=== PATIENT | male | born 1940 | race Caucasian/White ===

== ENCOUNTER → 2018-08-25 09:34 | Outpatient (CLI) | payer MEDICARE, SELFPAY ==
[2016-11-14 10:40] VITALS: BMI 20.4
--- NOTE | 2018-08-25 09:37 | RAD_ITS ---
STUDY: X-RAY - LEFT KNEE REASON FOR EXAM: Male, 77 years old. KNEE PAIN TECHNIQUE: 4 view(s) of the knee. COMPARISON: None. FINDINGS: There is demineralization of the visualized distal femur. There is demineralization of the tibia and fibula. Normal proximal tibiofibular articulation. Total left knee arthroplasty. Normal medial femorotibial compartment. Normal lateral femorotibial compartment. Normal patellofemoral articulation. The soft tissue structures are unremarkable. RAD/Knee 4 or More Views IMPRESSION: Total knee arthroplasty. Electronically Signed: Felix Hamlin MD at 17:53 EST , Service support ,
--- OUTSIDE RECORDS SUMMARY | 2018-10-11 03:13 | XMS RPT_ITS ---
:1940 Author Organization OHIP Care Team Providers Name Role Phone JOSUE BOUCHER Admitting Unavailable JOSUE BOUCHER Attending Unavailable JOSUE BOUCHER Admitting Unavailable JOSUE BOUCHER Attending Unavailable ANDERSON CROWLEY Attending Unavailable ANDERSON CROWLEY Referring Unavailable ANDERSON CROWLEY Referring Unavailable ANDERSON CROWLEY Referring Unavailable JOSUE BOUCHER Attending Unavailable ANDERSON CROWLEY Referring Unavailable POLLY CARTAGENA (TIRE VULCANIZER) Referring Unavailable POLLY CARTAGENA (TIRE VULCANIZER) Attending Unavailable JOSUE HARTMANN Referring Unavailable VALERIE CHO (PA) Attending Unavailable ANDERSON CROWLEY Referring Unavailable REBECCA WILKES (TIRE VULCANIZER) Attending Unavailable JOSUE BOUCHER Referring Unavailable WILSON MOYA Attending Unavailable Tasia Trotter Attending Unavailable Anderson Crowley Referring Unavailable Tasia Trotter Attending Unavailable Tasia Trotter Referring Unavailable Anderson Crowley Primary Care Unavailable PROBLEMS PROBLEMS DATE TYPE CONDITION / CODE ATTENDING STATUS SOURCE 09/14/2018 Unknown M25.562 - Pain in [place], Active [facility] left knee / [facility] M25.562(ICD-10) Hospital Repository 08/29/2018 Unknown M17.12 - Unilateral [place], Active [facility] primary [facility]ly [facility] osteoarthritis, left Hospital knee / Repository M17.12(ICD-10) 05/19/2018 Active Spondylosis without JOSUE BOUCHER Active [facility] [place] [facility] myelopathy or Clinic Other radiculopathy, [place] lumbar region / Repository M47.816(ICD-10) 03/31/2018 Active Unspecified JOSUE BOUCHER Active [facility] inflammatory Clinic Other spondylopathy, [place] sacral and Repository sacrococcygeal region / M46.98(ICD-10) 03/31/2018 Active Sacrococcygeal JOSUE BOUCHER Active [facility] disorders, not Clinic Other elsewhere classified [place] / M53.3(ICD-10) Repository 03/31/2018 Active Other chronic pain / JOSUE BOUCHER Active [facility] G89.29(ICD-10) Clinic Other [place] Repository 03/26/2015 Active Personal history of NA Active [facility] malignant neoplasm Clinic Main of larynx / [place] Z85.21(ICD-10) Repository 03/14/2018 Active Unknown / JOSUE BOUCHER Active [facility] UNK(Unknown) Clinic Main [place] Repository 03/02/2018 Active 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[facility] ectasia / Clinic Main I77.811(ICD-10) [place] Repository 01/13/2014 Active Other intervertebral NA Active [facility] disc degeneration, Clinic Main lumbar region / [place] M51.36(ICD-10) Repository 02/21/2018 Active Benign prostatic NA Active [facility] hyperplasia with Clinic Main lower urinary tract [place] symptoms / Repository N40.1(ICD-10) PROCEDURES PROCEDURES No Procedure Records FoundRESULTS RESULTS ORTHOPEDIC VISIT Observed: 08/25/2018 Status: F Source: [facility] RE[facility] 10:49 AM [facility] [place] REPOSITORY [facility] [address] [place] [address] OFFICE VISIT Date of Service: 08/25/18 MR#: [id number] Acct: [id number] Name: BARTOOLLUDINMADDI Rep #: [id number] : 1940 Provider: Tasia Trotter DO Age/Sex: 77/M Location: [facility] [place] Status: Signed Intake Intake Visit Reasons: LEFT KNEE Is patient in pain?: No Allergies morphine Adverse Reaction (Verified 08/25/18 09:30) Vomiting DUST Allergy (Uncoded 11/14/16 10:43) Other MOLD Allergy (Uncoded 11/14/16 10:43) Other Medications Atenolol [Tenormin (beta racheal)] 12.5 mg PO DAILY 09/15/16 [History Confirmed 09/08/17] Fluticasone 0.05% [Flonase Nasal [place]] 2 spray NASAL QHS 09/15/16 [History Confirmed 09/08/17] gabapentin 300 mg capsule 300 mg PO .QID cap 09/02/17 [History Confirmed 09/08/17] omeprazole 20 mg capsule,delayed release 20 mg PO BID 09/02/17 [History Confirmed 09/08/17] PFSH Surgical History H/O hernia repair (Inactive) History of tonsillectomy (Inactive) S/P total knee arthroplasty (Inactive) Social History Smoking Status: Former smoker how long ago did patient quit smokin HPI LEFT KNEE: Details: MADDI EATON is a 77 year old M here today for a year followup after his left TKA by Dr Cazares on 09/22/17. Patient states that his knee is doing better than prior to surgery. He has clicking at times but it is not often. Patient is pleased with his surgery. He denies any restrictions and is back to all of his activities. ROS Const Reports system reviewed and no additional complaints, except as docu Eyes Reports system reviewed and no additional complaints, except as docu ENT Reports system reviewed and no additional complaints, except as docu Card Reports system reviewed and no additional complaints, except as docu Resp Reports system reviewed and no additional complaints, except as docu GI Reports system reviewed and no additional complaints, except as docu Reports system reviewed and no additional complaints, except as docu Skin/Breast Reports system reviewed and no additional complaints, except as docu Neuro Yes system reviewed and no additional complaints, except as docu Psych Reports system reviewed and no additional complaints, except as docu Endo Reports system reviewed and no additional complaints, except as docu Ortho Exam Left Knee Skin/Wound: Yes CDI Contralateral Normal: Yes Swelling: No Homans Sign: No Knee ROM: Yes ROM-Extension -20 to 0, Yes ROM-Flexion 0-140 Assessment AND Plan 1. Osteoarthritis of left knee M17.12 Plan X-rays were reviewed. There is no obvious fracture, dislocation, or lucency noted, well aligned and seated TKA He is doing great and has full painfree rom. Follow up as needed or sooner if pain, swelling, numbness or associated symptoms, or concerns develop. All questions answered. Patient in agreement of plan. Plan Detail Other Orders Orders: Coding Level of Care Code Off vis,est,level 2 Diagnoses Osteoarthritis of left knee M17.12 08/25/18 1049 <Electronically signed by Tasia Trotter DO> Date Tasia Trotter DO Cosigner Signature: Date (if applicable) CC: KNEE 4 OR MORE Observed: 08/25/2018 Status: F Source: [facility] VIEWS 9:37 AM [facility] REPOSITORY [facility] Imaging Services [address] [place] [address] Knee 4 or More Views MR#: [id number] Acct: [id number] Name: TRINOMADDI C Rep #: [id number] : 1940 77 From: Felix Hamlin MD PCP: Anderson Crowley MD Status: REG CLI Study: Knee 4 or More Views Date of Exam: 08/25/18 Exam# [id number] Ordering Dr: Tasia Trotter DO STUDY: X-RAY - LEFT KNEE REASON FOR EXAM: Male, 77 years old. KNEE PAIN TECHNIQUE: 4 view(s) of the knee. COMPARISON: None. FINDINGS: There is demineralization of the visualized distal femur. There is demineralization of the tibia and fibula. Normal proximal tibiofibular articulation. Total left knee arthroplasty. Normal medial femorotibial compartment. Normal lateral femorotibial compartment. Normal patellofemoral articulation. The soft tissue structures are unremarkable. RAD/Knee 4 or More Views IMPRESSION: Total knee arthroplasty. Electronically Signed: Felix Hamlin MD at 17:53 EST , Service support , CC: Tasia Trotter DO; Anderson Crowley MD Truck Despatcher: Signed PROGRESS Observed: 06/20/2018 Status: COMPLETED Source: [place] 9:15 AM [facility] REPOSITORY HNO ID: [id number] Author: Wilson Moya Service: (none) Author Type: Physician Type: Progress Notes Filed: 06/21/2018 9:08 AM Note Text: [facility] Note CC: Difficulty swallowing Last clinic visit on 06/28/[address] Odom. 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 He has had persistent difficulty swallowing after treatment. 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 He reports that pills and some liquids and solids feel as though they get stuck. Every few months he might have some nasal regurgitation but he is not bothered by it. He continues not smoke and he has stable hoarse voice. He has no new lymphadenopathy, change in hearing, otalgia. Current Outpatient Prescriptions: B Complex Vitamins capsule Take 1 capsule by mouth once daily. Disp: Rfl: atenolol (TENORMIN) 25 mg tablet Take 0.5 tablets by mouth once daily. Disp: 45 tablet Rfl: 3 omeprazole (PRILOSEC) 20 mg capsule Take 1 capsule by mouth twice daily. Disp: 180 capsule Rfl: 3 gabapentin (NEURONTIN) 300 mg capsule Take 1 capsule by mouth three times daily for 28 days. Disp: 270 capsule Rfl: 3 midodrine (PROAMITINE) 5 mg tablet Take 1 tablet by mouth three times daily. Disp: 270 tablet Rfl: 3 betamethasone valerate 0.1 % lotion Apply 1 application to affected area twice daily. For scalp itch Disp: 240 mL Rfl: 0 ketoconazole (NIZORAL) 2 % shampoo Shampoo twice a week: leave on for 2-3 minutes Disp: 240 mL Rfl: 2 CALCIUM CARBONATE/VITAMIN D3 (VITAMIN D-3 ORAL) Take by mouth once daily. Disp: Rfl: acetaminophen (TYLENOL) 325 mg tablet Take 2 tablets by mouth every 6 hours as needed for Pain. Disp: Rfl: 0 Ascorbic Acid (VITAMIN C) 1,000 mg ORAL tablet Take 1,000 mg by mouth once daily. Disp: Rfl: Vitamin E 400 unit ORAL Tab Take 1 tablet by mouth once daily. Disp: Rfl: multivitamin ORAL tablet Take 1 tablet by mouth once daily. Disp: Rfl: 0 No current facility-administered medications for this visit. EXAM: Constitutional - General Appearance: well developed, well nourished, without obvious deformities Communication: speaks with a hoarse voice without hoarseness Head AND Face - Overall: no obvious scars, lesions or masses Parotid and submandibular glands: no masses or tenderness Facial strength: normal and equal bilaterally Ear, Nose, Mouth AND Throat - Ears: both left and right external auditory canals and TM's are normal, no external deformities Nasal exam: mucosa is pink, septum is midline, visible turbinates are normal on anterior rhinoscopy Mastication: teeth appear to have some cavities Oral Cavity and oropharynx: mucosa, hard and soft palates, tongue, tonsil area, posterior pharyngeal wall, lips and gums are without lesions Neck: [place] edema in the bilateral neck, appears symmetric, and on palpation is without masses or lymphadenopathy Thyroid: no asymmetry, thyromegaly, or thyroid nodules on palpation Neuro: CN III - CN XII grossly intact Procedure: Flexible laryngoscopy was performed because of the following indication: Poor visualization with mirror and/or the need for high resolution imaging of the larynx and dynamic airway. After spraying the nose with xylocaine/neosynephrine, the flexible scope was placed in a transnasal fashion. The nasopharynx, oropharynx, hypopharynx including the pyriform sinuses showed dry mucosa AND some prominent blood vessels. The base of tongue showed no gross lesions. The larynx itself showed no lesions. The vocal cords moved well bilaterally. Procedure performed by Wilson Moya MD. 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 No evidence of disease reoccurrence. Dysphagia remains stable and he is tolerating a regular diet without weight loss. PLAN AND RECOMMENDATIONS: 1. Flexible laryngoscopy today 2. Follow-up as needed Adrián Beavers MD For the service of Wilson Moya MD June 21, 2018 I participated in the history and physical exam of Maddi Eaton. I discussed the management of Maddi Eaton with the resident. I reviewed the resident's note and agree with the documented findings and plan of care. Wilson Moya MD CNOV Observed: 06/20/2018 Status: COMPLETED Source: [place] 9:00 AM [facility] REPOSITORY Office Visit (OTOLMN) MADDI EATON ([id number]) 1940 M Date Time Provider Department 06/20/18 9:00 AM WILSON MOYA OTOLVT During your visit today, we recorded the following information about you: Wilson Moya MD 06/21/2018 9:08 AM Signed [facility] Note CC: Difficulty swallowing Last clinic visit on 06/28/[address] Odom. 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 He has had persistent difficulty swallowing after treatment. 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 He reports that pills and some liquids and solids feel as though they get stuck. Every few months he might have some nasal regurgitation but he is not bothered by it. He continues not smoke and he has stable hoarse voice. He has no new lymphadenopathy, change in hearing, otalgia. Current Outpatient Prescriptions: B Complex Vitamins capsule Take 1 capsule by mouth once daily. Disp: Rfl: atenolol (TENORMIN) 25 mg tablet Take 0.5 tablets by mouth once daily. Disp: 45 tablet Rfl: 3 omeprazole (PRILOSEC) 20 mg capsule Take 1 capsule by mouth twice daily. Disp: 180 capsule Rfl: 3 gabapentin (NEURONTIN) 300 mg capsule Take 1 capsule by mouth three times daily for 28 days. Disp: 270 capsule Rfl: 3 midodrine (PROAMITINE) 5 mg tablet Take 1 tablet by mouth three times daily. Disp: 270 tablet Rfl: 3 betamethasone valerate 0.1 % lotion Apply 1 application to affected area twice daily. For scalp itch Disp: 240 mL Rfl: 0 ketoconazole (NIZORAL) 2 % shampoo Shampoo twice a week: leave on for 2-3 minutes Disp: 240 mL Rfl: 2 CALCIUM CARBONATE/VITAMIN D3 (VITAMIN D-3 ORAL) Take by mouth once daily. Disp: Rfl: acetaminophen (TYLENOL) 325 mg tablet Take 2 tablets by mouth every 6 hours as needed for Pain. Disp: Rfl: 0 Ascorbic Acid (VITAMIN C) 1,000 mg ORAL tablet Take 1,000 mg by mouth once daily. Disp: Rfl: Vitamin E 400 unit ORAL Tab Take 1 tablet by mouth once daily. Disp: Rfl: multivitamin ORAL tablet Take 1 tablet by mouth once daily. Disp: Rfl: 0 No current facility-administered medications for this visit. EXAM: Constitutional - General Appearance: well developed, well nourished, without obvious deformities Communication: speaks with a hoarse voice without hoarseness Head AND Face - Overall: no obvious scars, lesions or masses Parotid and submandibular glands: no masses or tenderness Facial strength: normal and equal bilaterally Ear, Nose, Mouth AND Throat - Ears: both left and right external auditory canals and TM's are normal, no external deformities Nasal exam: mucosa is pink, septum is midline, visible turbinates are normal on anterior rhinoscopy Mastication: teeth appear to have some cavities Oral Cavity and oropharynx: mucosa, hard and soft palates, tongue, tonsil area, posterior pharyngeal wall, lips and gums are without lesions Neck: [place] edema in the bilateral neck, appears symmetric, and on palpation is without masses or lymphadenopathy Thyroid: no asymmetry, thyromegaly, or thyroid nodules on palpation Neuro: CN III - CN XII grossly intact Procedure: Flexible laryngoscopy was performed because of the following indication: Poor visualization with mirror and/or the need for high resolution imaging of the larynx and dynamic airway. After spraying the nose with xylocaine/neosynephrine, the flexible scope was placed in a transnasal fashion. The nasopharynx, oropharynx, hypopharynx including the pyriform sinuses showed dry mucosa AND some prominent blood vessels. The base of tongue showed no gross lesions. The larynx itself showed no lesions. The vocal cords moved well bilaterally. Procedure performed by Wilson Moya MD. 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 No evidence of disease reoccurrence. Dysphagia remains stable and he is tolerating a regular diet without weight loss. PLAN AND RECOMMENDATIONS: 1. Flexible laryngoscopy today 2. Follow-up as needed Adrián Beavers MD For the service of Wilson Moya MD June 21, 2018 I participated in the history and physical exam of Maddi Eaton. I discussed the management of Maddi Eaton with the resident. I reviewed the resident's note and agree with the documented findings and plan of care. MD Julia Coulter Ma 06/20/2018 9:17 AM Signed Tobacco Use: 3 packs/day, for 46 years. Quit 06/17/2003. Types: Cigarettes, Chew Was smoking cessation packet given? N/A - Patient is a non- smoker or quit >1 year ago. Was a referral initiated?N/A Patient is a non-smoker Referring Provider: SELF [200] Allergies As of Date: 06/20/2018 Noted Allergy Reaction DUST 06/02/2005 MOLD 06/02/2005 MORPHINE 08/20/2008 11 - Vomiting POISON DENISSE 06/02/2005 Date Reviewed: 06/20/2018 Reviewed by: Julia Carmona Ma - Fully Assessed Reason for Visit: Established Patient [175] Cmt: follow up Primary Visit Diagnosis:History of cancer of head or neck [Z85.89] Other Visit Diagnosis:History of radiation to head and neck region [Z92.3] Prescriptions as of 06/20/2018 Sig: VITAMIN B COMPLEX CAPSULE Take 1 capsule by mouth once * ATENOLOL 25 MG TABLET Take 0.5 tablets by mouth onc* OMEPRAZOLE 20 MG CAPSULE,CIRO* Take 1 capsule by mouth twice* MIDODRINE 5 MG TABLET Take 1 tablet by mouth three * BETAMETHASONE VALERATE 0.1 % * Apply 1 application to affect* KETOCONAZOLE 2 % SHAMPOO Shampoo twice a week: leave o* VITAMIN D-3 ORAL Take by mouth once daily. ACETAMINOPHEN 325 MG TABLET Take 2 tablets by mouth every* * ASCORBIC ACID (VITAMIN C) 1,0* Take 1,000 mg by mouth once d* * VITAMIN E 400 UNIT TABLET Take 1 tablet by mouth once d* * MULTIVITAMIN TABLET Take 1 tablet by mouth once d* GABAPENTIN 300 MG CAPSULE Take 1 capsule by mouth three* Problem List As Of Date 06/20/2018 Noted Resolved Unspecified chest pain [R07.9] INVALID FOR*07/09/2010 CALCULUS OF KIDNEY [N20.0] INVALID FOR* Essential hypertension [I10] INVALID FOR* More... 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 Acute gastritis without mention of hemorrhage [*INVALID FOR*07/09/2010 Irritable bowel syndrome [K58.9] INVALID FOR*07/09/2010 Unspecified disorder of prostate [N42.9] INVALID FOR* More... Esophageal reflux [K21.9] INVALID FOR* More... MYALGIA AND MYOSITIS NOS [IOW2692] INVALID FOR* Pain in joint, multiple sites [M25.50] INVALID FOR*07/09/2010 RENAL AND URETERAL DIS NOS [N28.9] INVALID FOR* THYROID NODULE [E04.1] INVALID FOR*07/09/2010 ENLARGEMENT LYMPH NODES NECK [R59.9] INVALID FOR*07/09/2010 MALIG NEOPLASM SUPRAGLOTTIS - SQUAMOUS CELL CA *INVALID FOR*03/26/2014 More... Peripheral neuropathy, secondary to drugs or ch*INVALID FOR*12/10/2016 Diaphragmatic hernia without mention of obstruc*INVALID FOR* Acute gastritis without mention of hemorrhage [*INVALID FOR* Dysphagia [R13.10] INVALID FOR* Degeneration of cervical intervertebral disc [M*INVALID FOR* Cervicalgia [M54.2] INVALID FOR* DDD (degenerative disc disease), lumbar [M51.36]INVALID FOR* Degeneration of intervertebral disc, site unspe*INVALID FOR*12/10/2016 H/O malignant neoplasm of head and neck [Z85.89]INVALID FOR* Right shoulder pain [M25.511] INVALID FOR* Impingement syndrome of right shoulder [M75.41] INVALID FOR* 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] INVALID FOR*12/10/2016 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 Visit Notes: >> Julia Carmona Ma [facility] Jun 20, 2018 9:17 AM Status: Signed Tobacco Use: 3 packs/day, for 46 years. Quit 06/17/2003. Types: Cigarettes, Chew Was smoking cessation packet given? N/A - Patient is a non- smoker or quit >1 year ago. Was a referral initiated?N/A Patient is a non-smoker Encounter Status:Closed by WILSON MOYA MD on 06/21/18 PT ED Observed: 06/02/2018 Status: COMPLETED Source: [place] 10:45 AM [facility] OTHER [place] REPOSITORY HNO ID: [id number] Author: Emily (Rn) CHAVEZ Appiah Service: Nursing Author Type: Registered Nurse Type: Patient Education Filed: 06/02/2018 10:45 AM Note Text: POST OP LEARNING RESPONSE INSTRUCTION PROVIDED TO: Patient METHOD OF INSTRUCTION: Written instruction - handouts Verbal instruction PATIENT / FAMILY RESPONSE: Information received as demonstrated by interest and questions FOLLOW-UP PLAN: Patient instructed to call with any further issues SUPPLEMENTAL MATERIAL: None REFERRAL (RECOMMENDATION): None Electronically Signed By: Emily Appiah RN In Department: [facility] SURGERY XR FLUOROSCOPY Observed: 06/02/2018 Status: F Source: [place] 10:35 AM [facility] OTHER CAMPUS REPOSITORY * * *Final Report* * * DATE OF EXAM: Jun 02 2018 10:35AM [facility] 5513 - XR FLUOROSCOPY / PROCEDURE REASON: BILATERAL L5-S1 FACET MEDIAL BRANCH BLOCK FOR PAIN * * * * Physician Interpretation * * * * INDICATION: BILATERAL L5-S1 FACET MEDIAL BRANCH BLOCK FOR PAIN TECHNIQUE: Fluoroscopy with 3 views of the lower lumbar spine Fluoroscopic Radiation Summary: Plane A, Air Kerma: 4.6 mGy Dose Area Product (DAP): 414.2 mGy*cmS2 Fluoro time: 0:23 min:sec FINDINGS/ IMPRESSION: [place] are seen adjacent to the lowest to facet joints bilaterally. Please refer to the performing LIP's report. Truck Despatcher: PSCB Transcribe Date/Time: Jun 02 2018 10:51A Dictated by : KIRSTIN SPEARS MD This examination was interpreted and the report reviewed and electronically signed by: KIRSTIN SPEARS MD on Jun 02 2018 10:51AM EST [id number] OPERATIVE NO Observed: 06/02/2018 Status: COMPLETED Source: [place] 10:33 AM [facility] OTHER CAMPUS REPOSITORY HNO ID: [id number] Author: Josue Boucher Service: Pain Management Author Type: Physician Type: Operative Report Filed: 06/02/2018 10:35 AM Note Text: PATIENT NAME: Maddi Eaton SERVICE DATE: 06/02/2018 PROCEDURE NOTE PREOPERATIVE DIAGNOSIS(ES): Lumbar degenerative disc disease. Lumbar spondylosis. Lumbar facet arthropathy POSTOPERATIVE DIAGNOSIS(ES): Same OPERATION: Bilateral L5-S1 facet Lumbar Facet Medial Branch Nerve Blockunder fluoroscopy. ANESTHESIA: Versed 3 mg, IV INDICATIONS: Maddi Eaton presents for facet joint injection. The pain is persistent. Maddi Eaton denies any new neurological or pain complaints. The patient has spondylosis at lower lumbar segments with predominant changes at L5-S1 levels. As discussed in the office and confirmed today, the plan is to proceed with lumbar facet joint injection. The risks and benefits of the procedure were discussed. Specifically, the risks of bleeding, infection, inadvertent dural puncture, spinal heaches, vasovagal reaction, epidural hematoma, partial or permanent nerve injury were covered. The potential side effects of medications used in procedures including increase in lumbar pain, headaches, facial redness or warmth (flushing), anxiety or mood swings, sleeplessness, fever, high blood sugar, brief reduction in immunity were discussed. The patient expressed understanding of potential risks and wishes to proceed with the procedure. OPERATIVE PROCEDURE: The patient was brought to the OR. The patient was positioned prone on the fluoroscopy table. Continuous hemodynamic monitoring was initiated including blood pressure, EKG, and pulse oximetry. IV sedation was administered incrementally to allow the patient to remain comfortable and conversant throughout the procedure. The area of the lumbar spine was prepped povidone-iodine three times and draped into a sterile field. Fluoroscopy was rotated to right oblique projection to identify the location of the L5-S1 medial branch nerves at the junctions of the superior articular process and the transverse processes of L5, and the sacral ala respectively. Skin anesthesia was achieved using 10 cc of marcaine 0.25% over the injection sites. A 22 gauge, 3.5 spinal needle was slowly inserted at each level using AP, lateral and oblique fluoroscopic imaging. Negative aspiration for blood or CSF was confirmed. The fluoroscopy was then rotated to the contralateral side and the needle placement sites were identified. Same technique was used to place the needles on the contralateral side. There were total of 6 needle placements. A total of 4ml of a medication mixture of 5mg of Kenalog per 1ml of Marcaine 0.25% was injected. A total of 4 sites were injected in equal and divided doses. The needles were removed and bleeding was nil. A sterile dressing was applied. The patient tolerated the procedure well. The patient was taken to the recovery room in stable condition. EBL: nil Start time: 10:21 AM End time: 10:30 AM I was present the entire time and personally performed the procedure. SIGNATURE: Josue Boucher MD DATE: June 02, 2018 TIME: 10:34 AM HISTORY PHYSICAL Observed: 06/02/2018 Status: COMPLETED Source: [place] 10:10 AM [facility] OTHER CAMPUS REPOSITORY [facility] ID: [id number] Author: Josue Boucher Service: Pain Management Author Type: Physician Type: HANDP Filed: 06/02/2018 10:11 AM Note Text: HISTORY AND PHYSICAL EXAMINATION PATIENT NAME: Maddi Eaton DATE of SERVICE: 06/02/2018 Maddi Eaton is here for the pain mangement procedure. The patient presents with persistent pain complaints. Maddi Eaton denies any interval changes or new pain complaints or focal neurologic deficits. 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 - Orthostatic hypotension - Osteoarthrosis, unspecified whether generalized or localized, unspecified site osteoarthritis PAST SURGICAL HISTORY Procedure Laterality Date - COLONOSCOP W/ OR W/O BRSH SPEC 06/22/16 Colonoscopy - COLONOSCOPY W/BX 06/09/06 - EGD 06/28/2000 - EGD W/O BRSH SPECIMEN W/BX 06/2000, 06/09/06 - EGD W/O BRSH SPECIMEN W/BX 07/09/11 - EGD W/O OR W/BRUSH/WASH 02/17/16 EGD - PAST SURGICAL HISTORY OF 1959 left inguinal hernia - PAST SURGICAL HISTORY OF 1964 right inguinal hernia - PAST SURGICAL HISTORY OF kidney stones extraction - REMOVAL OF TONSILS,<14 Y/O age 10 Tonsillectomy - 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 Social History Marital status: Spouse name: Marcus Years of education: Number of children: 0 Occupational History Occupation Employer Comment [employer]* Social History Main Topics Smoking status: Former Smoker Packs/day: 3.00 Years: 46.00 Types: Cigarettes Quit date: 06/17/2003 Smokeless tobacco: Former User Types: Chew Quit date: 04/13/2009 Alcohol use: No Drug use: No FAMILY HISTORY Problem Relation Age of Onset - Heart Mother arthritis - other (unknown) Father ALLERGIES Allergen Reactions - Dust - Mold - Morphine Vomiting - Poison Denisse Current Facility-Administered Medications: NaCl 0.9% iv infusion 30 mL/hr INTRAVENOUS CONTINUOUS Physical Exam: Performed in conjunction with observation. The patient is alert and oriented x3. The patient is in no acute distress. Neck: Supple. The range of motion is intact. Lungs: clear CVR: RRR. Extremities: no reported edema or erythema. Examination indicates no changes Impression: Lumbar facet arthropathy Plan: The informed consent has been obtained. The plan is to proceed with the procedure as planned. SIGNATURE: Josue Boucher MD DATE: June 02, 2018 TIME: 10:11 AM PT ED Observed: 06/02/2018 Status: COMPLETED Source: [place] 9:17 AM CLINIC OTHER CAMPUS REPOSITORY [facility] ID: [id number] Author: Zay (Rn) CHAVEZ Murray Service: Nursing Author Type: Registered Nurse Type: Patient Education Filed: 06/02/2018 9:18 AM Note Text: PATIENT EDUCATION TOPIC: PROCEDURE / SURGERY: Pre-op Teaching: PATIENT NAME: Maddi Eaton PATIENT LOCATION: [place] Surgery/ME Surgery READINESS TO LEARN COGNITIVE ABILITY: Alert and oriented MOTIVATION TO LEARN: Eager FAMILY SUPPORT: Moderate - Family present but overwhelmed INSTRUCTION PROVIDED TO: Patient PATIENT LEARNS BEST BY: Individual Instruction Verbal Instruction FACTORS AFFECTING LEARNING: None PHYSICAL LIMITATIONS AFFECTING LEARNING: None LEARNING RESPONSE DIAGNOSIS: ADULT: PATIENT/FAMILY RESPONSE: Verbalizes understanding of: METHOD OF INSTRUCTION: Individual instruction Verbal instruction FOLLOW-UP PLAN: Patient instructed to call with any further issues Follow-up with Primary Care INSTRUCTIONAL AIDS USED: NA SUPPLEMENTAL MATERIAL PROVIDED TO PATIENT: None REFERRAL (RECOMMENDATION): None Electronically Signed By: Zay Murray RN [facility] Observed: 05/19/2018 Status: COMPLETED Source: [place] 12:00 AM [facility] REPOSITORY Patient:Maddi Eaton MRN: <[id number]> Height:6' 1(1.854 m) Weight:154 lb (69.854 kg) Outpatient Medications as of 06/02/18: B Complex Vitamins capsule atenolol (TENORMIN) 25 mg tablet omeprazole (PRILOSEC) 20 mg capsule gabapentin (NEURONTIN) 300 mg capsule midodrine (PROAMITINE) 5 mg tablet betamethasone valerate 0.1 % lotion ketoconazole (NIZORAL) 2 % shampoo CALCIUM CARBONATE/VITAMIN D3 (VITAMIN D-3 ORAL) acetaminophen (TYLENOL) 325 mg tablet Ascorbic Acid (VITAMIN C) 1,000 mg ORAL tablet Vitamin E 400 unit ORAL Tab multivitamin ORAL tablet Admission/Clinic Administered Medications as of 06/02/18: NaCl 0.9% iv infusion Problem List: Calculus of kidney [N20.0] Essential hypertension [I10] Personal history of tobacco use, presenting hazards to health [Z87.891] Benign neoplasm of colon [D12.6] Unspecified disorder of prostate [N42.9] Esophageal reflux [K21.9] Myalgia and myositis, unspecified [SUT8608] Unspecified disorder of kidney and ureter [N28.9] Diaphragmatic hernia without mention of obstruction or gangrene [K44.9] Acute gastritis without mention of hemorrhage [K29.00] Dysphagia [R13.10] Degeneration of cervical intervertebral disc [M50.30] Cervicalgia [M54.2] DDD (degenerative disc disease), lumbar [M51.36] H/O malignant neoplasm of head and neck [Z85.89] Right shoulder pain [M25.511] Impingement syndrome of right shoulder [M75.41] 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] Chronic fatigue [R53.82] 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, 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.36] Chronic obstructive pulmonary disease (HCC) [J44.9] Dysautonomia orthostatic hypotension syndrome (HCC) [G90.3] Chronic bilateral low back pain with left-sided sciatica [M54.42, G89.29] Chronic SI joint pain [M53.3, G89.29] 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 Boucher and he can try a bilateral L5-S1 facet injection Order placed. Please call patient and schedule Sarah Anaya 05/18/2018 2:08 PM Signed Patient will contact us back once he finds out about a ride, instructed patient the sooner the better as his injection dates are filling up. Progress Notes ([facility]): Rebecca Wilkes APRN.CNP 05/10/2018 10:35 AM Signed SUBJECTIVE: Maddi Eaton presents to [facility] Pain Management Department for a followup appointment for post injection and low back pain. Since the last visit, Maddi Eaton states the pain has been getting worse. Current pain intensity is 10 on a scale of 0-10. Pain located in Back area and radiates to the buttocks and both hips. Pain described as aching The patient Reports morning stiffness. Symptoms interfere with physical activity. Pain is exacerbated by standing, forward flexion, lifting, getting up from sitting and walking. Pain is mitigated by lying down. The patient is overall improved with the injections by 0%. REVIEW OF SYSTEMS: Constitutional: (-) Fever (-) Night Sweats (-) Weight Gain (-) Weight Loss (+) Fatigue Cardiovascular: (-) Chest Pain (-) Palpitations (+) Lightheadedness (-) Swelling of Ankles (-) Hx Heart Surgery Respiratory: (-) Shortness of Breath (-) Cough (-) Wheezing (-) Snoring Gastrointestinal: (-) Incontinence (-) Abdominal Pain (+) Diarrhea (+) Constipation (-) Nausea/Vomiting (-) Heart Burn Endocrine: (-) Thyroid Disorder (-) Diabetes Hematologic: (-) Prolonged Bleeding (-) Easy Bruising Genitourinary: (-) Incontinence (-) Frequency (-) Urinary Urgency Skin: (-) Rashes (-) Itching (-) Other Lesions Neurologic: (-) Headache (-) Double Vision (-) Confusion (-) Paralysis Psychiatric: (-) Depression (-) Anxiety (-) Delusions (-) Hallucinations (-) Personal History of Alcohol or Substance Abuse (-) Family History of Alcohol or Substance Abuse OBJECTIVE: Pulse 76 Wt 154 lb (69.9kg) SpO2 95% PHYSICAL EXAMINATION: General appearance: Well appearing, in no acute distress, alert Skin: Skin color, texture, turgor normal, no rashes or lesions Neck: No pain to palpation over the cervical paraspinous muscles. No pain with neck flexion, extension, or lateral flexion Cardiovascular: Regular rate Lungs: Normal respiratory rate and rhythm Abdomen: Abdomen soft and non-tender. Back: Intact range of motion with pain reproduction. Positive facet loading Spine: Reports Tenderness on palpation: Lumbar/Pelvic axial Extremities: No deformities, edema, or skin discoloration. Good capillary refill. Musculoskeletal: Bilateral upper and lower extremity strength is normal and symmetric. No atrophy or tone abnormalities are noted. Neuro: No loss of sensation is noted. Station and Gait: antalgic gait Motor: Exhibits full strength in all four extremities. Trigger points: none. ASSESSMENT: Assessment : Patient reports lower back pain and bilateral SI tenderness. He denies radicular symptoms and states the pain is more axial The pain radiates into the hips and buttocks He reports he experiences cramping in his feet She had a bilateral SI injections on ??18 and reports no improvement He completed physical therapy a year ago and continues to [place] the rec center using the exercise machines During the winter he cuts firewood using a chainsaw His primary care has some on gabapentin 300 mg 3 times a day Encounter Diagnosis ICD-10-CM 1. SI joint arthritis (HCC) M46.98 2. Chronic SI joint pain M53.3 G89.29 3. Degeneration of lumbar intervertebral disc M51.36 PDMP website checked and validated. All prescriptions have been APPROPRIATELY filled. No suspicious activity was identified. 05/10/2018 by Roselia Robbins MA Narcotic Agreement reviewed and signed?: N/A on May 10, 2018 The pain panel was N/A PLAN: 1) will discuss with Dr. Boucher if facet injections are an option. Will call patient and discuss further recommendations 2) continue to go to the rec center and use her exercise machines 3) RTC 3 months This note was partially generated using [employer] voice recognition system. The above plan and management options were discussed at length with patient. Patient is in agreement with the above and verbalized understanding. Rebecca Wilkes APRN, CNP May 10, 2018 Previous Version PROGRESS Observed: 05/10/2018 Status: COMPLETED Source: [place] 10:02 AM [facility] REPOSITORY [facility] ID: [id number] Author: Rebecca Ortiz (Ashok Wilkes Service: (none) Author Type: Nurse Practitioner Type: Progress Notes Filed: 05/10/2018 10:35 AM Note Text: SUBJECTIVE: Maddi Eaton presents to [facility] Pain Management Department for a followup appointment for post injection and low back pain. Since the last visit, Maddi Eaton states the pain has been getting worse. Current pain intensity is 10 on a scale of 0-10. Pain located in Back area and radiates to the buttocks and both hips. Pain described as aching The patient Reports morning stiffness. Symptoms interfere with physical activity. Pain is exacerbated by standing, forward flexion, lifting, getting up from sitting and walking. Pain is mitigated by lying down. The patient is overall improved with the injections by 0%. REVIEW OF SYSTEMS: Constitutional: (-) Fever (-) Night Sweats (-) Weight Gain (-) Weight Loss (+) Fatigue Cardiovascular: (-) Chest Pain (-) Palpitations (+) Lightheadedness (-) Swelling of Ankles (-) Hx Heart Surgery Respiratory: (-) Shortness of Breath (-) Cough (-) Wheezing (-) Snoring Gastrointestinal: (-) Incontinence (-) Abdominal Pain (+) Diarrhea (+) Constipation (-) Nausea/Vomiting (-) Heart Burn Endocrine: (-) Thyroid Disorder (-) Diabetes Hematologic: (-) Prolonged Bleeding (-) Easy Bruising Genitourinary: (-) Incontinence (-) Frequency (-) Urinary Urgency Skin: (-) Rashes (-) Itching (-) Other Lesions Neurologic: (-) Headache (-) Double Vision (-) Confusion (-) Paralysis Psychiatric: (-) Depression (-) Anxiety (-) Delusions (-) Hallucinations (-) Personal History of Alcohol or Substance Abuse (-) Family History of Alcohol or Substance Abuse OBJECTIVE: Pulse 76 Wt 154 lb (69.9kg) SpO2 95% PHYSICAL EXAMINATION: General appearance: Well appearing, in no acute distress, alert Skin: Skin color, texture, turgor normal, no rashes or lesions Neck: No pain to palpation over the cervical paraspinous muscles. No pain with neck flexion, extension, or lateral flexion Cardiovascular: Regular rate Lungs: Normal respiratory rate and rhythm Abdomen: Abdomen soft and non-tender. Back: Intact range of motion with pain reproduction. Positive facet loading Spine: Reports Tenderness on palpation: Lumbar/Pelvic axial Extremities: No deformities, edema, or skin discoloration. Good capillary refill. Musculoskeletal: Bilateral upper and lower extremity strength is normal and symmetric. No atrophy or tone abnormalities are noted. Neuro: No loss of sensation is noted. Station and Gait: antalgic gait Motor: Exhibits full strength in all four extremities. Trigger points: none. ASSESSMENT: Assessment : Patient reports lower back pain and bilateral SI tenderness. He denies radicular symptoms and states the pain is more axial The pain radiates into the hips and buttocks He reports he experiences cramping in his feet She had a bilateral SI injections on ? and reports no improvement He completed physical therapy a year ago and continues to go to the [facility] using the exercise machines During the winter he cuts firewood using a chainsaw His primary care has some on gabapentin 300 mg 3 times a day Encounter Diagnosis ICD-10-CM 1. SI joint arthritis (HCC) M46.98 2. Chronic SI joint pain M53.3 G89.29 3. Degeneration of lumbar intervertebral disc M51.36 PDMP website checked and validated. All prescriptions have been APPROPRIATELY filled. No suspicious activity was identified. 05/10/2018 by Roselia Robbins MA Narcotic Agreement reviewed and signed?: N/A on May 10, 2018 The pain panel was N/A PLAN: 1) will discuss with Dr. Boucher if facet injections are an option. Will call patient and discuss further recommendations 2) continue to go to the rec center and use her exercise machines 3) RTC 3 months This note was partially generated using [employer] voice recognition system. The above plan and management options were discussed at length with patient. Patient is in agreement with the above and verbalized understanding. Rebecca Wilkes APRN, CNP May 10, 2018 CNOV Observed: 05/10/2018 Status: COMPLETED Source: [place] 10:00 AM [facility] REPOSITORY Office Visit (PNMDNA) MADDI EATON ([id number]) 1940 M Date Time Provider Department 05/10/18 10:00 AM REBECCA WILKES ([employer]ER) PNMDNA During your visit today, we recorded the following information about you: Pulse Weight 76/minute 69.9 kg Rebecca Wilkes APRN.MARLA 05/10/2018 10:35 AM Signed SUBJECTIVE: Maddi Eaton presents to [facility] Pain Management Department for a followup appointment for post injection and low back pain. Since the last visit, Maddi Eaton states the pain has been getting worse. Current pain intensity is 10 on a scale of 0-10. Pain located in Back area and radiates to the buttocks and both hips. Pain described as aching The patient Reports morning stiffness. Symptoms interfere with physical activity. Pain is exacerbated by standing, forward flexion, lifting, getting up from sitting and walking. Pain is mitigated by lying down. The patient is overall improved with the injections by 0%. REVIEW OF SYSTEMS: Constitutional: (-) Fever (-) Night Sweats (-) Weight Gain (-) Weight Loss (+) Fatigue Cardiovascular: (-) Chest Pain (-) Palpitations (+) Lightheadedness (-) Swelling of Ankles (-) Hx Heart Surgery Respiratory: (-) Shortness of Breath (-) Cough (-) Wheezing (-) Snoring Gastrointestinal: (-) Incontinence (-) Abdominal Pain (+) Diarrhea (+) Constipation (-) Nausea/Vomiting (-) Heart Burn Endocrine: (-) Thyroid Disorder (-) Diabetes Hematologic: (-) Prolonged Bleeding (-) Easy Bruising Genitourinary: (-) Incontinence (-) Frequency (-) Urinary Urgency Skin: (-) Rashes (-) Itching (-) Other Lesions Neurologic: (-) Headache (-) Double Vision (-) Confusion (-) Paralysis Psychiatric: (-) Depression (-) Anxiety (-) Delusions (-) Hallucinations (-) Personal History of Alcohol or Substance Abuse (-) Family History of Alcohol or Substance Abuse OBJECTIVE: Pulse 76 Wt 154 lb (69.9kg) SpO2 95% PHYSICAL EXAMINATION: General appearance: Well appearing, in no acute distress, alert Skin: Skin color, texture, turgor normal, no rashes or lesions Neck: No pain to palpation over the cervical paraspinous muscles. No pain with neck flexion, extension, or lateral flexion Cardiovascular: Regular rate Lungs: Normal respiratory rate and rhythm Abdomen: Abdomen soft and non-tender. Back: Intact range of motion with pain reproduction. Positive facet loading Spine: Reports Tenderness on palpation: Lumbar/Pelvic axial Extremities: No deformities, edema, or skin discoloration. Good capillary refill. Musculoskeletal: Bilateral upper and lower extremity strength is normal and symmetric. No atrophy or tone abnormalities are noted. Neuro: No loss of sensation is noted. Station and Gait: antalgic gait Motor: Exhibits full strength in all four extremities. Trigger points: none. ASSESSMENT: Assessment : Patient reports lower back pain and bilateral SI tenderness. He denies radicular symptoms and states the pain is more axial The pain radiates into the hips and buttocks He reports he experiences cramping in his feet She had a bilateral SI injections on ?19?18 and reports no improvement He completed physical therapy a year ago and continues to go to the rec center using the exercise machines During the winter he cuts firewood using a chainsaw His primary care has some on gabapentin 300 mg 3 times a day Encounter Diagnosis ICD-10-CM 1. SI joint arthritis (HCC) M46.98 2. Chronic SI joint pain M53.3 G89.29 3. Degeneration of lumbar intervertebral disc M51.36 PDMP website checked and validated. All prescriptions have been APPROPRIATELY filled. No suspicious activity was identified. 05/10/2018 by Roselia Robbins MA Narcotic Agreement reviewed and signed?: N/A on May 10, 2018 The pain panel was N/A PLAN: 1) will discuss with Dr. Boucher if facet injections are an option. Will call patient and discuss further recommendations 2) continue to go to the rec center and use her exercise machines 3) RTC 3 months This note was partially generated using [employer] voice recognition system. The above plan and management options were discussed at length with patient. Patient is in agreement with the above and verbalized understanding. Rebecca Wilkes APRN, [employer] VULCAN[employer]ER May 10, 2018 Referring Provider: JOSUE BOUCHER [[id number]] Allergies As of Date: 05/10/2018 Noted Allergy Reaction DUST 06/02/2005 MOLD 06/02/2005 MORPHINE 08/20/2008 11 - Vomiting POISON DENISSE 06/02/2005 Date Reviewed: 05/10/2018 Reviewed by: Roselia Robbins MA - Fully Assessed Reason for Visit: Established Patient [175] Post Injection [Other] Primary Visit Diagnosis: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] Other Visit Diagnoses:Chronic SI joint pain [M53.3, G89.29] 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.36] Prescriptions as of 05/10/2018 Sig: VITAMIN B COMPLEX CAPSULE Take 1 capsule by mouth once * ATENOLOL 25 MG TABLET Take 0.5 tablets by mouth onc* OMEPRAZOLE 20 MG CAPSULE,CIRO* Take 1 capsule by mouth twice* MIDODRINE 5 MG TABLET Take 1 tablet by mouth three * BETAMETHASONE VALERATE 0.1 % * Apply 1 application to affect* KETOCONAZOLE 2 % SHAMPOO Shampoo twice a week: leave o* VITAMIN D-3 ORAL Take by mouth once daily. ACETAMINOPHEN 325 MG TABLET Take 2 tablets by mouth every* * ASCORBIC ACID (VITAMIN C) 1,0* Take 1,000 mg by mouth once d* * VITAMIN E 400 UNIT TABLET Take 1 tablet by mouth once d* * MULTIVITAMIN TABLET Take 1 tablet by mouth once d* GABAPENTIN 300 MG CAPSULE Take 1 capsule by mouth three* Problem List As Of Date 05/10/2018 Noted Resolved Unspecified chest pain [R07.9] INVALID FOR*07/09/2010 CALCULUS OF KIDNEY [N20.0] INVALID FOR* Essential hypertension [I10] INVALID FOR* More... 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 Acute gastritis without mention of hemorrhage [*INVALID FOR*07/09/2010 Irritable bowel syndrome [K58.9] INVALID FOR*07/09/2010 Unspecified disorder of prostate [N42.9] INVALID FOR* More... Esophageal reflux [K21.9] INVALID FOR* More... MYALGIA AND MYOSITIS NOS [[id number]] INVALID FOR* Pain in joint, multiple sites [M25.50] INVALID FOR*07/09/2010 RENAL AND URETERAL DIS NOS [N28.9] INVALID FOR* THYROID NODULE [E04.1] INVALID FOR*07/09/2010 ENLARGEMENT LYMPH NODES NECK [R59.9] INVALID FOR*07/09/2010 MALIG NEOPLASM SUPRAGLOTTIS - SQUAMOUS CELL CA *INVALID FOR*03/26/2014 More... Peripheral neuropathy, secondary to drugs or ch*INVALID FOR*12/10/2016 Diaphragmatic hernia without mention of obstruc*INVALID FOR* Acute gastritis without mention of hemorrhage [*INVALID FOR* Dysphagia [R13.10] INVALID FOR* Degeneration of cervical intervertebral disc [M*INVALID FOR* Cervicalgia [M54.2] INVALID FOR* DDD (degenerative disc disease), lumbar [M51.36]INVALID FOR* Degeneration of intervertebral disc, site unspe*INVALID FOR*12/10/2016 H/O malignant neoplasm of head and neck [Z85.89]INVALID FOR* Right shoulder pain [M25.511] INVALID FOR* Impingement syndrome of right shoulder [M75.41] INVALID FOR* 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] INVALID FOR*12/10/2016 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] INVALID FOR* Chronic fatigue [R53.82] INVALID FOR* 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)*INVALID FOR* 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*INVALID FOR* Chronic obstructive pulmonary disease (HCC) [J4*INVALID FOR* Dysautonomia orthostatic hypotension syndrome (*INVALID FOR* Chronic bilateral low back pain with left-sided*INVALID FOR* Chronic SI joint pain [M53.3, G89.29] INVALID FOR* 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] INVALID FOR* BPH with obstruction/lower urinary tract sympto*INVALID FOR* Encounter Status:Closed by REBECCA WILKES on 05/10/18 NURSING PROG Observed: 03/31/2018 Status: COMPLETED Source: [place] 9:18 AM [facility] OTHER [place] REPOSITORY HNO ID: [id number] Author: Lillie NavaRn) CHAVEZ Morales Service: Nursing Author Type: Registered Nurse Type: Nursing Progress Note Filed: 03/31/2018 9:35 AM Note Text: Nursing Progress Note Patient Name: Maddi Eaton Patient Location: [facility] Surgery pt up to get dressed unsteady on feet, assisted Getting dressed, pt to stay a little longer at this time, advised friend should stay with pt today and overnight if possible as pt lives alone with a dog. This note was completed by: Lillie Morales RN [id number] pt stood at side of bed, steady, wanting to go home, ride called for, out via w/c, advised pt to go slow with position changes and movements, and to have someone stay with him overnight if possible. PT ED Observed: 03/31/2018 Status: COMPLETED Source: [place] 9:05 AM [facility] OTHER [place] REPOSITORY HNO ID: [id number] Author: Lillie (Rn) CHAVEZ Morales Service: Nursing Author Type: Registered Nurse Type: Patient Education Filed: 03/31/2018 9:06 AM Note Text: POST OP LEARNING RESPONSE INSTRUCTION PROVIDED TO: Patient METHOD OF INSTRUCTION: Written instruction - handouts Verbal instruction PATIENT / FAMILY RESPONSE: Verbalizes understanding of: INFECTION MANAGEMENT-Signs and symptoms of an infection and importance of contacting the physician PAIN MANAGEMENT-Effective strategies to manage pain in addition to pain medication POST-PROCEDURE INSTRUCTIONS-Correct actions to take to reduce post procedure complications PATIENT SAFETY PRINCIPLES SYMPTOM MANAGEMENT-Correct actions to take to manage symptoms associated with his/her disease/illness WORSENING CONDITION-Signs and symptoms of a worsening condition that warrant a call to the physician WOUND CARE-Correct procedure to perform wound care FOLLOW-UP PLAN: Patient instructed to call with any further issues Contact information given. SUPPLEMENTAL MATERIAL: None REFERRAL (RECOMMENDATION): None Electronically Signed By: Lillie Morales RN In Department: [facility] SURGERY XR FLUOROSCOPY Observed: 03/31/2018 Status: F Source: [place] 9:01 AM [facility] OTHER [place] REPOSITORY * * *Final Report* * * DATE OF EXAM: Mar 31 2018 9:01AM MDR [id number] - XR FLUOROSCOPY / PROCEDURE REASON: pain * * * * Physician Interpretation * * * * INDICATION: Pain management TECHNIQUE: 2 submitted fluoroscopic spot images FLUOROSCOPY TIME: 0:16 FINDINGS/ IMPRESSION: 2 submitted fluoroscopic spot images demonstrate a needle with associated contrast involving the right sacroiliac joint. Refer to the procedure note for details regarding this procedure. Truck Despatcher: PSCB Transcribe Date/Time: Mar 31 2018 9:57A Dictated by : DEMETRICE ARIAS MD This examination was interpreted and the report reviewed and electronically signed by: DEMETRICE ARIAS MD on Mar 31 2018 9:57AM EST [id number] [id number] NO Observed: 03/31/2018 Status: COMPLETED Source: [place] 8:55 AM [facility] REPOSITORY HNO ID: [id number] Author: Josue Boucher Service: Pain Management Author Type: Physician Type: Operative Report Filed: 03/31/2018 8:56 AM Note Text: PATIENT NAME: Maddi Eaton SERVICE DATE: 03/31/2018 PROCEDURE NOTE PREOPERATIVE DIAGNOSIS(ES) SI joint pain. SI joint inflammation SI joint dysfunction POSTOPERATIVE DIAGNOSIS(ES): SAME OPERATION: Bilateral SacroiliacJoint Injection under fluoroscopy. ANESTHESIA: Versed 3 mg INDICATIONS: Maddi Eaton presents for SI joint injection. The pain is persistent over the SI joint. The patient denies any changes or new pain complaints since the last encounter. The plan is to proceed with Bilateral SI joint injection. The risks and benefits were discussed with the patient in detail. The patient understands and wishes to proceed. OPERATIVE PROCEDURE: The patient was brought to OR. The patient was positioned prone on the fluoroscopy table. Continuous hemodynamic monitoring was initiated including blood pressure, EKG, and pulse oximetry. IV sedation was administered incrementally to allow the patient to remain comfortable and conversant throughout the procedure. The lumbosacral area was prepped and draped into a sterile field. The inferior pole of the each sacroiliac joint was identified by cephalo-oblique fluoroscopy. The skin overlying both sacroiliac joint was anesthetized using 3 cc of lidocaine 1%. A 22 gauge, 3 1/2 inch spinal needle was slowly advanced through the sacroiliac joint capsule under fluoroscopic guidance. The needle position was confirmed using oblique, AP and lateral fluoroscopic imaging. This was repeated on the contralateral side using the same technique. Negative aspiration was confirmed. 0.5 cc of Omnipaque 300 was injected confirming intra-articular contrast spread in both joints. A combination of 2.5 cc of Bupivacaine 0.25% and 20 mg kenalog was easily injected into each of the joints. No difficulty was encountered. The needles were removed intact and bleeding was nil. The patient tolerated the procedure well. A sterile dressing was applied. The patient was taken to the recovery room in stable condition. EBL: nil Start time: 8:48 AM End time: 8:55 AM I was present the entire time and personally performed the procedure. SIGNATURE: Josue Boucher MD DATE: March 31, 2018 TIME: 8:56 AM HISTORY PHYSICAL Observed: 03/31/2018 Status: COMPLETED Source: [place] 8:37 AM [facility] OTHER [facility] REPOSITORY O ID: [id number] Author: Josue Boucher Service: Pain Management Author Type: Physician Type: HANDP Filed: 03/31/2018 8:37 AM Note Text: HISTORY AND PHYSICAL EXAMINATION PATIENT NAME: Maddi Eaton DATE of SERVICE: 03/31/2018 Maddi Eaton is here for the pain mangement procedure. The patient presents with persistent pain complaints. Maddi Eaton denies any interval changes or new pain complaints or focal neurologic deficits. 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 - Orthostatic hypotension - Osteoarthrosis, unspecified whether generalized or localized, unspecified site osteoarthritis PAST SURGICAL HISTORY Procedure Laterality Date - COLONOSCOP W/ OR W/O BRSH SPEC 06/22/16 Colonoscopy - COLONOSCOPY W/BX 06/09/06 - EGD 06/28/2000 - EGD W/O BRSH SPECIMEN W/BX 06/2000, 06/09/06 - EGD W/O BRSH SPECIMEN W/BX 07/09/11 - EGD W/O OR W/BRUSH/WASH 02/17/16 EGD - PAST SURGICAL HISTORY OF 1959 left inguinal hernia - PAST SURGICAL HISTORY OF 1964 right inguinal hernia - PAST SURGICAL HISTORY OF kidney stones extraction - REMOVAL OF TONSILS,<12 Y/O age 10 Tonsillectomy - 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 Social History Marital status: Spouse name: Marcus Years of education: Number of children: 0 Occupational History Occupation Employer Comment [employer]* Social History Main Topics Smoking status: Former Smoker Packs/day: 3.00 Years: 46.00 Types: Cigarettes Quit date: 06/17/2003 Smokeless tobacco: Former User Types: Chew Quit date: 04/13/2009 Alcohol use: No Drug use: No FAMILY HISTORY Problem Relation Age of Onset - Heart Mother arthritis - unknown [OTHER] Father ALLERGIES Allergen Reactions - Dust - Mold - Morphine Vomiting - Poison Denisse Current Facility-Administered Medications: NaCl 0.9% iv infusion 30 mL/hr INTRAVENOUS CONTINUOUS Physical Exam: Performed in conjunction with observation. The patient is alert and oriented x3. The patient is in no acute distress. Neck: Supple. The range of motion is intact. Lungs: clear CVR: RRR. Extremities: no reported edema or erythema. Examination indicates no changes Impression: Chronic SI joint pain Plan: The informed consent has been obtained. The plan is to proceed with the procedure as planned. SIGNATURE: Josue Boucher MD DATE: March 31, 2018 TIME: 8:37 AM PT ED Observed: 03/31/2018 Status: COMPLETED Source: [place] 8:05 AM [facility] REPOSITORY HNO ID: [id number] Author: Arabella Rashid) CHAVEZ Scherer Service: Nursing Author Type: Registered Nurse Type: Patient Education Filed: 03/31/2018 8:06 AM Note Text: PRE OP LEARNING ASSESSMENT PROCEDURE/SURGERY: PAIN MANAGEMENT: SI joint injection READINESS TO LEARN COGNITIVE ABILITY: Alert and oriented MOTIVATION TO LEARN: Eager Interested FAMILY SUPPORT: High - Very involved in pt care PATIENT LEARNS BEST BY: Individual Instruction Verbal Instruction Multiple Methods FACTORS AFFECTING LEARNING: None PHYSICAL LIMITATIONS AFFECTING LEARNING: None Electronically Signed By: Arabella Scherer RN In Department: [facility] SURGERY PROGRESS Observed: 03/24/2018 Status: COMPLETED Source: [place] 11:45 AM [facility] [place] REPOSITORY HNO ID: [id number] Author: Valerie Cho (Pa) Service: (none) Author Type: Physician Vinyl Hanger Type: Progress Notes Filed: 04/04/2018 11:05 AM Note Text: [facility] PATIENT INFO: Maddi Eaton 77 year old PCP: Anderson Crowley MD Referred by: Anderson Crowley MD Consult: Aconsultation requested by Anderson Crowley MD for an opinion regarding Weak Stream My final recommendations communicated back to the requesting physician by way of shared Medical record. CHIEF COMPLAINT: Weak Stream HPI: This is a 77 year old male, who has had weak urine Stream , which started in 2018, and involves the Urine, Bladder Patient states this mild in severity and mild in quality, and is happening daily Aggravating factors: Does not drink much water at all , Alleviating Factors: No . And the patient denies having Fever, Chills, Rigors, Nausea and Vomiting VOIDING SYMPTOMS: NTF: 0 Times DTF: Q 2 HOURS FOS: Poor Hesitancy: No Straining: No Intermittency: No Urgency: No Frequency: No Dysuria: No Gross Hematuria: No U/A Dipstick Positive Blood - Only No Incomplete Voiding: No Double Voiding: No Post Void Dribbling: No Incontinence: No SEXUAL SYMPTOMS: No Complaints today ALLERGY: ALLERGIES Allergen Reactions - Dust - Mold - Morphine Vomiting - Poison Denisse MEDICATIONS: Current Outpatient Prescriptions: B Complex Vitamins capsule Take 1 capsule by mouth once daily. Disp: Rfl: atenolol (TENORMIN) 25 mg tablet Take 0.5 tablets by mouth once daily. Disp: 45 tablet Rfl: 3 omeprazole (PRILOSEC) 20 mg capsule Take 1 capsule by mouth twice daily. Disp: 180 capsule Rfl: 3 gabapentin (NEURONTIN) 300 mg capsule Take 1 capsule by mouth three times daily for 28 days. Disp: 270 capsule Rfl: 3 midodrine (PROAMITINE) 5 mg tablet Take 1 tablet by mouth three times daily. Disp: 270 tablet Rfl: 3 betamethasone valerate 0.1 % lotion Apply 1 application to affected area twice daily. For scalp itch Disp: 240 mL Rfl: 0 ketoconazole (NIZORAL) 2 % shampoo Shampoo twice a week: leave on for 2-3 minutes Disp: 240 mL Rfl: 2 CALCIUM CARBONATE/VITAMIN D3 (VITAMIN D-3 ORAL) Take by mouth once daily. Disp: Rfl: acetaminophen (TYLENOL) 325 mg tablet Take 2 tablets by mouth every 6 hours as needed for Pain. Disp: Rfl: 0 Ascorbic Acid (VITAMIN C) 1,000 mg ORAL tablet Take 1,000 mg by mouth once daily. Disp: Rfl: Vitamin E 400 unit ORAL Tab Take 1 tablet by mouth once daily. Disp: Rfl: multivitamin ORAL tablet Take 1 tablet by mouth once daily. Disp: Rfl: 0 No current facility-administered medications for this visit. 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 - Orthostatic hypotension - Osteoarthrosis, unspecified whether generalized or localized, unspecified site osteoarthritis Past Surgical History PAST SURGICAL HISTORY Procedure Laterality Date - COLONOSCOP W/ OR W/O BRSH SPEC 06/22/16 Colonoscopy - COLONOSCOPY W/BX 06/09/06 - EGD 06/28/2000 - EGD W/O BRSH SPECIMEN W/BX 06/2000, 06/09/06 - EGD W/O BRSH SPECIMEN W/BX 07/09/11 - EGD W/O OR W/BRUSH/WASH 02/17/16 EGD - PAST SURGICAL HISTORY OF 1959 left inguinal hernia - PAST SURGICAL HISTORY OF 1964 right inguinal hernia - PAST SURGICAL HISTORY OF kidney stones extraction - REMOVAL OF TONSILS,<12 Y/O age 10 Tonsillectomy - 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 Family History FAMILY HISTORY Problem Relation Age of Onset - Heart Mother arthritis - unknown [OTHER] Father REVIEW OF SYSTEMS: General: General: Well developed, well nourished. No acute distress HEENT: Negative for sore throat, difficulty swallowing. Negative for frequent or significant headaches, changes in vision or hearing. Cardiovascular: HTN No history of angina, CHF, [place], cardiac surgery of stents. Respiratory: Negative for current cough, dyspnea. No hx of pneumonia in the past six weeks Gastrointestinal: No history of GERD, PUD, abd pain, difficulty swallowing, GI bleed. Renal: Negative for renal failure and No history of dialysis Musculoskeletal: Negative for joint pain or swelling, back pain or muscle pain. Skin: Negative for lesions, rash and itching. Psychological: No history of psychiatric symptoms or problems. Neurologic: No history of TIA's, stroke, FINISHING TRIMMER tumor, impaired sensorium, hemiplegia, paraplegia or quadriplegia. No neurological symptoms or problems. Hematology/Oncology: No history of bleeding or clotting disorder. Pt is not taking anti-coagulation or platelet medications. No history of hematological symptoms or problems. Endocrine: No history of endocrinological symtoms or problems No history of DM; has not taken steroids w/in past 30 days. Negative for excessive sweating, thirst or hunger PHYSICAL EXAMINATION: General Appearance/ Constitutional: Well developed, well nourished, and in no apparent distress HEENT: Not examined Neck: Lymph Nodes: Not examined Cardiac: Normal Breast: Not examined Pulmonary: Ascultation: Normal Effort: Normal GI: Soft and Non-tender Peripheral Vascular: Not examined Extremities: Cyanosis absent and Edema absent Skin: Normal Neurologic: Grossly non-focal and Alert and oriented (MALE): Penis: Normal without external lesions Testicles: bilaterally and normal Cord/Epididymis: bilaterally and normal Vas Deferens: bilaterally and normal Scrotum: Normal ADDITIONAL DATA REVIEWED: Most recent imaging Most recent labs Results for orders placed or performed in visit on 03/24/18 UA DIP, URINE (POC) Result Value Ref Range GLUCOSE UA (POCT) Negative Negative mg/dL BILIRUBIN UA (POCT) Negative Negative KETONE UA (POCT) Negative Negative mg/dL SPECIFIC GRAVITY UA (POCT) 1.015 1.005 - 1.030 HEMOGLOBIN/BLOOD UA (POCT) Negative Negative PH UA (POCT) 6.0 4.5 - 8.0 PROTEIN UA (POCT) Negative Negative mg/dL UROBILINOGEN UA (POCT) 0.2 Normal E.U./dL NITRITE UA (POCT) Negative Negative LEUKOCYTES UA (POCT) Negative Negative COLOR UA (POCT) Yellow CLARITY UA (POCT) Clear UROLOGICAL DATA: Post Void Residual, Ultrasound:0 ml IMPRESSION / PLAN: > History of weak stream and no other urinary complaints > PVR - 0 ml > No prostate medications > normal sCr > no NTF > Patient admits that he does not drink water or much fluid at all And that he can go 6-8 hours without urinating and this is not new or a problem for him So discussed no treatment unless symptoms become problematic I spent approximately 40 minutes in this visit, with more than 50% of the time devoted to patient discussion, counseling, review of records and/or coordination of care. SARAH Gonzalez, MT, PURNIMA CNOV Observed: 03/24/2018 Status: COMPLETED Source: [place] 11:00 AM [facility] REPOSITORY Office Visit (UROLWS) MADDI EATON ([id number]) 1940 M Date Time Provider Department 03/24/18 11:00 AM VALERIE CHO) UROLWS During your visit today, we recorded the following information about you: Pulse Blood pressure Weight Height 56/minute 110/70 69.9 kg 1.867 m TRINITY Dela Cruz 04/04/2018 11:05 AM Signed [facility] PATIENT INFO: Maddi Eaton 77 year old PCP: Anderson Crowley MD Referred by: Anderson Crowley MD Consult: Aconsultation requested by Anderson Crowley MD for an opinion regarding Weak Stream My final recommendations communicated back to the requesting physician by way of shared Medical record. CHIEF COMPLAINT: Weak Stream HPI: This is a 77 year old male, who has had weak urine Stream , which started in 2018, and involves the Urine, Bladder Patient states this mild in severity and mild in quality, and is happening daily Aggravating factors: Does not drink much water at all , Alleviating Factors: No . And the patient denies having Fever, Chills, Rigors, Nausea and Vomiting VOIDING SYMPTOMS: NTF: 0 Times DTF: Q 2 HOURS FOS: Poor Hesitancy: No Straining: No Intermittency: No Urgency: No Frequency: No Dysuria: No Gross Hematuria: No U/A Dipstick Positive Blood - Only No Incomplete Voiding: No Double Voiding: No Post Void Dribbling: No Incontinence: No SEXUAL SYMPTOMS: No Complaints today ALLERGY: ALLERGIES Allergen Reactions - Dust - Mold - Morphine Vomiting - Poison Denisse MEDICATIONS: Current Outpatient Prescriptions: B Complex Vitamins capsule Take 1 capsule by mouth once daily. Disp: Rfl: atenolol (TENORMIN) 25 mg tablet Take 0.5 tablets by mouth once daily. Disp: 45 tablet Rfl: 3 omeprazole (PRILOSEC) 20 mg capsule Take 1 capsule by mouth twice daily. Disp: 180 capsule Rfl: 3 gabapentin (NEURONTIN) 300 mg capsule Take 1 capsule by mouth three times daily for 28 days. Disp: 270 capsule Rfl: 3 midodrine (PROAMITINE) 5 mg tablet Take 1 tablet by mouth three times daily. Disp: 270 tablet Rfl: 3 betamethasone valerate 0.1 % lotion Apply 1 application to affected area twice daily. For scalp itch Disp: 240 mL Rfl: 0 ketoconazole (NIZORAL) 2 % shampoo Shampoo twice a week: leave on for 2-3 minutes Disp: 240 mL Rfl: 2 CALCIUM CARBONATE/VITAMIN D3 (VITAMIN D-3 ORAL) Take by mouth once daily. Disp: Rfl: acetaminophen (TYLENOL) 325 mg tablet Take 2 tablets by mouth every 6 hours as needed for Pain. Disp: Rfl: 0 Ascorbic Acid (VITAMIN C) 1,000 mg ORAL tablet Take 1,000 mg by mouth once daily. Disp: Rfl: Vitamin E 400 unit ORAL Tab Take 1 tablet by mouth once daily. Disp: Rfl: multivitamin ORAL tablet Take 1 tablet by mouth once daily. Disp: Rfl: 0 No current facility-administered medications for this visit. 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 - Orthostatic hypotension - Osteoarthrosis, unspecified whether generalized or localized, unspecified site osteoarthritis Past Surgical History PAST SURGICAL HISTORY Procedure Laterality Date - COLONOSCOP W/ OR W/O BRSH SPEC 06/22/16 Colonoscopy - COLONOSCOPY W/BX 06/09/06 - EGD 06/28/2000 - EGD W/O BRSH SPECIMEN W/BX 06/2000, 06/09/06 - EGD W/O BRSH SPECIMEN W/BX 07/09/11 - EGD W/O OR W/BRUSH/WASH 02/17/16 EGD - PAST SURGICAL HISTORY OF 1959 left inguinal hernia - PAST SURGICAL HISTORY OF 1964 right inguinal hernia - PAST SURGICAL HISTORY OF kidney stones extraction - REMOVAL OF TONSILS,<14 Y/O age 10 Tonsillectomy - 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 Family History FAMILY HISTORY Problem Relation Age of Onset - Heart Mother arthritis - unknown [OTHER] Father REVIEW OF SYSTEMS: General: General: Well developed, well nourished. No acute distress HEENT: Negative for sore throat, difficulty swallowing. Negative for frequent or significant headaches, changes in vision or hearing. Cardiovascular: HTN No history of angina, CHF, [place], cardiac surgery of stents. Respiratory: Negative for current cough, dyspnea. No hx of pneumonia in the past six weeks Gastrointestinal: No history of GERD, PUD, abd pain, difficulty swallowing, GI bleed. Renal: Negative for renal failure and No history of dialysis Musculoskeletal: Negative for joint pain or swelling, back pain or muscle pain. Skin: Negative for lesions, rash and itching. Psychological: No history of psychiatric symptoms or problems. Neurologic: No history of TIA's, stroke, FINISHING TRIMMER tumor, impaired sensorium, hemiplegia, paraplegia or quadriplegia. No neurological symptoms or problems. Hematology/Oncology: No history of bleeding or clotting disorder. Pt is not taking anti-coagulation or platelet medications. No history of hematological symptoms or problems. Endocrine: No history of endocrinological symtoms or problems No history of DM; has not taken steroids w/in past 30 days. Negative for excessive sweating, thirst or hunger PHYSICAL EXAMINATION: General Appearance/ Constitutional: Well developed, well nourished, and in no apparent distress HEENT: Not examined Neck: Lymph Nodes: Not examined Cardiac: Normal Breast: Not examined Pulmonary: Ascultation: Normal Effort: Normal GI: Soft and Non-tender Peripheral Vascular: Not examined Extremities: Cyanosis absent and Edema absent Skin: Normal Neurologic: Grossly non-focal and Alert and oriented (MALE): Penis: Normal without external lesions Testicles: bilaterally and normal Cord/Epididymis: bilaterally and normal Vas Deferens: bilaterally and normal Scrotum: Normal ADDITIONAL DATA REVIEWED: Most recent imaging Most recent labs Results for orders placed or performed in visit on 03/24/18 UA DIP, URINE (POC) Result Value Ref Range GLUCOSE UA (POCT) Negative Negative mg/dL BILIRUBIN UA (POCT) Negative Negative KETONE UA (POCT) Negative Negative mg/dL SPECIFIC GRAVITY UA (POCT) 1.015 1.005 - 1.030 HEMOGLOBIN/BLOOD UA (POCT) Negative Negative PH UA (POCT) 6.0 4.5 - 8.0 PROTEIN UA (POCT) Negative Negative mg/dL UROBILINOGEN UA (POCT) 0.2 Normal E.U./dL NITRITE UA (POCT) Negative Negative LEUKOCYTES UA (POCT) Negative Negative COLOR UA (POCT) Yellow CLARITY UA (POCT) Clear UROLOGICAL DATA: Post Void Residual, Ultrasound:0 ml IMPRESSION / PLAN: > History of weak stream and no other urinary complaints > PVR - 0 ml > No prostate medications > normal sCr > no NTF > Patient admits that he does not drink water or much fluid at all And that he can go 6-8 hours without urinating and this is not new or a problem for him So discussed no treatment unless symptoms become problematic I spent approximately 40 minutes in this visit, with more than 50% of the time devoted to patient discussion, counseling, review of records and/or coordination of care. Valerie Cho, SARAH, MT, PA-C Referring Provider: ANDERSON CROWLEY [[id number]] Allergies As of Date: 03/24/2018 Noted Allergy Reaction DUST 06/02/2005 MOLD 06/02/2005 MORPHINE 08/20/2008 11 - Vomiting POISON DENISSE 06/02/2005 Date Reviewed: 03/24/2018 Reviewed by: Emily Stern Ma - Fully Assessed Reason for Visit: New Patient [172] BPH [1368] Primary Visit Diagnosis:Slow urinary stream [R39.198] Other Visit Diagnosis:BPH with obstruction/lower urinary tract symptoms [N40.1, N13.8] Order(s):UA DIP, URINE (POC) [[id number]] Order #: [id number]. #:[id number] POST-VOID RESID URINE [[id number]] Order #: [id number] Prescriptions as of 03/24/2018 Sig: VITAMIN B COMPLEX CAPSULE Take 1 capsule by mouth once * ATENOLOL 25 MG TABLET Take 0.5 tablets by mouth onc* OMEPRAZOLE 20 MG CAPSULE,CIRO* Take 1 capsule by mouth twice* GABAPENTIN 300 MG CAPSULE Take 1 capsule by mouth three* MIDODRINE 5 MG TABLET Take 1 tablet by mouth three * BETAMETHASONE VALERATE 0.1 % * Apply 1 application to affect* KETOCONAZOLE 2 % SHAMPOO Shampoo twice a week: leave o* VITAMIN D-3 ORAL Take by mouth once daily. ACETAMINOPHEN 325 MG TABLET Take 2 tablets by mouth every* * ASCORBIC ACID (VITAMIN C) 1,0* Take 1,000 mg by mouth once d* * VITAMIN E 400 UNIT TABLET Take 1 tablet by mouth once d* * MULTIVITAMIN TABLET Take 1 tablet by mouth once d* Problem List As Of Date 03/24/2018 Noted Resolved Unspecified chest pain [R07.9] INVALID FOR*07/09/2010 CALCULUS OF KIDNEY [N20.0] INVALID FOR* Essential hypertension [I10] INVALID FOR* More... 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 Acute gastritis without mention of hemorrhage [*INVALID FOR*07/09/2010 Irritable bowel syndrome [K58.9] INVALID FOR*07/09/2010 Unspecified disorder of prostate [N42.9] INVALID FOR* More... Esophageal reflux [K21.9] INVALID FOR* More... 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 Peripheral neuropathy, secondary to drugs or ch*INVALID FOR*12/10/2016 Diaphragmatic hernia without mention of obstruc*INVALID FOR* Acute gastritis without mention of hemorrhage [*INVALID FOR* Dysphagia [R13.10] INVALID FOR* Degeneration of cervical intervertebral disc [M*INVALID FOR* Cervicalgia [M54.2] INVALID FOR* DDD (degenerative disc disease), lumbar [M51.36]INVALID FOR* Degeneration of intervertebral disc, site unspe*INVALID FOR*12/10/2016 H/O malignant neoplasm of head and neck [Z85.89]INVALID FOR* Right shoulder pain [M25.511] INVALID FOR* Impingement syndrome of right shoulder [M75.41] INVALID FOR* 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] INVALID FOR*12/10/2016 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] INVALID FOR* Chronic fatigue [R53.82] INVALID FOR* 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 -> 1 TIMES IN PAST MONTH NEED TO URINATE AGAIN WITHIN 2 HRS OF LAST EMPTY? -> 2 TIMES IN PAST MONTH YOU HAVE STOPPED AND STARTED URINE FLOW? -> 3 TIMES IN THE PAST MONTH YOU FOUND IT DIFFICULT TO POSTPONE URINATING? -> 0 TIMES IN THE PAST MONTH YOU HAVE HAD A WEAK URINARY STREAM? -> 3 TIMES IN PAST MONTH YOU HAVE HAD TO PUSH OR STRAIN TO URINATE? -> 0 TIMES IN PAST MONTH YOU GET UP TO URINATE FROM SLEEP UNTIL AWAKE? -> 0 HOW WOULD YOU FEEL IF YOU HAD TO LIVE WITH YOUR URINARY CONDITION IT IS NOW? * WHAT IT THE TOTAL AUA SCORE? -> 12 Encounter Status:Closed by VALERIE CHO PA-C on 04/04/18 PROGRESS Observed: 03/24/2018 Status: COMPLETED Source: [place] 9:39 AM [facility] REPOSITORY HNO ID: [id number] Author: Polly Cartagena Service: (none) Author Type: Nurse Practitioner Type: Progress Notes Filed: 03/24/2018 10:00 AM Note Text: Chief Complaint Patient presents with: Established Patient HPI: Maddi Eaton is a 77 year old male who presents here today for follow up laryngeal cancer. Per Dr. 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 ? Completed concurrent cisplatin/RT 05/22. Received all 3 cycles cisplatin, but dose reduced to 75 mg/m2 and administered daily x3 for last cycle due to increase in serum Cr. ? Underwent direct laryngoscopy 09/18/09. No evidence of residual disease. ? No complaints.? ? Appetite:it's normal Energy level:not much-my brain wants to do it but my body doesn't. Denies fevers or recent illness. 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 takes neurontin Skin:denies rashes/lesions Heme:denies bleeding The ROS is otherwise negative. Past medical history, appointments, medications, allergies reviewed. No changes. EXAM: BP 131/70 Pulse 60 Temp 36.7 ?C (98 ?F) Wt 70.1 kg (154 lb 8 oz) BMI 20.38 kg/m? APPEARANCE Well/thin appearing, alert, in no acute distress, well-hydrated, well nourished. MOUTH/THROAT no obvious lesion HEART RRR with normal S1 and S2, no murmurs LUNG clear to auscultation LYMPH NODES No cervical lymphadenopathy, No supraclavicular lymphadenopathy and No axillary lymphadenopathy. ABDOMEN bowel sounds normoactive, no bruits, soft, non-tender, non-distended, without organomegaly or palpable masses EXTREMITIES No edema NEURO Awake, alert and oriented x 3, Normal gait and No involuntary motions. SKIN Skin color, texture, turgor normal, no suspicious rashes or lesions RADIOLOGY: CXR 03/23/18: IMPRESSION: Stable exam without acute findings. ASSESSMENT/PLAN: 1. 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 - No concerning findings on exam. - Reviewed CXR with pt. - Will be 9 years our from treatment in May. - Followed by ENT yearly. - Needs appt. with Dr. Moya in Jun. at [facility]. - Follow up in one year with CXR. - Pt. aware to call office with any questions/concerns. The patient indicates understanding of these issues and agrees with the plan. Polly Cartagena APRN.TIRE VULCANIZER CNOVSP Observed: 03/24/2018 Status: COMPLETED Source: [place] 9:00 AM [facility] REPOSITORY Visit (SP) Office (HEMAWS) MADDI EATON ([id number]) 1940 M Date Time Provider Department 03/24/18 9:00 AM POLLY CARTAGENA (MARLA) DANIELLE During your visit today, we recorded the following information about you: Temperature Pulse Blood pressure Weight 98 degrees 60/minute 131/70 70.1 kg Felecia Ross LPN, SUJATHA 03/24/2018 9:39 AM Signed Est pt, discuss recent chest x-ray SUJATHA Choi APRN.MARLA 03/24/2018 10:00 AM Signed Chief Complaint Patient presents with: Established Patient HPI: Maddi Eaton is a 77 year old male who presents here today for follow up laryngeal cancer. Per Dr. 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 ? Completed concurrent cisplatin/RT 05/22. Received all 3 cycles cisplatin, but dose reduced to 75 mg/m2 and administered daily x3 for last cycle due to increase in serum Cr. ? Underwent direct laryngoscopy 09/18/09. No evidence of residual disease. ? No complaints.? ? Appetite:it's normal Energy level:not much-my brain wants to do it but my body doesn't. Denies fevers or recent illness. 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 takes neurontin Skin:denies rashes/lesions Heme:denies bleeding The ROS is otherwise negative. Past medical history, appointments, medications, allergies reviewed. No changes. EXAM: BP 131/70 Pulse 60 Temp 36.7 ?C (98 ?F) Wt 70.1 kg (154 lb 8 oz) BMI 20.38 kg/m? APPEARANCE Well/thin appearing, alert, in no acute distress, well-hydrated, well nourished. MOUTH/THROAT no obvious lesion HEART RRR with normal S1 and S2, no murmurs LUNG clear to auscultation LYMPH NODES No cervical lymphadenopathy, No supraclavicular lymphadenopathy and No axillary lymphadenopathy. ABDOMEN bowel sounds normoactive, no bruits, soft, non-tender, non-distended, without organomegaly or palpable masses EXTREMITIES No edema NEURO Awake, alert and oriented x 3, Normal gait and No involuntary motions. SKIN Skin color, texture, turgor normal, no suspicious rashes or lesions RADIOLOGY: CXR 03/23/18: IMPRESSION: Stable exam without acute findings. ASSESSMENT/PLAN: 1. 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 - No concerning findings on exam. - Reviewed CXR with pt. - Will be 9 years our from treatment in May. - Followed by ENT yearly. - Needs appt. with Dr[facility] Moya in Jun[facility] - Follow up in one year with CXR. - Pt. aware to call office with any questions/concerns. The patient indicates understanding of these issues and agrees with the plan. Polly Cartagena APRN.TIRE VULCANIZER Referring Provider: JOSUE HARTMANN [[id number]] Allergies As of Date: 03/24/2018 Noted Allergy Reaction DUST 06/02/2005 MOLD 06/02/2005 MORPHINE 08/20/2008 11 - Vomiting POISON DENISSE 06/02/2005 Date Reviewed: 03/24/2018 Reviewed by: Polly ([employer]) Mitzi - Fully Assessed Reason for Visit: Established Patient [175] Primary Visit Diagnosis: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] Follow-up and Disposition History Recorded Prescriptions as of 03/24/2018 Sig: VITAMIN B COMPLEX CAPSULE Take 1 capsule by mouth once * ATENOLOL 25 MG TABLET Take 0.5 tablets by mouth onc* OMEPRAZOLE 20 MG CAPSULE,CIRO* Take 1 capsule by mouth twice* GABAPENTIN 300 MG CAPSULE Take 1 capsule by mouth three* MIDODRINE 5 MG TABLET Take 1 tablet by mouth three * BETAMETHASONE VALERATE 0.1 % * Apply 1 application to affect* KETOCONAZOLE 2 % SHAMPOO Shampoo twice a week: leave o* VITAMIN D-3 ORAL Take by mouth once daily. ACETAMINOPHEN 325 MG TABLET Take 2 tablets by mouth every* * ASCORBIC ACID (VITAMIN C) 1,0* Take 1,000 mg by mouth once d* * VITAMIN E 400 UNIT TABLET Take 1 tablet by mouth once d* * MULTIVITAMIN TABLET Take 1 tablet by mouth once d* Medication notes this encounter VITAMIN B-12 ORAL >> Felecia Antoine SUJATHA Ross, SUJATHA 03/24/2018 9:21 AM >> FELECIA ROSS Mar 24, 2018 9:21 AM discontinued Problem List As Of Date 03/24/2018 Noted Resolved Unspecified chest pain [R07.9] INVALID FOR*07/09/2010 CALCULUS OF KIDNEY [N20.0] INVALID FOR* Essential hypertension [I10] INVALID FOR* More... 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 Acute gastritis without mention of hemorrhage [*INVALID FOR*07/09/2010 Irritable bowel syndrome [K58.9] INVALID FOR*07/09/2010 Unspecified disorder of prostate [N42.9] INVALID FOR* More... Esophageal reflux [K21.9] INVALID FOR* More... MYALGIA AND MYOSITIS NOS [[id number]] INVALID FOR* Pain in joint, multiple sites [M25.50] INVALID FOR*07/09/2010 RENAL AND URETERAL DIS NOS [N28.9] INVALID FOR* THYROID NODULE [E04.1] INVALID FOR*07/09/2010 ENLARGEMENT LYMPH NODES NECK [R59.9] INVALID FOR*07/09/2010 MALIG NEOPLASM SUPRAGLOTTIS - SQUAMOUS CELL CA *INVALID FOR*03/26/2014 More... Peripheral neuropathy, secondary to drugs or ch*INVALID FOR*12/10/2016 Diaphragmatic hernia without mention of obstruc*INVALID FOR* Acute gastritis without mention of hemorrhage [*INVALID FOR* Dysphagia [R13.10] INVALID FOR* Degeneration of cervical intervertebral disc [M*INVALID FOR* Cervicalgia [M54.2] INVALID FOR* DDD (degenerative disc disease), lumbar [M51.36]INVALID FOR* Degeneration of intervertebral disc, site unspe*INVALID FOR*12/10/2016 H/O malignant neoplasm of head and neck [Z85.89]INVALID FOR* Right shoulder pain [M25.511] INVALID FOR* Impingement syndrome of right shoulder [M75.41] INVALID FOR* 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] INVALID FOR*12/10/2016 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] INVALID FOR* Chronic fatigue [R53.82] INVALID FOR* 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)*INVALID FOR* 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*INVALID FOR* Chronic obstructive pulmonary disease (HCC) [J4*INVALID FOR* Dysautonomia orthostatic hypotension syndrome (*INVALID FOR* Chronic bilateral low back pain with left-sided*INVALID FOR* Chronic SI joint pain [M53.3, G89.29] INVALID FOR* 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] INVALID FOR* Visit Notes: >> Felecia Antoine (Sujatha) SUJATHA Ross Iliana Mar 24, 2018 9:20 AM Status: Signed Est pt, discuss recent chest x-ray Felecia Ross LPN Encounter Status:Closed by POLLY CARTAGENA CNP on 03/24/18 XR CHEST 2V FRONTAL/LAT Observed: 03/23/2018 Status: F Source: [place] 12:26 PM [facility] REPOSITORY * * *Final Report* * * DATE OF EXAM: Mar 23 2018 12:26PM [id number] [id number] - XR CHEST 2V FRONTAL/LAT / PROCEDURE REASON: Personal history of malignant neoplasm of larynx * * * * Physician Interpretation * * * * EXAMINATION: CHEST RADIOGRAPH (2 VIEW FRONTAL and LATERAL) Clinical History: Personal history of malignant neoplasm of larynx MQ: [id number]_5 Comparison: Chest x-ray on 03/24/2017 RESULT: Lines, tubes, and devices: None. Lungs and pleura: No consolidation. No lung mass. No pleural effusion. Cardiomediastinal silhouette: Stable cardiac silhouette with tortuosity of the thoracic aorta. Other: None. IMPRESSION: Stable exam without acute findings. Truck Despatcher: GARCIA Transcribe Date/Time: Mar 23 2018 12:28P Dictated by : BENITO LAO MD This examination was interpreted and the report reviewed and electronically signed by: BENITO LAO MD on Mar 23 2018 12:29PM EST [id number] Observed: 03/23/2018 Status: COMPLETED Source: [place] 11:56 AM [facility] REPOSITORY HNO ID: [id number] Author: IZA Bee (Ct) Service: (none) Author Type: Clinical Tracer Bullet Section Supervisor Type: Progress Notes Filed: 03/23/2018 11:57 AM Note Text: Radiology Service Progress Note PATIENT NAME: Maddi Eaton DATE OF SERVICE: March 23, 2018 TIME: 11:56 AM PATIENT IDENTITY VERIFICATION COMPLETED USING TWO (2) METHODS: Patient confirmed name verbally and Date of . PATIENT GENDER DATA: Male PATIENT RELEVANT IMPLANT DATA REVIEWED: Not Applicable RADIOLOGY DEPARTMENT: General X-ray: Exam(s) Completed: Chest X-Ray PERIPHERAL IV DATA: Not applicable SIGNED BY: IZA Bee March 23, 2018 11:56 AM CNOV Observed: 03/14/2018 Status: COMPLETED Source: [place] 1:10 PM [facility] REPOSITORY Office Visit (PNMDNA) BARTOLOMADDI NOLAND ([id number]) 1940 M Date Time Provider Department 03/14/18 1:10 PM JOSUE BOUCHER PNAMNA During your visit today, we recorded the following information about you: Pulse Weight 73/minute 69.9 kg Josue Boucher MD 03/14/2018 2:42 PM Signed [facility] Pain Management Department Date: March 14, 2018 - 1:06 PM Maddi Eaton is seen in consultation requested by Dr. Anderson Crowley for an opinion regarding chronic lower back pain. My final recommendations will be communicated back to the requesting physician by way of shared medical record or via US mail. Chief Complaint: lower back pain SUBJECTIVE: Maddi Eaton, is a 77 year old year old with no significant past medical history, who presents with lower back pain. The pain started 20 years ago, following with no precipitating event. and is stable. His pain is located in the bilateral lumbar region and does not radiate to LE. The pain is described as aching, burning, sharp, soreness and cramping. The pain intensity is rated 6. The pain is exacerbated by standing, walking, arising from a sitting position, lifting, twisting, driving/riding in car, mornings and stairs and relieved by sitting, resting, lying on the side with flexed knees, application of heat and medications - Tylenol. Symptoms interfere with physical activity, walking, household cleaning, reaching for shelves and lifting. The predominant pain is mostly lower back to hips. Obtained by Roselia Robbins MA by interview I have reviewed, confirmed and edited the preliminary information with the patient:. In addition the patient reports no additional concerns. Prior pain treatment has included physical therapy with substantial relief, Dates: December 2016 to February 2017. He had relief from the following interventions: None. ALLERGIES Allergen Reactions - Dust - Mold - Morphine Vomiting - Poison Denisse Current Medications: Pain medications reviewed and reconciled in the medication list: Yes. Current Outpatient Prescriptions: atenolol (TENORMIN) 25 mg tablet Take 0.5 tablets by mouth once daily. omeprazole (PRILOSEC) 20 mg capsule Take 1 capsule by mouth twice daily. gabapentin (NEURONTIN) 300 mg capsule Take 1 capsule by mouth three times daily for 28 days. midodrine (PROAMITINE) 5 mg tablet Take 1 tablet by mouth three times daily. betamethasone valerate 0.1 % lotion Apply 1 application to affected area twice daily. For scalp itch ketoconazole (NIZORAL) 2 % shampoo Shampoo twice a week: leave on for 2-3 minutes CYANOCOBALAMIN, VITAMIN B-12, (VITAMIN B-12 ORAL) Take by mouth once daily. CALCIUM CARBONATE/VITAMIN D3 (VITAMIN D-3 ORAL) Take by mouth once daily. acetaminophen (TYLENOL) 325 mg tablet Take 2 tablets by mouth every 6 hours as needed for Pain. Ascorbic Acid (VITAMIN C) 1,000 mg ORAL tablet Take 1,000 mg by mouth once daily. Vitamin E 400 unit ORAL Tab Take 1 tablet by mouth once daily. multivitamin ORAL tablet Take 1 tablet by mouth once daily. No current facility-administered medications for this visit. PAST MEDICAL HISTORY Diagnosis Date - Benign neoplasm of colon - Calculus of ureter - Diaphragmatic hernia without mention of obstruction or gangrene - Dysphagia, unspecified(107.54) - Esophageal reflux - Essential hypertension, benign - Malignant neoplasm of supraglottis (HCC) 03/28/2009 - Orthostatic hypotension - Osteoarthrosis, unspecified whether generalized or localized, unspecified site osteoarthritis PAST SURGICAL HISTORY Procedure Laterality Date - COLONOSCOP W/ OR W/O BRSH SPEC 06/22/16 Colonoscopy - COLONOSCOPY W/BX 06/09/06 - EGD 06/28/2000 - EGD W/O BRSH SPECIMEN W/BX 06/2000, 06/09/06 - EGD W/O BRSH SPECIMEN W/BX 07/09/11 - EGD W/O OR W/BRUSH/WASH 02/17/16 EGD - PAST SURGICAL HISTORY OF 1959 left inguinal hernia - PAST SURGICAL HISTORY OF 1964 right inguinal hernia - PAST SURGICAL HISTORY OF kidney stones extraction - REMOVAL OF TONSILS,<14 Y/O age 10 Tonsillectomy - 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 FAMILY HISTORY Problem Relation Age of Onset - Heart Mother arthritis - unknown [Other] [OTHER] Father Social History: Alcohol Use: No Tobacco Use: 3 packs/day, for 46 years. Quit 06/17/2003. Types: Cigarettes, Chew Drug Use: No Employer And Job Title: [employer] (No job title specified) Years Of Education Completed: Not specified Marital Status: with no children REVIEW OF SYSTEMS: Constitutional: (-) Fever (-) Night Sweats (-) Weight Gain (-) Weight Loss (+) Fatigue Cardiovascular: (-) Chest Pain (-) Palpitations (+) Lightheadedness (-) Swelling of Ankles (-) Hx Heart Surgery Respiratory: (+) Shortness of Breath (+) Cough (+) Wheezing (+) Snoring Gastrointestinal: (-) Incontinence (-) Abdominal Pain (-) Diarrhea (-) Constipation (-) Nausea/Vomiting (+) Heart Burn Endocrine: (-) Thyroid Disorder (-) Diabetes Hematologic: (-) Prolonged Bleeding (+) Easy Bruising Genitourinary: (-) Incontinence (-) Frequency (-) Urinary Urgency Skin: (-) Rashes (-) Itching (-) Other Lesions Neurologic: (-) Headache (-) Double Vision (-) Confusion (-) Paralysis (-) Vertigo (-) Syncope Psychiatric: (-) Depression (-) Anxiety (-) Delusions (-) Hallucinations (-) Suicidal Thoughts Roselia Robbins MA OARRS Report reviewed: Yes Narcotic Agreement reviewed and signed?: N/A Baseline Urine Toxicology obtained: N/A Urine Panel: No results found for: UQCANN, UQBNZL, VWV0XLD, UQAMPH, UQMAMP, UQBUPRE, UQNORBUP, UQMTHD, UQEDDP, UQTRAM, UQDTRM, UQFNTL, UQNFTL, UQCODE, UQMORP, UQDCDN, UQHCOD, UQOXYC, UQHMOR, UQOXYM, UQCREA, UQPH, UQSPGR, UQOXID, UQSPQ The pain panel was N/A I have reviewed, confirmed and edited the preliminary information with the patient: OBJECTIVE: PHYSICAL EXAMINATION: Pulse 73 Wt 154 lb (69.9kg) SpO2 93% General: Well-appearing, alert, in no acute distress Skin: Skin color, texture, turgor normal, no rashes or lesions HEENT: Normocephalic, atraumatic, sclera nonicteric CV: Regular rate and rhythm -Pulses: +2 and equal bilaterally Resp: Breathing unlabored, normal chest excursion. GI: Abdomen soft, not distended nontender Lymphatic:No lymphadema Musculoskeletal Neck: Posture and spinal curves are normal, Supple, normal range of motion, non-tender Back: Posture and spinal curves are abnormal; flexed forward posture, normal range of motion without reproducible pain, mild pain to palpation of the lumbar spine at L5-S1 level, straight leg raising test is negative bilaterally. Negative facet loading. Bilateral PSIS tenderness. Positive sacral thrust. Positive Gaenslens. Extremities: Normal without deformity, edema or skin discoloration Neurological: Mental Status: Alert and oriented x3, Appropriate to topic Motor Strength:Motor strength and tone are 5/5 throughout Sensory:Sensation was intact to light touch all throughout DTR:Reflexes decreased bilateral LE. Gait: antalgic Medical record and diagnostic tests reviewed for today's visit: The [facility] EMR was reviewed during the visit IMAGING STUDIES: No new imaging studies were reviewed during this office visit. Xray of lumbar spine reviewed. 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 Discussed conservative options and focus on improvement of function. Discussed the rationale behind interventional approach and how it can facilitate improvement of pain but also diagnostic information that procedures provide. jail use of any opioid pain medication is discouraged in chronic benign pain PLAN: 1. Recommend a trial of bilateral SI joint injection. 2. no new meds started. 3. Continue with physical therapy. 4. Counseled patient regarding the importance of activity modification. 5. Follow up:3 months for an office visit. The above plan and management options were discussed with patient. The patient is in agreement with the above and verbalized understanding. I have discussed and confirmed the above treatment plan with the patient. and I have reviewed the nurses notes and I am aware of the family/social history. Josue Boucher MD March 14, 2018 cc: Anderson Crowley MD [id number] [facility] [id number] Results of consultation to be transmitted via electronic medical record for those providers who practice within [facility] or with access to [employer] via MD Connect, or via letter. Referring Provider: ANDERSON CROWLEY [[id number]] Allergies As of Date: 03/14/2018 Noted Allergy Reaction DUST 06/02/2005 MOLD 06/02/2005 MORPHINE 08/20/2008 11 - Vomiting POISON DENISSE 06/02/2005 Date Reviewed: 03/14/2018 Reviewed by: Roselia Robbins MA - Fully Assessed Reason for Visit: New Patient [172] Low Back Pain [126] Primary Visit Diagnosis: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] Other Visit Diagnoses:Chronic SI joint pain [M53.3, G89.29] 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.36] Order(s):INJECTION PROCEDURE FOR SACROILIAC [[id number]] Order #: [id number] FUTURE Prescriptions as of 03/14/2018 Sig: ATENOLOL 25 MG TABLET Take 0.5 tablets by mouth onc* OMEPRAZOLE 20 MG CAPSULE,CIRO* Take 1 capsule by mouth twice* GABAPENTIN 300 MG CAPSULE Take 1 capsule by mouth three* MIDODRINE 5 MG TABLET Take 1 tablet by mouth three * BETAMETHASONE VALERATE 0.1 % * Apply 1 application to affect* KETOCONAZOLE 2 % SHAMPOO Shampoo twice a week: leave o* VITAMIN B-12 ORAL Take by mouth once daily. VITAMIN D-3 ORAL Take by mouth once daily. ACETAMINOPHEN 325 MG TABLET Take 2 tablets by mouth every* * ASCORBIC ACID (VITAMIN C) 1,0* Take 1,000 mg by mouth once d* * VITAMIN E 400 UNIT TABLET Take 1 tablet by mouth once d* * MULTIVITAMIN TABLET Take 1 tablet by mouth once d* Problem List As Of Date 03/14/2018 Noted Resolved Unspecified chest pain [R07.9] INVALID FOR*07/09/2010 CALCULUS OF KIDNEY [N20.0] INVALID FOR* Essential hypertension [I10] INVALID FOR* More... 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 Acute gastritis without mention of hemorrhage [*INVALID FOR*07/09/2010 Irritable bowel syndrome [K58.9] INVALID FOR*07/09/2010 Unspecified disorder of prostate [N42.9] INVALID FOR* More... Esophageal reflux [K21.9] INVALID FOR* More... MYALGIA AND MYOSITIS NOS [[id number]] INVALID FOR* Pain in joint, multiple sites [M25.50] INVALID FOR*07/09/2010 RENAL AND URETERAL DIS NOS [N28.9] INVALID FOR* THYROID NODULE [E04.1] INVALID FOR*07/09/2010 ENLARGEMENT LYMPH NODES NECK [R59.9] INVALID FOR*07/09/2010 MALIG NEOPLASM SUPRAGLOTTIS - SQUAMOUS CELL CA *INVALID FOR*03/26/2014 More... Peripheral neuropathy, secondary to drugs or ch*INVALID FOR*12/10/2016 Diaphragmatic hernia without mention of obstruc*INVALID FOR* Acute gastritis without mention of hemorrhage [*INVALID FOR* Dysphagia [R13.10] INVALID FOR* Degeneration of cervical intervertebral disc [M*INVALID FOR* Cervicalgia [M54.2] INVALID FOR* DDD (degenerative disc disease), lumbar [M51.36]INVALID FOR* Degeneration of intervertebral disc, site unspe*INVALID FOR*12/10/2016 H/O malignant neoplasm of head and neck [Z85.89]INVALID FOR* Right shoulder pain [M25.511] INVALID FOR* Impingement syndrome of right shoulder [M75.41] INVALID FOR* 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] INVALID FOR*12/10/2016 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] INVALID FOR* Chronic fatigue [R53.82] INVALID FOR* 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)*INVALID FOR* 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*INVALID FOR* Chronic obstructive pulmonary disease (HCC) [J4*INVALID FOR* Dysautonomia orthostatic hypotension syndrome (*INVALID FOR* Chronic bilateral low back pain with left-sided*INVALID FOR* Chronic SI joint pain [M53.3, G89.29] INVALID FOR* 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] INVALID FOR* Encounter Status:Closed by JOSUE BOUCHER MD on 03/14/18 PROGRESS Observed: 03/14/2018 Status: COMPLETED Source: [place] 1:06 PM [facility] REPOSITORY HNO ID: [id number] Author: Josue Boucher Service: (none) Author Type: Physician Type: Progress Notes Filed: 03/14/2018 2:42 PM Note Text: [facility] Department Date: March 14, 2018 - 1:06 PM Maddi Eaton is seen in consultation requested by Dr. Anderson Crowley for an opinion regarding chronic lower back pain. My final recommendations will be communicated back to the requesting physician by way of shared medical record or via US mail. Chief Complaint: lower back pain SUBJECTIVE: Maddi Eaton, is a 77 year old year old with no significant past medical history, who presents with lower back pain. The pain started 20 years ago, following with no precipitating event. and is stable. His pain is located in the bilateral lumbar region and does not radiate to LE. The pain is described as aching, burning, sharp, soreness and cramping. The pain intensity is rated 6. The pain is exacerbated by standing, walking, arising from a sitting position, lifting, twisting, driving/riding in car, mornings and stairs and relieved by sitting, resting, lying on the side with flexed knees, application of heat and medications - Tylenol. Symptoms interfere with physical activity, walking, household cleaning, reaching for shelves and lifting. The predominant pain is mostly lower back to hips. Obtained by Roselia Robbins MA by interview I have reviewed, confirmed and edited the preliminary information with the patient:. In addition the patient reports no additional concerns. Prior pain treatment has included physical therapy with substantial relief, Dates: December 2016 to February 2017. He had relief from the following interventions: None. ALLERGIES Allergen Reactions - Dust - Mold - Morphine Vomiting - Poison Denisse Current Medications: Pain medications reviewed and reconciled in the medication list: Yes. Current Outpatient Prescriptions: atenolol (TENORMIN) 25 mg tablet Take 0.5 tablets by mouth once daily. omeprazole (PRILOSEC) 20 mg capsule Take 1 capsule by mouth twice daily. gabapentin (NEURONTIN) 300 mg capsule Take 1 capsule by mouth three times daily for 28 days. midodrine (PROAMITINE) 5 mg tablet Take 1 tablet by mouth three times daily. betamethasone valerate 0.1 % lotion Apply 1 application to affected area twice daily. For scalp itch ketoconazole (NIZORAL) 2 % shampoo Shampoo twice a week: leave on for 2-3 minutes CYANOCOBALAMIN, VITAMIN B-12, (VITAMIN B-12 ORAL) Take by mouth once daily. CALCIUM CARBONATE/VITAMIN D3 (VITAMIN D-3 ORAL) Take by mouth once daily. acetaminophen (TYLENOL) 325 mg tablet Take 2 tablets by mouth every 6 hours as needed for Pain. Ascorbic Acid (VITAMIN C) 1,000 mg ORAL tablet Take 1,000 mg by mouth once daily. Vitamin E 400 unit ORAL Tab Take 1 tablet by mouth once daily. multivitamin ORAL tablet Take 1 tablet by mouth once daily. No current facility-administered medications for this visit. 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 - Orthostatic hypotension - Osteoarthrosis, unspecified whether generalized or localized, unspecified site osteoarthritis PAST SURGICAL HISTORY Procedure Laterality Date - COLONOSCOP W/ OR W/O BRSH SPEC 06/22/16 Colonoscopy - COLONOSCOPY W/BX 06/09/06 - EGD 06/28/2000 - EGD W/O BRSH SPECIMEN W/BX 06/2000, 06/09/06 - EGD W/O BRSH SPECIMEN W/BX 07/09/11 - EGD W/O OR W/BRUSH/WASH 02/17/16 EGD - PAST SURGICAL HISTORY OF 1959 left inguinal hernia - PAST SURGICAL HISTORY OF 1964 right inguinal hernia - PAST SURGICAL HISTORY OF kidney stones extraction - REMOVAL OF TONSILS,<12 Y/O age 10 Tonsillectomy - 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 FAMILY HISTORY Problem Relation Age of Onset - Heart Mother arthritis - unknown [Other] [OTHER] Father Social History: Alcohol Use: No Tobacco Use: 3 packs/day, for 46 years. Quit 06/17/2003. Types: Cigarettes, Chew Drug Use: No Employer And Job Title: [employer] (No job title specified) Years Of Education Completed: Not specified Marital Status: with no children REVIEW OF SYSTEMS: Constitutional: (-) Fever (-) Night Sweats (-) Weight Gain (-) Weight Loss (+) Fatigue Cardiovascular: (-) Chest Pain (-) Palpitations (+) Lightheadedness (-) Swelling of Ankles (-) Hx Heart Surgery Respiratory: (+) Shortness of Breath (+) Cough (+) Wheezing (+) Snoring Gastrointestinal: (-) Incontinence (-) Abdominal Pain (-) Diarrhea (-) Constipation (-) Nausea/Vomiting (+) Heart Burn Endocrine: (-) Thyroid Disorder (-) Diabetes Hematologic: (-) Prolonged Bleeding (+) Easy Bruising Genitourinary: (-) Incontinence (-) Frequency (-) Urinary Urgency Skin: (-) Rashes (-) Itching (-) Other Lesions Neurologic: (-) Headache (-) Double Vision (-) Confusion (-) Paralysis (-) Vertigo (-) Syncope Psychiatric: (-) Depression (-) Anxiety (-) Delusions (-) Hallucinations (-) Suicidal Thoughts Roselia Robbins MA OARRS Report reviewed: Yes Narcotic Agreement reviewed and signed?: N/A Baseline Urine Toxicology obtained: N/A Urine Panel: No results found for: UQCANN, UQBNZL, NFK8QKW, UQAMPH, UQMAMP, UQBUPRE, UQNORBUP, UQMTHD, UQEDDP, UQTRAM, UQDTRM, UQFNTL, UQNFTL, UQCODE, UQMORP, UQDCDN, UQHCOD, UQOXYC, UQHMOR, UQOXYM, UQCREA, UQPH, UQSPGR, UQOXID, UQSPQ The pain panel was N/A I have reviewed, confirmed and edited the preliminary information with the patient: OBJECTIVE: PHYSICAL EXAMINATION: Pulse 73 Wt 154 lb (69.9kg) SpO2 93% General: Well-appearing, alert, in no acute distress Skin: Skin color, texture, turgor normal, no rashes or lesions HEENT: Normocephalic, atraumatic, sclera nonicteric CV: Regular rate and rhythm -Pulses: +2 and equal bilaterally Resp: Breathing unlabored, normal chest excursion. GI: Abdomen soft, not distended nontender Lymphatic:No lymphadema Musculoskeletal Neck: Posture and spinal curves are normal, Supple, normal range of motion, non-tender Back: Posture and spinal curves are abnormal; flexed forward posture, normal range of motion without reproducible pain, mild pain to palpation of the lumbar spine at L5-S1 level, straight leg raising test is negative bilaterally. Negative facet loading. Bilateral PSIS tenderness. Positive sacral thrust. Positive Gaenslens. Extremities: Normal without deformity, edema or skin discoloration Neurological: Mental Status: Alert and oriented x3, Appropriate to topic Motor Strength:Motor strength and tone are 5/5 throughout Sensory:Sensation was intact to light touch all throughout DTR:Reflexes decreased bilateral LE. Gait: antalgic Medical record and diagnostic tests reviewed for today's visit: The [facility] EMR was reviewed during the visit IMAGING STUDIES: No new imaging studies were reviewed during this office visit. Xray of lumbar spine reviewed. 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 Discussed conservative options and focus on improvement of function. Discussed the rationale behind interventional approach and how it can facilitate improvement of pain but also diagnostic information that procedures provide. 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 Recommend a trial of bilateral SI joint injection. 2. no new meds started. 3. Continue with physical therapy. 4. Counseled patient regarding the importance of activity modification. 5. Follow up:3 months for an office visit. The above plan and management options were discussed with patient. The patient is in agreement with the above and verbalized understanding. I have discussed and confirmed the above treatment plan with the patient. and I have reviewed the nurses notes and I am aware of the family/social history. Josue Boucher MD March 14, 2018 cc: Anderson Crowley MD [id number] [place] [address] Results of consultation to be transmitted via electronic medical record for those providers who practice within [facility] or with access to [employer] via MD Connect, or via letter. HOSP Observed: 03/14/2018 Status: COMPLETED Source: [place] 12:00 AM CLINIC OTHER CAMPUS REPOSITORY Patient:Maddi Eaton MRN: <[id number]> Height:6' 1.5(1.867 m) Weight:154 lb (69.854 kg) Outpatient Medications as of 03/31/18: B Complex Vitamins capsule atenolol (TENORMIN) 25 mg tablet omeprazole (PRILOSEC) 20 mg capsule gabapentin (NEURONTIN) 300 mg capsule midodrine (PROAMITINE) 5 mg tablet betamethasone valerate 0.1 % lotion ketoconazole (NIZORAL) 2 % shampoo CALCIUM CARBONATE/VITAMIN D3 (VITAMIN D-3 ORAL) acetaminophen (TYLENOL) 325 mg tablet Ascorbic Acid (VITAMIN C) 1,000 mg ORAL tablet Vitamin E 400 unit ORAL Tab multivitamin ORAL tablet Admission/Clinic Administered Medications as of 03/31/18: NaCl 0.9% iv infusion Problem List: Calculus of kidney [N20.0] Essential hypertension [I10] Personal history of tobacco use, presenting hazards to health [Z87.891] Benign neoplasm of colon [D12.6] Unspecified disorder of prostate [N42.9] Esophageal reflux [K21.9] Myalgia and myositis, unspecified [NJT2456] Unspecified disorder of kidney and ureter [N28.9] Diaphragmatic hernia without mention of obstruction or gangrene [K44.9] Acute gastritis without mention of hemorrhage [K29.00] Dysphagia [R13.10] Degeneration of cervical intervertebral disc [M50.30] Cervicalgia [M54.2] DDD (degenerative disc disease), lumbar [M51.36] H/O malignant neoplasm of head and neck [Z85.89] Right shoulder pain [M25.511] Impingement syndrome of right shoulder [M75.41] 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] Chronic fatigue [R53.82] 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, 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.36] Chronic obstructive pulmonary disease (HCC) [J44.9] Dysautonomia orthostatic hypotension syndrome (HCC) [G90.3] Chronic bilateral low back pain with left-sided sciatica [M54.42, G89.29] Chronic SI joint pain [M53.3, G89.29] 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] Allergies: Dust Mold Morphine Poison Denisse Date Verified: 03/31/18 Lab Values No results within the last 30 days for the following basenames: K,HCT Progress Notes ([facility]): TRINITY Dela Cruz 03/24/2018 11:59 AM Sign at close encounter [facility] PATIENT INFO: Maddi Eaton 77 year old PCP: Anderson Crowley MD Referred by: Anderson Crowley MD Consult: Aconsultation requested by Anderson Crowley MD for an opinion regarding Weak Stream My final recommendations communicated back to the requesting physician by way of shared Medical record. CHIEF COMPLAINT: Weak Stream HPI: This is a 77 year old male, who has had weak urine Stream , which started in {UROL DURATION:::2016}, and involves the {UROL LOCATION MALE:} Patient states this {ED SEVERITY :615984} in severity and {mild/mod/severe:444882} in quality, and is happening {UROL TIMIN} Aggravating factors: {NO YES:87943::No} , Alleviating Factors: {NO YES:29176::No} . And the patient c/o's {MDS NEW PT SANDS:94007::None} denies having {MDS NEW PT SANDS:64340::None} VOIDING SYMPTOMS: NTF: 0 Times DTF: Q 2 HOURS FOS: {GOOD/AVERAGE/POOR:57149::Good} Hesitancy: {NO YES:64480::No} Straining: {NO YES:09840::No} Intermittency: {NO YES:05914::No} Urgency: {NO YES:21353::No} Frequency: {NO YES:72720::No} Dysuria: {NO YES:04812::No} Gross Hematuria: {NO YES:98906::No} U/A Dipstick Positive Blood - Only {NO YES:74111::No} Incomplete Voiding: {NO YES:77661::No} Double Voiding: {NO YES:81530::No} Post Void Dribbling: {NO YES:89816::No} Incontinence: {NO YES:03128::No} All GUROS reviewed, all were negative, except those in HPI and above SEXUAL SYMPTOMS: ED: Number of Years of Sexual Dysfunction: {HopelaKIM NUMBER YEARS LIST:48323} Progressive Dysfunction: {YES OR NO:12991::Yes} Rigidity: {NUMBERS BY 10 (0-90):90445} % Ability to Maintain: {HAKIM INC DECR NORMAL:90547::Decreased} Orgasm: {HAMoboFreeM ORGASM LIST:47358::Normal} Ejaculation: {HAKIM EJAC INC DEC:08388::Normal} Nocturnal/A.M. Erections: {HAKIM INC DECR NORMAL:74514::Decreased} Masturbatory Erections: {HAKIM INC DECR NORMAL:29991::Decreased} Low T: Decreased Libido: {YES OR NO:91687::Yes} Erectile Dysfunction: {YES OR NO:72396::Yes} Unexplained Fatigue LOLIS: {YES OR NO:78644::Yes} CPAP:{YES OR NO:59095::Yes} Breast Enlargement: {YES OR NO:42544::Yes} Difficulty Concentrating/Memory : {YES OR NO:30061::Yes} Loss of Muscle Mass: {YES OR NO:36286::Yes} Depressed Mood: {YES OR NO:84815::Yes} Moodiness and Irritability: {YES OR NO:22817::Yes} Penile Curvature: {YES OR NO:31855::Yes} Curvature/Deviation: {RIGHT/LEFT/UP/DOWN:55378} Prior Treatment for Sexual Dysfunction: {TREATMENT FOR SEXUAL DYSFUNCTION WUROL:63340} Orals: Viagra 100 mg Cialis 5 20 mg Levitra 40 mg Stendra 200 mg IC: PGE-1 Bi-Mix Tri-Mix Symptom Scores: AUA ([employer] [employer]) Score: {N/A DEFAULT N/A:68072::N/A} MARGRET Score: (Scores range from 1 to 25) A score of 20 or higher suggest a normal degree of erectile functioning. Low scores (10 or less) suggest moderate to severe ED. [facility] Chronic Prostatitis Symptom Index: Pain , Urinary , Quality of Life , Total Chronic Orchialgia Symptom Index: Pain , Sexual , Quality of Life , Total ALLERGY: ALLERGIES Allergen Reactions - Dust - Mold - Morphine Vomiting - Poison Denisse MEDICATIONS: Current Outpatient Prescriptions: B Complex Vitamins capsule Take 1 capsule by mouth once daily. Disp: Rfl: atenolol (TENORMIN) 25 mg tablet Take 0.5 tablets by mouth once daily. Disp: 45 tablet Rfl: 3 omeprazole (PRILOSEC) 20 mg capsule Take 1 capsule by mouth twice daily. Disp: 180 capsule Rfl: 3 gabapentin (NEURONTIN) 300 mg capsule Take 1 capsule by mouth three times daily for 28 days. Disp: 270 capsule Rfl: 3 midodrine (PROAMITINE) 5 mg tablet Take 1 tablet by mouth three times daily. Disp: 270 tablet Rfl: 3 betamethasone valerate 0.1 % lotion Apply 1 application to affected area twice daily. For scalp itch Disp: 240 mL Rfl: 0 ketoconazole (NIZORAL) 2 % shampoo Shampoo twice a week: leave on for 2-3 minutes Disp: 240 mL Rfl: 2 CALCIUM CARBONATE/VITAMIN D3 (VITAMIN D-3 ORAL) Take by mouth once daily. Disp: Rfl: acetaminophen (TYLENOL) 325 mg tablet Take 2 tablets by mouth every 6 hours as needed for Pain. Disp: Rfl: 0 Ascorbic Acid (VITAMIN C) 1,000 mg ORAL tablet Take 1,000 mg by mouth once daily. Disp: Rfl: Vitamin E 400 unit ORAL Tab Take 1 tablet by mouth once daily. Disp: Rfl: multivitamin ORAL tablet Take 1 tablet by mouth once daily. Disp: Rfl: 0 No current facility-administered medications for this visit. 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 - Orthostatic hypotension - Osteoarthrosis, unspecified whether generalized or localized, unspecified site osteoarthritis Past Surgical History PAST SURGICAL HISTORY Procedure Laterality Date - COLONOSCOP W/ OR W/O BRSH SPEC 06/22/16 Colonoscopy - COLONOSCOPY W/BX 06/09/06 - EGD 06/28/2000 - EGD W/O BRSH SPECIMEN W/BX 06/2000, 06/09/06 - EGD W/O BRSH SPECIMEN W/BX 07/09/11 - EGD W/O OR W/BRUSH/WASH 02/17/16 EGD - PAST SURGICAL HISTORY OF 1959 left inguinal hernia - PAST SURGICAL HISTORY OF 1964 right inguinal hernia - PAST SURGICAL HISTORY OF kidney stones extraction - REMOVAL OF TONSILS,<12 Y/O age 10 Tonsillectomy - 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 Family History FAMILY HISTORY Problem Relation Age of Onset - Heart Mother arthritis - unknown [OTHER] Father No pertinent family history positive for urology disease per patient REVIEW OF SYSTEMS: General: { :818117::General: Well developed, well nourished. No acute distress} HEENT: { :795460::Negative for sore throat, difficulty swallowing.,Negative for frequent or significant headaches, changes in vision or hearing. } Cardiovascular: { :549437::No history of cardiovascular symtoms or problems.,No history of angina, CHF, [place], cardiac surgery of stents. } Respiratory: { :538258::Negative for current cough, dyspnea. No hx of pneumonia in the past six weeks} Gastrointestinal: { :713617::No history of GERD, PUD, abd pain, difficulty swallowing, GI bleed.} Renal: {:975786::Negative for renal failure,No history of dialysis} Musculoskeletal: {UROL MUSCULOSKELETAL ROS:695039::Negative for joint pain or swelling, back pain or muscle pain.} Skin: {UROL SKIN ROS:383704::Negative for lesions, rash and itching.} Psychological: {:699615::No history of psychiatric symptoms or problems.} Neurologic: {:048568::No history of TIA's, stroke, FINISHING TRIMMER tumor, impaired sensorium, hemiplegia, paraplegia or quadriplegia. ,No neurological symptoms or problems.} Hematology/Oncology: {:235265::No history of bleeding or clotting disorder. Pt is not taking anti-coagulation or platelet medications. No history of hematological symptoms or problems.} Endocrine: {:209009::No history of endocrinological symtoms or problems,No history of DM; has not taken steroids w/in past 30 days.,Negative for excessive sweating, thirst or hunger} PHYSICAL EXAMINATION: General Appearance/ Constitutional: {MDS NEW PT PE:00848::Well developed, well nourished, and in no apparent distress} HEENT: {NORMAL/ABNORMAL/NOT EXAMINED (DEF):45522::Not examined} Neck: Lymph Nodes: {NORMAL/ABNORMAL/NOT EXAMINED (DEF):80217::Not examined} Cardiac: {NORMAL/ABNORMAL/NOT EXAMINED (DEF):65297::Not examined} Breast: {NORMAL/ABNORMAL/NOT EXAMINED (DEF):60180::Not examined} Pulmonary: Ascultation: {NORMAL/ABNORMAL/NOT EXAMINED (DEF):33799::Not examined} Effort: {NORM / ABN / NOTEXAM:65125::Normal} GI: {MDS NEW PT PE GI DESCRIPTION:11936} Peripheral Vascular: {MDS NEW PT PE PV PULSES DESCRIPTION:80431} Extremities: {MDS NEW PT PE EXTREMITIES DESCRIPTION:42425} Skin: {NORM / ABN / NOTEXAM:66353::Not examined} Neurologic: {MDS NEW PT PE NEURO DESCRIPTION:88404} (MALE): Penis: { :34282982::Not examined} Testicles: { :090945814::Not examined} Cord/Epididymis: { :618433670::Not examined} Vas Deferens: { :791446419::Not examined} Scrotum: { :21960768::Not examined} Prostate: About gm, tender, no nodules The pelvic muscles were Prostatic massage was performed and drops of fluid obtained ADDITIONAL DATA REVIEWED: { :139723334} Testosterone Level was collected prior to 10:00 am No results found for: TESTOST No results found for: TESTFREE No results found for: PSA No results found for: HCT Results for orders placed or performed in visit on 03/24/18 UA DIP, URINE (POC) Result Value Ref Range GLUCOSE UA (POCT) Negative Negative mg/dL BILIRUBIN UA (POCT) Negative Negative KETONE UA (POCT) Negative Negative mg/dL SPECIFIC GRAVITY UA (POCT) 1.015 1.005 - 1.030 HEMOGLOBIN/BLOOD UA (POCT) Negative Negative PH UA (POCT) 6.0 4.5 - 8.0 PROTEIN UA (POCT) Negative Negative mg/dL UROBILINOGEN UA (POCT) 0.2 Normal E.U./dL NITRITE UA (POCT) Negative Negative LEUKOCYTES UA (POCT) Negative Negative COLOR UA (POCT) Yellow CLARITY UA (POCT) Clear Urine Microscopic RBC's /hpf UROLOGICAL DATA: Post Void Residual, Ultrasound: ml RADIOLOGY: {N/A DEFAULT N/A:43035::N/A} Risk of complication and/or Morbidity or Mortality: {URO MGMNT RISK LEVEL:82258::HIGH} DISEASE SPECIFICITY: Diagnosis: Acuity: { :469614} Severity: { :669290} Anatomic Site: { :837883} Underlying Condition/Causal Agent: { :266029} Associated Conditions/Manifestations: { :651261} IMPRESSION / PLAN: > History of I spent approximately {NONE/NA:90774} minutes in this visit, with more than 50% of the time devoted to patient discussion, counseling, review of records and/or coordination of care. Valerie Cho, SARAH, MT, PAJuanjoC Progress Notes ([facility]): Felecia Ross LPN, SUJATHA 03/24/2018 9:39 AM Signed Est pt, discuss recent chest x-ray SUJATHA Choi, PARTS ROOM ASSISTANT.TIRE VULCANIZER 03/24/2018 10:00 AM Signed Chief Complaint Patient presents with: Established Patient HPI: Maddi Eaton is a 77 year old male who presents here today for follow up laryngeal cancer. Per Dr. 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 ? Completed concurrent cisplatin/RT 05/22. Received all 3 cycles cisplatin, but dose reduced to 75 mg/m2 and administered daily x3 for last cycle due to increase in serum Cr. ? Underwent direct laryngoscopy 09/18/09. No evidence of residual disease. ? No complaints.? ? Appetite:it's normal Energy level:not much-my brain wants to do it but my body doesn't. Denies fevers or recent illness. 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 takes neurontin Skin:denies rashes/lesions Heme:denies bleeding The ROS is otherwise negative. Past medical history, appointments, medications, allergies reviewed. No changes. EXAM: BP 131/70 Pulse 60 Temp 36.7 ?C (98 ?F) Wt 70.1 kg (154 lb 8 oz) BMI 20.38 kg/m? APPEARANCE Well/thin appearing, alert, in no acute distress, well-hydrated, well nourished. MOUTH/THROAT no obvious lesion HEART RRR with normal S1 and S2, no murmurs LUNG clear to auscultation LYMPH NODES No cervical lymphadenopathy, No supraclavicular lymphadenopathy and No axillary lymphadenopathy. ABDOMEN bowel sounds normoactive, no bruits, soft, non-tender, non-distended, without organomegaly or palpable masses EXTREMITIES No edema NEURO Awake, alert and oriented x 3, Normal gait and No involuntary motions. SKIN Skin color, texture, turgor normal, no suspicious rashes or lesions RADIOLOGY: CXR 03/23/18: IMPRESSION: Stable exam without acute findings. ASSESSMENT/PLAN: 1. 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 - No concerning findings on exam. - Reviewed CXR with pt. - Will be 9 years our from treatment in May. - Followed by ENT yearly. - Needs appt. with Dr. Moya in Jun. at [facility]. - Follow up in one year with CXR. - Pt. aware to call office with any questions/concerns. The patient indicates understanding of these issues and agrees with the plan. Polly Cartagena, RAJEEV.TIRE VULCANIZER US ABD AORTA Observed: 03/02/2018 Status: F Source: [place] 10:02 AM [facility] REPOSITORY * * *Final Report* * * DATE OF EXAM: Mar 02 2018 10:02AM WRU [id number] - US ABD AORTA / PROCEDURE REASON: Abdominal aortic ectasia * * * * Physician Interpretation * * * * EXAMINATION: US ABD AORTA HISTORY: Abdominal aortic ectasia . TECHNIQUE: Grayscale and color Doppler images of the retroperitoneum were obtained. COMPARISON: Plain films of the lumbar spine dated 02/21/2018. RESULT: Atherosclerotic calcifications are present within the abdominal aorta. The proximal abdominal aorta measures approximately 2.7 x 3.0 cm. The midabdominal aorta measures approximately 2.9 x 3.1 cm. The distal abdominal aorta measures approximately 2.4 x 2.9 cm. Both common iliac arteries measure approximately 1.1 cm. IMPRESSION: Atherosclerotic calcifications seen within an ectatic abdominal aorta. Truck Despatcher: GARCIA Transcribe Date/Time: Mar 02 2018 10:22A Dictated by : MIRIAM LIN MD This examination was interpreted and the report reviewed and electronically signed by: MIRIAM LIN MD on Mar 02 2018 10:23AM EST [id number] PROGRESS Observed: 03/02/2018 Status: COMPLETED Source: [place] 10:01 AM [facility] REPOSITORY HNO ID: [id number] Author: Hallie Tinoco Rdms Service: (none) Author Type: (none) Type: Progress Notes Filed: 03/02/2018 10:02 AM Note Text: Radiology Service Progress Note PATIENT NAME: Maddi Eaton DATE OF SERVICE: March 02, 2018 TIME: 10:01 AM PATIENT IDENTITY VERIFICATION COMPLETED USING TWO (2) METHODS: Patient confirmed name verbally and Date of . PATIENT GENDER DATA: Male PATIENT RELEVANT IMPLANT DATA REVIEWED: Not Applicable RADIOLOGY DEPARTMENT: Ultrasound PERIPHERAL IV DATA: Not applicable SIGNED BY: Hallie Tinoco Rdar March 02, 2018 10:01 AM CNCO Observed: 02/23/2018 Status: COMPLETED Source: [place] 12:00 AM [facility] REPOSITORY Letter Text Anderson Crowley MD [facility] Maddi Eaton [address] [address] [facility] #: [id number] 02/23/2018 Dear Mr. Eaton, I have received the results of your recent tests. The results of your Urine Culture tests were either normal or within the acceptable range. We can discuss this at your next visit. Please do not hesitate to contact me with any questions. Sincerely, Anderson Crowley MD [facility] Department electronically signed to expedite mailing PROGRESS Observed: 02/21/2018 Status: COMPLETED Source: [place] 12:38 PM [facility] REPOSITORY O ID: [id number] Author: Susie Kelly (Rt) Service: (none) Author Type: Tracer Bullet Section Supervisor Type: Progress Notes Filed: 02/21/2018 12:38 PM Note Text: Radiology Service Progress Note PATIENT NAME: Maddi Eaton DATE OF SERVICE: February 21, 2018 TIME: 12:38 PM PATIENT IDENTITY VERIFICATION COMPLETED USING TWO (2) METHODS: Patient confirmed name verbally and Date of . PATIENT GENDER DATA: Male PATIENT RELEVANT IMPLANT DATA REVIEWED: Not Applicable RADIOLOGY DEPARTMENT: General X-ray: Exam(s) Completed: Spine X-Ray(s): Lumbar AP / LAT / L5-S1 PERIPHERAL IV DATA: Not applicable SIGNED BY: RT Leticia February 21, 2018 12:38 PM XR LUMBAR 3V Observed: 02/21/2018 Status: F Source: [place] AP/LAT/L5-S1 12:37 PM [facility] REPOSITORY * * *Final Report* * * DATE OF EXAM: Feb 21 2018 12:37PM WRX [id number] - XR LUMBAR 3V AP/LAT/L5-S1 / PROCEDURE REASON: Other intervertebral disc degeneration, lumbar region * * * * Physician Interpretation * * * * HISTORY: Other intervertebral disc degeneration, lumbar region TECHNIQUE: Lumbar spine, 3 views COMPARISON: 05/19/2016 RESULT: Counting reference: Lumbosacral junction. For the purposes of this report, L5S1 is considered the last lumbar type disc space. There is normal alignment of the lumbar spine. Normal lumbar vertebral body heights. Mild disc space narrowing at multiple levels of the lumbar spine with small anterior endplate osteophytes, unchanged. There is mild lower lumbar facet degenerative change. Aortic atherosclerotic calcification. Infrarenal abdominal aortic dilation measuring 3.6cm. The aortic size may be accentuated because of the exam. There is mild degenerative change of the right hip. Calcifications overlying the left flank largest measuring 7mm are felt to be a renal calculi. IMPRESSION: MILD DEGENERATIVE CHANGE OF THE LUMBAR SPINE OTHER FINDINGS DESCRIBED Truck Despatcher: GARCIA Transcribe Date/Time: Feb 21 2018 12:44P Dictated by : GUILLAUME LEWIS MD This examination was interpreted and the report reviewed and electronically signed by: GUILLAUME LEWIS MD on Feb 21 2018 12:48PM EST [id number] URINALYSIS WITH Collected: 02/21/2018 Status: F Source: [place] MICROSCOPIC 12:20 PM [facility] REPOSITORY TYPE CODE TESTS RESULT OUT OF REFERENCE UNITS RANGE LAB UCOL Yellow Color Yellow LAB [facility] Clear Clarity Clear LAB UGLUC Negative mg/dL Glucose, Urine Negative LAB UBIL Negative Bilirubin, Urine Negative LAB UKET Negative Ketones, Urine Negative LAB USPG 1.005-1.030 Specific [place], Ur 1.013 LAB UHGB Negative Hemoglobin/Blood, Negative Ur LAB UPH 4.5-8.0 pH 6.0 LAB UPROT Negative mg/dL Protein, Urine Negative LAB UUROB Normal Urobilinogen Normal LAB UNITR Negative Nitrites Negative LAB ULKEST Negative Leukest Negative LAB UCOM Comments SEE COMMENT Result Comment: N/A LAB UMCOM Urine SEE Agustin Comment COMMENT Result Comment: N/A LAB UWBC 0-5 /HPF WBC 0-5 LAB URBC 0-3 /HPF RBC 0-3 Performed By: #### UAWMIC #### [facility] [address] [place], [place] [address] Observed: 02/21/2018 Status: F Source: [place] URINE CULTURE 12:20 PM [facility] REPOSITORY Culture Result - No growth (<1,000 CFU/ml) Performed By: #### URCUL #### [facility] [address] [place], [place] [address] PROGRESS Observed: 02/21/2018 Status: COMPLETED Source: [place] 11:35 AM [facility] REPOSITORY HNO ID: [id number] Author: Anderson Crowley Service: (none) Author Type: Physician Type: Progress Notes Filed: 02/23/2018 5:01 PM Note Text: Patient presents with: Back Pain Epistaxis HPI: Patient presents today for office visit for follow up on chronic back pain. Has had physical therapy, MRI and seen spine center. Pain is getting worse. Has been doing chiropractic. Has had worsening pain. Location is unchanged. Pain had decreased for a while. No new numbness or weakness. No issues controlling bowel or bladder. Had repeat xrays done by ? [facility] and told he had degenerative changes. They were trying to sell things like stem cell treatments. MRI of LS Spine. Impression: 1. ?Mild degenerative changes of the lumbar spine. ?No abnormal enhancement. 2. 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 Has occasional mild nose bleeds, discussed saline nose drops. ent if continues. Has chronic urinary issues. No dysuria or hematuria. Truck Despatcher: GARCIA ? Transcribe Date/Time: Feb 05 2017 11:51A MEDICATIONS: Current Outpatient Prescriptions: atenolol (TENORMIN) 25 mg tablet TAKE 0.5 TABLETS BY MOUTH ONCE DAILY. omeprazole (PRILOSEC) 20 mg capsule TAKE 1 CAPSULE BY MOUTH TWICE DAILY. gabapentin (NEURONTIN) 300 mg capsule Take 1 capsule by mouth three times daily for 28 days. betamethasone valerate 0.1 % lotion Apply 1 application to affected area twice daily. For scalp itch ketoconazole (NIZORAL) 2 % shampoo Shampoo twice a week: leave on for 2-3 minutes midodrine (PROAMITINE) 5 mg tablet Take 1 tablet by mouth three times daily. CYANOCOBALAMIN, VITAMIN B-12, (VITAMIN B-12 ORAL) Take by mouth once daily. CALCIUM CARBONATE/VITAMIN D3 (VITAMIN D-3 ORAL) Take by mouth once daily. acetaminophen (TYLENOL) 325 mg tablet Take 2 tablets by mouth every 6 hours as needed for Pain. Ascorbic Acid (VITAMIN C) 1,000 mg ORAL tablet Take 1,000 mg by mouth once daily. Vitamin E 400 unit ORAL Tab Take 1 tablet by mouth once daily. multivitamin ORAL tablet Take 1 tablet by mouth once daily. No current facility-administered medications for this visit. 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 - Orthostatic hypotension - Osteoarthrosis, unspecified whether generalized or localized, unspecified site osteoarthritis PAST SURGICAL HISTORY Procedure Laterality Date - COLONOSCOP W/ OR W/O BRSH SPEC 06/22/16 Colonoscopy - COLONOSCOPY W/BX 06/09/06 - EGD 06/28/2000 - EGD W/O BRSH SPECIMEN W/BX 06/2000, 06/09/06 - EGD W/O BRSH SPECIMEN W/BX 07/09/11 - EGD W/O OR W/BRUSH/WASH 02/17/16 EGD - PAST SURGICAL HISTORY OF 1959 left inguinal hernia - PAST SURGICAL HISTORY OF 1964 right inguinal hernia - PAST SURGICAL HISTORY OF kidney stones extraction - REMOVAL OF TONSILS,<14 Y/O age 10 Tonsillectomy - 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 FAMILY HISTORY Problem Relation Age of Onset - Heart Mother arthritis - unknown [Other] [OTHER] Father Social History Marital status: Spouse name: Marcus Years of education: Number of children: 0 Occupational History Occupation Employer Comment [employer]* Social History Main Topics Smoking status: Former Smoker Packs/day: 3.00 Years: 46.00 Types: Cigarettes Quit date: 06/17/2003 Smokeless tobacco: Former User Types: Chew Quit date: 04/13/2009 Alcohol use: No Drug use: No Reviewed current medications, allergies, past medical history, surgical history, family history and social history today. REVIEW OF SYSTEMS Still having urine issues. Had seen Christos for the same. GI: Negative for abdominal discomfort, blood in stools or black stools, change in bowel habit All other reviewed and negative other than HPI. VITALS: BP 132/88 Pulse 72 Resp 16 Wt 68.9 kg (152 lb) BMI 20.05 kg/m? Last 4 Encounter Wt Readings: Date: Wt: 02/21/2018 68.9 kg (152 lb) 08/30/2017 70.3 kg (155 lb) 03/25/2017 70.3 kg (155 lb) 02/16/2017 71 kg (156 lb 9.6 oz) PHYSICAL EXAMINATION: General appearance: Well appearing, alert, in no acute distress, well-hydrated, well nourished. Skin: Skin color, texture, turgor normal, no suspicious rashes or lesions Head: Normocephalic, no masses, lesions, tenderness or abnormalities, normal nose exam. BACK: Normal curvature of spine. No spine tenderness. Straight leg test negative. Deep tendon reflexes 2+/4 at patellas. Normal lower extremity strength. Lungs: Lungs clear to auscultation. No wheezing, rhonchi, rales Heart: RRR without murmur, gallop, or rubs. No ectopy Abdomen: Normal abdominal exam, Abdomen soft, non-tender. Bowel sounds normal. No masses, organomegaly Extremities: No deformities, edema, skin discoloration, clubbing or cyanosis. Good capillary refill. ASSESSMENT/PLAN: 1. DDD (degenerative disc disease), lumbar - ICD9: 722.52, ICD10: M51.36 (primary diagnosis) - pain is identical to his chronic issues, wants to see what next step is. Call if worsens. - XR LUMBAR GENERAL 3V AP/LAT/L5-S1 - CONSULT TO PAIN MGT ANESTHESIA 2. Essential hypertension - ICD9: 401.9, ICD10: I10 - good control - Continue current medication(s) - Goal of BP <130/80 3. 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 4. Dysautonomia orthostatic hypotension syndrome (HCC) - ICD9: 333.0, ICD10: G90.3 - stable 5. Chronic obstructive pulmonary disease, unspecified COPD type (HCC) - ICD9: 496, ICD10: J44.9 - stable. 6. Benign prostatic hyperplasia with lower urinary tract symptoms, symptom details unspecified - ICD9: 600.01, ICD10: N40.1 - see urology - CONSULT TO UROLOGY - URINALYSIS WITH MICROSCOPIC - URINE CULTURE Anderson Crowley MD CNOV Observed: 02/21/2018 Status: COMPLETED Source: [place] 10:40 AM [facility] REPOSITORY Office Visit ([facility]WS) MADDI EATON ([id number]) 1940 M Date Time Provider Department 02/21/18 10:40 AM ANDERSON CROWLEY [facility]WS During your visit today, we recorded the following information about you: Pulse Respiration Blood pressure Weight 72/minute 16/minute 132/88 68.9 kg Oneyda Aaronperez Jain 02/21/2018 11:03 AM Signed BACK PAIN: Pt c/o lower back pain that radiates into his buttocks and around to his groin area. Started mid December. Pain has been getting worse. Taking Tylenol as needed. Anderson Crowley MD 02/23/2018 5:01 PM Signed Patient presents with: Back Pain Epistaxis HPI: Patient presents today for office visit for follow up on chronic back pain. Has had physical therapy, MRI and seen spine center. Pain is getting worse. Has been doing chiropractic. Has had worsening pain. Location is unchanged. Pain had decreased for a while. No new numbness or weakness. No issues controlling bowel or bladder. Had repeat xrays done by ? [facility] and told he had degenerative changes. They were trying to sell things like stem cell treatments. MRI of LS Spine. Impression: 1. ?Mild degenerative changes of the lumbar spine. ?No abnormal enhancement. 2. 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 Has occasional mild nose bleeds, discussed saline nose drops. ent if continues. Has chronic urinary issues. No dysuria or hematuria. Truck Despatcher: GARCIA ? Transcribe Date/Time: Feb 05 2017 11:51A MEDICATIONS: Current Outpatient Prescriptions: atenolol (TENORMIN) 25 mg tablet TAKE 0.5 TABLETS BY MOUTH ONCE DAILY. omeprazole (PRILOSEC) 20 mg capsule TAKE 1 CAPSULE BY MOUTH TWICE DAILY. gabapentin (NEURONTIN) 300 mg capsule Take 1 capsule by mouth three times daily for 28 days. betamethasone valerate 0.1 % lotion Apply 1 application to affected area twice daily. For scalp itch ketoconazole (NIZORAL) 2 % shampoo Shampoo twice a week: leave on for 2-3 minutes midodrine (PROAMITINE) 5 mg tablet Take 1 tablet by mouth three times daily. CYANOCOBALAMIN, VITAMIN B-12, (VITAMIN B-12 ORAL) Take by mouth once daily. CALCIUM CARBONATE/VITAMIN D3 (VITAMIN D-3 ORAL) Take by mouth once daily. acetaminophen (TYLENOL) 325 mg tablet Take 2 tablets by mouth every 6 hours as needed for Pain. Ascorbic Acid (VITAMIN C) 1,000 mg ORAL tablet Take 1,000 mg by mouth once daily. Vitamin E 400 unit ORAL Tab Take 1 tablet by mouth once daily. multivitamin ORAL tablet Take 1 tablet by mouth once daily. No current facility-administered medications for this visit. 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 - Orthostatic hypotension - Osteoarthrosis, unspecified whether generalized or localized, unspecified site osteoarthritis PAST SURGICAL HISTORY Procedure Laterality Date - COLONOSCOP W/ OR W/O BRSH SPEC 06/22/16 Colonoscopy - COLONOSCOPY W/BX 06/09/06 - EGD 06/28/2000 - EGD W/O BRSH SPECIMEN W/BX 06/2000, 06/09/06 - EGD W/O BRSH SPECIMEN W/BX 07/09/11 - EGD W/O OR W/BRUSH/WASH 02/17/16 EGD - PAST SURGICAL HISTORY OF 1959 left inguinal hernia - PAST SURGICAL HISTORY OF 1964 right inguinal hernia - PAST SURGICAL HISTORY OF kidney stones extraction - REMOVAL OF TONSILS,<14 Y/O age 10 Tonsillectomy - 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 FAMILY HISTORY Problem Relation Age of Onset - Heart Mother arthritis - unknown [Other] [OTHER] Father Social History Marital status: Spouse name: Marcus Years of education: Number of children: 0 Occupational History Occupation Employer Comment [employer]* Social History Main Topics Smoking status: Former Smoker Packs/day: 3.00 Years: 46.00 Types: Cigarettes Quit date: 06/17/2003 Smokeless tobacco: Former User Types: Chew Quit date: 04/13/2009 Alcohol use: No Drug use: No Reviewed current medications, allergies, past medical history, surgical history, family history and social history today. REVIEW OF SYSTEMS Still having urine issues. Had seen [facility] for the same. GI: Negative for abdominal discomfort, blood in stools or black stools, change in bowel habit All other reviewed and negative other than HPI. VITALS: BP 132/88 Pulse 72 Resp 16 Wt 68.9 kg (152 lb) BMI 20.05 kg/m? Last 4 Encounter Wt Readings: Date: Wt: 02/21/2018 68.9 kg (152 lb) 08/30/2017 70.3 kg (155 lb) 03/25/2017 70.3 kg (155 lb) 02/16/2017 71 kg (156 lb 9.6 oz) PHYSICAL EXAMINATION: General appearance: Well appearing, alert, in no acute distress, well-hydrated, well nourished. Skin: Skin color, texture, turgor normal, no suspicious rashes or lesions Head: Normocephalic, no masses, lesions, tenderness or abnormalities, normal nose exam. BACK: Normal curvature of spine. No spine tenderness. Straight leg test negative. Deep tendon reflexes 2+/4 at patellas. Normal lower extremity strength. Lungs: Lungs clear to auscultation. No wheezing, rhonchi, rales Heart: RRR without murmur, gallop, or rubs. No ectopy Abdomen: Normal abdominal exam, Abdomen soft, non-tender. Bowel sounds normal. No masses, organomegaly Extremities: No deformities, edema, skin discoloration, clubbing or cyanosis. Good capillary refill. ASSESSMENT/PLAN: 1. DDD (degenerative disc disease), lumbar - ICD9: 722.52, ICD10: M51.36 (primary diagnosis) - pain is identical to his chronic issues, wants to see what next step is. Call if worsens. - XR LUMBAR GENERAL 3V AP/LAT/L5-S1 - CONSULT TO PAIN MGT ANESTHESIA 2. Essential hypertension - ICD9: 401.9, ICD10: I10 - good control - Continue current medication(s) - Goal of BP <130/80 3. 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 4. Dysautonomia orthostatic hypotension syndrome (HCC) - ICD9: 333.0, ICD10: G90.3 - stable 5. Chronic obstructive pulmonary disease, unspecified COPD type (HCC) - ICD9: 496, ICD10: J44.9 - stable. 6. Benign prostatic hyperplasia with lower urinary tract symptoms, symptom details unspecified - ICD9: 600.01, ICD10: N40.1 - see urology - CONSULT TO UROLOGY - URINALYSIS WITH MICROSCOPIC - URINE CULTURE Anderson Crowley MD Referring Provider: SELF [200] Allergies As of Date: 02/21/2018 Noted Allergy Reaction DUST 06/02/2005 MOLD 06/02/2005 MORPHINE 08/20/2008 11 - Vomiting POISON DENISSE 06/02/2005 Date Reviewed: 02/21/2018 Reviewed by: Oneyda Sheldon Ma - Fully Assessed Reason for Visit: Back Pain [12] Epistaxis [251] Reason For Visit History Recorded Primary Visit Diagnosis:DDD (degenerative disc disease), lumbar [M51.36] Other Visit Diagnoses:Essential hypertension [I10] 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, T45.1X5A] Dysautonomia orthostatic hypotension syndrome (HCC) [G90.3] Chronic obstructive pulmonary disease, unspecified COPD type (HCC) [J44.9] Benign prostatic hyperplasia with lower urinary tract symptoms, symptom details unspecified [N40.1] Order(s):CONSULT TO UROLOGY [9041] Order #: [id number]: 1 URINALYSIS WITH MICROSCOPIC [SQUAWMIC] Order #: [id number] FUTURE URINE CULTURE [SQURCUL] Order #: [id number] FUTURE XR LUMBAR GENERAL 3V AP/LAT/L5-S1 [1247767] Order #: [id number] FUTURE CONSULT TO PAIN MGT ANESTHESIA [19991219] Order #: [id number]: 1 Prescriptions as of 02/21/2018 Sig: ATENOLOL 25 MG TABLET TAKE 0.5 TABLETS BY MOUTH ONC* OMEPRAZOLE 20 MG CAPSULE,CIRO* TAKE 1 CAPSULE BY MOUTH TWICE* GABAPENTIN 300 MG CAPSULE Take 1 capsule by mouth three* BETAMETHASONE VALERATE 0.1 % * Apply 1 application to affect* KETOCONAZOLE 2 % SHAMPOO Shampoo twice a week: leave o* MIDODRINE 5 MG TABLET Take 1 tablet by mouth three * VITAMIN B-12 ORAL Take by mouth once daily. VITAMIN D-3 ORAL Take by mouth once daily. ACETAMINOPHEN 325 MG TABLET Take 2 tablets by mouth every* * ASCORBIC ACID (VITAMIN C) 1,0* Take 1,000 mg by mouth once d* * VITAMIN E 400 UNIT TABLET Take 1 tablet by mouth once d* * MULTIVITAMIN TABLET Take 1 tablet by mouth once d* Problem List As Of Date 02/21/2018 Noted Resolved Unspecified chest pain [R07.9] INVALID FOR*07/09/2010 CALCULUS OF KIDNEY [N20.0] INVALID FOR* Essential hypertension [I10] INVALID FOR* More... 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 Acute gastritis without mention of hemorrhage [*INVALID FOR*07/09/2010 Irritable bowel syndrome [K58.9] INVALID FOR*07/09/2010 Unspecified disorder of prostate [N42.9] INVALID FOR* More... Esophageal reflux [K21.9] INVALID FOR* More... MYALGIA AND MYOSITIS NOS [FEJ1607] INVALID FOR* Pain in joint, multiple sites [M25.50] INVALID FOR*07/09/2010 RENAL AND URETERAL DIS NOS [N28.9] INVALID FOR* THYROID NODULE [E04.1] INVALID FOR*07/09/2010 ENLARGEMENT LYMPH NODES NECK [R59.9] INVALID FOR*07/09/2010 MALIG NEOPLASM SUPRAGLOTTIS - SQUAMOUS CELL CA *INVALID FOR*03/26/2014 More... Peripheral neuropathy, secondary to drugs or ch*INVALID FOR*12/10/2016 Diaphragmatic hernia without mention of obstruc*INVALID FOR* Acute gastritis without mention of hemorrhage [*INVALID FOR* Dysphagia [R13.10] INVALID FOR* Degeneration of cervical intervertebral disc [M*INVALID FOR* Cervicalgia [M54.2] INVALID FOR* DDD (degenerative disc disease), lumbar [M51.36]INVALID FOR* Degeneration of intervertebral disc, site unspe*INVALID FOR*12/10/2016 H/O malignant neoplasm of head and neck [Z85.89]INVALID FOR* Right shoulder pain [M25.511] INVALID FOR* Impingement syndrome of right shoulder [M75.41] INVALID FOR* 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] INVALID FOR*12/10/2016 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 Started mid December. Pain has been getting worse. Taking Tylenol as needed. Encounter Status:Closed by ANDERSON CROWLEY MD on 02/23/18 OBSOLETE Observed: 10/13/2017 Status: COMPLETED Source: [place] 12:00 AM [facility] RE[facility]ORY [facility] MADDI EATON ([id number]) 1940 M Date Time Provider Department 10/13/17 ANDERSON CROWLEY During your visit today, we recorded the following information about you: Kaitlyn Monge LPN 10/13/2017 3:26 PM Signed Patient has been identified by name and date of : Yes Pending Prescriptions Disp Refills GABAPENTIN 300 MG CAPSULE 270 capsule 3 Sig: Take 1 capsule by mouth three times daily. FREDY: No RX INSTRUCTIONS: Pharmacy initiated this request. No need to notify patient. 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 VITAMIN D-3 ORAL Take by mouth once daily. ACETAMINOPHEN 325 MG TABLET Take 2 tablets by mouth every* * ASCORBIC ACID (VITAMIN C) 1,0* Take 1,000 mg by mouth once d* * VITAMIN E 400 UNIT TABLET Take 1 tablet by mouth once d* * MULTIVITAMIN TABLET Take 1 tablet by mouth once d* Problem List As Of Date 10/13/2017 Noted Resolved Unspecified chest pain [R07.9] INVALID FOR*07/09/2010 CALCULUS OF KIDNEY [N20.0] INVALID FOR* Essential hypertension [I10] INVALID FOR* More... 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 Acute gastritis without mention of hemorrhage [*INVALID FOR*07/09/2010 Irritable bowel syndrome [K58.9] INVALID FOR*07/09/2010 Unspecified disorder of prostate [N42.9] INVALID FOR* More... Esophageal reflux [K21.9] INVALID FOR* More... 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 Peripheral neuropathy, secondary to drugs or ch*INVALID FOR*12/10/2016 Diaphragmatic hernia without mention of obstruc*INVALID FOR* Acute gastritis without mention of hemorrhage [*INVALID FOR* Dysphagia [R13.10] INVALID FOR* Degeneration of cervical intervertebral disc [M*INVALID FOR* Cervicalgia [M54.2] INVALID FOR* DDD (degenerative disc disease), lumbar [M51.36]INVALID FOR* Degeneration of intervertebral disc, site unspe*INVALID FOR*12/10/2016 H/O malignant neoplasm of head and neck [Z85.89]INVALID FOR* Right shoulder pain [M25.511] INVALID FOR* Impingement syndrome of right shoulder [M75.41] INVALID FOR* 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] INVALID FOR*12/10/2016 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] INVALID FOR* Chronic fatigue [R53.82] INVALID FOR* 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 Medications Discontinued During This Encounter gabapentin (NEURONTIN) 300 mg capsule 90 c* 3 07/19/2017 10/13/2017 Route: ORAL Sig: Take 1 capsule by mouth three times daily. Disc: Reason for discontinue is not on file. Encounter Status:Closed by LEXUS, ANDERSON J MD on 10/13/17 ALLERGIES ALLERGIES DATE TYPE / CODE NAME / CODE REACTION SEVERITY SOURCE 08/25/2018 Drug morphine/F0060 Vomiting Unknown [place] Allergy/[id number](S 23849(RXNORM) [facility]) Hospital Repository 11/14/2016 Miscellaneous DUST [facility] [place] [id number]/14[facility]2016 Miscellaneous MOLD Other Unknown [place] Allergy/[id number]([facility]) Hospital Repository 08/20/2008 DRUG [facility]PH[id number] [place] Rep[facility] 06/02/2005 Environ/[id number](S DUST [place] [facility]) Clinic Other [place] Rep[facility] 06/02/2005 [id number]) [place] Rep[facility] 06/02/2005 Environ[facility][id number][facility] [place] [facility] ENCOUNTERS ENCOUNTERS ADMIT/DISCHARGE ACCOUNT ADMITTING ENCOUNTER LOCATION SOURCE NUMBER CLASS 08/25/2018 [id number] [facility] 08/25/2018/08/25/20 [id number] [facility] [place] [facility] 06/20/2018/06/23/20 [id number] Ambulatory [address] Repository 06/02/2018/06/02/20 [id number] JOSUE BOUCHER Ambulatory [address] Other [place] Repository 05/10/2018/05/14/20 [id number] Ambulatory [address] [place] Repository 03/31/2018/03/31/20 [id number] JOSUE BOUCHER Ambulatory [address] Other [place] Repository 03/24/2018/04/04/20 [id number] Ambulatory [address] [place] Repository 03/24/2018/03/25/20 [id number] Ambulatory [address] [place] Repository 03/23/2018/03/23/20 [id number] Ambulatory [address] [place] Repository 03/14/2018/03/14/20 [id number] Ambulatory [address] [place] Repository 03/02/2018/03/02/20 [id number] Ambulatory [address] Repository 02/21/2018/02/22/20 [id number] Ambulatory [address] Repository 02/21/2018 [id number] Ambulatory [facility] Repository 02/21/2018/02/25/20 [id number] Ambulatory [address] Repository PAYERS PAYERS ENCOUNTER GUARANTOR PAYER SUBSCRIBER SOURCE 08/25/2018 MADDI [id number] Primary MADDI TIRADOB: [place] [address] Insurance:[facility] [id number] [place] [facility] [address]Ofg: (330) 07/14/18Policy Number: Repository [phone] () [id number] Date:[id number] [address] [place] [id number]: 08/25/2018 Secondary NOT GIVENUNK Vidya Insurance:SELF PAY [facility] Number: Effective Repository Date:2018-08-25 08/25/2018 MADDI [id number] Primary MADDI TIRADOB: [place] [address] Insurance:[facility] [id number] [place] [facility] [address]Nzq: (330) 07/14/18Policy Number: Repository [phone] () [id number] Date:[id number] [address] [place] [id number]: 08/25/2018 Secondary NOT GIVENUNK [place] Insurance:SELF PAY [facility] Number: Effective Repository Date:2018-07-19
== END ==
PROVIDERS: Family Provider Family Medicine; PCP Family Medicine; Referring Provider Orthopaedic Surgery; Visit Provider Orthopaedic Surgery
DX: M25.562 Pain in left knee (principal)
CPT/HCPCS: 73564

== ENCOUNTER → 2019-05-05 | Outpatient (CLI) | payer MEDICARE, OTHER, SELFPAY ==
[2016-11-14 10:40] VITALS: BMI 20.4
--- NOTE | 2019-05-05 10:58 | RAD_ITS ---
STUDY: X-RAY - PELVIS AND BILATERAL HIPS REASON FOR EXAM: Male, 78 years old. Chronic pain. TECHNIQUE: AP view of the pelvis.? 2 views of the right hip, and 2 views of the left hip were obtained. COMPARISON: None. FINDINGS: There is a non-specific bowel gas pattern. Normal visualized soft tissue structures. Mild degenerative changes of the SI joints and symphysis. Normal bilateral superior and inferior pubic rami. Normal bilateral ischial tuberosities. Minimal marginal osteophytosis of the femoral head. Normal right acetabulum. There is mild articular joint space narrowing of the right hip. Normal visualized left femoral head. Normal left acetabulum. There is mild articular joint space narrowing of the left hip. RAD/Hips B/L min 2 views w/ Pelvis IMPRESSION: Intact pelvis and hips without fracture, dislocation, osteolytic or blastic bone lesion. Mild degenerative changes of the hips, right slightly greater than left. Degenerative changes consist mostly of mild narrowing and mild marginal osteophytosis of the right femoral head. Electronically Signed: Radha Mar MD at 22:40 EDT , Service support ,
== END | disposition home or self-care (01) ==
LOC: HPRAD 10:56
PROVIDERS: Family Provider Family Medicine; PCP Family Medicine; Referring Provider Nurse Practitioner Family; Visit Provider Nurse Practitioner Family
DX: M25.551 Pain in right hip (principal); M25.552 Pain in left hip
CPT/HCPCS: 73521

== ENCOUNTER → 2019-07-06 10:48 | Outpatient (CLI) | payer MEDICARE, OTHER, SELFPAY ==
--- NOTE | 2019-07-06 11:04 | MRI_ITS ---
STUDY: MRI LUMBAR SPINE WITHOUT CONTRAST REASON FOR EXAM: Male, 78 years old. spinal stenosis, lumbar degeneration, low back pain, bilat leg cramps. TECHNIQUE: Standardized fat and water weighted pulse sequences were obtained in the sagittal and axial planes. COMPARISON: February 28, 2014 FINDINGS: Normal lumbar lordosis. There is no substantial scoliosis. Normal conus medullaris that terminates at the L1 L1-2: There is minimal disc space narrowing and endplate spondylosis. There is no significant disc herniation, central canal or foraminal stenosis. L2-3: There is moderate disc space narrowing and endplates spondylosis. There is moderate disc bulge without significant central canal stenosis. There is minimal right and mild left foraminal stenosis. Findings are stable since prior examination L3-4: There is moderate disc space narrowing and endplates spondylosis. There is a moderate disc bulge asymmetric to the left with mild left foraminal stenosis. There is mild central canal and minimal right foraminal stenosis. L4-5: There is increased moderate disc space narrowing and endplates spondylosis and endplate edema. There is moderate disc bulge and facet arthropathy asymmetric to the right with moderate right foraminal stenosis. There is mild central canal and mild left foraminal stenosis. The previously noted left paracentral protrusion is no longer seen. L5-S1: There is mild disc space narrowing and endplates spondylosis. There is minimal disc bulge and facet arthropathy without significant central canal stenosis. There is mild right and mild left foraminal stenosis. Findings are slightly increased since prior examination. There is stable 1.2 cm right perineural cyst. S1/S2 there is stable 4 cm left there are normal cysts Normal visualized sacral ala. MRI/Spine Lumbar (Routine) IMPRESSION: L4/L5: Increased degenerative changes. Moderate right foraminal stenosis. Electronically Signed: Shikha Lerma MD at 11:08 EDT Tel , Service support ,
== END ==
PROVIDERS: Family Provider Family Medicine; PCP Family Medicine; Referring Provider Nurse Practitioner Family; Visit Provider Nurse Practitioner Family
DX: M46.96 Unspecified inflammatory spondylopathy, lumbar region (principal); M51.37 Other intervertebral disc degeneration, lumbosacral region; M47.817 Spondylosis without myelopathy or radiculopathy, lumbosacral region; M48.061 Spinal stenosis, lumbar region without neurogenic claudication
CPT/HCPCS: 72148

== ENCOUNTER 2019-10-01 14:00 | Inpatient (IN) | payer MEDICARE, OTHER, SELFPAY ==
[2019-10-01 14:42] VITALS: BP 168/90; PULSE 66; RESP 18; TEMP 37; O2SAT 95; BMI 21.9
[2019-10-01] MEDS: Tamsulosin HCl 0.4 MG Capsule PO (16:57)
[2019-10-01] MEDS: Bisacodyl 5 MG Tablet 10 MG PO (16:57)
[2019-10-01] MEDS: Ondansetron ODT 4 MG Tablet PO (18:11)
[2019-10-01 21:06] VITALS: BP 148/85; PULSE 84; RESP 18; TEMP 36.8; O2SAT 94
[2019-10-01] MEDS: Magnesium Hydroxide 30 ML UDC PO (21:22)
[2019-10-01] MEDS: Pantoprazole Sodium 40 MG Tablet PO (21:22)
[2019-10-01] MEDS: oxyCODONE 5 MG Tablet PO (21:22)
[2019-10-01] MEDS: Senna/Docusate Sodium 1 Tablet 2 TABLET PO (21:22)
[2019-10-01] MEDS: Gabapentin 300 MG Capsule PO (21:22)
--- NOTE | 2019-10-01 21:32 | NURSING ---
MOM given for constipation. pt tolerated well
[2019-10-02] MEDS: oxyCODONE 5 MG Tablet PO ×3 (05:28→23:58)
[2019-10-02] MEDS: Gabapentin 300 MG Capsule PO ×3 (05:28→21:07)
[2019-10-02 06:46] VITALS: O2SAT 96
[2019-10-02 07:00] VITALS: BP 135/76; BP 137/81; BP 146/86; PULSE 90; PULSE 93; PULSE 94; RESP 17; TEMP 36.7; O2SAT 93
[2019-10-02] MEDS: Ascorbic Acid 500 MG Tablet 1000 MG PO (07:57)
[2019-10-02] MEDS: Pantoprazole Sodium 40 MG Tablet PO ×2 (07:58→21:24)
[2019-10-02 08:06] VITALS: BP 90/56; PULSE 93
[2019-10-02] MEDS: Atenolol 25 MG Tablet 12.5 MG PO (10:40)
[2019-10-02 10:43] VITALS: BP 158/88; PULSE 80
--- NOTE | 2019-10-02 13:01 | HP.PCM_ITS ---
Problem List (1) Renal failure Status: Chronic Qualifiers: Renal failure chronicity: chronic Chronic kidney disease stage: stage 3 (moderate) Qualified Code(s): N18.3 - Chronic kidney disease, stage 3 (moderate) Comment: no baseline available (2) Former smoker Status: Chronic Comment: quit in 2002 smoked for 48 years...up to 3 PPD at times (3) Macrocytic anemia Status: Chronic Comment: B12, TSH, folate all normal. (4) History of hypertension Status: Chronic (5) BPH (benign prostatic hypertrophy) Status: Chronic Qualifiers: Lower urinary tract symptom presence: symptoms present Lower urinary tract symptom detail: weak urinary stream Qualified Code(s): N40.1 - Benign prostatic hyperplasia with lower urinary tract symptoms; R39.12 - Poor urinary stream (6) Rhinitis Status: Chronic (7) Neuropathy Status: Chronic Comment: on gabapentin (8) GERD (gastroesophageal reflux disease) Status: Chronic Qualifiers: Esophagitis presence: esophagitis presence not specified Qualified Code(s): K21.9 - Gastro-esophageal reflux disease without esophagitis (9) History of esophageal cancer Status: Chronic Comment: Follows with Dr. Hartmann. Treated with radiation in the past and with chemo - 2006. Has also had an esophageal satric ture.....dilated in he thinks. (10) Orthostatic hypotension Status: Chronic Comment: on Midodrin (11) Depression Status: Chronic (12) Autonomic neuropathy Status: Suspected (13) Osteoarthritis of left knee Status: Chronic Qualifiers: Osteoarthritis type: primary Qualified Code(s): M17.12 - Unilateral primary osteoarthritis, left knee Comment: S/P TKR (14) Status post total left knee replacement Status: Chronic (15) Urinary retention Status: Acute Comment: September 2019, after Laminectomy, had to have a Zapata placed. He was constipated and on narcotics and no medication to treat the BPH he had previously been diagnosed with. (16) Lightheadedness Status: Chronic Comment: due to orthostatic hypotension (17) COPD (chronic obstructive pulmonary disease) Status: Chronic Comment: saw Dr. Sterling once and PFT's that showed severe obstruction with 18% reversal with bronchodilator (18) Left carotid bruit Status: Chronic (19) History of laminectomy Status: Chronic Comment: 09/28/19. Spine surgery by Dr. García Martell at the [facility] including bilateral posterior hemilaminectomies at L2, L3, L4 and L5: Bilateral partial facetectomies and foraminotomies at L2- L3, L3-L4 and L4-L5: Posterior lateral fusion L4-L5 bilaterally with autogenous local graft and 15 mL influx cortical bone, bone graft substitute: Bilateral segmental fixation L4-L5 utilizing back to basics instrumentation and local graft harvest from decompression used for fusion. (20) Nephrolithiasis Status: Chronic (21) Benign neoplasm of colon Status: Acute (22) Hypertrophic obstructive cardiomyopathy (HOCM) Status: Acute (23) Eosinophilia Status: Chronic (24) Bifascicular bundle branch block Status: Chronic Comment: Right bundle branch block and left anterior fascicular block (25) Grade I diastolic dysfunction Status: Chronic (26) Asymmetric septal hypertrophy Status: Chronic Comment: Moderate upper septal left ventricular hypertrophy History of Present Illness Date of Admission: 10/01/19 Chief Complaint: Debility secondary to recent laminectomy The pt is a 79-year-old male with a PMH of hypertension, orthostatic hypotension with suspected autonomic neuropathy, 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, esophageal stricture (dilated in 2019), GERD, chronic renal failure stage III, BPH, nephrolithiasis with history of lithotripsy, peripheral neuropathy secondary to chemotherapy, chronic macrocytic anemia (with normal B12, normal TSH and normal folate), leg cramps(worse at night - no improvement with B complex), chronic rhinitis and pruritus with increased eosinophils, COPD, osteoarthritis, depression, Hypertrophic upper LV ventricular septum with mild outflow obstruction and lumbar spine surgery at the [facility] for unstable L4-5 spondylolisthesis with L4-5 laminectomy and fusion and microdissections with mini laminectomies and facetectomies at L2-3, L3-4 and L4-5 admitted to the Inpatient rehab unit at [facility] on 10/01/2019 for debility secondary to spine surgery for greater than 3 hours of therapy daily with a goal of returning home at or ne ar prior level of independence. The patient lives at home by himself and has 3 steps to enter his house and a second floor bedroom and basement. The patient was independent with ADL's, mobility and driving prior to hospitalization. I reviewed the records from the surgery, Dr. Crowley, Dr. Lal (cardiology) and Dr. Sterling (pulmonary) including recent PFT's. Unclear as to whether he had esophageal, laryngeal or pharyngeal cancer....will request Dr. Hartmann's records to clarify. Reviewed the ECHO done recently and his medication records. Past Medical History Past Medical History (Chronic Problems): Chronic Problems (Last Reviewed 09/08/17 @ 10:24 by Abhay Casillas) Left carotid bruit (Chronic) History of laminectomy (Chronic) 09/28/19. Spine surgery by Dr. García Martell at the [facility] [place] including bilateral posterior hemilaminectomies at L2, L3, L4 and L5: Bilateral partial facetectomies and foraminotomies at L2-L3, L3-L4 and L4-L5: Posterior lateral fusion L4-L5 bilaterally with autogenous local graft and 15 mL influx cortical bone, bone graft substitute: Bilateral segmental fixation L4-L5 utilizing back to basics instrumentation and local graft harvest from decompression used for fusion. Nephrolithiasis (Chronic) Eosinophilia (Chronic) Bifascicular bundle branch block (Chronic) Right bundle branch block and left anterior fascicular block Grade I diastolic dysfunction (Chronic) Asymmetric septal hypertrophy (Chronic) Moderate upper septal left ventricular hypertrophy Renal failure (Chronic) no baseline available Former smoker (Chronic) quit in 2002 smoked for 48 years...up to 3 PPD at times Macrocytic anemia (Chronic) B12, TSH, folate all normal. History of hypertension (Chronic) BPH (benign prostatic hypertrophy) (Chronic) Rhinitis (Chronic) Neuropathy (Chronic) on gabapentin GERD (gastroesophageal reflux disease) (Chronic) History of esophageal cancer (Chronic) Follows with Dr. Hartmann. Treated with radiation in the past and with chemo - 2006. Has also had an esophageal satricture.....dilated in he thinks. Orthostatic hypotension (Chronic) on Midodrin Depression (Chronic) Osteoarthritis of left knee (Chronic) S/P TKR Status post total left knee replacement (Chronic) Lightheadedness (Chronic) due to orthostatic hypotension COPD (chronic obstructive pulmonary disease) (Chronic) saw Dr. Sterling once and PFT's that showed severe obstruction with 18% reversal with bronchodilator Allergies morphine Adverse Reaction (Verified 08/25/18 09:30) Vomiting DUST Allergy (Uncoded 11/14/16 10:43) Other SNEEZING MOLD Allergy (Uncoded 11/14/16 10:43) Other Home Medications: Ambulatory Orders Medication Instructions Recorded Atenolol [Tenormin (beta daniel)] 12.5 mg PO DAILY 09/15/16 gabapentin 300 mg capsule 300 mg PO TID cap 09/02/17 Albuterol IH (ProAir) [Proair Hfa 2 puff INHALATION DAILY 10/01/19 (SP)Vent Pts] Albuterol Inhaler [Ventolin Hfa 2 puff INHALATION Q4H PRN PRN 10/01/19 (SP)] Midodrine HCl 2.5 mg PO BID 10/01/19 Omeprazole 40 mg PO BID 10/01/19 Oxycodone [Oxyir] 5 mg PO Q6H PRN PRN 10/01/19 Surgical History: Surgical History (Last Reviewed 09/08/17 @ 10:24 by Abhay Casillas) H/O hernia repair Z98.890, Z87.19 1960 1965 History of tonsillectomy Z98.890, Z90.89 S/P total knee arthroplasty Z96.659 left 09/22/16 Surgical History: total knee arthroplasty - Left., - - Lithotripsy, bilateral inguinal hernia repair, laminectomy and fusion L4-L5 September 2019, Psychiatric History: Depression Lives: Alone, - - no children and no family in the area Smoking Status: Former smoker Tobacco Use: Non-smoker - he quit in 2002 but, prior to that he smoked up to 3 PPD for 48 years, Chew - in the past but, quit this as well Alcohol: Heavy - in the past - no ETOH at present Drugs: None - *Family History Maternal History Items: Heart Disease - his mother of heart disease Paternal History Items: Unknown - he did not know his father Sibling History Items: Pulmonary Disease - he had a brother with chronic lung disease and he of lung disease.....was on chronic oxygen for quite some time before passing Review of Systems Constitutional: Denies: Chills, Fever, Weight Change HEENT: Reports: Difficulty Swallowing - has been evaluated in the past. Denies: Head Aches, Sinus Congestion, Sinus Drainage Cardiovascular: Reports: Chest Pain - at times....comes and goes - associated with taking a deep breath. Had this prior to recent surgery.. Denies: Palpitations Respiratory: Reports: Shortness of Breath, Shortness of breath upon exertion, Sputum production - chronic. Denies: Cough, Hemoptysis, Shortness of breath at rest Gastrointestinal: Reports: Constipation - this resolved after A LAXATIVE, Nausea - episodic. Denies: Abdominal Pain, Vomiting Genitourinary: Reports: Hesitancy, - - slow stream. Denies: Dysuria Musculoskeletal: Reports: Back Pain - and has sciatica at times in both legs. He also has cramping in the legs and feet....more so at night., - - having some pain in the Left calf and pain in the left chest with deep breath......not on any pharmocologic DVT prophylaxis after surgery. Denies: Joint Pain, Joint Tenderness Skin: Denies: Rash, Wounds Neurological: Reports: Difficulty swallowing, Tremor - at times, not chronic, - - has some memory difficulties. Denies: Change in Speech, Slurred speech, Focal weakness, Headaches, Numbness, Tingling Psychiatric: Reports: Depression. Denies: Anxiety, Homicidal Ideations, Suicidal Ideations Endocrine: Reports: Hx of Irradiation - to the neck for CA Hematologic/ Lymphatic: Denies: Easy Bruising, Easy Bleeding, Hx of blood clot VTE Information - Inpt Only VTE Present on Admission: No VTE Mechan Device Prophylaxis: SCD's, Knee High MIKE Hose VTE Pharm Prophylaxis ordered?: No Reason prophylaxis not ordered:: Treatment Not Indicated - had spinal surgery on 09/28/19. will check with the surgeon when it is OK to start the pharmacologic prophylaxis Patient Problems: Active and Suspected Problems (Last Reviewed 09/08/17 @ 10:24 by Abhay Casillas) Benign neoplasm of colon (Acute) Hypertrophic obstructive cardiomyopathy (HOCM) (Acute) - Physical Exam Vitals/I&O's: Vital Signs Temp Pulse Resp BP Pulse Ox 98.1 F 80 17 158/88 H 93 10/02/19 07:00 10/02/19 10:43 10/02/19 07:00 10/02/19 10:43 10/02/19 07:00 Oxygen Delivery Method Room Air Weight: 166 lb Body Mass Index (BMI) 21.9 Intake and Output for Last 24 Hours 09/30/19 10/01/19 10/02/19 23:59 23:59 23:59 Intake Total 400 / 400 400 / 400 Output Total 750 / 750 350 / 350 Balance -350 / -350 50 / 50 General: Alert, Oriented x3, Cooperative, No apparent distress, Well developed, Well nourished HEENT: Atraumatic, PERRLA, EOMI, Normocephalic Oral: No Gingival or Mucosal Lesions/ Ulcerations, Dry Mucosa Neck: Supple, No JVD, No Nodes, Trachea Midline, Carotid Bruit, Left Lungs: Clear to auscultation, No rhonchi, No wheeze, No rales, Diminished Cardiovascular: Regular rate, Regular Rhythm, Normal S1, Normal S2, No murmurs, No rub noted, No Gallop Abdomen: Bowel Sounds Present - hyperactive at present., Soft, Non Tender, Distended - mildly....+ tympany. May be due to the Laxative he had resulting in diarrhea., - - diffusely tender to palpation but, no guarding with palpation. No abdominal bruits appreciated but, difficult to hear over the bowel sounds. Extremities: No clubbing, No cyanosis, No edema, Diminished Peripheral Pulses - ooedal pulses are diminished and so are the popliteals. The femoral pulses are 3/3......can not evaulate at this time for femoral pulses since the BS's are so loud., Tenderness - in the calves, L > R. Skin: No rashes, No breakdown Musculoskeletal: No Tenderness to Palpation of Joints or Extremities, Arthritic Changes Lymphatic: No Cervical, Supraclavicular, or Inguinal Adenopathy Neurological: Cranial nerves II-XII grossly intact, Neuro grossly intact - he has neuropathy in his feet due to the chemotherapy for the laryngeal CA? Psych/Mental Status: Appropriate, Flat Affect Current Medications Albuterol Sulfate (Ventolin Hfa (Sp)) 2 puff INHALATION Q4H PRN PRN PRN Reason: SOB &/OR WHEEZING Last Admin: 10/02/19 05:39 Dose: 2 puff Documented by: Albuterol Sulfate (Ventolin Hfa (Sp)) 2 puff INHALATION DAILY [facility] Last Admin: 10/02/19 07:57 Dose: 2 puff Documented by: Ascorbic Acid (Vitamin C) 1,000 mg PO DAILY@0800 [facility] Last Admin: 10/02/19 07:57 Dose: 1,000 mg Documented by: Atenolol (Tenormin (Beta Daniel)) 12.5 mg PO DAILY [facility] Last Admin: 10/02/19 10:40 Dose: 12.5 mg Documented by: Bisacodyl (Dulcolax) 10 mg PO DAILY PRN PRN Reason: Constipation Bisacodyl (Dulcolax) 10 mg RECTAL .PRN X 1 PRN PRN Reason: Constipation Gabapentin (Neurontin) 300 mg PO TID [facility] Last Admin: 10/02/19 05:28 Dose: 300 mg Documented by: Magnesium Hydroxide (Milk Of Magnesia) 30 ml PO .PRN X 1 PRN PRN Reason: Constipation Last Admin: 10/01/19 21:22 Dose: 30 ml Documented by: Midodrine (Proamatine) 2.5 mg PO BID@0600,1800 [facility] Last Admin: 10/02/19 05:28 Dose: Not Given Documented by: Multivitamins (Allbee W/C Caplet, Thera B Comp/C) [facility] Ondansetron HCl (Zofran Odt) 4 mg PO Q6H PRN PRN PRN Reason: NAUSEA/VOMITING Last Admin: 10/01/19 18:11 Dose: 4 mg Documented by: Oxycodone HCl (Oxyir) 5 mg PO Q4H PRN PRN PRN Reason: Pain Score 1-10/10 Last Admin: 10/02/19 12:36 Dose: 5 mg Documented by: Pantoprazole Sodium (Protonix) 40 mg PO BID [facility] Last Admin: 10/02/19 07:58 Dose: 40 mg Documented by: Senna/Docusate Sodium (Senokot-S, Aurelia-Colace) 2 tablet PO BID [facility] Last Admin: 10/02/19 08:01 Dose: Not Given Documented by: Tamsulosin HCl (Flomax) 0.4 mg PO DAILY@1730 [facility] Last Admin: 10/01/19 16:57 Dose: 0.4 mg Documented by: Vitamin E (Vitamin E) 400 units [facility] Assessment/Plan All Active Problems (Last Reviewed 09/08/17 @ 10:24 by Abhay Casillas) Benign neoplasm of colon (Acute) Hypertrophic obstructive cardiomyopathy (HOCM) (Acute) Urinary retention (Acute) Dehydration (Resolved) Hypophosphatemia (Resolved) Impressions 1. Debility due to Lumbar spine surgery on 09/28/19 - please see the problem list for the description of the procedure. 2. History of unstable spondylolisthesis at L4-5. 3. GERD - not improved with PPI. Carafate added. ST eval for swallowing ordered. PPI may nneed adjustment for CRF - pharmacy will look at this and make an adjustment if necessary. 4. BPI with sx of Lower urinary tract obstruction. Arrived a rehab with a Zapata in place and on no medication for BPH. Flomax was started at admission and will order a voiding trial in a few days. 5. Constipation - resolved with laxative. Bowel protocol ordered. 6. Left carotid bruit - needs evaluated in the future with a carotid US. 7. Left calf pain with pleuritic type chest pain on the right side. Venous US's ordered. If there is a DVT present will order a CTA of the chest. 8. Diminished pulses in the feet and the popliteal area BL. Possible PVD. Some of the leg pain at night and the cramps may be due to this. Recommend OP arterial studies.......unless it continues and is a problem with therapy then will order in house. 9. cough with pleuritic chest pain - PA and LAT CXR ordered. Lab in the AM 10. Chronic medical conditions include HTN, hx of laryngeal CA treated with radiation and chemo, esophageal stricture (dilated in 2019), tobacco dependence in remission, Severe obstructive lung disease on a PRN Ventolin inhaler only, Neuropathy due to chemo, BPH, nephrolithiasis with hx of lithotripsy in the past, OA, depression - complicate care and management. Continue home meds and adjust medications as indicated. PLAN PT for gait stability OT for ADL's ST for evaluation for swallowing Analgesics as needed Bowel protocol Fall precautions Assess for Anxiety/Depression GI prophylaxis -he is already on a PPI 40 mg twice daily for treatment of GERD DVT prophylaxis with SCDs and MIKE coy at the current time. We will call Dr. Martell's office and ask when it is appropriate to start pharmacologic prophylaxis. Follow up with Dr. Martell, Dr. Crowley, Dr. Lal and Dr. Sterling following DC from [facility] Start a long acting bronchodilator and continue the PRN Ventolin. Reassess for breathing daily - he may need to have a long acting inhaled Steroid added to the long acting Bronchodilator. spent a total of 60 minutes reviewing records, performing the admitting H&P, explaining how things work in rehab and answering questions from the patient Code Visit Inpatient E&M: 43127 Init Hosp L3
--- NOTE | 2019-10-02 14:45 | VDLE_ITS ---
Reason For Study: pain RIGHT LEFT GSV is normal. GSV is normal. CFV is compressible, spontaneous, phasic, CFV is compressible, spontaneous, phasic, competent and demonstrates normal competent, and demonstrates normal augmentation. augmentation. FV is compressible, spontaneous, phasic, FV is compressible, spontaneous, phasic, competent and demonstrates normal competent and demonstrates normal augmentation. augmentation. POP V is compressible, spontaneous, phasic, POP V is compressible, spontaneous, phasic, competent and demonstrates normal competent and demonstrates normal augmentation. augmentation. T/P Trunk is compressible. T/P Trunk is compressible. PTV is compressible. PTV is compressible. RT PerV is compressible. LT PerV is compressible. Procedure Exam performed portable in patient room. The exam was diagnostic. A preliminary report was called and/or faxed to [facility]. Interpretation Summary Deep veins of the lower extremities are bilaterally patent and compressible segmentally. There is no evidence of deep vein thrombosis on either side. Valvular competence appears intact within the proximal deep venous systems bilaterally. The great saphenous veins appear bilaterally patent and compressible segmentally. Ordering Physician: Willa Mccollum Referring Physician: Anderson Crowley Performed By: Mariaa Qureshi, CANDY, RVT
--- NOTE | 2019-10-02 15:30 | RAD_ITS ---
STUDY: X-RAY CHEST REASON FOR EXAM: Male, 79 years old. cough, pleuritic chest pain TECHNIQUE: PA and lateral views of the chest. COMPARISON: 11/14/2016. FINDINGS: The lungs are clear and expanded. There is no demonstrated pleural abnormality. Normal size heart. Normal mediastinum and tanner. Normal visualized pulmonary arteries. There is atherosclerotic calcification of the aortic arch with tortuosity. There are diffuse degenerative changes of the visualized thoracic spine. There is degenerative osteoarthritis of the bilateral shoulders. There is no demonstrated abnormality of the visualized soft tissue structures of the upper abdomen. RAD/Chest PA and Lateral IMPRESSION: No acute cardiopulmonary disease. Electronically Signed: Amanda Webster MD at 0:33 EST , Service support ,
--- NOTE | 2019-10-02 15:34 | NURSING ---
off floor to cxray
--- NOTE | 2019-10-02 15:51 | NURSING ---
dopplers being completed to ble at bedside
--- NOTE | 2019-10-02 16:00 | NURSING ---
Message left with bilingual secretary for Dr. Martell spinal surgeon to see when patient can start DVT prophylaxis.
--- NOTE | 2019-10-02 16:01 | NURSING ---
dopplers to ble negative per rn vascular.
[2019-10-02] MEDS: Tamsulosin HCl 0.4 MG Capsule PO (16:41)
[2019-10-02] MEDS: Sucralfate 1 GM Tablet PO ×2 (16:41→21:07)
[2019-10-02 17:15] VITALS: BP 158/80
--- NOTE | 2019-10-02 18:53 | PCM.RU.PYE ---
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 Status Changes from Prescreening?: No changes Identified Actual Problem List:: Falls, Skin Intergrity, Depression, Bowel, Constipation, Mobility Impaired, Self Care Deficit, BP, Hypertension, Alteration-Leisure Activ. Potential Problem List:: DVT, Bleeding, Infection, UTI, Aspiration, Falls, Skin Integrity, Depression Risk of Complications DVT: MIKE Hose, Sequential Compression Device Bleeding: Monitor Lab Values, Nursing to Teach Precautions for anti-coagulation therapy., Wound, if applicable, to be assessed every shift. Infection: Clinical Staff to Monitor for S/S of infection:, S/S of infection include fever, redness, warmth, etc. Urinary Tract Infection: Monitor for frequency, burning, discomfort, or incontinence., Nursing will obtain urine sample for urinalysis and C&S when ordered. Aspiration: Clinical staff will monitor for coughing, drooling, congestion., Speech will evaluate swallowing and dsyphasia., Nursing will monitor patient swallowing during meals. Falls: Patient will be evaluated for Fall Precautions, Patient will be placed on Fall Precautions as indicated per protocol. Skin Breakdown: Nursing will assess skin daily using assessment tool., Nursing will place on Skin Breakdown Precautions as indicated. Pain: Clinical staff will assess patient's pain level per protocol., Medications will be given, if needed, and the pain level reassessed., Other methods: Massage, distraction, decrease stimulus, etc. used PRN. Plan of Care Patient requires physician specializing in physical medicine and rehab oversight to provide close medical supervision of rehab issues including: Pain Management, Sleep Problems, Bowel and Bladder - He has a Zapata for urine retention at the present time. started on Flomax and will do a voiding trial in a few days., Medical and co-morbidity Management, DVT prophylaxis, Rehabilitation Leadership, Coordination of treatment team Patient needs Physical Therapy: For a minimum of 1 hour, At least 5 out of 7 days Patient needs Physical Therapy to improve:: Mobility, Mobility, Mobility, Strengthening, Transfers, Stretching, ROM, Endurance, Stairs, Gait, Balance Patient needs Occupational Therapy: For a minimum of 1 hour, At least 5 out of 7 days Patient needs Occupational Therapy to improve ADL's incl.: Eating, Grooming, Bathing, Dressing, Toileting, Toilet transfers, Community Reintegration, Higher functioning activities, Household tasks, Adaptive Equipment, Splinting, Other activities as determined Patient requires speech therapy: For a minimum of 1 hour - for swallowing difficulty associated with chronic productive cough and hx of esophageal stricture requiring dilation in the past. Patient requires speech therapy for: Swallowing, Cognition, Language Skills, Compensatory Strategies Patient requires 24/7 Rehabilitation Nursing for: Pain Issues, Identifying and preventing risk factors, Monitoring and reporting current medical conditions, Assisting with ambulation, transfer, and all ADL's, Teaching patients about disease process and medications, Family teaching, Providing safe environment, Bowel and Bladder Issues, Skin integrity, Medication Management Patient needs Sanitation Supervisor/ Case Management for: Discharge Planning, Arranging Home Equipment or Services, Family Interventions Patient needs Dietary and Nutrition Services for: Adequate Nutrition, Nutritional Supplements, Nutritional Education Goals Patient will remain: free from falls, or injury at time of discharge. Patient will perform bed mobility at: MOD I level of assist. Patient will complete transfers from bed to chair at: MOD I level of assist. Patient will ambulate: 100 feet, with MOD I assist, with LRD Patient will complete upper body dressing at: MOD I level of assist. Patient will complete lower body dressing at: MOD I level of assist. Patient will complete toileting at: MOD I level of assist. Patient will perform bathing at: MOD I level of assist. Patient will complete grooming at: MOD I level of assist. Patient will complete home management skills at: MOD I level of assist. Patient will achieve: 12 stairs, at MOD I assist Patient will have pain level of: of 3 or less Patient's skin will: remain intact, free from infection. Patient will receive: adequate nutrition. Discharge Planning Pt Prognosis for Sig. Practical Improv. w/in Reasonable Time: Good Estimated Length of stay (days): 10 Anticipated D/C Destination: Home with Home Health Was Preadmission Assessment Accurate?: Yes
[2019-10-02 21:27] VITALS: BP 126/73; PULSE 73; RESP 16; TEMP 36.4; O2SAT 91
--- NOTE | 2019-10-03 03:59 | PCM.PN.BLA ---
Progress Note Notified of positive occult blood. Reported patient having diarrhea. Discontinue all bowel regimen. CBC Wednesday ordered for a.m. Consider further work-up as necessary. No chemical thromboprophylaxis. Patient with SCD.
[2019-10-03 05:56] LABS: Absolute Lymphocyte Count 0.59 X10^3/uL (0.83-4.51); Absolute Neutrophil Count 5.4 X10^3/uL (2.0-7.7); Basophil# 0.03 X10^3/uL; Basophil% 0.4 % (0-1); Eosinophil# 0.49 X10^3/uL; Eosinophils% 6.7 % (0-5); Hematocrit 30.7 % (40-54); Hemoglobin 9.8 g/dL (13.0-16.5); Lymphocyte # 0.59 X10^3/ul (4.0); Mean Corp Hgb Conc 31.9 g/dL (32-36); Mean Corpuscular Hgb 29.1 pg (27.0-32.0); Mean Corpuscular Volume 91.1 fL (80-94); Mean Platelet Vol. 10.5 fl (6.2-12.0); Monocyte# 0.73 X10^3/uL; Monocyte% 9.9 % (0-10); NRBC Flagged by Analyzer 0 % (0-5); Neutrophil # 5.43 X10^3/uL (2.7-7.7); POSITIVE DIFFERENTIAL YES; Platelet Count 254 K/mm3 (150-450); RBC Distribution Width CV 13.1 % (11.6-14.6); RBC Distribution Width SD 43.5 fl (35.1-43.9); Red Blood Count 3.37 M/mm3 (4.6-6.2); White Blood Count 7.3 K/mm3 (4.4-11.0)
[2019-10-03] MEDS: Gabapentin 300 MG Capsule PO ×3 (06:03→21:44)
[2019-10-03] MEDS: Sucralfate 1 GM Tablet PO ×4 (06:03→21:44)
[2019-10-03] MEDS: Midodrine HCl 5 MG Tablet 2.5 MG PO ×2 (06:03→18:39)
[2019-10-03 06:05] LABS: Differential Indicated SCAN CRITERIA MET
[2019-10-03 06:28] LABS: ALB/GLOB Ratio 0.6 RATIO (0.9-2.4); AST(SGOT) 21 U/L (15-37); Alanine Aminotransfer ALT/SGPT 15 U/L (16-61); Albumin, Serum 2.4 g/dL (3.2-5.0); Alkaline Phosphatase 125 U/L (45-117); Anion Gap 7 (5-15); BUN 28 mg/dL (7-18); BUN/Creat Ratio 21.7 RATIO (10-20); Chloride 106 mmol/L (98-107); Cholesterol 180 mg/dL (200); Creatinine, Serum 1.29 mg/dL (0.70-1.30); EST Glomerular Filtration Rate 57 mL/min (>60); Est Glom Filt Rate - Afr Amer 69 mL/min (>60); Estimated Creatinine Clearance 51.07 ml/min; Glucose 91 mg/dL (74-106); High Density Lipoprotein 45 mg/dL; Magnesium 2.3 mg/dL (1.6-2.6); Phosphorus 3.3 mg/dL (2.5-4.9); Potassium 3.6 mmol/L (3.5-5.1); Protein, Total 6.4 g/dL (6.4-8.2); Sodium Level 140 mmol/L (136-145); Triglycerides 169 mg/dL; Very Low Density Lipoprotein 34 mg/dL (5-40)
[2019-10-03 06:47] LABS: Differential Comment SCANNED
[2019-10-03] MEDS: Ascorbic Acid 500 MG Tablet 1000 MG PO (07:31)
[2019-10-03 09:07] VITALS: BP 103/58; PULSE 85; RESP 18; TEMP 36.6; O2SAT 97
[2019-10-03] MEDS: oxyCODONE 5 MG Tablet PO ×2 (09:39→21:43)
[2019-10-03] MEDS: Loratadine 10 MG Tablet PO (09:41)
[2019-10-03] MEDS: Pantoprazole Sodium 40 MG Tablet PO ×2 (09:41→21:44)
[2019-10-03] MEDS: Atenolol 25 MG Tablet 12.5 MG PO (09:42)
--- NOTE | 2019-10-03 11:47 | CASEMGMT ---
Social Work Met with patient for initial assessment. Educated patient to Palliative Medicine as pt has qualifying dx. Pt agreeable to referral. Referral made to [facility]. Hansa Kerr, WATER QUALITY TECHNICIAN SUPERVISOR ORCHARD
--- NOTE | 2019-10-03 12:00 | NURSING ---
Addendum entered by Yara Cole 10/03/19 17:55: Clarify: as long as patient is getting up to ambulate and active in PT Original Note: Alvin Martell office reported to this nurse that no DVT prophylaxis is recommended as long as the patient is ambulatory and getting up to ambulate.
[2019-10-03] MEDS: Tamsulosin HCl 0.4 MG Capsule PO (16:46)
--- NOTE | 2019-10-03 16:47 | CASEMGMT ---
Social Work Reviewed and agreed social work quality assurance intern documentation on this date. Hansa Kerr MSW MANAGER ANIMAL
[2019-10-03 16:55] VITALS: O2SAT 97
[2019-10-03] MEDS: Mirtazapine 15 MG Tablet PO (21:44)
[2019-10-03 21:50] VITALS: PULSE 84; RESP 16; O2SAT 93
[2019-10-03 22:00] VITALS: BP 104/59; PULSE 86; RESP 16; TEMP 37; O2SAT 93
--- NOTE | 2019-10-04 | RAD_ITS ---
STUDY: SWALLOWING STUDY REASON FOR EXAM: Male, 79 years old. DYSPHAGIA. 3179 IMAGES TECHNIQUE: The examination was performed with Speech Pathology in attendance. Under fluoroscopic observation, the patient ingested thin barium, thick barium, barium pudding, and barium coated cracker. FLUOROSCOPY TIME: 3:33 minutes/seconds. 3179 images were obtained. RADIOLOGIST INVOLVEMENT: Radiologist was present and providing direct supervision. COMPARISON: Comparison is made with prior study dated October 01, 2016. FINDINGS: The following was observed during swallowing of the various mixtures of barium: Thin Barium: There is evidence of penetration and silent aspiration with ingestion of thin liquids. Thick Barium: Penetration and silent aspiration with ingestion of nectar thickened liquids. Barium Pudding: There was no evidence of aspiration or laryngeal penetration. Barium Coated Cracker: There was no evidence of aspiration or laryngeal penetration. RAD/Swallowing Function w/Video IMPRESSION: Solid aspiration with ingestion of thin liquids and nectar thickened liquids. The swallow study findings were discussed with the patient by the speech pathologist at the conclusion of the examination. Please see speech pathology report for more information and recommendations. Electronically Signed: Kb Garduno, at 14:26 EST , Service support ,
--- NOTE | 2019-10-04 04:21 | NURSING ---
Reviewed and agree with business teacher documentation.
[2019-10-04 06:13] LABS: Hematocrit 29.3 % (40-54); Hemoglobin 9.6 g/dL (13.0-16.5)
[2019-10-04] MEDS: Gabapentin 300 MG Capsule PO ×3 (06:34→22:09)
[2019-10-04] MEDS: Sucralfate 1 GM Tablet PO ×4 (06:34→22:09)
[2019-10-04] MEDS: Midodrine HCl 5 MG Tablet 2.5 MG PO ×2 (06:35→17:05)
[2019-10-04 09:10] VITALS: BP 112/73; PULSE 79; RESP 18; TEMP 36.9; O2SAT 95
[2019-10-04 09:11] VITALS: BP 112/73; PULSE 79; RESP 17; TEMP 36.9; O2SAT 91
[2019-10-04] MEDS: Pantoprazole Sodium 40 MG Tablet PO ×2 (10:19→22:10)
[2019-10-04] MEDS: Atenolol 25 MG Tablet 12.5 MG PO (10:19)
[2019-10-04] MEDS: Loratadine 10 MG Tablet PO (10:19)
[2019-10-04] MEDS: Ascorbic Acid 500 MG Tablet 1000 MG PO (10:19)
--- NOTE | 2019-10-04 10:40 | PCM.PN.BLA ---
Progress Note Afebile VSS Maintaining appropriate oxygen saturation on RA Oral intake is poor. He is on Ensure 3 times daily with meals. Per the dietitian no evidence of malnutrition however the patient is under his ideal body weight. Discussed with nursing - no problems that need addressed Reviewed the PT/OT notes Medication list reviewed. He is currently on Protonix and sucralfate for positive heme stool. Started on Remeron to treat depression and stimulate appetite. He has a long history of depression and was not on medication at the time of admission to the inpatient rehab unit. He is taking oxycodone 5 mg 1-2 times daily for pain. Serevent was added to the drug regimen for severe obstructive disease on the PFT's done by Dr. Sterling. Gi ALLENI PRN. All lab was personally reviewed. Hemoglobin is 9.6 and stable. Platelets and white blood cell count are within normal limits. Creatinine is 1.29 with a BUN of 28 and a BUN/creatinine ratio elevated at 22. Creatinine is within his baseline for the past few years. The GFR is 57 which is consistent with stage III chronic renal failure. Calcium phosphorus and magnesium are within normal limits. The LDL is 101 and the HDL is 45. Triglycerides are within normal limits. Stool is Hemoccult positive Venous ultrasound of the lower extremities was negative for DVT. He states he slept well last night. Pain is tolerable. He was OK with scheduling Tylenol BID for better pain control. He denies SOB. Denies CP. he does admit to some painful swallowing and to epigastric discomfort. He denies any hx of PUD. No suprapubic pain. will do a voiding trial in the AM since he has had a few days of Proscar. alert, sitting in the WC at the bedside and appears in NAD. Ate 1200% of his lunch Lungs - rare scattered exp wheezing. no Rales. Not tachypneic, no conversational dyspnea, no accessory muscle use. Denies shortness of breath at rest. Heart-regular rate and rhythm, no gallop, normal S1, normal S2 Abdomen-soft, nontender, nondistended, bowel sounds are less hyperactive today No peripheral edema No calf pain Incision is intact without erythema, purulent discharge or increased warmth to touch in the area surrounding the incision. Impressions 1. chronic anemia with heme + stool and with odonophagia and epigastric pain. Continue Protonix and Carafate - he states the pain with swallowing is a little better with the addition of the Carafate. 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 Monitor the HH periodically. It is stable at present 2. 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 3. 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 Started on Flomax at admission. Voiding trial tomorrow. 4. Eosinophilia-started on an antihistamine for pruritus. No significant improvement yet. Will dontinue for at least 1 week before we consider this a failure. May need to see a flat sorter processor for testing. 5. COPD-started on a Serevent inhaler, better air exchange today. Continue Serevent and PRN albuterol MDIs Add scheduled Tylenol 1 g p.o. twice daily STROKE Vital Signs/Narrative: Vital Signs Temp Pulse Resp BP Pulse Ox 10/04/19 09:11 98.4 F 79 17 112/73 91 10/04/19 09:10 98.4 F 79 18 112/73 95 Code Visit Inpatient E&M: 64013 Subs Hosp L2
--- NOTE | 2019-10-04 14:00 | SP.MBSS_ITS ---
PRIMARY / SECONDARY DIAGNOSIS: dysphagia (R13.12) REFERRING PHYSICIAN: Dr. Aida Mccollum MD. 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 (35 fractions; 04/15/2009 to 06/13/2009), esophageal stenosis status post esophageal dilatation (12/2018), chronic obstructive pulmonary disease, macrocytic anemia, gastroesophageal reflux disease, chronic rhinitis, former smoker (quit 2002), chronic neuropathy, grade I diastolic dysfunction, left carotid bruit, bifascicular bundle branch block, hypertension, orthostatic hypotension with chronic lightheadedness, eosinophilia, osteoarthritis, chronic depression, nephrolithiasis, renal failure, benign prostatic hyperplasia, bilateral posterior hemilaminectomies at L2, L3, L4 and L5: bilateral partial facetectomies and foraminotomies at L2-L3, L3-L4 and L4-L5: posterior lateral fusion L4-L5 bilaterally with autogenous local graft and 15 mL influx cortical bone, bone graft substitute: bilateral segmental fixation L4-L5 utilizing back to basics instrumentation and local graft harvest from decompression used for fusion. PREVIOUS MODIFIED BARIUM SWALLOW STUDY: 09/30/2016 MBS revealed moderate oropharyngeal dysphagia with overt aspiration of thin liquids. ADDITIONAL OBJECTIVE ASSESSMENT RESULTS: 10/03/2019 chest x-ray revealed no acute cardiopulmonary disease. ASSESSMENT PARAMETERS: The Patient participated in a Modified Barium Swallow (MBS) study on 10/04/2019. Dr. Garduno was the radiologist present for this evaluation. This study was recorded in the lateral view and images were sent to PACs for storage. 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 OBJECTIVE ASSESSMENT OF SWALLOW FUNCTION (QUANTITATIVE ? PER TRIAL): PENETRATION / ASPIRATION SCALE (HART): 1 = does not enter airway 2 = enters airway/above vocal folds/ejected 3 = enters airway/above vocal folds/not ejected 4 = enters airway/contacts vocal folds/ejected 5 = enters airway/contacts vocal folds/not ejected 6 = enters airway/below vocal folds/ejected 7 = enters airway/below vocal folds/not ejected despite effort 8 = enters airway/below vocal folds/no effort VIDEOFLOROSCOPIC SCALE SCORE (HART): Grade I = aspiration of material that has penetrated into the laryngeal vestibule, intact cough reflex Grade II = aspiration < 10 % of the bolus, intact cough reflex Grade III = aspiration of < 10 % of the bolus, reduced cough reflex or aspiration of > 10 % of the bolus, intact cough reflex Grade IV = aspiration of > 10 % of the bolus, reduced cough reflex PENETRATION / ASPIRATION SCALE (SCORE) WITH VIDEOFLOROSCOPIC SCALE SCORE: Thin liquid - 5 mL tsp.: 1 Thin liquids via cup (single sip): 7 ? Grade III Thin liquids via cup (single sip): 8 ? Grade III Thin liquids via straw (chin tuck): 8 ? Grade III Harrah thickened liquids via straw (single sip): 8 ? Grade III Harrah thickened liquids via straw (single sip): 2 Harrah thickened liquids via straw (single sip): 8 ? Grade III Honey thickened liquids via straw (single sip): 1 Honey thickened liquids via straw (single sip): 1 Honey thickened liquids via straw (single sip): 2 Pudding via spoon: 1 Regular textured cookie: 1 Honey thickened liquids via straw (single sip): 2 Honey thickened liquids via straw (single sip): 3 Thin liquids via straw (supraglottic swallow): 3* * denotes disjointed execution of strategy OBJECTIVE ASSESSMENT OF SWALLOW FUNCTION (QUANTITATIVE ? AGGREGATE): MODIFIED BARIUM SWALLOW IMPAIRMENT PROFILE (MBSImP) LABIAL SEAL: 0 (of 4) no labial escape TONGUE CONTROL: 2 (of 3) posterior escape < 50% BOLUS PREPARATION / MASTICATION: 0 (of 3) timely and efficient BOLUS TRANSPORT / LINGUAL MOTION: 2 (of 4) slowed motion ORAL RESIDUE: 1 (of 4) trace residue lining oral structures INITIATION OF PHARYNGEAL SWALLOW: 3 (of 4) pyriforms SOFT PALATE ELEVATION: 0 (of 4) no bolus between soft palate & pharyngeal wall LARYNGEAL ELEVATION: 2 (of 3) minimal superior movement / approximation ANTERIOR HYOID EXCURSION: 1 (of 2) partial movement EPIGLOTTIC MOVEMENT: 1 (of 2) partial inversion LARYNGEAL VESTIBULE CLOSURE: 1 (of 2) incomplete closure PHARYNGEAL STRIPPING WAVE: 1 (of 2) present / diminished PE SEGMENT OPENIN (of 3) partial distension / duration / obstruction TONGUE BASE RETRACTION: 3 (of 4) wide column of contrast PHARYNGEAL RESIDUE: 2 (of 4) collection of residue ESOPHAGEAL BOLUS CLEARANCE: could not view BOLUS RESIDUE SCALE (BRS): 4 (of 6) residue in valleculae and posterior pharyngeal wall OBJECTIVE ASSESSMENT OF SWALLOW FUNCTION (SEVERITY GRADING): DYSPHAGIA SEVERITY RATING SCALE (DSRS): 5 (moderate-severe) SWALLOWING PERFORMANCE SCALE (SPS): 5 (moderate) DYNAMIC IMAGING GRADE OF SWALLOWING TOXICITY (DIGEST) DIGEST SAFETY GRADE: Grade 3 (PAS 7-8 = chronic, not gross) DIGEST EFFICIENCY GRADE: Grade 1 (10-49%; less than half residue; any bolus type) SUMMARY DIGEST GRADE: Grade 3 (severe) OBJECTIVE ASSESSMENT OF SWALLOW FUNCTION (QUALITATIVE): ORAL PREPARATORY PHASE: mild mastication inefficiency with questionable complete bolus breakdown (difficult to fully discern upon image review); sufficient anterior oral containment during oral manipulation; preserved management of breathing / bolus formation. ORAL TRANSITIONAL PHASE: fragmented swallowing (piecemeal deglutition) with pudding / solids; sufficient oral clearance; premature posterior bolus loss with honey thickened viscosities, though overall he presented with adequate containment. PHARYNGEAL PHASE: mild pharyngeal phase dyssynchrony; reduced hyolaryngeal excursion and duration with insufficient laryngeal vestibule pressure generated to expel penetrated material; clear pharyngeal dysmotility attributed to reduced pharyngeal constrictor action leading to consolidation within the vallecula and to a lesser extent the pyriforms and upper esophageal segment opening directly contributing to post prandial penetration and subsequent aspiration; no signs of velopharyngeal impairments. ESOPHAGEAL PHASE: no obvious esophageal phase abnormalities observed. DYSPHAGIA ASSOCIATED MEDICAL CONSIDERATIONS / INTERVENTION CONSIDERATIONS: The Patient was noted to SILENTLY aspirate with thin liquids, with clinical assessment at bedside relying on identification of classic overt signs and symptoms of aspiration considered unreliable. All aspiration identified very scant in nature, with very minimal amounts of contrast identified (< 5% of bolus). I would consider the Patient to be at a higher risk of aspiration related medical complications / aspiration pneumonia / aspiration related pulmonary syndrome secondary to an altered upper aerodigestive tract associated with oropharyngeal cancer status post irradiation, the diagnosis of chronic obstructive pulmonary disease, his history of esophageal motility disorders requiring recent dilatation; presence of dysphagia with extensive pharyngeal phase impairment, the presence and extent of SILENT aspiration identified under fluoroscopy, of multiple viscosities under fluoroscopy, his potential for tracheobronchial aspiration of more dense viscosities, his compromised airway defenses (ineffective volitional cough / absent responsive cough); his advancing age, his higher prevalence of comorbidities, with no guarantee of prolonged tolerance of thickened viscosities. I would recommend continued careful monitoring of pulmonary functioning, monitoring for temperature spikes, or abnormal fatigue if any overt signs and symptoms of aspiration are noted during PO intake ingestion. I would consider this Patient to be a high risk for malnutrition and dehydration due to the extent of recommended liquid viscosities / diet texture restrictions, and the related negative impact on palatability / intake pleasure / quality of life and anticipated smaller PO intake quantities, higher risk for early satiety with recommended thicker viscosities, reduced rate of intake with slower viscosities, and the severity of dysphagia. The Patient may require intervention to reduce the risk of malnutrition, with considerations for food enrichment, oral nutritional supplementation, and possible considerations for alternative means of nutrition as needed. I would strongly consider a referral to a registered clinical dietitian if not already completed. I would consider the Patient to be more than a higher risk of non-compliance with dietary recommendations, as the Patient openly reports intentions for non-compliance with recommendations for altered viscosities due to concerns with quality of life; he was able to sufficiently state associated medical complications and awareness of current higher risk factors for aspiration; he is reasonable and rational throughout the conversation regarding his desires to continue with regular textures and thin liquids, and is open to more extensive education and intervention. INTERVENTION RECOMMENDATIONS AND CONSIDERATIONS: The Patient requires intensive skilled speech-language intervention targeting diet texture management and training / implementation of recommended compensatory strategies; training / implementation of recommended oropharyngeal strengthening exercises to prevent continued loss of oropharyngeal range of motion status post radiation intervention; training and implementation of a home oral care protocol to reduce the effects of xerostomia and improve / maintain the integrity of the oral mucosa reducing the risk of aspiration related pulmonary complications; and Patient / caregiver education regarding post-irradiation dysphagia and associated symptomology. POST ASSESSMENT EDUCATION: Results and recommendations were discussed with the Patient immediately following MBS completion, with the Patient verbalizing understanding and agreement with all recommendations and education provided. We discussed factors impacting effects of aspiration, to include: the quantity of aspiration, the depth of aspiration (trachea or distal airways), and the physical properties of the aspirate. We discussed consequences of oropharyngeal dysphagia, to include pulmonary complications from tracheobronchial aspiration; potential for airway obstruction / asphyxiation; inadequate oral intake because of dysphagia with reduced liquid intake resulting in dehydration and reduced caloric intake resulting in unintentional and potentially medically complicating loss of weight; possible complications in overall course of care with later discharge from acute admissions / increased length of hospitalizations, increased likelihood for discharge to [facility], and overall worse rehabilitation outcomes; and increased risk for mortality / . DIET TEXTURE RECOMMENDATIONS: Will clinically recommend a pureed textured (IDDSI: 4), honey thickened liquid (IDDSI: 3) diet. As is his rights, I will refrain on altering his diet textures per his request. RECOMMENDED COMPENSATORY STRATEGIES: Distant supervision, consider cutting tougher textures into bite sized pieces, reduced bolus volume / rate of ingestion, liquid chaser at reasonable intervals, seated upright at 90 degrees during PO intake, remain upright for 30-60 minutes post meal (GERD precaution), medications one at a time with purees. I would consider implementation of the supraglottic swallow pending training. IMAGE COUNT: [id number] Gian Deutsch M.A., CCC-DIRECTOR OF STRATEGIC MARKETING, CBIS MBSImP Certified, LSVT Certified [facility] Speech-Language Pathology [email or web address]
[2019-10-04] MEDS: Tamsulosin HCl 0.4 MG Capsule PO (17:05)
[2019-10-04 17:07] VITALS: BP 127/60
[2019-10-04 17:15] VITALS: O2SAT 96
[2019-10-04 22:00] VITALS: BP 127/60; PULSE 86; RESP 18; TEMP 36.8; O2SAT 94
[2019-10-04] MEDS: Mirtazapine 15 MG Tablet PO (22:10)
[2019-10-04] MEDS: Acetaminophen 500 MG Tablet 1000 MG PO (22:10)
[2019-10-04] MEDS: oxyCODONE 5 MG Tablet PO (22:11)
[2019-10-05 05:57] LABS: Hematocrit 33.6 % (40-54); Hemoglobin 10.8 g/dL (13.0-16.5)
[2019-10-05] MEDS: Gabapentin 300 MG Capsule PO ×3 (05:57→21:33)
[2019-10-05] MEDS: oxyCODONE 5 MG Tablet PO ×2 (05:57→10:17)
[2019-10-05] MEDS: Sucralfate 1 GM Tablet PO ×4 (05:57→21:34)
[2019-10-05] MEDS: Midodrine HCl 5 MG Tablet 2.5 MG PO ×2 (05:59→16:46)
[2019-10-05 07:55] VITALS: BP 142/74; PULSE 81; RESP 18; TEMP 36.7; O2SAT 93
[2019-10-05] MEDS: Pantoprazole Sodium 40 MG Tablet PO ×2 (10:17→21:33)
[2019-10-05] MEDS: Ascorbic Acid 500 MG Tablet 1000 MG PO (10:17)
[2019-10-05] MEDS: Loratadine 10 MG Tablet PO (10:17)
[2019-10-05] MEDS: Acetaminophen 500 MG Tablet 1000 MG PO ×2 (10:17→21:33)
[2019-10-05] MEDS: Atenolol 25 MG Tablet 12.5 MG PO (10:17)
--- NOTE | 2019-10-05 11:39 | CASEMGMT ---
Social Work IDT met with patient for Team Meeting. Discussed patient's progress in therapy. Pt walking 330 ft with FWW at SBA, completed 13 steps SBA to CGA, SBA fro transfers, set upf/SBA for all ADLS while adhering to back precautions. Pt is sleeping better. ST completed MBS and pt is silently aspirating on thin liquids and regular texture foods. It was recommended for puree, honey thick diet and pt refused and chose to remain with regular textures, thin liquids. ST will remain and work with pt on swallowing exercises to assist in reducing risk for aspiration. Explained Medicare coverage and ELOS 12 days with DC 10/13. Will ReTeam next week. Will continue to follow. Hansa Kerr, SENIOR HR MANAGER CHIEF CREATIVE OFFICER
--- NOTE | 2019-10-05 11:49 | PCM.PROGNOTE ---
Patient Problems: Active and Suspected Problems (Last Reviewed 09/08/17 @ 10:24 by Abhay Casillas) Benign neoplasm of colon (Acute) Hypertrophic obstructive cardiomyopathy (HOCM) (Acute) Subjective: The patient was seen on team rounds today. There was no family present at rounds. Afebile VSS Maintaining appropriate oxygen saturation on RA Oral intake is good Discussed with nursing - no problems that need addressed Reviewed the PT/OT notes Medication list reviewed. All lab was personally reviewed. Hemoglobin is 10.8 today and stable. Results of the modified barium swallow done on 10/04/2019 were reviewed. The patient does have dysphagia and the speech therapist recommended pur?ed textures with honey thick liquids but the patient states that he does not want this and he will continue with thin liquids and regular textured food. He was informed that he is at high risk for aspiration and aspiration pneumonia. He reports that he is sleeping very well. Pain is adequately controlled. No complaints. Denies shortness of breath at rest. No cough. Post void residuals are less than 200. Denies dysuria or urinary frequency/urgency. alert, oriented X3. NAD. sitting in the chair at the bedside. Good mood, making jokes and witty remarks Lungs - diminished but CTA Heart RRR , no gallop abd - soft, NT, ND, bowels sounds heard in all 4 quadrants no edema Impressions 1. S/P laminectomy/fusion 2. Chronic anemia with heme positive stool on PPI and Carafate. Hemoglobin is stable. 3. BPH with urinary retention, started on Flomax at admission. No significant residuals with discontinuation of the Zapata catheter. 4. History of supraglottic laryngeal cancer treated with chemotherapy and radiation. Has had esophageal stricture and has had dilation x1 approximately 1 year ago. Because of the abnormal results on the modified barium swallow I did recommend to him that he follow-up with the commutator undercutter for possible repeat EGD going forward. 5. COPD-better air exchange with addition of a Serevent inhaler to his drug regimen. 6. Chronic pruritus with eosinophilia on his CBC-started on an antihistamine. Will recheck CBC with differential in a few more days I recommended to him that he follow-up with his commutator undercutter for possible EGD to see if the dysphagia can improve with dilatation. - Physical Exam Vitals/I&O's: Vital Signs Temp Pulse Resp BP Pulse Ox 98.0 F 81 18 142/74 H 93 10/05/19 07:55 10/05/19 07:55 10/05/19 07:55 10/05/19 07:55 10/05/19 07:55 Oxygen Delivery Method Room Air Weight: 160 lb 4.417 oz Body Mass Index (BMI) 21.9 Intake and Output for Last 24 Hours 10/03/19 10/04/19 10/05/19 23:59 23:59 23:59 Intake Total 1410 / 1410 1640 / 1640 240 / 240 Output Total 1300 / 1300 1100 / 1100 225 / 225 Balance 110 / 110 540 / 540 15 / 15 Microbiology Past 72 Hours 10/02/19 18:40 Stool Stool Occult Blood (CHERY) - Final Occult Blood Positive Laboratory Results 10/05/19 05:46: Hgb 10.8 L, Hct 33.6 L Current Medications Acetaminophen (Tylenol) 1,000 mg PO Q12 [facility] Last Admin: 10/05/19 10:17 Dose: 1,000 mg Documented by: Albuterol Sulfate (Ventolin Hfa (Sp)) 2 puff INHALATION Q4H PRN PRN PRN Reason: SOB &/OR WHEEZING Last Admin: 10/02/19 21:07 Dose: 2 puff Documented by: Albuterol Sulfate (Ventolin Hfa (Sp)) 2 puff INHALATION DAILY [facility] Last Admin: 10/05/19 10:19 Dose: 2 puff Documented by: Ascorbic Acid (Vitamin C) 1,000 mg PO DAILY@0800 [facility] Last Admin: 10/05/19 10:17 Dose: 1,000 mg Documented by: Atenolol (Tenormin (Beta Daniel)) 12.5 mg PO DAILY [facility] Last Admin: 10/05/19 10:17 Dose: 12.5 mg Documented by: Gabapentin (Neurontin) 300 mg PO TID [facility] Last Admin: 10/05/19 05:57 Dose: 300 mg Documented by: Loratadine (Claritin) 10 mg PO DAILY [facility] Last Admin: 10/05/19 10:17 Dose: 10 mg Documented by: Midodrine (Proamatine) 2.5 mg PO BID@0600,1800 [facility] Last Admin: 10/05/19 05:59 Dose: 2.5 mg Documented by: Mirtazapine (Remeron) 15 mg PO QHS [facility] Last Admin: 10/04/19 22:10 Dose: 15 mg Documented by: Multivitamins (Allbee W/C Caplet, Thera B Comp/C) [facility] Ondansetron HCl (Zofran Odt) 4 mg PO Q6H PRN PRN PRN Reason: NAUSEA/VOMITING Last Admin: 10/01/19 18:11 Dose: 4 mg Documented by: Oxycodone HCl (Oxyir) 5 mg PO Q4H PRN PRN PRN Reason: Pain Score 1-10/10 Last Admin: 10/05/19 10:17 Dose: 5 mg Documented by: Pantoprazole Sodium (Protonix) 40 mg PO BID [facility] Last Admin: 10/05/19 10:17 Dose: 40 mg Documented by: Salmeterol Xinafoate (Serevent Diskus) 1 puff INHALATION Q12 [facility] Last Admin: 10/05/19 10:18 Dose: 1 puff Documented by: Sucralfate (Carafate) 1 gm PO 1HR_ACHS [facility] Last Admin: 10/05/19 11:39 Dose: 1 gm Documented by: Tamsulosin HCl (Flomax) 0.4 mg PO DAILY@1730 [facility] Last Admin: 10/04/19 17:05 Dose: 0.4 mg Documented by: Vitamin E (Vitamin E) 400 [facility] Medical Necessity - Tobacco Use Smoking Status: Former smoker Tobacco Use: Non-smoker - he quit in 2002 but, prior to that he smoked up to 3 PPD for 48 years, Chew - in the past but, quit this as well Assessment/Plan All Active Problems (Last Reviewed 09/08/17 @ 10:24 by Abhay Casillas) Benign neoplasm of colon (Acute) Hypertrophic obstructive cardiomyopathy (HOCM) (Acute) Urinary retention (Acute) Dehydration (Resolved) Hypophosphatemia (Resolved) Code Visit Inpatient E&M: 55498 Subs Hosp L2
[2019-10-05] MEDS: Tamsulosin HCl 0.4 MG Capsule PO (16:47)
[2019-10-05 19:00] VITALS: BP 134/78; PULSE 73; RESP 16; TEMP 36.7; O2SAT 94
[2019-10-05] MEDS: Mirtazapine 15 MG Tablet PO (21:34)
[2019-10-06] MEDS: Midodrine HCl 5 MG Tablet 2.5 MG PO (06:39)
[2019-10-06] MEDS: Sucralfate 1 GM Tablet PO ×4 (06:40→19:46)
[2019-10-06] MEDS: Gabapentin 300 MG Capsule PO ×3 (06:40→19:46)
[2019-10-06 08:02] VITALS: BP 122/68; PULSE 79; RESP 18; TEMP 36.7; O2SAT 90
[2019-10-06] MEDS: Pantoprazole Sodium 40 MG Tablet PO ×2 (09:11→19:46)
[2019-10-06] MEDS: Loratadine 10 MG Tablet PO (09:11)
[2019-10-06] MEDS: Atenolol 25 MG Tablet 12.5 MG PO (09:11)
[2019-10-06] MEDS: Ascorbic Acid 500 MG Tablet 1000 MG PO (09:12)
[2019-10-06] MEDS: Acetaminophen 500 MG Tablet 1000 MG PO ×2 (09:12→19:46)
--- NOTE | 2019-10-06 15:02 | CASEMGMT ---
Social Work Pt meeting with Palliative 10/09 at 9 am. Hansa Kerr, BANK MANAGER HEALTH INFORMATION ADMINISTRATOR
[2019-10-06] MEDS: Tamsulosin HCl 0.4 MG Capsule PO (16:39)
[2019-10-06 17:56] VITALS: BP 159/67; PULSE 81; RESP 18; TEMP 36.7; O2SAT 97
[2019-10-06 19:00] VITALS: BP 159/67; PULSE 81; RESP 18; TEMP 36.7; O2SAT 97
[2019-10-06] MEDS: Mirtazapine 15 MG Tablet PO (19:46)
[2019-10-07] MEDS: Midodrine HCl 5 MG Tablet 2.5 MG PO ×2 (06:49→16:50)
[2019-10-07] MEDS: Sucralfate 1 GM Tablet PO ×4 (06:49→22:00)
[2019-10-07] MEDS: oxyCODONE 5 MG Tablet PO ×2 (06:49→22:03)
[2019-10-07] MEDS: Gabapentin 300 MG Capsule PO ×3 (06:49→22:01)
[2019-10-07 07:57] VITALS: BP 162/95; PULSE 88; RESP 18; TEMP 36.7; O2SAT 97
[2019-10-07] MEDS: Acetaminophen 500 MG Tablet 1000 MG PO ×2 (08:05→22:01)
[2019-10-07] MEDS: Ascorbic Acid 500 MG Tablet 1000 MG PO (08:05)
[2019-10-07] MEDS: Atenolol 25 MG Tablet 12.5 MG PO (08:06)
[2019-10-07] MEDS: Loratadine 10 MG Tablet PO (08:06)
[2019-10-07] MEDS: Pantoprazole Sodium 40 MG Tablet PO ×2 (08:06→22:01)
[2019-10-07] MEDS: Tamsulosin HCl 0.4 MG Capsule PO (16:50)
[2019-10-07 16:52] VITALS: BP 123/81
[2019-10-07 22:00] VITALS: BP 123/81; PULSE 82; RESP 16; TEMP 36.6; O2SAT 93
[2019-10-07] MEDS: Mirtazapine 15 MG Tablet PO (22:00)
[2019-10-08] MEDS: Gabapentin 300 MG Capsule PO ×3 (06:16→21:30)
[2019-10-08] MEDS: Sucralfate 1 GM Tablet PO ×4 (06:17→21:34)
[2019-10-08 07:21] VITALS: BP 128/73; PULSE 82; RESP 18; TEMP 36.6; O2SAT 93
[2019-10-08] MEDS: Vitamin E 400 UNITS Capsule PO (07:27)
[2019-10-08] MEDS: Ascorbic Acid 500 MG Tablet 1000 MG PO (07:27)
[2019-10-08] MEDS: Vitamin B Comp W-C Capsule 1 CAP PO (07:27)
[2019-10-08] MEDS: Pantoprazole Sodium 40 MG Tablet PO ×2 (07:28→21:29)
[2019-10-08] MEDS: Atenolol 25 MG Tablet 12.5 MG PO (07:29)
[2019-10-08] MEDS: Acetaminophen 500 MG Tablet 1000 MG PO ×2 (07:30→21:29)
[2019-10-08] MEDS: Loratadine 10 MG Tablet PO (07:31)
--- NOTE | 2019-10-08 16:11 | NURSING ---
ambulated in blas with staff
[2019-10-08] MEDS: Tamsulosin HCl 0.4 MG Capsule PO (16:59)
[2019-10-08] MEDS: Midodrine HCl 5 MG Tablet 2.5 MG PO (16:59)
[2019-10-08 20:27] VITALS: BP 93/49; PULSE 84; RESP 16; TEMP 36.8; O2SAT 93
[2019-10-08] MEDS: Mirtazapine 15 MG Tablet PO (21:29)
[2019-10-08] MEDS: oxyCODONE 5 MG Tablet PO (21:29)
[2019-10-09 05:00] VITALS: BP 110/60
[2019-10-09] MEDS: Gabapentin 300 MG Capsule PO ×3 (05:17→21:22)
[2019-10-09] MEDS: Sucralfate 1 GM Tablet PO ×4 (05:22→21:22)
[2019-10-09] MEDS: Midodrine HCl 5 MG Tablet 2.5 MG PO ×2 (05:41→16:40)
[2019-10-09 06:00] LABS: Absolute Lymphocyte Count 0.85 X10^3/uL (0.83-4.51); Absolute Neutrophil Count 6.9 X10^3/uL (2.0-7.7); Basophil# 0.06 X10^3/uL; Basophil% 0.7 % (0-1); Eosinophil# 0.58 X10^3/uL; Eosinophils% 6.3 % (0-5); Hematocrit 34.2 % (40-54); Hemoglobin 10.5 g/dL (13.0-16.5); Lymphocyte # 0.85 X10^3/ul (4.0); Lymphocyte % 9.3 % (19-41); Mean Corp Hgb Conc 30.7 g/dL (32-36); Mean Corpuscular Hgb 29.1 pg (27.0-32.0); Mean Corpuscular Volume 94.7 fL (80-94); Mean Platelet Vol. 10.2 fl (6.2-12.0); Monocyte# 0.56 X10^3/uL; Monocyte% 6.1 % (0-10); NRBC Flagged by Analyzer 0 % (0-5); Neutrophil # 6.89 X10^3/uL (2.7-7.7); Neutrophil % 75.2 % (47-70); Platelet Count 390 K/mm3 (150-450); RBC Distribution Width CV 13.4 % (11.6-14.6); Red Blood Count 3.61 M/mm3 (4.6-6.2); White Blood Count 9.2 K/mm3 (4.4-11.0)
[2019-10-09 06:04] LABS: Anion Gap 4 (5-15); BUN 40 mg/dL (7-18); BUN/Creat Ratio 24.4 RATIO (10-20); Calcium,Total 9.3 mg/dL (8.5-10.1); Chloride 106 mmol/L (98-107); Creatinine, Serum 1.64 mg/dL (0.70-1.30); EST Glomerular Filtration Rate 44 mL/min (>60); Est Glom Filt Rate - Afr Amer 53 mL/min (>60); Estimated Creatinine Clearance 39.11 ml/min; Glucose 94 mg/dL (74-106); Sodium Level 139 mmol/L (136-145)
[2019-10-09 07:10] VITALS: BP 110/60; PULSE 78; RESP 18; TEMP 36.7; O2SAT 93
[2019-10-09] MEDS: Vitamin E 400 UNITS Capsule PO (09:40)
[2019-10-09] MEDS: Atenolol 25 MG Tablet 12.5 MG PO (09:40)
[2019-10-09] MEDS: Loratadine 10 MG Tablet PO (09:40)
[2019-10-09] MEDS: Vitamin B Comp W-C Capsule 1 CAP PO (09:40)
[2019-10-09] MEDS: Ascorbic Acid 500 MG Tablet 1000 MG PO (09:40)
[2019-10-09] MEDS: Pantoprazole Sodium 40 MG Tablet PO ×2 (09:40→21:22)
[2019-10-09] MEDS: Acetaminophen 500 MG Tablet 1000 MG PO ×2 (09:41→21:22)
--- NOTE | 2019-10-09 12:14 | CASEMGMT ---
Social Work Pt met with Palliative Medicine on this date and stated he needed more time to think about services. Pt agreed to f/u call from Palliative in two weeks. Pt requested to DC on 10/[address] whitaker. Hansa Kerr, JACK ROEW
[2019-10-09] MEDS: Tamsulosin HCl 0.4 MG Capsule PO (16:40)
--- NOTE | 2019-10-09 16:49 | CASEMGMT ---
Social Work Met with patient to f/u on DC plans. Pt felt he was still weak and may not be ready to DC home alone at this time. Pt inquired about TCU. Explained Medicare coverage. Pt requested referral to TCU - referral made. Will continue to follow. Hansa Kerr, MANAGER HOSPITALITY PLASTERING CONTRACTOR
--- NOTE | 2019-10-09 17:48 | PCM.PN.BLA ---
Progress Note Afebile VSS Maintaining appropriate oxygen saturation on RA Oral intake is has improved since admission. Weight has decreased from 161 pounds and 9.6 ounces on to 156 pounds and 5 ounces today?...... weights did not seem reliable to me Discussed with nursing - no problems that need addressed Reviewed the PT/OT/ST notes, he is very motivated to complete his therapy and return home. He is progressing. Medication list reviewed. All lab was personally reviewed. The hemoglobin is stable at 10.5. White blood cell count is within normal limits but there is [id number] immature granulocytes. Platelets are within normal limits. The creatinine today is 1.64, up from 1.29 on 10/03/2019. He states that he does not notice his breathing is any better since addition of the Serevent inhaler to his drug regimen however his air exchange is much better and he no longer has any wheezing. He also tells me that he still has itching despite the addition of the antihistamine for eosinophilia. His affect is generally flat and he is not too optimistic about anything Denies any problems with bowel function. Denies nausea/vomiting. Pain is adequately controlled. Feels like he is completely emptying his bladder when he urinates. Not following dietary recommendations for thickened liquids Alert and oriented x3, flat affect, appropriate Lungs-diminished in the upper lobes bilaterally with better air exchange in the bases, no wheezing, no rhonchi, no Rales Heart-regular rate and rhythm, no gallop Abdomen-soft, nontender, nondistended, bowel sounds in all 4 quadrants No peripheral edema Incision is intact without periwound erythema and without discharge Impressions 1. MAGDALENA - will start doing post void residuals and reinsert Zapata if > 400. If he does not have large residual will check a US of the kidneys and bladder. Check a UA today. 2. chronic pruritus with increased eosinophils - no improvement with an antihistamine and the eosinophils are still 6.3% so will DC the antihistamine. I recommended he follow up with an tactical intelligence officer 3. A/P lumbar laminectomy 4. urine retention at admission - was started on Flomax - will continue 5. Hemoccult positive stool with a stable hemoglobin-continue PPI and Carafate Post void residual x3 UA with urine culture today If the urine residual is greater than 400 cc will reinsert Zapata catheter DC the antihistamine Continue Serevent since he no longer has wheezing and he has much improved air exchange since the bronchodilator was initiated Continue mirtazapine for chronic depression and to stimulate appetite and promote better sleep habits Code Visit Inpatient E&M: 75946 Subs Hosp L2
[2019-10-09 21:10] VITALS: BP 131/84; PULSE 77; RESP 16; TEMP 36.6; O2SAT 93
[2019-10-09] MEDS: oxyCODONE 5 MG Tablet PO (21:21)
[2019-10-09] MEDS: Mirtazapine 15 MG Tablet PO (21:22)
--- NOTE | 2019-10-10 02:49 | NURSING ---
Reviewed and agree with COMPUTING CONSULTANT documentation.
[2019-10-10 05:53] LABS: Albumin, Serum 2.7 g/dL (3.2-5.0); BUN 48 mg/dL (7-18); BUN/Creat Ratio 27.1 RATIO (10-20); Calcium,Total 9.1 mg/dL (8.5-10.1); Chloride 105 mmol/L (98-107); Creatinine, Serum 1.77 mg/dL (0.70-1.30); EST Glomerular Filtration Rate 40 mL/min (>60); Est Glom Filt Rate - Afr Amer 48 mL/min (>60); Estimated Creatinine Clearance 35.05 ml/min; Glucose 92 mg/dL (74-106); Phosphorus 4.3 mg/dL (2.5-4.9); Sodium Level 139 mmol/L (136-145)
[2019-10-10] MEDS: Gabapentin 300 MG Capsule PO ×3 (07:13→21:12)
[2019-10-10] MEDS: Midodrine HCl 5 MG Tablet 2.5 MG PO ×2 (07:13→18:17)
[2019-10-10] MEDS: Sucralfate 1 GM Tablet PO ×4 (07:14→21:12)
--- NOTE | 2019-10-10 07:20 | NURSING ---
2nd pvr completed and was 225cc voided and 436cc bladder scan value, pt refused to have thomas inserted at this time, rn aware
[2019-10-10 08:13] VITALS: BP 125/82; PULSE 86; RESP 17; TEMP 36.8; O2SAT 95
--- NOTE | 2019-10-10 09:00 | NURSING ---
jose community health representative and dr jose vasquez speak to pt. per pt he does not feel ready to go home home yet. he would like to go to tcu if able. mod i status d/c'd and pt informed to use call light for any transfers or needs. voiced understanding.
--- NOTE | 2019-10-10 09:30 | PCM.PN.BLA ---
Progress Note Afebrile Vital signs stable Maintaining appropriate oxygen saturation on room air without tachypnea or air hunger. Oral intake dropped off yesterday and he only was recorded 740 cc. Post void bladder residual was 436 this morning. Patient refused a Zapata catheter. All lab was personally reviewed. BUN today is 48, up from 48 on 10/09/2019 and up from 28 on 10/03/2019. Creatinine today is 1.77, up from 1.29 on 10/03/2019. On 10/09/2027 it was 1.64. Denies dysuria. No fevers and no chills. No abdominal pain. Denies SOB, no cough. He tells me he feels tired and weak. The last time we talked to Alex about plans for DC he wanted to go home. He has been progressing in PT/OT and doing well so he was made mod I in preparation for DC to go to his doctor's appt. Yesterday afternoon the SW met with him to discuss equipment he would need and HHC. He told her he did not feel ready to go yet. He actually told me today he felt afraid to go home. The director nursing service and I addressed this with him today. He would like to go to TCU and see if he can get stronger prior to going home. The Mod I was discontinued. The plan now is for him to go his doctor's appt on and then come back to TCU. Alert, oriented x3, lying in bed in no apparent distress Lungs-diminished but clear without wheezing Abdomen-soft, normal bowel sounds, positive bladder distention, nontender No peripheral edema Impressions 1. Acute kidney injury-more likely than not secondary to combination of dehydration and urine retention........Will not let us insert a Zapata, I explained the consequences of this and he understands. He is agreeable to increasing the Flomax dose but, understands this is a Catch 22.....this could increase the orthostatic sx. I am assuming the urine retention is due to BPH but, he may have neurogenic bladder. Will order an US of the kidneys and the bladder and also a urine sodium and creat. Consider urology consult when we have the results of testing collected. Will hold off on increasing Flomax at this time. 2. orthostatic hypotension - continue the Midodrin. Encouraged him to drink more fluids today and everyday. Await the results of the FENA.....if it is < 1% will start an IV. Check orthostatics now. He seems to think that the periodic dizziness is due to a pinched nerve in his neck. We had a talk about the autonomic nervous system and why he gets dizzy when he stands too fast. We talked about Midodrin and how it works and also the importance of staying well hydrated. He seemed to understand. We also discussed the ARF and how this is more likely than not due to combined dehydration plus urine retention. He admits that he does not drink enough. He was started on Remeron at admission which was 8 days ago. He is sleeping better and his appetite has improved somewhat but fluid intake is erratic. It is too early to expect significant improvement in the depressed mood. UA and urine culture were ordered yesterday but he has not saved a urine for us to send to the lab. MOD I discontinued and plan to DC to TCU on . STROKE Vital Signs/Narrative: Vital Signs Temp Pulse Resp BP Pulse Ox 10/10/19 08:13 98.2 F 86 17 125/82 H 95 Code Visit Inpatient E&M: 09698 Subs Hosp L2
[2019-10-10] MEDS: Loratadine 10 MG Tablet PO (09:53)
[2019-10-10] MEDS: Acetaminophen 500 MG Tablet 1000 MG PO ×2 (09:53→21:12)
[2019-10-10] MEDS: Vitamin E 400 UNITS Capsule PO (09:53)
[2019-10-10] MEDS: Pantoprazole Sodium 40 MG Tablet PO ×2 (09:53→21:12)
[2019-10-10] MEDS: Ascorbic Acid 500 MG Tablet 1000 MG PO (09:53)
[2019-10-10] MEDS: Vitamin B Comp W-C Capsule 1 CAP PO (09:53)
[2019-10-10] MEDS: Atenolol 25 MG Tablet 12.5 MG PO (09:54)
[2019-10-10 11:32] VITALS: BP 99/62; BP 99/69; BP 99/72; PULSE 87; PULSE 89; PULSE 95
--- NOTE | 2019-10-10 13:00 | US_ITS ---
STUDY: RENAL ULTRASOUND - COMPLETE REASON FOR EXAM: Male, 79 years old. MAGDALENA WITH URINE RETENTION TECHNIQUE: Ultrasound evaluation of the kidneys was performed with real-time and static antunez-scale imaging. COMPARISON: None. FINDINGS: RIGHT KIDNEY: Normal location of the right kidney, which is normal in size. The right kidney measures 9.8 cm x 6.5 cm x 4.3 cm. There is a normal cortex of the right kidney. The renal cortex measures 1.2 cm. Multiple cysts are seen. The largest measures 4.6 cm x 4.6 x 4.1 cm. This is in the upper pole. There are no right renal calculi. There is no right hydronephrosis. DISTAL RIGHT URETER: There is non-visualization of the distal right ureter. There is no demonstrated right ureterovesical junction calculus. There is a visualized right ureteral jet. LEFT KIDNEY: Normal location of the left kidney, which is normal in size. The left kidney measures 9.9 cm x 5.4 cm x 5.6 cm. There is a normal cortex of the left kidney. The renal cortex measures 1.3 cm. Multiple cysts are seen. The largest is in the midportion of the kidney and measures 9.2 cm by 8.8 cm x 6.0 cm. Multiple tiny nonobstructive intrarenal calculi are seen the largest measuring 8 mm. There is no left hydronephrosis. DISTAL LEFT URETER: There is non-visualization of the distal left ureter. There is no demonstrated left ureterovesical junction calculus. There is a visualized left ureteral jet. BLADDER: The distended urinary bladder has a volume of 404 ml. The empty urinary bladder has a volume of 233 ml. There is a normal wall thickness of the distended urinary bladder. There is no demonstrated mass within the urinary bladder. There are no demonstrated bladder calculi. US/Kidney and Bladder IMPRESSION: Multiple bilateral renal cysts. Multiple small left intrarenal calculi. Post void residual. Electronically Signed: Kb Garduno, at 15:41 EST , Service support ,
[2019-10-10 13:09] LABS: Color, Urine Yellow (Yellow); Glucose, Dipstick Normal (Normal); Ketone-Dipstick Negative (Negative); Leukocyte Esterase-Dipstick Negative /ul (Negative); Mucous, Urine 0 SEEN /hpf (<or=2+); Nitrite-Dipstick Negative (Negative); Occult Blood-Urine Negative /ul (Negative); Protein-Dipstick Negative (Negative); Red Blood Cells-Urine 0 SEEN /hpf (0-5); Urine Bilirubin Dipstick Negative (Negative); Urine Clarity Sl. Cloudy (Clear); Urine Urobilinogen Normal (Normal); White Blood Cells 0 SEEN /hpf (0-5)
[2019-10-10 13:15] LABS: Bacteria RARE /hpf (None Seen); Squamous Epithelial Cells - UA 0-5 SEEN /hpf (0-5)
[2019-10-10 13:33] LABS: Urine Sodium 78 mmol/L (Not Establ.)
--- NOTE | 2019-10-10 15:00 | NURSING ---
pt had voided 200cc clear yellow urine without diff. bladder scanned for 577cc. dr garcia aware and order for thomas cath. pt agreeable and placed without difficulty and drained 500cc clear yellow urine.
--- NOTE | 2019-10-10 15:02 | CASEMGMT ---
Social Work TCU accepted pt. Spoke with pt and agreed and would like to DC 10/[address] whit[address]. CANDIT agreeable. Plan: DC to TCU 10/12 JACK ValladaresW
--- NOTE | 2019-10-10 17:00 | NURSING ---
pt called out. states i changed my mind, i dont want this catheter bag hanging from me anymore. went in and discussed with pt and he states he would like thomas cath d/c'd that he does not want it anymore. joel mclaughlin made awre. thomas cath d/c'd. will pass along to notify dr garcia in am.
[2019-10-10 18:14] VITALS: BP 111/69; PULSE 90; RESP 16; TEMP 36.8; O2SAT 95
[2019-10-10] MEDS: Tamsulosin HCl 0.4 MG Capsule PO (18:17)
[2019-10-10 21:00] VITALS: BP 117/70; PULSE 84; RESP 18; TEMP 36.8; O2SAT 92
[2019-10-10] MEDS: oxyCODONE 5 MG Tablet PO (21:12)
[2019-10-10] MEDS: Mirtazapine 15 MG Tablet PO (21:12)
--- NOTE | 2019-10-11 01:19 | NURSING ---
reviewed and agree with WAGON DRIVER SALESPERSON documentation.
[2019-10-11] MEDS: Gabapentin 300 MG Capsule PO ×3 (05:33→21:35)
[2019-10-11] MEDS: Midodrine HCl 5 MG Tablet 2.5 MG PO ×2 (05:34→19:24)
[2019-10-11 05:54] LABS: Albumin, Serum 2.8 g/dL (3.2-5.0); BUN 57 mg/dL (7-18); BUN/Creat Ratio 31.3 RATIO (10-20); Calcium,Total 9.3 mg/dL (8.5-10.1); Chloride 106 mmol/L (98-107); Creatinine, Serum 1.82 mg/dL (0.70-1.30); EST Glomerular Filtration Rate 39 mL/min (>60); Est Glom Filt Rate - Afr Amer 47 mL/min (>60); Estimated Creatinine Clearance 34.09 ml/min; Glucose 95 mg/dL (74-106); Phosphorus 4.3 mg/dL (2.5-4.9); Potassium 5.4 mmol/L (3.5-5.1); Sodium Level 139 mmol/L (136-145)
[2019-10-11] MEDS: Sucralfate 1 GM Tablet PO ×4 (06:33→21:35)
[2019-10-11 07:00] VITALS: BP 104/68; BP 105/68; BP 89/44; PULSE 81; PULSE 84; PULSE 89
[2019-10-11] MEDS: Vitamin B Comp W-C Capsule 1 CAP PO (08:04)
[2019-10-11] MEDS: Vitamin E 400 UNITS Capsule PO (08:04)
[2019-10-11] MEDS: Loratadine 10 MG Tablet PO (08:04)
[2019-10-11] MEDS: Ascorbic Acid 500 MG Tablet 1000 MG PO (08:04)
[2019-10-11] MEDS: Acetaminophen 500 MG Tablet 1000 MG PO ×2 (08:05→21:36)
[2019-10-11] MEDS: Pantoprazole Sodium 40 MG Tablet PO ×2 (08:05→21:35)
[2019-10-11] MEDS: Atenolol 25 MG Tablet 12.5 MG PO (08:05)
[2019-10-11 09:05] VITALS: BP 105/68; PULSE 81; RESP 16; TEMP 36.6; O2SAT 92
[2019-10-11 09:52] VITALS: O2SAT 92
[2019-10-11] MEDS: Tamsulosin HCl 0.4 MG Capsule PO ×2 (13:15→21:35)
--- NOTE | 2019-10-11 13:54 | CON.PCM_ITS ---
Consultation - Renal 10/11/19 PCP/ Referring MD: Requesting physician: Aida Mccollum DO Primary care physician: Anderson Crowley MD Reason for Consultation:: MAGDALENA on CKD stage 3 - History of Present Illness History of Present Illness: The patient is a 79 year old M admitted to on 10/01/19 following laminectomy for DJD on 09/28/[address] Martell at [facility]. Consulted for MAGDALENA on CKD. Baseline creatinine appears to be at 1.2 with Creatinine 1.29 eGFR 57cc/min on 10/03/19 progressed to 1.82 eGFR 39cc/min on 10/11 with potassium of 5.4. He drinks powerade, gatorade. He has a history of esophageal/laryngeal cancer s/p radiation and chemotherapy in 2006 with residual neuropathy in feet and autonomic dysfunction midodrine for several years. He sometimes has trouble with swallowing food/liquids/pills but better after his esophageal dilatation. He has lightheadedness on occasion, no syncope, no palpitations. He denies chest pain/pressure. No history of diabetes, CAD that he is aware of. He does have COPD and is a former smoker. He is not on oxygen at home. He has a history of weak urine stream, hesitancy, dribbling. Renal US on 09/13/27 did not show hydronephrosis but had residual urine of 233cc. He had bladder scans done with 124cc postvoid. His flomax dose was increased to twice a day. Refuses indwelling thomas due to discomfort. He had 900cc urine out over 2 hrs with thomas placement yesterday. - Allergies Allergies: Allergies morphine Adverse Reaction (Verified 08/25/18 09:30) Vomiting DUST Allergy (Uncoded 11/14/16 10:43) Other SNEEZING MOLD Allergy (Uncoded 11/14/16 10:43) Other - Current Medications Current Medications: Current Medications Acetaminophen (Tylenol) 1,000 mg PO Q12 [facility] Last Admin: 10/11/19 08:05 Dose: 1,000 mg Documented by: Albuterol Sulfate (Ventolin Hfa (Sp)) 2 puff INHALATION Q4H PRN PRN PRN Reason: SOB &/OR WHEEZING Last Admin: 10/02/19 21:07 Dose: 2 puff Documented by: Albuterol Sulfate (Ventolin Hfa (Sp)) 2 puff INHALATION DAILY [facility] Last Admin: 10/11/19 08:06 Dose: 2 puff Documented by: Ascorbic Acid (Vitamin C) 1,000 mg PO DAILY@0800 [facility] Last Admin: 10/11/19 08:04 Dose: 1,000 mg Documented by: Atenolol (Tenormin (Beta Daniel)) 12.5 mg PO DAILY [facility] Last Admin: 10/11/19 08:05 Dose: 12.5 mg Documented by: Bisacodyl (Dulcolax) 10 mg PO DAILY PRN PRN PRN Reason: Constipation Gabapentin (Neurontin) 300 mg PO TID [facility] Last Admin: 10/11/19 13:15 Dose: 300 mg Documented by: Loratadine (Claritin) 10 mg PO DAILY [facility] Last Admin: 10/11/19 08:04 Dose: 10 mg Documented by: Magnesium Hydroxide (Milk Of Magnesia) 30 ml PO DAILY PRN PRN Reason: Constipation Midodrine (Proamatine) 2.5 mg PO BID@0600,1800 [facility] Last Admin: 10/11/19 05:34 Dose: 2.5 mg Documented by: Mirtazapine (Remeron) 15 mg PO QHS [facility] Last Admin: 10/10/19 21:12 Dose: 15 mg Documented by: Multivitamins (Allbee W/C Caplet, Thera B Comp/C) [facility] Last Admin: 10/11/19 08:04 Dose: 1 capsule Documented by: Ondansetron HCl (Zofran Odt) 4 mg PO Q6H PRN PRN PRN Reason: NAUSEA/VOMITING Last Admin: 10/01/19 18:11 Dose: 4 mg Documented by: Oxycodone HCl (Oxyir) 5 mg PO Q4H PRN PRN PRN Reason: Pain Score 1-10/10 Last Admin: 10/10/19 21:12 Dose: 5 mg Documented by: Pantoprazole Sodium (Protonix) 40 mg PO BID [facility] Last Admin: 10/11/19 08:05 Dose: 40 mg Documented by: Polyethylene Glycol (Miralax) 17 gm PO DAILY [facility] Last Admin: 10/11/19 08:05 Dose: Not Given Documented by: Salmeterol Xinafoate (Serevent Diskus) 1 puff INHALATION Q12 [facility] Last Admin: 10/11/19 08:05 Dose: 1 puff Documented by: Sucralfate (Carafate) 1 gm PO 1HR_ACHS [facility] Last Admin: 10/11/19 11:05 Dose: 1 gm Documented by: Tamsulosin HCl (Flomax) 0.4 mg PO BID@0830,1730 [facility] Last Admin: 10/11/19 13:15 Dose: 0.4 mg Documented by: Vitamin E (Vitamin E) 400 units PO DAILYCM [facility] Last Admin: 10/11/19 08:04 Dose: 400 units Documented by: - Past Medical History Past Medical History (Chronic Problems): Chronic Problems (Last Reviewed 09/08/17 @ 10:24 by Abhay Casillas) Left carotid bruit (Chronic) History of laminectomy (Chronic) 09/28/19. Spine surgery by Dr. García Martell at the [facility] [place] including bilateral posterior hemilaminectomies at L2, L3, L4 and L5: Bilateral partial facetectomies and foraminotomies at L2-L3, L3-L4 and L4-L5: Posterior lateral fusion L4-L5 bilaterally with autogenous local graft and 15 mL influx cortical bone, bone graft substitute: Bilateral segmental fixation L4-L5 utilizing back to basics instrumentation and local graft harvest from decompression used for fusion. Nephrolithiasis (Chronic) Eosinophilia (Chronic) Bifascicular bundle branch block (Chronic) Right bundle branch block and left anterior fascicular block Grade I diastolic dysfunction (Chronic) Asymmetric septal hypertrophy (Chronic) Moderate upper septal left ventricular hypertrophy Renal failure (Chronic) no baseline available Former smoker (Chronic) quit in 2002 smoked for 48 years...up to 3 PPD at times Macrocytic anemia (Chronic) B12, TSH, folate all normal. History of hypertension (Chronic) BPH (benign prostatic hypertrophy) (Chronic) Rhinitis (Chronic) Neuropathy (Chronic) on gabapentin GERD (gastroesophageal reflux disease) (Chronic) History of esophageal cancer (Chronic) Follows with Dr. Hartmann. Treated with radiation in the past and with chemo - 2006. Has also had an esophageal satricture.....dilated in he thinks. Orthostatic hypotension (Chronic) on Midodrin Depression (Chronic) Osteoarthritis of left knee (Chronic) S/P TKR Status post total left knee replacement (Chronic) Lightheadedness (Chronic) due to orthostatic hypotension COPD (chronic obstructive pulmonary disease) (Chronic) saw Dr. Sterling once and PFT's that showed severe obstruction with 18% reversal with bronchodilator - Past Surgical History Surgical History: total knee arthroplasty - Left., - - Lithotripsy, bilateral inguinal hernia repair, laminectomy and fusion L4-L5 September 28, 2019, - Social History Smoking Status: Former smoker Alcohol: Heavy - in the past - no ETOH at present Drugs: None - Family History Maternal History Items: Heart Disease - his mother of heart disease Paternal History Items: Unknown - he did not know his father Sibling History Items: Pulmonary Disease - he had a brother with chronic lung disease and he of lung disease.....was on chronic oxygen for quite some time before passing Review of Systems Constitutional: Reports: Weakness. Denies: Anorexia, Chills, Fever, Fatigue Eyes: Denies: Vision Change HEENT: Denies: Sore Throat Cardiovascular: Reports: Light Headedness - occasionally. Denies: Chest Pain, Edema, Syncope Respiratory: Reports: Shortness of breath upon exertion. Denies: Cough Gastrointestinal: Denies: Abdominal Pain, Constipation, Diarrhea, Hematochezia, Nausea, Vomiting Genitourinary: Reports: Hesitancy, Retention, Urgency. Denies: Dysuria, Incontinence Musculoskeletal: Reports: Back Pain - s/p laminectomy Skin: Denies: Rash Neurological: Reports: - - numbness in feet, autonomic dysfunction Psychiatric: Reports: Depression Hematologic/ Lymphatic: Reports: Anemia. Denies: Hx of blood clot Patient Problems: Active and Suspected Problems (Last Reviewed 09/08/17 @ 10:24 by Abhay Casillas) Hyperkalemia (Acute) Benign neoplasm of colon (Acute) Hypertrophic obstructive cardiomyopathy (HOCM) (Acute) - Physical Exam Vitals/I&O's: Vital Signs Temp Pulse Resp BP Pulse Ox 97.8 F 81 16 105/68 92 10/11/19 09:05 10/11/19 09:05 10/11/19 09:05 10/11/19 09:05 10/11/19 09:52 Oxygen Delivery Method Room Air Weight: 71.4 kg Body Mass Index (BMI) 21.9 Orthostatic Vital Signs Start: 10/02/19 14:17 Freq: q24h Status: Active Protocol: Activity Type Activity Date Activity User E-Sign Co-Sign Detail Recorded Client Recorded Date Recorded By Document 10/11/19 07:00 CMK [id number] 10/11/19 11:20 CMK 10/11/19 07:00 Orthostatic Vitals Standing -Blood Pressure (90/60-120/80 mm Hg) 89/44 L -Extremity Use Left Arm -Pulse Rate (60-100 beats/min) 89 Sitting -Blood Pressure (90/60-120/80 mm Hg) 104/68 -Extremity Use Left Arm -Pulse Rate (60-100 beats/min) 84 Lying -Blood Pressure (90/60-120/80 mm Hg) 105/68 -Extremity Use Left Arm -Pulse Rate (60-100 beats/min) 81 Intake and Output for Last 24 Hours 10/09/19 10/10/19 10/11/19 23:59 23:59 23:59 Intake Total 740 / 740 1540 / 1540 1020 / 1020 Output Total 1675 / 1675 2100 / 2100 475 / 475 Balance -935 / -935 -560 / -560 545 / 545 General: Alert, Oriented x3, Cooperative, No apparent distress, - - thin HEENT: PERRLA, EOMI Neck: Supple, No JVD Lungs: Clear to auscultation, Diminished, Rhonchi Cardiovascular: Regular rate Abdomen: Bowel Sounds Present, Soft, Non Tender, Non-Distended, - - nonpalpable bladder Extremities: No edema Skin: No rashes Musculoskeletal: Muscle Wasting Neurological: Cranial nerves II-XII grossly intact, - - generalized weakness Psych/Mental Status: Normal Affect, Appropriate, Alert and oriented to time, place, person, mood and affect Laboratory Results 10/11/19 05:22: Sodium 139, Potassium 5.4 H, Chloride 106, Carbon Dioxide 29.0, BUN 57 H, Creatinine 1.82 H, Estim Creat Clear Calc 34.09, Est GFR (MDRD) Af Amer 47 L, Est GFR (MDRD) Non-Af 39 L, BUN/Creatinine Ratio 31.3 H, Glucose 95, Calcium 9.3, Phosphorus 4.3, Albumin 2.8 L Clinical Impression(s) from Imaging Studies Chest X-Ray 10/02/19 15:30 IMPRESSION: No acute cardiopulmonary disease. Electronically Signed: Amanda Webster MD at 0:33 EST , Service support , Videofluoroscopic Swallow 10/04/19 00:00 IMPRESSION: Solid aspiration with ingestion of thin liquids and nectar thickened liquids. The swallow study findings were discussed with the patient by the speech pathologist at the conclusion of the examination. Please see speech pathology report for more information and recommendations. Electronically Signed: Kb Garduno, at 14:26 EST , Service support , Renal Ultrasound 10/10/19 13:00 IMPRESSION: Multiple bilateral renal cysts. Multiple small left intrarenal calculi. Post void residual. Electronically Signed: Kb Garduno, at 15:41 EST , Service support , Current Medications Acetaminophen (Tylenol) 1,000 mg PO Q12 [facility] Last Admin: 10/11/19 08:05 Dose: 1,000 mg Documented by: Albuterol Sulfate (Ventolin Hfa (Sp)) 2 puff INHALATION Q4H PRN PRN PRN Reason: SOB &/OR WHEEZING Last Admin: 10/02/19 21:07 Dose: 2 puff Documented by: Albuterol Sulfate (Ventolin Hfa (Sp)) 2 puff INHALATION DAILY [facility] Last Admin: 10/11/19 08:06 Dose: 2 puff Documented by: Ascorbic Acid (Vitamin C) 1,000 mg PO DAILY@0800 [facility] Last Admin: 10/11/19 08:04 Dose: 1,000 mg Documented by: Atenolol (Tenormin (Beta Daniel)) 12.5 mg PO DAILY [facility] Last Admin: 10/11/19 08:05 Dose: 12.5 mg Documented by: Bisacodyl (Dulcolax) 10 mg PO DAILY PRN PRN PRN Reason: Constipation Gabapentin (Neurontin) 300 mg PO TID [facility] Last Admin: 10/11/19 13:15 Dose: 300 mg Documented by: Loratadine (Claritin) 10 mg PO DAILY [facility] Last Admin: 10/11/19 08:04 Dose: 10 mg Documented by: Magnesium Hydroxide (Milk Of Magnesia) 30 ml PO DAILY PRN PRN Reason: Constipation Midodrine (Proamatine) 2.5 mg PO BID@0600,1800 [facility] Last Admin: 10/11/19 05:34 Dose: 2.5 mg Documented by: Mirtazapine (Remeron) 15 mg PO QHS [facility] Last Admin: 10/10/19 21:12 Dose: 15 mg Documented by: Multivitamins (Allbee W/C Caplet, Thera B Comp/C) [facility] Last Admin: 10/11/19 08:04 Dose: 1 capsule Documented by: Ondansetron HCl (Zofran Odt) 4 mg PO Q6H PRN PRN PRN Reason: NAUSEA/VOMITING Last Admin: 10/01/19 18:11 Dose: 4 mg Documented by: Oxycodone HCl (Oxyir) 5 mg PO Q4H PRN PRN PRN Reason: Pain Score 1-10/10 Last Admin: 10/10/19 21:12 Dose: 5 mg Documented by: Pantoprazole Sodium (Protonix) 40 mg PO BID [facility] Last Admin: 10/11/19 08:05 Dose: 40 mg Documented by: Polyethylene Glycol (Miralax) 17 gm PO DAILY [facility] Last Admin: 10/11/19 08:05 Dose: Not Given Documented by: Salmeterol Xinafoate (Serevent Diskus) 1 puff INHALATION Q12 [facility] Last Admin: 10/11/19 08:05 Dose: 1 puff Documented by: Sucralfate (Carafate) 1 gm PO 1HR_ACHS [facility] Last Admin: 10/11/19 11:05 Dose: 1 gm Documented by: Tamsulosin HCl (Flomax) 0.4 mg PO BID@0830,1730 [facility] Last Admin: 10/11/19 13:15 Dose: 0.4 mg Documented by: Vitamin E (Vitamin E) [facility] Last Admin: 10/11/19 08:04 Dose: 400 units Documented by: Assessment/Plan All Active Problems (Last Reviewed 09/08/17 @ 10:24 by Abhay Casillas) Hyperkalemia (Acute) Benign neoplasm of colon (Acute) Hypertrophic obstructive cardiomyopathy (HOCM) (Acute) Urinary retention (Acute) Dehydration (Resolved) Hypophosphatemia (Resolved) 1. MAGDALENA on CKD. Baseline creatinine appears to be 1.0-1.2 in 2017. Creatinine 1.29 on 10/03/19 progressed to 1.82 on 10/11/19 suspect due to ATN from hypoperfusion state and urinary retention. BP low in the 100's systolic. Post void residual 124-233cc on bladder scan and US but no hydro with RK 9.8cm, LK 9.9cm. Pt refuses indwelling thomas. Suspect underlying nephrosclerosis with hx tobacco use. UA without protein or blood on 10/10/19. No recent iv contrast exposure. Avoid nephrotoxins, NSAIDs. 2. Hyperkalemia due to renal failure, electrolyte drinks. Kayexalate 30g x1. Follow low K diet 3. Debility due to laminectomy 4. COPD hx tobacco use 5. Autonomic dysfunction on midodrine. 6. Hx esophageal/laryngeal cancer s/p radiation, chemotherapy in 2006. May need iv fluids if unable to increase fluid intake and SBP remains low.
[2019-10-11] MEDS: Sodium Polystyrene Sulfonate 15 GM/60 ML UDC 30 GM PO (16:22)
[2019-10-11 19:40] VITALS: BP 102/75; PULSE 93; RESP 16; TEMP 36.4; O2SAT 95
[2019-10-11] MEDS: Mirtazapine 15 MG Tablet PO (21:35)
[2019-10-11] MEDS: oxyCODONE 5 MG Tablet PO (21:37)
--- NOTE | 2019-10-12 02:00 | NURSING ---
Reviewed and agree with BUSINESS ATTORNEY documentation.
[2019-10-12] MEDS: Sucralfate 1 GM Tablet PO (05:41)
[2019-10-12] MEDS: Midodrine HCl 5 MG Tablet 2.5 MG PO (05:41)
[2019-10-12] MEDS: Gabapentin 300 MG Capsule PO ×2 (05:41→13:39)
[2019-10-12 06:09] LABS: Albumin, Serum 2.7 g/dL (3.2-5.0); BUN 60 mg/dL (7-18); BUN/Creat Ratio 32.1 RATIO (10-20); Calcium,Total 9.2 mg/dL (8.5-10.1); Chloride 106 mmol/L (98-107); Creatinine, Serum 1.87 mg/dL (0.70-1.30); EST Glomerular Filtration Rate 37 mL/min (>60); Est Glom Filt Rate - Afr Amer 45 mL/min (>60); Estimated Creatinine Clearance 33.41 ml/min; Glucose 90 mg/dL (74-106); Phosphorus 4.9 mg/dL (2.5-4.9); Potassium 4.7 mmol/L (3.5-5.1); Sodium Level 141 mmol/L (136-145)
[2019-10-12] MEDS: Tamsulosin HCl 0.4 MG Capsule PO (07:39)
[2019-10-12] MEDS: Vitamin E 400 UNITS Capsule PO (07:39)
[2019-10-12] MEDS: Vitamin B Comp W-C Capsule 1 CAP PO (07:39)
[2019-10-12] MEDS: Ascorbic Acid 500 MG Tablet 1000 MG PO (07:39)
[2019-10-12] MEDS: Pantoprazole Sodium 40 MG Tablet PO (07:40)
[2019-10-12] MEDS: Loratadine 10 MG Tablet PO (07:40)
[2019-10-12] MEDS: Acetaminophen 500 MG Tablet 1000 MG PO (07:41)
[2019-10-12] MEDS: Atenolol 25 MG Tablet 12.5 MG PO (07:41)
[2019-10-12 09:11] VITALS: BP 114/67; PULSE 84; RESP 18; TEMP 36.6; O2SAT 93
--- NOTE | 2019-10-12 12:34 | TREXTCAR_ITS ---
- Diet 10/12/19 07:33 Diet: Regular Diet Type of Dietary Supplement:: Ensure Complete Is pt able to select menu?: Yes - Routine Orders/Code Status Enema Type: Fleetz Enema Frequency: Daily PRN Suppository Type: Dulcolax 10mg Suppository Frequency: Daily PRN O2 Liters per Minute: 1-2 Keep PO Greater than or Equal to (%): 90 Routine Lab Work: - - CBC, Renal profile 10/13/19 Code Status: Full Code - Wound(s) lower back Wound Type: Surgical Incision tapes ivory Wound Type: tape ivory - Therapies Weight Bearing: Full weight bearing Physical Therapy: Eval and Treat Occupational Therapy: Eval and Treat Speech Therapy: Eval and Treat - Problem/Diagnosis (1) Former smoker Status: Chronic Comment: quit in 2002 smoked for 48 years...up to 3 PPD at times Current Visit: No (2) Macrocytic anemia Status: Chronic Comment: B12, TSH, folate all normal. Current Visit: No (3) History of hypertension Status: Chronic Current Visit: No (4) BPH (benign prostatic hypertrophy) Status: Chronic Comment: With urine retention - as much as 536 at times Current Visit: No (5) Rhinitis Status: Chronic Current Visit: No (6) Neuropathy Status: Chronic Comment: on gabapentin Current Visit: No (7) GERD (gastroesophageal reflux disease) Status: Chronic Current Visit: No (8) History of esophageal cancer Status: Chronic Comment: Follows with Dr. Hartmann. Treated with radiation in the past and with chemo - 2006. Has also had an esophageal satricture.....dilated in he thinks. Current Visit: No (9) Orthostatic hypotension Status: Chronic Comment: on Midodrin Current Visit: No (10) Depression Status: Chronic Comment: started on Remeron 10/03/2019. Insomnia and appetite have improved but, still depressed....will be a few more weeks before the anti- depressant effect kicks in. Current Visit: No (11) Autonomic neuropathy Status: Suspected Current Visit: No (12) Osteoarthritis of left knee Status: Chronic Comment: S/P TKR Current Visit: No (13) Status post total left knee replacement Status: Chronic Current Visit: No (14) Urinary retention Status: Acute Comment: Flomax was increased to BID on 10/11/19 Current Visit: No (15) Lightheadedness Status: Chronic Comment: due to orthostatic hypotension Current Visit: No (16) COPD (chronic obstructive pulmonary disease) Status: Chronic Comment: saw Dr. Sterling once and PFT's that showed severe obs truction with 18% reversal with bronchodilator Current Visit: No (17) Left carotid bruit Status: Chronic Current Visit: Yes (18) History of laminectomy Status: Chronic Comment: 09/28/19. Spine surgery by Dr. García Martell at the [facility] [place]opedic [place] including bilateral posterior hemilaminectomies at L2, L3, L4 and L5: Bilateral partial facetectomies and foraminotomies at L2- L3, L3-L4 and L4-L5: Posterior lateral fusion L4-L5 bilaterally with autogenous local graft and 15 mL influx cortical bone, bone graft substitute: Bilateral segmental fixation L4-L5 utilizing back to basics instrumentation and local graft harvest from decompression used for fusion. Current Visit: Yes (19) Nephrolithiasis Status: Chronic Current Visit: Yes (20) Benign neoplasm of colon Status: Chronic Current Visit: Yes (21) Hypertrophic obstructive cardiomyopathy (HOCM) Status: Acute Current Visit: Yes (22) Eosinophilia Status: Chronic Current Visit: Yes (23) Bifascicular bundle branch block Status: Chronic Comment: Right bundle branch block and left anterior fascicu lar block Current Visit: Yes (24) Grade I diastolic dysfunction Status: Chronic Current Visit: Yes (25) Asymmetric septal hypertrophy Status: Chronic Comment: Moderate upper septal left ventricular hypertrophy Current Visit: Yes (26) [id number] renal failure Status: Chronic Comment: due to hypotension and urine retention. Refuses a thomas. Current Visit: Yes (27) Dysphagia causing pulmonary aspiration with swallowing Status: Chronic Comment: refuses thickened liquids. Has had esophageal strictures in the past and had dilation. Current Visit: Yes - Allergies/Procedures Done in Hospital Allergies/Adverse Reactions: Allergies morphine Adverse Reaction (Verified 08/25/18 09:30) Vomiting DUST Allergy (Uncoded 11/14/16 10:43) Other SNEEZING MOLD Allergy (Uncoded 11/14/16 10:43) Other Procedures: - - Modified barium swallow - Type of Care/Length of Stay Estimated LOS: Convalescent Care Less Than 30 days Type of Care Needed: Skilled Rehab Potential: Fair Prognosis: Fair - Additional Orders/Day of Discharge H&P will serve as current which was dated: 10/02/19 Day of Discharge: 10/12/19 - Dietary and Speech Recommendations Dietitian Recommendations/Changes: Continue regular diet and ensure TID w/ meals. Will fortify foods when able to increase protein/calorie content. Weigh every other day. - Follow Up Care Primary Care Physician: Anderson Crowley MD [Primary Care Provider] - Please follow up with your Primary Care Physician in: 1 week following DC from TCU Please Follow Up With: Dr Alvin Martell When: had appt on 10/12/19
--- NOTE | 2019-10-12 14:52 | PCM.DC.SUM ---
Discharge Date and Diagnosis - Problem List Patient Problems: Active and Suspected Problems (Last Reviewed 09/08/17 @ 10:24 by Abhay Casillas) Hyperkalemia (Acute) Hypertrophic obstructive cardiomyopathy (HOCM) (Acute) Date of Admission: 10/01/19 Date of Discharge: 10/12/19 - Primary Discharge Diagnosis Active and Suspected Problems (Last Reviewed 09/08/17 @ 10:24 by Abhay Casillas) Debility secondary to laminectomy/fusion Acute renal failure on chronic renal failure stage III-more likely than not secondary to combined hypotension and urine retention Urine retention - refuses a Thomas Hyperkalemia (Acute)-resolved Heme + stool - Secondary Discharge Diagnosis Chronic Problems (Last Reviewed 09/08/17 @ 10:24 by Abhay Casillas) [id number]-[id number] renal failure (Chronic) due to hypotension and urine retention. Refuses a thomas. Dysphagia causing pulmonary aspiration with swallowing (Chronic) refuses thickened liquids. Has had esophageal strictures in the past and had dilation. Left carotid bruit (Chronic) History of laminectomy (Chronic) 09/28/19. Spine surgery by Dr. García Martell at the [facility] including bilateral posterior hemilaminectomies at L2, L3, L4 and L5: Bilateral partial facetectomies and foraminotomies at L2-L3, L3-L4 and L4-L5: Posterior lateral fusion L4-L5 bilaterally with autogenous local graft and 15 mL influx cortical bone, bone graft substitute: Bilateral segmental fixation L4-L5 utilizing back to basics instrumentation and local graft harvest from decompression used for fusion. Nephrolithiasis (Chronic) Benign neoplasm of colon (Chronic) Eosinophilia (Chronic) Bifascicular bundle branch block (Chronic) Right bundle branch block and left anterior fascicular block Grade I diastolic dysfunction (Chronic) Former smoker (Chronic) quit in 2002 smoked for 48 years...up to 3 PPD at times Macrocytic anemia (Chronic) B12, TSH, folate all normal. History of hypertension (Chronic) BPH (benign prostatic hypertrophy) (Chronic) With urine retention - as much as 536 at times Rhinitis (Chronic) Neuropathy (Chronic) on gabapentin GERD (gastroesophageal reflux disease) (Chronic) History of esophageal cancer (Chronic) Follows with Dr. Hartmann. Treated with radiation in the past and with chemo - 2006. Has also had an esophageal satricture.....dilated in he thinks. Orthostatic hypotension (Chronic) on Midodrin Depression (Chronic) started on Remeron 10/03/2019. Insomnia and appetite have improved but, still depressed....will be a few more weeks before the anti-depressant effect kicks in. Osteoarthritis of left knee (Chronic) S/P TKR Status post total left knee replacement (Chronic) Lightheadedness (Chronic) due to orthostatic hypotension COPD (chronic obstructive pulmonary disease) (Chronic) saw Dr. Sterling once and PFT's that showed severe obstruction with 18% reversal with bronchodilator Hypertrophic obstructive cardiomyopathy (HOCM) (Acute) Moderate upper septal left ventricular hypertrophy Hospital Course and Treatment Imaging Results: Clinical Impression(s) from Imaging Studies Chest X-Ray 10/02/19 15:30 IMPRESSION: No acute cardiopulmonary disease. Electronically Signed: Amanda Webster MD at 0:33 EST , Service support , Videofluoroscopic Swallow 10/04/19 00:00 IMPRESSION: Solid aspiration with ingestion of thin liquids and nectar thickened liquids. The swallow study findings were discussed with the patient by the speech pathologist at the conclusion of the examination. Please see speech pathology report for more information and recommendations. Electronically Signed: Kb Garduno, at 14:26 EST , Service support , Renal Ultrasound 10/10/19 13:00 IMPRESSION: Multiple bilateral renal cysts. Multiple small left intrarenal calculi. Post void residual. Electronically Signed: Kb Garduno, at 15:41 EST , Service support , none Operations: None, total knee replacement - Left knee-09/22/2016, Dr. Brandon Cazares, - - Lumbar laminectomy and fusion at the [facility] by Dr. 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, esophageal stricture (dilated in 2019), GERD, chronic renal failure stage III, BPH, nephrolithiasis with history of lithotripsy, peripheral neuropathy secondary to chemotherapy, chronic macrocytic anemia (with normal B12, normal TSH and normal folate), leg cramps(worse at night - no improvement with B complex), chronic rhinitis and pruritus with increased eosinophils(not improved with an antihistamine), COPD, osteoarthritis, depression (untreated), Hypertrophic upper LV ventricular septum with mild outflow obstruction and lumbar spine surgery at the [facility] on09/28/[address] Alvin Martell for unstable L4-5 spondylolisthesis with L4-5 laminectomy and fusion and microdissections with mini laminectomies and facetectomies at L2-3, L3-4 and L4-5 admitted to the Inpatient rehab unit at [facility] on 10/01/2019 for debility secondary to spine surgery for greater than 3 hours of therapy daily with a goal of returning home at or near prior level of independence. The patient lives at home by himself and has 3 steps to enter his house and a second floor bedroom and basement. The patient was independent with ADL's, mobility and driving prior to hospitalization. Lab at admission to the rehab unit showed a hemoglobin of 9.8 with an MCV of 91.1. He has a chronic macrocytic anemia. A hemoccult stool was checked and was +. He was placed on Protonix and Carafate and the HGB is stable. Platelets and white blood cell count were within normal limits. The CMP showed a BUN of 28 and a creatinine of 1.29. Alkaline phosphatase was mildly increased at 125 and this is likely due to recent spinal surgery. Cholesterol was 180 with an LDL of 101 and an HDL of 45. He came to us with a Thomas because he was unable to void when the catheter was removed at the [facility]. He was started on Flomax 0.4 mg daily and the catheter was removed in a few days. Initial post void residuals were less than 250 following catheter removal. Routine labs done on 10/09/2019 showed the creatinine had increased from 1.29-1.64. The BUN was elevated at 40. He was instructed to increase his fluid intake. He was drinking a lot of Gatorade/Powerade which is friends brought to him. A renal profile was rechecked on 10/10/2019 and the creatinine had increased to 1.77 and then to 1.82 with a BUN of 57 on 10/11/2019. On 10/10/2019 a sectional excretion of sodium was calculated and it was 0.9% which is consistent with prerenal azotemia. When the creatinine increased to 1.82 consultation was placed to Dr. Dannielle Sharpe from nephrology. Her opinion was that the acute renal failure as a result of combined effects of low blood pressure and urine retention. A post void residual on October 10 was greater than 500 cc. The patient refused a Thomas catheter. An ultrasound was obtained of the kidneys and bladder and showed multiple bilateral renal cysts, multiple small left intrarenal calculi and a post void residual of 233 cc. There was no demonstrated mass within the bladder and the wall thickness was normal. He has dysautonomia and the BP sometimes drops into the 90's systolic and he becomes lightheaded. He is on Midodrine to prevent this from happening. He is also on Atenolol 12.5 mg daily. He and I discussed how treating the retention with increased Flomax may make the orthostatic hypotension worse. Flomax was increased to BID. Atenolol was discontinued. If he has symptomatic orthostatic hypotension would consider decrease the Flomax to once a day and add Avodart which does not tend to lower the BP. He c/o insomnia and decreased appetite at admission and he was not on an anti-depressant and he was started on Remeron. He is sleeping well now and his appetite is better but, his affect is still flat and he always sees the glass half empty. He has only been on the Remeron since 10/02/19 and so it may be too early to expect significant anti-depressant effect. I would continue the Remeron. He initially wanted to go home as soon as possible. He did well in therapy and the therapist felt he would be safe at home so he was transitioned to MOD I however, on 10/10/19in the afternoon he related to the SW that he was afraid to go home and felt he needed to be stronger to go home. MOD I was discontinued and plans were made to transfer to [facility] for additional therapy after he returned from his appt with Dr. Martell on 10/12/19. He will be on a potassium restricted diet at DC to TCU. Hyperkalemia resolved with increased fluid intake and a potassium restricted diet and on , 10/12/2019 the potassium was 4.7 with a BUN of 60 and a creatinine of 1.87. Fluid intake on 10/11/2019 was 1740 cc. Blood pressure in the a.m. on 10/12/2019 was 114/67. He was transferred to TCU on 10/12/19. I recommended he follow up with GI following DC from TCU to discuss the heme+ stool and possibly to have endoscopy to determine the source of the bleeding. Consider checking iron studies and if low start an iron supplement with vitamin C to promote GI absorption in this pt on PPI chronically. He may need to get IV iron if the iron is low and this can be arranged with Dr. 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 He was discharged on medications previously listed Alert, oriented x3, lying in bed in no apparent distress Lungs-diminished but with better air exchange than at admission since Serevent has been added to his drug regimen, rare wheeze, no rales, Heart-regular rate and rhythm, no gallop, no rub, normal S1, normal S2 Abdomen flat, soft, nontender, nondistended No peripheral edema No focal neurologic deficits The incision is clean, dry and intact with no evidence of periwound erythema or purulent discharge This note was generated with [employer] dictation software. It may contain incorrect words, spelling, and punctuation that were not noted in checking the note before signing. Patient Problems: Active and Suspected Problems (Last Reviewed 09/08/17 @ 10:24 by Abhay Casillas) Hyperkalemia (Acute) Hypertrophic obstructive cardiomyopathy (HOCM) (Acute) - Physical Exam Vitals/I&O's: Vital Signs Temp Pulse Resp BP Pulse Ox 97.9 F 84 18 114/67 93 10/12/19 09:11 10/12/19 09:11 10/12/19 09:11 10/12/19 09:11 10/12/19 09:11 Oxygen Delivery Method Room Air Weight: 157 lb 6.561 oz Body Mass Index (BMI) 21.9 Orthostatic Vital Signs Start: 10/02/19 14:17 Freq: q24h Status: Active Protocol: Activity Type Activity Date Activity User E-Sign Co-Sign Detail Recorded Client Recorded Date Recorded By Document 10/11/19 07:00 LESLEE [id number] 10/11/19 11:20 CMK 10/11/19 07:00 Orthostatic Vitals Standing -Blood Pressure (90/60-120/80 mm Hg) 89/44 L -Extremity Use Left Arm -Pulse Rate (60-100 beats/min) 89 Sitting -Blood Pressure (90/60-120/80 mm Hg) 104/68 -Extremity Use Left Arm -Pulse Rate (60-100 beats/min) 84 Lying -Blood Pressure (90/60-120/80 mm Hg) 105/68 -Extremity Use Left Arm -Pulse Rate (60-100 beats/min) 81 Intake and Output for Last 24 Hours 10/10/19 10/11/19 10/12/19 23:59 23:59 23:59 Intake Total 1540 / 1540 1740 / 1740 660 / 660 Output Total 2100 / 2100 1675 / 1675 350 / 350 Balance -560 / -560 65 / 65 310 / 310 Microbiology Past 72 Hours 10/10/19 12:55 Urine, Clean Catch Urine Culture - Final Culture exhibits no growth. Laboratory Results 10/12/19 05:35: Sodium 141, Potassium 4.7, Chloride 106, Carbon Dioxide 31.0, BUN 60 H, Creatinine 1.87 H, Estim Creat Clear Calc 33.41, Est GFR (MDRD) Af Amer 45 L, Est GFR (MDRD) Non-Af 37 L, BUN/Creatinine Ratio 32.1 H, Glucose 90, Calcium 9.2, Phosphorus 4.9, Albumin 2.7 L Current Medications Acetaminophen (Tylenol) 1,000 mg PO Q12 [facility] Last Admin: 10/12/19 07:41 Dose: 1,000 mg Documented by: Albuterol Sulfate (Ventolin Hfa (Sp)) 2 puff INHALATION Q4H PRN PRN PRN Reason: SOB &/OR WHEEZING Last Admin: 10/02/19 21:07 Dose: 2 puff Documented by: Albuterol Sulfate (Ventolin Hfa (Sp)) 2 puff INHALATION DAILY [facility] Last Admin: 01/30/20 07:40 Dose: 2 puff Documented by: Ascorbic Acid (Vitamin C) 1,000 mg PO DAILY@0800 [facility] Last Admin: 10/12/19 07:39 Dose: 1,000 mg Documented by: Atenolol (Tenormin (Beta Daniel)) 12.5 mg PO DAILY [facility] Last Admin: 10/12/19 07:41 Dose: 12.5 mg Documented by: Bisacodyl (Dulcolax) 10 mg PO DAILY PRN PRN PRN Reason: Constipation Gabapentin (Neurontin) 300 mg PO TID [facility] Last Admin: 10/12/19 13:39 Dose: 300 mg Documented by: Loratadine (Claritin) 10 mg PO DAILY [facility] Last Admin: 10/12/19 07:40 Dose: 10 mg Documented by: Magnesium Hydroxide (Milk Of Magnesia) 30 ml PO DAILY PRN PRN Reason: Constipation Midodrine (Proamatine) 2.5 mg PO BID@0600,1800 [facility] Last Admin: 10/12/19 05:41 Dose: 2.5 mg Documented by: Mirtazapine (Remeron) 15 mg PO QHS [facility] Last Admin: 10/11/19 21:35 Dose: 15 mg Documented by: Multivitamins (Allbee W/C Caplet, Thera B Comp/C) 1 capsule PO DAILYCM [facility] Last Admin: 10/12/19 07:39 Dose: 1 capsule Documented by: Ondansetron HCl (Zofran Odt) 4 mg PO Q6H PRN PRN PRN Reason: NAUSEA/VOMITING Last Admin: 10/01/19 18:11 Dose: 4 mg Documented by: Oxycodone HCl (Oxyir) 5 mg PO Q4H PRN PRN PRN Reason: Pain Score 1-10/10 Last Admin: 10/11/19 21:37 Dose: 5 mg Documented by: Pantoprazole Sodium (Protonix) 40 mg PO BID [facility] Last Admin: 10/12/19 07:40 Dose: 40 mg Documented by: Polyethylene Glycol (Miralax) 17 gm PO DAILY [facility] Last Admin: 10/12/19 07:40 Dose: Not Given Documented by: Salmeterol Xinafoate (Serevent Diskus) 1 puff INHALATION Q12 [facility] Last Admin: 10/12/19 07:41 Dose: 1 puff Documented by: Sucralfate (Carafate) 1 gm PO 1HR_ACHS [facility] Last Admin: 10/12/19 11:36 Dose: Not Given Documented by: Tamsulosin HCl (Flomax) 0.4 mg PO BID@0830,1730 [facility] Last Admin: 10/12/19 07:39 Dose: 0.4 mg Documented by: Vitamin E (Vitamin E) 400 units PO DAILYCM [facility] Last Admin: 10/12/19 07:39 Dose: 400 units Documented by: Home Medications: Medications to take at Discharge gabapentin 300 mg capsule 300 mg PO TID cap 09/02/17 Albuterol Inhaler [Ventolin Hfa] 2 puff INHALATION Q4H PRN PRN 10/01/19 Midodrine HCl 2.5 mg PO BID 10/01/19 Oxycodone [Oxyir] 5 mg PO Q6H PRN PRN 10/01/19 Ascorbic Acid [Vitamin C] 1,000 mg PO DAILY@0800 tab 10/12/19 Bisacodyl [Dulcolax] 10 mg PO DAILY PRN PRN tab 10/12/19 Magnesium Hydroxide [Milk Of Magnesia] 30 ml PO DAILY PRN udc 10/12/19 Mirtazapine [Remeron] 15 mg PO QHS tab 10/12/19 Ondansetron [Zofran Odt] 4 mg PO Q6H PRN PRN tab 10/12/19 Pantoprazole Sodium [Protonix] 40 mg PO BID tab 10/12/19 Polyethylene Glycol 3350 [Miralax] 17 gm PO DAILY packet 10/12/19 Salmeterol [Serevent Diskus] 1 puff INHALATION Q12 inhaler 10/12/19 Sucralfate [Carafate] 1 gm PO 1HR_ACHS tab 10/12/19 Tamsulosin HCl [Flomax] 0.4 mg PO BID@0830,1730 cap 10/12/19 Vitamin B Comp W-C [Allbee W/C Caplet, Thera B Comp/C] 1 cap PO DAILYCM cap 10/12/19 Vitamin E 400 units PO DAILYCM cap 10/12/19 Primary Care Physician: Anderson Crowley MD [Primary Care Provider] - Please follow up with your Primary Care Physician in: 1 week following DC from [facility] Please Follow Up With: Dr Alvin Martell When: had appt on 10/12/19 Disposition: Assisted facility - Transitional care unit Minutes spent on discharge:: 40 Patient Condition:: Stable Medical Necessity - Tobacco Use Smoking Status: Former smoker Tobacco Use: Non-smoker - he quit in 2002 but, prior to that he smoked up to 3 PPD for 48 years, Chew - in the past but, quit this as well Meaningful Use Info Meaningful Use Diagnoses (Choose all that apply): None applicable Code Visit Inpatient E&M: 46059 Disch Hosp
[2019-10-12 15:12] VITALS: BP 118/70; PULSE 80; RESP 18; TEMP 36.6; O2SAT 94
--- NOTE | 2019-10-12 15:17 | NURSING ---
discharged to TCU
== END 2019-10-12 15:19 | disposition skilled nursing facility (03) | DRG 560 ==
PROVIDERS: Admitting Provider Internal Medicine; PCP Family Medicine; Referring Provider Internal Medicine; Visit Provider Internal Medicine
DX: Z47.89 Encounter for other orthopedic aftercare (principal); I42.1 Obstructive hypertrophic cardiomyopathy; N17.9 Acute kidney failure, unspecified; J44.9 Chronic obstructive pulmonary disease, unspecified; I95.1 Orthostatic hypotension; I12.9 Hypertensive chronic kidney disease with stage 1 through stage 4 chronic kidney disease, or unspecified chronic kidney disease; N18.3 Chronic kidney disease, stage 3 (moderate); N40.1 Benign prostatic hyperplasia with lower urinary tract symptoms; R39.12 Poor urinary stream; K21.9 Gastro-esophageal reflux disease without esophagitis; R09.89 Other specified symptoms and signs involving the circulatory and respiratory systems; N13.9 Obstructive and reflux uropathy, unspecified; D53.9 Nutritional anemia, unspecified; R33.8 Other retention of urine; Z87.891 Personal history of nicotine dependence
CPT/HCPCS: 36415; 71046; 74230; 76770; 80048; 80053; 80061; 80069; 81001; 82274; 82570; 83735; 84100; 84300; 85014; 85018; 85025; 87086; 92526; 92610; 92611; 93970; 97110; 97116; 97162; 97166; 97530; 97535; 97542; 97802; 97803; 99251; G0463

== ENCOUNTER 2019-10-12 15:00 | Inpatient (IN) | payer MEDICARE, OTHER, SELFPAY ==
[2019-10-01 14:42] VITALS: BMI 21.9
[2019-10-12 15:27] VITALS: BP 129/79; PULSE 84; RESP 18; TEMP 36.8; O2SAT 97
[2019-10-12 15:29] VITALS: BMI 21.4
[2019-10-12 15:33] VITALS: BMI 21.4
[2019-10-12] MEDS: Tamsulosin HCl 0.4 MG Capsule PO (18:33)
[2019-10-12] MEDS: Midodrine HCl 5 MG Tablet 2.5 MG PO (18:33)
[2019-10-12] MEDS: Pantoprazole Sodium 40 MG Tablet PO (18:33)
--- NOTE | 2019-10-12 19:25 | HP.PCM_ITS ---
Problem List (1) Debility Status: Acute (2) Lumbar spinal stenosis Status: Chronic (3) Acute kidney injury Status: Acute (4) Chronic kidney disease Status: Chronic (5) Hypertension Status: Chronic (6) Neuropathic pain Status: Chronic (7) Pharyngeal cancer Status: Chronic (8) Nephrolithiasis Status: Chronic (9) Hypertrophic obstructive cardiomyopathy (HOCM) Status: Chronic (10) Macrocytic anemia Status: Chronic Comment: B12, TSH, folate all normal. (11) BPH (benign prostatic hypertrophy) Status: Chronic Qualifiers: Comment: With urine retention - as much as 536 at times (12) GERD (gastroesophageal reflux disease) Status: Chronic Qualifiers: (13) Orthostatic hypotension Status: Chronic Comment: on Midodrin (14) Osteoarthritis of left knee Status: Chronic Qualifiers: Comment: S/P TKR (15) Urinary retention Status: Acute Comment: Flomax was increased to BID on 10/11/19 (16) COPD (chronic obstructive pulmonary disease) Status: Chronic Comment: saw Dr. Sterling once and PFT's that showed severe obstruction with 18% reversal with bronchodilator History of Present Illness Date of Admission: 10/12/19 Chief Complaint: Here for rehabilitation, strengthening, prior to discharge home alone. The patient is a 79 year old Male with below past medical history with followin09/28/2019 Lumbar spine surgery with Dr. Alvin Martell. 10/02/2019 Admit to Inpatient Rehab for debility. 10/02/2019 Doppler ultrasound of legs NEGATIVE DVT. 10/02/2019 Chest X-ray negative. 10/04/2019 Modified Barium Swallow recommended pureed textured, honey thickened liquid diet, but patient requested normal textured food. 10/10/2019 Renal ultrasound multiple bilateral renal cysts. Multiple small left kidney stones. Post Void Residual. 10/11/2019 Dr. Sharpe noted acute kidney injury secondary to ATN from hypotension, urinary retention. Patient refused indwelling thomas catheter. Kayexalate 30GM x 1 dose for hyperkalemia. Consider IV fluids if unable to increase fluid intake, and systolic blood pressure low. 10/12/2019 Admit to TCU with debility, here for rehabilitation, strengthening, prior to discharge home alone. Past Medical History Past Medical History (Chronic Problems): Chronic Problems (Last Reviewed 09/08/17 @ 10:24 by Abhay Casillas) [id number] renal failure (Chronic) due to hypotension and urine retention. Refuses a thomas. Dysphagia causing pulmonary aspiration with swallowing (Chronic) refuses thickened liquids. Has had esophageal strictures in the past and had dilation. Lumbar spinal stenosis (Chronic) Chronic kidney disease (Chronic) Hypertension (Chronic) Neuropathic pain (Chronic) Pharyngeal cancer (Chronic) Left carotid bruit (Chronic) History of laminectomy (Chronic) 09/28/19. Spine surgery by Dr. García Martell at the [facility] including bilateral posterior hemilaminectomies at L2, L3, L4 and L5: Bilateral partial facetectomies and foraminotomies at L2-L3, L3-L4 and L4-L5: Posterior lateral fusion L4-L5 bilaterally with autogenous local graft and 15 mL influx cortical bone, bone graft substitute: Bilateral segmental fixation L4-L5 utilizing back to basics instrumentation and local graft harvest from decompression used for fusion. 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 History of hypertension (Chronic) BPH (benign prostatic hypertrophy) (Chronic) With urine retention - as much as 536 at times Rhinitis (Chronic) Neuropathy (Chronic) on gabapentin GERD (gastroesophageal reflux disease) (Chronic) History of esophageal cancer (Chronic) Follows with Dr. Hartmann. Treated with radiation in the past and with chemo - 2006. Has also had an esophageal satricture.....dilated in he thinks. Orthostatic hypotension (Chronic) on Midodrin Depression (Chronic) started on Remeron 10/03/2019. Insomnia and appetite have improved but, still depressed....will be a few more weeks before the anti-depressant effect kicks in. Osteoarthritis of left knee (Chronic) S/P TKR Status post total left knee replacement (Chronic) Lightheadedness (Chronic) due to orthostatic hypotension COPD (chronic obstructive pulmonary disease) (Chronic) saw Dr. Sterling once and PFT's that showed severe obstruction with 18% reversal with bronchodilator Allergies morphine Adverse Reaction (Verified 08/25/18 09:30) Vomiting DUST Allergy (Uncoded 11/14/16 10:43) Other SNEEZING MOLD Allergy (Uncoded 11/14/16 10:43) Other Home Medications: Ambulatory Orders Medication Instructions Recorded gabapentin 300 mg capsule 300 mg PO TID cap 09/02/17 Albuterol Inhaler [Ventolin Hfa] 2 puff INHALATION Q4H PRN PRN 10/01/19 Midodrine HCl 2.5 mg PO BID 10/01/19 Oxycodone [Oxyir] 5 mg PO Q6H PRN PRN 10/01/19 Ascorbic Acid [Vitamin C] 1,000 mg PO DAILY@0800 10/12/19 Bisacodyl [Dulcolax] 10 mg PO DAILY PRN PRN tab 10/12/19 Magnesium Hydroxide [Milk Of 30 ml PO DAILY PRN udc 10/12/19 Magnesia] Mirtazapine [Remeron] 15 mg PO QHS 10/12/19 Ondansetron [Zofran Odt] 4 mg PO Q6H PRN PRN tab 10/12/19 Pantoprazole Sodium [Protonix] 40 mg PO BID 10/12/19 Polyethylene Glycol 3350 [Miralax] 17 gm PO DAILY 10/12/19 Salmeterol [Serevent Diskus] 1 puff INHALATION Q12 10/12/19 Sucralfate [Carafate] 1 gm PO 1HR_ACHS 10/12/19 Tamsulosin HCl [Flomax] 0.4 mg PO BID@0830,1730 10/12/19 Vitamin B Comp W-C [Allbee W/C 1 cap PO DAILYCM 10/12/19 Caplet, Thera B Comp/C] Vitamin E 400 units PO DAILYCM 10/12/19 Surgical History: Surgical History (Last Reviewed 09/08/17 @ 10:24 by Abhay Casillas) H/O hernia repair Z98.890, Z87.19 1960 1965 History of tonsillectomy Z98.890, Z90.89 S/P total knee arthroplasty Z96.659 left 09/22/16 Surgical History: herniorrhaphy - Bilateral inguinal., total knee arthroplasty - Left., tonsillectomy, - - Lithotripsy, Laminectomy and fusion L4-L5 September 28, 2019, Psychiatric History: Depression Lives: Alone Smoking Status: Former smoker Tobacco Use: Non-smoker Alcohol: Sober Drugs: None - *Family History Maternal History Items: Heart Disease - his mother of heart disease Paternal History Items: Unknown - he did not know his father Sibling History Items: Pulmonary Disease - he had a brother with chronic lung disease and he of lung disease.....was on chronic oxygen for quite some time before passing Review of Systems Constitutional: Denies: Chills, Fever, Weight Change HEENT: Denies: Head Aches, Sinus Congestion, Sinus Drainage Cardiovascular: Denies: Chest Pain, Palpitations Respiratory: Denies: Cough, Shortness of breath at rest, Sputum production Gastrointestinal: Denies: Abdominal Pain, Nausea, Vomiting Genitourinary: Denies: Dysuria Musculoskeletal: Denies: Joint Pain, Joint Tenderness Skin: Denies: Rash, Wounds Neurological: Denies: Numbness, Tingling, Focal weakness Psychiatric: Denies: Anxiety, Depression, Homicidal Ideations, Suicidal Ideations Hematologic/ Lymphatic: Denies: Easy Bruising, Easy Bleeding VTE Information - Inpt Only VTE Present on Admission: No VTE Mechan Device Prophylaxis: Knee High MIKE Hose VTE Pharm Prophylaxis ordered?: No Reason prophylaxis not ordered:: Treatment Not Indicated Patient Problems: Active and Suspected Problems (Last Reviewed 09/08/17 @ 10:24 by Abhay Casillas) Debility (Acute) Acute kidney injury (Acute) - Physical Exam Vitals/I&O's: Vital Signs Temp Pulse Resp BP Pulse Ox 98.3 F 84 18 129/79 H 97 10/12/19 15:27 10/12/19 15:27 10/12/19 15:27 10/12/19 15:27 10/12/19 15:27 Oxygen Delivery Method Room Air Weight: 73.5 kg Body Mass Index (BMI) 21.4 General: Alert, Oriented x3, Cooperative HEENT: Atraumatic, PERRLA, EOMI, Normocephalic Neck: Supple, No JVD, Negative Carotid Bruits Lungs: Clear to auscultation, Normal air movement Cardiovascular: Regular rate, No murmurs Abdomen: Bowel Sounds Present, Soft, Non Tender Extremities: No edema, Capillary Refill Less than 3 Seconds Skin: No rashes, No breakdown Musculoskeletal: No Tenderness to Palpation of Joints or Extremities Neurological: Cranial nerves II-XII grossly intact Psych/Mental Status: Normal Affect, Appropriate Current Medications Albuterol Sulfate (Ventolin Hfa (Sp)) 2 puff INHALATION Q4H PRN PRN PRN Reason: SOB &/OR WHEEZING Ascorbic Acid (Vitamin C) 1,000 mg PO DAILY@0800 PENDING SALE TO [facility] Bisacodyl (Dulcolax) 10 mg PO DAILY PRN PRN PRN Reason: Constipation Gabapentin (Neurontin) 300 mg PO TID PENDING SALE TO [facility] Magnesium Hydroxide (Milk Of Magnesia) 30 ml PO DAILY PRN PRN Reason: Constipation Midodrine (Proamatine) 2.5 mg PO BID PENDING SALE TO [facility] Last Admin: 10/12/19 18:33 Dose: 2.5 mg Documented by: Mirtazapine (Remeron) 15 mg PO QHS PENDING SALE TO [facility] Multivitamins (Allbee W/C Caplet, Thera B Comp/C) [facility] Ondansetron HCl (Zofran Odt) 4 mg PO Q6H PRN PRN PRN Reason: NAUSEA/VOMITING Oxycodone HCl (Oxyir) 5 mg PO Q6H PRN PRN PRN Reason: Pain Score 1-10/10 Pantoprazole Sodium (Protonix) 40 mg PO BID PENDING SALE TO [facility] Last Admin: 10/12/19 18:33 Dose: 40 mg Documented by: Polyethylene Glycol (Miralax) 17 gm PO DAILY PENDING SALE TO [facility] Salmeterol Xinafoate (Serevent Diskus) 1 puff INHALATION Q12 PENDING SALE TO [facility] Last Admin: 10/12/19 18:32 Dose: 1 puff Documented by: Sucralfate (Carafate) 1 gm PO 1HR_ACHS PENDING SALE TO [facility] Tamsulosin HCl (Flomax) 0.4 mg PO BID@0830,1730 PENDING SALE TO [facility] Last Admin: 10/12/19 18:33 Dose: 0.4 mg Documented by: Tuberculin PPD (Tubersol, Aplisol, Ppd) 5 tu ID X1 ONE Stop: 10/13/19 10:01 Tuberculin PPD (Tubersol, Aplisol, Ppd) 5 tu ID X1 ONE Stop: 10/20/19 10:01 Vitamin E (Vitamin E) 400 [facility]ILY[facility] Assessment/Plan All Active Problems (Last Reviewed 09/08/17 @ 10:24 by Abhay Casillas) Debility (Acute) Acute kidney injury (Acute) Hyperkalemia (Acute) Urinary retention (Acute) Dehydration (Resolved) Hypophosphatemia (Resolved) 79 year old male with below past medical history hospitalized for lumbar spine surgery 09/28/[address] Alvin Martell, admitted to Inpatient rehab 10/02/2019, admitted to TCU with debility, here for rehabilitation, strengthening, prior to discharge home alone. * Debility - PT/OT. * Dysphagia - ST. * Pain - Tylenol 1000MG Q6H PRN pain (1-5), Oxycodone 5MG Q6H PRN pain (6-10). * Bowel - Miralax 17GM daily, Dulcolax 10MG daily PRN. * Adult immunization - Administer Prevnar 13, Pneumovax 23, Fluzone as necessary. * DVT prophylaxis - Not necessary, resident is ambulating well. * COPD - Serevent 1 puff inhaled Q12H, Albuterol MDI 2 puffs Q4H PRN. * Vitamin C deficiency - Vitamin C 1000MG daily. * Neuropathic pain - Gabapentin 300MG TID. * Orthostatic hypotension - Midodrine 2.5MG BID. * Appetite loss/insomnia/depression - Mirtazapine 15MG QHS. * Nausea - Zofran 4MG Q6H PRN. * GERD - Pantoprazole 40MG BID, Sucralfate 1GM QACHS. * BPH - Tamsulosin 0.4MG daily, resident refuses thomas catheter. * Vitamin B deficiency - Vitamin B Complex daily. * Vitamin E deficiency - Vitamin E 400IU daily.
[2019-10-12] MEDS: Gabapentin 300 MG Capsule PO (20:13)
[2019-10-12] MEDS: Sucralfate 1 GM Tablet PO (20:14)
[2019-10-12] MEDS: Mirtazapine 15 MG Tablet PO (20:14)
[2019-10-13] MEDS: Polyethylene Glycol 3350 17 GM PACKET PO (05:08)
[2019-10-13] MEDS: Sucralfate 1 GM Tablet PO ×4 (05:10→20:30)
[2019-10-13] MEDS: Gabapentin 300 MG Capsule PO ×3 (05:10→20:30)
[2019-10-13] MEDS: Pantoprazole Sodium 40 MG Tablet PO ×2 (05:10→16:52)
[2019-10-13] MEDS: Midodrine HCl 5 MG Tablet 2.5 MG PO ×2 (05:11→16:52)
[2019-10-13 07:00] LABS: Absolute Lymphocyte Count 0.68 X10^3/uL (0.83-4.51); Absolute Neutrophil Count 6.5 X10^3/uL (2.0-7.7); Basophil# 0.03 X10^3/uL; Basophil% 0.4 % (0-1); Eosinophil# 0.46 X10^3/uL; Eosinophils% 5.5 % (0-5); Hematocrit 33.4 % (40-54); Hemoglobin 10.4 g/dL (13.0-16.5); Lymphocyte # 0.68 X10^3/ul (4.0); Lymphocyte % 8.2 % (19-41); Mean Corp Hgb Conc 31.1 g/dL (32-36); Mean Corpuscular Hgb 29.4 pg (27.0-32.0); Mean Corpuscular Volume 94.4 fL (80-94); Mean Platelet Vol. 10.5 fl (6.2-12.0); Monocyte# 0.59 X10^3/uL; Monocyte% 7.1 % (0-10); NRBC Flagged by Analyzer 0 % (0-5); Neutrophil # 6.48 X10^3/uL (2.7-7.7); Neutrophil % 77.6 % (47-70); Platelet Count 396 K/mm3 (150-450); RBC Distribution Width CV 13.5 % (11.6-14.6); RBC Distribution Width SD 46.5 fl (35.1-43.9); Red Blood Count 3.54 M/mm3 (4.6-6.2); White Blood Count 8.3 K/mm3 (4.4-11.0)
[2019-10-13 07:24] LABS: Anion Gap 5 (5-15); BUN 58 mg/dL (7-18); BUN/Creat Ratio 30.1 RATIO (10-20); Calcium,Total 9.4 mg/dL (8.5-10.1); Chloride 107 mmol/L (98-107); Creatinine, Serum 1.93 mg/dL (0.70-1.30); EST Glomerular Filtration Rate 36 mL/min (>60); Est Glom Filt Rate - Afr Amer 44 mL/min (>60); Estimated Creatinine Clearance 33.32 ml/min; Glucose 97 mg/dL (74-106); Potassium 5.2 mmol/L (3.5-5.1); Sodium Level 140 mmol/L (136-145)
--- NOTE | 2019-10-13 08:17 | US_ITS ---
STUDY: ULTRASOUND - URINARY BLADDER REASON FOR EXAM: Male, 79 years old. URINARY RETENTION TECHNIQUE: Ultrasound evaluation of the urinary bladder was performed with real-time and static rhoades-scale imaging. COMPARISON: None. FINDINGS: There is no right UVJ calculus. There is a non-visualization of a right ureteral jet. There is no left UVJ calculus. There is a visualized left ureteral jet. The distended volume of the urinary bladder is 262 ml. The empty volume of the urinary bladder is 168 ml. The bladder wall is within normal limits. The bladder wall measures 4 mm. There is no demonstrated bladder wall mass lesion. There are no demonstrated bladder calculi. US/Post Void Residual Bladder IMPRESSION: Moderate degree of postvoid residual. Electronically Signed: Kb Garduno, at 12:53 EST , Service support ,
[2019-10-13] MEDS: Vitamin B Comp W-C Capsule 1 CAP PO (08:57)
[2019-10-13] MEDS: Ascorbic Acid 500 MG Tablet 1000 MG PO (08:57)
[2019-10-13] MEDS: Vitamin E 400 UNITS Capsule PO (08:57)
[2019-10-13] MEDS: Tamsulosin HCl 0.4 MG Capsule PO ×2 (08:57→16:52)
[2019-10-13 10:00] VITALS: RESP 16
--- NOTE | 2019-10-13 10:06 | PHA.CONS_ITS ---
<Anjelica Vivar M - Last Filed: 10/13/19 10:06> Progress Note - Pharmacy Subjective: TCU ADMISSION Objective: Allergies morphine Adverse Reaction (Verified 08/25/18 09:30) Vomiting DUST Allergy (Uncoded 11/14/16 10:43) Other SNEEZING MOLD Allergy (Uncoded 11/14/16 10:43) Other Current Medications Generic Name Dose Route Start Last Admin Trade Name Freq PRN Reason Stop Dose Admin Acetaminophen 1,000 mg 10/12/19 19:45 Tylenol PO Q6H PRN Pain Score 1-5/10 Albuterol Sulfate 2 puff 10/12/19 16:38 Ventolin Hfa (Sp) INHALATION Q4H PRN PRN SOB &/OR WHEEZING Ascorbic Acid 1,000 mg 10/13/19 08:00 10/13/19 08:57 Vitamin C PO 1,000 mg DAILY@0800 KEENAN Administration Bisacodyl 10 mg 10/12/19 16:38 Dulcolax PO DAILY PRN PRN Constipation Gabapentin 300 mg 10/12/19 22:00 10/13/19 05:10 Neurontin PO 300 mg TID KEENAN Administration Midodrine 2.5 mg 10/12/19 18:00 10/13/19 05:11 Proamatine PO 2.5 mg BID KEENAN Administration Mirtazapine 15 mg 10/12/19 22:00 10/12/19 20:14 Remeron PO 15 mg QHS KEENAN Administration Multivitamins 1 capsule 10/13/19 08:00 10/13/19 08:57 Allbee W/C Caplet, Thera B Comp/C PO 1 capsule DAILYCM KEENAN Administration Ondansetron HCl 4 mg 10/12/19 16:38 Zofran Odt PO Q6H PRN PRN NAUSEA/VOMITING Oxycodone HCl 5 mg 10/12/19 16:38 Oxyir PO Q6H PRN PRN Pain Score 6-10/10 Pantoprazole Sodium 40 mg 10/12/19 18:00 10/13/19 05:10 Protonix PO 40 mg BID KEENAN Administration Polyethylene Glycol 17 gm 10/13/19 06:00 10/13/19 05:08 Miralax PO 17 gm DAILY KEENAN Administration Salmeterol Xinafoate 1 puff 10/12/19 18:00 10/13/19 05:11 Serevent Diskus INHALATION 1 puff Q12 KEENAN Administration Sucralfate 1 gm 10/12/19 22:00 10/13/19 05:10 Carafate PO 1 gm 1HR_ACHS KEENAN Administration Tamsulosin HCl 0.4 mg 10/12/19 17:30 10/13/19 08:57 Flomax PO 0.4 mg BID@0830,1730 KEENAN Administration Tuberculin PPD 5 tu 10/20/19 10:00 Tubersol, Aplisol, Ppd ID 10/20/19 10:01 X1 ONE Vitamin E 400 units 10/13/19 08:00 10/13/19 08:57 Vitamin E PO 400 units DAILYCM KEENAN Administration Problem List (Last Reviewed 09/08/17 @ 10:24 by Abhay Casillas) Debility (Acute) Lumbar spinal stenosis (Chronic) Acute kidney injury (Acute) Chronic kidney disease (Chronic) Hypertension (Chronic) Neuropathic pain (Chronic) Pharyngeal cancer (Chronic) Vital Signs Temp Pulse Resp BP Pulse Ox 98.3 F 84 18 129/79 H 97 10/12/19 15:27 10/12/19 15:27 10/12/19 15:27 10/12/19 15:27 10/12/19 15:27 Oxygen Delivery Method Room Air Weight: 73.5 kg Body Mass Index (BMI) 21.4 Sodium 140 mmol/L (136-145) 10/13/19 06:50 Potassium 5.2 mmol/L (3.5-5.1) H 10/13/19 06:50 Chloride 107 mmol/L (98-107) 10/13/19 06:50 Carbon Dioxide 28.0 mmol/L (21.0-32.0) 10/13/19 06:50 Anion Gap 5 (5-15) 10/13/19 06:50 BUN 58 mg/dL (7-18) H 10/13/19 06:50 Creatinine 1.93 mg/dL (0.70-1.30) H 10/13/19 06:50 Est GFR (MDRD) Af Amer 44 mL/min (>60) L 10/13/19 06:50 Est GFR (MDRD) Non-Af 36 mL/min (>60) L 10/13/19 06:50 BUN/Creatinine Ratio 30.1 RATIO (10-20) H 10/13/19 06:50 Glucose 97 mg/dL (74-106) 10/13/19 06:50 Assessment/Plan: 1. Pain: Tylenol 1000mg PO Q6h PRN Pain 1-10, OxyIR 5mg PO Q6h PRN Pain 6- 10. Please continue to monitor for increased/decreased pain, PRN medication usage 2. COPD: Ventolin HFA 2 puff Q4h PRN SOB/Wheezing, Serevent Diskus 1 puff Q12hr. Please continue to monitor respiratory status, medication effectiveness, PRN medication usage 3. Neuropathic Pain: Gabapentin 300mg PO TID. Please continue to monitor for decreased neuropathy symptoms, renal function 4. Orthostatic hypotension: Midodrine 2.5mg PO BID. Please continue to monitor BP, Pulse 5. Nausea: Zofran 4mg PO Q6h PRN. Please continue to monitor for medication effectiveness, PRN usage 6. GERD: Protonix 40mg PO BID, Carafate 1g PO 1hr_ACHS. Please continue to monitor for increased/decreased GERD symptoms, medication effectiveness 7. BPH: Flomax 0.4mg PO BID. Please continue to monitor for urinary retention, BPH symptoms 8. General Wellness: Vitamin B complex 1 cap PO Daily, Vitamin C 1000mg PO Daily, Vitamin E 400 units PO daily. Please continue to monitor Psychotropic Medications: *9. Appetite loss/ Depression: Mirtazapine 15mg PO QHS. Please consider a GDR by 03/2020 if clinically appropriate Unnecessary Medications: None Bowel Regimen: Miralax 17g PO Daily, Bisacodyl 10mg PO Daily PRN. Please continue to monitor for S/S constipation/diarrhea, PRN usage. Date of Note:: 10/13/19 - Provider Comments Provider responsibility: Provider responsible to enter orders to implement recom mendations <Mike Anthony Chi - Last Filed: 10/13/19 13:49> Progress Note - Pharmacy Subjective: [] Objective: Allergies morphine Adverse Reaction (Verified 08/25/18 09:30) Vomiting DUST Allergy (Uncoded 11/14/16 10:43) Other SNEEZING MOLD Allergy (Uncoded 11/14/16 10:43) Other Current Medications Generic Name Dose Route Start Last Admin Trade Name Freq PRN Reason Stop Dose Admin Acetaminophen 1,000 mg 10/12/19 19:45 Tylenol PO Q6H PRN Pain Score 1-5/10 Albuterol Sulfate 2 puff 10/12/19 16:38 Ventolin Hfa (Sp) INHALATION Q4H PRN PRN SOB &/OR WHEEZING Ascorbic Acid 1,000 mg 10/13/19 08:00 10/13/19 08:57 Vitamin C PO 1,000 mg DAILY@0800 KEENAN Administration Bisacodyl 10 mg 10/12/19 16:38 Dulcolax PO DAILY PRN PRN Constipation Gabapentin 300 mg 10/12/19 22:00 10/13/19 05:10 Neurontin PO 300 mg TID KEENAN Administration Midodrine 2.5 mg 10/12/19 18:00 10/13/19 05:11 Proamatine PO 2.5 mg BID KEENAN Administration Mirtazapine 15 mg 10/12/19 22:00 10/12/19 20:14 Remeron PO 15 mg QHS KEENAN Administration Multivitamins 1 capsule 10/13/19 08:00 10/13/19 08:57 Allbee W/C Caplet, Thera B Comp/C PO 1 capsule DAILYCM KEENAN Administration Ondansetron HCl 4 mg 10/12/19 16:38 Zofran Odt PO Q6H PRN PRN NAUSEA/VOMITING Oxycodone HCl 5 mg 10/12/19 16:38 Oxyir PO Q6H PRN PRN Pain Score 6-10/10 Pantoprazole Sodium 40 mg 10/12/19 18:00 10/13/19 05:10 Protonix PO 40 mg BID KEENAN Administration Polyethylene Glycol 17 gm 10/13/19 06:00 10/13/19 05:08 Miralax PO 17 gm DAILY KEENAN Administration Salmeterol Xinafoate 1 puff 10/12/19 18:00 10/13/19 05:11 Serevent Diskus INHALATION 1 puff Q12 KEENAN Administration Sucralfate 1 gm 10/12/19 22:00 10/13/19 10:49 Carafate PO 1 gm 1HR_ACHS KEENAN Administration Tamsulosin HCl 0.4 mg 10/12/19 17:30 10/13/19 08:57 Flomax PO 0.4 mg BID@0830,1730 [facility] Administration Tuberculin PPD 5 tu 10/20/19 10:00 Tubersol, Aplisol, Ppd ID 10/20/19 10:01 X1 ONE Vitamin E 400 units 10/13/19 08:00 10/13/19 08:57 Vitamin E PO 400 units DAILYCM KEENAN Administration Problem List (Last Reviewed 09/08/17 @ 10:24 by Abhay Casillas) Debility (Acute) Lumbar spinal stenosis (Chronic) Acute kidney injury (Acute) Chronic kidney disease (Chronic) Hypertension (Chronic) Neuropathic pain (Chronic) Pharyngeal cancer (Chronic) Vital Signs Temp Pulse Resp BP Pulse Ox 98.3 F 84 16 129/79 H 97 10/12/19 15:27 10/12/19 15:27 10/13/19 10:00 10/12/19 15:27 10/12/19 15:27 Oxygen Delivery Method Room Air Weight: 71.532 kg Body Mass Index (BMI) 21.4 Sodium 140 mmol/L (136-145) 10/13/19 06:50 Potassium 5.2 mmol/L (3.5-5.1) H 10/13/19 06:50 Chloride 107 mmol/L (98-107) 10/13/19 06:50 Carbon Dioxide 28.0 mmol/L (21.0-32.0) 10/13/19 06:50 Anion Gap 5 (5-15) 10/13/19 06:50 BUN 58 mg/dL (7-18) H 10/13/19 06:50 Creatinine 1.93 mg/dL (0.70-1.30) H 10/13/19 06:50 Est GFR (MDRD) Af Amer 44 mL/min (>60) L 10/13/19 06:50 Est GFR (MDRD) Non-Af 36 mL/min (>60) L 10/13/19 06:50 BUN/Creatinine Ratio 30.1 RATIO (10-20) H 10/13/19 06:50 Glucose 97 mg/dL (74-106) 10/13/19 06:50 Assessment/Plan: Psychotropic Medications: Unnecessary Medications: Bowel Regimen: - Provider Comments Provider responsibility: Provider responsible to enter orders to implement recommendations Provider Comments to Recommendations by Pharmacy: Agree
--- NOTE | 2019-10-13 10:11 | CASEMGMT ---
Social Work Reviewed and agreed with social work documentation on this date. Hansa Kerr, [employer]
[2019-10-13] MEDS: Tuberculin,Purif.prot.deriv. 50 TU/ML Vial 5 ML ID (10:49)
[2019-10-13 15:38] VITALS: BP 118/77; PULSE 88; RESP 18; TEMP 37.5; O2SAT 92
[2019-10-13] MEDS: oxyCODONE 5 MG Tablet PO (20:30)
[2019-10-13] MEDS: Mirtazapine 15 MG Tablet PO (20:30)
[2019-10-14] MEDS: Midodrine HCl 5 MG Tablet 2.5 MG PO ×2 (06:07→16:55)
[2019-10-14] MEDS: Sucralfate 1 GM Tablet PO ×4 (06:07→21:32)
[2019-10-14] MEDS: Gabapentin 300 MG Capsule PO ×3 (06:08→21:32)
[2019-10-14] MEDS: Pantoprazole Sodium 40 MG Tablet PO ×2 (06:08→16:55)
[2019-10-14] MEDS: Polyethylene Glycol 3350 17 GM PACKET PO (06:11)
[2019-10-14] MEDS: oxyCODONE 5 MG Tablet PO (06:13)
[2019-10-14] MEDS: Tamsulosin HCl 0.4 MG Capsule PO ×2 (08:04→16:54)
[2019-10-14] MEDS: Vitamin B Comp W-C Capsule 1 CAP PO (08:04)
[2019-10-14] MEDS: Ascorbic Acid 500 MG Tablet 1000 MG PO (08:04)
[2019-10-14] MEDS: Vitamin E 400 UNITS Capsule PO (08:04)
[2019-10-14] MEDS: Sodium Polystyrene Sulfonate 15 GM/60 ML UDC PO (12:08)
[2019-10-14 15:28] VITALS: BP 118/75; PULSE 119; RESP 17; TEMP 37.1; O2SAT 91
[2019-10-14 15:31] VITALS: PULSE 108
--- NOTE | 2019-10-14 19:41 | RAD_ITS ---
STUDY: X-RAY CHEST REASON FOR EXAM: Male, 79 years old. COUGH, FEVER TECHNIQUE: PA and 2 lateral views of the chest. COMPARISON: 10/02/2019 FINDINGS: There are interstitial fibrotic changes of the lungs. There is no demonstrated pleural abnormality. Normal size heart. Normal mediastinum and tanner. Normal visualized pulmonary arteries. Normal visualized aortic arch and descending thoracic aorta. Normal visualized thoracic spine. Normal visualized ribs, clavicles, and shoulders. There is no demonstrated abnormality of the visualized soft tissue structures of the upper abdomen. RAD/Chest PA and Lateral IMPRESSION: Chronic interstitial changes, no superimposed acute pulmonary process Electronically Signed: Orlando Moulton MD at 20:54 EST , Service support ,
--- NOTE | 2019-10-14 19:52 | NURSING ---
Dr. Anthony updated on temp 100F, HR 134, BP 143/95 O2 95% RA, crackles anterior and posterior lower bases. New order for CXR PA and lateral. Duoneb Q6, albuterol Q2 PRN. 1L bolus then NS running at 60cc/hr. CBC 2/2, and Levaquin 500mg IV daily.
[2019-10-14 19:54] VITALS: BP 143/95; PULSE 134; RESP 18; TEMP 37.7; O2SAT 95
[2019-10-14] MEDS: 0.9% Normal Saline 1,000 ML 999 ML IV (20:22)
[2019-10-14] MEDS: Acetaminophen 500 MG Tablet 1000 MG PO (20:28)
[2019-10-14] MEDS: 0.9% Normal Saline 1,000 ML 60 ML IV (21:28)
[2019-10-14] MEDS: levoFLOXacin IV 500 MG/100 ML BAG 100 MG IV (21:29)
[2019-10-14] MEDS: Mirtazapine 15 MG Tablet PO (21:32)
[2019-10-14 21:35] VITALS: TEMP 37.5
[2019-10-15] VITALS (10 sets, daily range): BP systolic 99; BP diastolic 58; PULSE 79–110; RESP 16–20; TEMP 36.8–37.2; O2SAT 90–98
[2019-10-15] MEDS: Gabapentin 300 MG Capsule PO ×3 (05:36→21:28)
[2019-10-15] MEDS: Sucralfate 1 GM Tablet PO ×3 (05:36→21:25)
[2019-10-15] MEDS: Midodrine HCl 5 MG Tablet 2.5 MG PO ×2 (05:36→18:03)
[2019-10-15] MEDS: Pantoprazole Sodium 40 MG Tablet PO ×2 (05:36→18:03)
[2019-10-15 06:03] LABS: Absolute Lymphocyte Count 0.24 X10^3/uL (0.83-4.51); Absolute Neutrophil Count 7.1 X10^3/uL (2.0-7.7); Basophil# 0.03 X10^3/uL; Basophil% 0.4 % (0-1); Eosinophil# 0.15 X10^3/uL; Eosinophils% 1.8 % (0-5); Hematocrit 34.1 % (40-54); Hemoglobin 10.5 g/dL (13.0-16.5); Lymphocyte # 0.24 X10^3/ul (4.0); Lymphocyte % 2.8 % (19-41); Mean Corp Hgb Conc 30.8 g/dL (32-36); Mean Corpuscular Hgb 29.1 pg (27.0-32.0); Mean Corpuscular Volume 94.5 fL (80-94); Mean Platelet Vol. 11.1 fl (6.2-12.0); Monocyte# 0.93 X10^3/uL; Monocyte% 10.9 % (0-10); NRBC Flagged by Analyzer 0 % (0-5); Neutrophil # 7.07 X10^3/uL (2.7-7.7); POSITIVE DIFFERENTIAL YES; Platelet Count 351 K/mm3 (150-450); RBC Distribution Width CV 13.6 % (11.6-14.6); RBC Distribution Width SD 46.5 fl (35.1-43.9); Red Blood Count 3.61 M/mm3 (4.6-6.2); White Blood Count 8.5 K/mm3 (4.4-11.0)
[2019-10-15 06:05] LABS: Differential Indicated SCAN CRITERIA MET
[2019-10-15 06:08] LABS: Anion Gap 6 (5-15); BUN 44 mg/dL (7-18); BUN/Creat Ratio 23.2 RATIO (10-20); Chloride 106 mmol/L (98-107); EST Glomerular Filtration Rate 37 mL/min (>60); Est Glom Filt Rate - Afr Amer 44 mL/min (>60); Estimated Creatinine Clearance 32.94 ml/min; Glucose 100 mg/dL (74-106); Potassium 5.1 mmol/L (3.5-5.1); Sodium Level 139 mmol/L (136-145)
[2019-10-15 06:40] LABS: Differential Comment SCANNED
[2019-10-15] MEDS: Ipratropium/Albuterol Sulfate 3 ML AMPUL.NEB INHALATION ×3 (07:08→19:00)
--- NOTE | 2019-10-15 07:15 | NURSING ---
When giving AM meds pt took a sip of water and began to have a moist nonproductive cough.
[2019-10-15] MEDS: Ascorbic Acid 500 MG Tablet 1000 MG PO (08:19)
[2019-10-15] MEDS: Tamsulosin HCl 0.4 MG Capsule PO ×2 (08:19→18:03)
--- NOTE | 2019-10-15 08:29 | NURSING ---
Addendum entered by Willa Roach 10/15/19 11:59: sat 90% on RA, applied oxygen 2 liters. pt w/moist productive cough w/yellowish clear sputum. crackles to RT base but clears with coughing at times. temp 99 orally, tylenol given. feeling slightly better than this AM. pt drinking chicken broth, eating jello and having gingerale. pt spoke with with family and states that the kids' mother was sick but pt did not know if it was respiratory/flu related. kids were in visiting yesterday according to pt. pt remains in droplet precautions until results [facility] lab[facility]93[facility], with return of 500cc clear yellow urine. IVF infusing @ 60cc/hr. Addendum entered by Willa Roach 10/15/19 11:25: spoke with Doug in [place], he will be up to obtain resp panel as ordered Original Note: temp 98.8 orally, pt feels drained, refused to eat brkfst. cough up thin clear mucus, nasal congestion noted. voice raspy as well. faint crackles to RT LLL, otherwise clear. pt ambulating very unsteady w/cane this AM. Dr Anthony notified, new order for resp panel.
[2019-10-15] MEDS: Acetaminophen 500 MG Tablet 1000 MG PO (11:58)
[2019-10-15] MEDS: 0.9% Normal Saline 1,000 ML 60 ML IV (13:25)
--- NOTE | 2019-10-15 18:34 | NURSING ---
prevoid bladder scan 640cc, voided 250cc, post void scan 275cc. pt not wanting st cathed at this time. resting in bed, oxygen maintained. call light in reach. pt ambulating better, more active this evening. feeling better.
[2019-10-15] MEDS: Mirtazapine 15 MG Tablet PO (21:25)
[2019-10-15] MEDS: levoFLOXacin IV 250 MG/50 ML BAG 100 MG IV (21:27)
--- NOTE | 2019-10-15 22:49 | NURSING ---
Pt bladder scanned for 283. Pt refusing to be straight cath at this time.
[2019-10-16] MEDS: Polyethylene Glycol 3350 17 GM PACKET PO (05:15)
[2019-10-16] MEDS: Gabapentin 300 MG Capsule PO ×3 (05:16→21:03)
[2019-10-16] MEDS: Pantoprazole Sodium 40 MG Tablet PO ×2 (05:17→18:06)
[2019-10-16] MEDS: Sucralfate 1 GM Tablet PO ×4 (05:17→21:03)
[2019-10-16] MEDS: Midodrine HCl 5 MG Tablet 2.5 MG PO ×2 (05:18→18:06)
[2019-10-16] MEDS: 0.9% Normal Saline 1,000 ML 60 ML IV (06:47)
[2019-10-16 07:11] VITALS: PULSE 102; RESP 18; O2SAT 94
[2019-10-16] MEDS: Ipratropium/Albuterol Sulfate 3 ML AMPUL.NEB INHALATION ×3 (07:11→20:40)
[2019-10-16] MEDS: Tamsulosin HCl 0.4 MG Capsule PO ×2 (08:21→18:06)
[2019-10-16] MEDS: Vitamin E 400 UNITS Capsule PO (08:21)
[2019-10-16] MEDS: Vitamin B Comp W-C Capsule 1 CAP PO (08:21)
[2019-10-16] MEDS: Ascorbic Acid 500 MG Tablet 1000 MG PO (08:21)
--- NOTE | 2019-10-16 11:13 | NURSING ---
Notified by lab that the patient is positive for influenza A type H1. information repeated back.
--- NOTE | 2019-10-16 11:21 | NURSING ---
Addendum entered by Frances Villavicenico 10/16/19 11:24: Order was for Tamiflu 30mg BID for 5 days. Original Note: Notified Dr. Anthony of patient's lab positive for influenza A type H1. Received order for Tamaflu 30mg for 5 days. Order repeated back, will add order.
[2019-10-16 12:15] VITALS: PULSE 98; RESP 18; O2SAT 98
[2019-10-16 13:07] VITALS: PULSE 101; RESP 18
--- NOTE | 2019-10-16 13:18 | NURSING ---
Addendum entered by Yara Montalvo 10/16/19 16:43: pt voided 375ml scanned for 427ml, refused st cath Original Note: pt void for 330 ml, scan for 591, pt refused st cath at this time
[2019-10-16 14:34] VITALS: BP 108/72; PULSE 108; RESP 20; TEMP 36.8; O2SAT 96
[2019-10-16] MEDS: Oseltamivir Phosphate 30 MG Capsule PO (18:07)
[2019-10-16 20:40] VITALS: PULSE 103; RESP 18
[2019-10-16] MEDS: Mirtazapine 15 MG Tablet PO (21:03)
[2019-10-16] MEDS: 0.9% Saline Lock 10 ML Syringe IV (21:03)
[2019-10-16] MEDS: levoFLOXacin IV 250 MG/50 ML BAG 100 MG IV (21:10)
--- NOTE | 2019-10-16 21:14 | NURSING ---
Addendum entered by Rowena Quinn 10/17/19 06:09: 0540- Pt voided 500mL, post-void residual 295mL per bladder scan. Pt refusing straight cath at this time, denies pressure/urge to urinate. Educated on risk of infection with residual urines. Addendum entered by Rowena Quinn 10/16/19 23:09: 2300- Pt voided 500mL, post-void residual on bladder scan 220mL. Pt denies discomfort/urge to urinate more. Original Note: 2109- Bladder scan >327mL. Pt refusing straight cath at this time. States he will try to urinate after IV antibiotic completed. Will monitor.
[2019-10-17] MEDS: Polyethylene Glycol 3350 17 GM PACKET PO (05:13)
[2019-10-17] MEDS: Sucralfate 1 GM Tablet PO ×4 (05:13→20:59)
[2019-10-17] MEDS: Gabapentin 300 MG Capsule PO ×3 (05:13→20:59)
[2019-10-17] MEDS: Oseltamivir Phosphate 30 MG Capsule PO ×2 (05:13→16:58)
[2019-10-17] MEDS: Midodrine HCl 5 MG Tablet 2.5 MG PO ×2 (05:14→16:58)
[2019-10-17] MEDS: 0.9% Saline Lock 10 ML Syringe IV ×2 (05:14→20:59)
[2019-10-17] MEDS: Pantoprazole Sodium 40 MG Tablet PO ×2 (05:14→16:58)
[2019-10-17 06:52] VITALS: PULSE 101; RESP 20; O2SAT 96
[2019-10-17] MEDS: Ipratropium/Albuterol Sulfate 3 ML AMPUL.NEB INHALATION ×3 (06:52→19:56)
[2019-10-17] MEDS: Tamsulosin HCl 0.4 MG Capsule PO ×2 (08:12→16:58)
[2019-10-17] MEDS: Ascorbic Acid 500 MG Tablet 1000 MG PO (08:12)
[2019-10-17] MEDS: Vitamin B Comp W-C Capsule 1 CAP PO (08:12)
[2019-10-17] MEDS: Vitamin E 400 UNITS Capsule PO (08:12)
[2019-10-17 12:47] VITALS: PULSE 102; RESP 20
[2019-10-17 15:57] VITALS: BP 104/74; PULSE 120; RESP 20; TEMP 37.4; O2SAT 96
[2019-10-17 19:56] VITALS: PULSE 116; RESP 18; O2SAT 95
[2019-10-17] MEDS: Mirtazapine 15 MG Tablet PO (20:59)
[2019-10-17] MEDS: levoFLOXacin IV 250 MG/50 ML BAG 100 MG IV (20:59)
--- NOTE | 2019-10-17 22:18 | NURSING ---
Pt remained in droplet isolation during shift d/t influenza A. All care provided in room.
[2019-10-18] MEDS: Polyethylene Glycol 3350 17 GM PACKET PO (05:15)
[2019-10-18] MEDS: Pantoprazole Sodium 40 MG Tablet PO ×2 (05:15→16:37)
[2019-10-18] MEDS: Gabapentin 300 MG Capsule PO ×3 (05:15→21:45)
[2019-10-18] MEDS: Midodrine HCl 5 MG Tablet 2.5 MG PO ×2 (05:16→16:37)
[2019-10-18] MEDS: Oseltamivir Phosphate 30 MG Capsule PO ×2 (05:16→16:37)
[2019-10-18] MEDS: Sucralfate 1 GM Tablet PO ×4 (05:16→21:45)
[2019-10-18 06:15] LABS: Anion Gap 5 (5-15); BUN 35 mg/dL (7-18); BUN/Creat Ratio 20.3 RATIO (10-20); Chloride 105 mmol/L (98-107); Creatinine, Serum 1.72 mg/dL (0.70-1.30); EST Glomerular Filtration Rate 41 mL/min (>60); Est Glom Filt Rate - Afr Amer 50 mL/min (>60); Estimated Creatinine Clearance 36.52 ml/min; Glucose 91 mg/dL (74-106); Potassium 4.5 mmol/L (3.5-5.1); Sodium Level 138 mmol/L (136-145)
[2019-10-18 06:53] VITALS: PULSE 104; RESP 16; O2SAT 97
[2019-10-18] MEDS: Ipratropium/Albuterol Sulfate 3 ML AMPUL.NEB INHALATION ×3 (06:53→20:30)
[2019-10-18] MEDS: Tamsulosin HCl 0.4 MG Capsule PO ×2 (07:57→16:37)
[2019-10-18] MEDS: Vitamin E 400 UNITS Capsule PO (07:57)
[2019-10-18] MEDS: oxyCODONE 5 MG Tablet PO (07:58)
[2019-10-18] MEDS: Ascorbic Acid 500 MG Tablet 1000 MG PO (07:58)
[2019-10-18] MEDS: Vitamin B Comp W-C Capsule 1 CAP PO (07:58)
--- NOTE | 2019-10-18 10:18 | CASEMGMT ---
Social Work IDT met with patient for care plan meeting. Discussed patient's progress in therapy prior to pt getting the flu. Pt was SBA for transfers and all ADLs, walking 275 ft with a cane, competed 5 steps all at SBA. Could ride the NuStep for 10 mins. Pt is on a low sodium/potassium diet, and getting Ensure. Pt is currently on O2 and IV ATB until 10/22. Pt lives at home alone and continues to choose to have a regular texture/liquid diet against medical advice. Pt expressed praise to TCU staff. Explained Medicare coverage. Will continue to follow. Hansa Kerr MSW MARINE MECHANIC
--- NOTE | 2019-10-18 12:17 | NURSING ---
Pt remained in droplet isolation during shift d/t influenza A. All care provided in room.
[2019-10-18 13:06] VITALS: PULSE 104; RESP 18
[2019-10-18] MEDS: 0.9% Saline Lock 10 ML Syringe IV ×2 (13:26→21:44)
--- NOTE | 2019-10-18 13:42 | NURSING ---
Addendum entered by Rosette Murillo 10/18/19 18:24: DR. CONRAD AWARE OF REFUSAL TO STRAIGHT CATH. Original Note: BLADER SCAN SHOWED 387ML. POST VOID. PT. REFUSED STRAIGHT CATH AT THIS TIME. RN WILL NOTIFY DR. CONRAD.
[2019-10-18 15:51] VITALS: BP 98/62; PULSE 102; RESP 14; TEMP 36.5; O2SAT 94
[2019-10-18 20:30] VITALS: PULSE 102; RESP 16
[2019-10-18] MEDS: Mirtazapine 15 MG Tablet PO (21:45)
[2019-10-18] MEDS: levoFLOXacin IV 250 MG/50 ML BAG 100 MG IV (21:45)
--- NOTE | 2019-10-18 23:59 | NURSING ---
Pt remained in droplet isolation during shift d/t influenza A. All care provided in room.
[2019-10-19] MEDS: Polyethylene Glycol 3350 17 GM PACKET PO (05:13)
[2019-10-19] MEDS: Pantoprazole Sodium 40 MG Tablet PO ×2 (05:13→16:49)
[2019-10-19] MEDS: Oseltamivir Phosphate 30 MG Capsule PO ×2 (05:13→16:50)
[2019-10-19] MEDS: Sucralfate 1 GM Tablet PO ×4 (05:13→22:15)
[2019-10-19] MEDS: Midodrine HCl 5 MG Tablet 2.5 MG PO ×2 (05:13→16:49)
[2019-10-19] MEDS: Gabapentin 300 MG Capsule PO ×3 (05:13→22:15)
[2019-10-19] MEDS: Sodium Chloride 0.65% 1 SPRAY SPRAY.BTL 2 SPRAY NASAL (05:15)
--- NOTE | 2019-10-19 06:37 | NURSING ---
Bladder scan 356, pt refusing straight cath. Will continue to monitor.
[2019-10-19 06:45] VITALS: PULSE 79; RESP 16; O2SAT 95
[2019-10-19] MEDS: Ipratropium/Albuterol Sulfate 3 ML AMPUL.NEB INHALATION (06:45)
[2019-10-19] MEDS: Vitamin E 400 UNITS Capsule PO (08:13)
[2019-10-19] MEDS: Vitamin B Comp W-C Capsule 1 CAP PO (08:13)
[2019-10-19] MEDS: Ascorbic Acid 500 MG Tablet 1000 MG PO (08:13)
[2019-10-19] MEDS: Tamsulosin HCl 0.4 MG Capsule PO ×2 (08:13→16:49)
[2019-10-19 13:30] VITALS: BP 108/69; PULSE 96; RESP 16; TEMP 36.6; O2SAT 93
--- NOTE | 2019-10-19 16:56 | CASEMGMT ---
Reviewed and agreed with social work management intern documentation on this date. RUBIO Rodríguez
--- NOTE | 2019-10-19 18:11 | NURSING ---
DR CONRAD REVIEWED US OF BLADDER, NO NEW ORDERS.
[2019-10-19] MEDS: levoFLOXacin IV 250 MG/50 ML BAG 100 MG IV (22:14)
[2019-10-19] MEDS: Mirtazapine 15 MG Tablet PO (22:15)
[2019-10-20 05:54] LABS: Absolute Lymphocyte Count 0.62 X10^3/uL (0.83-4.51); Basophil# 0.02 X10^3/uL; Basophil% 0.4 % (0-1); Eosinophil# 0.43 X10^3/uL; Eosinophils% 7.8 % (0-5); Hematocrit 31.6 % (40-54); Hemoglobin 9.9 g/dL (13.0-16.5); Lymphocyte # 0.62 X10^3/ul (4.0); Lymphocyte % 11.2 % (19-41); Mean Corp Hgb Conc 31.3 g/dL (32-36); Mean Corpuscular Hgb 28.8 pg (27.0-32.0); Mean Corpuscular Volume 91.9 fL (80-94); Mean Platelet Vol. 10.8 fl (6.2-12.0); Monocyte# 0.48 X10^3/uL; Monocyte% 8.7 % (0-10); NRBC Flagged by Analyzer 0 % (0-5); Neutrophil # 3.96 X10^3/uL (2.7-7.7); Neutrophil % 71.5 % (47-70); Platelet Count 293 K/mm3 (150-450); RBC Distribution Width SD 43.5 fl (35.1-43.9); Red Blood Count 3.44 M/mm3 (4.6-6.2); White Blood Count 5.5 K/mm3 (4.4-11.0)
[2019-10-20] MEDS: Gabapentin 300 MG Capsule PO ×3 (06:12→20:48)
[2019-10-20] MEDS: Pantoprazole Sodium 40 MG Tablet PO ×2 (06:12→16:29)
[2019-10-20] MEDS: Midodrine HCl 5 MG Tablet 2.5 MG PO ×2 (06:12→16:29)
[2019-10-20] MEDS: Sucralfate 1 GM Tablet PO ×4 (06:12→20:48)
[2019-10-20] MEDS: Polyethylene Glycol 3350 17 GM PACKET PO (06:12)
[2019-10-20 06:13] LABS: Anion Gap 4 (5-15); BUN 43 mg/dL (7-18); BUN/Creat Ratio 25.3 RATIO (10-20); Calcium,Total 8.9 mg/dL (8.5-10.1); Chloride 104 mmol/L (98-107); EST Glomerular Filtration Rate 42 mL/min (>60); Est Glom Filt Rate - Afr Amer 51 mL/min (>60); Estimated Creatinine Clearance 36.95 ml/min; Glucose 89 mg/dL (74-106); Potassium 4.9 mmol/L (3.5-5.1); Sodium Level 138 mmol/L (136-145)
[2019-10-20] MEDS: Oseltamivir Phosphate 30 MG Capsule PO ×2 (06:13→16:28)
[2019-10-20] MEDS: Vitamin B Comp W-C Capsule 1 CAP PO (08:24)
[2019-10-20] MEDS: Vitamin E 400 UNITS Capsule PO (08:24)
[2019-10-20] MEDS: Ascorbic Acid 500 MG Tablet 1000 MG PO (08:24)
[2019-10-20] MEDS: Tamsulosin HCl 0.4 MG Capsule PO ×2 (08:24→16:29)
[2019-10-20] MEDS: 0.9% Saline Lock 10 ML Syringe IV (10:34)
[2019-10-20] MEDS: Tuberculin,Purif.prot.deriv. 50 TU/ML Vial 5 ML ID (10:34)
--- NOTE | 2019-10-20 11:59 | NURSING ---
R' REMAINS IN DROPLET PRECAUTIONS D/T INFLUENZA. ALL CARE PROVIDED IN ROOM.
[2019-10-20 14:32] VITALS: BP 110/64; PULSE 99; RESP 18; TEMP 36.9; O2SAT 98
--- NOTE | 2019-10-20 15:53 | CASEMGMT ---
Social Work Reviewed and agreed with SW documentation on this date. Hansa Kerr, RAGS LABORER SHEET ROCK FINISHER
[2019-10-20] MEDS: Mirtazapine 15 MG Tablet PO (20:49)
[2019-10-21] MEDS: Polyethylene Glycol 3350 17 GM PACKET PO (05:40)
[2019-10-21] MEDS: Oseltamivir Phosphate 30 MG Capsule PO ×2 (05:40→17:15)
[2019-10-21] MEDS: Sucralfate 1 GM Tablet PO ×4 (05:41→20:31)
[2019-10-21] MEDS: Gabapentin 300 MG Capsule PO ×3 (05:41→20:32)
[2019-10-21] MEDS: Midodrine HCl 5 MG Tablet 2.5 MG PO ×2 (05:41→17:15)
[2019-10-21] MEDS: Pantoprazole Sodium 40 MG Tablet PO ×2 (05:41→17:15)
[2019-10-21] MEDS: Vitamin E 400 UNITS Capsule PO (08:03)
[2019-10-21] MEDS: Vitamin B Comp W-C Capsule 1 CAP PO (08:03)
[2019-10-21] MEDS: Tamsulosin HCl 0.4 MG Capsule PO ×2 (08:03→17:15)
[2019-10-21] MEDS: Ascorbic Acid 500 MG Tablet 1000 MG PO (08:03)
[2019-10-21 14:53] VITALS: BP 117/77; PULSE 95; RESP 18; TEMP 36.6; O2SAT 97
[2019-10-21] MEDS: Mirtazapine 15 MG Tablet PO (20:32)
[2019-10-22] MEDS: Gabapentin 300 MG Capsule PO ×3 (06:17→19:55)
[2019-10-22] MEDS: Sucralfate 1 GM Tablet PO ×4 (06:17→19:55)
[2019-10-22] MEDS: Midodrine HCl 5 MG Tablet 2.5 MG PO ×2 (06:18→16:50)
[2019-10-22] MEDS: Pantoprazole Sodium 40 MG Tablet PO ×2 (06:18→16:51)
[2019-10-22] MEDS: Polyethylene Glycol 3350 17 GM PACKET PO (06:18)
[2019-10-22] MEDS: Vitamin B Comp W-C Capsule 1 CAP PO (07:40)
[2019-10-22] MEDS: Vitamin E 400 UNITS Capsule PO (07:41)
[2019-10-22] MEDS: Ascorbic Acid 500 MG Tablet 1000 MG PO (07:41)
[2019-10-22] MEDS: Tamsulosin HCl 0.4 MG Capsule PO ×2 (07:41→16:50)
[2019-10-22 14:48] VITALS: BP 100/63; PULSE 88; RESP 20; TEMP 36.3; O2SAT 99
[2019-10-22] MEDS: Mirtazapine 15 MG Tablet PO (19:55)
[2019-10-22] MEDS: Sodium Chloride 0.65% 1 SPRAY SPRAY.BTL 2 SPRAY NASAL (20:07)
--- NOTE | 2019-10-23 00:39 | NURSING ---
Pt remained in droplet isolation during shift d/t influenza. All care provided in room.
[2019-10-23] MEDS: Polyethylene Glycol 3350 17 GM PACKET PO (05:44)
[2019-10-23] MEDS: Gabapentin 300 MG Capsule PO ×3 (05:44→20:35)
[2019-10-23] MEDS: Pantoprazole Sodium 40 MG Tablet PO ×2 (05:45→17:14)
[2019-10-23] MEDS: Sucralfate 1 GM Tablet PO ×4 (05:45→20:35)
[2019-10-23] MEDS: Midodrine HCl 5 MG Tablet 2.5 MG PO ×2 (05:47→17:14)
--- NOTE | 2019-10-23 06:24 | NURSING ---
Pt reports oxygen being new, pt did not wear prior to hospital admission. O2 decreased from 2L to 1L, pt stating 97%. Will continue to monitor.
[2019-10-23 06:27] VITALS: O2SAT 93
[2019-10-23] MEDS: Ascorbic Acid 500 MG Tablet 1000 MG PO (08:24)
[2019-10-23] MEDS: Vitamin B Comp W-C Capsule 1 CAP PO (08:24)
[2019-10-23] MEDS: Tamsulosin HCl 0.4 MG Capsule PO ×2 (08:24→17:14)
[2019-10-23] MEDS: Vitamin E 400 UNITS Capsule PO (08:24)
[2019-10-23 10:00] VITALS: PULSE 78; RESP 14; O2SAT 93
[2019-10-23 14:37] VITALS: BP 103/64; PULSE 94; RESP 18; TEMP 36.7; O2SAT 92
--- NOTE | 2019-10-23 16:47 | CASEMGMT ---
Social Work Reviewed and agreed with SW business management intern documentation on this date. Hansa Kerr, PHLEBOTOMY MANAGER MAIN ENTREE COOK AND CASHIER
[2019-10-23] MEDS: Mirtazapine 15 MG Tablet PO (20:35)
[2019-10-24] MEDS: Gabapentin 300 MG Capsule PO ×3 (05:57→21:15)
[2019-10-24] MEDS: Polyethylene Glycol 3350 17 GM PACKET PO (05:57)
[2019-10-24] MEDS: Sucralfate 1 GM Tablet PO ×4 (05:57→21:15)
[2019-10-24] MEDS: Pantoprazole Sodium 40 MG Tablet PO ×2 (05:57→17:07)
[2019-10-24] MEDS: Midodrine HCl 5 MG Tablet 2.5 MG PO ×2 (05:57→17:07)
[2019-10-24 06:11] VITALS: O2SAT 93
[2019-10-24] MEDS: Vitamin E 400 UNITS Capsule PO (07:37)
[2019-10-24] MEDS: Vitamin B Comp W-C Capsule 1 CAP PO (07:37)
[2019-10-24] MEDS: Ascorbic Acid 500 MG Tablet 1000 MG PO (07:37)
[2019-10-24] MEDS: Tamsulosin HCl 0.4 MG Capsule PO ×2 (07:37→17:07)
[2019-10-24 07:51] VITALS: O2SAT 96
--- NOTE | 2019-10-24 14:01 | NURSING ---
R' REMAINS IN DROPLET PRECAUTIONS D/T INFLUENZA. ALL CARE PROVIDED IN ROOM.
[2019-10-24 14:16] VITALS: BP 114/71; PULSE 95; RESP 17; TEMP 36.6; O2SAT 95
[2019-10-24] MEDS: Mirtazapine 15 MG Tablet PO (21:15)
--- NOTE | 2019-10-24 21:57 | NURSING ---
Pt in droplet isolation precautions during shift. All care provided in room.
[2019-10-25] MEDS: Sucralfate 1 GM Tablet PO ×4 (05:32→20:57)
[2019-10-25] MEDS: Gabapentin 300 MG Capsule PO ×3 (05:32→20:57)
[2019-10-25] MEDS: Polyethylene Glycol 3350 17 GM PACKET PO (05:32)
[2019-10-25] MEDS: Pantoprazole Sodium 40 MG Tablet PO ×2 (05:33→17:19)
[2019-10-25] MEDS: Midodrine HCl 5 MG Tablet 2.5 MG PO ×2 (05:33→17:20)
--- NOTE | 2019-10-25 06:45 | MDS.RN ---
Information for the mds was obtained from review of the clinical record, interview of resident, staff, and direct observation of resident's care.
[2019-10-25] MEDS: Vitamin E 400 UNITS Capsule PO (09:09)
[2019-10-25] MEDS: Tamsulosin HCl 0.4 MG Capsule PO ×2 (09:09→17:20)
[2019-10-25] MEDS: Vitamin B Comp W-C Capsule 1 CAP PO (09:09)
[2019-10-25] MEDS: Ascorbic Acid 500 MG Tablet 1000 MG PO (09:09)
[2019-10-25 10:00] VITALS: PULSE 87; RESP 16; O2SAT 96
[2019-10-25 15:01] VITALS: BP 104/71; PULSE 89; RESP 16; TEMP 36.6; O2SAT 92
[2019-10-25] MEDS: Mirtazapine 15 MG Tablet PO (20:57)
[2019-10-26] MEDS: Midodrine HCl 5 MG Tablet 2.5 MG PO ×2 (05:28→17:15)
[2019-10-26] MEDS: Pantoprazole Sodium 40 MG Tablet PO ×2 (05:28→17:16)
[2019-10-26] MEDS: Gabapentin 300 MG Capsule PO ×3 (05:28→20:18)
[2019-10-26] MEDS: Sucralfate 1 GM Tablet PO ×4 (05:28→20:18)
[2019-10-26] MEDS: Polyethylene Glycol 3350 17 GM PACKET PO (05:28)
[2019-10-26 07:48] VITALS: O2SAT 95
[2019-10-26] MEDS: Vitamin E 400 UNITS Capsule PO (07:53)
[2019-10-26] MEDS: Tamsulosin HCl 0.4 MG Capsule PO ×2 (07:53→16:16)
[2019-10-26] MEDS: Ascorbic Acid 500 MG Tablet 1000 MG PO (07:53)
[2019-10-26] MEDS: Vitamin B Comp W-C Capsule 1 CAP PO (07:53)
[2019-10-26 13:50] VITALS: BP 108/70; PULSE 66; RESP 16; TEMP 36.6; O2SAT 94
[2019-10-26 15:58] VITALS: RESP 18; O2SAT 96
--- NOTE | 2019-10-26 15:58 | NURSING ---
pt oxygen sat 96% on RM AIR, weaned off 1 liter. pt resting in recliner chair. doing well.
[2019-10-26 20:13] VITALS: BP 123/81; PULSE 92; RESP 16; TEMP 36.8; O2SAT 98
[2019-10-26] MEDS: Mirtazapine 15 MG Tablet PO (20:18)
[2019-10-26 20:22] VITALS: PULSE 92; RESP 16; O2SAT 98
[2019-10-27 05:43] LABS: Absolute Lymphocyte Count 0.63 X10^3/uL (0.83-4.51); Absolute Neutrophil Count 5.2 X10^3/uL (2.0-7.7); Basophil# 0.03 X10^3/uL; Basophil% 0.4 % (0-1); Hematocrit 32.9 % (40-54); Hemoglobin 10.3 g/dL (13.0-16.5); Lymphocyte # 0.63 X10^3/ul (4.0); Lymphocyte % 8.8 % (19-41); Mean Corp Hgb Conc 31.3 g/dL (32-36); Mean Corpuscular Hgb 28.7 pg (27.0-32.0); Mean Corpuscular Volume 91.6 fL (80-94); Mean Platelet Vol. 10.8 fl (6.2-12.0); Monocyte# 0.74 X10^3/uL; Monocyte% 10.3 % (0-10); NRBC Flagged by Analyzer 0 % (0-5); Neutrophil # 5.18 X10^3/uL (2.7-7.7); Neutrophil % 72.2 % (47-70); Platelet Count 253 K/mm3 (150-450); RBC Distribution Width CV 13.2 % (11.6-14.6); RBC Distribution Width SD 43.8 fl (35.1-43.9); Red Blood Count 3.59 M/mm3 (4.6-6.2); White Blood Count 7.2 K/mm3 (4.4-11.0)
[2019-10-27] MEDS: Midodrine HCl 5 MG Tablet 2.5 MG PO ×2 (05:58→18:00)
[2019-10-27] MEDS: Gabapentin 300 MG Capsule PO ×3 (05:58→21:02)
[2019-10-27] MEDS: Pantoprazole Sodium 40 MG Tablet PO ×2 (05:58→18:00)
[2019-10-27] MEDS: Sucralfate 1 GM Tablet PO ×4 (05:58→21:02)
[2019-10-27] MEDS: Polyethylene Glycol 3350 17 GM PACKET PO (05:58)
[2019-10-27 06:13] LABS: Anion Gap 7 (5-15); BUN 47 mg/dL (7-18); BUN/Creat Ratio 25.1 RATIO (10-20); Calcium,Total 9.5 mg/dL (8.5-10.1); Chloride 101 mmol/L (98-107); Creatinine, Serum 1.87 mg/dL (0.70-1.30); EST Glomerular Filtration Rate 37 mL/min (>60); Est Glom Filt Rate - Afr Amer 45 mL/min (>60); Estimated Creatinine Clearance 33.35 ml/min; Glucose 93 mg/dL (74-106); Potassium 4.7 mmol/L (3.5-5.1); Sodium Level 137 mmol/L (136-145)
[2019-10-27] MEDS: Tamsulosin HCl 0.4 MG Capsule PO ×2 (07:57→18:00)
[2019-10-27] MEDS: Vitamin E 400 UNITS Capsule PO (07:57)
[2019-10-27] MEDS: Vitamin B Comp W-C Capsule 1 CAP PO (07:57)
[2019-10-27] MEDS: Ascorbic Acid 500 MG Tablet 1000 MG PO (07:57)
--- NOTE | 2019-10-27 09:53 | NS ---
Res wanting to see dietitian d/t not getting the foods that he orders - asked res what he wants and he states he wants potato soup. Noted res refusing consistency alterations recommended by ACTIVITIES COORDINATOR. Thorough education provided re: potassium and sodium restrictions. Res verbalizes understanding and expresses desire to eat whatever he wants as he has no intentions of following diet at home. Res requesting diet change to Regular despite diet education.
[2019-10-27 14:06] VITALS: BP 106/67; PULSE 91; RESP 18; TEMP 36.5; O2SAT 95
[2019-10-27] MEDS: Mirtazapine 15 MG Tablet PO (21:02)
[2019-10-28] MEDS: Gabapentin 300 MG Capsule PO ×3 (05:37→20:25)
[2019-10-28] MEDS: Midodrine HCl 5 MG Tablet 2.5 MG PO ×2 (05:37→17:25)
[2019-10-28] MEDS: Pantoprazole Sodium 40 MG Tablet PO ×2 (05:37→17:26)
[2019-10-28] MEDS: Sucralfate 1 GM Tablet PO ×4 (05:37→20:25)
[2019-10-28] MEDS: oxyCODONE 5 MG Tablet PO (05:41)
[2019-10-28] MEDS: Ascorbic Acid 500 MG Tablet 1000 MG PO (08:26)
[2019-10-28] MEDS: Tamsulosin HCl 0.4 MG Capsule PO ×2 (08:26→17:25)
[2019-10-28] MEDS: Vitamin B Comp W-C Capsule 1 CAP PO (08:26)
[2019-10-28] MEDS: Vitamin E 400 UNITS Capsule PO (08:26)
[2019-10-28 14:15] VITALS: BP 96/72; PULSE 100; RESP 18; TEMP 36.8; O2SAT 94
[2019-10-28 16:25] VITALS: O2SAT 94
[2019-10-28] MEDS: Mirtazapine 15 MG Tablet PO (20:26)
[2019-10-28 20:29] VITALS: PULSE 83; O2SAT 95
[2019-10-29] MEDS: Gabapentin 300 MG Capsule PO ×3 (05:35→21:13)
[2019-10-29] MEDS: Sucralfate 1 GM Tablet PO ×4 (05:35→21:13)
[2019-10-29] MEDS: Pantoprazole Sodium 40 MG Tablet PO ×2 (05:35→17:21)
[2019-10-29] MEDS: Midodrine HCl 5 MG Tablet 2.5 MG PO ×2 (05:36→17:21)
[2019-10-29] MEDS: Vitamin B Comp W-C Capsule 1 CAP PO (07:50)
[2019-10-29] MEDS: Ascorbic Acid 500 MG Tablet 1000 MG PO (07:50)
[2019-10-29] MEDS: Vitamin E 400 UNITS Capsule PO (07:51)
[2019-10-29] MEDS: Tamsulosin HCl 0.4 MG Capsule PO ×2 (07:51→17:21)
[2019-10-29 14:10] VITALS: BP 135/83; PULSE 98; RESP 18; TEMP 36.8; O2SAT 94
[2019-10-29] MEDS: Mirtazapine 15 MG Tablet PO (21:13)
[2019-10-30] MEDS: Gabapentin 300 MG Capsule PO ×3 (06:18→21:23)
[2019-10-30] MEDS: Midodrine HCl 5 MG Tablet 2.5 MG PO ×2 (06:18→16:34)
[2019-10-30] MEDS: Sucralfate 1 GM Tablet PO ×2 (06:19→11:05)
[2019-10-30] MEDS: Pantoprazole Sodium 40 MG Tablet PO ×2 (06:19→16:34)
[2019-10-30] MEDS: Ascorbic Acid 500 MG Tablet 1000 MG PO (08:06)
[2019-10-30] MEDS: Vitamin B Comp W-C Capsule 1 CAP PO (08:06)
[2019-10-30] MEDS: Vitamin E 400 UNITS Capsule PO (08:06)
[2019-10-30] MEDS: Tamsulosin HCl 0.4 MG Capsule PO ×2 (08:06→16:34)
[2019-10-30 08:15] VITALS: O2SAT 94
[2019-10-30 09:01] VITALS: PULSE 103; RESP 18; O2SAT 95
--- NOTE | 2019-10-30 15:05 | CASEMGMT ---
Social Work Met with pt about DC plans, will discuss further with therapy tomorrow 10/31 about setting a date. Pt expressed reservation r/t pain. Educated on HHC or OP therapy, pt agreeable to OP therapy and given information on [facility] transport van. Received information on pain medicine for pt, educated on PRN medication ordered. Reviewed with pt palliative care, pt declined services at the moment. Lesvia Villa, social work dental intern Hansa Morataya, INLAYER SILVER MARKETING SERVICES MANAGER
[2019-10-30 15:10] VITALS: BP 120/78; PULSE 99; RESP 18; TEMP 36.4; O2SAT 92
[2019-10-30] MEDS: Mirtazapine 15 MG Tablet PO (21:23)
[2019-10-31] MEDS: Polyethylene Glycol 3350 17 GM PACKET PO (05:53)
[2019-10-31] MEDS: Pantoprazole Sodium 40 MG Tablet PO ×2 (05:53→16:40)
[2019-10-31] MEDS: Gabapentin 300 MG Capsule PO ×3 (05:53→22:38)
[2019-10-31] MEDS: Midodrine HCl 5 MG Tablet 2.5 MG PO ×2 (05:53→16:40)
[2019-10-31] MEDS: Acetaminophen 500 MG Tablet 1000 MG PO ×2 (07:57→22:37)
[2019-10-31] MEDS: Tamsulosin HCl 0.4 MG Capsule PO ×2 (07:58→16:40)
[2019-10-31] MEDS: Vitamin E 400 UNITS Capsule PO (07:58)
[2019-10-31] MEDS: Ascorbic Acid 500 MG Tablet 1000 MG PO (07:58)
[2019-10-31] MEDS: Vitamin B Comp W-C Capsule 1 CAP PO (07:58)
--- NOTE | 2019-10-31 13:12 | CASEMGMT ---
Social Work met with pt to discuss DC plans. Pt to DC 11/04 home alone. No DME needs, pt requesting OP therapy-[facility], PT. plan DC 11/04 home alone, OP-PT [facility], no DME Lesvia Villa, social work email marketing intern Hansa Kerr, LICENSED PROFESSIONAL COUNSELOR BUSINESS PROGRAMMER
[2019-10-31 14:29] VITALS: BP 131/90; PULSE 94; RESP 18; TEMP 36.3; O2SAT 96
--- NOTE | 2019-10-31 16:03 | CASEMGMT ---
Social Work Reviewed and agreed with social work human resources intern documentation on this date. Hansa Kerr, HEADEND TECHNICIAN MEDICAL BILLING CLERK
--- NOTE | 2019-10-31 20:55 | DCINST_ITS ---
- Discharge Diagnoses Current Active Problems: Current Active and Chronic Problems (Last Reviewed 09/08/17 @ 10:24 by Abhay Casillas) Debility (Acute) Lumbar spinal stenosis (Chronic) Acute kidney injury (Acute) Chronic kidney disease (Chronic) Hypertension (Chronic) Neuropathic pain (Chronic) Pharyngeal cancer (Chronic) You will use the following diet at home:: No restrictions, Regular Your food should be the consistency of: Regular Your liquids should be the consistency of: Regular/Thin Discharge Activity: Return to Normal Activity, May Shower, Use Walker Weight Bearing Status: Weight bearing as tolerated Call your doctor if you observe: Fever of 101 or Higher, Inability to urinate, Inability to have a bowel movement, Shortness of breath, Chest pain, Uncontrolled pain Allergies/Adverse Reactions: Allergies morphine Adverse Reaction (Verified 08/25/18 09:30) Vomiting DUST Allergy (Uncoded 11/14/16 10:43) Other SNEEZING MOLD Allergy (Uncoded 11/14/16 10:43) Other Medications to take at Discharge gabapentin 300 mg capsule 300 mg PO TID cap 09/02/17 Albuterol Inhaler [Ventolin Hfa] 2 puff INHALATION Q4H PRN PRN 10/01/19 Midodrine HCl 2.5 mg PO BID 10/01/19 Ascorbic Acid [Vitamin C] 1,000 mg PO DAILY@0800 10/12/19 Vitamin B Comp W-C [Allbee W/C Caplet, Thera B Comp/C] 1 cap PO DAILYCM 10/12/19 Vitamin E 400 units PO DAILYCM 10/12/19 Acetaminophen [Tylenol] 1,000 mg PO Q6H PRN tab 10/31/19 Mirtazapine [Remeron] 15 mg PO QHS #30 tab 10/31/19 Pantoprazole Sodium [Protonix] 40 mg PO BID #60 tab 10/31/19 Salmeterol [Serevent Diskus] 1 puff INHALATION Q12 #1 inhaler 10/31/19 Tamsulosin HCl [Flomax] 0.4 mg PO BID@0830,1730 #60 cap 10/31/19 The following prescriptions were given: Tamsulosin HCl [Flomax] 0.4 mg PO BID@0830,1730 #60 cap Transmission Status: Pending to [facility]/pharmacy #[id number] Pantoprazole Sodium [Protonix] 40 mg PO BID #60 tab Transmission Status: Pending to [facility]acy #[id number] Mirtazapine [Remeron] 15 mg PO QHS #30 tab Transmission Status: [id number] Salmeterol [Serevent Diskus] 1 puff INHALATION Q12 #1 inhaler Transmission Status: [id number] Primary Care Physician: Anderson Crowley MD [Primary Care Provider] - Please follow up with your Primary Care Physician in: 1 week. Test Results: Test results from this visit will be discussed in further detail at your follow- up appointment, if applicable. Please Follow Up With: Alvin Martell, DO When: In 2 Months Please Follow Up With: Anderson Crowley MD Proposed Discharge Date: 11/04/19
--- NOTE | 2019-10-31 20:56 | DS.PCM_ITS ---
Discharge Date and Diagnosis - Problem List Patient Problems: Active and Suspected Problems (Last Reviewed 09/08/17 @ 10:24 by Abhay Casillas) Debility (Acute) Acute kidney injury (Acute) Date of Admission: 10/12/19 Date of Discharge: 11/04/19 - Primary Discharge Diagnosis Active and Suspected Problems (Last Reviewed 09/08/17 @ 10:24 by Abhay Casillas) Debility (Acute) Acute kidney injury (Acute) - Secondary Discharge Diagnosis Chronic Problems (Last Reviewed 09/08/17 @ 10:24 by Abhay Casillas) Fwfrt-yn-kumwpax renal failure (Chronic) due to hypotension and urine retention. Refuses a thomas. Dysphagia causing pulmonary aspiration with swallowing (Chronic) refuses thickened liquids. Has had esophageal strictures in the past and had dilation. Lumbar spinal stenosis (Chronic) Chronic kidney disease (Chronic) Hypertension (Chronic) Neuropathic pain (Chronic) Pharyngeal cancer (Chronic) Left carotid bruit (Chronic) History of laminectomy (Chronic) 09/28/19. Spine surgery by Dr. García Martell at the [facility] orthopedic [facility] including bilateral posterior hemilaminectomies at L2, L3, L4 and L5: Bilateral partial facetectomies and foraminotomies at L2-L3, L3-L4 and L4-L5: Posterior lateral fusion L4-L5 bilaterally with autogenous local graft and 15 mL influx cortical bone, bone graft substitute: Bilateral segmental fixation L4-L5 utilizing back to basics instrumentation and local graft harvest from decompression used for fusion. 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 History of hypertension (Chronic) BPH (benign prostatic hypertrophy) (Chronic) With urine retention - as much as 536 at times Rhinitis (Chronic) Neuropathy (Chronic) on gabapentin GERD (gastroesophageal reflux disease) (Chronic) History of esophageal cancer (Chronic) Follows with Dr. Hartmann. Treated with radiation in the past and with chemo - 2006. Has also had an esophageal satricture.....dilated in he thinks. Orthostatic hypotension (Chronic) on Midodrin Depression (Chronic) started on Remeron 10/03/2019. Insomnia and appetite have improved but, still depressed....will be a few more weeks before the anti-depressant effect kicks in. Osteoarthritis of left knee (Chronic) S/P TKR Status post total left knee replacement (Chronic) Lightheadedness (Chronic) due to orthostatic hypotension COPD (chronic obstructive pulmonary disease) (Chronic) saw Dr. Sterling once and PFT's that showed severe obstruction with 18% reversal with bronchodilator Hospital Course and Treatment Imaging Results: 10/27/19 10:01 Diet: Regular Diet Type of Dietary Supplement:: ensure enlive - no vanill Is pt able to select menu?: Yes Clinical Impression(s) from Imaging Studies Abdomen/Bladder Ultrasound 10/13/19 08:17 IMPRESSION: Moderate degree of postvoid residual. Electronically Signed: Kb Garduno at 12:53 EST , Service support , Chest X-Ray 10/14/19 19:41 IMPRESSION: Chronic interstitial changes, no superimposed acute pulmonary process Electronically Signed: Orlando Moulton MD at 20:54 EST , Service support , Operations: None, total knee replacement - Left knee-09/22/2016, Dr. Brandon Cazares, - - Lumbar laminectomy and fusion at the [facility] orthopedic [facility] by Dr. García Martell on 09/28/2019 Procedures: None Summary of Care Provided: The patient is a 79 year old Male with below past medical history hospitalized for lumbar spine surgery 09/28/[address] Alvin Martell, admitted to Inpatient rehab 10/02/2019, admitted to TCU with debility, here for rehabilitation, strengthening, prior to discharge home alone. Resident aspirates but refuses modified diet. He had acute kidney injury secondary to urinary retention but refused indwelling thomas catheter and straight cath, Tamsulosin 0.4MG twice daily added. He had GERD, and Pantoprazole 40MG twice daily prescribed, can lower to 40MG daily after discharged. Mirtazapine 15MG at bedtime added to improve his diet. Discharge home alone. Patient Problems: Active and Suspected Problems (Last Reviewed 09/08/17 @ 10:24 by Abhay Casillas) Debility (Acute) Acute kidney injury (Acute) - Physical Exam Vitals/I&O's: Vital Signs Temp Pulse Resp BP Pulse Ox 97.3 F L 94 18 131/90 H 96 10/31/19 14:29 10/31/19 14:29 10/31/19 14:29 10/31/19 14:29 10/31/19 14:29 Oxygen Flow Rate (L/min) 2 Oxygen Delivery Method Room Air Weight: 73.737 kg Body Mass Index (BMI) 21.4 Intake and Output for Last 24 Hours 10/29/19 10/30/19 10/31/19 23:59 23:59 23:59 Intake Total 1200 / 1200 840 / 840 720 / 720 Output Total 225 / 225 Balance 975 / 975 840 / 840 720 / 720 Current Medications Acetaminophen (Tylenol) 1,000 mg PO Q6H PRN PRN Reason: Pain Score 1-5/10 Last Admin: 10/31/19 07:57 Dose: 1,000 mg Documented by: Albuterol Sulfate (Ventolin Hfa (Sp)) 2 puff INHALATION Q4H PRN PRN PRN Reason: SOB &/OR WHEEZING Albuterol Sulfate (Ventolin Aerosols) 2.5 mg INHALATION Q2H PRN PRN PRN Reason: SOB &/OR WHEEZING Ascorbic Acid (Vitamin C) 1,000 mg PO DAILY@0800 [facility] Last Admin: 10/31/19 07:58 Dose: 1,000 mg Documented by: Bisacodyl (Dulcolax) 10 mg PO DAILY PRN PRN PRN Reason: Constipation Gabapentin (Neurontin) 300 mg PO TID [facility] Last Admin: 10/31/19 14:24 Dose: 300 mg Documented by: Midodrine (Proamatine) 2.5 mg PO BID [facility] Last Admin: 10/31/19 16:40 Dose: 2.5 mg Documented by: Mirtazapine (Remeron) 15 mg PO QHS [facility] Last Admin: 10/30/19 21:23 Dose: 15 mg Documented by: Multivitamins (Allbee W/C Caplet, Thera B Comp/C) [facility] Last Admin: 10/31/19 07:58 Dose: 1 capsule Documented by: Ondansetron HCl (Zofran Odt) 4 mg PO Q6H PRN PRN PRN Reason: NAUSEA/VOMITING Oxycodone HCl (Oxyir) 5 mg PO Q6H PRN PRN PRN Reason: Pain Score 6-10/10 Last Admin: 10/28/19 05:41 Dose: 5 mg Documented by: Pantoprazole Sodium (Protonix) 40 mg PO BID [facility] Last Admin: 10/31/19 16:40 Dose: 40 mg Documented by: Polyethylene Glycol (Miralax) 17 gm PO DAILY [facility] Last Admin: 10/31/19 05:53 Dose: 17 gm Documented by: Salmeterol Xinafoate (Serevent Diskus) 1 puff INHALATION Q12 [facility] Last Admin: 10/31/19 16:40 Dose: 1 puff Documented by: Sodium Chloride () 10 - 40 ml IV UD PRN PRN Reason: SALINE FLUSH Last Admin: 10/20/19 10:34 Dose: 10 ml Documented by: Sodium Chloride ([place] Nasal [place]) 2 spray NASAL TID PRN PRN PRN Reason: NASAL DRYNESS Last Admin: 10/22/19 20:07 Dose: 2 syr Documented by: Tamsulosin HCl (Flomax) 0.4 mg PO BID@0830,1730 [facility] Last Admin: 10/31/19 16:40 Dose: 0.4 mg Documented by: Vitamin E (Vitamin E) [facility] Last Admin: 10/31/19 07:58 Dose: 400 units Documented by: Discharge Diet: No Restrictions Discharge Activity: Return to Normal Activity, May Shower, Use Walker Weight Bearing Status: Weight bearing as tolerated Call your doctor if you observe: Fever of 101 or Higher, Inability to urinate, Inability to have a bowel movement, Shortness of breath, Chest pain, Uncontrolled pain Home Medications: Medications to take at Discharge gabapentin 300 mg capsule 300 mg PO TID cap 09/02/17 Albuterol Inhaler [Ventolin Hfa] 2 puff INHALATION Q4H PRN PRN 10/01/19 Midodrine HCl 2.5 mg PO BID 10/01/19 Ascorbic Acid [Vitamin C] 1,000 mg PO DAILY@0800 10/12/19 Vitamin B Comp W-C [Allbee W/C Caplet, Thera B Comp/C] 1 cap PO DAILYCM 10/12/19 Vitamin E 400 units PO DAILYCM 10/12/19 Acetaminophen [Tylenol] 1,000 mg PO Q6H PRN tab 10/31/19 Mirtazapine [Remeron] 15 mg PO QHS #30 tab 10/31/19 Pantoprazole Sodium [Protonix] 40 mg PO BID #60 tab 10/31/19 Salmeterol [Serevent Diskus] 1 puff INHALATION Q12 #1 inhaler 10/31/19 Tamsulosin HCl [Flomax] 0.4 mg PO BID@0830,1730 #60 cap 10/31/19 Following Prescrptions Were Given to Patient: Tamsulosin HCl [Flomax] 0.4 mg PO BID@0830,1730 #60 cap Transmission Status[id number] Pantoprazole Sodium [Protonix] 40 mg PO BID #60 tab Transmission Status: [id number] Mirtazapine [Remeron] 15 mg PO QHS #30 tab Transmission Status: [id number] Salmeterol [Serevent Diskus] 1 puff INHALATION Q12 #1 inhaler Transmission Status: [id number] Primary Care Physician: Anderson Crowley MD [Primary Care Provider] - Please follow up with your Primary Care Physician in: 1 week. Please Follow Up With: Alvin Martell, DO When: In 2 Months Please Follow Up With: Adnerson Crowley MD Disposition: Home Minutes spent on discharge:: 35 Patient Condition:: Stable Medical Necessity - Tobacco Use Smoking Status: Former smoker Tobacco Use: Non-smoker Meaningful Use Info Meaningful Use Diagnoses (Choose all that apply): None applicable
[2019-10-31] MEDS: Mirtazapine 15 MG Tablet PO (22:38)
[2019-11-01] MEDS: Pantoprazole Sodium 40 MG Tablet PO ×2 (05:05→17:04)
[2019-11-01] MEDS: Midodrine HCl 5 MG Tablet 2.5 MG PO ×2 (05:05→17:04)
[2019-11-01] MEDS: Gabapentin 300 MG Capsule PO ×3 (05:05→20:48)
[2019-11-01] MEDS: Acetaminophen 500 MG Tablet 1000 MG PO ×2 (05:05→20:52)
[2019-11-01] MEDS: Polyethylene Glycol 3350 17 GM PACKET PO (05:06)
[2019-11-01] MEDS: Tamsulosin HCl 0.4 MG Capsule PO ×2 (07:58→17:04)
[2019-11-01] MEDS: Vitamin E 400 UNITS Capsule PO (07:58)
[2019-11-01] MEDS: Vitamin B Comp W-C Capsule 1 CAP PO (07:58)
[2019-11-01] MEDS: Ascorbic Acid 500 MG Tablet 1000 MG PO (07:58)
[2019-11-01 15:02] VITALS: BP 98/61; PULSE 104; RESP 20; TEMP 36.6; O2SAT 93
[2019-11-01] MEDS: Mirtazapine 15 MG Tablet PO (20:47)
[2019-11-02] MEDS: Gabapentin 300 MG Capsule PO ×3 (05:50→21:17)
[2019-11-02] MEDS: Pantoprazole Sodium 40 MG Tablet PO ×2 (05:51→17:40)
[2019-11-02] MEDS: Midodrine HCl 5 MG Tablet 2.5 MG PO ×2 (05:51→17:40)
[2019-11-02] MEDS: oxyCODONE 5 MG Tablet PO (05:54)
[2019-11-02] MEDS: Vitamin B Comp W-C Capsule 1 CAP PO (07:47)
[2019-11-02] MEDS: Vitamin E 400 UNITS Capsule PO (07:47)
[2019-11-02] MEDS: Ascorbic Acid 500 MG Tablet 1000 MG PO (07:47)
[2019-11-02] MEDS: Tamsulosin HCl 0.4 MG Capsule PO ×2 (07:47→17:40)
--- NOTE | 2019-11-02 09:55 | MDS.RN ---
Pain interview for rey 11/04/19 completed.
[2019-11-02 14:21] VITALS: BP 100/72; PULSE 91; RESP 18; TEMP 36.6; O2SAT 95
[2019-11-02] MEDS: Acetaminophen 500 MG Tablet 1000 MG PO (21:16)
[2019-11-02] MEDS: Mirtazapine 15 MG Tablet PO (21:17)
[2019-11-03] MEDS: Polyethylene Glycol 3350 17 GM PACKET PO (05:52)
[2019-11-03] MEDS: Pantoprazole Sodium 40 MG Tablet PO ×2 (05:52→17:44)
[2019-11-03] MEDS: Gabapentin 300 MG Capsule PO ×3 (05:52→22:04)
[2019-11-03] MEDS: Midodrine HCl 5 MG Tablet 2.5 MG PO ×2 (05:52→17:43)
[2019-11-03] MEDS: Vitamin E 400 UNITS Capsule PO (08:47)
[2019-11-03] MEDS: Vitamin B Comp W-C Capsule 1 CAP PO (08:48)
[2019-11-03] MEDS: Tamsulosin HCl 0.4 MG Capsule PO ×2 (08:48→17:43)
[2019-11-03] MEDS: Ascorbic Acid 500 MG Tablet 1000 MG PO (08:48)
--- NOTE | 2019-11-03 10:21 | CASEMGMT ---
Social Work BIMs and PHQ-9 completed for MDS assessment. Lesvia Villa, social work internship Hansa Kerr, FARM MECHANIC PICKER PACKER
[2019-11-03 16:00] VITALS: BP 117/73; PULSE 85; RESP 20; TEMP 36.9; O2SAT 92
[2019-11-03] MEDS: Mirtazapine 15 MG Tablet PO (22:04)
[2019-11-03] MEDS: Acetaminophen 500 MG Tablet 1000 MG PO (22:06)
[2019-11-04] MEDS: Midodrine HCl 5 MG Tablet 2.5 MG PO (06:52)
[2019-11-04] MEDS: Pantoprazole Sodium 40 MG Tablet PO (06:52)
[2019-11-04] MEDS: Gabapentin 300 MG Capsule PO (06:53)
[2019-11-04 08:10] VITALS: O2SAT 95
[2019-11-04] MEDS: Vitamin B Comp W-C Capsule 1 CAP PO (08:49)
[2019-11-04] MEDS: Ascorbic Acid 500 MG Tablet 1000 MG PO (08:49)
[2019-11-04] MEDS: Tamsulosin HCl 0.4 MG Capsule PO (08:49)
[2019-11-04] MEDS: Vitamin E 400 UNITS Capsule PO (08:49)
[2019-11-04 08:51] VITALS: BP 99/67; PULSE 90; RESP 18; TEMP 36.6; O2SAT 95
--- NOTE | 2019-11-06 15:52 | CASEMGMT ---
Social Work Reviewed and agreed with social work mechanical engineering intern documentation on this date. Hansa Kerr, ACADEMIC AFFAIRS MANAGER HISTOLOGY ASSISTANT
== END 2019-11-04 10:20 | disposition home or self-care (01) | DRG 560 ==
LOC: TCU 15:26
PROVIDERS: Admitting Provider Family Medicine Geriatric Medicine; PCP Family Medicine; Visit Provider Family Medicine Geriatric Medicine
DX: Z47.89 Encounter for other orthopedic aftercare (principal); I42.1 Obstructive hypertrophic cardiomyopathy; N17.9 Acute kidney failure, unspecified; J44.9 Chronic obstructive pulmonary disease, unspecified; E56.0 Deficiency of vitamin E; E53.9 Vitamin B deficiency, unspecified; K21.9 Gastro-esophageal reflux disease without esophagitis; N40.1 Benign prostatic hyperplasia with lower urinary tract symptoms; R33.8 Other retention of urine; I12.9 Hypertensive chronic kidney disease with stage 1 through stage 4 chronic kidney disease, or unspecified chronic kidney disease; N18.9 Chronic kidney disease, unspecified; I95.1 Orthostatic hypotension; G62.9 Polyneuropathy, unspecified; F32.9 Major depressive disorder, single episode, unspecified; R13.10 Dysphagia, unspecified; Z87.891 Personal history of nicotine dependence
CPT/HCPCS: 36415; 51798; 71046; 80048; 85025; 87633; 94640; 97110; 97116; 97162; 97165; 97530; 97535; 97802; J7030; J7050; A4216

== ENCOUNTER 2020-02-22 10:00 | Outpatient (RCR) | payer MEDICARE, OTHER, SELFPAY ==
--- NOTE | 2019-11-06 10:53 | HP.PTEVAL_ITS ---
Patient's Visit Information MADDI JAMESON is a 79 year old M referred to Physical Therapy by Mike Anthony MD with a diagnosis of Back Surgery 09/28/19. Date of Evaluation: 11/06/19 Physical Therapist: Ying Castro DPT - Visit Plan Frequency: 2x /Week Duration: 4 Weeks Plan: Back surgery 09/28- focus on LE and core strength/stabilization- neutral spine with slow progression to ROM-GENTLE!- BALANCE- will have a balance assessment and balance goals established at that time. *remove brace for exercise* - Subjective Findings: Pt is status post Spine surgery 09/28/[address] García Martell at the [facility] [place] including bilateral posterior hemilaminectomies at L2, L3, L4 and L5: Bilateral partial facetectomies and foraminotomies at L2- L3, L3-L4 and L4-L5: Posterior lateral fusion L4-L5 bilaterally with autogenous local graft and 15 mL influx cortical bone, bone graft substitute: Bilateral segmental fixation L4-L5 utilizing back to basics instrumentation and local graft harvest from decompression used for fusion. Stayed rehab and then transfered to [facility]- went home Satu the and now here he is. Was not using a cane when he left but he feels that he is safer with the cane. Lives alone- has 13 stairs- does go up/down- laundry in basement- bedroom on 2nd floor- bathroom on both floors. Sitting he is a4/10 and that is as low as the pain goes. Worst: 7/10 Agg: activities such as bending. Is not allowed to bend, lift and twist. Pain is located in the back and the hips- the pain intermittently travels down both legs right>left. Describes the pain as dull and achy. Does have N/T in his feet from neuropathy chemo 10 years ago. Has not fallen lately- but did have some prior to surgery- balance related. Thinks he needs to work on his balance. Take more effort and longer to perform ADL's- hard to get his socks on. No change in bowel or bladder. Goes back to see December 11. They were happy with progress in September- had x-rays and everything was where it was supposed to be. Sleep: no problems sleeping- side sleeper- no pillow between the knees. Goals: wants to get back to everything- likes to be outside and cuts firewood in the wintertime. PMHx/Meds:no changes since left hospital. Goes back to PCP November 29 Dr Crowley. - Objective Posture: Fh, RS- can correct with tactile cues but does not maintain. Mild posterior tilted pelvis. Observation: incision healing well no s/s of infection- does wear back brace. Gait: slightly antalgic- uses straight cane- slow rhonda and decreased stride length bilaterally- guarded. Stairs: asc/desc 8 recip with 2 HR. HR/TR: able with UE A. SLS: 2 sec then LOB each side. Balance: unable to tandem stance greater than 2 seconds- can obtain position with UE A. Eyes closed narrow ANGEL increased sway and required righting from PT and // bars. Able to perform for 30 sec with moderate sway with wide ANGEL. ROM: Lumbar: flexion: decreased by 75%, Extn: neutral, sb: decreased by 50% Rot: decreased by 50% bilaterally, Hip/Knee/ Ankle: WNL. Strength: Core: fair minus, Hip: 4-/5 throughout, Ankle/Knee: 5/5 - Goals Goal 1:: Patient will be I with HEP and progression Goal Time Frame: 4-6 Weeks Goal 2:: Patient will ambualte <300 feet with LRD and no deviation Goal Time Frame: 4-6 Weeks Goal 3:: Patient will asc/desc 8 stairs with 1 HR and no AD Goal Time Frame: 4-6 Weeks Goal 4:: Patient will maintain proper posture t/o to demo increased core s/s Goal Time Frame: 4-6 Weeks Goal 5:: Patient will report no more than 4/10 pain for 3 consecutive days Goal Time Frame: 4-6 Weeks - Rehabilitation Potential Physical Therapy Diagnosis: Patient presents s/p lumbar surgery 09/28/2019- he heas decreased ROM, strength, flex and muscular endurance leading to poor balance and decreased ability to perform ADL's Rehabilitation Potential: Good - Anticipated Interventions Patient/Client Instruction: Educate patient on: Benefits of Fitness Program Therapeutic Exercise to Include: Strength training, Endurance training, Balance training, Body mechanics, Postural training, Flexibilty training, Gait and locomotor training, Dynamic Lumbar Stabilization For the Purpose of:: To improve muscle performance and motor function Cryotherapy (ice pack, ice massage): Yes Thermo therapy (hot pack): Yes Ultrasound (thermal/non thermal): No Thank you for the opportunity to evaluate your patient. For Medicare and Medicare HMO plans, please review the plan of care and approve it. It will need to be FAXED BACK to us at [phone] for Medicare purposes. For Medicare only, by signing this I certify the plan of care. Please let me know if there are questions or concerns regarding this plan of care. Physician Signature: Date:
--- NOTE | 2019-11-13 12:26 | HP.PTCOM_ITS ---
PT Communication Note 11/13/[address] Mike Anthony MD , Thank you for the referral of Alxe to [facility] for balance assessment. I have enclosed a copy of the results for your review. In summation, he scored low on the Motor control Test and on the visual portion of the Sensory Organization Test. With these results in mind, I plan to add visual based balance ex to his plan of care. I have also reviewed with him balance safety regarding his neuropathy. Please do not hesitate to call if you have questions. Sincerely, FRANKI MastT, OCS, CSCS Contact Information
--- NOTE | 2019-12-04 10:02 | HP.PTREVAL ---
Mike Anthony MD, It has been my pleasure to treat MADDI JAMESON over the last 11 visits for Back Surgery 09/27/19. Please see the progress note below for an update on the physical therapy plan of care! Subjective: Present symptoms: LOW BACK PAIN LEFT > RIGHT AND INTO LEFT HIP. 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 Pain Scale: WORST 7/10, LEAST 3/10. Worse: WEIGHT BEARING ON LLE, BENDING, TWISTING, DRYING FEET AFTER SHOWER. Better: SITTING IN A SOFT CHAIR. Disturbed sleep: NO. Gait/Balance: TO BE BLUNT IT'S POOR ALTHOUGH IT IS BETTER THAN IT WAS. I CAN'T WALK VERY FAR. I AIN'T WOBBLING MUCH I WAS'. PATIENT REPORTS THAT WHEN HE FIRST STARTED THERAPY HE WAS USING A CANE. OTHER: PATIENT REPORTS A LOT OF INCREASED PAIN WEDNESDAY AND WEDNESDAY FOR NO APPARENT REASON. FOLLOW UP PENDING WITH DR. EMANUEL LU 12/12/19. PATIENT REPORTS ABOUT 40% IMPROVEMENT IN TERMS OF STRENGTH, BALANCE AND PAIN. PATIENT REPORTS INCREASED PAIN WHEN HE GETS OUT OF HERE FOR A FEW HOURS BUT THEN IT GOES BACK TO WHERE IT WAS. Objective/Function: PATIENT WAS SEEN TODAY FOR RE-ASSESSMENT OF PROGRESS TOWARD THE SET PT GOALS AND THE NEED FOR FURTHER PHYSICAL THERAPY VS READINESS FOR DISCHARGE. Patient is making slow progress toward all set PT goals and is a good candidate to try aquatic therapy due to high pain levels after land sessions. UPON EXAM TODAY: Sitting/Standing Posture: POOR. INCREASED TRUNK FLEXION, FH AND RS'S. VERY SLOUCHED WITHOUT APPARENT AWARENESS DURING SUBJECTIVE PORTION OF ASSESSMENT TODAY. Lordosis: REDUCED. Active Correction of posture: NE. Other Observations: INDEP GAIT INTO PT WITHOUT AD AND SLOW CADANCE. SWAYS IN STANDING. NO LOB. Motor deficit: DINESH LE STRENGTH 5/5 WITH MMT'ING EXCEPT HIPS 4/5. ROM deficit: TIGHT DINESH HIP FLEXORS, GASTROC SOLEUS COMPLEX'S AND HS'S. Dural Signs: NEGATIVE DINESH LE'S. Lumbar mvmt loss: flex - NIL. ext - PRISCILA. R SG - PRISCILA. L SG - PRISCILA. PATIENT DENIES INCREASED LBP WITH LUMBAR ROM TESTING ALL PLANES TODAY. Core strength: POOR. Palpation: INCISION LOOKS REALLY GOOD WITHOUT ANY SIGNS OF INFECTION. Plan Plan: Aquatic Therapy. Back surgery 09/27/19 - focus on LE and core strength/stabilization- neutral spine with slow progression to ROM-GENTLE!- Please incorporate balance activities. Patient is agreeable. Goals Goal 1:: Patient will be I with HEP and progression Goal Time Frame: 4-6 Weeks Goal Progress: Progressing Goal 2:: Patient will ambualte <300 feet with LRD and no deviation Goal Time Frame: 4-6 Weeks Goal Progress: Progressing Goal 3:: Patient will asc/desc 8 stairs with 1 HR and no AD Goal Time Frame: 4-6 Weeks Goal Progress: Progressing Goal 4:: Patient will maintain proper posture t/o to demo increased core s/s Goal Time Frame: 4-6 Weeks Goal Progress: Progressing Goal 5:: Patient will report no more than 4/10 pain for 3 consecutive days Goal Time Frame: 4-6 Weeks Goal Progress: Progressing Anticipated Interventions Patient/Client Instruction: Educate patient on: Benefits of Fitness Program Therapeutic Exercise to Include: Strength training, Endurance training, Balance training, Body mechanics, Postural training, Flexibilty training, Gait and locomotor training, Dynamic Lumbar Stabilization For the Purpose of:: To improve muscle performance and motor function Cryotherapy (ice pack, ice massage): Yes Thermo therapy (hot pack): Yes Ultrasound (thermal/non thermal): No Please do not hesitate to contact me at [phone] by phone or if you have questions or concerns regarding this new plan of care! Sincerely, Cesia Aleman, PT, Cert MDT
--- NOTE | 2019-12-28 10:13 | HP.PTREVAL_ITS ---
Mike Anthony MD, It has been my pleasure to treat MADDI JAMESON over the last 21 visits for Back Surgery 09/27/19. Please see the progress note below for an update on the physical therapy plan of care! Subjective: PATIENT REPORTS THE WATER SEEMS TO FEEL BETTER. STATES THAT WHEN HE TRIES TO DO ANYTHING AT HOME OR ON LAND IN HERE IT HURTS MORE. BUT IN THE WATER HE REPORTS MOST DAYS HE FEELS BETTER WHEN HE LEAVES THAN WHEN HE CAME. Present symptoms: LOW BACK PAIN LEFT > RIGHT AND ONLY INTERMITTENT PAIN INTO LEFT HIP NOW. 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 Pain Scale: WORST 7/10, LEAST 3/10. Worse: WEIGHT BEARING ON LLE, BENDING, TWISTING, DRYING FEET AFTER SHOWER - BUT GETTING BETTER. Better: SITTING IN A SOFT CHAIR. Disturbed sleep: NO. Gait/Balance: PATIENT REPORTS HIS BALANCE SEEMS TO BE A LITTLE BETTER BUT STILL A PROBLEM. NO LONGER USING CANE AND NO RECENT FALLS. OTHER: PATIENT REPORTS HIS ORTHO FOLLOW UP IS GOING TO BE RE- SCHEDULED FOR A DATE TO BE DETERMINED BUT HE DID SPEAK TO THE NURSE AND SHE TOLD HIM TO CONTINUE PT. PATIENT REPORTS THE NURSE TOLD HIM HE CAN TRY TO START MOWING AND IT USUALLY TAKES 3 HOURS BUT HE STARTED TRYING ABOUT A HALF HOUR AND DID OK. PATIENT REPORTS A HISTORY OF CHRONIC RIGHT ANKLE PAIN. STATES HE HAS A BRACE AND DECIDED TO START WEARING IT AGAIN TO HELP THE PAIN. PATIENT STATES (REFERRING TO WATER VS LAND EX) I THINK ITS DONE ME A WHOLE WORLD OF DIFFERENCE THAN THIS OTHER OUT HERE. WOULD LIKE TO CONTINUE WATER THERAPY IF HE CAN. Objective/Function: PATIENT WAS SEEN TODAY FOR RE-ASSESSMENT OF PROGRESS TOWARD THE SET PT GOALS AND THE NEED FOR FURTHER PHYSICAL THERAPY VS READINESS FOR DISCHARGE. Patient is continuing to make slow progress toward all set PT goals and is responding better to aquatic therapy than land therapy. UPON EXAM TODAY: Sitting/Standing Posture: POOR. INCREASED TRUNK FLEXION, FH AND RS'S. STILL SLOUCHED WITH BETTER AWARENESS DURING SUBJECTIVE PORTION OF ASSESSMENT TODAY BUT ADMITS TO NOT WORKING ON IT MUCH HE SHOULD - I'VE BEEN SLOUCH ALL MY LIFE. YOU CAN'T TEACH AN OLD DOG NEW TRICKS. STATES HE IS USING A CUSHION IN HIS LOW BACK AT HOME NOW. PATIENT REPORTS THE PILLOW IN HIS LOW BACK MAKES SITTING MORE BEARABLE. Lordosis: REDUCED. Active Correction of posture: NE. Other Observations: INDEP GAIT INTO PT WITHOUT AD AND SLOW CADANCE. SWAYS IN STANDING. NO LOB. Motor deficit: DINESH LE STRENGTH 5/5 WITH MMT'ING EXCEPT HIPS L:4+/5, R:5/5. ROM deficit: TIGHT DINESH HIP FLEXORS, GASTROC SOLEUS COMPLEX'S AND HS'S. Dural Signs: NEGATIVE DINESH LE'S. Lumbar mvmt loss: flex - NIL. ext - PRISCILA. R SG - PRISCILA. L SG - PRISCILA. PATIENT DENIES INCREASED LBP WITH LUMBAR ROM TESTING ALL PLANES TODAY. Core strength: POOR Plan Plan: *MODIFY RIGHT LE SLS EX'S TO AVOID RIGHT ANKLE PAIN*. Aquatic Therapy. Back surgery 09/27/19 - focus on LE and core strength/stabilization- neutral spine with slow progression to ROM-GENTLE!- Please incorporate balance activities. Patient is agreeable. Goals Goal 1:: Patient will be I with HEP and progression Goal Time Frame: 4-6 Weeks Goal Progress: Progressing Goal 2:: Patient will ambualte <300 feet with LRD and no deviation Goal Time Frame: 4-6 Weeks Goal Progress: Progressing Goal 3:: Patient will asc/desc 8 stairs with 1 HR and no AD Goal Time Frame: 4-6 Weeks Goal Progress: Progressing Goal 4:: Patient will maintain proper posture t/o to demo increased core s/s Goal Time Frame: 4-6 Weeks Goal Progress: Progressing Goal 5:: Patient will report no more than 4/10 pain for 3 consecutive days Goal Time Frame: 4-6 Weeks Goal Progress: Progressing Anticipated Interventions Patient/Client Instruction: Educate patient on: Benefits of Fitness Program Therapeutic Exercise to Include: Strength training, Endurance training, Balance training, Body mechanics, Postural training, Flexibilty training, Gait and locomotor training, Dynamic Lumbar Stabilization For the Purpose of:: To improve muscle performance and motor function Cryotherapy (ice pack, ice massage): Yes Thermo therapy (hot pack): Yes Ultrasound (thermal/non thermal): No Please do not hesitate to contact me at [phone] by phone or if you have questions or concerns regarding this new plan of care! Sincerely, Cesia Aleman, PT, Cert MDT
--- NOTE | 2020-01-19 10:35 | HP.PTREVAL_ITS ---
Mike Anthony MD, It has been my pleasure to treat MADDI JAMESON over the last 31 visits for Back Surgery 09/27/19. Please see the progress note below for an update on the physical therapy plan of care! Subjective: PATIENT REPORTS THE WATER THERAPY IS CONTINUEING TO HELP HIM. STILL HAS SOME PAIN WITH HOME EX'S AND LESS PAIN IN THE WATER. STATES HE IS STILL H AVING QUITE A BIT OF PAIN IN HIPS IN STANDING. BOTH HIPS HURT ABOUT THE SAME. STILL HAVING RIGHT ANKLE PAIN. PATIENT DENIES INCREASED RIGHT ANKLE PAIN WITH AQUATIC THERAPY. PATIENT REPORTS THAT AFTER THINKING MORE ABOUT IT HE IS MORE LIKE 70% BETTER. HE REPORTS THE POOL IS DEFINATELY STILL HELPING HIM. Objective/Function: PATIENT WAS SEEN TODAY FOR RE-ASSESSMENT OF PROGRESS TOWARD THE SET PT GOALS AND THE NEED FOR FURTHER PHYSICAL THERAPY VS READINESS FOR DISCHARGE. Patient is continuing to make slow progress toward all set PT goals and is responding better to aquatic therapy than land therapy. UPON EXAM TODAY: Sitting/Standing Posture: POOR. INCREASED TRUNK FLEXION, FH AND RS'S. STATES HE IS USING A CUSHION IN HIS LOW BACK AT HOME. Lordosis: REDUCED. Active Correction of posture: NE. Other Observations: INDEP GAIT INTO PT WITHOUT AD AND SLOW CADANCE. LITTLE TO NO SWAYING IN STANDING TODAY. NO LOB. Motor deficit: DINESH LE STRENGTH 5/5 WITH MMT'ING EXCEPT HIPS L:4+/5, R:5/5. ROM deficit: TIGHT DINESH HIP FLEXORS, GASTROC SOLEUS COMPLEX'S AND HS'S. Dural Signs: NEGATIVE DINESH LE'S. Lumbar mvmt loss: flex - NIL. ext - PRISCILA. R SG - PRISCILA. L SG - PRISCILA. PATIENT DENIES INCREASED LBP WITH LUMBAR ROM TESTING ALL PLANES. Core strength: POOR. Discussing options after formal PT concludes to keep up with current strength. Reports he would not have access to a pool and therefore, I pool program is not a reasonable option for him despite encouragement of appropriateness d/t pain levels. Still needing cues for upright positioning d/t tendancy to be in a FWD flexed posture with frequent FWD LOB - able to correct, however, difficulty maintaining. PATIENT IS A GOOD CANDIDATE TO CONTINUE AQUATIC THERAPY AT THIS TIME BASED ON PROGRESS MADE AND ROOM FOR FURTHER IMPROVEMENT AND WOULD RECOMMEND DECREASING TO 2 TIMES A WEEK NOW THAT PATIENT IS ABLE TO TOLERATED MORE OF THE HOME EX'S BETTER AND NOW THAT HE IS BECOMING MORE ACTIVE IN GENERAL AT HOME. GYMS ARE STILL NOT OPEN DUE TO THE VIRUS SO HE IS UNABLE TO TRY TO [facility]. Plan Plan: CONTINUE AQUATIC THERAPY 2X'S A WEEK X 5 WEEKS PROGRESSING TOLERATED. PATEINT IS AGREEABLE. CONTINUE TO MODIFY RIGHT LE SLS EX'S TO AVOID RIGHT ANKLE PAIN. Aquatic Therapy. Back surgery 09/27/19 - focus on LE and core strength/stabilization- neutral spine with slow progression to ROM-GENTLE!- Please incorporate balance activities. Patient is agreeable. Goals Goal 1:: Patient will be I with HEP and progression Goal Time Frame: 4-6 Weeks Goal Progress: Progressing Goal 2:: Patient will ambualte <300 feet with LRD and no deviation Goal Time Frame: 4-6 Weeks Goal Progress: Progressing Goal 3:: Patient will asc/desc 8 stairs with 1 HR and no AD Goal Time Frame: 4-6 Weeks Goal Progress: Progressing Goal 4:: Patient will maintain proper posture t/o to demo increased core s/s Goal Time Frame: 4-6 Weeks Goal Progress: Progressing Goal 5:: Patient will report no more than 4/10 pain for 3 consecutive days Goal Time Frame: 4-6 Weeks Goal Progress: Progressing Anticipated Interventions Patient/Client Instruction: Educate patient on: Benefits of Fitness Program Therapeutic Exercise to Include: Strength training, Endurance training, Balance training, Body mechanics, Postural training, Flexibilty training, Gait and locomotor training, Dynamic Lumbar Stabilization For the Purpose of:: To improve muscle performance and motor function Cryotherapy (ice pack, ice massage): Yes Thermo therapy (hot pack): Yes Ultrasound (thermal/non thermal): No Please do not hesitate to contact me at [phone] by phone or if you have questions or concerns regarding this new plan of care! Sincerely, Cesia Aleman, PT, Cert MDT
--- NOTE | 2020-02-22 10:31 | HP.PTDCSUM_ITS ---
It has been my pleasure to treat MADDI JAMESON referred by Dr. Mike Anthony MD, with the diagnosis of Back Surgery 09/27/19 for a total of 41 visit(s). Discharge Date: 02/22/20 Please see the following information for a summary of their discharge status. Subjective: PATIENT REPORTS THE LAST COUPLE WEEKS WE HAVE COME TO A STAND STILL AND NOTHING IS HELPING. HE REPORTS THAT AT TIMES HE FEELS WORSE THAN BEFORE SURGERY. STATES THAT AT TIMES HE CAN'T EVEN STAND LONG ENOUGH TO DO DISHES BECAUSE OF THE PAIN. PATIENT REPORTS INCREASED PAIN FOR NO APPARENT REASON AND HE HAS A FOLLOW UP SABRINA'T WITH HIS SURGEON NEXT WEEK. PATIENT REPORTS HE IS PROBABLY HAVING MORE PAIN FROM DOING TO MUCH BENDING AND LIFTING AND BOUNCING AROUND ON THE MOWER. ALSO PLANTED A GARDEN AND WEED EATING. STATES HE HAS BEEN DOING A LOT OF BENDING EVEN THOUGH HE KNOWS HE ISN'T SUPPOSED TO. STATES HE IS JUST TRYING TO DO ALL THE THINGS HE NORMALLY DOES. NO LONGER GETTING PAIN RELIEF WHEN HE GETS IN THE POOL. PATIENT REPORTS HE IS OK WITH BEING DISCHARGED FROM PT AND WILL RESUME EX AT [facility] WHEN GIVEN THE OK FROM THE DOCTOR AND ABLE. back Pain Intensity (Out of 10): 6 bilat hips Pain Intensity (Out of 10): 6 RIGHT ANKLE Pain Intensity (Out of 10): 8 % Improvement: 60 Objective/Function: PATIENT WAS SEEN TODAY FOR RE-ASSESSMENT OF PROGRESS TOWARD THE SET PT GOALS AND THE NEED FOR FURTHER PHYSICAL THERAPY VS READINESS FOR DISCHARE. PATIENT IS NO LONGER MAKING PROGRESS WITH PT AND HAS NOT EVEN BEEN ABLE TO GET TEMPORARY RELIEF WITH AQUATIC THERAPY THE LAST FEW SESSIONS. UPON EXAM TODAY: Sitting/Standing Posture: POOR. INCREASED TRUNK FLEXION, FH AND RS'S. STATES HE IS USING A CUSHION IN HIS LOW BACK AT HOME AND IT SEEMS TO HELP. Lordosis: REDUCED. Active Correction of posture: NE - NOT ABLE TO FULLY CORRECT. Other Observations: INDEP GAIT INTO PT WITHOUT AD AND SLOW CADANCE. EXCESSIVE INCREASED TRUNK FLEXION. LITTLE TO NO SWAYING IN STANDING TODAY. NO LOB. Motor deficit: DINESH LE STRENGTH 5/5 WITH MMT'ING EXCEPT HE STILL HAS SOME MILD WEAHNESS OF THE RIGHT HIP COMPARED TO THE LEFT. (RIGHT ANKLE NT INTO INVERSION AND EVERSION). ROM deficit: TIGHT DINESH HIP FLEXORS, GASTROC SOLEUS COMPLEX'S AND HS'S. Dural Signs: NEGATIVE DINESH LE'S. Lumbar mvmt loss: flex - NIL. ext - PRISCILA. R SG - PRISCILA. L SG - PRISCILA. PATIENT DENIES INCREASED LBP WITH LUMBAR ROM TESTING ALL PLANES TODAY. Core strength: POOR. OTHER: THIS PT REINFORCEDED AVOIDNACE OF BENDING, LIFTING AND TWSTING MUCH POSSIBLE UNTIL PHYSICIAN FOLLOW UP. INSTRUCTED PATIENT TO GO TO EMERGENCY ROOM IF NEEDED. Goal 1:: Patient will be I with HEP and progression Goal Progress: Goal Met Goal 2:: Patient will ambualte <300 feet with LRD and no deviation Goal Progress: Not Progressing Goal 3:: Patient will asc/desc 8 stairs with 1 HR and no AD Goal Progress: Goal Met Goal 4:: Patient will maintain proper posture t/o to demo increased core s/s Goal Progress: Not Progressing Goal 5:: Patient will report no more than 4/10 pain for 3 consecutive days Goal Progress: Not Progressing Plan: D/C DUE TO LACK OF CONTINUED IMPROVEMENT AND RECENT WORSENING. FOLLOW UP PENDING WITH SURGEON NEXT WEEK. If there are questions or concerns regarding this patient's physical therapy, please feel free to call me at [phone]. Thank you for the referral of this patient. Sincerely, Cesia Aleman, PT, Cert MDT
== END 2020-02-22 19:00 | disposition home or self-care (01) ==
LOC: PT 10:00
PROVIDERS: PCP Family Medicine; Referring Provider Family Medicine Geriatric Medicine; Visit Provider Family Medicine Geriatric Medicine
DX: M96.1 Postlaminectomy syndrome, not elsewhere classified (principal)
CPT/HCPCS: 97110; 97113; 97162; 97164; 97530; 97750

== ENCOUNTER → 2020-03-20 10:32 | Outpatient (CLI) | payer MEDICARE, OTHER, SELFPAY ==
[2020-03-20 11:20] LABS: Creatinine, Serum 1.61 mg/dL (0.70-1.30); EST Glomerular Filtration Rate 44 mL/min (>60); Est Glom Filt Rate - Afr Amer 54 mL/min (>60)
== END ==
PROVIDERS: PCP Family Medicine; Referring Provider Nurse Practitioner; Visit Provider Nurse Practitioner
DX: M48.062 Spinal stenosis, lumbar region with neurogenic claudication (principal)
CPT/HCPCS: 36415; 82565

== ENCOUNTER → 2020-03-27 12:58 | Outpatient (CLI) | payer MEDICARE, OTHER, SELFPAY ==
--- NOTE | 2020-03-27 13:06 | MRI_ITS ---
STUDY: MRI LUMBAR SPINE WITHOUT CONTRAST REASON FOR EXAM: Male, 79 years old. Worsening back pain since surgery 09/2019. TECHNIQUE: Standardized fat and water weighted pulse sequences were obtained in the sagittal and axial planes. COMPARISON: MRI lumbar spine without contrast 07/06/2019. FINDINGS: T12-L1: (Sagittal only). Normal endplates. Normal disc height, hydration and morphology. No ventral extradural defect. Normal central canal and bilateral intervertebral neural foramina. Normal lumbar lordosis. There is no substantial scoliosis. Normal conus medullaris that terminates at the upper L1 vertebral body level. L1-2: Normal endplates. Normal disc height, hydration and morphology. Normal bilateral facet joints. Normal central canal and bilateral lateral recesses. Normal bilateral intervertebral neural foramina. Large bilateral renal cysts are visible at this level. L2-3: Minimal anterior marginal spurs. Normal endplates. Moderate disc space height narrowing. Small posterior annular bulging disc is unchanged. Normal central canal and bilateral lateral recesses. Mild bilateral degenerative facet arthropathy. Normal bilateral intervertebral neural foramina. L3-4: Schmorl''s node in the posterior L3 inferior endplate is unchanged. Normal L4 superior endplate. Prominent posterior annular bulging disc. Mild central canal stenosis with an AP canal diameter of 10 mm. Normal bilateral lateral recesses. Mild bilateral degenerative facet arthropathy. Postsurgical absence of the L4 lamina. Mild stenosis of the left intervertebral neural foramen. Normal right intervertebral neural foramen. L4-5: Pedicular screws and rods causing signal distortion artifacts. Schmorl''s node in the L4 inferior endplate is unchanged. More pronounced disc space height narrowing. Normal L5 superior endplate. Capacious thecal sac and normal bilateral lateral recesses. Postsurgical absence of the spinous processes and lamina. Mild stenosis of the right intervertebral neural foramen with osteophytic encroachment is unchanged. Normal left intervertebral neural foramen. L5-S1: Normal endplates. Mild left-sided disc space height narrowing. Normal central canal and bilateral lateral recesses. Mild to moderate left degenerative facet arthropathy. Mild right degenerative facet arthropathy. Normal bilateral intervertebral neural foramina. 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 This is unchanged. Normal sacral ala and SI joints. Normal visualized paraspinous soft tissue structures. MRI/Spine Lumbar (Routine) IMPRESSION: 1. Mild central canal stenosis at L3-L4 disc level with an AP canal diameter of 10 mm and prominent posterior annular bulging disc. This is unchanged. 2. 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 This is unchanged. 3. Capacious thecal sac at L4-L5 disc level following posterior decompression and fusion using pedicular screws and rods. 4. No MRI evidence of lumbar extruded disc fragment or nerve root displacement. 5. No other additional findings or changes when compared to 07/06/2019. Electronically Signed: Hector Mcknight MD at 14:12 EDT , Service support ,
== END ==
PROVIDERS: PCP Family Medicine; Referring Provider Nurse Practitioner; Visit Provider Nurse Practitioner
DX: M48.062 Spinal stenosis, lumbar region with neurogenic claudication (principal)
CPT/HCPCS: 72148

== ENCOUNTER 2021-12-15 11:51 | Day surgery (SDC) | payer MEDICARE, OTHER, SELFPAY ==
[2021-12-15] VITALS (8 sets, daily range): BP systolic 146–180; BP diastolic 76–95; PULSE 62–81; RESP 14–18; TEMP 36.1–36.4; O2SAT 92–100; BMI 20.5
[2021-12-15] MEDS: Lactated Ringers 1,000 ML 15 ML IV ×2 (12:26→14:30)
[2021-12-15] MEDS: Cefazolin 2 GM in 0.9% Normal Saline 100 ML IV (13:04)
--- NOTE | 2021-12-15 13:08 | RAD_ITS ---
EXAM: XR LUMBOSACRAL SPINE, 2 OR 3 VIEWS CLINICAL INDICATION: INSERTION SPINAL CORD STIMULATOR TECHNIQUE: Frontal and lateral views of the lumbar spine and sacrum. This report was created using [employer] report generation technology. COMPARISON: None. FINDINGS: See Impression. RAD/Lumbar Spine 2 or 3 Views IMPRESSION: 1. Intraoperative images submitted for spinal cord stimulator placement. 2. See full procedure report. Electronically Signed: Titus Champagne MD at 21:18 EDT ,
[2021-12-15] MEDS: Lidocaine 2% (20 ml mdv) 20 ML Vial (13:15)
[2021-12-15] MEDS: Bupivacaine 0.25% 30 ML Vial (13:15)
[2021-12-15] MEDS: Bacitracin 500 UNITS/GM PACKET (14:59)
--- NOTE | 2021-12-15 17:07 | OP.PCM_ITS ---
Report of Operation Date of Procedure: 12/15/21 Description of Surgical Findings:: Pre-Operative Diagnosis: Lumbosacral radiculopathy, lumbosacral degenerative disc disease, lumbosacral spinal stenosis, lumbar postlaminectomy syndrome Post-Operative Diagnosis: Lumbosacral radiculopathy, lumbosacral degenerative d isc disease, lumbosacral spinal stenosis, postlaminectomy syndrome of the lumbar spine Surgery/Procedure Performed:: 1. Spinal cord stimulator thoracolumbar leads placement x2 #2 spinal cord stimulator Medtronic intellus generator placement #3 spinal cord stimulator generator pocket creation at the right gluteal region #4 spinal cord stimulator programming, 5-intraoperative fluoroscopic interpretation ANESTHESIA: MAC COMPLICATIONS: None BLOOD LOSS: Minimal Implanted device: Spinal cord stimulator lead [id number] lot number [id number], lead #2 [id number] lot number [id number] Medtronic spinal cord stimulator generator intellus serial number [id number] PROCEDURE IN DETAIL: History and physical today was reviewed. Risks and benefits of procedure explained. The patient understood, agreed to procedure, informed consent was obtained. IV inserted per routine protocol. The patient was taken to the operating room, placed in the prone position with a pillow positioned underneath the abdomen. A 2 g of Ancef IV piggyback was infused per anesthesia. The lower back and right gluteal area was prepped and draped in a sterile fashion using iodine x3 Ioban was placed. The C-arm was brought in position for AP view at the L1-2 vertebral bodies under direct visualization fluoroscopy on a true AP view the L1-2 interlaminar space was identified skin and subcutaneous tissue and size approximately 10 cc of a mix of 2% lidocaine and 0.25% Marcaine using a 25-gauge regular needle followed by a 25-gauge 3-1/2 inch spinal needle towards the interlaminar space at T12-L1, the skin and subcutaneous tissue were then anesthetized and using an 11-gauge blade was then taken down to the skin and subcutaneous tissue using a 14-gauge 3-1/2 inch Touhy needle provided by the [employer] kit the needle was passed through the skin towards the interlaminar space at L1-2 and a left paramedian approach the needle was then advanced under direct visualization fluoroscopy towards the interlaminar space at L2-3 [id number] technique was then carried to air towards the interlaminar space at L1-2 once the tip of the needle was in the epidural space and loss of resistance was encountered to air and after confirmation of AP-- as well as oblique view of the spinal cord stimulator lead was then advanced under direct visualization fluoroscopy to be at the tip of the lead at T8 and the bottom of the lead around mid T10 after confirmation of AP as well as well as lateral view to confirm correct placement of the lead in the posterior compartment of the epidural space the previous procedure was then rep eated to the same level on the right parapmedian approach, interlaminar space the second lead was then inserted under direct visualization with fluoroscopy to be at the tip of T8 and mid T10 area the leads were were then connected to the external neurostimulator and patient was then awakened to confirm satisfactory coverage of the painful area once satisfactory coverage was then achieved the stylette of each needle was then removed and the skin and subcutaneous tissue on to the left of the paramedian needles was then taken anesthetized with a total of 10 cc of the previous mixture of 0.25% Marcaine and 2% lidocaine using a 25- gauge regular needle the incision was then taken down through the skin and subcutaneous tissue towards the fascia making sure hemostasis was then maintained via cautery, the spinal cord stimulator leads were then passed through the above incision and secured using the anhor and sutured down with a 2-0 silk to the fascia at that level the spinal cord stimulator leads were then tunneled via a tunneler provided by the [employer] kit towards the previously incised spinal cord stimulator battery at the right gluteal region skin and subcutaneous tissue were anesthetized with approximately 10 cc of a mix of 2% lidocaine and 0.25% Marcaine using a 25 gauge regular needle, skin and subcutaneous tissue was then taken down with the 11-gauge blade hemostasis was maintained with Bovie and direct pressure the incision was then taken down to the fascia and the battery was then secured with the 2-0 silk sutures that were the spinal cord stimulator leads the upper lead was then marked the new until spinal cord stimulator battery was then provided Via [employer] kit the battery was then reattached of the spinal cord stimulator make ensure that the top lead is attached to the top position from 0-7 electrodes and the bottom from 8-15 electrodes once impedance was then checked to be in the proper average number the intellus battery was then inserted into the pocket and impedance with when checked again the pocket was then inspected to confirm hemostasis in place, the intellus battery was then secured to the fascia using a 2-0 silk to the upper eyes of the battery confirming an upward writing of the intellus facing posterior, inserted into a antimicrobial TYRX POUCH once complete confirmation the battery was then placed in the position and the the mid paramedian and the gluteal incisions were then closed primarily through a 3-0 Vicryl in a running fashion followed by a 4-0 Vicryl to the skin, hemostasis was then maintained during the procedure the skin was then covered with a Steri-Strips and bacitracin patient was then returned into the supine position in a stable condition and returned to recovery in a stable condition patient experienced no signs or symptoms of intrathecal or intravascular injection patient experienced no paresthesia the procedure was completed without any apparent difficulty any complication the patient appeared to tolerate well, motor as well as sensory function was unchanged from prior to the procedure ESTIMATED BLOOD LOSS: Minimal less than 25 mL ASSESSMENT AND PLAN: This is a 81-year-old male with lumbosacral radiculopathy lumbosacral degenerative disc disease lumbosacral spinal stenosis status post 1. Spinal cord stimulator thoracolumbar leads placement x2 #2 spinal cord stimulator Medtronic intellus generator placement #3 spinal cord stimulator generator pocket creation at the right gluteal region #4 spinal cord stimulator programming, 5-intraoperative fluoroscopic interpretation patient will continue his current medications a prescription was provided to the patient Keflex 500 mg 1 p.o. every 8 hours for 7 days, Percocet 5-325 mg 1 p.o. every 6 hours as needed acute postoperative pain, postop instruction were given in writing to the patient verbally and in writing, patient will follow approximately 1 week for reevaluation.
== END 2021-12-15 23:59 | disposition home or self-care (01) ==
LOC: SDC 11:52 → AC 12:05
PROVIDERS: PCP Family Medicine; Referring Provider Anesthesiology Pain Medicine; Visit Provider Anesthesiology Pain Medicine
PROC: (CPT 63685; principal; 2021-12-15 13:15)
DX: M51.17 Intervertebral disc disorders with radiculopathy, lumbosacral region (principal); M96.1 Postlaminectomy syndrome, not elsewhere classified; M48.07 Spinal stenosis, lumbosacral region; K21.9 Gastro-esophageal reflux disease without esophagitis; I10 Essential (primary) hypertension; Z86.73 Personal history of transient ischemic attack (TIA), and cerebral infarction without residual deficits; Z79.82 Long term (current) use of aspirin; Z79.899 Other long term (current) drug therapy; Z87.891 Personal history of nicotine dependence
CPT/HCPCS: 63685; 63650 ×2; 01992; 72100; 76000; C1778; J7120; J2405

== ENCOUNTER → 2022-01-09 | Outpatient (CLI) | payer MEDICARE, OTHER, SELFPAY ==
--- NOTE | 2022-01-09 09:58 | RAD_ITS ---
STUDY: X-RAY - LUMBAR SPINE REASON FOR EXAM: Male, 81 years old. Back pain EVAL SCS LEAD PLACEMENT TECHNIQUE: XR Spine Lumbar 2 or 3 Views COMPARISON: None FINDINGS: Normal lumbar lordosis. There is no substantial scoliosis. There is a normal alignment of the vertebrae. There is multilevel endplate spondylosis of the lumbar vertebrae. There is multi-level degenerative disc disease with multi-level disc space narrowing. There are atherosclerotic vascular calcifications. Punctate calculi visualized overlying the left kidney. Spinal fixation hardware visualized. There is a right side sided subcutaneous implanted electronic device with leads extending into the spinal canal. This is likely an SCS (spinal cord stimulator). The tip of the lead is slightly beyond the T7-8 level. RAD/Lumbar Spine 2 or 3 Views IMPRESSION: Degenerative changes of the spine, as detailed above. Electronically Signed: Felix Hamlin MD at 17:30 EDT ,
--- NOTE | 2022-01-09 09:58 | RAD_ITS ---
STUDY: X-RAY - THORACIC SPINE REASON FOR EXAM: Male, 81 years old. EVAL SCS LEAD PLACEMENT TECHNIQUE: XR Spine Thoracic 2 Views COMPARISON: None FINDINGS: Normal kyphosis of the thoracic spine. There is no substantial scoliosis. There is multilevel endplate spondylosis of the thoracic vertebrae. Normal disc space heights. There is a right side sided subcutaneous implanted electronic device with leads extending into the spinal canal. This is likely an SCS (spinal cord stimulator). The tip of the lead is slightly beyond the T7-8 level. RAD/Thoracic Spine 2 Views IMPRESSION: There are degenerative changes as noted above. Electronically Signed: Felix Hamlin MD at 17:31 EDT ,
== END | disposition home or self-care (01) ==
LOC: RAD 09:55
PROVIDERS: PCP Family Medicine; Referring Provider Nurse Practitioner Family; Visit Provider Nurse Practitioner Family
DX: M51.34 Other intervertebral disc degeneration, thoracic region (principal); M51.36 Other intervertebral disc degeneration, lumbar region
CPT/HCPCS: 72070; 72100

== ENCOUNTER 2022-02-23 05:05 | Emergency (ER) | payer MEDICARE, OTHER, SELFPAY ==
[2022-02-23 05:06] VITALS: BP 156/91; PULSE 73; RESP 18; TEMP 36.5; O2SAT 95; BMI 21.4
--- NOTE | 2022-02-23 05:20 | CT_ITS ---
STUDY: CT ABDOMEN AND PELVIS WITHOUT CONTRAST REASON FOR EXAM: Male, 81 years old. flank pain RADIATION DOSAGE (If Supplied By Facility): CTDIvol = ( 8.79 ) mGy, DLP = ( 399.76 ) mGycm TECHNIQUE: Transaxial images were obtained from the dome of the diaphragm to the symphysis pubis without oral contrast, and without intravenous contrast. Sagittal and coronal images were reconstructed. Individualized dose optimization techniques were used for this CT. COMPARISON: Ultrasound kidney 10/10/2019. FINDINGS: LOWER CHEST: Mild bronchial wall thickening in the right lower lobe. Right middle lobe 3 mm pulmonary nodule at the lung bases. Coronary artery calcifications. LIVER: Normal. GALLBLADDER/BILE DUCTS: Calcified cholelithiasis.. PANCREAS: Normal. SPLEEN: Normal. ADRENAL GLANDS: Normal. KIDNEYS/URETERS/BLADDER: Bilateral pelviectasis. 3 mm calculus in the distal left ureter. 5 mm calculus dependent in the urinary bladder. Additional nonobstructive bilateral nephrolithiasis. Bilateral renal cystic changes measuring up to 10 cm. RETROPERITONEUM/AORTA: Infrarenal abdominal aortic aneurysm measuring 4.8 cm. Moderate atherosclerotic calcifications. BOWEL/MESENTERY: Normal. APPENDIX: Identified and normal. PERITONEUM: Normal. REPRODUCTIVE ORGANS: Normal. BONES/SOFT TISSUES: Status post L4-5 posterior spine fusion hardware. Multilevel degenerative changes in the visualized spine. Large sacral Tarlov cyst. Right gluteal intrathecal 2electrodes extending beyond the [id number]. OTHER: None. CT/Abdomen/Pelvis without Cont IMPRESSION: 1. Bilateral pelviectasis. 2. 3 mm calculus in the distal left ureter. 3. 5 mm calculus in the urinary bladder, may represent recently passed calculus versus bladder calculus. 4. Additional nonobstructive bilateral nephrolithiasis. 5. Infrarenal abdominal aortic aneurysm measuring 4.8 cm. 6. Mild bronchial wall thickening in the right lower lobe, suggestive of small airways disease. 7. Bilateral renal cystic changes, incompletely evaluated. 8. Right middle lobe 3 mm pulmonary nodule. *Fleischner Society Recommendations (Radiology 2005;237:395-400.) (Follow-up and management of nodules smaller than 8 mm detected incidentally at non-screening CT. Newly detected indeterminate nodule in persons 35 years of age or older.) Low risk patient: Minimal or absent history of smoking and of other known risk factors. <= 4mm: No followup needed >4-6mm: Follow-up CT at 12 months, if unchanged - no further followup >6-8mm: Initial Follow-up CT at 6-12 months, then at 18-24 months if no change >8mm: Follow-up CT at 3, 9, and 24 months; FDG PET scan; and or biopsy High risk patient: History of smoking or of other known risk factors. <= 4mm: Follow-up CT at 12 months, if unchanged - no further followup >4-6mm: Initial Follow-up CT at 6-12 months, then at 18-24 months if no change >6-8mm: Initial Follow-up CT at 3-6 months, then at 9-12 and 24 months if no change >8mm: Follow-up CT at 3, 9, and 24 months; FDG PET scan; and or biopsy Note: Non-solid (ground-glass) or partly solid nodules may require longer follow-up to Electronically Signed: Amadou Blanca MD at 6:43 EDT ,
--- NOTE | 2022-02-23 05:21 | EDS_ITS ---
HPI History of Present Illness Chief Complaint: Abd Pain Informant: patient Narrative Narrative: Patient presents with left flank pain. He states he woke him up at about 4:00 this morning. He was fine prior to that. He had some nausea but no vomiting. No diarrhea. No fevers or chills. He has no nausea now. The pain is better but still present. It has not moved. It was not tearing or ripping. He did not feel lightheaded or syncopal. He states he has had kidney stones and this did hemorrhage remind him of that. He does not know or think he has had diverticulitis. He did have a spinal nerve stimulator placed about 6 weeks ago in his back but has not had any issues. This does not feel like back pain to him. This is over on the lateral left flank. Nothing really made it better or worse. PFSH PFS Medical History Arthritis Back pain Cancer Cardiology follow-up encounter Chest pain Chronic cough Former smoker Gastric reflux History of echocardiogram History of pain when walking History of steroid therapy History of stress test Hoarseness Hypertension Injury of head and neck Loss of consciousness Shortness of breath on exertion TIA (transient ischemic attack) Wears dentures Wears glasses Home Medications gabapentin 300 mg capsule 300 mg PO TID cap 09/02/17 [History Last Taken 12/15/21 07:15] albuterol sulfate 2 puff INHALATION Q4H PRN PRN 10/01/19 [History Last Taken Unknown] midodrine 2.5 mg PO BID 10/01/19 [History Last Taken 12/15/21 07:15] B-complex with vitamin C 1 cap PO DAILYCM 10/12/19 [History Last Taken Unknown] ascorbic acid (vitamin C) 1,000 mg PO DAILY@0800 10/12/19 [History Last Taken Unknown] vitamin E (dl, acetate) 400 units PO DAILYCM 10/12/19 [History Last Taken Unknown] acetaminophen 1,000 mg PO Q6H PRN tab 10/31/19 [Rx Last Taken Unknown] mirtazapine 15 mg PO QHS #30 tab 10/31/19 [Rx Last Taken Unknown] pantoprazole 40 mg PO BID #60 tab 10/31/19 [Rx Last Taken 12/15/21 07:15] tamsulosin 0.4 mg PO BID@5859,1781 #60 cap 10/31/19 [Rx Last Taken Unknown] aspirin 325 mg PO DAILY 12/08/21 [History Last Taken Unknown] atorvastatin 40 mg PO QHS 12/08/21 [History Last Taken Unknown] lisinopril 10 mg PO DAILY 12/08/21 [History Last Taken 12/15/21 07:15] ondansetron 4 mg PO Q8H PRN #10 tab 02/23/22 [Rx Last Taken Unknown] oxycodone-acetaminophen [Percocet] 1 tab PO Q6H PRN 5 Days #15 tab 02/23/22 [Rx Last Taken Unknown] Allergy/AdvReac Type Severity Reaction Status Date / Time morphine AdvReac Vomiting Verified 02/23/22 05:09 DUST Allergy Other Uncoded 02/23/22 05:09 MOLD Allergy Other Uncoded 02/23/22 05:09 Surgical History H/O hernia repair History of back surgery History of cardiac catheterization History of tonsillectomy Hx of colonoscopy S/P total knee arthroplasty Social History Smoking Status: Former smoker how long ago did patient quit smokin ROS ROS ED Constitutional Constitutional ED: Denies chills or fever(s) ENT ENT ED: Denies rhinorrhea Cardiovascular Cardiovascular: Denies chest pain or palpitations Respiratory/Chest Respiratory/Chest: Denies cough or dyspnea Gastrointestinal Gastrointestinal: Reports abdominal pain and nausea; Denies diarrhea or vomiting Genitourinary Genitourinary ED: Denies dysuria, hematuria or urinary frequency Musculoskeletal Musculoskeletal: Denies back pain Integumentary Denies rash Neurologic Neurologic: Denies headache(s) Psychiatric Psychiatric: Denies anxiety or depression Endocrine Endocrinology: Denies polydipsia or polyuria Allergic/Immunologic Allergic/Immunologic ED: Denies urticaria EXAM Physical Exam Const Vital Signs: 02/23/22 05:06 Temperature 97.7 F L Temperature Source Oral Pulse Rate 73 Respiratory Rate 18 Blood Pressure 156/91 H Blood Pressure Mean 112 Pulse Ox 95 Oxygen Delivery Method Room Air Positive well nourished and well developed General Appearance ED: well developed and NAD; Negative for cyanotic or diaphoretic HEENT Reports moist mucous membranes Eyes General Eye ED: Negative for pale conjunctiva or scleral icterus Neck no JVD Chest Wall inspection of chest normal Resp clear to auscultation bilaterally Cardio regular rate GI normal to inspection, nondistended, normoactive bowel sounds, non-tender and non-distended Palpation: soft Back/Spine no CVA tenderness Extremity normal to inspection General Extremety ED: Negative for tenderness Neuro Sensorium / Orientation: alert Psych mental status grossly normal Skin no rashes or lesions noted MDM MDM MDM Narrative Medical decision making narrative: Patient's CBC showed mild anemia but no elevated white count. Platelets are normal. Electrolytes show mild elevation of creatinine of 1.62 but this is at his baseline. CT scan showed 3 mm calculus in the left distal ureter and a 5 mm already in the bladder. There is also an infrarenal aneurysm at 4.8 cm. Patient is having no pain at all now. He now states that he is aware of the aneurysm he was told they were just watching it. But he does not know what size it was in the past. There is also a small right- sided 3 mm pulmonary nodule. I explained this to the patient that this will also need follow-up. Urinalysis is pending. His urine actually looks relatively clear/pale yellow. It is not cloudy. As long as there is no sign of infection I think we can get him home. He is already on tamsulosin. I will write for meds for pain and nausea. If the urine shows infection we will add antibiotics. Lab Data Attestation: I reviewed the patient's lab results. Labs: Laboratory Results - last 24 hr 02/23/22 02/23/22 05:20 05:20 WBC 6.4 RBC 3.51 L Hgb 10.2 L Hct 32.5 L MCV 92.6 MCH 29.1 MCHC 31.4 L RDW Std Deviation 45.5 H RDW Coeff of [place] 13.6 Plt Count 262 MPV 10.9 Immature Gran % (Auto) 0.500 Neut % (Auto) 62.4 Lymph % (Auto) 16.0 L [place] % (Auto) 8.9 Eos % (Auto) 11.3 H Baso % (Auto) 0.9 Absolute Neuts (auto) 4.0 Absolute Lymphs (auto) 1.02 Nucleated RBC % 0 Sodium 142 Potassium 4.3 Chloride 112 H Carbon Dioxide 26.0 Anion Gap 4 L BUN 21 H Creatinine 1.62 H Estim Creat Clear Calc 38.54 Est GFR (MDRD) Af Amer 53 L Est GFR (MDRD) Non-Af 44 L BUN/Creatinine Ratio 13.0 Glucose 90 Calcium 8.7 Radiography Diagnostic Testing: Clinical Impression(s) from Imaging Studies Abdomen/Pelvis CT 02/23/22 05:20 IMPRESSION: 1. Bilateral pelviectasis. 2. 3 mm calculus in the distal left ureter. 3. 5 mm calculus in the urinary bladder, may represent recently passed calculus versus bladder calculus. 4. Additional nonobstructive bilateral nephrolithiasis. 5. Infrarenal abdominal aortic aneurysm measuring 4.8 cm. 6. Mild bronchial wall thickening in the right lower lobe, suggestive of small airways disease. 7. Bilateral renal cystic changes, incompletely evaluated. 8. Right middle lobe 3 mm pulmonary nodule. *Fleischner Society Recommendations (Radiology 2005;237:395-400.) (Follow-up and management of nodules smaller than 8 mm detected incidentally at non-screening CT. Newly detected indeterminate nodule in persons 35 years of age or older.) Low risk patient: Minimal or absent history of smoking and of other known risk factors. <= 4mm: No followup needed >4-6mm: Follow-up CT at 12 months, if unchanged - no further followup >6-8mm: Initial Follow-up CT at 6-12 months, then at 18-24 months if no change >8mm: Follow-up CT at 3, 9, and 24 months; FDG PET scan; and or biopsy High risk patient: History of smoking or of other known risk factors. <= 4mm: Follow-up CT at 12 months, if unchanged - no further followup >4-6mm: Initial Follow-up CT at 6-12 months, then at 18-24 months if no change >6-8mm: Initial Follow-up CT at 3-6 months, then at 9-12 and 24 months if no change >8mm: Follow-up CT at 3, 9, and 24 months; FDG PET scan; and or biopsy Note: Non-solid (ground-glass) or partly solid nodules may require longer follow-up to Electronically Signed: Amadou Blanca MD at 6:43 EDT , Discharge Plan Triage Chief Complaint: Abd Pain ED Provider: Fly Alvarado Dx/Rx/DC Orders Clinical Impression: Kidney stone on left side, AAA (abdominal aortic aneurysm) without rupture Instructions: ED Kidney Stone w/ Colic Prescriptions: New oxycodone-acetaminophen [Percocet] 5-325 mg tablet 1 tab PO Q6H PRN (Reason: pain) 5 Days Qty: 15 RF: 0 ondansetron 4 mg tablet,disintegrating 4 mg PO Q8H PRN (Reason: nausea and vomiting) Qty: 10 RF: 0 No Action gabapentin 300 mg capsule 300 mg PO TID RF: 0 midodrine 2.5 MG tablet 2.5 mg PO BID RF: 0 albuterol sulfate 1 INHALER inhaler 2 puff inhalation Q4H PRN PRN (Reason: Sob &/Or Wheezing) RF: 0 ascorbic acid (vitamin C) 500 MG tablet 1,000 mg PO DAILY@0800 RF: 0 B-complex with vitamin C 1 CAPSULE capsule 1 cap PO DAILYCM RF: 0 vitamin E (dl, acetate) 400 UNITS capsule 400 units PO DAILYCM RF: 0 acetaminophen 500 MG tablet 1,000 mg PO Q6H PRN (Reason: Pain Score 1-5/10) RF: 0 tamsulosin 0.4 MG capsule 0.4 mg PO BID@0830,1730 Qty: 60 RF: 0 pantoprazole 40 MG tablet 40 mg PO BID Qty: 60 RF: 0 mirtazapine 15 MG tablet 15 mg PO QHS Qty: 30 RF: 0 atorvastatin 40 mg Tablet 40 mg PO QHS RF: 0 lisinopril 10 mg Tablet 10 mg PO DAILY RF: 0 aspirin 81 mg Capsule 325 mg PO DAILY RF: 0 Primary Care Provider: Anderson Crowley Referrals: Yanick Diaz MD [STAFF PHYSICIAN] - 3-5 Days Anderson Crowley MD [Primary Care Provider] - Disposition Disposition: Home, Self Care
[2022-02-23] MEDS: oxyCODONE 5 MG Tablet PO (05:30)
[2022-02-23 05:34] LABS: Absolute Lymphocyte Count 1.02 X10^3/uL (0.83-4.51); Basophil# 0.06 X10^3/uL; Basophil% 0.9 % (0-1); Eosinophil# 0.72 X10^3/uL; Eosinophils% 11.3 % (0-5); Hematocrit 32.5 % (40-54); Hemoglobin 10.2 g/dL (13.0-16.5); Lymphocyte # 1.02 X10^3/ul (0.83-4.51); Mean Corp Hgb Conc 31.4 g/dL (32-36); Mean Corpuscular Hgb 29.1 pg (27.0-32.0); Mean Corpuscular Volume 92.6 fL (80-94); Mean Platelet Vol. 10.9 fl (6.2-12.0); Monocyte# 0.57 X10^3/uL; Monocyte% 8.9 % (0-10); NRBC Flagged by Analyzer 0 % (0-5); Neutrophil # 3.99 X10^3/uL (2.7-7.7); Neutrophil % 62.4 % (47-70); Platelet Count 262 K/mm3 (150-450); RBC Distribution Width CV 13.6 % (11.6-14.6); RBC Distribution Width SD 45.5 fl (35.1-43.9); Red Blood Count 3.51 M/mm3 (4.6-6.2); White Blood Count 6.4 K/mm3 (4.4-11.0)
[2022-02-23 05:47] LABS: Anion Gap 4 (5-15); BUN 21 mg/dL (7-18); Calcium,Total 8.7 mg/dL (8.5-10.1); Chloride 112 mmol/L (98-107); Creatinine, Serum 1.62 mg/dL (0.70-1.30); EST Glomerular Filtration Rate 44 mL/min (>60); Est Glom Filt Rate - Afr Amer 53 mL/min (>60); Estimated Creatinine Clearance 38.54 ml/min; Glucose 90 mg/dL (74-106); Potassium 4.3 mmol/L (3.5-5.1); Sodium Level 142 mmol/L (136-145)
[2022-02-23 07:07] LABS: Bacteria 0 SEEN /hpf (None Seen); Mucous, Urine 0 SEEN /hpf (<or=2+); Squamous Epithelial Cells - UA 0 SEEN /hpf (0-5); White Blood Cells 0 SEEN /hpf (0-5)
[2022-02-23 07:27] LABS: Color, Urine Yellow (Yellow); Glucose, Dipstick Normal (Normal); Ketone-Dipstick Negative (Negative); Leukocyte Esterase-Dipstick Negative /ul (Negative); Nitrite-Dipstick Negative (Negative); Occult Blood-Urine 150 /ul (Negative); Protein-Dipstick Negative (Negative); Specific Gravity, Urine 1.015 (1.002-1.030); Urine Bilirubin Dipstick Negative (Negative); Urine Clarity Clear (Clear); Urine Urobilinogen Normal (Normal)
[2022-02-23 07:33] LABS: Red Blood Cells-Urine 10-25 SEEN /hpf (0-5)
[2022-02-23 07:40] VITALS: BP 134/69; PULSE 72; RESP 15; O2SAT 98
== END 2022-02-23 07:41 | disposition home or self-care (01) ==
LOC: ED 06:17
PROVIDERS: Emergency Provider Emergency Medicine; PCP Family Medicine; Visit Provider Emergency Medicine
DX: N20.0 Calculus of kidney (principal); I71.4 Abdominal aortic aneurysm, without rupture; Z87.442 Personal history of urinary calculi; K21.9 Gastro-esophageal reflux disease without esophagitis; I10 Essential (primary) hypertension; Z86.73 Personal history of transient ischemic attack (TIA), and cerebral infarction without residual deficits; M19.90 Unspecified osteoarthritis, unspecified site; Z79.899 Other long term (current) drug therapy; Z79.82 Long term (current) use of aspirin; Z87.891 Personal history of nicotine dependence; D64.9 Anemia, unspecified
CPT/HCPCS: 74176; 80048; 81001; 85025; 99283; J7030; A4216

== ENCOUNTER 2022-04-24 10:34 | Emergency (ER) | payer MEDICARE, OTHER, SELFPAY ==
[2022-04-24] VITALS (7 sets, daily range): BP systolic 134–178; BP diastolic 68–89; PULSE 57–73; RESP 16–19; TEMP 35.8–36.7; O2SAT 92–97; BMI 19.8
--- NOTE | 2022-04-24 10:47 | CT_ITS ---
STUDY: CT ABDOMEN AND PELVIS WITHOUT CONTRAST REASON FOR EXAM: Male, 81 years old. Pain left flank and LLQ RADIATION DOSAGE (If Supplied By Facility): CTDIvol = ( 6.51 ) mGy, DLP = ( 304.25 ) mGycm TECHNIQUE: Transaxial images were obtained from the dome of the diaphragm to the symphysis pubis without oral contrast, and without intravenous contrast. Sagittal and coronal images were reconstructed. Individualized dose optimization techniques were used for this CT. COMPARISON: 02/23/2022 FINDINGS: There is minimal dependent atelectasis within the lower lobes. The visualized portions of the heart are within normal limits. The lack of intravenous contrast limits evaluation of solid visceral organs. Normal liver. There are gallstones within the gallbladder. Normal spleen. Normal pancreas. Normal bilateral adrenal glands. There are bilateral renal cysts. There are bilateral nonobstructing renal calculi measuring up to 4 mm on the right and 10.7 mm on the left. There is a 2.1 mm calculus within the urinary bladder right of midline. There is left-sided hydroureteronephrosis secondary to a 5 mm calculus within the left distal ureter just proximal to the ureteropelvic pelvic junction. Normal visualized stomach. Normal small intestine. Normal colon. The appendix is visualized and appears normal. There is diffuse atherosclerotic calcification of the abdominal aorta. There is a stable infrarenal abdominal aortic aneurysm measuring up to 4.8 cm in diameter. Normal inferior vena cava. Normal retroperitoneum. Normal urinary bladder. Normal abdominal wall. There are stable postsurgical changes of L4-L5. There is a stable sacral Tarlov cyst. There are 2 grossly stable electrodes within the thoracic spine extending cranial to the most superior image. CT/Abdomen/Pelvis without Cont IMPRESSION: Left hydroureteronephrosis secondary to a 5 mm calculus within the distal ureter. 2.1 mm calculus within the urinary bladder right of midline. Bilateral nonobstructing renal calculi measuring up to 2.7 mm on the left. Bilateral renal cysts. Stable 4.8 cm infrarenal abdominal aortic aneurysm. Cholelithiasis. Atherosclerosis. Electronically Signed: Carla Pizarro MD at 12:33 EDT ,
--- NOTE | 2022-04-24 10:49 | EDS_ITS ---
HPI History of Present Illness Chief Complaint: Flank Pain Informant: patient Narrative Narrative: Patient presents with left flank and left lower quadrant pain. This woke him up at about 3:00 this morning. It is sharp. It does wax and wane. It has not been associated with lightheadedness syncope or near syncope. When the pain is been bad he has gotten nauseated but has not actually vomited. He had 1 slightly soft bowel movement but no blood or black material. No change in urination. Patient does have a history of a abdominal aneurysm but its 4.[address] He also has history of kidney stones and had a kidney stone 2 months ago. This pain resolved and he never followed up because his pain had gone away after his visit here. He feels this is a similar pain to what he had back in February. Nothing really makes it better or worse or changes it. He felt fine until this started. [facility] Medical History Arthritis Back pain Cancer Cardiology follow-up encounter Chest pain Chronic cough Former smoker Gastric reflux History of echocardiogram History of pain when walking History of steroid therapy History of stress test Hoarseness Hypertension Injury of head and neck Loss of consciousness Shortness of breath on exertion TIA (transient ischemic attack) Wears dentures Wears glasses Home Medications gabapentin 300 mg capsule 300 mg PO TID pain 09/02/17 [History Last Taken 12/15/21 07:15] albuterol sulfate 90 mcg/actuation aerosol inhaler 2 puff inhalation Q4H PRN PRN Sob &/Or Wheezing 10/01/19 [History Last Taken Unknown] midodrine 2.5 mg tablet 2.5 mg PO BID bp 10/01/19 [History Last Taken 12/15/21 07:15] B-complex with vitamin C 1 cap PO DAILYCM supplement 10/12/19 [History Last Taken Unknown] ascorbic acid (vitamin C) 500 mg tablet 1,000 mg PO DAILY@0800 supplement 10/12/19 [History Last Taken Unknown] vitamin E (dl, acetate) 180 mg (400 unit) capsule 400 units PO DAILYCM supplement 10/12/19 [History Last Taken Unknown] acetaminophen 500 mg tablet 1,000 mg PO Q6H PRN Pain Score 1-5/10 10/31/19 [Rx Last Taken Unknown] mirtazapine 15 mg tablet 15 mg PO QHS sleep/appetite #30 tabs 10/31/19 [Rx Last Taken Unknown] pantoprazole 40 mg tablet,delayed release 40 mg PO BID stomach #60 tabs 10/31/19 [Rx Last Taken 12/15/21 07:15] tamsulosin 0.4 mg capsule 0.4 mg PO BID@0830,1730 prostate #60 caps 10/31/19 [Rx Last Taken Unknown] aspirin 81 mg capsule 325 mg PO DAILY 12/08/21 [History Last Taken Unknown] atorvastatin 40 mg tablet 40 mg PO QHS 12/08/21 [History Last Taken Unknown] lisinopril 10 mg tablet 10 mg PO DAILY 12/08/21 [History Last Taken 12/15/21 07:15] oxycodone-acetaminophen 5 mg-325 mg tablet (Percocet) 1 tab PO Q6H PRN pain 5 days #15 tabs 02/23/22 [Rx Last Taken Unknown] ondansetron 4 mg disintegrating tablet 4 mg PO Q8H PRN nausea and vomiting #10 tabs 04/24/22 [Rx Last Taken Unknown] oxycodone 5 mg tablet 5 mg PO Q6H PRN pain 3 days #10 tabs 04/24/22 [Rx Last Taken Unknown] Allergy/AdvReac Type Severity Reaction Status Date / Time mold Allergy NEEDS Verified 04/24/22 11:10 FOLLOW-UP house dust AdvReac SNEEZING Verified 04/24/22 11:10 morphine AdvReac Vomiting Verified 04/24/22 11:10 poison kayleen extract AdvReac Rash Verified 04/24/22 11:10 Surgical History H/O hernia repair History of back surgery History of cardiac catheterization History of tonsillectomy Hx of colonoscopy S/P total knee arthroplasty Social History Smoking Status: Former smoker how long ago did patient quit smokin ROS ROS ED Constitutional Constitutional ED: Denies fever(s) or sweats Cardiovascular Cardiovascular: Denies chest pain or palpitations Respiratory/Chest Respiratory/Chest: Denies cough or dyspnea Gastrointestinal Gastrointestinal: Reports abdominal pain, diarrhea and nausea; Denies constipation, melena or vomiting Genitourinary Genitourinary ED: Denies dysuria, hematuria or urinary frequency Musculoskeletal Musculoskeletal: Denies myalgias Integumentary Denies Abrasions or rash Neurologic Neurologic: Denies paresthesias or weakness Endocrine Endocrinology: Denies polydipsia or polyuria Hematologic/Lymphatic Hematologic/Lymphatic: Denies easy bleeding Allergic/Immunologic Allergic/Immunologic ED: Denies urticaria EXAM Physical Exam Const Vital Signs: 04/24/22 10:36 04/24/22 11:06 04/24/22 12:39 Temperature 97.5 F L 98.1 F 96.8 F L Temperature Source Oral Oral Temporal Pulse Rate 71 69 73 Respiratory Rate 18 18 16 Blood Pressure 135/86 H 169/78 H 178/89 H Blood Pressure Mean 102 108 118 Pulse Ox 95 94 95 Oxygen Delivery Method Room Air Room Air Room Air 04/24/22 13:28 04/24/22 14:15 04/24/22 15:10 Temperature 96.4 F L Temperature Source Temporal Pulse Rate 70 62 57 L Respiratory Rate 16 16 16 Blood Pressure 134/72 H 145/85 H 159/68 H Blood Pressure Mean 92 105 98 Pulse Ox 94 96 92 Oxygen Delivery Method Room Air Room Air Room Air Positive well nourished and well developed General Appearance ED: well developed and NAD; Negative for cyanotic or diaphoretic HEENT Reports moist mucous membranes Eyes General Eye ED: Negative for scleral icterus Neck supple Chest Wall inspection of chest normal Resp normal respiratory effort and clear to auscultation bilaterally Cardio regular rate and regular rhythm GI normal to inspection, nondistended, normoactive bowel sounds GI Narrative: Patient does have an area in his left lateral/left lower quadrant region that is slightly tender. No CVA tenderness. No mass noted. I do not feel aneurysm or get tenderness in that area. Back/Spine no CVA tenderness Extremity normal to inspection Neuro oriented x3 Skin no rashes or lesions noted MDM MDM MDM Narrative Medical decision making narrative: Blood work showed minimal anemia at 10.2. Platelets white count normal. Electrolytes show baseline renal dysfunction with a creatinine of [address] does show left hydronephrosis with 5 mm calculus in the distal ureter. Patient also has a calculus in the bladder. There are other bilateral nonobstructing calculi. AAA is at baseline. Patient is rechecked. He is having return of pain and some mild nausea. I will give him further meds. He has a urologist that he has seen for kidney stones at [facility] although he does not remember the name. We will have him follow-up. However, first I need to get his pain more under control. Patient's plain completely resolved. He was not better he felt it was completely gone. He was having trouble urinating. However, this is a chronic issue for him. He is already on tamsulosin. We did a bladder scan he had a little over 300 cc. He was straight cathed for urine which is clean. He does not want a catheter. We will get him to follow-up. I explained that even if his symptoms resolve he should follow-up with urology. I will give him the name of our urologist in case he cannot find the name of the doctor he used to see. We discussed reasons to return. Lab Data Attestation: I reviewed the patient's lab results. Labs: Laboratory Results - last 24 hr 04/24/22 04/24/22 04/24/22 10:50 10:50 14:45 WBC 9.8 RBC 3.64 L Hgb 10.2 L Hct 33.8 L MCV 92.9 MCH 28.0 MCHC 30.2 L RDW Std Deviation 47.8 H RDW Coeff of [place] 14.2 Plt Count 275 MPV 10.6 Immature Gran % (Auto) 0.500 Neut % (Auto) 89.1 H Lymph % (Auto) 5.0 L [place] % (Auto) 4.5 Eos % (Auto) 0.5 Baso % (Auto) 0.4 Absolute Neuts (auto) 8.8 H Absolute Lymphs (auto) 0.49 L Nucleated RBC % 0 Differential Comment Platelet Estimate ADEQUATE RBC Morphology NORM C+C Sodium 139 Potassium 4.5 Chloride 111 H Carbon Dioxide 23.0 Anion Gap 5 BUN 17 Creatinine 1.70 H Estim Creat Clear Calc 34.04 Est GFR (MDRD) Af Amer 50 L Est GFR (MDRD) Non-Af 42 L BUN/Creatinine Ratio 10.0 Glucose 124 H Calcium 8.9 Urine Color Straw Urine Clarity Clear Urine pH 6.0 Ur Specific [place] 1.015 Urine Protein 15 H Urine Glucose (UA) Normal Urine Ketones Negative Urine Occult Blood 25 H Urine Nitrite Negative Urine Bilirubin Negative Urine Urobilinogen Normal Ur Leukocyte Esterase Negative Urine RBC 0-5 SEEN Urine WBC 0 SEEN Ur Squamous Epith Cells 0 SEEN Urine Bacteria 0 SEEN Urine Mucus 0 SEEN Radiography Diagnostic Testing: Clinical Impression(s) from Imaging Studies Abdomen/Pelvis CT 04/24/22 10:47 IMPRESSION: Left hydroureteronephrosis secondary to a 5 mm calculus within the distal ureter. 2.1 mm calculus within the urinary bladder right of midline. Bilateral nonobstructing renal calculi measuring up to 2.7 mm on the left. Bilateral renal cysts. Stable 4.8 cm infrarenal abdominal aortic aneurysm. Cholelithiasis. Atherosclerosis. Electronically Signed: Carla Pizarro MD at 12:33 EDT , Discharge Plan Triage Chief Complaint: Flank Pain ED Provider: Fly Alvarado Dx/Rx/DC Orders Clinical Impression: Kidney stone on left side Instructions: ED Kidney Stone w/ Colic Prescriptions: New oxycodone 5 mg tablet 5 mg PO Q6H PRN (Reason: pain) 3 Days Qty: 10 0RF ondansetron 4 mg tablet,disintegrating 4 mg PO Q8H PRN (Reason: nausea and vomiting) Qty: 10 0RF No Action gabapentin 300 mg capsule 300 mg PO TID midodrine 2.5 MG tablet 2.5 mg PO BID albuterol sulfate 1 INHALER inhaler 2 puff inhalation Q4H PRN PRN (Reason: Sob &/Or Wheezing) ascorbic acid (vitamin C) 500 MG tablet 1,000 mg PO DAILY@0800 B-complex with vitamin C 1 CAPSULE capsule 1 cap PO DAILYCM vitamin E (dl, acetate) 400 UNITS capsule 400 units PO DAILYCM acetaminophen 500 MG tablet 1,000 mg PO Q6H PRN (Reason: Pain Score 1-5/10) 0RF tamsulosin 0.4 MG capsule 0.4 mg PO BID@0830,1730 Qty: 60 0RF pantoprazole 40 MG tablet 40 mg PO BID Qty: 60 0RF mirtazapine 15 MG tablet 15 mg PO QHS Qty: 30 0RF atorvastatin 40 mg Tablet 40 mg PO QHS lisinopril 10 mg Tablet 10 mg PO DAILY aspirin 81 mg Capsule 325 mg PO DAILY oxycodone-acetaminophen [Percocet] 5-325 mg tablet 1 tab PO Q6H PRN (Reason: pain) 5 Days Qty: 15 0RF Primary Care Provider: Anderson Crowley Referrals: Yanick Diaz MD [Med Staff - Active Staff] - 3-5 Days Anderson Crowley MD [Primary Care Provider] - Disposition Disposition: Home, Self Care
[2022-04-24 10:59] LABS: Absolute Lymphocyte Count 0.49 X10^3/uL (0.83-4.51); Absolute Neutrophil Count 8.8 X10^3/uL (2.0-7.7); Basophil# 0.04 X10^3/uL; Basophil% 0.4 % (0-1); Eosinophil# 0.05 X10^3/uL; Eosinophils% 0.5 % (0-5); Hematocrit 33.8 % (40-54); Hemoglobin 10.2 g/dL (13.0-16.5); Lymphocyte # 0.49 X10^3/ul (0.83-4.51); Mean Corp Hgb Conc 30.2 g/dL (32-36); Mean Corpuscular Volume 92.9 fL (80-94); Mean Platelet Vol. 10.6 fl (6.2-12.0); Monocyte# 0.44 X10^3/uL; Monocyte% 4.5 % (0-10); NRBC Flagged by Analyzer 0 % (0-5); Neutrophil # 8.75 X10^3/uL (2.7-7.7); Neutrophil % 89.1 % (47-70); POSITIVE DIFFERENTIAL YES; Platelet Count 275 K/mm3 (150-450); RBC Distribution Width CV 14.2 % (11.6-14.6); RBC Distribution Width SD 47.8 fl (35.1-43.9); Red Blood Count 3.64 M/mm3 (4.6-6.2); White Blood Count 9.8 K/mm3 (4.4-11.0)
[2022-04-24] MEDS: fentaNYL 100 MCG/2 ML Ampul 50 MCG IV ×2 (11:13→13:11)
[2022-04-24] MEDS: Ondansetron 4 MG/2 ML Vial IV (11:14)
[2022-04-24 11:15] LABS: Anion Gap 5 (5-15); BUN 17 mg/dL (7-18); Calcium,Total 8.9 mg/dL (8.5-10.1); Chloride 111 mmol/L (98-107); EST Glomerular Filtration Rate 42 mL/min (>60); Est Glom Filt Rate - Afr Amer 50 mL/min (>60); Estimated Creatinine Clearance 34.04 ml/min; Glucose 124 mg/dL (74-106); Potassium 4.5 mmol/L (3.5-5.1); Sodium Level 139 mmol/L (136-145)
[2022-04-24 11:19] LABS: Differential Indicated SCAN CRITERIA MET
[2022-04-24 12:03] LABS: Platelet Estimate ADEQUATE (ADEQ)
[2022-04-24 12:04] LABS: Red Cell Morphology NORM C+C NORMAL (NORM C&C)
[2022-04-24] MEDS: oxyCODONE 5 MG Tablet PO (13:16)
[2022-04-24] MEDS: proMETHazine 25 MG/ML Syringe 12.5 MG IM (13:17)
--- NOTE | 2022-04-24 14:14 | ED.RN ---
PT HAS TRIED MULTIPLE TIMES TO GIVE CLEAN CATCH URINE SAMPLE. PT UNABLE URINATE. BLADDER SCANNED FOR >[address] ZHANG INFORMED.
[2022-04-24 14:54] LABS: Bacteria 0 SEEN /hpf (None Seen); Mucous, Urine 0 SEEN /hpf (<or=2+); Squamous Epithelial Cells - UA 0 SEEN /hpf (0-5); White Blood Cells 0 SEEN /hpf (0-5)
[2022-04-24 15:00] LABS: Color, Urine Straw (Yellow); Glucose, Dipstick Normal (Normal); Ketone-Dipstick Negative (Negative); Leukocyte Esterase-Dipstick Negative /ul (Negative); Nitrite-Dipstick Negative (Negative); Occult Blood-Urine 25 /ul (Negative); Protein-Dipstick 15 mg/dl (Negative); Specific Gravity, Urine 1.015 (1.002-1.030); Urine Bilirubin Dipstick Negative (Negative); Urine Clarity Clear (Clear); Urine Urobilinogen Normal (Normal)
[2022-04-24 15:33] LABS: Red Blood Cells-Urine 0-5 SEEN /hpf (0-5)
== END 2022-04-24 15:48 | disposition home or self-care (01) ==
PROVIDERS: Emergency Provider Emergency Medicine; PCP Family Medicine; Visit Provider Emergency Medicine
DX: N13.2 Hydronephrosis with renal and ureteral calculous obstruction (principal); I71.4 Abdominal aortic aneurysm, without rupture; K21.9 Gastro-esophageal reflux disease without esophagitis; I10 Essential (primary) hypertension; Z86.73 Personal history of transient ischemic attack (TIA), and cerebral infarction without residual deficits; Z79.899 Other long term (current) drug therapy; Z79.82 Long term (current) use of aspirin; Z87.442 Personal history of urinary calculi; D64.9 Anemia, unspecified
CPT/HCPCS: 74176; 80048; 81001; 85025; 96372; 96374; 96375; 96376; 99283; A4216; J2405

== ENCOUNTER 2022-04-26 13:33 | Emergency (ER) | payer MEDICARE, OTHER, SELFPAY ==
[2022-04-26 13:34] VITALS: BP 178/100; PULSE 97; RESP 18; TEMP 36.3; O2SAT 98; BMI 19.9
[2022-04-26 14:50] VITALS: BP 201/100; PULSE 86; RESP 15; O2SAT 97
[2022-04-26] MEDS: Ondansetron 4 MG/2 ML Vial IV (16:09)
[2022-04-26] MEDS: fentaNYL 100 MCG/2 ML Ampul 50 MCG IV ×2 (16:09→18:25)
[2022-04-26 16:17] VITALS: BP 199/94; PULSE 82; RESP 16; O2SAT 96
[2022-04-26 16:17] LABS: Bacteria 0 SEEN /hpf (None Seen); Mucous, Urine 0 SEEN /hpf (<or=2+); Squamous Epithelial Cells - UA 0 SEEN /hpf (0-5); White Blood Cells 0 SEEN /hpf (0-5)
[2022-04-26 16:20] LABS: Color, Urine Straw (Yellow); Glucose, Dipstick Normal (Normal); Ketone-Dipstick Negative (Negative); Leukocyte Esterase-Dipstick Negative /ul (Negative); Nitrite-Dipstick Negative (Negative); Occult Blood-Urine 25 /ul (Negative); Protein-Dipstick 15 mg/dl (Negative); Urine Bilirubin Dipstick Negative (Negative); Urine Clarity Clear (Clear); Urine Urobilinogen Normal (Normal)
[2022-04-26 16:26] LABS: Red Blood Cells-Urine 0-5 SEEN /hpf (0-5)
[2022-04-26 17:07] LABS: Anion Gap 8 (5-15); BUN 21 mg/dL (7-18); BUN/Creat Ratio 9.5 RATIO (10-20); Chloride 105 mmol/L (98-107); EST Glomerular Filtration Rate 31 mL/min (>60); Est Glom Filt Rate - Afr Amer 37 mL/min (>60); Estimated Creatinine Clearance 26.42 ml/min; Glucose 120 mg/dL (74-106); Potassium 4.9 mmol/L (3.5-5.1); Sodium Level 137 mmol/L (136-145)
[2022-04-26 18:31] VITALS: BP 179/86; PULSE 93; RESP 16; O2SAT 97
--- NOTE | 2022-04-26 18:48 | EX.ED.DYSGE1 ---
HPI History of Present Illness Chief Complaint: Flank Pain Informant: patient Onset/Context/Timing Onset: Days Narrative Narrative: Patient was seen in the ER 2 days ago secondary to left flank pain. He was diagnosed with a 5 mm distal ureter stone. He did require straight cath in the emergency room that revealed no evidence of urinary infection. He declined a catheter. He presents back today stating he is not been able to pass any urine since yesterday. He is requesting a catheter. [facility] Medical History Arthritis Back pain Cancer Cardiology follow-up encounter Chest pain Chronic cough Former smoker Gastric reflux History of echocardiogram History of pain when walking History of steroid therapy History of stress test Hoarseness Hypertension Injury of head and neck Loss of consciousness Shortness of breath on exertion TIA (transient ischemic attack) Wears dentures Wears glasses Home Medications gabapentin 300 mg capsule 300 mg PO TID pain 09/02/17 [History Last Taken 12/15/21 07:15] albuterol sulfate 90 mcg/actuation aerosol inhaler 2 puff inhalation Q4H PRN PRN Sob &/Or Wheezing 10/01/19 [History Last Taken Unknown] midodrine 2.5 mg tablet 2.5 mg PO BID bp 10/01/19 [History Last Taken 12/15/21 07:15] B-complex with vitamin C 1 cap PO DAILYCM supplement 10/12/19 [History Last Taken Unknown] ascorbic acid (vitamin C) 500 mg tablet 1,000 mg PO DAILY@0800 supplement 10/12/19 [History Last Taken Unknown] vitamin E (dl, acetate) 180 mg (400 unit) capsule 400 units PO DAILYCM supplement 10/12/19 [History Last Taken Unknown] acetaminophen 500 mg tablet 1,000 mg PO Q6H PRN Pain Score 1-5/10 10/31/19 [Rx Last Taken Unknown] mirtazapine 15 mg tablet 15 mg PO QHS sleep/appetite #30 tabs 10/31/19 [Rx Last Taken Unknown] pantoprazole 40 mg tablet,delayed release 40 mg PO BID stomach #60 tabs 10/31/19 [Rx Last Taken 12/15/21 07:15] tamsulosin 0.4 mg capsule 0.4 mg PO BID@0830,1730 prostate #60 caps 10/31/19 [Rx Last Taken Unknown] aspirin 81 mg capsule 325 mg PO DAILY 12/08/21 [History Last Taken Unknown] atorvastatin 40 mg tablet 40 mg PO QHS 12/08/21 [History Last Taken Unknown] lisinopril 10 mg tablet 10 mg PO DAILY 12/08/21 [History Last Taken 12/15/21 07:15] oxycodone-acetaminophen 5 mg-325 mg tablet (Percocet) 1 tab PO Q6H PRN pain 5 days #15 tabs 02/23/22 [Rx Last Taken Unknown] ondansetron 4 mg disintegrating tablet 4 mg PO Q8H PRN nausea and vomiting #10 tabs 04/24/22 [Rx Last Taken Unknown] oxycodone 5 mg tablet 5 mg PO Q6H PRN pain 3 days #10 tabs 04/24/22 [Rx Last Taken Unknown] Allergy/AdvReac Type Severity Reaction Status Date / Time mold Allergy NEEDS Verified 04/26/22 13:34 FOLLOW-UP house dust AdvReac SNEEZING Verified 04/26/22 13:34 morphine AdvReac Vomiting Verified 04/26/22 13:34 poison kayleen extract AdvReac Rash Verified 04/26/22 13:34 Surgical History H/O hernia repair History of back surgery History of cardiac catheterization History of tonsillectomy Hx of colonoscopy S/P total knee arthroplasty Social History Smoking Status: Former smoker how long ago did patient quit smokin ROS ROS ED Constitutional Constitutional ED: Denies chills or fever(s) Eyes Eyes: Denies change in vision or discharge from eye(s) ENT ENT ED: Denies discharge from eye(s), rhinorrhea or sore throat Cardiovascular Cardiovascular: Denies chest pain or palpitations Respiratory/Chest Respiratory/Chest: Denies cough or dyspnea Gastrointestinal Gastrointestinal: Reports abdominal pain; Denies diarrhea, nausea or vomiting Genitourinary Genitourinary ED: Reports difficulty urinating Musculoskeletal Musculoskeletal: Reports back pain; Denies extremity pain Integumentary Denies Abrasions or rash Neurologic Neurologic: Denies headache(s) or weakness Psychiatric Psychiatric: Denies anxiety or depression Allergic/Immunologic Allergic/Immunologic ED: Denies lip swelling or urticaria EXAM Physical Exam Const Vital Signs: 04/26/22 13:34 04/26/22 14:34 04/26/22 14:50 Temperature 97.3 F L Temperature Source Temporal Pulse Rate 97 86 Respiratory Rate 18 15 Respiratory Effort Normal Respiratory Pattern Normal Blood Pressure 178/100 H 201/100 H Blood Pressure Mean 126 133 Pulse Ox 98 97 Oxygen Delivery Method Room Air Room Air Oxygen Flow Rate (L/min) 04/26/22 16:17 04/26/22 18:31 Temperature Temperature Source Pulse Rate 82 93 Respiratory Rate 16 16 Respiratory Effort Respiratory Pattern Blood Pressure 199/94 H 179/86 H Blood Pressure Mean 129 117 Pulse Ox 96 97 Oxygen Delivery Method Room Air Nasal Cannula Oxygen Flow Rate (L/min) 2 Positive well nourished and well developed General Appearance ED: well developed HEENT Reports normocephalic and head/scalp atraumatic Eyes PERRL and EOMs intact bilaterally Neck supple Chest Wall inspection of chest normal and palpation of chest normal Resp normal respiratory effort and clear to auscultation bilaterally Cardio regular rate and regular rhythm GI GI Narrative: Suprapubic tenderness and fullness. Palpation: soft Extremity normal to inspection Neuro oriented x3 and no sensory deficits noted Sensorium / Orientation: alert Motor Exam: strength 5/5 throughout Psych mental status grossly normal Skin no rashes or lesions noted MDM MDM MDM Narrative Medical decision making narrative: Zapata catheter placed by nursing staff. Over 1 L of urine out. BMP obtained to check renal function and urinalysis ordered. Patient given fentanyl for pain. Lab Data Attestation: I reviewed the patient's lab results. Labs: Laboratory Results - last 24 hr 04/26/22 04/26/22 16:15 16:25 Sodium 137 Potassium 4.9 Chloride 105 Carbon Dioxide 24.0 Anion Gap 8 BUN 21 H Creatinine 2.20 H Estim Creat Clear Calc 26.42 Est GFR (MDRD) Af Amer 37 L Est GFR (MDRD) Non-Af 31 L BUN/Creatinine Ratio 9.5 L Glucose 120 H Calcium 9.0 Urine Color Straw Urine Clarity Clear Urine pH 7.0 Ur Specific [place] 1.010 Urine Protein 15 H Urine Glucose (UA) Normal Urine Ketones Negative Urine Occult Blood 25 H Urine Nitrite Negative Urine Bilirubin Negative Urine Urobilinogen Normal Ur Leukocyte Esterase Negative Urine RBC 0-5 SEEN Urine WBC 0 SEEN Ur Squamous Epith Cells 0 SEEN Urine Bacteria 0 SEEN Urine Mucus 0 SEEN Treatment and Re-Evaluation Narrative: Urinalysis does reveal slightly worsened renal function with a creatinine of 2.2. Creatinine was 1.72 days ago. I do feel that this is likely obstructive in nature and now that Zapata catheter is in place this will significantly improve. Urinalysis reveals no sign of infection. At this time patient be given a leg bag. He will follow-up with Dr. Diaz. He has oxycodone at home for pain. Discharge Plan Triage Chief Complaint: Flank Pain ED Provider: Hawa Mccain Dx/Rx/DC Orders Clinical Impression: Urinary retention, Kidney stone Instructions: ED Zapata Catheter, Care, ED Urinary Retention, Male, ED Kidney Stone w/ Colic Prescriptions: No Action gabapentin 300 mg capsule 300 mg PO TID midodrine 2.5 MG tablet 2.5 mg PO BID albuterol sulfate 1 INHALER inhaler 2 puff inhalation Q4H PRN PRN (Reason: Sob &/Or Wheezing) ascorbic acid (vitamin C) 500 MG tablet 1,000 mg PO DAILY@0800 B-complex with vitamin C 1 CAPSULE capsule 1 cap PO DAILYCM vitamin E (dl, acetate) 400 UNITS capsule 400 units PO DAILYCM acetaminophen 500 MG tablet 1,000 mg PO Q6H PRN (Reason: Pain Score 1-5/10) 0RF tamsulosin 0.4 MG capsule 0.4 mg PO BID@0830,1730 Qty: 60 0RF pantoprazole 40 MG tablet 40 mg PO BID Qty: 60 0RF mirtazapine 15 MG tablet 15 mg PO QHS Qty: 30 0RF atorvastatin 40 mg Tablet 40 mg PO QHS lisinopril 10 mg Tablet 10 mg PO DAILY aspirin 81 mg Capsule 325 mg PO DAILY oxycodone-acetaminophen [Percocet] 5-325 mg tablet 1 tab PO Q6H PRN (Reason: pain) 5 Days Qty: 15 0RF oxycodone 5 mg tablet 5 mg PO Q6H PRN (Reason: pain) 3 Days Qty: 10 0RF ondansetron 4 mg tablet,disintegrating 4 mg PO Q8H PRN (Reason: nausea and vomiting) Qty: 10 0RF Primary Care Provider: Anderson Crowley Referrals: Yanick Diaz MD [Med Staff - Active Staff] - 3-5 Days Anderson Crowley MD [Primary Care Provider] - Disposition Disposition: Home, Self Care
[2022-04-26 19:14] VITALS: BP 178/94; PULSE 92
== END 2022-04-26 19:14 | disposition home or self-care (01) ==
PROVIDERS: Emergency Provider Emergency Medicine; PCP Family Medicine; Visit Provider Emergency Medicine
DX: N20.2 Calculus of kidney with calculus of ureter (principal); Z87.891 Personal history of nicotine dependence; I10 Essential (primary) hypertension; K21.9 Gastro-esophageal reflux disease without esophagitis; Z86.73 Personal history of transient ischemic attack (TIA), and cerebral infarction without residual deficits; Z79.899 Other long term (current) drug therapy; Z79.82 Long term (current) use of aspirin
CPT/HCPCS: 51702; 80048; 81001; 96374; 96375; 96376; 99284; A4216; J2405

== ENCOUNTER 2022-05-08 16:22 | Emergency (ER) | payer MEDICARE, OTHER, SELFPAY ==
[2022-05-08] VITALS (8 sets, daily range): BP systolic 118–143; BP diastolic 66–78; PULSE 77–103; RESP 12–18; TEMP 36.7; O2SAT 93–98; BMI 52.3; BMI 20.2
--- NOTE | 2022-05-08 16:23 | CT_ITS ---
We are attempting to reach an attending provider to discuss findings. An addendum with communication details will be sent when the communication is complete. STUDY: CTA HEAD AND NECK WITH CONTRAST REASON FOR EXAM: Male, 81 years old. Neuro deficit, acute, stroke suspected RADIATION DOSAGE (If Supplied By Facility): CTDIvol = ( 19.08 ) mGy, DLP = ( 684.81 ) mGycm TECHNIQUE: CT angiography was performed with a multi-detector CT scanner. Data acquisition was obtained from the skull base through the vertex following intravenous administration of IV 100mL Isovue-370. MIP images were reconstructed from the axial data set. Post-processing of the angiographic images was performed, with multiplanar reformation and 3D reconstruction. Individualized dose optimization techniques were used for this CT. COMPARISON: Noncontrast CT brain from today. FINDINGS: Normal bilateral petrous carotid arteries. Normal right cavernous carotid artery with a normal supraclinoid bifurcation. Normal left cavernous carotid artery with a normal supraclinoid bifurcation. Possible 2 mm aneurysm laterally. Normal right A1 segments of the anterior cerebral artery. Left A1 is hypoplastic and possibly occluded or nearly occluded proximally. Normal intact anterior communicating artery (ACOM). Normal bilateral A2 segments of the anterior cerebral arteries. Normal right M1 and M2 segments of the middle cerebral arteries, with a normal M1 bifurcation. Normal left M1 and M2 segments of the middle cerebral arteries, with a normal M1 bifurcation. There is non-visualization of the right posterior communicating artery (PCOM). There is non-visualization of the left posterior communicating artery (PCOM). Normal bilateral vertebral arteries. Normal basilar artery with a normal basilar bifurcation. The visualized bilateral superior cerebellar (SCA) arteries are normal. Normal bilateral P1, P2 and visualized P3 segments of the posterior cerebral arteries. There is no demonstrated aneurysm of the [place]. There is no demonstrated abnormality of the visualized brain. AORTIC ARCH: Normal visualized aortic arch. Normal origins of the brachiocephalic, left common carotid, and left subclavian arteries. RIGHT CAROTID ARTERIES: Patent stent distally. Patent stent. Moderate stenosis of the stent with a small linear defect just distal to the stent noted within the proximal internal carotid artery lumen. Normal visualized cervical portion of the right internal carotid artery. ROXIE not well visualized. LEFT CAROTID ARTERIES: Normal left common carotid artery (CCA). Normal left common carotid bulb. Normal origin of the left internal carotid (ICA) artery without a hemodynamically significant stenosis. Moderate stenosis cervical ICA. Moderate stenosis proximal ECA. VERTEBRAL ARTERIES: The one segment right vertebral artery occluded or nearly occluded. The vertebral artery reconstitutes at the V3 and V4 segments only. Left vertebral artery normal. CT/STROKE CTA Head AND Neck W/Con IMPRESSION: 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 Left A1 segment occluded or nearly occluded. Moderate stenosis right internal carotid artery stent and possible focal dissection just distal to the stent. Moderate stenosis left internal carotid artery. 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 Electronically Signed: Ivan Tovar MD at 17:04 EDT ,
--- NOTE | 2022-05-08 16:23 | EKG12_ITS ---
Test Reason : STROKE TEAM Blood Pressure : / mmHG Vent. Rate : 083 BPM Atrial Rate : 083 BPM P-R Int : 154 ms QRS Dur : 146 ms QT Int : 412 ms P-R-T Axes : 017 -79 042 degrees QTc Int : 484 ms Normal sinus rhythm Left axis deviation Right bundle branch block Abnormal ECG Confirmed by SHERIF ALLEN, TAMARA ([id number]), editor city MABEL MALAGON ([id number]) on 05/11/2022 9:39:02 AM Referred By: Confirmed By:RIVAS GORMAN MD
--- NOTE | 2022-05-08 16:24 | CT_ITS ---
We are attempting to reach an attending provider to discuss findings. An addendum with communication details will be sent when the communication is complete. STUDY: CT BRAIN WITHOUT CONTRAST REASON FOR EXAM: Male, 81 years old. Neuro deficit, acute, stroke suspected RADIATION DOSAGE (If Supplied By Facility): CTDIvol = ( ) mGy, DLP = ( 779.24 ) mGycm TECHNIQUE: Transaxial CT imaging of the brain was performed without administration of intravenous contrast material. Individualized dose optimization techniques were used for this CT. COMPARISON: No relevant priors. FINDINGS: Normal soft tissue structures. Normal calvarium. There is mild cerebral atrophy with widening of the extra-axial spaces and ventricular dilatation. There are areas of decreased attenuation within the white matter tracts of the supratentorial brain, consistent with microvascular disease changes. Normal basal ganglia and thalami. Normal brainstem. Normal cerebellum. There is no intracranial hemorrhage. There are no findings of an acute ischemic infarction. Normal visualized paranasal sinuses. CT/STROKE Brain/Head without Cont IMPRESSION: Chronic involutional changes of the brain. Electronically Signed: Ivan Tovar MD at 16:38 EDT ,
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
[2022-05-08 16:48] LABS: Absolute Lymphocyte Count 0.95 X10^3/uL (0.83-4.51); Absolute Neutrophil Count 9.3 X10^3/uL (2.0-7.7); Basophil# 0.06 X10^3/uL; Basophil% 0.5 % (0-1); Eosinophil# 0.22 X10^3/uL; Eosinophils% 1.9 % (0-5); Hematocrit 30.1 % (40-54); Hemoglobin 9.2 g/dL (13.0-16.5); Lymphocyte # 0.95 X10^3/ul (0.83-4.51); Lymphocyte % 8.4 % (19-41); Mean Corp Hgb Conc 30.6 g/dL (32-36); Mean Corpuscular Hgb 27.7 pg (27.0-32.0); Mean Corpuscular Volume 90.7 fL (80-94); Mean Platelet Vol. 10.2 fl (6.2-12.0); Monocyte# 0.75 X10^3/uL; Monocyte% 6.6 % (0-10); NRBC Flagged by Analyzer 0 % (0-5); Neutrophil # 9.26 X10^3/uL (2.7-7.7); Neutrophil % 81.6 % (47-70); Platelet Count 359 K/mm3 (150-450); RBC Distribution Width CV 14.4 % (11.6-14.6); RBC Distribution Width SD 47.6 fl (35.1-43.9); Red Blood Count 3.32 M/mm3 (4.6-6.2); White Blood Count 11.4 K/mm3 (4.4-11.0)
[2022-05-08 16:57] LABS: International Normalized Ratio 1.1; Prothrombin Time (Protime)PT. 14.4 SECONDS (11.7-14.9)
[2022-05-08 16:58] LABS: Partial Thromboplast Time 36.6 Seconds (24.1-36.2)
[2022-05-08] MEDS: 0.9% Normal Saline 1,000 ML 100 ML IV (17:04)
[2022-05-08 17:06] LABS: Anion Gap 7 (5-15); BUN 29 mg/dL (7-18); BUN/Creat Ratio 10.4 RATIO (10-20); Chloride 113 mmol/L (98-107); Creatinine, Serum 2.79 mg/dL (0.70-1.30); EST Glomerular Filtration Rate 23 mL/min (>60); Est Glom Filt Rate - Afr Amer 28 mL/min (>60); Estimated Creatinine Clearance 21.01 ml/min; Glucose 113 mg/dL (74-106); Potassium 4.8 mmol/L (3.5-5.1); Sodium Level 143 mmol/L (136-145); Troponin-I HS 6 pg/mL (3.0-78.0)
--- NOTE | 2022-05-08 17:14 | RAD_ITS ---
STUDY: X-RAY CHEST REASON FOR EXAM: Male, 81 years old. Neuro deficit, acute, stroke suspected TECHNIQUE: Single frontal view of the chest. COMPARISON: None. FINDINGS: Intraspinal electrodes in the thoracic spine are new. The lungs are clear and expanded. There is no demonstrated pleural abnormality. Normal size heart. Normal mediastinum and tanner. Normal visualized pulmonary arteries. Normal visualized aortic arch and descending thoracic aorta. Normal visualized thoracic spine. Normal visualized ribs, clavicles, and shoulders. There is no demonstrated abnormality of the visualized soft tissue structures of the upper abdomen. RAD/Chest 1 View IMPRESSION: New Spinal electrode otherwise Normal x-ray examination of the chest. Electronically Signed: Ivan Tovar MD at 17:47 EDT ,
--- NOTE | 2022-05-08 17:25 | ED.RN ---
CALLED BASSAM FERGUSON PER PT REQUEST TO UPDATE ON CONDITION
--- NOTE | 2022-05-08 19:36 | CM.ED ---
Social Work Note Reason for Referral: STROKE Alert SW responded to STROKE Alert, no family present. SW to remain available should additional needs arise. Rosette Rivera PAYMENT MANAGER, MANAGER TECHNICAL
== END 2022-05-08 18:04 | disposition short-term general hospital (02) ==
PROVIDERS: Emergency Provider Emergency Medicine; PCP Family Medicine; Visit Provider Emergency Medicine
DX: I63.411 Cerebral infarction due to embolism of right middle cerebral artery (principal); I77.71 Dissection of carotid artery; K21.9 Gastro-esophageal reflux disease without esophagitis; I10 Essential (primary) hypertension; Z86.73 Personal history of transient ischemic attack (TIA), and cerebral infarction without residual deficits; Z79.899 Other long term (current) drug therapy; Z79.82 Long term (current) use of aspirin; Z87.891 Personal history of nicotine dependence; R29.714 NIHSS score 14; I45.10 Unspecified right bundle-branch block
CPT/HCPCS: 70450; 70496; 70498; 71045; 80048; 84484; 85025; 85610; 85730; 93005; 96365; 99285; J2997; Q9967; A4216

== ENCOUNTER 2022-05-28 14:05 | Inpatient (IN) | payer MEDICARE, OTHER, SELFPAY ==
[2022-05-28 14:11] VITALS: BP 168/87; PULSE 80; RESP 18; TEMP 36.5; O2SAT 96; BMI 19.5
[2022-05-28 18:51] VITALS: BP 168/87; PULSE 80; RESP 18; TEMP 36.5; O2SAT 96
[2022-05-28 20:05] VITALS: O2SAT 94
[2022-05-28] MEDS: Mirtazapine 15 MG Tablet GT (22:43)
[2022-05-28] MEDS: Atorvastatin Calcium 80 MG Tablet GT (22:43)
[2022-05-28] MEDS: Doxazosin 1 MG Tablet 2 MG GT (22:43)
[2022-05-28] MEDS: Jevity 1.5. 1,000 ML Bottle 265 ML GT (22:44)
[2022-05-28] MEDS: Nystatin Powder 15gm Bottle 1 APPLIC TOPICAL (22:44)
[2022-05-28] MEDS: Gabapentin 300 MG Capsule GT (22:44)
[2022-05-28] MEDS: Fluticasone/Salmeterol 232-14 Inhaler 1 PUFF INHALATION (22:44)
--- NOTE | 2022-05-28 22:45 | NURSING ---
Assisting PLAN EXAMINER with peg feeding and medical biller, noted that small drips appeared on tubing. Peg tubing inspected with flashlight and noted tiny crack in tubing. Taped tightly, note left for Dr. Mccollum to address in am. Will continue to monitor.
[2022-05-29 05:38] LABS: Absolute Lymphocyte Count 0.68 X10^3/uL (0.83-4.51); Basophil# 0.05 X10^3/uL; Basophil% 0.6 % (0-1); Eosinophil# 0.36 X10^3/uL; Eosinophils% 4.6 % (0-5); Hematocrit 24.9 % (40-54); Hemoglobin 7.6 g/dL (13.0-16.5); Lymphocyte # 0.68 X10^3/ul (0.83-4.51); Lymphocyte % 8.7 % (19-41); Mean Corp Hgb Conc 30.5 g/dL (32-36); Mean Corpuscular Hgb 27.9 pg (27.0-32.0); Mean Corpuscular Volume 91.5 fL (80-94); Mean Platelet Vol. 11.2 fl (6.2-12.0); Monocyte# 0.66 X10^3/uL; Monocyte% 8.5 % (0-10); NRBC Flagged by Analyzer 0 % (0-5); Neutrophil # 5.96 X10^3/uL (2.7-7.7); Neutrophil % 76.3 % (47-70); Platelet Count 363 K/mm3 (150-450); RBC Distribution Width CV 15.7 % (11.6-14.6); RBC Distribution Width SD 51.6 fl (35.1-43.9); Red Blood Count 2.72 M/mm3 (4.6-6.2); White Blood Count 7.8 K/mm3 (4.4-11.0)
[2022-05-29 06:00] VITALS: BP 112/67; BP 70/44; BP 97/62; PULSE 100; PULSE 85; PULSE 87
[2022-05-29 06:07] LABS: ALB/GLOB Ratio 0.5 RATIO (0.9-2.4); AST(SGOT) 23 U/L (15-37); Alanine Aminotransfer ALT/SGPT 21 U/L (16-61); Alkaline Phosphatase 86 U/L (45-117); Anion Gap 5 (5-15); BUN 21 mg/dL (7-18); BUN/Creat Ratio 15.9 RATIO (10-20); Calcium,Total 8.5 mg/dL (8.5-10.1); Chloride 105 mmol/L (98-107); Creatinine, Serum 1.32 mg/dL (0.70-1.30); EST Glomerular Filtration Rate 56 mL/min (>60); Est Glom Filt Rate - Afr Amer 67 mL/min (>60); Estimated Creatinine Clearance 41.98 ml/min; Globulin 4.3 g/dL (2.2-4.2); Glucose 94 mg/dL (74-106); Magnesium 2.2 mg/dL (1.6-2.6); Phosphorus 3.8 mg/dL (2.5-4.9); Potassium 4.7 mmol/L (3.5-5.1); Protein, Total 6.3 g/dL (6.4-8.2); Sodium Level 139 mmol/L (136-145)
[2022-05-29] MEDS: Jevity 1.5. 1,000 ML Bottle 265 ML GT ×5 (06:18→22:26)
[2022-05-29] MEDS: Gabapentin 300 MG Capsule GT ×3 (06:18→22:25)
--- NOTE | 2022-05-29 06:39 | NURSING ---
Reviewed and agree with HANDYMAN assessment and handoff.
--- NOTE | 2022-05-29 06:49 | NURSING ---
Pt had 10 cc residual from PEG, pt tolerated well.
[2022-05-29 07:51] VITALS: BP 112/67; PULSE 86; RESP 16; TEMP 36.8; O2SAT 93
[2022-05-29] MEDS: Sertraline 50 MG Tablet 25 MG GT (08:24)
[2022-05-29] MEDS: Aspirin 81 MG TAB.CHEW 324 MG GT (08:25)
[2022-05-29] MEDS: Fluticasone/Salmeterol 232-14 Inhaler 1 PUFF INHALATION ×2 (08:25→22:26)
[2022-05-29] MEDS: Pantoprazole Sodium 40 MG Tablet PO (08:25)
[2022-05-29] MEDS: Nystatin Powder 15gm Bottle 1 APPLIC TOPICAL ×2 (08:33→22:26)
--- NOTE | 2022-05-29 14:30 | PCM.HP.STD ---
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 (treated with chem/radiation at [facility] [id number]), orthostatic hypotension with suspected autonomic neuropathy, esophageal stricture (dilated in 2018), GERD, chronic renal failure stage III, BPH, HLD, tobacco dependence in remission, remote TIA, esophageal stenosis with Dilation on 05/07/22 at [facility] (dual antiplatelet agents were held for the EGD and dilation), nephrolithiasis with history of lithotripsy, peripheral neuropathy secondary to chemotherapy, chronic macrocytic anemia (with a normal B12, TSH and folate), chronic rhinitis, COPD, osteoarthritis, pulmonary nodule, depression, PVD, COPD, AAA, upper left ventricular septal hypertrophy, DDD with hx of lumbar laminectomies and fusion at the [facility] in in September of 2018 who presented to the ED at [facility] on 05/08/22 via ambulance c/o left side paresthesias and weakness with inability to ambulate. NIH at presentation was 14. A noncontrast CT brain showed chronic involutional changes of the brain only. CTA of the head and neck showed left A1 segment occlusion, moderate stenosis of the right internal carotid artery stent and possible focal dissection distal to the stent, moderate stenosis of the left internal carotid artery and occlusion/near occlusion of the proximal right vertebral artery with reconstitution distally. 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 TPA was administered and the patient was transferred to [facility]. the NIHSS at [facility] was 4. He had a few complications while at [facility] which delayed DC to rehab. He was evaluated and followed while at [facility] by PT/OT/ST. Recommendation was made for acute rehab at DC from [facility]. He was transferred to the acute inpt rehab unit at [facility] on 05/28/22 for 3 hours of therapy daily to restore function at or near his level prior to the stroke. Seen by ENT at [facility] to evaluate a mucosal nodule on the epiglottis seen during the esophageal dilation at [facility]. He underwent nasopharyngoscopy and laryngoscopy which showed a normal base of the tongue without lesion or mass, lateral and posterior pharyngeal meraz appeared normal, he had postradiation erythema but no epiglottic lesions were seen. He was diagnosed with a nonfunctional larynx and PEG tube was recommended. He was seen by ID at [facility] for Enterococcus faecalis bacteremia/Enterococcus faecalis UTI and new imaging abnormalities on CT of the head along the R occipital lobe and right temporal lobe. Treated with Vancomycin x 2 weeks. Seen by urology at [facility] moderate L hydronephrosis with left distal ureteral stone, L kidney stones and distended bladder. Left ureteral stent placed on 05/21/22 PEG was inserted on 05/22/22. T fasteners should be removed in 5-7 days. Recommend PEG change every 3-6 months depending on the tube condition if used LT. TTE ordered for enterococcal faecalis bacteremia showed no valvular lesions. Received 1 unit of PRBC's on 05/22/22 for a HGB of 6.7. All documentation from [facility] was reviewed. Lab from this AM was personally reviewed. Hemoglobin is 7.6 today. The white blood cell count and platelets are within normal limits. Sodium is normal and the potassium is 4.7. BUN is 21 and creatinine is 1.32 which is better than his baseline dating back to September 2019. GFR is 56 which is consistent with stage IIIa chronic renal failure. LFTs are normal. Magnesium and phosphorus are normal. Albumin is low at 2.0. Hemoglobin A1c at [facility] was 5.8. The LDL was 57. Medication list was reviewed. [facility] Medical History (Updated 05/29/22 @ 18:[address] Willa Mccollum, ) Arthritis Back pain Benign neoplasm of colon Bifascicular bundle branch block BPH (benign prostatic hypertrophy) Cancer Cardiology follow-up encounter Chest pain Chronic cough Former smoker Former smoker Gastric reflux Grade I diastolic dysfunction History of echocardiogram History of hypertension History of pain when walking History of steroid therapy History of stress test Hoarseness Hypertension Injury of head and neck Loss of consciousness Lumbar spinal stenosis Osteoarthritis of left knee Pharyngeal cancer Rhinitis Shortness of breath on exertion Silent aspiration TIA (transient ischemic attack) Wears dentures Wears glasses Home Medications albuterol sulfate 90 mcg/actuation aerosol inhaler 2 puff inhalation Q6H PRN PRN Sob &/Or Wheezing 10/01/19 [History Last Taken Unknown] midodrine 2.5 mg tablet 2.5 mg PO BID bp 10/01/19 [History Last Taken 12/15/21 07:15] B-complex with vitamin C 1 cap PO DAILYCM supplement 10/12/19 [History Last Taken Unknown] ascorbic acid (vitamin C) 500 mg tablet 1,000 mg PO DAILY@0800 supplement 10/12/19 [History Last Taken Unknown] vitamin E (dl, acetate) 180 mg (400 unit) capsule 400 units PO DAILYCM supplement 10/12/19 [History Last Taken Unknown] acetaminophen 500 mg tablet 1,000 mg PO Q6H PRN Pain Score 1-5/10 10/31/19 [Rx Last Taken Unknown] tamsulosin 0.4 mg capsule 0.4 mg PO BID@0830,1730 prostate #60 caps 10/31/19 [Rx Last Taken Unknown] aspirin 81 mg capsule 325 mg feeding tube DAILY heart health 12/08/21 [History Last Taken Unknown] atorvastatin 40 mg tablet 80 mg feeding tube QHS cholesterol 12/08/21 [History Last Taken Unknown] lisinopril 10 mg tablet 10 mg PO DAILY 12/08/21 [History Last Taken 12/15/21 07:15] oxycodone-acetaminophen 5 mg-325 mg tablet (Percocet) 1 tab PO Q6H PRN pain 5 days #15 tabs 02/23/22 [Rx Last Taken Unknown] oxycodone 5 mg tablet 5 mg PO Q6H PRN pain 3 days #10 tabs 04/24/22 [Rx Last Taken Unknown] doxazosin 2 mg tablet (Cardura) 2 mg feeding tube QHS Bp 05/28/22 [History Last Taken Unknown] fluticasone furoate 200 mcg-vilanterol 25 mcg/dose inhalation powder 1 inh inhalation DAILY Check with primary doctor 05/28/22 [History Last Taken Unknown] gabapentin 300 mg/6 mL (6 mL) oral solution 300 mg feeding tube TID Check with primary doctor 05/28/22 [History Last Taken Unknown] guar gum 1 tbsp feeding tube DAILY bowel mobility 05/28/22 [History Last Taken Unknown] mirtazapine 15 mg tablet 15 mg feeding tube QHS sleep/appetite 05/28/22 [History Last Taken Unknown] pantoprazole 40 mg tablet,delayed release (Protonix) 40 mg PO DAILY Check with primary doctor 05/28/22 [History Last Taken Unknown] sertraline 25 mg tablet 25 mg feeding tube DAILY depression 05/28/22 [History Last Taken Unknown] Allergy/AdvReac Type Severity Reaction Status Date / Time mold Allergy NEEDS Verified 05/08/22 17:10 FOLLOW-UP house dust AdvReac SNEEZING Verified 05/08/22 17:10 morphine AdvReac Vomiting Verified 05/08/22 17:10 poison kayleen extract AdvReac Rash Verified 05/08/22 17:10 Family History (Updated 05/29/22 @ 15:[address] Willa Mccollum DO) Mother CAD (coronary artery disease) Brother COPD (chronic obstructive pulmonary disease) Family History no significant family his Surgical History (Updated 05/29/22 @ 16:[address] Willa Mccollum DO) H/O hernia repair History of cardiac catheterization History of esophageal dilatation History of laminectomy History of tonsillectomy Hx of colonoscopy Internal carotid artery stent present S/P total knee arthroplasty Spinal cord stimulator status Status post insertion of percutaneous endoscopic gastrostomy (PEG) tube Status post total left knee replacement Ureteral stent present Social History (Updated 05/29/22 @ 18:[address] Willa Mccollum DO) household members: none housing: house number of children: 0 current occupational status: retired Smoking Status: Former smoker Smokeless tobacco user: chewing tobacco and other how long ago did patient quit smokin alcohol intake: former substance use type: does not use ROS Constitutional Constitutional: Reports weakness; Denies anorexia, change in weight, chills, fatigue, fever(s) or night sweats Eyes Eyes: Denies blurry vision, change in vision, eye pain or loss of vision ENT HEENT: Reports dysphagia; Denies abnormal hearing, headache(s), hearing loss, nasal congestion or sore throat Cardiovascular Cardiovascular: Reports dyspnea on exertion; Denies chest pain, dizziness, dyspnea at rest, edema, flutter in chest, lightheadedness, orthopnea, palpitations, paroxysmal nocturnal dyspnea or syncope Respiratory/Chest Respiratory/Chest: Reports cough, dyspnea and shortness of breath with exertion; Denies shortness of breath at rest or wheezing Gastrointestinal Gastrointestinal: Reports other Details: Has had abd distention, eructation and flatulence recently. Also tells me that he feels like he has to have a BM but, he only passes gas. ; Denies abdominal pain, constipation, diarrhea, dyspepsia, hematemesis, hematochezia, nausea or vomiting Genitourinary Genitourinary: Reports other Details: He currently has a Zapata catheter that was present at admission to rehab. It was left in after recent L ureteral stent placement at [facility]. ; Denies dysuria, hematuria, nocturia, urinary frequency, urinary hesitancy, urinary incontinence or urinary urgency Musculoskeletal Musculoskeletal: Reports neck pain and other Details: Feels as though he can not extend his neck completely ; Denies back pain, joint pain or joint swelling Neurologic Neurologic: Reports other Details: some trouble finding the right word to say at times. ; Denies confusion, disequilibrium, dizziness, focal weakness, headache(s), paresthesias, radicular pain, seizures or tremor(s) Psychiatric Psychiatric: Reports cognitive impairment and depression; Denies anxiety, homicidal ideation, irritability, mood swings, panic attacks or suicidal ideation Endocrine Endocrinology: Denies change in body appearance, polydipsia or polyuria Hematologic/Lymphatic Hematologic/Lymphatic: Denies easy bleeding, easy bruising or lymphadenopathy Allergic/Immunologic Allergic/Immunologic: Denies rhinitis, eczemia or asthma Vital Signs Vital Signs Vital Signs: 05/28/22 18:51 05/28/22 20:05 05/28/22 22:45 Temperature 97.7 F L Temperature Source Temporal Pulse Rate 80 Pulse Rate [Lying] Pulse Rate [Sitting (for 1 minute prior to obtaining)] Pulse Rate [Standing (for 1 minute prior to obtaining)] Pulse Strength Normal (2+) Respiratory Rate 18 Respiratory Effort Respiratory Depth Respiratory Pattern Blood Pressure 168/87 H Blood Pressure [Lying] Blood Pressure [Sitting (for 1 minute prior to obtaining)] Blood Pressure [Standing (for 1 minute prior to obtaining)] Blood Pressure Mean 114 Blood Pressure Mean [Lying] Blood Pressure Mean [Sitting (for 1 minute prior to obtaining)] Blood Pressure Mean [Standing (for 1 minute prior to obtaining)] Blood Pressure Source Manual Blood Pressure Position Semi-Fowlers Blood Pressure Location Right Arm Pulse Ox 96 94 Oxygen Delivery Method Room Air Room Air 05/29/22 06:00 05/29/22 07:50 05/29/22 07:51 Temperature 98.3 F Temperature Source Oral Pulse Rate 86 Pulse Rate [Lying] 87 Pulse Rate [Sitting (for 1 minute prior to obtaining)] 85 Pulse Rate [Standing (for 1 minute prior to obtaining)] 100 Pulse Strength Respiratory Rate 16 Respiratory Effort Respiratory Depth Respiratory Pattern Blood Pressure 112/67 Blood Pressure [Lying] 112/67 Blood Pressure [Sitting (for 1 minute prior to obtaining)] 97/62 Blood Pressure [Standing (for 1 minute prior to obtaining)] 70/44 L Blood Pressure Mean 82 Blood Pressure Mean [Lying] 82 Blood Pressure Mean [Sitting (for 1 minute prior to obtaining)] 73 Blood Pressure Mean [Standing (for 1 minute prior to obtaining)] 52 Blood Pressure Source Monitor Blood Pressure Position Semi-Fowlers Blood Pressure Location Right Arm Pulse Ox 93 Oxygen Delivery Method Room Air Room Air 05/29/22 10:00 05/29/22 10:00 Temperature Temperature Source Pulse Rate Pulse Rate [Lying] Pulse Rate [Sitting (for 1 minute prior to obtaining)] Pulse Rate [Standing (for 1 minute prior to obtaining)] Pulse Strength Normal (2+) Respiratory Rate Respiratory Effort Normal Respiratory Depth Normal Respiratory Pattern Normal Blood Pressure Blood Pressure [Lying] Blood Pressure [Sitting (for 1 minute prior to obtaining)] Blood Pressure [Standing (for 1 minute prior to obtaining)] Blood Pressure Mean Blood Pressure Mean [Lying] Blood Pressure Mean [Sitting (for 1 minute prior to obtaining)] Blood Pressure Mean [Standing (for 1 minute prior to obtaining)] Blood Pressure Source Blood Pressure Position Blood Pressure Location Pulse Ox Oxygen Delivery Method Room Air Weight Weight: 144 lb 2.917 oz Body Mass Index (BMI) 19.5 Physical Exam Const alert, oriented x3 and no apparent distress Constitutional Narrative: He is thin and meets criteria for malnutrition. Does not appear to be in any distress. He is pleasant and talkative and makes good eye contact with me when we are conversing. He is cooperative and he appears well kempt. HEENT normocephalic, head/scalp atraumatic and hearing grossly normal bilaterally HEENT Narrative: Dry mucous membranes Eyes PERRL, EOMs intact bilaterally, conjunctivae normal, no scleral icterus and normal visual nettles by confrontation General Eye: normal appearance of both eyes Neck Neck Narrative: Decreased range of motion with side bending, extension and rotation. Has some spasm in the trapezius muscles bilaterally, right greater than left. Skin over the anterior neck is somewhat fibrotic. No adenopathy. General: trachea midline Carotids: Negative for bruit or carotid tenderness Lymph Lymphatic: no lymphadenopathy noted Chest Chest: symmetrical chest wall rise Resp normal respiratory effort, no retractions, no use of accessory muscles and clear to auscultation bilaterally Resp Narrative: Not tachypneic, breathing easily at rest. No pursed lip breathing at rest Effort and Inspection: able to speak in complete sentences Cardio regular rate, regular rhythm, S1 normal heart sound, S2 normal heart sound, no murmurs, no rub and no gallops GI GI Narrative: The abd is distended and tympanic. BS's are very active. He had no masses. No guarding with palpation and he denies abd pain. The PEG site has no erythema and no DC. Bladder / Kidney Exam: catheter in place Back/Spine General Back: Negative for CVA tenderness Extremity no calf tenderness and no pedal edema Skin General Skin Exam: no breakdown Rashes: no rashes Neuro oriented x3, CN's II-XII intact bilaterally, moves all extremities and no focal motor deficits Neuro Narrative: He has decreased sensation in the left upper and mid face....mild. No neglect. No tremors. 1. LOC Alert: 0 2. LOC/Orientation: 0 3. LOC Commands: 0 4. Horizontal extraocular movements : 0 5. Visual nettles: 0 6. Facial Paresis: 0 7. Dysarthria: 0 8. Best Language/aphasia: 0 9. Motor Left ARM : 0 10. Motor Left LE 11. Motor Right ARM: 0 12. Motor Right leg LE 13. Limb ataxia: 0 14. Sensory: 1 15. Neglect: 0 TOTAL SCORE: 0 Coordination / Balance: [id number] test normal and [id number] test normal Psych mental status grossly normal, thought process normal, cooperative, affect normal, activity/motor behavior normal, denies hallucinations, denies homicidal ideation and denies suicidal ideation Appearance: grossly normal, appropriate and well kempt Attitude: calm Activity / Motor Behavior: appropriate eye contact Results Medical Records Data Medical Nutrition Assessment Dietitian: Malnutrition Criteria Met Start: 05/28/22 15:25 Freq: Status: Active Protocol: Document 05/28/22 15:25 (Rec: 05/28/22 15:25 [id number]) Nutrition Malnutrition Evidence of Malnutrition Exists Yes Malnutrition (severe): Chronic Evidenced By Suboptimal Energy Intake ( Severe),Weight Loss (Severe), Physical Changes (Severe) Clinical Problem Chronic Disease or Condition Related Malnutrition Etiology chronic, severe malnutrition related to inadequate energy intake d/t swallowing difficulties Signs/Symptoms as evidenced by estimated PO intake meeting <75% of estimated energy needs >3 months; unintentional wt loss of ~20.8#/13% x ~6 months; obvious, severe muscle wasting fat loss evident in orbital, clavicle, acromion, and temporal areas per physical exam; BMI 19.6 Status Active Problem Recommendation Dietitian Recommendations/Changes NPO per SOLUTION STRATEGIST; Via PEG- Jevity 1 .5 bolus feeds of 265mL 5x/day w/ 100mL H2O flush before and after each bolus to provide 1988 calories, 84.5 g protein, and 2007mL total fluid/day. Will start w/ 130mL Jevity 1.5 for first bolus; increase to 190mL bolus for second feeding as tolerated; increasing to goal of 265mL bolus as tolerated. Lab / Micro Data Result Diagrams: 05/29/22 05:00 05/29/22 05:00 Labs: Laboratory Results - last 24 hr 05/29/22 05:00: WBC 7.8, RBC 2.72 L, Hgb 7.6 L, Hct 24.9 L, MCV 91.5, MCH 27.9, MCHC 30.5 L, RDW Std Deviation 51.6 H, RDW Coeff of Gustabo 15.7 H, Plt Count 363, MPV 11.2, Immature Gran % (Auto) 1.300 H, Neut % (Auto) 76.3 H, Lymph % (Auto) 8.7 L, Vilas % (Auto) 8.5, Eos % (Auto) 4.6, Baso % (Auto) 0.6, Absolute Neuts (auto) 6.0, Absolute Lymphs (auto) 0.68 L, Nucleated RBC % 0 05/29/22 05:00: Sodium 139, Potassium 4.7, Chloride 105, Carbon Dioxide 29.0, Anion Gap 5, BUN 21 H, Creatinine 1.32 H, Estim Creat Clear Calc 41.98, Est GFR (MDRD) Af Amer 67, Est GFR (MDRD) Non-Af 56 L, BUN/Creatinine Ratio 15.9, Glucose 94, Calcium 8.5, Phosphorus 3.8, Magnesium 2.2, Total Bilirubin 0.50, AST 23, ALT 21, Alkaline Phosphatase 86, Total Protein 6.3 L, Albumin 2.0 L, Globulin 4.3 H, Albumin/Globulin Ratio 0.5 L Assessment & Plan Assessment/Plan (1) Debility: (2) Acute cerebrovascular accident (CVA) due to ischemia: PLAN: R occipital lobe due to LV disease. Received TPA. (3) Acute on chronic blood loss anemia: PLAN: More likely than not due to gross hematuria due to nephrolithiasis and then ureteral stent placement on the left (4) Internal carotid artery stent present: PLAN: Placed in November 2021 at [facility] (5) Restenosis of arterial stent: PLAN: R ICA 50-60% stenosis on CTA head done 05/08/22 (6) History of malignant neoplasm of larynx: PLAN: Diagnosed in 2008 and treated with chemo/radiation (7) Silent aspiration: PLAN: all consistencies due to non-functional larynx following tx with chemo/radiation for laryngeal CA in 2008 at [facility]. (8) Presence of externally removable percutaneous endoscopic gastrostomy (PEG) tube: (9) History of esophageal dilatation: PLAN: 05/07/22 at [facility] (10) Normochromic normocytic anemia: PLAN: Chronic (11) Nephrolithiasis: PLAN: Recent stone impacted at the L [facility] causing L nephrolithiasis and UTI with bacteremia from Enterococcus faecalis. Stent placed in the L ureter. (12) Asymmetric septal hypertrophy: (13) Spinal cord stimulator status: PLAN: Placed 12/15/[address] Gardner at [facility] for chronic back pain. (14) Ureteral stent present: PLAN: Left (15) GERD (gastroesophageal reflux disease): (16) Depression: (17) Urinary retention: (18) COPD (chronic obstructive pulmonary disease): (19) Hypertension: (20) Neuropathic pain: (21) Abdominal distention: PLAN: Plan PLAN PT for gait stability OT for ADL's ST for evaluation Analgesics as needed Bowel protocol Fall precautions Assess for Anxiety/Depression GI prophylaxis with Protonix 40 mg per PEG tube daily DVT prophylaxis with SCDs and MIKE coy Follow up with PCP, neurology, urology and surgery for PEG replacements following DC from [facility] AM lab including CMP, CBC, Mag and Phos - personally reviewed. KUB today UA with urine culture since he has a Zapata present and he recently had an Enterococcus faecalis urinary tract infection, left ureteral obstruction secondary to a stone and Enterococcus faecalis bacteremia. Will need to contact urology at [facility] to see how long the catheter will need to remain in. will do post void residuals following catheter removal. Try arthritis cream on the posterior neck and trapezius muscles to see if it helps with pain relief. Unit Exclusion This patient is an acute care inpatient being housed in the excluded unit because of capacity issues related to the disaster or emergency.: Yes Charges/Coding Visit Charges Inpatient E&M: 78496 Init Hosp L3
--- NOTE | 2022-05-29 15:49 | CHAPLAIN ---
Type of Pastoral Visit _x__ Initial Visit ___ Follow-up Visit ___ On-call Visit ___ General Patient Visit ___ Spiritual Assessment ___ Family Conference ___ Bereavement ___ Rapid Response ___ Code Blue ___ Other (describe below) Pastoral Care Referral From _x__ Patient ___ Family ___ Nurse ___ Physician ___ Coal Carrier ___ Gaming Surveillance Observer ___ Other (describe below) Sacrament/Intervention _x__ Active listening ___ Anointing ___ Methodist ___ Bereavement ___ Communion ___ Bee exploration ___ _x__ Life review _x__ Prayer ___ Reconciliation ___ Sacrament of Sick _x__ Supportive presence ___ Wedding ___ Other (describe below) Pastoral Comments patient is resting in bed; pt states that he is recovering from a stroke that has mostly affected his ability to swallow; pt says I am dealing with it; pt states that he has no family but does have a few friends and a rastafari that he finds helpful; pt does some life review and talks about his work history and interest in baseball; pt welcomes a prayer; pt is tearful after the prayer and expresses thanks for the visit and time
--- NOTE | 2022-05-29 18:17 | RAD_ITS ---
EXAM: XR ABDOMEN, 1 VIEW CLINICAL INDICATION: distension TECHNIQUE: Frontal supine view of the abdomen/pelvis. This report was created using OpenBook report generation technology. COMPARISON: None. FINDINGS: LOWER THORAX: No acute pathology. GASTROINTESTINAL TRACT: Diffuse gaseous distention of the colon may suggest a colonic ileus. ORGANS: Unremarkable as visualized. No organomegaly. No abnormal calcifications. BONES/JOINTS: Lumbar spinal fixation hardware noted. SOFT TISSUES: There is a right side sided subcutaneous implanted electronic device with leads extending into the spinal canal. This is likely an SCS (spinal cord stimulator). TUBES, LINES AND DEVICES: Double-J left ureteral stent in place. There is a PEG tube in place. OTHER FINDINGS: . RAD/Abdomen Single View IMPRESSION: Diffuse gaseous distention of the colon may suggest a colonic ileus. Electronically Signed: Felix Hamlin MD at 19:56 EDT ,
--- NOTE | 2022-05-29 18:32 | PCM.RU.PYE ---
Admission Information Primary Diagnosis:: Post stroke debility Status Changes from Prescreening?: No changes Identified Actual Problem List:: Pain, ALteration in Cmfrt, Cognitve Impr/Memory Loss, Depression, Bowel, Constipation, Alteration in Sleep, Alteration in Nutrition, Mobility Impaired and Alteration-Leisure Activ. Potential Problem List:: DVT, Bleeding, Infection, UTI, Aspiration, Falls, Skin Integrity and Depression Risk of Complications DVT: MIKE Hose and Sequential Compression Device Bleeding: Monitor Lab Values, Nursing to Teach Precautions for anti-coagulation therapy., Wound, if applicable, to be assessed every shift. and Stroke patients assessed for lethargy or change in status. Infection: Clinical Staff to Monitor for S/S of infection: and S/S of infection include fever, redness, warmth, etc. Urinary Tract Infection: Monitor for frequency, burning, discomfort, or incontinence. and Nursing will obtain urine sample for urinalysis and C&S when ordered. Aspiration: Clinical staff will monitor for coughing, drooling, congestion., Speech will evaluate swallowing and dsyphasia. and Nursing will monitor patient swallowing during meals. Falls: Patient will be evaluated for Fall Precautions and Patient will be placed on Fall Precautions as indicated per protocol. Skin Breakdown: Nursing will assess skin daily using assessment tool. and Nursing will place on Skin Breakdown Precautions as indicated. Pain: Clinical staff will assess patient's pain level per protocol., Medications will be given, if needed, and the pain level reassessed. and Other methods: Massage, distraction, decrease stimulus, etc. used PRN. Plan of Care Patient requires physician specializing in physical medicine and rehab oversight to provide close medical supervision of rehab issues including: Pain Management, Sleep Problems, Bowel and Bladder, Medical and co-morbidity Management, DVT prophylaxis, Rehabilitation Leadership and Coordination of treatment team Patient needs Physical Therapy: For a minimum of 1 hour and At least 5 out of 7 days Patient needs Physical Therapy to improve:: Mobility, Strengthening, Transfers, Stretching, ROM, Endurance, Stairs, Gait and Balance Patient needs Occupational Therapy: For a minimum of 1 hour and At least 5 out of 7 days Patient needs Occupational Therapy to improve ADL's incl.: Eating, Grooming, Bathing, Dressing, Toileting, Toilet transfers, Community Reintegration, Higher functioning activities, Household tasks, Adaptive Equipment, Splinting and Other activities as determined Patient requires speech therapy: For a minimum of 1 hour and At least 5 out of 7 days Patient requires speech therapy for: Swallowing, Cognition, Language Skills and Compensatory Strategies Patient requires 24/7 Rehabilitation Nursing for: Pain Issues, Identifying and preventing risk factors, Monitoring and reporting current medical conditions, Assisting with ambulation, transfer, and all ADL's, Teaching patients about disease process and medications, Family teaching, Providing safe environment, Bowel and Bladder Issues, Skin integrity and Medication Management Patient needs Insurance Verification Specialist/ Case Management for: Discharge Planning, Arranging Home Equipment or Services and Family Interventions Patient needs Dietary and Nutrition Services for: Adequate Nutrition, Nutritional Supplements and Nutritional Education Goals Patient will remain: free from falls and or injury at time of discharge. Patient will perform bed mobility at: MOD I level of assist. Patient will complete transfers from bed to chair at: MOD I level of assist. Patient will ambulate: - (500 feet with a straight cane at mod I) Patient will complete upper body dressing at: MOD I level of assist. Patient will complete lower body dressing at: MOD I level of assist. Patient will complete toileting at: MOD I level of assist. Patient will perform bathing at: MOD I level of assist. Patient will complete grooming at: MOD I level of assist. Patient will complete home management skills at: MOD I level of assist. Patient will achieve: - (Ascend/descend 13 steps with 1 handrail at mod I) Patient will have pain level of: of 3 or less Patient's skin will: remain intact Patient will receive: adequate nutrition. Discharge Planning Pt Prognosis for Sig. Practical Improv. w/in Reasonable Time: Good Estimated Length of stay (days): 21 Anticipated D/C Destination: Home
[2022-05-29 19:34] VITALS: BP 122/70; PULSE 83; RESP 18; TEMP 36.5; O2SAT 94
[2022-05-29] MEDS: Arthritis Pain Compound 60 CLICK TUBE TOPICAL (22:24)
[2022-05-29] MEDS: Mirtazapine 15 MG Tablet GT (22:25)
[2022-05-29] MEDS: Doxazosin 1 MG Tablet 2 MG GT (22:25)
[2022-05-29] MEDS: Atorvastatin Calcium 80 MG Tablet GT (22:26)
--- NOTE | 2022-05-30 03:40 | NURSING ---
Reviewed and agree with Patricia Govea LPN, assessment and documentation charting.
[2022-05-30] MEDS: Jevity 1.5. 1,000 ML Bottle 265 ML GT ×5 (05:37→22:00)
[2022-05-30] MEDS: Gabapentin 300 MG Capsule GT ×3 (05:37→22:00)
[2022-05-30 05:43] LABS: Mucous, Urine 0 SEEN /hpf (<or=2+); Squamous Epithelial Cells - UA 0 SEEN /hpf (0-5)
[2022-05-30 05:57] LABS: Color, Urine Yellow (Yellow); Glucose, Dipstick Normal (Normal); Ketone-Dipstick Negative (Negative); Leukocyte Esterase-Dipstick 500 /ul (Negative); Nitrite-Dipstick Negative (Negative); Occult Blood-Urine 250 /ul (Negative); Protein-Dipstick 15 mg/dl (Negative); Urine Bilirubin Dipstick Negative (Negative); Urine Clarity Clear (Clear); Urine Urobilinogen Normal (Normal)
[2022-05-30 06:05] LABS: Bacteria 1+ /hpf (None Seen); Red Blood Cells-Urine 25-50 SEEN /hpf (0-5); White Blood Cells 0-5 SEEN /hpf (0-5)
[2022-05-30 07:57] VITALS: BP 109/56; PULSE 70; RESP 15; TEMP 36.1; O2SAT 95
[2022-05-30] MEDS: Arthritis Pain Compound 60 CLICK TUBE TOPICAL ×2 (08:39→22:01)
[2022-05-30] MEDS: Fluticasone/Salmeterol 232-14 Inhaler 1 PUFF INHALATION ×2 (08:39→21:59)
[2022-05-30] MEDS: Aspirin 81 MG TAB.CHEW 324 MG GT (08:46)
[2022-05-30] MEDS: Sertraline 50 MG Tablet 25 MG GT (08:47)
[2022-05-30] MEDS: Pantoprazole Sodium 40 MG Tablet PO (08:47)
[2022-05-30] MEDS: Nystatin Powder 15gm Bottle 1 APPLIC TOPICAL ×2 (10:50→22:00)
[2022-05-30] MEDS: Magnesium Hydroxide 30 ML UDC PO (17:55)
[2022-05-30 21:00] VITALS: BP 95/60; PULSE 78; RESP 16; TEMP 36.6; O2SAT 98
[2022-05-30 21:15] VITALS: BP 95/60; PULSE 78; RESP 16; TEMP 36.6; O2SAT 98
[2022-05-30] MEDS: Atorvastatin Calcium 80 MG Tablet GT (21:59)
[2022-05-30] MEDS: Doxazosin 1 MG Tablet 2 MG GT (21:59)
[2022-05-30] MEDS: Mirtazapine 15 MG Tablet GT (21:59)
--- NOTE | 2022-05-31 01:48 | NURSING ---
Reviewed and agree with METAL FILER assessment and handoff.
[2022-05-31 02:25] VITALS: BMI 19.5
[2022-05-31] MEDS: Gabapentin 300 MG Capsule GT ×3 (06:04→21:56)
[2022-05-31] MEDS: Jevity 1.5. 1,000 ML Bottle 265 ML GT ×5 (06:04→21:57)
[2022-05-31 07:41] VITALS: O2SAT 98
[2022-05-31 08:11] VITALS: BP 107/68; PULSE 75; RESP 14; TEMP 36.7; O2SAT 93
[2022-05-31] MEDS: Arthritis Pain Compound 60 CLICK TUBE TOPICAL ×2 (08:16→21:48)
[2022-05-31] MEDS: Menthol/Lanolin/Calamine/Znox 113 GM Tube 1 APPLIC TOPICAL ×2 (08:16→21:57)
[2022-05-31] MEDS: Fluticasone/Salmeterol 232-14 Inhaler 1 PUFF INHALATION ×2 (08:17→21:56)
[2022-05-31] MEDS: Nystatin Powder 15gm Bottle 1 APPLIC TOPICAL ×2 (08:17→21:58)
[2022-05-31] MEDS: Aspirin 81 MG TAB.CHEW 324 MG GT (08:17)
[2022-05-31] MEDS: Pantoprazole Sodium 40 MG Tablet PO (08:18)
[2022-05-31] MEDS: Sertraline 50 MG Tablet 25 MG GT (08:18)
[2022-05-31 15:33] VITALS: BMI 19.5
[2022-05-31 20:00] VITALS: BP 101/53; PULSE 74; RESP 15; TEMP 36.8; O2SAT 95; BMI 19.5
[2022-05-31] MEDS: Doxazosin 1 MG Tablet 2 MG GT (21:56)
[2022-05-31] MEDS: Atorvastatin Calcium 80 MG Tablet GT (21:56)
[2022-05-31] MEDS: Mirtazapine 15 MG Tablet GT (21:57)
--- NOTE | 2022-06-01 04:29 | NURSING ---
Reviewed and agree with LOGGER DRIVING HORSES assessment and handoff.
[2022-06-01] MEDS: Gabapentin 300 MG Capsule GT ×3 (06:00→21:43)
[2022-06-01] MEDS: Jevity 1.5. 1,000 ML Bottle 265 ML GT ×5 (06:01→21:45)
--- NOTE | 2022-06-01 06:55 | NURSING ---
pt refused to have his teds applied this am, pt made aware of the complications of not wearing teds and pt acknowledged this .
[2022-06-01 07:20] VITALS: BP 132/72; PULSE 78; RESP 16; TEMP 37; O2SAT 93
[2022-06-01] MEDS: Fluticasone/Salmeterol 232-14 Inhaler 1 PUFF INHALATION ×2 (08:26→21:43)
[2022-06-01] MEDS: Aspirin 81 MG TAB.CHEW 324 MG GT (08:27)
[2022-06-01] MEDS: Sertraline 50 MG Tablet 25 MG GT (08:27)
[2022-06-01] MEDS: Arthritis Pain Compound 60 CLICK TUBE TOPICAL ×2 (08:27→21:43)
[2022-06-01] MEDS: Menthol/Lanolin/Calamine/Znox 113 GM Tube 1 APPLIC TOPICAL ×2 (08:28→21:44)
[2022-06-01] MEDS: Pantoprazole Sodium 40 MG Tablet PO (08:28)
[2022-06-01 08:30] VITALS: O2SAT 94
[2022-06-01] MEDS: Nystatin Powder 15gm Bottle 1 APPLIC TOPICAL ×2 (11:13→21:45)
--- NOTE | 2022-06-01 12:18 | PN_ITS ---
Progress Note Jose Daniel was seen on TEAM rounds today. His POA Jesse was present in the room and his friend Leigh Ann was also present. Afebrile VSS-blood pressure is adequately controlled. Maintaining appropriate oxygen saturation on RA Oral intake is good Discussed with nursing - no problems that need addressed Reviewed the PT/OT/ST notes - is now doing some comfort food with him. He will need the PEG for the rest of his life to get enough nutrition and fluids to sustain himself. PT reports he will no use an assistive device to ambulate and he is wobbly due to neuropathy and a bad ankle from an injury in the past. HE tells me that he gets in the way when he is trying to do things......I explained when he is in his house he does not have to use it but, when is in the yard or ambulating in the community it should be used anytime he is walking to help with balance. If he is standing doing a project in the yard he can lay the cane down. He is orthostatic and has been on Midodrine in the past. The Midodrine was discontinued at [facility] but, when he presented to rehab the systolic dropped to 70 when he stood and he got woozy. Flomax was discontinued but, he was started on Doxazosin which is also associated with orthostatic hypotension.......may need to restart Midodrine. Medication list reviewed. Urine culture had no growth. I reviewed a note from the urologist who inserted the ureteral stent. OK to DC the Zapata since he has been on the Doxazosin for 5 days at least. Will do PVR's. Straight cath if > 200. Alex denies CP, SOB at rest, nausea, abdominal pain. He is still c/o gas with eructation and flatulence. The XRAY did not show a lot of stool accumulation but, there is gaseous distension throughout the colon........no o bstruction...there is air in the rectum. He had a soft liquidy BM yesterday. No emesis. Physical Exam Const alert, oriented x3 and no apparent distress Constitutional Narrative: Sitting in the recliner at the bedside. Looks comfortable. He is not always cooperative with therapy........he only does what he wants to do at times. He is pleasant and he wants to go home at [place] and live by himself. General Appearance: well kempt and frail; Negative for anxious or combative Resp Resp Narrative: Diminished but CTA, no tachypnea, no accessory muscle use and no conversational dyspnea. Not coughing. Cardio Cardio Narrative: no gallops GI GI Narrative: Less distended and much softer. No hyperactive BS's. BS's are present but, diminished. He has no guarding with palpation and denies abd pain. Narrative: Alex is uncircumcised. When the Zapata was inserted at [facility] was inserted the foreskin was pulled back from the glans and never pulled back over the glans w hen the procedure was completed. The foreskin is now swollen, red and painful. I was able to pull the foreskin over the glans but, due to the swelling it wants to retract again. There is no erythema of the glans and no purulent DC around the Zapata. Extremity Extremity Narrative: no edema and no calf tenderness. He has an implanted stimulator for pain control in his back and legs but, he has not been able to use it because the battery needs charged. Jesse will bring the electronic warfare officer and the remote in so we can charge the remote this will help with pain control. Assessment & Plan Assessment/Plan (1) Debility: (2) Acute cerebrovascular accident (CVA) due to ischemia: (3) Acute pseudo-obstruction of colon: (4) Cellulitis: (5) Orthostatic hypotension: (6) Acute on chronic blood loss anemia: (7) Silent aspiration: (8) Presence of externally removable percutaneous endoscopic gastrostomy (PEG) tube: (9) Ureteral stent present: PLAN: for Left ureteral obstruction at the UPJ due to a stone. PLAN: Plan 1. Continue therapy. 2. Consult Dr. Ruggiero for the cracked PEG tube and for colonic pseudoobstruction. 3. Encouraged Alex to use a cane when he is walking outside on his house, wendy when on uneven surfaces 4. I advised compression stockings to help with orthostasis but, he does not plan on doing this. Will repeat the orthostatics today and if the systolic is less than 90 and he is dizzy will likely have to restart the Midodrine. He was taking 5 mg a day at home because he could not break the pills in half - he was supposed to be taking 2.5 mg BID. I have also recommended elevating the HOB at home on 6 inch blocks to help prevent supine HTN. 5. DAVIDSON Zapata today and start Bactrim suspension 160/800 mg BID for 5-7 days 6. Cool compresses to the foreskin TID 7. CBC with diff, BMP and Mag in the AM. Visit Charges Inpatient E&M: 64391 Subs Hosp L2
--- NOTE | 2022-06-01 13:33 | CASEMGMT ---
Social Work IDT met with patient, Jesse and Leigh Ann, friends for Team meeting. Discussed patient's progress in PT/OT/ST/SN. Educated to Medicare benefit. SW to update on approval of days. Pts goal is to return home alone. ST and educated that peg is going to be permanent but discussed pleasure eating at times. Nursing to start training with pt and Jesse/Leigh Ann for DC. SW to order any needs at DC. Will ReTeam. SW to continue to follow. Hansa Kerr, MANAGER BUSINESS PROCESS IMPLEMENTATION ADVISOR
[2022-06-01 14:31] VITALS: BMI 19.5
[2022-06-01 15:06] VITALS: BP 105/55; BP 120/60; BP 79/53; PULSE 102; PULSE 78; PULSE 79
--- NOTE | 2022-06-01 15:18 | NURSING ---
2 suture buttons removed around peg tube per order. Patient tolerated well.
--- NOTE | 2022-06-01 17:08 | CON.PCM_ITS ---
Assessment & Plan Assessment/Plan (1) Presence of externally removable percutaneous endoscopic gastrostomy (PEG) tube: PLAN: Patient has a hole in the midportion of the PEG tube that should be replaced. I will see if we can put a button PEG during EGD. I would like to look inside of his stomach to look at the stoma because there was a very big incision made in his abdomen to create a hole for a 20 [place] PEG. I would like to make sure that it is no signs of buried bumper inside that could lead to his ileus. On x-ray I did not see any signs of pneumoperitoneum or peritonitis. There was also no subcutaneous emphysema or significant erythema around the new stomal site. There is some mild bleeding that we can treat with silver nitrate. (2) Ileus: PLAN: After the PEG tube is replaced he will need scheduled simethicone and proton pump inhibitor to decrease to gas. I think most of the gas that is seen in his colon is secondary to chronic constipation from the patient not moving along with administration of a very high sugary based protein supplement and tube feeding. We may have to increase his water flushes pending evaluation tomorrow. At this time he is getting 100 cc every 6 hours I typically would increase that up to 250 every 6 hours over 7 days along with administration of an anthraquinone while he is tolerating his new PEG tube. 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 He also has a history of recurrent esophageal stricture secondary to hiatal hernia and gastroesophageal reflux disease, stage III CKD, BPH, hyperlipidemia, nicotine addiction and possible COPD along with osteoarthritis, AAA. He also has a history of left right internal carotid artery stenosis status post stent and stenosis of the left internal carotid artery with diagnosis of acute CVA. This was treated with tPA and patient was transferred to [facility] for rehab. While in rehab he was evaluated by ENT and gastroenterology.He underwent nasopharyngoscopy and laryngoscopy which showed a normal base of the tongue without lesion or mass, lateral and posterior pharyngeal meraz appeared normal, he had postradiation erythema but no epiglottic lesions were seen. He was diagnosed with a nonfunctional larynx: Oropharyngeal dysphagia resulting in need for PEG tube. He has had 2 PEG tubes placed. His recent PEG tube was placed back in 05/22/2022. I was asked to see him due to a crack in the midportion of the PEG tube. He has also been experiencing chronic constipation. As per nursing he is having bowel movement possibly every 3 days. He was given magnesium citrate and he had a small bowel movement. Imaging with a abdominal x-ray had shown persistent ileus of the colon without signs of obstruction. [facility] Medical History (Updated 06/01/22 @ 17:[address] Murray Friend, DO) Arthritis Back pain Benign neoplasm of colon Bifascicular bundle branch block BPH (benign prostatic hypertrophy) Cancer Cardiology follow-up encounter Chest pain Chronic cough Former smoker Former smoker Gastric reflux Grade I diastolic dysfunction History of echocardiogram History of hypertension History of pain when walking History of steroid therapy History of stress test Hoarseness Hypertension Injury of head and neck Loss of consciousness Lumbar spinal stenosis Osteoarthritis of left knee Pharyngeal cancer Rhinitis Shortness of breath on exertion Silent aspiration TIA (transient ischemic attack) Wears dentures Wears glasses Home Medications albuterol sulfate 90 mcg/actuation aerosol inhaler 2 puff inhalation Q6H PRN PRN Sob &/Or Wheezing 10/01/19 [History Last Taken Unknown] midodrine 2.5 mg tablet 2.5 mg PO BID bp 10/01/19 [History Last Taken 12/15/21 07:15] B-complex with vitamin C 1 cap PO DAILYCM supplement 10/12/19 [History Last Taken Unknown] ascorbic acid (vitamin C) 500 mg tablet 1,000 mg PO DAILY@0800 supplement 10/12/19 [History Last Taken Unknown] vitamin E (dl, acetate) 180 mg (400 unit) capsule 400 units PO DAILYCM supplement 10/12/19 [History Last Taken Unknown] acetaminophen 500 mg tablet 1,000 mg PO Q6H PRN Pain Score 1-5/10 10/31/19 [Rx Last Taken Unknown] tamsulosin 0.4 mg capsule 0.4 mg PO BID@0830,1730 prostate #60 caps 10/31/19 [Rx Last Taken Unknown] aspirin 81 mg capsule 325 mg feeding tube DAILY heart health 12/08/21 [History Last Taken Unknown] atorvastatin 40 mg tablet 80 mg feeding tube QHS cholesterol 12/08/21 [History Last Taken Unknown] lisinopril 10 mg tablet 10 mg PO DAILY 12/08/21 [History Last Taken 12/15/21 07:15] oxycodone-acetaminophen 5 mg-325 mg tablet (Percocet) 1 tab PO Q6H PRN pain 5 days #15 tabs 02/23/22 [Rx Last Taken Unknown] oxycodone 5 mg tablet 5 mg PO Q6H PRN pain 3 days #10 tabs 04/24/22 [Rx Last Taken Unknown] doxazosin 2 mg tablet (Cardura) 2 mg feeding tube QHS Bp 05/28/22 [History Last Taken Unknown] fluticasone furoate 200 mcg-vilanterol 25 mcg/dose inhalation powder 1 inh inhalation DAILY Check with primary doctor 05/28/22 [History Last Taken Unknown] gabapentin 300 mg/6 mL (6 mL) oral solution 300 mg feeding tube TID Check with primary doctor 05/28/22 [History Last Taken Unknown] guar gum 1 tbsp feeding tube DAILY bowel mobility 05/28/22 [History Last Taken Unknown] mirtazapine 15 mg tablet 15 mg feeding tube QHS sleep/appetite 05/28/22 [History Last Taken Unknown] pantoprazole 40 mg tablet,delayed release (Protonix) 40 mg PO DAILY Check with primary doctor 05/28/22 [History Last Taken Unknown] sertraline 25 mg tablet 25 mg feeding tube DAILY depression 05/28/22 [History Last Taken Unknown] Allergy/AdvReac Type Severity Reaction Status Date / Time mold Allergy NEEDS Verified 05/08/22 17:10 FOLLOW-UP house dust AdvReac SNEEZING Verified 05/08/22 17:10 morphine AdvReac Vomiting Verified 05/08/22 17:10 poison kayleen extract AdvReac Rash Verified 05/08/22 17:10 Family History (Updated 05/29/22 @ 15:[address] Willa Mccollum DO) Mother CAD (coronary artery disease) Brother COPD (chronic obstructive pulmonary disease) Family History no significant family his Surgical History (Updated 05/29/22 @ 16:[address] Willa Mccollum DO) H/O hernia repair History of cardiac catheterization History of esophageal dilatation History of laminectomy History of tonsillectomy Hx of colonoscopy Internal carotid artery stent present S/P total knee arthroplasty Spinal cord stimulator status Status post insertion of percutaneous endoscopic gastrostomy (PEG) tube Status post total left knee replacement Ureteral stent present Social History (Updated 05/29/22 @ 18:[address] Willa Mccollum DO) household members: none housing: house number of children: 0 current occupational status: retired Smoking Status: Former smoker Smokeless tobacco user: chewing tobacco and other how long ago did patient quit smokin alcohol intake: former substance use type: does not use ROS Constitutional Constitutional: Reports weakness; Denies anorexia, change in weight, chills, fatigue, fever(s) or night sweats Eyes Eyes: Denies blurry vision, change in vision, eye pain or loss of vision ENT HEENT: Reports dysphagia; Denies abnormal hearing, headache(s), hearing loss, nasal congestion or sore throat Cardiovascular Cardiovascular: Reports dyspnea on exertion; Denies chest pain, dizziness, dyspnea at rest, edema, flutter in chest, lightheadedness, orthopnea, palpitations, paroxysmal nocturnal dyspnea or syncope Respiratory/Chest Respiratory/Chest: Reports cough, dyspnea and shortness of breath with exertion; Denies shortness of breath at rest or wheezing Gastrointestinal Gastrointestinal: Reports other Details: Has had abd distention, eructation and flatulence recently. Also tells me that he feels like he has to have a BM but, he only passes gas. ; Denies abdominal pain, constipation, diarrhea, dyspepsia, hematemesis, hematochezia, nausea or vomiting Genitourinary Genitourinary: Reports other Details: He currently has a Zapata catheter that was present at admission to rehab. It was left in after recent L ureteral stent p lacement at [facility]. ; Denies dysuria, hematuria, nocturia, urinary frequency, urinary hesitancy, uri nary incontinence or urinary urgency Musculoskeletal Musculoskeletal: Reports neck pain and other Details: Feels as though he can not extend his neck completely ; Denies back pain, joint pain or joint swelling Neurologic Neurologic: Reports other Details: some trouble finding the right word to say at times. ; Denies confusion, disequilibrium, dizziness, focal weakness, headache(s), paresthesias, radicular pain, seizures or tremor(s) Psychiatric Psychiatric: Reports cognitive impairment and depression; Denies anxiety, homicidal ideation, irritability, mood swings, panic attacks or suicidal ideation Endocrine Endocrinology: Denies change in body appearance, polydipsia or polyuria Hematologic/Lymphatic Hematologic/Lymphatic: Denies easy bleeding, easy bruising or lymphadenopathy Allergic/Immunologic Allergic/Immunologic: Denies rhinitis, eczemia or asthma Physical Exam Const alert, oriented x3 and no apparent distress Constitutional Narrative: Sitting in the recliner at the bedside. Looks comfortable. He is not always cooperative with therapy........he only does what he wants to do at times. He is pleasant and he wants to go home at [place] and live by himself. General Appearance: well kempt and frail; Negative for anxious or combative Resp Resp Narrative: Diminished but CTA, no tachypnea, no accessory muscle use and no conversational dyspnea. Not coughing. Cardio Cardio Narrative: no gallops GI GI Narrative: Soft with hypoactive bowel sounds. Replacement 20 [place] PEG tube in place no CVA tenderness Extremity Extremity Narrative: no edema and no calf tenderness. He has an implanted stimulator for pain control in his back and legs but, he has not been able to use it because the battery needs charged. Jesse will bring the ring stamper and the remote in so we can charge the remote this will help with pain control. Medical Records Data Medical Nutrition Assessment Dietitian: Malnutrition Criteria Met Start: 05/28/22 15:25 Freq: Status: Active Protocol: Document 05/31/22 09:33 RMA (Rec: 05/31/22 09:33 RMA [id number]) Nutrition Malnutrition Evidence of Malnutrition Exists Yes Malnutrition (severe): Chronic Evidenced By Suboptimal Energy Intake ( Severe),Weight Loss (Severe), Physical Changes (Severe) Clinical Problem Chronic Disease or Condition Related Malnutrition Etiology chronic, severe malnutrition related to inadequate energy intake d/t swallowing difficulties Signs/Symptoms as evidenced by estimated PO intake meeting <75% of estimated energy needs >3 months; unintentional wt loss of ~20.8#/13% x ~6 months; obvious, severe muscle wasting fat loss evident in orbital, clavicle, acromion, and temporal areas per physical exam; BMI 19.6 Status Active Problem Recommendation Dietitian Recommendations/Changes NPO per TRAINING ASSOCIATE until PO nutrition indicated; TF to meet ~100% estimated nutrition needs. Continue enteral nutrition support at goal Via PEG with Jevity 1.5 bolus feeds at goal of 265mL 5x/day with 100mL H2O flush before and after each bolus to provide 1988 calories, 84.5 g protein, and 2007mL total fluid/day. Will add daily weights to better assess estimated nutrition needs for repletion; change to weekly as weight pattern established. Lab / Micro Data Result Diagrams: 05/29/22 05:00 05/29/22 05:00 Micro: Microbiology 05/30/22 05:31 Urine Catheter - Zapata Urine Culture - Final Culture exhibits no growth. Charges/Coding Visit Charges Inpatient E&M: 15378 Init Hosp L3
[2022-06-01] MEDS: Simethicone 40MG/0.6ML Bottle 80 MG GT ×2 (17:41→23:28)
--- NOTE | 2022-06-01 19:08 | NURSING ---
assisted pt with performing his own Peg bolus. Pt had difficulty with hand dexterity trying to hold the tube and remove the top. pt needs continued teaching and practice. Pt understands what needs to be done but does not have confidence he can perform on his own and feels his hands shake to much.
[2022-06-01 19:45] VITALS: BP 120/70; PULSE 75; RESP 16; TEMP 36.8; O2SAT 94
[2022-06-01] MEDS: Nystatin/Triamcin Cream Tube 1 APPLIC TOPICAL (21:43)
[2022-06-01] MEDS: Mirtazapine 15 MG Tablet GT (21:43)
[2022-06-01] MEDS: Doxazosin 1 MG Tablet 2 MG GT (21:44)
[2022-06-01] MEDS: Atorvastatin Calcium 80 MG Tablet GT (21:44)
[2022-06-01] MEDS: SMZ/TPM Suspension 20 ML GT (22:34)
[2022-06-02] VITALS (12 sets, daily range): BP systolic 67–146; BP diastolic 40–84; PULSE 64–89; RESP 16–17; TEMP 20.5–36.7; O2SAT 95–98; BMI 19.5
--- NOTE | 2022-06-02 02:39 | NURSING ---
Reviewed and agree with Patricia Brugos LPN documentation and assessment charting.
[2022-06-02] MEDS: 0.9% Saline Lock 10 ML Syringe IV ×2 (05:16→10:57)
[2022-06-02] MEDS: levoFLOXacin IV 500 MG/100 ML BAG 100 MG IV (05:18)
[2022-06-02 05:40] LABS: Absolute Lymphocyte Count 0.62 X10^3/uL (0.83-4.51); Absolute Neutrophil Count 6.4 X10^3/uL (2.0-7.7); Basophil# 0.05 X10^3/uL; Basophil% 0.6 % (0-1); Eosinophil# 0.51 X10^3/uL; Hematocrit 25.6 % (40-54); Hemoglobin 7.8 g/dL (13.0-16.5); Lymphocyte # 0.62 X10^3/ul (0.83-4.51); Lymphocyte % 7.4 % (19-41); Mean Corp Hgb Conc 30.5 g/dL (32-36); Mean Corpuscular Hgb 28.4 pg (27.0-32.0); Mean Corpuscular Volume 93.1 fL (80-94); Mean Platelet Vol. 10.4 fl (6.2-12.0); Monocyte# 0.73 X10^3/uL; Monocyte% 8.7 % (0-10); NRBC Flagged by Analyzer 0 % (0-5); Neutrophil # 6.43 X10^3/uL (2.7-7.7); Neutrophil % 76.2 % (47-70); Platelet Count 391 K/mm3 (150-450); RBC Distribution Width CV 15.9 % (11.6-14.6); RBC Distribution Width SD 53.2 fl (35.1-43.9); Red Blood Count 2.75 M/mm3 (4.6-6.2); White Blood Count 8.4 K/mm3 (4.4-11.0)
[2022-06-02 05:55] LABS: Anion Gap 6 (5-15); BUN 37 mg/dL (7-18); BUN/Creat Ratio 19.3 RATIO (10-20); Chloride 103 mmol/L (98-107); Creatinine, Serum 1.92 mg/dL (0.70-1.30); EST Glomerular Filtration Rate 36 mL/min (>60); Est Glom Filt Rate - Afr Amer 44 mL/min (>60); Estimated Creatinine Clearance 28.37 ml/min; Glucose 100 mg/dL (74-106); Magnesium 2.5 mg/dL (1.6-2.6); Potassium 5.7 mmol/L (3.5-5.1); Sodium Level 138 mmol/L (136-145)
--- NOTE | 2022-06-02 05:55 | EKG12_ITS ---
Test Reason : PRE-OP Blood Pressure : / mmHG Vent. Rate : 074 BPM Atrial Rate : 074 BPM P-R Int : 182 ms QRS Dur : 140 ms QT Int : 434 ms P-R-T Axes : 040 -78 031 degrees QTc Int : 481 ms Normal sinus rhythm Left axis deviation Right bundle branch block Abnormal ECG Confirmed by ERIC ALLEN, SARA ([id number]), television news video editor MABEL MALAGON ([id number]) on 06/03/2022 11:16:45 AM Referred By: LYDIA Confirmed By:SARA REYES MD
[2022-06-02 05:56] LABS: Albumin, Serum 2.4 g/dL (3.2-5.0)
[2022-06-02 06:02] LABS: Phosphorus 5.5 mg/dL (2.5-4.9)
[2022-06-02] MEDS: Midodrine HCl 5 MG Tablet GT ×2 (06:30→15:30)
[2022-06-02] MEDS: Gabapentin 300 MG Capsule GT ×3 (06:30→22:00)
[2022-06-02] MEDS: Nystatin/Triamcin Cream Tube 1 APPLIC TOPICAL ×2 (06:30→21:41)
[2022-06-02] MEDS: Simethicone 40MG/0.6ML Bottle 80 MG GT ×3 (06:31→17:58)
--- NOTE | 2022-06-02 07:22 | RAD_ITS ---
INDICATION: pre-operative EXAMINATION/TECHNIQUE: X-RAY - XR Chest 2 Views COMPARISON: 05/08/2022. FINDINGS: LINES/DEVICES: Spinal cord stimulator leads visualized superimposed over the mid to lower thoracic spine.. LUNGS: Peribronchial cuffing bilateral hilar prominence is seen that demonstrates no change. No evidence of focal lung infiltrate or consolidation. Mild blunting of the left costophrenic angle is seen, the right costophrenic angle is unremarkable with no evidence of right pleural effusion. Biapical prominence demonstrates no change. MEDIASTINUM AND CARDIOVASCULAR STRUCTURES: Cardiac silhouette not enlarged. BONES AND SOFT TISSUES: Unremarkable. RAD/Chest PA and Lateral IMPRESSION: Spinal cord stimulator leads visualized superimposed over the mid to lower thoracic spine.. No radiographic evidence of acute cardiopulmonary disease. Electronically Signed: Pablito Cornell MD at 8:37 EDT ,
--- NOTE | 2022-06-02 09:58 | PN_ITS ---
Subjective Subjective Day #2 Bactrim Afebrile VSS -blood pressure lying down was 113/62, sitting up was 97/49 and standing was 67/40. Pulse lying down was 72 and increased to 89 with standing. Maintaining appropriate oxygen saturation on RA Intake is per PEG, except for comfort foods. Discussed with nursing - no problems that need addressed Reviewed the PT/OT/ST notes Medication list reviewed. Alex was seen by Dr. Ruggiero last evening and I reviewed his consult. Alex is scheduled to have the PEG replaced today. He recommends starting Simethicone.....this was done yesterday prior to the consult.....and increasing fluids. Alex has been chronically constipated due to poor oral intake related to esophageal stenosis. All lab done today was personally reviewed. Hemoglobin is stable at 7.8. White blood cell count is normal and the platelets are also within normal limits. Potassium is elevated at 5.7 today. BUN is elevated at 37 and the creatinine is 1.92. Phosphorus is elevated at 5.5 and the magnesium is normal. Calcium corrected for hypoalbuminemia is mildly elevated at 10.28. Alex denies CP, SOB at rest, cough, dysuria, nausea, abd pain. He has feels wobbly when he is standing but is asymptomatic sitting in a chair. Cramping in the abdomen is much better and there is less distension. Denies pain in the genital area today. Objective Data Objective Data Vital Signs: Vital Signs Temp Pulse Resp BP Pulse Ox O2 Del Method 97.2 F L 77 16 122/64 H 95 Room Air 06/02/22 07:30 06/02/22 07:30 06/02/22 07:30 06/02/22 07:30 06/02/22 07:30 06/02/22 07:30 Oxygen Delivery Method Room Air Weight: 141 lb 8.588 oz Body Mass Index (BMI) 19.5 Intake & Output: Intake and Output for Last 24 Hours 05/31/22 06/01/22 06/02/22 23:59 23:59 23:59 Intake Total 1994 / 1959 100 / 100 Output Total 1500 / 1500 1200 / 1200 0 / 0 Balance 495 / 495 760 / 760 100 / 100 Medical Nutrition Assessment Dietitian: Malnutrition Criteria Met Start: 05/28/22 15:25 Freq: Status: Active Protocol: Document 05/31/22 09:33 RMA (Rec: 05/31/22 09:33 RMA [id number]) Nutrition Malnutrition Evidence of Malnutrition Exists Yes Malnutrition (severe): Chronic Evidenced By Suboptimal Energy Intake ( Severe),Weight Loss (Severe), Physical Changes (Severe) Clinical Problem Chronic Disease or Condition Related Malnutrition Etiology chronic, severe malnutrition related to inadequate energy intake d/t swallowing difficulties Signs/Symptoms as evidenced by estimated PO intake meeting <75% of estimated energy needs >3 months; unintentional wt loss of ~20.8#/13% x ~6 months; obvious, severe muscle wasting fat loss evident in orbital, clavicle, acromion, and temporal areas per physical exam; BMI 19.6 Status Active Problem Recommendation Dietitian Recommendations/Changes NPO per [employer] until PO nutrition indicated; TF to meet ~100% estimated nutrition needs. Continue enteral nutrition support at goal Via PEG with Jevity 1.5 bolus feeds at goal of 265mL 5x/day with 100mL H2O flush before and after each bolus to provide 1988 calories, 84.5 g protein, and 2007mL total fluid/day. Will add daily weights to better assess estimated nutrition needs for repletion; change to weekly as weight pattern established. Lab / Micro Data Result Diagrams: 06/02/22 05:29 06/02/22 05:29 Labs: Laboratory Results - last 24 hr 06/02/22 05:29: WBC 8.4, RBC 2.75 L, Hgb 7.8 L, Hct 25.6 L, MCV 93.1, MCH 28.4, MCHC 30.5 L, RDW Std Deviation 53.2 H, RDW Coeff of Gustabo 15.9 H, Plt Count 391, MPV 10.4, Immature Gran % (Auto) 1.100 H, Neut % (Auto) 76.2 H, Lymph % (Auto) 7.4 L, Dupage % (Auto) 8.7, Eos % (Auto) 6.0 H, Baso % (Auto) 0.6, Absolute Neuts (auto) 6.4, Absolute Lymphs (auto) 0.62 L, Nucleated RBC % 0 06/02/22 05:29: Sodium 138, Potassium 5.7 H, Chloride 103, Carbon Dioxide 29.0, Anion Gap 6, BUN 37 H, Creatinine 1.92 H, Estim Creat Clear Calc 28.37, Est GFR (MDRD) Af Amer 44 L, Est GFR (MDRD) Non-Af 36 L, BUN/Creatinine Ratio 19.3, Glucose 100, Calcium 9.0, Magnesium 2.5 06/02/22 05:29: Phosphorus 5.5 H 06/02/22 05:29: Albumin 2.4 L 06/02/22 08:08: Blood Type O POSITIVE, Antibody Screen NEGATIVE Micro: Microbiology 05/30/22 05:31 Urine Catheter - [place] Urine Culture - Final Culture exhibits no growth. Radiography Diagnostic Testing: Radiology Impression Chest X-Ray 06/02/22 07:22 IMPRESSION: Spinal cord stimulator leads visualized superimposed over the mid to lower thoracic spine.. No radiographic evidence of acute cardiopulmonary disease. Electronically Signed: Pablito Cornell MD at 8:37 EDT , Physical Exam Const alert and no apparent distress General Appearance: cooperative HEENT Mouth: dry mucous membranes Resp Resp Narrative: Normal respiratory effort at rest. Not coughing. Not tachypneic. No conversational dyspnea. Few scattered crackles but, no wheezing or rhonchi. Cardio regular rate, regular rhythm and no gallops GI GI Narrative: Soft, no guarding with palpation, less distended, BS's present. Narrative: The foreskin is still edematous but, less so than yesterday. No erythema today and he had no pain with palpation today. Extremity no calf tenderness Extremity Narrative: distal extremities are cool to touch and fingertips are mildly cyanotic and I suspect this is due to dehydration. General Extremity: Negative for edema Skin General Skin Exam: no breakdown Rashes: no rashes Assessment & Plan Assessment/Plan (1) Debility: (2) Acute cerebrovascular accident (CVA) due to ischemia: (3) Hyperkalemia: PLAN: Kayexalate 60 g per PEG now (4) Hyperphosphatemia associated with renal failure: PLAN: Recheck in the a.m. following hydration. I suspect the kidney function will improve with hydration. (5) Dehydration: PLAN: 500 cc bolus of normal saline followed by normal saline at 125 cc/h X (6) Acute pseudo-obstruction of colon: (7) Cellulitis: PLAN: Continue Bactrim (8) Normochromic normocytic anemia: (9) Presence of externally removable percutaneous endoscopic gastrostomy (PEG) tube: (10) Orthostatic hypotension: (11) Urinary retention: (12) BPH (benign prostatic hypertrophy): QUALIFIERS: Qualified Code(s): R39.12 - Poor urinary stream PLAN: I do not know if the urine retention is due to BPH (if it is due to this the Doxazosin in not effective), stroke or Neurogenic bladder due to hx of lumbar fusion with peuropathic pain and numbness of the LE's OR to a combination of the above. He is agreeable to learning how to self cath. PLAN: Plan 1. NS 500 cc over 1 hour then run at 125 cc/hr. 2. Kayexalate 60 GM per PEG now. 3. Calcium will come down with hydration and I suspect the Phos and the K will also. 4. Bladder scan Q 4H from 0600 to 2200 and straight cath if > 250. 5. Start teaching the patient how to self cath. The urine retention may not be totally due to BPH......It may be related to the stroke OR to his low back problems that are bad enough for him to need a stimulator implanted. Will need to follow up with urology following DC from Rehab. If he is going to need to self cath then he will not need to be on doxazosin and we may be able to avoid using Midodrine if this is the case. 6. Nursing tells me that he was very shaking trying to do the Peg feeding yesterday and he required a lot of assistance. He has many medical problems and he may be approaching the time when he needs to start thinking about assisted living if he can not self cath and manage his PEG feedings. 7. Continue therapy to strengthen. 8. Recheck a CBC and a BMP and phos in the AM. 9. Check orthostatics in the AM 10. Constipation could also be neurogenic.......will continue to monitor closely with increase in fluids....he may need to have a suppository to stimulate BM. 11. Type and screen for PRBC's Charges/Coding Visit Charges Inpatient E&M: 96124 Subs Hosp L3
[2022-06-02] MEDS: Fluticasone/Salmeterol 232-14 Inhaler 1 PUFF INHALATION ×2 (10:56→21:42)
[2022-06-02] MEDS: Arthritis Pain Compound 60 CLICK TUBE TOPICAL ×2 (10:56→21:39)
[2022-06-02] MEDS: 0.9% Normal Saline 1,000 ML 500 ML IV (10:57)
[2022-06-02] MEDS: Pantoprazole Sodium 40 MG Tablet PO (11:03)
[2022-06-02] MEDS: Sertraline 50 MG Tablet 25 MG GT (11:03)
[2022-06-02] MEDS: SMZ/TPM Suspension 10 ML GT ×2 (11:04→21:55)
[2022-06-02] MEDS: Menthol/Lanolin/Calamine/Znox 113 GM Tube 1 APPLIC TOPICAL ×2 (11:05→22:03)
[2022-06-02] MEDS: Nystatin Powder 15gm Bottle 1 APPLIC TOPICAL ×2 (11:05→22:02)
[2022-06-02 11:46] LABS: Ferritin 133 ng/mL (26-388); Iron 37 ug/dL (65-175); Iron Binding Capacity,Total 293 ug/dL (250-450); PERCENT IRON SATURATION 12.6 % (15.0-55.0)
--- NOTE | 2022-06-02 13:00 | NURSING ---
Patient went down to surgery, POA who is the neighbor is present in the room. Report given to nurse.
--- NOTE | 2022-06-02 14:12 | OP.CCLET_ITS ---
06/02/2022 Anderson Crowley Re : Upper GI endoscopy procedure for Alex Eaton Dear Keo This procedure was performed on Thursday, June 02, 2022. My impressions and recommendations are as follows: Impressions : - The nasopharynx and oropharynx are abnormal. - Benign-appearing esophageal stenosis. Dilated. - Normal upper third of esophagus, middle third of esophagus and lower third of esophagus. - Intact gastrostomy with a patent G-tube present characterized by healthy appearing mucosa. - Normal first portion of the duodenum. - The PEG was removed percutaneously because it was broken. - An endoscopically removable PEG placement was successfully completed. - No specimens collected. Recommendations : - Discharge patient to home. - Resume previous diet. - Continue present medications. My findings are described in the full procedure note, which is enclosed. If I can be of further assistance, please feel free to contact me at . Sincerely, Trevor Ruggiero, 06/02/2022 2:11:48 PM This report has been signed electronically.
--- NOTE | 2022-06-02 14:12 | OP.EGD_ITS ---
Patient Name: Alex Eaton Procedure Date: 06/02/2022 1:35 PM Date of : 1940 Age: 81 Procedure: Upper GI endoscopy Indications: Dysphagia Providers: Trevor Ruggiero DO Medicines: Monitored Anesthesia Care Patient Profile: This is a 81 year old male. Refer to note in patient chart for documentation of history and physical. Patient has symptoms of dysphagia with both liquids and solids. Complications: No immediate complications. Procedure: Pre-Anesthesia Assessment: - Prior to the procedure, a History and Physical was performed, and patient medications and allergies were reviewed. The patient is competent. The risks and benefits of the procedure and the sedation options and risks were discussed with the patient. All questions were answered and informed consent was obtained. Patient identification and proposed procedure were verified by the physician in the pre-procedure area. Mental Status Examination: alert and oriented. Airway Examination: normal oropharyngeal airway and neck mobility. Respiratory Examination: clear to auscultation. CV Examination: normal. Prophylactic Antibiotics: The patient does not require prophylactic antibiotics. Prior Anticoagulants: The patient has taken no previous anticoagulant or antiplatelet agents. ASA Grade Assessment: II - A patient with mild systemic disease. After reviewing the risks and benefits, the patient was deemed in satisfactory condition to undergo the procedure. The anesthesia plan was to use monitored anesthesia care (MAC). Immediately prior to administration of medications, the patient was re-assessed for adequacy to receive sedatives. The heart rate, respiratory rate, oxygen saturations, blood pressure, adequacy of pulmonary ventilation, and response to care were monitored throughout the procedure. The physical status of the patient was re-assessed after the procedure. After obtaining informed consent, the endoscope was passed under direct vision. Throughout the procedure, the patient's blood pressure, pulse, and oxygen saturations were monitored continuously. The gastroscope was introduced through the mouth, and advanced to the second part of duodenum. The upper GI endoscopy was accomplished without difficulty. The patient tolerated the procedure well. Scope In: 1:49:59 PM Scope Out: 2:00:27 PM Total Procedure Duration Time 0 hours 10 minutes 28 seconds Findings: The nasopharynx and oropharynx are abnormal. 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 There was also bleeding stigmata seen in the oropharynx. This was not treated endoscopically. One benign-appearing, intrinsic stenosis was found 18 to 19 cm from the incisors. This stenosis was severe and measured 2 mm (inner diameter) x 2 cm (in length). The stenosis was traversed after dilation. A guidewire was placed and the scope was withdrawn. Dilation was performed with a Savary dilator with no resistance at 30 Fr. The dilation site was examined following endoscope reinsertion and showed complete resolution of luminal narrowing. Estimated blood loss was minimal. The upper third of the esophagus, middle third of the esophagus and lower third of the esophagus were normal. There was evidence of an intact gastrostomy with a patent G-tube present on the greater curvature of the stomach. This was characterized by healthy appearing mucosa. The PEG required removal because it was broken. The PEG was removed percutaneously. Removal was easily accomplished. Placement of an endoscopically removable PEG with 1 T-fastener was successfully completed. The external bumper was at the 4.0 cm marking on the tube. Estimated blood loss was minimal. The first portion of the duodenum was normal. Impression: - The nasopharynx and oropharynx are abnormal. - Benign-appearing esophageal stenosis. Dilated. - Normal upper third of esophagus, middle third of esophagus and lower third of esophagus. - Intact gastrostomy with a patent G-tube present characterized by healthy appearing mucosa. - Normal first portion of the duodenum. - The PEG was removed percutaneously because it was broken. - An endoscopically removable PEG placement was successfully completed. - No specimens collected. Recommendation: - Discharge patient to home. - Resume previous diet. - Continue present medications. Procedure Code(s): --- Professional --- 03054, Esophagogastroduodenoscopy, flexible, transoral; with directed placement of percutaneous gastrostomy tube 57116, Esophagogastroduodenoscopy, flexible, transoral; with insertion of guide wire followed by passage of dilator(s) through esophagus over guide wire CPT copyright 2017 [employer]. All rights reserved. The codes documented in this report are preliminary and upon resources representative review may be revised to meet current compliance requirements. Trevor Ruggiero DO 06/02/2022 2:11:48 PM This report has been signed electronically. Number of Addenda: 0 Note Initiated On: 06/02/2022 1:35 PM
[2022-06-02] MEDS: Jevity 1.5. 1,000 ML Bottle 265 ML GT ×3 (15:30→21:56)
--- NOTE | 2022-06-02 15:45 | NURSING ---
Patient returned from surgery in good spirits but a little groggy and tired. VS WNL. Peg tube site looks WNL.
[2022-06-02] MEDS: Sodium Polystyrene Sulfonate 15 GM/60 ML UDC 30 GM PO (17:45)
[2022-06-02] MEDS: 0.9% Normal Saline 1,000 ML 125 ML IV (17:58)
--- NOTE | 2022-06-02 18:37 | NURSING ---
Patient unable to attempt to self cath or do tube feedings today due to feeling groggy post op.
[2022-06-02] MEDS: Doxazosin 1 MG Tablet 2 MG GT (21:42)
[2022-06-02] MEDS: Atorvastatin Calcium 80 MG Tablet GT (21:42)
[2022-06-02] MEDS: Mirtazapine 15 MG Tablet GT (21:42)
[2022-06-02] MEDS: Zolpidem Tartrate 5 MG Tablet PO (22:04)
--- NOTE | 2022-06-02 23:11 | NURSING ---
Bladder scanned for 493 and straight cathed for 525mL. Pt groggy and unable to perform task. RN explained steps as procedure performed by RN.
[2022-06-03] MEDS: Simethicone 40MG/0.6ML Bottle 80 MG GT ×5 (00:57→23:42)
[2022-06-03] MEDS: 0.9% Normal Saline 1,000 ML 125 ML IV (02:16)
[2022-06-03 05:43] LABS: Hemoglobin 7.7 g/dL (13.0-16.5); Mean Corp Hgb Conc 29.6 g/dL (32-36); Mean Corpuscular Hgb 28.1 pg (27.0-32.0); Mean Corpuscular Volume 94.9 fL (80-94); Mean Platelet Vol. 10.6 fl (6.2-12.0); Platelet Count 368 K/mm3 (150-450); RBC Distribution Width SD 54.7 fl (35.1-43.9); Red Blood Count 2.74 M/mm3 (4.6-6.2); White Blood Count 6.9 K/mm3 (4.4-11.0)
[2022-06-03] MEDS: Nystatin/Triamcin Cream Tube 1 APPLIC TOPICAL ×2 (06:03→21:57)
[2022-06-03] MEDS: Midodrine HCl 5 MG Tablet GT ×2 (06:04→14:51)
[2022-06-03] MEDS: Jevity 1.5. 1,000 ML Bottle 265 ML GT ×2 (06:08→10:12)
[2022-06-03] MEDS: Gabapentin 300 MG Capsule GT ×3 (06:08→22:01)
[2022-06-03 06:09] LABS: Anion Gap 8 (5-15); BUN 30 mg/dL (7-18); BUN/Creat Ratio 14.8 RATIO (10-20); Calcium,Total 8.3 mg/dL (8.5-10.1); Chloride 107 mmol/L (98-107); Creatinine, Serum 2.03 mg/dL (0.70-1.30); EST Glomerular Filtration Rate 34 mL/min (>60); Est Glom Filt Rate - Afr Amer 41 mL/min (>60); Estimated Creatinine Clearance 26.79 ml/min; Glucose 89 mg/dL (74-106); Potassium 5.7 mmol/L (3.5-5.1); Sodium Level 140 mmol/L (136-145)
[2022-06-03 07:46] VITALS: BP 132/68; PULSE 69; RESP 16; TEMP 36.7; O2SAT 95
[2022-06-03] MEDS: Arthritis Pain Compound 60 CLICK TUBE TOPICAL ×2 (08:17→21:55)
[2022-06-03] MEDS: Menthol/Lanolin/Calamine/Znox 113 GM Tube 1 APPLIC TOPICAL ×2 (08:18→21:55)
[2022-06-03] MEDS: Nystatin Powder 15gm Bottle 1 APPLIC TOPICAL ×2 (08:18→21:56)
[2022-06-03] MEDS: Sertraline 50 MG Tablet 25 MG GT (10:06)
[2022-06-03] MEDS: Fluticasone/Salmeterol 232-14 Inhaler 1 PUFF INHALATION ×2 (10:06→21:55)
[2022-06-03] MEDS: SMZ/TPM Suspension 10 ML GT (10:07)
[2022-06-03] MEDS: Pantoprazole Sodium 40 MG Tablet PO (10:08)
--- NOTE | 2022-06-03 11:18 | NURSING ---
Notified Dr. Mccollum of pt c/o pain 04/22 of back, received order for oxycodone 5-10 q4hr PRN. Order repeated back.
[2022-06-03] MEDS: oxyCODONE 5 MG Tablet PO ×2 (12:08→22:00)
--- NOTE | 2022-06-03 12:57 | PN_ITS ---
Progress Note Day #3/7 Bactrim Afebrile VSS - still orthostatic today but better. The systolic was 89 with standing and he denies lightheadedness. Maintaining appropriate oxygen saturation on RA Balance yesterday was +2418. He is +1700 today so far. Still retaining urine and requiring catheterization intermittently. Discussed with nursing - no problems that need addressed Reviewed the PT/OT/ST notes Medication list reviewed. Jose Daniel has been c/o back pain today, 04/22. His spinal stimulator was brought in yesterday and it is currently charging. He was able to do therapy today. Oxycodone was added to the drug regimen and has been effective.......it does make him sleepy. I reviewed Dr. Alcantar op note from yesterday. He dilated the esophagus for benign appearing esophageal stenosis. Gastric mucosa appeared healthy. First portion of the duodenum was normal. The PEG was replaced. All lab was personally reviewed. Hemoglobin is stable at 7.7. The white blood cell count is within normal limits. Platelets are normal. the potassium is still 7 today. Serum bicarb is 25. The percent iron saturation is only 12.6% which is low. Serum iron is also low. Phosphorus today is 5.0, down from 5.5 yesterday BUN/creatinine ratio is down to 14.8 from 19.3 yesterday. Jose Daniel denies chest pain, palpitations, calf pain, abdominal pain. Abdomen is still mildly distended but soft. He has chronic shortness of breath and there is been no change since yesterday. Denies nausea. He is tolerating his tube feed with no significant residuals. Physical Exam Const alert and no apparent distress Constitutional Narrative: Denies wobbliness with standing today. MM are dry. General Appearance: cooperative Resp Resp Narrative: diminished but, CTA. Has been using the IS regularly. Cardio Cardio Narrative: RRR, no gallop and no rub. GI GI Narrative: A little more distended than yesterday but, still soft and NT. BS's are present in all quadrants. He tells me that he had a small BM today. Penis: uncircumcised, edematous and other Glans appears normal. ; Negative for erythema, nodule, papules, pustules, vesicles or ulceration Skin Skin Narrative: No rashes. Denies pruritus. No skin breakdown Psych Psych Narrative: Pleasant, good attitude, cooperative, thought process is grossly normal, makes good eye contact. Assessment & Plan Assessment/Plan (1) Dehydration: (2) Hypertension: (3) Acute cerebrovascular accident (CVA) due to ischemia: (4) Acute on chronic blood loss anemia: (5) Ureteral stent present: (6) Presence of externally removable percutaneous endoscopic gastrostomy (PEG) tube: (7) Cellulitis: (8) Hyperphosphatemia associated with renal failure: (9) Hyperkalemia: (10) Acute pseudo-obstruction of colon: (11) Orthostatic hypotension: (12) Urinary retention: (13) Iron deficiency anemia: (14) Microscopic hematuria: (15) Acute on chronic renal failure: PLAN: Plan 1. Start iron sucrose and give a test dose of 100 mg IV today. 2. DC IV fluids and increase the fluid flushes to 200 cc every 4 hours. 3. Check a urine sodium and creatinine and calculate the fractional excretion of sodium. 4. DC Bactrim. The erythema of the foreskin has resolved and it is no longer painful. We will continue to monitor and if symptoms recur we will likely use doxycycline. Urine culture was negative at admission. Bactrim may be contributing to the RF and the hyperkalemia. 5. Continue to straight cath every 6 hours. He was able to void some urine th is morning so we will continue post void residuals. 6. Recheck a BMP and phosphorus in the a.m. 7. I spoke with the dietitian and she is going to change his tube feed to Nepro to decrease the potassium load. 8. Try Dulcolax suppository today to see if we can stimulate a bowel movement. 9. Increase the water flushes so that he is getting 3 L a day. 10. Recheck the orthostatics in the AM. 11. Continue therapy/continue teaching for self cath and PEG tube management. 12. Start the spinal stimulator when the battery is charged to assist with pain control. 13. If the creat increases again tomorrow with get a renal US.......he just had a stent placed in the left ureter of hydronephrosis due to a stone at the UPJ. He has additional stones in the L kidney. 14. Give Kayexalate today Visit Charges Inpatient E&M: 56364 Subs Hosp L3
[2022-06-03] MEDS: NEPRO TUBE FEED 1,000 ML LIQUID 225 ML GT ×3 (14:51→22:02)
[2022-06-03] MEDS: Sodium Bicarbonate 8.4% 50 ML Syringe 50 MEQ IV (15:01)
[2022-06-03 15:33] VITALS: BMI 19.5
[2022-06-03] MEDS: Sodium Polystyrene Sulfonate 15 GM/60 ML UDC 30 GM PO (16:01)
[2022-06-03 18:35] LABS: Urine Sodium 132 mmol/L (Not Establ.)
[2022-06-03 19:53] VITALS: BP 137/73; PULSE 91; RESP 16; TEMP 36.9; O2SAT 95
[2022-06-03 20:46] LABS: Potassium 4.8 mmol/L (3.5-5.1)
[2022-06-03 22:00] VITALS: O2SAT 97
[2022-06-03] MEDS: Doxazosin 1 MG Tablet 2 MG GT (22:01)
[2022-06-03] MEDS: Atorvastatin Calcium 80 MG Tablet GT (22:01)
[2022-06-03] MEDS: Mirtazapine 15 MG Tablet GT (22:01)
--- NOTE | 2022-06-03 22:05 | NURSING ---
Pt c\o feeling bloated this evening, very hesitant about taking tube feeding. Residual is 40ml. Pt decided to take 150ml of Nepro Carb. Able to assist this nurse with holding syringe and able to unlock tube when done with flush. Will continue to encourage self care.
[2022-06-04] MEDS: Gabapentin 300 MG Capsule GT ×3 (05:35→22:33)
[2022-06-04] MEDS: Midodrine HCl 5 MG Tablet GT ×2 (05:35→15:54)
[2022-06-04] MEDS: Simethicone 40MG/0.6ML Bottle 80 MG GT ×3 (05:35→17:48)
[2022-06-04] MEDS: Nystatin/Triamcin Cream Tube 1 APPLIC TOPICAL ×2 (05:38→22:35)
[2022-06-04] MEDS: NEPRO TUBE FEED 1,000 ML LIQUID 225 ML GT ×5 (05:39→22:34)
--- NOTE | 2022-06-04 05:45 | NURSING ---
Residual 0ml this am, pt tolerated feeing well, denies bloating this am. Pt assisted small amount with feeding. Refused to help this am with straight cath or attempt, pt states I'm not ready for that yet.
[2022-06-04 06:15] VITALS: BP 104/70; BP 142/82; BP 77/45; PULSE 75; PULSE 82; PULSE 96
[2022-06-04 06:33] LABS: Anion Gap 6 (5-15); BUN 26 mg/dL (7-18); BUN/Creat Ratio 13.8 RATIO (10-20); Calcium,Total 8.5 mg/dL (8.5-10.1); Chloride 108 mmol/L (98-107); Creatinine, Serum 1.88 mg/dL (0.70-1.30); EST Glomerular Filtration Rate 37 mL/min (>60); Est Glom Filt Rate - Afr Amer 45 mL/min (>60); Estimated Creatinine Clearance 28.71 ml/min; Glucose 95 mg/dL (74-106); Phosphorus 4.5 mg/dL (2.5-4.9); Potassium 4.7 mmol/L (3.5-5.1); Sodium Level 141 mmol/L (136-145)
[2022-06-04] MEDS: 0.9% Saline Lock 10 ML Syringe IV ×2 (06:42→22:41)
[2022-06-04 08:04] VITALS: BP 142/82; PULSE 75; RESP 16; TEMP 36.8; O2SAT 95
[2022-06-04] MEDS: Aspirin 81 MG TAB.CHEW 324 MG GT (09:58)
[2022-06-04] MEDS: Fluticasone/Salmeterol 232-14 Inhaler 1 PUFF INHALATION ×2 (09:58→22:35)
[2022-06-04] MEDS: Sertraline 50 MG Tablet 25 MG GT (09:58)
[2022-06-04] MEDS: Pantoprazole Sodium 40 MG Tablet PO (09:58)
[2022-06-04] MEDS: Arthritis Pain Compound 60 CLICK TUBE TOPICAL ×2 (09:58→22:36)
[2022-06-04] MEDS: Nystatin Powder 15gm Bottle 1 APPLIC TOPICAL ×2 (10:24→22:35)
[2022-06-04] MEDS: Menthol/Lanolin/Calamine/Znox 113 GM Tube 1 APPLIC TOPICAL ×2 (10:24→22:36)
--- NOTE | 2022-06-04 10:34 | PN_ITS ---
Subjective Subjective Afebrile Vital signs stable Maintaining appropriate oxygen saturation on room air Tolerating tube feed with no residuals Fluid balance on 06/03/2022 was +2550. Balance so far today is positive to 10. Good urine output. Pulse lying down was 75 and pulse standing up went up to 96. Blood pressure lying down was 142/82, sitting was 104/70 and standing was 77/45. Still retaining urine. He is occasionally able to urinate but there is still residual. Stool is loose and the nursing notes state he has diarrhea but, he had only 1 BM recorded yesterday? Weight today is 142 pounds and 7 ounces. Up 2 pounds from yesterday. Weight at admission to the rehab unit was 144 pounds and 3 ounces. PT/OT/ST notes were reviewed. Discussed last evening with the nurse and no adverse problems. The potassium dropped to 4.7 last evening after Kayexalate and bicarb. All lab from today was personally reviewed. Sodium is within normal limits today and the potassium is 4.7. Serum bicarb is 27. The BUN is down to 26 and the creatinine is 1.88, down from 2.03 yesterday. Phosphorus is normal at 4.5 today. Fractional excretion of sodium is 5.3% yesterday which is not consistent with dehydration but can be consistent with bladder outlet obstruction. Alex has been c/o increased low back pain on the left for the past 2 days and he recently had a L ureteral stent. Blockage? C/O back pain L flank area. Denies nausea/abd pain/CP/Change in breathing, dysuria. Continues to have some abd distension. Objective Data Objective Data Vital Signs: Vital Signs Temp Pulse Resp BP Pulse Ox O2 Del Method 98.2 F 75 16 142/82 H 95 Room Air 06/04/22 08:04 06/04/22 08:04 06/04/22 08:04 06/04/22 08:04 06/04/22 08:04 06/04/22 08:04 Oxygen Delivery Method Room Air Weight: 142 lb 6.698 oz Body Mass Index (BMI) 19.5 Intake & Output: Intake and Output for Last 24 Hours 06/02/22 06/03/22 06/04/22 23:59 23:59 23:59 Intake Total 2660.00 / 2660.00 5375 / 5375 1110 / 1110 Output Total 1150 / 1150 2825 / 2825 900 / 900 Balance 1510.00 / 1510.00 2550 / 2550 210 / 210 Medical Nutrition Assessment Dietitian: Malnutrition Criteria Met Start: 05/28/22 15:25 Freq: Status: Active Protocol: Document 06/03/22 13:53 AG (Rec: 06/03/22 13:53 AG [id number]) Nutrition Malnutrition Evidence of Malnutrition Exists Yes Malnutrition (severe): Chronic Evidenced By Suboptimal Energy Intake ( Severe),Weight Loss (Severe), Physical Changes (Severe) Clinical Problem Chronic Disease or Condition Related Malnutrition Etiology chronic, severe malnutrition related to inadequate energy intake d/t swallowing difficulties Signs/Symptoms as evidenced by estimated PO intake meeting <75% of estimated energy needs >3 months; unintentional wt loss of ~20.8#/13% x ~6 months; obvious, severe muscle wasting fat loss evident in orbital, clavicle, acromion, and temporal areas per physical exam; BMI 19.6 Status Active Problem Recommendation Dietitian Recommendations/Changes 1. Via PEG- Nepro bolus feeds 225mL 5x/day with 100mL H2O flush before and after each bolus to provide 1991 calories , 91 g protein. In discussion w/ Dr. Mccollum, will continue w/ 100mL H2O flush before and after each bolus PLUS 200mL H2O flush every 4 hours to provide ~3017mL total fluid per day (817 water from TF, 1000mL from TF flushes, 1200mL additional flush). 2. NPO w/ pleasure PO feeding per PARKING TECHNICIAN. Tube feeds currently meeting 100% estimated energy needs. 3. Continue daily wts. Lab / Micro Data Result Diagrams: 06/03/22 05:37 06/04/22 05:25 Labs: Laboratory Results - last 24 hr 06/03/22 18:00: Ur Random Sodium 132 06/03/22 18:00: Urine Creatinine 35.80 06/03/22 20:10: Potassium 4.8 06/04/22 05:25: Sodium 141, Potassium 4.7, Chloride 108 H, Carbon Dioxide 27.0, Anion Gap 6, BUN 26 H, Creatinine 1.88 H, Estim Creat Clear Calc 28.71, Est GFR (MDRD) Af Amer 45 L, Est GFR (MDRD) Non-Af 37 L, BUN/Creatinine Ratio 13.8, Glucose 95, Calcium 8.5, Phosphorus 4.5 Micro: Microbiology 05/30/22 05:31 Urine Catheter - Zapata Urine Culture - Final Culture exhibits no growth. Physical Exam Const alert, oriented x3 and no apparent distress General Appearance: cooperative Resp normal respiratory effort and clear to auscultation bilaterally Effort and Inspection: Negative for tachypneic, respiratory distress or labored Auscultation: diminished lung sounds Cardio regular rate, regular rhythm, S1 normal heart sound, S2 normal heart sound and no gallops GI GI Narrative: Distended but, soft to palpation. NT, no guarding with palpation. BS's are present. Had a BM today and it was very loose but, he is only having 1 BM a day. Extremity no calf tenderness General Extremity: Negative for edema Skin Skin Narrative: Dry but, no breakdown and no rashes. Neuro CN's II-XII intact bilaterally Neuro Narrative: Doing well in therapy and is ambulating without an AD......still with occasional LOB and he is CGA. Psych cooperative Appearance: appropriate Assessment & Plan Assessment/Plan (1) Acute on chronic renal failure: (2) Debility: (3) Acute cerebrovascular accident (CVA) due to ischemia: (4) Acute on chronic blood loss anemia: (5) Presence of externally removable percutaneous endoscopic gastrostomy (PEG) tube: (6) Ureteral stent present: (7) Iron deficiency anemia: (8) Hyperphosphatemia associated with renal failure: (9) Hyperkalemia: PLAN: Plan 1. US of the kidneys and bladder today. Possible recurrent hydronephrosis with L flank pain and increasing creatinine with a FENa of 5.3%. 2. Still not having regular BM's. Will discuss with Dr. Ruggiero. Abd remains distended. 3. CBC, BMP, mag and phos on Wednesday morning 4. DC Doxazosin - it is not resolving the urine retention issue and it contributes to the orthostatic hypotension. Will need to follow up with urology post DC. Will need to be able to self catheterize at DC 5. Orthostatic VS's Wednesday AM. 6. Continue therapy. Charges/Coding Visit Charges Inpatient E&M: 17841 Subs Hosp L2
--- NOTE | 2022-06-04 11:06 | US_ITS ---
INDICATION: acute renal failure -- recent hydronephrosis/L ureteral stent EXAMINATION: Ultrasound US Kidney(s) complete (eg, kidneys and bladder) TECHNIQUE: Higgins scale and color doppler images were obtained of the kidneys. COMPARISON: CT scan obtained on 04/24/2022.. FINDINGS: RIGHT KIDNEY: The right kidney demonstrates increased echogenicity and unremarkable vascularity, suggestive of medical renal disease. Multiple cysts visualized within the right kidneys largest of which measures 4.9 x 5.0 x 4.8 cm. No shadowing calculus, focal lesion or perinephric collection is demonstrated. The right kidney measures 10.5 x 6.0 x 4.2 cm. The right renal cortex measures 1.3 cm. LEFT KIDNEY: The left kidney demonstrates increased echogenicity and unremarkable vascularity, suggestive of medical renal disease. Multiple cysts visualized within the left kidneys largest of which measures 10.7 x 9.4 x 6.8 cm. Multiple hyperechoic foci consistent with renal stones are visualized the largest of which is seen measuring 0.8 x 0.6 x 0.6 cm. The left kidney measures 11.1 x 4.8 x 5.1 cm. The left renal cortex measures 1.3 cm. URINARY BLADDER: Stent is visualized within the urinary bladder. Distended urinary bladder volume measures 341.8 mL. Unremarkable bladder wall thickness is seen measuring 0.2 cm. US/Kidney and Bladder IMPRESSION: Increased echogenicity of bilateral kidneys consistent with medical renal disease. Multiple cysts visualized in bilateral kidneys. Stent is visualized within the urinary bladder. Electronically Signed: Pablito Cornell MD at 14:30 EDT ,
[2022-06-04 13:20] VITALS: BMI 19.5
[2022-06-04 19:12] VITALS: BP 141/80; PULSE 78; RESP 12; TEMP 36.7; O2SAT 98
--- NOTE | 2022-06-04 20:12 | NURSING ---
#15 burundian straight cath inserted without difficulty and draining clear, light yellow urine. Pt tolerates procedure well.
[2022-06-04] MEDS: Mirtazapine 15 MG Tablet GT (22:33)
[2022-06-04] MEDS: Atorvastatin Calcium 80 MG Tablet GT (22:35)
[2022-06-04] MEDS: Doxazosin 1 MG Tablet 2 MG GT (22:36)
[2022-06-04] MEDS: Zolpidem Tartrate 5 MG Tablet PO (22:41)
[2022-06-05] MEDS: Simethicone 40MG/0.6ML Bottle 80 MG GT ×5 (01:48→23:01)
--- NOTE | 2022-06-05 01:50 | NURSING ---
PT AWAKENED FOR BLADDER SCAN DURING HS. PT'S T SHIRT IS DAMP FROM SWEATING DURING SLEEP. UPON WALKING TO BR PT BECOMES NEAR SYNCOPAL AND ASSISTED TO A CHAIR. PT RETURNS WITHOUT DIFFICULTY TO BED, BUT DOES NOT WANT TO TRY TO CATH SELF AT THIS TIME.
[2022-06-05 05:52] VITALS: BP 105/57; BP 69/45; BP 73/47; PULSE 102; PULSE 86; PULSE 91
[2022-06-05] MEDS: Gabapentin 300 MG Capsule GT ×3 (06:03→20:44)
[2022-06-05] MEDS: Midodrine HCl 5 MG Tablet GT ×2 (06:03→14:56)
[2022-06-05] MEDS: Nystatin/Triamcin Cream Tube 1 APPLIC TOPICAL ×2 (06:04→20:46)
[2022-06-05] MEDS: NEPRO TUBE FEED 1,000 ML LIQUID 225 ML GT ×4 (06:04→22:28)
[2022-06-05 07:36] VITALS: BP 105/57; PULSE 80; RESP 14; TEMP 36.7; O2SAT 92
--- NOTE | 2022-06-05 09:39 | NURSING ---
Received call for Jyoti RN at [facility] questioning if pt still had Zapata catheter in place and requiring about pts recent lab results. Recent labs faxed.
[2022-06-05] MEDS: Aspirin 81 MG TAB.CHEW 324 MG GT (10:49)
[2022-06-05] MEDS: Arthritis Pain Compound 60 CLICK TUBE TOPICAL ×2 (10:49→20:45)
[2022-06-05] MEDS: Menthol/Lanolin/Calamine/Znox 113 GM Tube 1 APPLIC TOPICAL ×2 (10:50→20:45)
[2022-06-05] MEDS: Fluticasone/Salmeterol 232-14 Inhaler 1 PUFF INHALATION ×2 (10:50→20:43)
[2022-06-05] MEDS: Nystatin Powder 15gm Bottle 1 APPLIC TOPICAL ×2 (10:51→20:45)
[2022-06-05] MEDS: Pantoprazole Sodium 40 MG Tablet PO (10:51)
[2022-06-05] MEDS: Sertraline 50 MG Tablet 25 MG GT (10:52)
[2022-06-05 13:18] VITALS: BMI 19.5
[2022-06-05] MEDS: 0.9% Saline Lock 10 ML Syringe IV ×2 (17:21→20:33)
[2022-06-05 19:30] VITALS: BP 108/65; PULSE 73; RESP 16; TEMP 36.9; O2SAT 97
[2022-06-05] MEDS: Atorvastatin Calcium 80 MG Tablet GT (20:44)
[2022-06-05] MEDS: Mirtazapine 15 MG Tablet GT (20:44)
[2022-06-05 20:49] VITALS: BMI 19.5
[2022-06-05 20:50] VITALS: PULSE 73; RESP 16; O2SAT 96
[2022-06-06] MEDS: Midodrine HCl 5 MG Tablet GT ×2 (06:08→14:55)
[2022-06-06] MEDS: Simethicone 40MG/0.6ML Bottle 80 MG GT ×4 (06:08→23:16)
[2022-06-06] MEDS: Gabapentin 300 MG Capsule GT ×3 (06:09→22:00)
[2022-06-06] MEDS: NEPRO TUBE FEED 1,000 ML LIQUID 225 ML GT ×5 (06:09→22:01)
[2022-06-06] MEDS: Nystatin/Triamcin Cream Tube 1 APPLIC TOPICAL ×2 (06:09→22:05)
[2022-06-06 06:36] VITALS: BP 105/62; BP 71/49; BP 99/56; PULSE 71; PULSE 77; PULSE 92
[2022-06-06 08:10] VITALS: BP 99/56; PULSE 77; RESP 16; TEMP 36.4; O2SAT 93
[2022-06-06] MEDS: Aspirin 81 MG TAB.CHEW 324 MG GT (09:26)
[2022-06-06] MEDS: Arthritis Pain Compound 60 CLICK TUBE TOPICAL ×2 (09:27→22:04)
[2022-06-06] MEDS: Fluticasone/Salmeterol 232-14 Inhaler 1 PUFF INHALATION ×2 (09:27→22:04)
[2022-06-06] MEDS: Sertraline 50 MG Tablet 25 MG GT (09:28)
[2022-06-06] MEDS: Pantoprazole Sodium 40 MG Tablet PO (09:28)
[2022-06-06] MEDS: Menthol/Lanolin/Calamine/Znox 113 GM Tube 1 APPLIC TOPICAL ×2 (09:30→22:04)
[2022-06-06] MEDS: Nystatin Powder 15gm Bottle 1 APPLIC TOPICAL ×2 (09:31→22:02)
[2022-06-06 14:16] VITALS: BMI 19.5
[2022-06-06] MEDS: 0.9% Saline Lock 10 ML Syringe IV (14:57)
[2022-06-06 19:22] VITALS: BP 92/60; PULSE 81; RESP 18; TEMP 36.9; O2SAT 98
[2022-06-06] MEDS: Zolpidem Tartrate 5 MG Tablet PO (22:00)
[2022-06-06] MEDS: Mirtazapine 15 MG Tablet GT (22:00)
[2022-06-06] MEDS: Atorvastatin Calcium 80 MG Tablet GT (22:04)
[2022-06-07 06:00] VITALS: O2SAT 89
[2022-06-07] MEDS: Gabapentin 300 MG Capsule GT ×3 (06:18→20:56)
[2022-06-07] MEDS: Midodrine HCl 5 MG Tablet GT ×2 (06:18→15:11)
[2022-06-07] MEDS: Nystatin/Triamcin Cream Tube 1 APPLIC TOPICAL ×2 (06:19→20:57)
[2022-06-07] MEDS: NEPRO TUBE FEED 1,000 ML LIQUID 225 ML GT ×5 (06:19→20:57)
[2022-06-07] MEDS: Simethicone 40MG/0.6ML Bottle 80 MG GT ×4 (06:19→20:56)
[2022-06-07 07:00] VITALS: BP 93/57; PULSE 70; RESP 16; TEMP 36.5; O2SAT 93
[2022-06-07] MEDS: Aspirin 81 MG TAB.CHEW 324 MG GT (10:22)
[2022-06-07] MEDS: Arthritis Pain Compound 60 CLICK TUBE TOPICAL ×2 (10:22→20:58)
[2022-06-07] MEDS: Fluticasone/Salmeterol 232-14 Inhaler 1 PUFF INHALATION ×2 (10:22→20:58)
[2022-06-07] MEDS: Sertraline 50 MG Tablet 25 MG GT (10:23)
[2022-06-07] MEDS: Pantoprazole Sodium 40 MG Tablet PO (10:23)
[2022-06-07] MEDS: Nystatin Powder 15gm Bottle 1 APPLIC TOPICAL ×2 (10:24→20:57)
[2022-06-07] MEDS: Menthol/Lanolin/Calamine/Znox 113 GM Tube 1 APPLIC TOPICAL ×2 (10:24→20:58)
--- NOTE | 2022-06-07 11:15 | NURSING ---
Pt requested to be re-weighed b/c nurse aide wrote down 61.3kg but the scale said 63.1kg. This nurse re-weighed at this time and confirms Pt weight is 63.1kg.
[2022-06-07 14:17] VITALS: BMI 19.5
[2022-06-07 19:27] VITALS: BP 117/65; PULSE 72; RESP 18; TEMP 37.1; O2SAT 93
[2022-06-07] MEDS: Mirtazapine 15 MG Tablet GT (20:56)
[2022-06-07] MEDS: Atorvastatin Calcium 80 MG Tablet GT (20:57)
[2022-06-08 05:00] VITALS: BMI 19.5
[2022-06-08 05:31] VITALS: BP 119/71; BP 67/48; BP 92/66; PULSE 63; PULSE 69; PULSE 82
[2022-06-08] MEDS: Midodrine HCl 5 MG Tablet GT ×3 (05:43→21:47)
[2022-06-08] MEDS: Nystatin/Triamcin Cream Tube 1 APPLIC TOPICAL ×2 (05:43→21:58)
[2022-06-08] MEDS: Simethicone 40MG/0.6ML Bottle 80 MG GT ×4 (05:43→23:59)
[2022-06-08] MEDS: NEPRO TUBE FEED 1,000 ML LIQUID 225 ML GT ×2 (05:43→10:13)
[2022-06-08] MEDS: Gabapentin 300 MG Capsule GT ×3 (05:44→21:44)
[2022-06-08 05:47] LABS: Hematocrit 31.8 % (40-54); Hemoglobin 9.8 g/dL (13.0-16.5); Mean Corp Hgb Conc 30.8 g/dL (32-36); Mean Corpuscular Hgb 28.2 pg (27.0-32.0); Mean Corpuscular Volume 91.6 fL (80-94); Platelet Count 312 K/mm3 (150-450); RBC Distribution Width CV 16.4 % (11.6-14.6); RBC Distribution Width SD 54.5 fl (35.1-43.9); Red Blood Count 3.47 M/mm3 (4.6-6.2); White Blood Count 8.7 K/mm3 (4.4-11.0)
[2022-06-08 06:08] LABS: Anion Gap 8 (5-15); BUN 43 mg/dL (7-18); Calcium,Total 9.8 mg/dL (8.5-10.1); Chloride 105 mmol/L (98-107); Creatinine, Serum 1.87 mg/dL (0.70-1.30); EST Glomerular Filtration Rate 37 mL/min (>60); Est Glom Filt Rate - Afr Amer 45 mL/min (>60); Estimated Creatinine Clearance 28.09 ml/min; Glucose 99 mg/dL (74-106); Magnesium 2.2 mg/dL (1.6-2.6); Phosphorus 5.4 mg/dL (2.5-4.9); Potassium 4.8 mmol/L (3.5-5.1); Sodium Level 140 mmol/L (136-145)
--- NOTE | 2022-06-08 07:00 | NURSING ---
PT IS DOES NOT COMBATIVE, AGITATED AND CONFUSED WITH THERAPY THIS AM.
[2022-06-08 07:46] VITALS: BP 119/71; PULSE 63; RESP 16; TEMP 36.6; O2SAT 92
--- NOTE | 2022-06-08 08:52 | PN_ITS ---
Subjective Subjective Afebrile VSS-blood pressure tends to be a little on the low side in the a.m. but the mean arterial pressure is still within normal limits. The pulse was 63 lying down today and 82 standing up. Blood pressure was 119/71 lying down and dropped to 67/48 standing. Maintaining appropriate oxygen saturation on RA Fluid balance has been positive for the past 3 days with the increase in flushes. Weight was 144 and 3 ounces at admission to rehab and today is 136 pounds and 11 ounces. He was transitioned to Nepro due to hyperkalemia/hyperphosphatemia. Having a BM everyday or every other day. Discussed with nursing - no problems that need addressed Reviewed the PT/OT/ST notes Medication list reviewed. All lab was personally reviewed. Hemoglobin is up to 9.8 today following supplementation of iron with intravenous iron sucrose. White blood cell count is normal. Platelet count is normal. Potassium is stable at 4.8. Serum bicarb is 27. BUN is 43 with a creatinine of 1.87. Alex's only complaints are weakness and decreased endurance although he admits he has come a long way since arriving on rehab. He is sleeping well and is having a BM most days. Objective Data Objective Data Vital Signs: Vital Signs Temp Pulse Resp BP Pulse Ox O2 Del Method 97.8 F 63 16 119/71 92 Room Air 06/08/22 07:46 06/08/22 07:46 06/08/22 07:46 06/08/22 07:46 06/08/22 07:46 06/08/22 07:46 Oxygen Delivery Method Room Air Weight: 136 lb 10.986 oz Body Mass Index (BMI) 19.5 Intake & Output: Intake and Output for Last 24 Hours 06/06/22 06/07/22 06/08/22 23:59 23:59 23:59 Intake Total 4125 / 4125 3775 / 3775 625 / 625 Output Total 2375 / 2375 2780 / 2780 450 / 450 Balance 1750 / 1750 995 / 995 175 / 175 Medical Nutrition Assessment Dietitian: Malnutrition Criteria Met Start: 05/28/22 15:25 Freq: Status: Active Protocol: Document 06/03/22 13:53 AG (Rec: 06/03/22 13:53 AG [id number]) Nutrition Malnutrition Evidence of Malnutrition Exists Yes Malnutrition (severe): Chronic Evidenced By Suboptimal Energy Intake ( Severe),Weight Loss (Severe), Physical Changes (Severe) Clinical Problem Chronic Disease or Condition Related Malnutrition Etiology chronic, severe malnutrition related to inadequate energy intake d/t swallowing difficulties Signs/Symptoms as evidenced by estimated PO intake meeting <75% of estimated energy needs >3 months; unintentional wt loss of ~20.8#/13% x ~6 months; obvious, severe muscle wasting fat loss evident in orbital, clavicle, acromion, and temporal areas per physical exam; BMI 19.6 Status Active Problem Recommendation Dietitian Recommendations/Changes 1. Via PEG- Nepro bolus feeds 225mL 5x/day with 100mL H2O flush before and after each bolus to provide 1991 calories , 91 g protein. In discussion w/ Dr. Mccollum, will continue w/ 100mL H2O flush before and after each bolus PLUS 200mL H2O flush every 4 hours to provide ~3017mL total fluid per day (817 water from TF, 1000mL from TF flushes, 1200mL additional flush). 2. NPO w/ pleasure PO feeding per PAPER PRODUCTS SUPERVISOR. Tube feeds currently meeting 100% estimated energy needs. 3. Continue daily wts. Lab / Micro Data Result Diagrams: 06/08/22 05:20 06/08/22 05:20 Labs: Laboratory Results - last 24 hr 06/08/22 05:20: WBC 8.7, RBC 3.47 L, Hgb 9.8 L, Hct 31.8 L, MCV 91.6, MCH 28.2, MCHC 30.8 L, RDW Std Deviation 54.5 H, RDW Coeff of Gustabo 16.4 H, Plt Count 312, MPV 12.0 06/08/22 05:20: Sodium 140, Potassium 4.8, Chloride 105, Carbon Dioxide 27.0, Anion Gap 8, BUN 43 H, Creatinine 1.87 H, Estim Creat Clear Calc 28.09, Est GFR (MDRD) Af Amer 45 L, Est GFR (MDRD) Non-Af 37 L, BUN/Creatinine Ratio 23.0 H, Glucose 99, Calcium 9.8, Phosphorus 5.4 H, Magnesium 2.2 Micro: Microbiology 05/30/22 05:31 Urine Catheter - Zapata Urine Culture - Final Culture exhibits no growth. Physical Exam Const alert, oriented x3 and no apparent distress Constitutional Narrative: Sitting in the recliner at the bedside. Appears in no distress. Pleasant and engaging Resp Resp Narrative: Diminished throughout but CTA. Not tachypneic. Breathing is not labored, even with ambulation now. Cardio regular rate, regular rhythm and no gallops GI GI Narrative: PEG site has no erythema and no DC. Abd is a little distended today but soft and much less tympanic. Extremity no calf tenderness General Extremity: Negative for edema Skin General Skin Exam: no breakdown Rashes: no rashes Psych thought process normal, cooperative and affect normal Assessment & Plan Assessment/Plan (1) Polycystic kidney disease: (2) Malnutrition: (3) Iron deficiency anemia: (4) BPH (benign prostatic hypertrophy): QUALIFIERS: Qualified Code(s): R39.12 - Poor urinary stream (5) Acute cerebrovascular accident (CVA) due to ischemia: (6) Orthostatic hypotension: (7) Depression: (8) Urinary retention: PLAN: Plan 1. speak with the rotary lithographic press operator about possibly increasing calories? Want to avoid refeeding S. though. 2. Increase the Midodrine to TID. 3. did not need to be straight cathed yesterday or so far today. He still need to know how to self cath to be able to go home, because he has had to be catheterized in the past and it would prevent a trip to the ER. will need to follow up with urology post DC. He can not tolerate medication for BPH due to severe orthostatic hypotension. 4. D/W the rotary lithographic press operator......he is still losing weight. She is going to increase the calories but, continue to use Nepro since he has hyperphosphatemia and hyperkalemia and he is dependent on TF now. 5. Continue therapy 6. May need to follow up with nephrology going forward for possible polycystic Kidney. 7. I do not feel that Alex is ready to to go home and live alone. He is still losing wt and he is still very orthostatic. He is weak and does not feel he is ready to go home yet either. I recommend SNF upon DC from rehab until the wt stabilizes and starts to increase and the hypotension has been controlled. May need to increase the Midodrine to 10 mg. Charges/Coding Visit Charges Inpatient E&M: 14563 Subs Hosp L2
[2022-06-08] MEDS: Fluticasone/Salmeterol 232-14 Inhaler 1 PUFF INHALATION ×2 (10:13→21:49)
[2022-06-08] MEDS: Sertraline 50 MG Tablet 25 MG GT (10:15)
[2022-06-08] MEDS: Pantoprazole Sodium 40 MG Tablet PO (10:15)
[2022-06-08] MEDS: Aspirin 81 MG TAB.CHEW 324 MG GT (10:16)
[2022-06-08] MEDS: Arthritis Pain Compound 60 CLICK TUBE TOPICAL ×2 (10:20→21:48)
[2022-06-08 12:33] VITALS: BMI 19.5
--- NOTE | 2022-06-08 13:03 | CASEMGMT ---
Social Work IDT met with patient and Daniel ROTHMAN, for Team meeting. Discussed patient's progress in PT/OT/ST/SN. Per Medicare, DC 06/11. Pt expressed readiness to DC home alone. Pt states he still fatigues quickly and would like to continue with therapy for a couple more weeks. Pt and POA inquired about SNF, specifically TCU. IDT agreeable for TCU/SNF stay before returning home. would like pt to become more medically stable prior to DC home as well. SW referred to TCU - pt accepted. Plan is for pt to DC to TCU 06/11, then home. Pt/POA appreciative. Plan: DC 06/11 to TCU, skilled Hansa Kerr MSW SHIFT SUPERVISOR
[2022-06-08] MEDS: NEPRO TUBE FEED 1,000 ML LIQUID 250 ML GT ×3 (14:12→21:52)
--- NOTE | 2022-06-08 18:26 | NURSING ---
Straight cath done per Dr. Mccollum request for patient to demo to this nurse standing by the toilet to practice for home going. Patient did well. 400cc output noted.
[2022-06-08 20:05] VITALS: BP 142/79; PULSE 76; RESP 16; TEMP 36.8; O2SAT 94
[2022-06-08 20:15] VITALS: BMI 19.5
[2022-06-08] MEDS: Nystatin Powder 15gm Bottle 1 APPLIC TOPICAL (21:48)
[2022-06-08] MEDS: Menthol/Lanolin/Calamine/Znox 113 GM Tube 1 APPLIC TOPICAL (21:48)
[2022-06-08] MEDS: Atorvastatin Calcium 80 MG Tablet GT (21:50)
[2022-06-08] MEDS: Mirtazapine 15 MG Tablet GT (21:52)
[2022-06-08 22:00] VITALS: PULSE 77; RESP 16; O2SAT 97
[2022-06-09] MEDS: Nystatin/Triamcin Cream Tube 1 APPLIC TOPICAL ×2 (05:44→21:49)
[2022-06-09] MEDS: Simethicone 40MG/0.6ML Bottle 80 MG GT ×4 (05:44→22:23)
[2022-06-09] MEDS: Midodrine HCl 5 MG Tablet GT ×3 (05:44→21:50)
[2022-06-09] MEDS: Gabapentin 300 MG Capsule GT ×3 (05:48→21:50)
[2022-06-09] MEDS: NEPRO TUBE FEED 1,000 ML LIQUID 250 ML GT ×4 (05:49→21:50)
[2022-06-09 07:28] VITALS: BP 102/63; PULSE 70; RESP 16; TEMP 36.4; O2SAT 95
[2022-06-09] MEDS: Lansoprazole 15 MG Capsule.DR 30 MG PO (10:09)
[2022-06-09] MEDS: Sertraline 50 MG Tablet 25 MG GT (10:09)
[2022-06-09] MEDS: Aspirin 81 MG TAB.CHEW 324 MG GT (10:10)
[2022-06-09] MEDS: Fluticasone/Salmeterol 232-14 Inhaler 1 PUFF INHALATION ×2 (10:10→21:50)
[2022-06-09] MEDS: Arthritis Pain Compound 60 CLICK TUBE TOPICAL ×2 (10:10→21:49)
[2022-06-09] MEDS: Nystatin Powder 15gm Bottle 1 APPLIC TOPICAL ×2 (10:30→21:51)
[2022-06-09] MEDS: Menthol/Lanolin/Calamine/Znox 113 GM Tube 1 APPLIC TOPICAL ×2 (10:30→21:51)
--- NOTE | 2022-06-09 14:20 | PN_ITS ---
Subjective Subjective Afebrile VSS Maintaining appropriate oxygen saturation on RA Fluid balance for yesterday was +1275 however overnight he was -648. Weight continues to decline and today he is 134 pounds and 11 ounces which is down approximately 2 pounds since yesterday? But had + fluid balance? Calories were increased yesterday and will continue to follow daily weights and I&O's He was straight cath'd this AM but, only got 100 cc's Discussed with nursing - no problems that need addressed Reviewed the PT/OT/ST notes Medication list reviewed. Good mood today. No change in cough and denies SOB at rest. No CP, calf pain, dysuria, abd pain, N/V, less lightheaded today. Objective Data Objective Data Vital Signs: Vital Signs Temp Pulse Resp BP Pulse Ox O2 Del Method 97.6 F L 70 16 102/63 95 Room Air 06/09/22 07:28 06/09/22 07:28 06/09/22 07:28 06/09/22 07:28 06/09/22 07:28 06/09/22 07:28 Oxygen Delivery Method Room Air Weight: 134 lb 11.239 oz Body Mass Index (BMI) 19.5 Intake & Output: Intake and Output for Last 24 Hours 06/07/22 06/08/22 06/09/22 23:59 23:59 23:59 Intake Total 3775 / 3775 2925 / 2925 500 / 500 Output Total 2780 / 2780 1650 / 1650 1140 / 1140 Balance 995 / 995 1275 / 1275 -640 / -640 Medical Nutrition Assessment Dietitian: Malnutrition Criteria Met Start: 05/28/22 15:25 Freq: Status: Active Protocol: Document 06/03/22 13:53 AG (Rec: 06/03/22 13:53 [id number]) Nutrition Malnutrition Evidence of Malnutrition Exists Yes Malnutrition (severe): Chronic Evidenced By Suboptimal Energy Intake ( Severe),Weight Loss (Severe), Physical Changes (Severe) Clinical Problem Chronic Disease or Condition Related Malnutrition Etiology chronic, severe malnutrition related to inadequate energy intake d/t swallowing difficulties Signs/Symptoms as evidenced by estimated PO intake meeting <75% of estimated energy needs >3 months; unintentional wt loss of ~20.8#/13% x ~6 months; obvious, severe muscle wasting fat loss evident in orbital, clavicle, acromion, and temporal areas per physical exam; BMI 19.6 Status Active Problem Recommendation Dietitian Recommendations/Changes 1. Via PEG- Nepro bolus feeds 225mL 5x/day with 100mL H2O flush before and after each bolus to provide 1991 calories , 91 g protein. In discussion w/ Dr. Mccollum, will continue w/ 100mL H2O flush before and after each bolus PLUS 200mL H2O flush every 4 hours to provide ~3017mL total fluid per day (817 water from TF, 1000mL from TF flushes, 1200mL additional flush). 2. NPO w/ pleasure PO feeding per INTERNAL CORROSION SPECIALIST. Tube feeds currently meeting 100% estimated energy needs. 3. Continue daily wts. Lab / Micro Data Result Diagrams: 06/08/22 05:20 06/08/22 05:20 Micro: Microbiology 05/30/22 05:31 Urine Catheter - Zapata Urine Culture - Final Culture exhibits no growth. Physical Exam Const alert and oriented x3 Resp normal respiratory effort and clear to auscultation bilaterally Auscultation: diminished lung sounds Cardio regular rate, regular rhythm and no gallops GI GI Narrative: NT, minimal distension, soft, no guarding with palpation, BS's present. Extremity no calf tenderness General Extremity: Negative for edema Assessment & Plan Assessment/Plan (1) Debility: PLAN: Continue therapy (2) Acute cerebrovascular accident (CVA) due to ischemia: PLAN: doing well in therapy but, not yet strong enough to return home alone. Need to see the weight start going up and not down. Continue to monitor daily weights and I&O (3) Orthostatic hypotension: PLAN: He is now on 5 mg Midodrine TID. Will recheck orthostatics in the AM. (4) Urinary retention: PLAN: Intermittently retains and will continue teaching how to self cath (5) Malnutrition: PLAN: Calories increased yesterday. Appreciate input from the manager investigations. PLAN: Plan SNF at [place] from rehab for additional therapy for strengthening prior to returning home. Charges/Coding Visit Charges Inpatient E&M: 08059 Subs Hosp L2
[2022-06-09 14:39] VITALS: BP 136/70; BP 144/77; BP 86/62; PULSE 65; PULSE 75; PULSE 86
[2022-06-09 15:36] VITALS: BMI 19.5
--- NOTE | 2022-06-09 16:08 | CHAPLAIN ---
Type of Pastoral Visit ___ Initial Visit _x__ Follow-up Visit ___ On-call Visit ___ General Patient Visit ___ Spiritual Assessment ___ Family Conference ___ Bereavement ___ Rapid Response ___ Code Blue ___ Other (describe below) Pastoral Care Referral From _x__ Patient ___ Family ___ Nurse ___ Physician ___ Social Services Designee ___ Strategic Buyer ___ Other (describe below) Sacrament/Intervention _x__ Active listening ___ Anointing ___ Anglican ___ Bereavement ___ Communion ___ Bee exploration ___ _x__ Life review _x__ Prayer ___ Reconciliation ___ Sacrament of Sick _x__ Supportive presence ___ Wedding ___ Other (describe below) Pastoral Comments follow up to patient who states there is improvement but that he will go to TCU before he can go home safely; pt is okay with going to TCU since he has been there before; pt is also looking forward to getting home; pt misses being outside and cutting up wood; pt given time to have casual conversation for his support; pt welcomes a prayer; pt is tearful after the prayer
[2022-06-09 19:24] VITALS: BP 135/66; PULSE 74; RESP 18; TEMP 36.5; O2SAT 95
[2022-06-09] MEDS: Zolpidem Tartrate 5 MG Tablet PO (21:49)
[2022-06-09] MEDS: Mirtazapine 15 MG Tablet GT (21:50)
[2022-06-09] MEDS: Atorvastatin Calcium 80 MG Tablet GT (21:50)
[2022-06-09 22:00] VITALS: PULSE 73; RESP 15; O2SAT 96
[2022-06-09 22:05] VITALS: BMI 19.5
--- NOTE | 2022-06-09 23:15 | NURSING ---
Pt performing tube feed task with stand by assistance. Pt cued to drain tube before removing. Tolerating TF and increased feed amount well.
--- NOTE | 2022-06-10 00:40 | NURSING ---
Midnight bladder scanned after toileting. Voided 400ml and BS for 242mL.
[2022-06-10 06:00] VITALS: BP 104/62; BP 77/48; BP 79/51; PULSE 74; PULSE 78; PULSE 86
[2022-06-10] MEDS: NEPRO TUBE FEED 1,000 ML LIQUID 250 ML GT ×5 (06:00→21:43)
[2022-06-10] MEDS: Simethicone 40MG/0.6ML Bottle 80 MG GT ×4 (06:00→22:00)
[2022-06-10] MEDS: Gabapentin 300 MG Capsule GT ×3 (06:01→21:42)
[2022-06-10] MEDS: Midodrine HCl 5 MG Tablet GT ×3 (06:01→21:43)
[2022-06-10] MEDS: Nystatin/Triamcin Cream Tube 1 APPLIC TOPICAL ×2 (06:01→21:41)
[2022-06-10 07:21] VITALS: BP 104/62; PULSE 74; RESP 16; TEMP 36.3; O2SAT 94
[2022-06-10] MEDS: Aspirin 81 MG TAB.CHEW 324 MG GT (09:58)
[2022-06-10] MEDS: Arthritis Pain Compound 60 CLICK TUBE TOPICAL (09:58)
[2022-06-10] MEDS: Sertraline 50 MG Tablet 25 MG GT (09:59)
[2022-06-10] MEDS: Fluticasone/Salmeterol 232-14 Inhaler 1 PUFF INHALATION ×2 (09:59→21:42)
[2022-06-10] MEDS: Lansoprazole 15 MG Capsule.DR 30 MG PO (09:59)
[2022-06-10] MEDS: Menthol/Lanolin/Calamine/Znox 113 GM Tube 1 APPLIC TOPICAL ×2 (10:03→21:41)
[2022-06-10] MEDS: Nystatin Powder 15gm Bottle 1 APPLIC TOPICAL ×2 (10:04→21:41)
[2022-06-10 15:11] VITALS: BMI 19.5
[2022-06-10 21:16] VITALS: BP 128/62; PULSE 66; RESP 16; TEMP 36.6; O2SAT 95; BMI 19.5
[2022-06-10 21:20] VITALS: PULSE 66; RESP 16; O2SAT 95
[2022-06-10] MEDS: Atorvastatin Calcium 80 MG Tablet GT (21:42)
[2022-06-10] MEDS: Zolpidem Tartrate 5 MG Tablet PO (21:42)
[2022-06-10] MEDS: Mirtazapine 15 MG Tablet GT (21:43)
--- NOTE | 2022-06-10 22:41 | NURSING ---
pt reported during clinical findings that her was having terrible heartburn that was causing him to have sternal discomfort radiating to his back, when asked pt denied any other symptoms and kept stating that is was heartburn. pt noted to be belching and having a weak intermittent cough bringing up mucus. staff did not see mucus. pt assisted to the toilet later and was noted to expel a lot of flatus and having a small loose ho colored bm. pt returned to chair and denied any other needs. pt declined any pain medication when offered. rn made aware and will continue to monitor pt
--- NOTE | 2022-06-11 02:32 | NURSING ---
0100 pt up to the br and returned to bed, pt reports that his sternal discomfort is gone and is feeling better. rn made aware
[2022-06-11] MEDS: Simethicone 40MG/0.6ML Bottle 80 MG GT ×3 (05:51→17:52)
[2022-06-11] MEDS: Midodrine HCl 5 MG Tablet GT ×2 (05:52→14:34)
[2022-06-11] MEDS: Gabapentin 300 MG Capsule GT ×2 (05:52→14:34)
[2022-06-11] MEDS: NEPRO TUBE FEED 1,000 ML LIQUID 250 ML GT ×4 (05:52→17:51)
[2022-06-11] MEDS: Nystatin/Triamcin Cream Tube 1 APPLIC TOPICAL (05:52)
[2022-06-11 07:40] VITALS: BP 116/70; PULSE 76; RESP 17; TEMP 35.9; O2SAT 96
[2022-06-11] MEDS: Fluticasone/Salmeterol 232-14 Inhaler 1 PUFF INHALATION (09:27)
[2022-06-11] MEDS: Arthritis Pain Compound 60 CLICK TUBE TOPICAL (09:28)
[2022-06-11] MEDS: Lansoprazole 15 MG Capsule.DR 30 MG PO (09:29)
[2022-06-11] MEDS: Aspirin 81 MG TAB.CHEW 324 MG GT (09:33)
[2022-06-11] MEDS: Nystatin Powder 15gm Bottle 1 APPLIC TOPICAL (09:49)
[2022-06-11] MEDS: Menthol/Lanolin/Calamine/Znox 113 GM Tube 1 APPLIC TOPICAL (09:50)
[2022-06-11] MEDS: Sertraline 50 MG Tablet 25 MG GT (09:50)
[2022-06-11 13:09] VITALS: BMI 19.5
--- NOTE | 2022-06-11 16:55 | PCM.DC.SUM ---
Providers Date of Admission: 05/28/22 Date of Discharge: 06/12/22 Primary Care Physician: Dr. Anderson Crowley MD Consultations 05/30/22 00:31 Consult: Gastroenterology Routine Consulting Provider: [facility] Reason for Consult: PEG CHANGE EMERGENT Consult: No Notified: Yes Date Notified: 06/01/22 Time Notified: 15:14 Method of Notification: Text Method of Consult:: In-Person Comments:: Dr. Mccollum notified 06/01/22 14:36 Consult: Gastroenterology Routine Consulting Provider: [facility] Reason for Consult: leaking PEG and colonic pseudoobstruction EMERGENT Consult: No Notified: Yes Date Notified: 06/01/22 Time Notified: 14:36 Method of Notification: Text Reason For Visit: STROKE Diagnosis Discharge Diagnosis (1) Debility: Status: Acute Code(s): R53.81 - Other malaise Plan: Continue therapy in a SNF. He is still too weak to return home by himself and he is still losing weight despite tolerating tube feeds. (2) Acute cerebrovascular accident (CVA) due to ischemia: Status: Acute Code(s): I63.9 - Cerebral infarction, unspecified Plan: Doing well in therapy but, not yet strong enough to return home alone. Need to see the weight start going up and not down. Continue to monitor daily weights and I&O. Caloric intake was increased on 06/09/22 and on 06/11/22 his wt is up to 138 lbs. (3) Orthostatic hypotension: Status: Inactive Code(s): I95.1 - Orthostatic hypotension (4) Urinary retention: Status: Acute Code(s): R33.9 - Retention of urine, unspecified Plan: Intermittently retains and will continue teaching how to self cath in the event that he needs to do this on occasion after returning home. He has not had a PVR > 250 since 06/09/22 and he is off Flomax and Doxazosin due to the severe orthostatic hypotension. (5) Malnutrition: Status: Acute Code(s): E46 - Unspecified protein-calorie malnutrition Plan: Calories increased 06/09/22. Appreciate input from the vice president of instruction. wt finally went up to 138 on 06/11/22. Tolerating TF with no residuals and he is having regular BM's. (6) Acute on chronic renal failure: Status: Resolved Code(s): N17.9 - Acute kidney failure, unspecified; N18.9 - Chronic kidney disease, unspecified Plan: Due to dehydration. Creat is now stable at 1.88. (7) Polycystic kidney disease: Status: Suspected Code(s): Q61.3 - Polycystic kidney, unspecified Plan: Multiple cysts in both kidneys and has stage 3b CRF. (8) Iron deficiency anemia: Status: Chronic Code(s): D50.9 - Iron deficiency anemia, unspecified Plan: He received IV iron supplementation on rehab and the HGB is 9.8, up from 7.6 when admitted to rehab. (9) BPH (benign prostatic hypertrophy): Status: Inactive Code(s): N40.0 - Benign prostatic hyperplasia without lower urinary tract symptoms Qualifiers: Qualified Code(s): R39.12 - Poor urinary stream Plan: Does not tolerate pharmacologic tx due to severe symptomatic orthostatic hypotension, even without Flomax or doxazosin. Midodrine had been discontinued at [facility] but, had to be restarted while in rehab. We are in the process of increasing the dose to reach a BP standing that he can tolerate without lightheadedness/wobbliness. (10) Hyperphosphatemia associated with renal failure: Status: Resolved Code(s): E83.39 - Other disorders of phosphorus metabolism; N19 - Unspecified kidney failure Plan: Resolved with transition to nepro. (11) Hyperkalemia: Status: Resolved Code(s): E87.5 - Hyperkalemia Plan: Resolved with transition to nepro TF. (12) Acute pseudo-obstruction of colon: Status: Resolved Code(s): K59.81 - [place] syndrome Plan: Much improved from admission. The eructation and flatulence are less and the abd is only mildly distended. Denies abd pain, N/V. He is having regular BM's now but, they are semiformed due to TF. (13) Ureteral stent present: Status: Acute Code(s): Z96.0 - Presence of urogenital implants Plan: Left ureter due to stone impacted at the L UPJ causing hydronephrosis. He also has more stones in the left kidney and he will need to follow up with urology. (14) Presence of externally removable percutaneous endoscopic gastrostomy (PEG) tube: Status: Acute Code(s): Z93.1 - Gastrostomy status Plan: The tube was leaking at the time of transfer to [facility] and had to be replaced by Dr. Ruggiero. Gastric mucosa and first portion of the duodenum looked good at the time of the procedure. (15) History of malignant neoplasm of larynx: Status: Inactive Code(s): Z85.21 - Personal history of malignant neoplasm of larynx Plan: He is cancer free at the present time. Has severe fibrosis of the esophagus and aspirates. He will be PEG dependent for the remainder of his life but, he is having some comfort food when with the ST. (16) Acute on chronic blood loss anemia: Status: Chronic Code(s): D62 - Acute posthemorrhagic anemia Plan: More likely than not due to the gross hematuria needed to nephrolithiasis and a blocked left ureter. He was severely iron deficient and unable to build new red blood cells. He has been treated with iron sucrose while in rehab and since he is chronically on a PPI for acid reflux and esophageal fibrosis he may need parenteral iron supplementation going forward. Will likely need a referral to heme/onc to treat. (17) Silent aspiration: Status: Inactive Code(s): T17.900A - Unspecified foreign body in respiratory tract, part unspecified causing asphyxiation, initial encounter Plan: All textures. (18) Spinal cord stimulator status: Status: Inactive Code(s): Z96.89 - Presence of other specified functional implants Plan: Placed to tx chronic back pain with radicular pain in the legs. 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 Has had no signs of Serotonin S. while in rehab. (22) COPD (chronic obstructive pulmonary disease): Status: Inactive Code(s): J44.9 - Chronic obstructive pulmonary disease, unspecified Plan: Stable. Lungs are clear to auscultation but diminished upon discharge from rehab. (23) Nephrolithiasis: Status: Inactive Code(s): N20.0 - Calculus of kidney (24) Asymmetric septal hypertrophy: Status: Inactive Code(s): I42.2 - Other hypertrophic cardiomyopathy (25) Hypertension: Status: Inactive Code(s): I10 - Essential (primary) hypertension Plan: with orthostatic hypotension. May need to tolerate a mildy increased systolic when lying flat in order to prevent symptomatic hypotension. He will have the HOB elevated on blocks at home to help prevent the elevated BP whenj supine. (26) Neuropathic pain: Status: Inactive Code(s): M79.2 - Neuralgia and neuritis, unspecified Plan: Tolerable. Plan SNF([facility]U) [facility] [place] from [facility]hab for additional therapy for strengthening prior to returning home. He is making good progress in therapy but, he has been malnourished for quite some time and up to 06/11/22 his wt was still decreasing. The vice president of instruction is following his weights and adjusting his caloric intake to have him gain weight/muscle at a healthy rate. Medications at Discharge Home Medications albuterol sulfate 90 mcg/actuation aerosol inhaler 2 puff inhalation Q6H PRN PRN Sob &/Or Wheezing 10/01/19 acetaminophen 500 mg tablet 1,000 mg PO Q6H PRN Pain Score 1-5/10 10/31/19 atorvastatin 40 mg tablet 80 mg feeding tube QHS cholesterol 12/08/21 gabapentin 300 mg/6 mL (6 mL) oral solution 300 mg feeding tube TID Check with primary doctor 05/28/22 guar gum 1 tbsp feeding tube BID bowel mobility 05/28/22 mirtazapine 15 mg tablet 15 mg feeding tube QHS sleep/appetite 05/28/22 sertraline 25 mg tablet 25 mg feeding tube DAILY depression 05/28/22 Arthritis Pain Compound 0 click topical BID pain 06/11/22 aspirin 81 mg chewable tablet 324 mg G-tube DAILYCM blood thinner 06/11/22 bisacodyl 10 mg rectal suppository 10 mg ID .PRN X 1 PRN Constipation #0 ea 06/11/22 fluticasone 232 mcg-salmeterol 14 mcg/actuation breath activated powdr 1 inh inhalation Q12 shortness of breath/wheezing 06/11/22 guar gum 1 tbsp feeding tube BID ##0 06/11/22 lansoprazole 15 mg capsule,delayed release 30 mg PO DAILY acid 06/11/22 magnesium hydroxide 400 mg/5 mL oral suspension 30 ml PO .PRN X 1 PRN Constipation #0 mL 06/11/22 menthol 0.44 %-zinc oxide 20.6 % topical ointment (Calmoseptine) 1 applic topical BID skin protectant 06/11/22 midodrine 5 mg tablet 5 mg G-tube TID BP 06/11/22 nut.tx.imp.renal fxn,lac-reduc 0.08 gram-1.8 kcal/mL oral liquid (Nepro Carb Steady) 250 ml G-tube 5X/DAY supplement 06/11/22 nystatin 100,000 unit/gram topical powder (Nyamyc) 1 applic topical BID redness/moisture 06/11/22 nystatin-triamcinolone 100,000 unit/g-0.1 % topical cream 1 applic topical BID@0600,2200 topical treatment 06/11/22 oxycodone 5 mg tablet 5 mg PO Q4H PRN PRN Pain Score 1-10 #0 tabs 06/11/22 simethicone 40 mg/0.6 mL oral drops,suspension (Infants Simethicone) 80 mg G-tube Q6 digestion 06/11/22 zolpidem 5 mg tablet 5 mg PO QHS PRN PRN Insomnia #1 TAB 06/11/22 Hospital Course Procedures Peg tube placement (06/02/22 - replacement of perforated PEG tube by Dr. 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 (treated with chem/radiation at [facility] [id number]), orthostatic hypotension with suspected autonomic neuropathy, esophageal stricture (dilated in 2018), GERD, chronic renal failure stage III, BPH, HLD, tobacco dependence in remission, remote TIA, esophageal stenosis with Dilation on 05/07/22 at [facility] (dual antiplatelet agents were held for the EGD and dilation), nephrolithiasis with history of lithotripsy, peripheral neuropathy secondary to chemotherapy, chronic macrocytic anemia (with a normal B12, TSH and folate), chronic rhinitis, COPD, osteoarthritis, pulmonary nodule, depression, PVD, COPD, AAA, upper left ventricular septal hypertrophy, DDD with hx of lumbar laminectomies and fusion at the [facility] in in September of 2018 who presented to the ED at [facility] on 05/08/22 via ambulance c/o left side paresthesias and weakness with inability to ambulate.? NIH at presentation was 14.? A noncontrast CT brain showed chronic involutional changes of the brain only.? CTA of the head and neck showed left A1 segment occlusion, moderate stenosis of the right internal carotid artery stent and possible focal dissection distal to the stent, moderate stenosis of the left internal carotid artery and occlusion/near occlusion of the proximal right vertebral artery with reconstitution distally.? 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 TPA was administered and the patient was transferred to [facility].? NIHSS at [facility] was 4.? He had a few complications while at [facility] which delayed DC to rehab.? He was evaluated by ENT to evaluate a mucosal nodule on the epiglottis seen during the esophageal dilatation he recently had at [facility]. He underwent nasopharyngoscopy and laryngoscopy which showed a normal base of the tongue without lesion or mass, lateral and posterior pharyngeal meraz appeared normal, he had postradiation erythema but no epiglottic lesions were noted. He was diagnosed with a nonfunctional larynx and PEG tube was recommended and this was inserted while at [facility]. He also developed Enterococcus faecalis bacteremia and UTI and was treated with vancomycin for 2 weeks. He was seen by urology for moderate left hydronephrosis with left distal ureteral stone and a left ureteral stent was placed. He was evaluated and followed while at [facility] by PT/OT/ST.? Recommendation was made for acute rehab at DC from [facility].? He was transferred to the acute inpt rehab unit at [facility] on 05/28/22 for 3 hours of therapy daily to restore function at or near his level prior to the stroke.? Shortly after admission to rehab a hole was discovered in the PEG tube causing leakage. Dr. Temple friend was consulted and the patient was taken to the endoscopy suite on 06/02/2022 for replacement of the PEG tube. Endoscopy revealed 1 benign appearing, intrinsic stenosis of the esophagus found 18 to 19 cm from the incisors. The stenosis was severe and measured 2 mm x 2 cm. The stenotic area was dilated. Following dilation the endoscope was reinserted and showed complete resolution of the luminal narrowing. The upper third of the esophagus, middle third of the esophagus and lower third of the esophagus were found to be normal. While in rehab he was seen by the dietitian. He continued to lose weight despite TF and calories were increased until finally things stabilized prior to DC to TCU. High potassiums were a recurrent problem and he required hydration and Kayexalate to bring the potassium down on a few occasions. The TF was changed to Nepro and potassium was WNL prior to DC. While at [facility] midodrine he takes for orthostatic hypotension was stopped and he was severely orthostatic while on rehab. The FENA was not consistent with dehydration and hydrating him aggressively did not improved the orthostatic hypotension. He was very lightheaded at times and in fact near syncopal. He was restarted on Midodrine and the dose was adjusted to resolve his lightheadedness when sitting and standing. Maddi was very weak at presentation to rehab. He lives by himself and we did not feel he was ready to DC home at the conclusion of his time on Rehab. He was transferred to TCU for additional therapy prior to returning home. Physical Exam Const alert General Appearance: cooperative HEENT normocephalic Eyes PERRL and EOMs intact bilaterally Neck supple, no JVD and no carotid bruits Resp normal respiratory effort, normal air movement and clear to auscultation bilaterally Cardio regular rate and regular rhythm GI normal to inspection, nondistended, normoactive bowel sounds, non-tender and non-distended GI Narrative: PEG present. Extremity normal capillary refill General Extremity: Negative for edema Skin no rashes or lesions noted General Skin Exam: no breakdown Psych affect normal Appearance: appropriate Medical Records Data Medical Nutrition Assessment Dietitian: Malnutrition Criteria Met Start: 05/28/22 15:25 Freq: Status: Active Protocol: Document 06/11/22 14:40 LO (Rec: 06/11/22 14:41 [id number]) Nutrition Malnutrition Evidence of Malnutrition Exists Yes Malnutrition (severe): Chronic Evidenced By Suboptimal Energy Intake ( Severe),Weight Loss (Severe), Physical Changes (Severe) Clinical Problem Chronic Disease or Condition Related Malnutrition Etiology chronic, severe malnutrition related to inadequate energy intake d/t swallowing difficulties Signs/Symptoms as evidenced by estimated PO intake meeting <75% of estimated energy needs >3 months; unintentional wt loss of ~12.8kg/17% x ~6 months; obvious, severe muscle wasting fat loss evident in orbital, clavicle, acromion, and temporal areas per physical exam; BMI 18.5 Status Active Problem Recommendation Dietitian Recommendations/Changes 1. Via PEG- Nepro bolus feeds 250mL 5x/day with 100mL H2O flush before and after each bolus to provide 2212 calories , 101 g protein. Will continue w/ 100mL H2O flush before and after each bolus PLUS 200mL H2O flush every 4 hours to provide ~3109mL total fluid per day (909 water from TF, 1000mL from TF flushes, 1200mL additional flush). 2. NPO w/ pleasure PO feeding per [employer]. Tube feeds currently meeting 100% estimated energy needs. 3. Continue daily wts. Weight / BMI Weight Weight: 138 lb 0.15 oz Body Mass Index (BMI) 19.5 ABG / Lab / Microbiology Data Result Diagrams: 06/08/22 05:20 06/08/22 05:20 Microbiology: Microbiology 06/11/22 06:35 Nasal Secretion SARS-CoV-2 Antigen (Rapid) - Final 05/30/22 05:31 Urine Catheter - [place] Urine Culture - Final Culture exhibits no growth. Meaningful Use Info Meaningful Use Diagnoses (Choose all that apply): Ischemic CVA CVA Therapy Assessed for PT,OT and/or ST?: Yes Ischemic Stroke Antithrombotic order at d/c?: Yes Dx of Atrial fib/flutter?: No Anticoagulant at discharge?: No Reason anticoagulant not ordered: Procedure not Indicated Statins at discharge?: Yes Primary Dx Acute Ischemic CVA?: Yes IV tPA ordered during stay?: No Reason IV t-PA not ordered: Treatment not Indicated (He had TPA in the ED. ) Discharge Plan Admission Admit Date/Time: 05/28/22 14:05 Primary Reason for Your Visit: post stroke debility Attending Provider: Willa Mccollum Primary Care Provider: Anderson Crowley Consulting Providers: Trevor Ruggiero Discharge Orders/Prescriptions Prescriptions: New magnesium hydroxide 400 mg/5 mL Suspension 30 ml PO .PRN X 1 PRN (Reason: Constipation) Qty: 0 0RF bisacodyl 10 mg Suppository 10 mg ID .PRN X 1 PRN (Reason: Constipation) Qty: 0 0RF Guar Gum 1 tbsp feeding tube BID Qty: 0 0RF zolpidem 5 mg Tablet 5 mg PO QHS PRN PRN (Reason: Insomnia) Qty: 1 0RF oxycodone 5 mg Tablet 5 mg PO Q4H PRN PRN (Reason: Pain Score 1-10) Qty: 0 0RF Continued albuterol sulfate 1 INHALER inhaler 2 puff inhalation Q6H PRN PRN (Reason: Sob &/Or Wheezing) acetaminophen 500 MG tablet 1,000 mg PO Q6H PRN (Reason: Pain Score 1-5/10) 0RF atorvastatin 40 mg Tablet 80 mg feeding tube QHS sertraline 25 mg Tablet 25 mg feeding tube DAILY gabapentin 300 mg/6 mL (6 mL) Solution 300 mg feeding tube TID mirtazapine 15 MG tablet 15 mg feeding tube QHS Discontinued midodrine 2.5 MG tablet 2.5 mg PO BID ascorbic acid (vitamin C) 500 MG tablet 1,000 mg PO DAILY@0800 B-complex with vitamin C 1 CAPSULE capsule 1 cap PO DAILYCM vitamin E (dl, acetate) 400 UNITS capsule 400 units PO DAILYCM tamsulosin 0.4 MG capsule 0.4 mg PO BID@0830,1730 Qty: 60 0RF lisinopril 10 mg Tablet 10 mg PO DAILY aspirin 81 mg Capsule 325 mg feeding tube DAILY oxycodone-acetaminophen [Percocet] 5-325 mg tablet 1 tab PO Q6H PRN (Reason: pain) 5 Days Qty: 15 0RF oxycodone 5 mg tablet 5 mg PO Q6H PRN (Reason: pain) 3 Days Qty: 10 0RF pantoprazole [Protonix] 40 mg Tablet,Delayed Release (Dr/Ec) 40 mg PO DAILY doxazosin [Cardura] 2 mg Tablet 2 mg feeding tube QHS fluticasone furoate-vilanterol 200-25 mcg/dose Blister With Device 1 inh INHALATION DAILY No Action guar gum Packet 1 tbsp feeding tube BID Rx Instructions: mix into at least 4 oz water or juice before administering Arthritis Pain Compound 0 click topical BID midodrine 5 mg tablet 5 mg G-tube TID nystatin-triamcinolone 100,000-0.1 unit/g-% cream 1 applic topical BID@0600,2200 Protocol: *Topical Application Instructions APPLICATION INSTRUCTIONS: penile foreskin redness lansoprazole 15 mg capsule,delayed release(DR/EC) 30 mg PO DAILY simethicone [Infants Simethicone] 40 mg/0.6 mL drops,suspension 80 mg G-tube Q6 aspirin 81 mg tablet,chewable 324 mg G-tube DAILYCM nystatin [Nyamyc] 100,000 unit/gram powder 1 applic topical BID Protocol: *Topical Application Instructions APPLICATION INSTRUCTIONS: groin Nepro Carb Steady 0.08 gram-1.8 kcal/mL liquid 250 ml G-tube 5X/DAY menthol-zinc oxide [Calmoseptine] 0.44-20.6 % ointment 1 applic topical BID Protocol: *Topical Application Instructions APPLICATION INSTRUCTIONS: apply to mona-rectal area fluticasone propion-salmeterol 232-14 mcg/actuation aerosol powdr breath activated 1 inh inhalation Q12 Referrals / Follow Up: [id number] [Other] - 06/23/22 2:[address] Radha Lewis [Other] - 07/09/22 8:45 am Anderson Crowley MD [Primary Care Provider] - Disposition Disposition (needs filled in before D/C Order can be placed): Long Term Facility Charges/Coding Visit Charges Inpatient E&M: 10545 Disch Hosp
[2022-06-11 17:00] VITALS: BP 100/64; BP 133/72; BP 148/80; PULSE 72; PULSE 85; PULSE 95
--- NOTE | 2022-06-11 17:27 | TREXTCAR_ITS ---
Diet Diet Order/Speech Therapy: 05/28/22 14:49 Diet: Nothing Per Oral Tube Feed: Nepro 250 ml 5 X's a day. Routine Orders/Code Status Enema Type: Fleetz Enema Frequency: Daily PRN Suppository Type: Dulcolax 10mg Suppository Frequency: Daily PRN Change Zapata Catheter: No Zapata cath. He is being taught how to self catheterize. O2 Liters per Minute: 1-2 O2 Frequency: PRN Keep PO Greater than or Equal to (%): 90 Code Status: DNRCC (No intubation) Wound(s) mid abd: Wound Type: Surgical Incision Therapies Weight Bearing: Full weight bearing Extremity Affected:: Left Lower (and the left upper) Problem/Diagnosis (1) Debility: Status: Acute Code(s): R53.81 - Other malaise Plan: Continue therapy in a SNF. He is still too weak to return home by himself and he is still losing weight despite tolerating tube feeds. (2) Acute cerebrovascular accident (CVA) due to ischemia: Status: Acute Code(s): I63.9 - Cerebral infarction, unspecified Plan: Doing well in therapy but, not yet strong enough to return home alone. Need to see the weight start going up and not down. Continue to monitor daily weights and I&O. Caloric intake was increased on 06/09/22 and on 06/11/22 his wt is up to 138 lbs. Comment: R occipital lobe due to large vessel disease. DAPT had been on hold for 2 weeks in preparation for EGD/esophageal dilation at [facility] (3) Orthostatic hypotension: Status: Inactive Code(s): I95.1 - Orthostatic hypotension Plan: BP standing on 06/11/22 is 100 systolic and he is asymptomatic - very mildly symptomatic. Will continue 5 mg TID. When the systolic BP standing is 90 or greater he is able to tolerate the drop without getting wobbly and presyncopal Comment: Midodrine has been discontinued at [facility] in May 2022 after CVA (4) Urinary retention: Status: Acute Code(s): R33.9 - Retention of urine, unspecified Plan: Intermittently retains and will continue teaching how to self cath in the event that he needs to do this on occasion after returning home. He has not had a PVR > 250 since 06/09/22 and he is off Flomax and Doxazosin due to the severe orthostatic hypotension. Comment: Flomax discontinued at [facility] and he was started on doxazocin so it could be given via the PEG (5) Malnutrition: Status: Acute Code(s): E46 - Unspecified protein-calorie malnutrition Plan: Calories increased 06/09/22. Appreciate input from the sales and events coordinator. wt finally monica t up to 138 on 06/11/22. Tolerating TF with no residuals and he is having regular BM's. (6) Acute on chronic renal failure: Status: Resolved Code(s): N17.9 - Acute kidney failure, unspecified; N18.9 - Chronic kidney disease, unspecified Plan: Due to dehydration. Creat is now stable at 1.88. (7) Polycystic kidney disease: Status: Suspected Code(s): Q61.3 - Polycystic kidney, unspecified Plan: Multiple cysts in both kidneys and has stage 3b CRF. (8) Iron deficiency anemia: Status: Chronic Code(s): D50.9 - Iron deficiency anemia, unspecified Plan: He received IV iron supplementation on rehab and the HGB is 9.8, up from 7.6 when admitted to rehab. (9) BPH (benign prostatic hypertrophy): Status: Acute Code(s): N40.0 - Benign prostatic hyperplasia without lower urinary tract symptoms Plan: Does not tolerate pharmacologic tx due to severe symptomatic orthostatic hypotension, even without Flomax or doxazosin. Midodrine had been discontinued at [facility] but, had to be restarted while in rehab. We are in the process of increasing the dose to reach a BP standing that he can tolerate without lightheadedness/wobbliness. (10) Hyperphosphatemia associated with renal failure: Status: Resolved Code(s): E83.39 - Other disorders of phosphorus metabolism; N19 - Unspecified kidney failure Plan: Resolved with transition to nepro. (11) Hyperkalemia: Status: Resolved Code(s): E87.5 - Hyperkalemia Plan: Resolved with transition to nepro TF. (12) Acute pseudo-obstruction of colon: Status: Resolved Code(s): K59.81 - Marychuy syndrome Plan: Much improved from admission. The eructation and flatulence are less and the abd is only mildly distended. Denies abd pain, N/V. He is having regular BM's now but, they are semiformed due to TF. (13) Ureteral stent present: Status: Acute Code(s): Z96.0 - Presence of urogenital implants Plan: Left ureter due to stone impacted at the L UPJ causing hydronephrosis. He also has more stones in the left kidney and he will need to follow up with urology. Comment: Inserted at [facility] May 2022 for stone obstructing at UPJ (14) Presence of externally removable percutaneous endoscopic gastrostomy (PEG) tube: Status: Acute Code(s): Z93.1 - Gastrostomy status Plan: The tube was leaking at the time of transfer to [facility] and had to be replaced by Dr. Ruggiero. Gastric mucosa and first portion of the duodenum looked good at the time of the procedure. Comment: placed 05/22/22 at [facility] for severe oropharyngeal dysphagia with non- functional larynx (15) History of malignant neoplasm of larynx: Status: Acute Code(s): Z85.21 - Personal history of malignant neoplasm of larynx Plan: He is cancer free at the present time. Has severe fibrosis of the esophagus and aspirates. He will be PEG dependent for the remainder of his life but, he is having some comfort food when with the ST. Comment: Treated in 2008 with chemo/radiation (16) Acute on chronic blood loss anemia: Status: Chronic Code(s): D62 - Acute posthemorrhagic anemia Plan: More likely than not due to the gross hematuria needed to nephrolithiasis and a blocked left ureter. He was severely iron deficient and unable to build new red blood cells. He has been treated with iron sucrose while in rehab and since he is chronically on a PPI for acid reflux and esophageal fibrosis he may need parenteral iron supplementation going forward. Will likely need a referral to heme/onc to treat. Comment: Due to hematuria from kidney stone impacted at the left UPJ with hydronephrosis and subsequent stet placement (17) Silent aspiration: Status: Acute Code(s): T17.900A - Unspecified foreign body in respiratory tract, part unspecified causing asphyxiation, initial encounter Plan: All textures. (18) Spinal cord stimulator status: Status: Acute Code(s): Z96.89 - Presence of other specified functional implants Plan: Placed to tx chronic back pain with radicular pain in the legs. Comment: model # [id number] ofr stimulator, [id number] for leads - 2 leads. Placed December 2021 at [facility] (19) Restenosis of arterial stent: Status: Acute Code(s): T82.858A - Stenosis of other vascular prosthetic devices, implants and grafts, initial encounter Comment: R ICA stent - 50-60% (20) GERD (gastroesophageal reflux disease): Status: Chronic Code(s): K21.9 - Gastro-esophageal reflux disease without esophagitis (21) Depression: Status: Chronic Code(s): F32.9 - Major depressive disorder, single episode, unspecified Plan: Chronically on Remeron 15 mg nightly. 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 Has had no signs of Serotonin S. while in rehab. Comment: LT Remeron......sertraline 25 mg recently added at [facility] by Psychiatry (22) COPD (chronic obstructive pulmonary disease): Status: Chronic Code(s): J44.9 - Chronic obstructive pulmonary disease, unspecified Plan: Stable. Lungs are clear to auscultation but diminished upon discharge from rehab. Comment: saw Dr. Sterling once and PFT's that showed severe obstruction with 18% reversal with bronchodilator (23) Nephrolithiasis: Status: Chronic Code(s): N20.0 - Calculus of kidney (24) Asymmetric septal hypertrophy: Status: Chronic Code(s): I42.2 - Other hypertrophic cardiomyopathy Comment: Moderate upper septal left ventricular hypertrophy (25) Hypertension: Status: Chronic Code(s): I10 - Essential (primary) hypertension Plan: with orthostatic hypotension. May need to tolerate a mildy increased systolic when lying flat in order to prevent symptomatic hypotension. He will have the HOB elevated on blocks at home to help prevent the elevated BP whenj supine. (26) Neuropathic pain: Status: Chronic Code(s): M79.2 - Neuralgia and neuritis, unspecified Plan: Tolerable. Plan SNF(TCU) at [place] from rehab for additional therapy for strengthening prior to returning home. He is making good progress in therapy but, he has been malnourished for quite some time and up to 06/11/22 his wt was still decreasing. The sales and events coordinator is following his weights and adjusting his caloric intake to have him gain weight/muscle at a healthy rate. Allergies/Procedures Done in Hospital Allergies mold Allergy (Verified 05/08/22 17:10) NEEDS FOLLOW-UP I don't know house dust Adverse Reaction (Verified 05/08/22 17:10) SNEEZING morphine Adverse Reaction (Verified 05/08/22 17:10) Vomiting poison kayleen extract Adverse Reaction (Verified 05/08/22 17:10) Rash Procedures: Peg tube placement (The tube was repleaced by Dr. Ruggiero on 06/02/2022 because it was cracked and leaking.) Type of Care/Length of Stay Estimated LOS: Convalescent Care Less Than 30 days Type of Care Needed: Skilled Rehab Potential: Good Prognosis: Good Additional Orders/Day of Discharge Additional Orders: He has severe orthostatic hypotension and Midodrine is being adjusted to keep the BP standing high enough so that he does not feel wobbly and presyncopal. Please check orthostatic vital signs daily for 5 days. H&P will serve as current which was dated: 05/29/22 Day of Discharge: 06/12/22 Dietary and Speech Recommendations Dietitian Recommendations/Changes: 1. Via PEG- Nepro bolus feeds 250mL 5x/day with 100mL H2O flush before and after each bolus to provide 2212 calories, 101 g protein. Will continue w/ 100mL H2O flush before and after each bolus PLUS 200mL H2O flush every 4 hours to provide ~3109mL total fluid per day (909 water from TF, 1000mL from TF flushes, 1200mL additional flush). 2. NPO w/ pleasure PO feeding per [employer]. Tube feeds currently meeting 100% estimated energy needs. 3. Continue daily wts. Follow Up Care Please follow up with your Primary Care Physician in: Following DC from TCU Discharge Plan Admission Admit Date/Time: 05/28/22 14:05 Primary Reason for Your Visit: post stroke debility Attending Provider: Willa Mccollum Primary Care Provider: Anderson Crowley Consulting Providers: Trevor Ruggiero Discharge Orders/Prescriptions Prescriptions: New aspirin 81 mg Tablet,Chewable 324 mg G-tube DAILYCM Qty: 0 0RF fluticasone propion-salmeterol 232-14 mcg/actuation Aerosol Powdr Breath Activated 1 inh inhalation Q12 Qty: 0 0RF Arthritis Pain Compound 0 click topical BID Qty: 0 0RF midodrine 5 mg Tablet 5 mg G-tube TID Qty: 0 0RF magnesium hydroxide 400 mg/5 mL Suspension 30 ml PO .PRN X 1 PRN (Reason: Constipation) Qty: 0 0RF bisacodyl 10 mg Suppository 10 mg [place] .PRN X 1 PRN (Reason: Constipation) Qty: 0 0RF nystatin-triamcinolone 100,000-0.1 unit/g-% Cream 1 applic topical BID@0600,2200 Qty: 0 0RF Protocol: *Topical Application Instructions APPLICATION INSTRUCTIONS: penile foreskin redness lansoprazole 15 mg Capsule,Delayed Release(Dr/Ec) 30 mg PO DAILY Qty: 0 0RF nystatin [Nyamyc] 100,000 unit/gram Powder 1 applic topical BID Qty: 0 0RF Protocol: *Topical Application Instructions APPLICATION INSTRUCTIONS: groin Nepro Carb Steady 0.08 gram-1.8 kcal/mL Liquid 250 ml G-tube 5X/DAY Qty: 0 0RF menthol-zinc oxide [Calmoseptine] 0.44-20.6 % Ointment 1 applic topical BID Qty: 0 0RF Protocol: *Topical Application Instructions APPLICATION INSTRUCTIONS: apply to mona-rectal area Guar Gum 1 tbsp feeding tube BID Qty: 0 0RF simethicone [Infants Simethicone] 40 mg/0.6 mL Drops,Suspension 80 mg G-tube Q6 Qty: 0 0RF zolpidem 5 mg Tablet 5 mg PO QHS PRN PRN (Reason: Insomnia) Qty: 1 0RF oxycodone 5 mg Tablet 5 mg PO Q4H PRN PRN (Reason: Pain Score 1-10) Qty: 0 0RF Continued albuterol sulfate 1 INHALER inhaler 2 puff inhalation Q6H PRN PRN (Reason: Sob &/Or Wheezing) acetaminophen 500 MG tablet 1,000 mg PO Q6H PRN (Reason: Pain Score 1-5/10) 0RF atorvastatin 40 mg Tablet 80 mg feeding tube QHS sertraline 25 mg Tablet 25 mg feeding tube DAILY gabapentin 300 mg/6 mL (6 mL) Solution 300 mg feeding tube TID mirtazapine 15 MG tablet 15 mg feeding tube QHS Discontinued midodrine 2.5 MG tablet 2.5 mg PO BID ascorbic acid (vitamin C) 500 MG tablet 1,000 mg PO DAILY@0800 B-complex with vitamin C 1 CAPSULE capsule 1 cap PO DAILYCM vitamin E (dl, acetate) 400 UNITS capsule 400 units PO DAILYCM tamsulosin 0.4 MG capsule 0.4 mg PO BID@0830,1730 Qty: 60 0RF lisinopril 10 mg Tablet 10 mg PO DAILY aspirin 81 mg Capsule 325 mg feeding tube DAILY oxycodone-acetaminophen [Percocet] 5-325 mg tablet 1 tab PO Q6H PRN (Reason: pain) 5 Days Qty: 15 0RF oxycodone 5 mg tablet 5 mg PO Q6H PRN (Reason: pain) 3 Days Qty: 10 0RF pantoprazole [Protonix] 40 mg Tablet,Delayed Release (Dr/Ec) 40 mg PO DAILY doxazosin [Cardura] 2 mg Tablet 2 mg feeding tube QHS fluticasone furoate-vilanterol 200-25 mcg/dose Blister With Device 1 inh INHALATION DAILY No Action guar gum Packet 1 tbsp feeding tube DAILY Rx Instructions: mix into at least 4 oz water or juice before administering Referrals / Follow Up: [facility]ne [id number] [Other] - 06/23/22 2:[address] Radha Lewis [Other] - 07/09/22 8:45 am Anderson Crowley MD [Primary Care Provider] - Disposition Disposition (needs filled in before D/C Order can be placed): Shelter Facility (1) BPH (benign prostatic hypertrophy) Qualifiers: Qualified Code(s): R39.12 - Poor urinary stream
== END 2022-06-11 18:21 | disposition skilled nursing facility (03) | DRG 56 ==
PROVIDERS: Internal Medicine Gastroenterology; Admitting Provider Internal Medicine; PCP Family Medicine; Visit Provider Internal Medicine
PROC: 0DJ08ZZ Inspection of Upper Intestinal Tract, Via Natural or Artificial Opening Endoscopic (ICD-10-PCS; CPT 43235; principal; 2022-06-02 16:10)
DX: I69.321 Dysphasia following cerebral infarction (principal); E43 Unspecified severe protein-calorie malnutrition; I42.2 Other hypertrophic cardiomyopathy; D62 Acute posthemorrhagic anemia; N13.6 Pyonephrosis; N17.9 Acute kidney failure, unspecified; Q61.3 Polycystic kidney, unspecified; K94.23 Gastrostomy malfunction; N13.2 Hydronephrosis with renal and ureteral calculous obstruction; Z68.1 Body mass index [BMI] 19.9 or less, adult; K22.2 Esophageal obstruction; E83.39 Other disorders of phosphorus metabolism; J44.9 Chronic obstructive pulmonary disease, unspecified; N18.31 Chronic kidney disease, stage 3a; K21.9 Gastro-esophageal reflux disease without esophagitis; K59.81 Ogilvie syndrome; E87.5 Hyperkalemia; I12.9 Hypertensive chronic kidney disease with stage 1 through stage 4 chronic kidney disease, or unspecified chronic kidney disease; Z23 Encounter for immunization; Z87.891 Personal history of nicotine dependence; F32.9 Major depressive disorder, single episode, unspecified; G89.29 Other chronic pain; N40.1 Benign prostatic hyperplasia with lower urinary tract symptoms; R33.8 Other retention of urine; Z92.3 Personal history of irradiation; Z79.899 Other long term (current) drug therapy; Z79.82 Long term (current) use of aspirin; Z79.51 Long term (current) use of inhaled steroids; Z85.21 Personal history of malignant neoplasm of larynx; B95.2 Enterococcus as the cause of diseases classified elsewhere; Z96.82 Presence of neurostimulator; R39.12 Poor urinary stream
CPT/HCPCS: 0134A; 36415; 71046; 74018; 76770; 80048; 80053; 81001; 82040; 82570; 82728; 83540; 83550; 83735; 84100; 84132; 84300; 85025; 85027; 86850; 86900; 86901; 87086; 87426; 91313; 92526; 92610; 93005; 96125; 97110; 97112; 97116; 97162; 97166; 97530; 97535; 97802; 97803; 99251; J7030; A4216; G0463; J2405

== ENCOUNTER 2022-06-11 18:20 | Inpatient (IN) | payer MEDICARE, OTHER, SELFPAY ==
[2022-06-11 20:42] VITALS: BP 140/75; PULSE 84; RESP 16; TEMP 36.8; O2SAT 96; BMI 18.3
--- NOTE | 2022-06-11 20:59 | HP.PCM_ITS ---
HPI - General General Date of Admission: 06/11/22 Date of Service: 06/12/22 Chief Complaint: Here for rehab. HPI Narrative MADDI JAMESON, is a 81 Male with below past medical history who presents with followin05/08/2022 [facility] Emergency Department with left sided weakness, paresthesias, unable to walk. CTA of head/neck showed multiple areas of occlusion/stenosis. TPA given. Transfer to [facility]. E. Faecalis urinary tract infection/bacteremia treated with Vancomycin x 2 weeks, TTE negative vegetation. 05/21/2022 Left ureteral stent for left ureteral stone/left hydronephrosis. 05/22/2022 PEG placed for non-functional larynx. 05/28/2022 Admit to [facility]. 06/01/[address] Ruggiero for cracked PEG tube. Discontinue thomas catheter, Bactrim bid x 5 to 7 days. 06/02/2022 Straight cath for urinary retention. 06/02/2022 Dr. Ruggiero performed EGD/PEG replacement. 06/03/2022 Venofer for iron deficiency anemia. Stop Bactrim. Kayexalate for hyperkalemia. 06/04/2022 Stop Doxazosin. 06/08/2022 Increase Midodrine tid for orthostatic hypotension. 06/11/2022 Admit to TCU with debility, here for rehabilitation, strengthening, p rior to discharge home alone. [facility] Medical History Arthritis Back pain Benign neoplasm of colon Bifascicular bundle branch block BPH (benign prostatic hypertrophy) Cancer Cardiology follow-up encounter Chest pain Chronic cough Former smoker Former smoker Gastric reflux Grade I diastolic dysfunction History of echocardiogram History of hypertension History of pain when walking History of steroid therapy History of stress test Hoarseness Hypertension Injury of head and neck Loss of consciousness Lumbar spinal stenosis Osteoarthritis of left knee Pharyngeal cancer Rhinitis Shortness of breath on exertion Silent aspiration TIA (transient ischemic attack) Wears dentures Wears glasses Home Medications albuterol sulfate 90 mcg/actuation aerosol inhaler 2 puff inhalation Q6H PRN PRN Sob &/Or Wheezing 10/01/19 [History Last Taken Unknown] acetaminophen 500 mg tablet 1,000 mg PO Q6H PRN Pain Score 1-5/10 02/18/20 [Rx Last Taken Unknown] atorvastatin 40 mg tablet 80 mg feeding tube QHS cholesterol 12/08/21 [History Last Taken Unknown] gabapentin 300 mg/6 mL (6 mL) oral solution 300 mg feeding tube TID Check with primary doctor 05/28/22 [History Last Taken Unknown] guar gum 1 tbsp feeding tube BID bowel mobility 05/28/22 [History Last Taken Unknown] mirtazapine 15 mg tablet 15 mg feeding tube QHS sleep/appetite 05/28/22 [History Last Taken Unknown] sertraline 25 mg tablet 25 mg feeding tube DAILY depression 05/28/22 [History Last Taken Unknown] Arthritis Pain Compound 0 click topical BID pain 06/11/22 [History Last Taken Unknown] aspirin 81 mg chewable tablet 324 mg G-tube DAILYCM blood thinner 06/11/22 [History Last Taken Unknown] bisacodyl 10 mg rectal suppository 10 mg IA .PRN X 1 PRN Constipation #0 ea 06/11/22 [Rx Last Taken Unknown] fluticasone 232 mcg-salmeterol 14 mcg/actuation breath activated powdr 1 inh inhalation Q12 shortness of breath/wheezing 06/11/22 [History Last Taken Unknown] guar gum 1 tbsp feeding tube BID ##0 06/11/22 [Rx Last Taken Unknown] lansoprazole 15 mg capsule,delayed release 30 mg PO DAILY acid 06/11/22 [History Last Taken Unknown] magnesium hydroxide 400 mg/5 mL oral suspension 30 ml PO .PRN X 1 PRN Constipation #0 mL 06/11/22 [Rx Last Taken Unknown] menthol 0.44 %-zinc oxide 20.6 % topical ointment (Calmoseptine) 1 applic topical BID skin protectant 06/11/22 [History Last Taken Unknown] midodrine 5 mg tablet 5 mg G-tube TID BP 06/11/22 [History Last Taken Unknown] nut.tx.imp.renal fxn,lac-reduc 0.08 gram-1.8 kcal/mL oral liquid (Nepro Carb Steady) 250 ml G-tube 5X/DAY supplement 06/11/22 [History Last Taken Unknown] nystatin 100,000 unit/gram topical powder (Nyamyc) 1 applic topical BID redness/moisture 06/11/22 [History Last Taken Unknown] nystatin-triamcinolone 100,000 unit/g-0.1 % topical cream 1 applic topical BID@0600,2200 topical treatment 06/11/22 [History Last Taken Unknown] oxycodone 5 mg tablet 5 mg PO Q4H PRN PRN Pain Score 1-10 #0 tabs 06/11/22 [Rx Last Taken Unknown] simethicone 40 mg/0.6 mL oral drops,suspension (Infants Simethicone) 80 mg G- tube Q6 digestion 06/11/22 [History Last Taken Unknown] zolpidem 5 mg tablet 5 mg PO QHS PRN PRN Insomnia #1 TAB 06/11/22 [Rx Last Taken Unknown] Allergy/AdvReac Type Severity Reaction Status Date / Time mold Allergy NEEDS Verified 05/08/22 17:10 FOLLOW-UP house dust AdvReac SNEEZING Verified 05/08/22 17:10 morphine AdvReac Vomiting Verified 05/08/22 17:10 poison kayleen extract AdvReac Rash Verified 05/08/22 17:10 Family History Mother CAD (coronary artery disease) Brother COPD (chronic obstructive pulmonary disease) Surgical History H/O hernia repair History of cardiac catheterization History of esophageal dilatation History of laminectomy History of tonsillectomy Hx of colonoscopy Internal carotid artery stent present S/P total knee arthroplasty Spinal cord stimulator status Status post insertion of percutaneous endoscopic gastrostomy (PEG) tube Status post total left knee replacement Ureteral stent present Social History household members: none housing: house number of children: 0 current occupational status: retired Smoking Status: Former smoker Smokeless tobacco user: chewing tobacco and other how long ago did patient quit smokin alcohol intake: former substance use type: does not use ROS Constitutional Constitutional: Denies chills, fever(s) or weight gain ENT HEENT: Denies headache(s), nasal congestion or nasal discharge Cardiovascular Cardiovascular: Denies chest pain or palpitations Respiratory/Chest Respiratory/Chest: Denies cough, excessive phlegm production or shortness of breath with exertion Gastrointestinal Gastrointestinal: Denies abdominal pain, nausea or vomiting Genitourinary Genitourinary: Denies dysuria Musculoskeletal Musculoskeletal: Denies joint pain or joint swelling Integumentary Integumentary: Denies rash or wounds Neurologic Neurologic: Denies focal weakness, numbness or tingling Psychiatric Psychiatric: Denies anxiety, auditory hallucinations, depression, homicidal ideation or suicidal ideation Vital Signs Vital Signs Vital Signs: 06/11/22 20:42 Temperature 98.3 F Temperature Source Temporal Pulse Rate 84 Respiratory Rate 16 Blood Pressure 140/75 H Blood Pressure Mean 96 Blood Pressure Source Monitor Blood Pressure Position Sitting Pulse Ox 96 Oxygen Delivery Method Room Air Weight Weight: 62.6 kg Body Mass Index (BMI) 18.3 Physical Exam Const alert General Appearance: cooperative HEENT normocephalic Eyes PERRL and EOMs intact bilaterally Neck supple, no JVD and no carotid bruits Resp normal respiratory effort, normal air movement and clear to auscultation bilaterally Cardio regular rate and regular rhythm GI normal to inspection, nondistended, normoactive bowel sounds, non-tender and non-distended GI Narrative: PEG present. Extremity normal capillary refill General Extremity: Negative for edema Skin no rashes or lesions noted General Skin Exam: no breakdown Psych affect normal Appearance: appropriate Results Lab / Micro Data Result Diagrams: 06/12/22 05:21 06/12/22 05:21 Assessment & Plan Assessment/Plan (1) Debility: (2) Stroke: (3) Bacteremia: (4) Urinary tract infection: (5) Dysphagia: (6) Left ureteral stone: (7) Hydroureter, left: (8) Laryngeal cancer: (9) Orthostatic hypotension: (10) Gastroesophageal reflux disease: (11) Benign prostatic hyperplasia: (12) Hyperlipidemia: (13) Transient ischemic attack: (14) Esophageal stenosis: (15) Chronic obstructive pulmonary disease: (16) Osteoarthritis: (17) Depression: (18) Peripheral vascular disease: (19) Abdominal aortic aneurysm: PLAN: Plan 81 year old male with below past medical history hospitalized for stroke status post TPA, complicated by urinary tract infection/bacteremia, left ureteral stone requiring left ureteral stent, nonfunctional larynx requiring PEG, admitted to , transferred to TCU with debility, here for rehabilitation, strengthening, prior to discharge home alone. * Debility - PT/OT. * Dysphagia - ST. * Pain - Tylenol 1000mg q6h prn pain (1-5), Oxycodone 5mg q4h prn pain (6-10), Arthritis pain compound 3 clicks topical bid. * Bowel - Dulcolax 10mg pr x 1 prn, MOM 30ml po x 1 prn. * Adult immunization - Administer pneumonia vaccine, covid19 vaccine, flu vaccine. * DVT prophylaxis - Hold. * COPD - Advair 232-14 1 puff inhaled q12, Albuterol 2 puffs q6h prn. * Stroke - Aspirin 324mg daily. * Hyperlipidemia - Atorvastatin 80mg qhs. * Neuropathic pain - Gabapentin 300mg tid. * GERD - Lansoprazole 30mg daily. * Orthostatic hypotension - Midodrine 5mg tid. * Insomnia - Mirtazapine 15mg qhs, stable chronic long term care phlebotomist use, GDR not recommended. Zolpidem 5mg qhs prn. * Nutrition - Nepro 250ml 5x/day. * Tinea Corporis - Nystatin powder topical bid. * Yeast Balanitis - Nystatin cream topical bid. * Depression - Sertraline 50mg daily, stable chronic residential use, GDR not recommended. * Gas - Simethicone 80mg q6.
[2022-06-11 21:04] VITALS: PULSE 84; O2SAT 96
[2022-06-11] MEDS: Mirtazapine 15 MG Tablet GT (21:43)
[2022-06-11] MEDS: Nystatin/Triamcin Cream Tube 1 APPLIC TOPICAL (21:43)
[2022-06-11] MEDS: Atorvastatin Calcium 80 MG Tablet GT (21:43)
[2022-06-11] MEDS: Fluticasone/Salmeterol 232-14 Inhaler 1 PUFF INHALATION (21:43)
[2022-06-11] MEDS: Gabapentin 600 MG Tablet 300 MG GT (21:48)
--- NOTE | 2022-06-11 22:00 | NURSING ---
35cc residual noted during HS PEG bolus feeding.
[2022-06-11] MEDS: Midodrine HCl 5 MG Tablet GT (22:03)
[2022-06-11] MEDS: Nepro Liquid 120 ML LIQUID 250 ML PO (22:09)
[2022-06-11] MEDS: Simethicone 40MG/0.6ML Bottle 80 MG GT (23:41)
--- NOTE | 2022-06-12 02:13 | NURSING ---
During HS med pass pt displayed understanding and ability to give self medications and feed supplement through his PEG tube.
[2022-06-12 05:00] VITALS: BP 94/58; PULSE 72; RESP 14; O2SAT 97
[2022-06-12 05:45] LABS: Absolute Lymphocyte Count 0.66 X10^3/uL (0.83-4.51); Absolute Neutrophil Count 6.3 X10^3/uL (2.0-7.7); Basophil# 0.06 X10^3/uL; Basophil% 0.7 % (0-1); Eosinophil# 0.79 X10^3/uL; Eosinophils% 9.2 % (0-5); Hematocrit 28.7 % (40-54); Hemoglobin 8.9 g/dL (13.0-16.5); Lymphocyte # 0.66 X10^3/ul (0.83-4.51); Lymphocyte % 7.7 % (19-41); Mean Corpuscular Hgb 28.4 pg (27.0-32.0); Mean Corpuscular Volume 91.7 fL (80-94); Mean Platelet Vol. 11.9 fl (6.2-12.0); Monocyte# 0.73 X10^3/uL; Monocyte% 8.5 % (0-10); NRBC Flagged by Analyzer 0 % (0-5); Neutrophil # 6.27 X10^3/uL (2.7-7.7); Neutrophil % 72.9 % (47-70); Platelet Count 254 K/mm3 (150-450); RBC Distribution Width CV 16.7 % (11.6-14.6); RBC Distribution Width SD 55.4 fl (35.1-43.9); Red Blood Count 3.13 M/mm3 (4.6-6.2); White Blood Count 8.6 K/mm3 (4.4-11.0)
[2022-06-12] MEDS: Sertraline 50 MG Tablet GT (06:07)
[2022-06-12] MEDS: Gabapentin 300 MG Capsule GT ×3 (06:07→22:35)
[2022-06-12] MEDS: Midodrine HCl 5 MG Tablet GT ×3 (06:07→22:35)
[2022-06-12] MEDS: Simethicone 40MG/0.6ML Bottle 80 MG GT ×4 (06:08→23:14)
[2022-06-12] MEDS: Lansoprazole 15 MG Capsule.DR 30 MG GT (06:08)
[2022-06-12] MEDS: Nystatin/Triamcin Cream Tube 1 APPLIC TOPICAL ×2 (06:08→23:04)
[2022-06-12] MEDS: Fluticasone/Salmeterol 232-14 Inhaler 1 PUFF INHALATION ×2 (06:09→18:01)
[2022-06-12] MEDS: Nystatin Powder 15gm Bottle 1 APPLIC TOPICAL ×2 (06:09→18:01)
[2022-06-12 06:12] LABS: Anion Gap 8 (5-15); BUN 44 mg/dL (7-18); BUN/Creat Ratio 28.2 RATIO (10-20); Calcium,Total 9.4 mg/dL (8.5-10.1); Chloride 105 mmol/L (98-107); Creatinine, Serum 1.56 mg/dL (0.70-1.30); EST Glomerular Filtration Rate 46 mL/min (>60); Est Glom Filt Rate - Afr Amer 55 mL/min (>60); Glucose 98 mg/dL (74-106); Potassium 3.9 mmol/L (3.5-5.1); Sodium Level 139 mmol/L (136-145)
[2022-06-12] MEDS: Nepro Liquid 120 ML LIQUID 250 ML PO ×3 (06:18→14:15)
[2022-06-12 08:58] VITALS: BP 117/65; BP 82/47; BP 87/53; PULSE 74; PULSE 78; PULSE 94
[2022-06-12] MEDS: Aspirin 81 MG TAB.CHEW 324 MG GT (10:12)
[2022-06-12] MEDS: Tuberculin,Purif.prot.deriv. 50 TU/ML Vial 0.1 ML ID (10:13)
[2022-06-12] MEDS: FLU VACC QS2022-23(6MOS UP)/PF 60 MCG/0.5 ML SYRINGE IM (10:26)
--- NOTE | 2022-06-12 14:54 | PHA.CONS_ITS ---
TCU RX Drug Regimen Review Subjective: TCU Admission. 81 YOF presented to the ER with left sided weakness, paresthesias, unable to walk. Resident given tPA, transferred to [facility] where he was then diagnosed with E. Faecalis urinary tract infection/bacteremia and treated with Vancomycin x 2 weeks. Admitted to [facility] with cracked PEG tube, Dr. Ruggiero performed EGD/PEG replacement. Midodrine started for orthostatic hypotension. Admitted to TCU with debility for strengthening and rehabilitation. Objective: Allergies mold Allergy (Verified 05/08/22 17:10) NEEDS FOLLOW-UP I don't know house dust Adverse Reaction (Verified 05/08/22 17:10) SNEEZING morphine Adverse Reaction (Verified 05/08/22 17:10) Vomiting poison kayleen extract Adverse Reaction (Verified 05/08/22 17:10) Rash Current Medications Generic Name Dose Route Start Last Admin Trade Name Freq PRN Reason Stop Dose Admin Acetaminophen 1,000 mg 06/11/22 18:49 Acetaminophen 500 Mg Tablet PO Q6H PRN PRN Pain Score 1-5/10 Albuterol Sulfate 2 puff 06/11/22 18:49 Albuterol Sulfate 8 Gm Inhaler (60 Puffs) INHALATION Q6H PRN PRN Sob &/Or Wheezing Aspirin 324 mg 06/12/22 08:00 06/12/22 10:12 Aspirin 81 Mg Tab.Chew GT 324 mg DAILYCM KEENAN Administration Atorvastatin Calcium 80 mg 06/11/22 22:00 06/11/22 21:43 Atorvastatin Calcium 80 Mg Tablet GT 80 mg QHS KEENAN Administration Bisacodyl 10 mg 06/11/22 18:49 Bisacodyl 10 Mg Suppository RC .PRN X 1 PRN Constipation Compound Med 3 click 06/12/22 06:00 06/12/22 06:12 Arthritis Pain Compound 60 Click Tube TOPICAL Not Given BID KEENAN Enteral Nutritional Formula 250 ml 06/12/22 14:00 06/12/22 14:53 Nepro Tube Feed 1,000 Ml Liquid GT Not Given 5X/DAY KEENAN Gabapentin 300 mg 06/12/22 06:00 06/12/22 14:15 Gabapentin 300 Mg Capsule GT 300 mg TID KEENAN Administration Lansoprazole 30 mg 06/12/22 06:00 06/12/22 06:08 Lansoprazole 15 Mg Capsule. GT 30 mg DAILY KEENAN Administration Magnesium Hydroxide 30 ml 06/11/22 18:49 Magnesium Hydroxide 30 Ml Udc PO .PRN X 1 PRN Constipation Midodrine 5 mg 06/11/22 22:00 06/12/22 14:15 Midodrine Hcl 5 Mg Tablet GT 5 mg TID KEENAN Administration Mirtazapine 15 mg 06/11/22 22:00 06/11/22 21:43 Mirtazapine 15 Mg Tablet GT 15 mg QHS KEENAN Administration Nystatin 1 applic 06/12/22 06:00 06/12/22 06:09 Nystatin Powder 15gm Bottle TOPICAL 1 applic BID KEENAN Administration Protocol Nystatin/Triamcinolone Acetonide 1 applic 06/11/22 22:00 06/12/22 06:08 Nystatin/Triamcin Cream Tube TOPICAL 1 applic BID@0600,2200 KEENAN Administration Protocol Oxycodone HCl 5 mg 06/11/22 18:49 Oxycodone 5 Mg Tablet PO Q4H PRN PRN Pain Score 1-10 Fluticasone/Salmeterol 1 puff 06/11/22 19:00 06/12/22 06:09 Fluticasone/Salmeterol 232-14 Inhaler INHALATION 1 puff Q12 KEENAN Administration Sertraline HCl 50 mg 06/12/22 06:00 06/12/22 06:07 Sertraline 50 Mg Tablet GT 50 mg DAILY KEENAN Administration Simethicone 80 mg 06/12/22 00:00 06/12/22 10:13 Simethicone 40mg/0.6ml Bottle GT 0.6 ml Q6 KEENAN Administration Tuberculin PPD 0.1 ml 06/19/22 10:00 Tuberculin,Purif.Prot.Deriv. 50 Tu/Ml Vial ID 06/19/22 10:01 X1 ONE Zolpidem Tartrate 5 mg 06/11/22 18:49 Zolpidem Tartrate 5 Mg Tablet PO QHS PRN PRN Insomnia Problem List (Last Reviewed 06/11/22 @ 21:[address] Mike Anthony MD) Abdominal aortic aneurysm (Acute) Peripheral vascular disease (Acute) Depression (Acute) Osteoarthritis (Acute) Chronic obstructive pulmonary disease (Chronic) Esophageal stenosis (Acute) Transient ischemic attack (Acute) Hyperlipidemia (Acute) Benign prostatic hyperplasia (Acute) Gastroesophageal reflux disease (Acute) Orthostatic hypotension (Acute) Laryngeal cancer (Acute) Hydroureter, left (Acute) Left ureteral stone (Acute) Dysphagia (Acute) Urinary tract infection (Acute) Bacteremia (Acute) Stroke (Acute) Debility (Acute) Vital Signs Temp Pulse Resp BP Pulse Ox O2 Del Method 98.3 F 74 14 117/65 97 Room Air 06/11/22 20:42 06/12/22 08:58 06/12/22 05:00 06/12/22 08:58 06/12/22 05:00 06/12/22 05:00 Oxygen Delivery Method Room Air Weight: 62.6 kg Body Mass Index (BMI) 18.3 Sodium 139 mmol/L (136-145) 06/12/22 05:21 Potassium 3.9 mmol/L (3.5-5.1) 06/12/22 05:21 Chloride 105 mmol/L (98-107) 06/12/22 05:21 Carbon Dioxide 26.0 mmol/L (21.0-32.0) 06/12/22 05:21 Anion Gap 8 (5-15) 06/12/22 05:21 BUN 44 mg/dL (7-18) H 06/12/22 05:21 Creatinine 1.56 mg/dL (0.70-1.30) H 06/12/22 05:21 Est GFR (MDRD) Af Amer 55 mL/min (>60) L 06/12/22 05:21 Est GFR (MDRD) Non-Af 46 mL/min (>60) L 06/12/22 05:21 BUN/Creatinine Ratio 28.2 RATIO (10-20) H 06/12/22 05:21 Glucose 98 mg/dL (74-106) 06/12/22 05:21 Assessment/Plan: 1. Pain: acetaminophen 1000mg GT Q6H PRN pain 1-5, oxycodone 5mg GT Q4H PRN pain 6-10 and arthritis pain compound 3 clicks topically BID. Resident has not received any PRN doses. Please continue to monitor for PRN usage and increased pain. 2. Bowel: bisacodyl 10mg RC x1 PRN constipation and MOM 30ML GT x1 PRN constipation. Resident has not received any doses. Please continue to monitor for constipation and PRN usage. 3. Stroke: aspirin 324mg GT DAILYCM. Please continue to monitor for S/S ble eding/stroke and hemoglobin (last 8.9g/dL). 4. COPD: Advair 232/14mcg 1inhaled puff Q12 and albuterol MDI 2 inhaled puffs Q6H PRN SOB/wheezing. Please continue to monitor for S/S COPD/SOB, HR (last 74), and thrush. Please rinse mouth with water and spit following Advair administrations to prevent thrush. 5. Hyperlipidemia: atorvastatin 80mg GT QHS. Please consider ordering a lipid panel if clinically appropriate. Last panel from 09/2019. Thanks. Please continue to monitor for muscle pain and LFTs (last 05/29/22). 6. Orthostatic hypotension: midodrine 5mg GT TID. Please continue to monitor BP (last 94/58). 7. GERD: lansoprazole 30mg GT daily. Please continue to monitor for S/S of GERD and diarrhea. 8. Gas: simethicone 80mg GT Q6. Please continue to monitor. Assessment/Plan for indications treated with psychotropic medications: 1. Depression: sertraline 50mg GT daily. Please see physician note regarding GDR. Please continue to monitor for suicidal ideation (black box warning), falls/fractures (BEERs list medication) and GI side effects. 2. Insomnia: mirtazapine 15mg GT QHS and zolpidem 5mg PO QHS PRN insomnia. Please see physician note regarding mirtazapine GDR. Please continue to monitor for suicidal ideation (black box warning), excessive drowsiness and PRN usage. 3. Neuropathic pain: gabapentin 300mg GT TIDCM. Resident using for neuropathic pain. GDR not appropriate. Please continue to monitor for pain, renal function and confusion. This medication is on the BEERs list for falls/fractures. Please consider decreasing dose to 400mg GT BID for renal function to decrease the risk of falls. Thanks. Medical chart and medication regimen reviewed. The following medication irregularities or issues were identified: *1. Gabapentin 300mg GT TIDCM. Please consider decreasing dose to 400mg GT BID for renal function to decrease the risk of falls. Thanks. *2. Atorvastatin 80mg PO QHS. Please consider ordering a lipid panel if clinically appropriate. Last panel from 09/2019. Thanks. Date of Note:: 06/12/22
--- NOTE | 2022-06-12 15:59 | CASEMGMT ---
Social Work Met with patient to complete initial assessment. Pt admitted from and was working with this social organization professor. Confirmed DNR-CCA, no intubation. Completed MOLST form, placed in Dr. galindo. Educated to Medicare benefit. Pts goal is to return home alone with new permanent peg tube. SW to follow for DC plans. Hansa Kerr, MARINE EXTENSION AGENT HVAC JOURNEYMAN
[2022-06-12 16:00] VITALS: BP 141/81; PULSE 68; RESP 16; TEMP 36.3; O2SAT 98
--- NOTE | 2022-06-12 16:50 | NURSING ---
THIS NURSE HEARD LOUD NOISE,WENT TO PT ROOM AND FOUND PT ON KNEES AND ELBOWS. PT STARTED GETTING UP AND THIS NURSE TOLD PT TO STOP AND PT FELL BACK DOWN AGAIN ON HANDS AND KNEES BESIDE BED. OTHER STAFF ENTERED ROOM. ASKED PT WHAT HAPPEN,PT STATED I WAS JUST GETTING MY SWEAT SHIRT OUT OF THE CLOSET AND LOST MY BALANCE. STAFF GOT PT BACK TO RECLINER. VITALS DONE, SMALL CUT TO RIGHT ELBOW. NO OTHER SIGNS OF INJURY OR BRUISES AT THIS TIME. TIFFANIE,COMMERCIAL LITIGATION ATTORNEY, AND FAMILY NOTIFIED.
[2022-06-12 17:03] VITALS: BP 163/93; PULSE 84; RESP 18; TEMP 36.4; O2SAT 100
[2022-06-12] MEDS: NEPRO TUBE FEED 1,000 ML LIQUID 250 ML GT ×2 (18:01→22:35)
[2022-06-12] MEDS: Mag Hydrox/Al Hydrox/Simeth 30 ML UDC PO (18:03)
--- NOTE | 2022-06-12 18:10 | NURSING ---
50cc residual noted prior to bolus feed at this time. pt assisting with feeds without difficulty. medication provided per c/o indigestion.
[2022-06-12] MEDS: Mirtazapine 15 MG Tablet GT (22:35)
[2022-06-12] MEDS: Atorvastatin Calcium 80 MG Tablet GT (22:35)
[2022-06-12 23:00] VITALS: PULSE 63; RESP 16; O2SAT 93
[2022-06-13] MEDS: Fluticasone/Salmeterol 232-14 Inhaler 1 PUFF INHALATION ×2 (06:39→18:00)
[2022-06-13] MEDS: Midodrine HCl 5 MG Tablet GT ×3 (06:39→21:29)
[2022-06-13] MEDS: Lansoprazole 15 MG Capsule.DR 30 MG GT (06:39)
[2022-06-13] MEDS: Sertraline 50 MG Tablet GT (06:39)
[2022-06-13] MEDS: Nystatin/Triamcin Cream Tube 1 APPLIC TOPICAL ×2 (06:40→23:36)
[2022-06-13] MEDS: Simethicone 40MG/0.6ML Bottle 80 MG GT ×4 (06:40→23:37)
[2022-06-13] MEDS: Nystatin Powder 15gm Bottle 1 APPLIC TOPICAL ×2 (06:40→17:59)
[2022-06-13] MEDS: NEPRO TUBE FEED 1,000 ML LIQUID 250 ML GT ×5 (06:41→21:32)
[2022-06-13] MEDS: Gabapentin 300 MG Capsule GT ×3 (06:43→21:28)
[2022-06-13] MEDS: Aspirin 81 MG TAB.CHEW 324 MG GT (10:14)
--- NOTE | 2022-06-13 10:43 | NURSING ---
100 cc of residual noted prior to bolus of Nepo.
[2022-06-13 10:50] VITALS: BP 113/72; BP 133/77; BP 84/58; PULSE 66; PULSE 67; PULSE 80
[2022-06-13 11:01] VITALS: BP 133/77; PULSE 67; RESP 16; TEMP 36.4; O2SAT 95
--- NOTE | 2022-06-13 15:17 | NURSING ---
0ml of residual noted prior to administering medication and Nepro.Pt tolerated well no c/o of nausea.
[2022-06-13] MEDS: Mirtazapine 15 MG Tablet GT (21:28)
[2022-06-13] MEDS: Atorvastatin Calcium 80 MG Tablet GT (21:28)
[2022-06-14] MEDS: Midodrine HCl 5 MG Tablet GT ×3 (06:19→21:43)
[2022-06-14] MEDS: NEPRO TUBE FEED 1,000 ML LIQUID 250 ML GT ×5 (06:19→21:54)
[2022-06-14] MEDS: Fluticasone/Salmeterol 232-14 Inhaler 1 PUFF INHALATION ×2 (06:19→18:45)
[2022-06-14] MEDS: Arthritis Pain Compound 60 CLICK TUBE TOPICAL (06:19)
[2022-06-14] MEDS: Sertraline 50 MG Tablet GT (06:20)
[2022-06-14] MEDS: Gabapentin 300 MG Capsule GT ×3 (06:20→21:57)
[2022-06-14] MEDS: Lansoprazole 15 MG Capsule.DR 30 MG GT (06:20)
[2022-06-14] MEDS: Simethicone 40MG/0.6ML Bottle 80 MG GT ×3 (06:21→18:46)
[2022-06-14] MEDS: Aspirin 81 MG TAB.CHEW 324 MG GT (09:56)
[2022-06-14] MEDS: Nystatin/Triamcin Cream Tube 1 APPLIC TOPICAL ×2 (09:59→21:43)
[2022-06-14] MEDS: Nystatin Powder 15gm Bottle 1 APPLIC TOPICAL ×2 (09:59→18:46)
[2022-06-14 10:00] VITALS: BP 112/66; BP 86/42; BP 96/54; PULSE 70; PULSE 78; PULSE 83
[2022-06-14 14:30] VITALS: O2SAT 95
[2022-06-14 16:00] VITALS: BP 101/55; PULSE 74; RESP 18; TEMP 36.7; O2SAT 92
[2022-06-14] MEDS: Atorvastatin Calcium 80 MG Tablet GT (21:43)
[2022-06-14] MEDS: Mirtazapine 15 MG Tablet GT (21:43)
--- NOTE | 2022-06-14 21:45 | NURSING ---
PEG tube residual 50ml. Significant amount of air noted when aspirating stomach contents.
[2022-06-15] MEDS: Simethicone 40MG/0.6ML Bottle 80 MG GT ×5 (00:42→23:28)
[2022-06-15] MEDS: Lansoprazole 15 MG Capsule.DR 30 MG GT (06:04)
[2022-06-15] MEDS: Fluticasone/Salmeterol 232-14 Inhaler 1 PUFF INHALATION ×2 (06:04→18:20)
[2022-06-15] MEDS: Sertraline 50 MG Tablet GT (06:08)
[2022-06-15] MEDS: Midodrine HCl 5 MG Tablet GT ×3 (06:11→22:14)
[2022-06-15] MEDS: Gabapentin 300 MG Capsule GT ×3 (06:14→22:14)
[2022-06-15] MEDS: NEPRO TUBE FEED 1,000 ML LIQUID 250 ML GT ×5 (06:21→22:15)
[2022-06-15 07:55] VITALS: O2SAT 93
[2022-06-15 09:00] VITALS: PULSE 75; RESP 18; O2SAT 92
[2022-06-15] MEDS: Aspirin 81 MG TAB.CHEW 324 MG GT (09:52)
[2022-06-15 10:00] VITALS: BP 126/66; BP 90/58; BP 96/57
--- NOTE | 2022-06-15 10:24 | NURSING ---
PT HAVING SMALL NOSE BLEEDS. ASKED IF WE CAN GET HIM ANY THING FOR IT DO TO DRYNESS. PT STATED NO I HAD THEM UP STAIRS AND IT WILL BE FINE. DID TUBE FEED. NO RESIDUAL,PLACEMENT VERIFIED. PT TOLERATED WELL.
[2022-06-15 13:01] LABS: AST(SGOT) 118 U/L (15-37); Alanine Aminotransfer ALT/SGPT 118 U/L (16-61); Albumin, Serum 2.8 g/dL (3.2-5.0); Alkaline Phosphatase 137 U/L (45-117); Bilirubin, Direct 0.09 mg/dL (0.00-0.30); Globulin 4.7 g/dL (2.2-4.2); Protein, Total 7.5 g/dL (6.4-8.2)
--- NOTE | 2022-06-15 14:14 | NURSING ---
labs faxed to [facility] as requested. would like them faxed wkly. CBCD, BMP, and liver profile
[2022-06-15 14:27] VITALS: BP 127/77; PULSE 74; RESP 18; TEMP 36.4; O2SAT 95
[2022-06-15 16:35] LABS: Bedside Glucose 129 mg/dL (74-106)
[2022-06-15 21:30] LABS: Bedside Glucose 102 mg/dL (74-106)
[2022-06-15] MEDS: Atorvastatin Calcium 80 MG Tablet GT (22:14)
[2022-06-15] MEDS: Mirtazapine 15 MG Tablet GT (22:14)
[2022-06-15] MEDS: Nystatin Powder 15gm Bottle 1 APPLIC TOPICAL (22:14)
[2022-06-15] MEDS: Nystatin/Triamcin Cream Tube 1 APPLIC TOPICAL (22:15)
--- NOTE | 2022-06-16 03:14 | NURSING ---
Addendum entered by Charli Kaba 06/16/22 06:30: Pt. declined blood glucose check this AM despite education. Original Note: Pt. requests ACHS blood glucose checks be discontinued stating tell the doctor to get rid of them. Written communication left for Dr. Anthony regarding patient request.
[2022-06-16] MEDS: Lansoprazole 15 MG Capsule.DR 30 MG GT (06:30)
[2022-06-16] MEDS: Nystatin Powder 15gm Bottle 1 APPLIC TOPICAL ×2 (06:31→20:56)
[2022-06-16] MEDS: Fluticasone/Salmeterol 232-14 Inhaler 1 PUFF INHALATION ×2 (06:31→18:05)
[2022-06-16] MEDS: Simethicone 40MG/0.6ML Bottle 80 MG GT ×3 (06:31→18:06)
[2022-06-16] MEDS: Gabapentin 300 MG Capsule GT ×3 (06:31→20:56)
[2022-06-16] MEDS: Sertraline 50 MG Tablet GT (06:32)
[2022-06-16] MEDS: Midodrine HCl 5 MG Tablet GT ×3 (06:32→20:51)
[2022-06-16] MEDS: Nystatin/Triamcin Cream Tube 1 APPLIC TOPICAL ×2 (06:35→20:57)
[2022-06-16 06:36] VITALS: BP 112/60; PULSE 66; RESP 16
[2022-06-16] MEDS: NEPRO TUBE FEED 1,000 ML LIQUID 250 ML GT ×2 (06:51→09:04)
[2022-06-16] MEDS: Aspirin 81 MG TAB.CHEW 324 MG GT (09:03)
--- NOTE | 2022-06-16 12:21 | NURSING ---
Sharples Machine Operator Note; Activity Asst complete
[2022-06-16 13:49] VITALS: BP 120/73; PULSE 72; RESP 16; TEMP 35.9; O2SAT 94
[2022-06-16] MEDS: Nepro with Carbsteady 237 ML Liquid 240 ML GT ×3 (14:37→20:57)
--- NOTE | 2022-06-16 15:08 | CHAPLAIN ---
Type of Pastoral Visit ___ Initial Visit _x__ Follow-up Visit ___ On-call Visit ___ General Patient Visit ___ Spiritual Assessment ___ Family Conference ___ Bereavement ___ Rapid Response ___ Code Blue ___ Other (describe below) Pastoral Care Referral From _x__ Patient ___ Family ___ Nurse ___ Physician ___ Automobile Service Advisor ___ Retail Sales Representative ___ Other (describe below) Sacrament/Intervention _x__ Active listening ___ Anointing ___ Confucianism ___ Bereavement ___ Communion ___ Bee exploration ___ ___ Life review _x__ Prayer ___ Reconciliation ___ Sacrament of Sick ___ Supportive presence ___ Wedding ___ Other (describe below) Pastoral Comments patient just sitting quietly in his chair; pt states that things are going well and that he continues to get therapy here in TCU; pt says goal is to get ready for going home; pt and this general accountant engage in casual conversation and the interest in baseball playoffs to start soon; prayer welcomed
[2022-06-16 15:35] VITALS: BP 125/68; BP 142/72; BP 99/61; PULSE 71; PULSE 93
--- NOTE | 2022-06-16 15:53 | NURSING ---
PEG TUBE PLACEMENT VERIFIED, 0 RESIDUAL AT 10 AM AND 1400 FEEDING. PT HELPED AND TOLERATED WELL.
[2022-06-16] MEDS: Atorvastatin Calcium 80 MG Tablet GT (20:51)
[2022-06-16] MEDS: Mirtazapine 15 MG Tablet GT (20:51)
[2022-06-16 21:31] VITALS: PULSE 72; RESP 14; O2SAT 93
[2022-06-17] MEDS: Fluticasone/Salmeterol 232-14 Inhaler 1 PUFF INHALATION ×2 (04:18→17:59)
[2022-06-17] MEDS: Nepro with Carbsteady 237 ML Liquid 240 ML GT ×3 (04:19→13:03)
[2022-06-17] MEDS: Sertraline 50 MG Tablet GT (04:19)
[2022-06-17] MEDS: Gabapentin 300 MG Capsule GT ×3 (04:19→21:36)
[2022-06-17] MEDS: Lansoprazole 15 MG Capsule.DR 30 MG GT (04:19)
[2022-06-17] MEDS: Midodrine HCl 5 MG Tablet GT ×3 (04:19→21:37)
[2022-06-17] MEDS: Simethicone 40MG/0.6ML Bottle 80 MG GT ×3 (04:26→17:59)
[2022-06-17] MEDS: Nystatin Powder 15gm Bottle 1 APPLIC TOPICAL ×2 (04:39→18:01)
[2022-06-17] MEDS: Nystatin/Triamcin Cream Tube 1 APPLIC TOPICAL ×2 (04:40→21:37)
[2022-06-17 04:41] VITALS: BP 114/67; PULSE 72
[2022-06-17 06:41] LABS: ALB/GLOB Ratio 0.6 RATIO (0.9-2.4); AST(SGOT) 123 U/L (15-37); Alanine Aminotransfer ALT/SGPT 142 U/L (16-61); Albumin, Serum 2.6 g/dL (3.2-5.0); Alkaline Phosphatase 131 U/L (45-117); Anion Gap 6 (5-15); BUN 46 mg/dL (7-18); BUN/Creat Ratio 29.9 RATIO (10-20); Calcium,Total 9.3 mg/dL (8.5-10.1); Chloride 107 mmol/L (98-107); Creatinine, Serum 1.54 mg/dL (0.70-1.30); EST Glomerular Filtration Rate 47 mL/min (>60); Est Glom Filt Rate - Afr Amer 56 mL/min (>60); Estimated Creatinine Clearance 34.99 ml/min; Globulin 4.3 g/dL (2.2-4.2); Glucose 133 mg/dL (74-106); Potassium 3.9 mmol/L (3.5-5.1); Protein, Total 6.9 g/dL (6.4-8.2); Sodium Level 139 mmol/L (136-145)
[2022-06-17] MEDS: Aspirin 81 MG TAB.CHEW 324 MG GT (08:12)
[2022-06-17 10:00] VITALS: BP 102/64; BP 78/54; BP 85/59; PULSE 78; PULSE 94
--- NOTE | 2022-06-17 10:05 | CASEMGMT ---
Social Work IDT met with patient and HCPOA friend for care plan meeting. Discussed patient's progress in PT/OT/ST/SN. Educated to Medicare benefit. Pts goal is to return home alone. IDT expressed concern with fall risk and having occasional loss of balance, but not to resolve. Pt will get repeat MBS prior to DC but anticipating have peg tube for long-term use. Pt has been getting training on administering own peg tube. Pt is no longer straight cathing. Pt and IDT to determine setting a safe DC date. SW to continue to follow. Hansa Kerr, DIRECTOR OF ONCOLOGY WIRE MILL OPERATOR
--- NOTE | 2022-06-17 12:27 | CASEMGMT ---
Social Work BIMS () and PHQ-9 (02/06) completed for MDS assessment. Hansa Kerr MSW AIRLINE CUSTOMER SERVICE AGENT
[2022-06-17 14:50] VITALS: BP 108/65; PULSE 88; RESP 20; TEMP 36.3; O2SAT 99
[2022-06-17] MEDS: Nepro with Carbsteady 237 ML Liquid 290 ML GT ×2 (17:59→21:36)
[2022-06-17] MEDS: Atorvastatin Calcium 40 MG Tablet GT (21:36)
[2022-06-17] MEDS: Mirtazapine 15 MG Tablet GT (21:37)
[2022-06-18] MEDS: Simethicone 40MG/0.6ML Bottle 80 MG GT ×4 (00:31→17:23)
[2022-06-18] MEDS: Nystatin Powder 15gm Bottle 1 APPLIC TOPICAL ×2 (05:46→17:22)
[2022-06-18] MEDS: Fluticasone/Salmeterol 232-14 Inhaler 1 PUFF INHALATION ×2 (05:46→17:22)
[2022-06-18] MEDS: Lansoprazole 15 MG Capsule.DR 30 MG GT (05:47)
[2022-06-18] MEDS: Midodrine HCl 5 MG Tablet GT ×2 (05:47→13:25)
[2022-06-18] MEDS: Gabapentin 300 MG Capsule GT ×2 (05:47→13:29)
[2022-06-18] MEDS: Sertraline 50 MG Tablet GT (05:47)
[2022-06-18] MEDS: Nepro with Carbsteady 237 ML Liquid 290 ML GT ×4 (05:47→17:24)
[2022-06-18] MEDS: Nystatin/Triamcin Cream Tube 1 APPLIC TOPICAL (05:48)
--- NOTE | 2022-06-18 09:03 | NURSING ---
Credit Control Manager Note; MDS complete
[2022-06-18] MEDS: Aspirin 81 MG TAB.CHEW 324 MG GT (10:28)
[2022-06-18 15:56] VITALS: BP 115/59; PULSE 86; RESP 18; TEMP 36.6; O2SAT 95
--- NOTE | 2022-06-18 22:09 | NURSING ---
When checking residual, solomon a moderate amount of dark red blood. When removing Nicolas, clot removed from site. Patient was also having nosebleed. BP 144/81, P 94. Nose bleed has continued for 10 minutes, with long clots noted. Dr. Anthony notified. Orders received to send to ED for evaluation.
--- NOTE | 2022-06-18 22:13 | NURSING ---
Report called to ED.
--- NOTE | 2022-06-19 01:59 | NURSING ---
Patient returned to unit from ED at 0135am. Rhino rocket in place, to remain x 2-3 days. To follow up with Dr. Wise.
[2022-06-19 05:47] LABS: Absolute Lymphocyte Count 0.56 X10^3/uL (0.83-4.51); Basophil# 0.04 X10^3/uL; Basophil% 0.3 % (0-1); Eosinophil# 0.12 X10^3/uL; Hematocrit 30.9 % (40-54); Hemoglobin 9.7 g/dL (13.0-16.5); Lymphocyte # 0.56 X10^3/ul (0.83-4.51); Lymphocyte % 4.4 % (19-41); Mean Corp Hgb Conc 31.4 g/dL (32-36); Mean Corpuscular Hgb 28.9 pg (27.0-32.0); Mean Platelet Vol. 12.7 fl (6.2-12.0); Monocyte# 0.86 X10^3/uL; Monocyte% 6.8 % (0-10); NRBC Flagged by Analyzer 0 % (0-5); Neutrophil # 10.96 X10^3/uL (2.7-7.7); Neutrophil % 86.8 % (47-70); POSITIVE DIFFERENTIAL YES; Platelet Count 230 K/mm3 (150-450); RBC Distribution Width CV 17.1 % (11.6-14.6); RBC Distribution Width SD 57.1 fl (35.1-43.9); Red Blood Count 3.36 M/mm3 (4.6-6.2); White Blood Count 12.6 K/mm3 (4.4-11.0)
[2022-06-19] MEDS: Gabapentin 300 MG Capsule GT ×3 (06:01→21:24)
[2022-06-19] MEDS: Nepro with Carbsteady 237 ML Liquid 290 ML GT ×5 (06:02→21:30)
[2022-06-19] MEDS: Lansoprazole 15 MG Capsule.DR 30 MG GT (06:02)
[2022-06-19] MEDS: Sertraline 50 MG Tablet GT (06:02)
[2022-06-19] MEDS: Fluticasone/Salmeterol 232-14 Inhaler 1 PUFF INHALATION ×2 (06:03→18:01)
[2022-06-19] MEDS: Simethicone 40MG/0.6ML Bottle 80 MG GT ×4 (06:03→23:24)
[2022-06-19] MEDS: Nystatin/Triamcin Cream Tube 1 APPLIC TOPICAL (06:04)
[2022-06-19 06:35] LABS: AST(SGOT) 115 U/L (15-37); Alanine Aminotransfer ALT/SGPT 153 U/L (16-61); Albumin, Serum 2.8 g/dL (3.2-5.0); Alkaline Phosphatase 117 U/L (45-117); Anion Gap 6 (5-15); BUN 49 mg/dL (7-18); BUN/Creat Ratio 35.3 RATIO (10-20); Bilirubin, Direct 0.11 mg/dL (0.00-0.30); Calcium,Total 9.2 mg/dL (8.5-10.1); Chloride 107 mmol/L (98-107); Creatinine, Serum 1.39 mg/dL (0.70-1.30); EST Glomerular Filtration Rate 52 mL/min (>60); Est Glom Filt Rate - Afr Amer 63 mL/min (>60); Estimated Creatinine Clearance 38.84 ml/min; Globulin 4.5 g/dL (2.2-4.2); Glucose 115 mg/dL (74-106); Potassium 4.1 mmol/L (3.5-5.1); Protein, Total 7.3 g/dL (6.4-8.2); Sodium Level 139 mmol/L (136-145)
[2022-06-19 07:16] LABS: Differential Indicated SCAN CRITERIA MET
[2022-06-19 07:26] LABS: Differential Comment SCANNED
[2022-06-19 07:38] VITALS: BP 139/81; PULSE 99
--- NOTE | 2022-06-19 07:40 | NURSING ---
weekly lab work faxed to [facility] infectious disease office per MD guo
[2022-06-19] MEDS: Aspirin 81 MG TAB.CHEW GT (09:47)
[2022-06-19] MEDS: Tuberculin,Purif.prot.deriv. 50 TU/ML Vial 0.1 ML ID (09:47)
[2022-06-19] MEDS: Nystatin Powder 15gm Bottle 1 APPLIC TOPICAL (09:49)
[2022-06-19] MEDS: Ondansetron ODT 4 MG Tablet GT (10:26)
--- NOTE | 2022-06-19 14:45 | RAD_ITS ---
INDICATION: nausea EXAMINATION/TECHNIQUE: X-RAY - upright and supine XR Abdomen W/ Decub and/or Erect Views COMPARISON: 05/29/2022 abdominal x-rays. FINDINGS: BOWEL GAS PATTERN: 6 cm diameter, air-fluid level seen in the right mid abdomen, likely in the cecum. No other abnormally distended colon or small bowel loops. No other air fluid levels. FREE AIR: Not assessed on a single supine view. ORGANOMEGALY: Not seen. CALCIFICATIONS: No abnormal calcifications observed. LOWER CHEST: Clear lung bases. BONES AND SOFT TISSUES: No acute pathology. Note of left double-J ureteral stent, shadow suggesting percutaneous gastrostomy tube, L4-5 transpedicular screws and bridging rods, and right gluteal region stimulator device with leads projecting over the thoracolumbar spine. RAD/Abd Inc Decub and/or Erect IMPRESSION: Nonspecific, 6 cm diameter air-fluid level right mid abdomen, likely in the cecum. Consider follow-up imaging if there is abdominal pain or tenderness process suggesting possible focal ileus. No other distended air-filled bowel loops or evidence of acute intra-abdominal pathology. Electronically Signed: Brandon Bailey DO at 18:06 EDT ,
[2022-06-19] MEDS: proMETHazine 25 MG Tablet GT (15:08)
[2022-06-19 17:24] LABS: Mucous, Urine 0 SEEN /hpf (<or=2+)
[2022-06-19 17:38] LABS: Color, Urine Yellow (Yellow); Glucose, Dipstick Normal (Normal); Ketone-Dipstick Negative (Negative); Leukocyte Esterase-Dipstick 100 /ul (Negative); Nitrite-Dipstick Negative (Negative); Occult Blood-Urine 10 /ul (Negative); Protein-Dipstick 15 mg/dl (Negative); Specific Gravity, Urine 1.015 (1.002-1.030); Urine Bilirubin Dipstick Negative (Negative); Urine Clarity Clear (Clear); Urine Urobilinogen Normal (Normal)
[2022-06-19 18:00] VITALS: BP 141/91; PULSE 107; RESP 18; TEMP 37.5; O2SAT 97
[2022-06-19 18:17] LABS: Red Blood Cells-Urine 0-5 SEEN /hpf (0-5); White Blood Cells 5-10 SEEN /hpf (0-5)
[2022-06-19 18:18] LABS: Bacteria 1+ /hpf (None Seen); Squamous Epithelial Cells - UA 0-5 SEEN /hpf (0-5)
[2022-06-19] MEDS: Zolpidem Tartrate 5 MG Tablet GT (21:24)
[2022-06-19] MEDS: Atorvastatin Calcium 40 MG Tablet GT (21:27)
[2022-06-19] MEDS: Mirtazapine 15 MG Tablet GT (21:28)
[2022-06-19 21:39] VITALS: BP 162/84; PULSE 108; RESP 16
[2022-06-20] MEDS: Fluticasone/Salmeterol 232-14 Inhaler 1 PUFF INHALATION ×2 (06:35→18:44)
[2022-06-20] MEDS: Lansoprazole 15 MG Capsule.DR 30 MG GT (06:36)
[2022-06-20] MEDS: Nepro with Carbsteady 237 ML Liquid 290 ML GT ×5 (06:37→21:12)
[2022-06-20] MEDS: Sertraline 50 MG Tablet GT (06:38)
[2022-06-20] MEDS: Simethicone 40MG/0.6ML Bottle 80 MG GT ×3 (06:38→18:45)
[2022-06-20] MEDS: Gabapentin 300 MG Capsule GT ×3 (06:41→21:11)
[2022-06-20 07:57] LABS: ALB/GLOB Ratio 0.6 RATIO (0.9-2.4); AST(SGOT) 77 U/L (15-37); Alanine Aminotransfer ALT/SGPT 126 U/L (16-61); Albumin, Serum 2.9 g/dL (3.2-5.0); Alkaline Phosphatase 134 U/L (45-117); Anion Gap 9 (5-15); BUN 36 mg/dL (7-18); BUN/Creat Ratio 22.5 RATIO (10-20); Bilirubin, Direct 0.12 mg/dL (0.00-0.30); Calcium,Total 9.6 mg/dL (8.5-10.1); Chloride 101 mmol/L (98-107); EST Glomerular Filtration Rate 44 mL/min (>60); Est Glom Filt Rate - Afr Amer 54 mL/min (>60); Estimated Creatinine Clearance 33.39 ml/min; Globulin 5.2 g/dL (2.2-4.2); Glucose 143 mg/dL (74-106); Potassium 3.4 mmol/L (3.5-5.1); Protein, Total 8.1 g/dL (6.4-8.2); Sodium Level 136 mmol/L (136-145)
[2022-06-20 08:02] VITALS: O2SAT 97
[2022-06-20] MEDS: Aspirin 81 MG TAB.CHEW GT (09:22)
[2022-06-20] MEDS: Midodrine HCl 5 MG Tablet GT ×2 (13:19→21:12)
[2022-06-20 15:09] VITALS: BP 132/87; PULSE 106; RESP 20; TEMP 36.6; O2SAT 98
--- NOTE | 2022-06-20 16:16 | NURSING ---
6055- Labs (CMP, Liver profile and bilirubin) faxed to [facility] Infectious disease at fax# [phone]. Fax confirmation received.
[2022-06-20] MEDS: Arthritis Pain Compound 60 CLICK TUBE TOPICAL (18:44)
[2022-06-20] MEDS: Nystatin Powder 15gm Bottle 1 APPLIC TOPICAL (18:45)
[2022-06-20] MEDS: Atorvastatin Calcium 40 MG Tablet GT (21:11)
[2022-06-20] MEDS: Mirtazapine 15 MG Tablet GT (21:11)
[2022-06-20] MEDS: Zolpidem Tartrate 5 MG Tablet GT (21:11)
[2022-06-21] MEDS: Simethicone 40MG/0.6ML Bottle 80 MG GT ×4 (01:08→17:43)
[2022-06-21] MEDS: Fluticasone/Salmeterol 232-14 Inhaler 1 PUFF INHALATION ×2 (06:31→17:44)
[2022-06-21] MEDS: Midodrine HCl 5 MG Tablet GT ×3 (06:32→22:34)
[2022-06-21] MEDS: Sertraline 50 MG Tablet GT (06:33)
[2022-06-21] MEDS: Lansoprazole 15 MG Capsule.DR 30 MG GT (06:33)
[2022-06-21] MEDS: Gabapentin 300 MG Capsule GT ×3 (06:39→22:27)
[2022-06-21 06:40] VITALS: BP 94/56; PULSE 113
--- NOTE | 2022-06-21 06:40 | NURSING ---
Residual from PEG tube this am 0ml.
[2022-06-21] MEDS: Nepro with Carbsteady 237 ML Liquid 290 ML GT ×5 (06:42→22:30)
[2022-06-21 08:54] LABS: Anion Gap 8 (5-15); BUN 43 mg/dL (7-18); BUN/Creat Ratio 28.5 RATIO (10-20); Calcium,Total 8.6 mg/dL (8.5-10.1); Chloride 104 mmol/L (98-107); Creatinine, Serum 1.51 mg/dL (0.70-1.30); EST Glomerular Filtration Rate 48 mL/min (>60); Est Glom Filt Rate - Afr Amer 58 mL/min (>60); Estimated Creatinine Clearance 35.43 ml/min; Glucose 161 mg/dL (74-106); Potassium 3.4 mmol/L (3.5-5.1); Sodium Level 137 mmol/L (136-145)
[2022-06-21] MEDS: Aspirin 81 MG TAB.CHEW GT (10:17)
[2022-06-21 12:26] VITALS: BP 105/64; PULSE 108; RESP 18; TEMP 36.9; O2SAT 95
[2022-06-21] MEDS: Potassium Chloride Oral Soln 20 MEQ/15 ML UDC GT (15:00)
[2022-06-21] MEDS: Nystatin Powder 15gm Bottle 1 APPLIC TOPICAL (17:45)
[2022-06-21] MEDS: Glycerin/Hypromellose/PEG400 15 ml Bottle 1 DRP EACH EYE (17:45)
[2022-06-21] MEDS: Atorvastatin Calcium 40 MG Tablet GT (22:28)
[2022-06-21] MEDS: Zolpidem Tartrate 5 MG Tablet GT (22:28)
[2022-06-21] MEDS: Mirtazapine 15 MG Tablet GT (22:32)
[2022-06-22] MEDS: Lansoprazole 15 MG Capsule.DR 30 MG GT (06:14)
[2022-06-22] MEDS: Fluticasone/Salmeterol 232-14 Inhaler 1 PUFF INHALATION ×2 (06:15→17:52)
[2022-06-22] MEDS: Midodrine HCl 5 MG Tablet GT ×2 (06:17→14:15)
[2022-06-22] MEDS: Simethicone 40MG/0.6ML Bottle 80 MG GT ×3 (06:17→17:53)
[2022-06-22] MEDS: Gabapentin 300 MG Capsule GT ×3 (06:17→22:22)
[2022-06-22] MEDS: Sertraline 50 MG Tablet GT (06:18)
[2022-06-22] MEDS: Nepro with Carbsteady 237 ML Liquid 290 ML GT ×5 (06:40→22:24)
--- NOTE | 2022-06-22 06:40 | NURSING ---
PEG tube residual 0ml this am.
[2022-06-22 10:00] VITALS: PULSE 109; RESP 16; O2SAT 94
[2022-06-22] MEDS: Potassium Chloride Oral Soln 20 MEQ/15 ML UDC GT (10:08)
[2022-06-22] MEDS: Aspirin 81 MG TAB.CHEW GT (10:09)
[2022-06-22 10:11] VITALS: BP 86/68; PULSE 109; RESP 18; O2SAT 96
[2022-06-22] MEDS: oxyCODONE 5 MG Tablet PO (10:12)
[2022-06-22 10:36] VITALS: TEMP 36.6
--- NOTE | 2022-06-22 11:46 | NURSING ---
pt c/o being extremely tired & weak even over weekend. reviewed labs, noted urine was done on wednesday but no culture. elevated BUN. Dr kahn updated, new order for saline 1 liter bolus and resend UA & culture. pt updated.
[2022-06-22] MEDS: 0.9% Saline Lock 10 ML Syringe IV (12:20)
[2022-06-22] MEDS: 0.9% Normal Saline 1,000 ML 999 ML IV (12:20)
[2022-06-22 13:38] VITALS: BP 101/56; PULSE 88; RESP 18; TEMP 36.9; O2SAT 93
[2022-06-22 14:34] LABS: Mucous, Urine 0 SEEN /hpf (<or=2+)
[2022-06-22 14:43] LABS: Color, Urine Yellow (Yellow); Glucose, Dipstick Normal (Normal); Ketone-Dipstick Negative (Negative); Leukocyte Esterase-Dipstick 500 /ul (Negative); Nitrite-Dipstick Negative (Negative); Occult Blood-Urine 150 /ul (Negative); Protein-Dipstick 30 mg/dl (Negative); Specific Gravity, Urine 1.015 (1.002-1.030); Urine Bilirubin Dipstick Negative (Negative); Urine Clarity Clear (Clear); Urine Urobilinogen Normal (Normal)
[2022-06-22 14:50] LABS: Hyaline Cast 0-5 SEEN /lpf (0-5)
[2022-06-22 14:51] LABS: Bacteria 1+ /hpf (None Seen); Red Blood Cells-Urine 0-5 SEEN /hpf (0-5); Squamous Epithelial Cells - UA 0-5 SEEN /hpf (0-5)
[2022-06-22 14:52] LABS: White Blood Cells 5-10 SEEN /hpf (0-5)
--- NOTE | 2022-06-22 16:48 | NURSING ---
st cathed pt for 400cc urine. pt unable to void. bladder scanned for 500cc.
[2022-06-22] MEDS: Mirtazapine 15 MG Tablet GT (22:23)
[2022-06-22] MEDS: Atorvastatin Calcium 40 MG Tablet GT (22:24)
[2022-06-23] MEDS: Simethicone 40MG/0.6ML Bottle 80 MG GT ×5 (00:09→23:31)
[2022-06-23 05:50] LABS: Anion Gap 8 (5-15); BUN 49 mg/dL (7-18); BUN/Creat Ratio 30.1 RATIO (10-20); Calcium,Total 8.6 mg/dL (8.5-10.1); Chloride 106 mmol/L (98-107); Creatinine, Serum 1.63 mg/dL (0.70-1.30); EST Glomerular Filtration Rate 44 mL/min (>60); Est Glom Filt Rate - Afr Amer 53 mL/min (>60); Estimated Creatinine Clearance 34.07 ml/min; Glucose 99 mg/dL (74-106); Sodium Level 138 mmol/L (136-145)
[2022-06-23] MEDS: Gabapentin 300 MG Capsule GT ×3 (06:20→22:10)
[2022-06-23] MEDS: Lansoprazole 15 MG Capsule.DR 30 MG GT (06:21)
[2022-06-23] MEDS: Sertraline 50 MG Tablet GT (06:21)
[2022-06-23] MEDS: Nepro with Carbsteady 237 ML Liquid 290 ML GT ×5 (06:21→22:10)
[2022-06-23] MEDS: Midodrine HCl 5 MG Tablet GT ×2 (06:22→14:48)
[2022-06-23] MEDS: Fluticasone/Salmeterol 232-14 Inhaler 1 PUFF INHALATION ×2 (06:25→18:19)
[2022-06-23 06:57] VITALS: BP 112/64; PULSE 100
--- NOTE | 2022-06-23 08:50 | NURSING ---
pt off unit for MD visit
[2022-06-23 10:00] VITALS: PULSE 105; RESP 16; O2SAT 93
--- NOTE | 2022-06-23 10:42 | MDS.RN ---
Addendum entered by Anisha Sanchez 06/23/22 10:45: PDPM codes did not generate with the MDS assessment, [facility] information systems aware. Original Note: Information for the mds was obtained from review of the clinical record, interview of resident, staff, and direct observation of resident's care.
[2022-06-23] MEDS: Aspirin 81 MG TAB.CHEW GT (11:09)
[2022-06-23] MEDS: Potassium Chloride Oral Soln 20 MEQ/15 ML UDC GT (11:09)
--- NOTE | 2022-06-23 11:33 | NURSING ---
pt returned from MD appt. no new written orders obtained. tube feeding given per MAR, no residual noted prior to feed. pt tolerated well. pt urinated upon return from appt. 200cc clear/yellow urine. bladder scan showed 525cc. straight cath performed per MD order. 400cc clear/yellow urine obtained.
[2022-06-23 15:12] VITALS: BP 109/64; PULSE 91; RESP 16; TEMP 36.8; O2SAT 94
[2022-06-23] MEDS: Oxymetazoline 0.05% 1 SPRAY SPRAY.BTL NASAL (18:18)
[2022-06-23] MEDS: Mirtazapine 15 MG Tablet GT (22:10)
[2022-06-23] MEDS: Atorvastatin Calcium 40 MG Tablet GT (22:10)
[2022-06-24 05:34] VITALS: BP 137/79; PULSE 105
[2022-06-24] MEDS: Oxymetazoline 0.05% 1 SPRAY SPRAY.BTL NASAL ×2 (05:39→18:47)
[2022-06-24] MEDS: Fluticasone/Salmeterol 232-14 Inhaler 1 PUFF INHALATION ×2 (05:40→18:46)
[2022-06-24] MEDS: Lansoprazole 15 MG Capsule.DR 30 MG GT (05:42)
[2022-06-24] MEDS: Gabapentin 300 MG Capsule GT ×3 (05:42→22:36)
[2022-06-24] MEDS: Simethicone 40MG/0.6ML Bottle 80 MG GT ×3 (05:42→18:46)
[2022-06-24] MEDS: Sertraline 50 MG Tablet GT (05:42)
[2022-06-24] MEDS: Nepro with Carbsteady 237 ML Liquid 290 ML GT ×5 (05:47→22:37)
[2022-06-24] MEDS: Midodrine HCl 5 MG Tablet GT ×3 (08:15→22:33)
[2022-06-24] MEDS: Aspirin 81 MG TAB.CHEW GT (08:16)
[2022-06-24] MEDS: Potassium Chloride Oral Soln 20 MEQ/15 ML UDC GT (08:16)
[2022-06-24 16:00] VITALS: BP 139/70; PULSE 101; RESP 16; TEMP 37.4; O2SAT 94
[2022-06-24] MEDS: 0.9% Saline Lock 10 ML Syringe IV (18:56)
[2022-06-24] MEDS: Mirtazapine 15 MG Tablet GT (22:32)
[2022-06-24] MEDS: Atorvastatin Calcium 40 MG Tablet GT (22:34)
[2022-06-24 22:40] VITALS: O2SAT 94
[2022-06-25] MEDS: Albuterol IH (6.7 GM) 1 PUFF INHALER 2 PUFF INHALATION (00:35)
[2022-06-25] MEDS: Simethicone 40MG/0.6ML Bottle 80 MG GT ×5 (00:36→23:20)
[2022-06-25] MEDS: Lansoprazole 15 MG Capsule.DR 30 MG GT (06:19)
[2022-06-25] MEDS: Sertraline 50 MG Tablet GT (06:19)
[2022-06-25] MEDS: Gabapentin 300 MG Capsule GT ×3 (06:19→23:14)
[2022-06-25] MEDS: Midodrine HCl 5 MG Tablet GT ×3 (06:20→23:37)
[2022-06-25] MEDS: Fluticasone/Salmeterol 232-14 Inhaler 1 PUFF INHALATION ×2 (06:21→18:08)
[2022-06-25] MEDS: Oxymetazoline 0.05% 1 SPRAY SPRAY.BTL NASAL ×2 (06:21→18:08)
[2022-06-25] MEDS: Nepro with Carbsteady 237 ML Liquid 290 ML GT ×5 (06:21→23:14)
[2022-06-25] MEDS: Potassium Chloride Oral Soln 20 MEQ/15 ML UDC GT (09:57)
[2022-06-25] MEDS: Aspirin 81 MG TAB.CHEW GT (09:57)
[2022-06-25] MEDS: Acetaminophen 650 MG/20 ML UDC 1000 MG GT (09:57)
[2022-06-25 10:00] VITALS: RESP 16; O2SAT 95
[2022-06-25 13:46] VITALS: BP 102/67; PULSE 91; RESP 16; TEMP 36.3; O2SAT 94
[2022-06-25] MEDS: Mirtazapine 15 MG Tablet GT (23:14)
[2022-06-25] MEDS: Atorvastatin Calcium 40 MG Tablet GT (23:14)
--- NOTE | 2022-06-25 23:53 | NURSING ---
Patient bladder scanned after using bathroom. Post void residual 457. Patient refused to be straight cath'd at this time. Will continue to monitor.
[2022-06-26 05:52] LABS: Absolute Lymphocyte Count 0.63 X10^3/uL (0.83-4.51); Absolute Neutrophil Count 11.3 X10^3/uL (2.0-7.7); Basophil# 0.02 X10^3/uL; Basophil% 0.2 % (0-1); Eosinophil# 0.11 X10^3/uL; Eosinophils% 0.8 % (0-5); Hematocrit 25.3 % (40-54); Hemoglobin 7.9 g/dL (13.0-16.5); Lymphocyte # 0.63 X10^3/ul (0.83-4.51); Lymphocyte % 4.8 % (19-41); Mean Corp Hgb Conc 31.2 g/dL (32-36); Mean Corpuscular Hgb 28.4 pg (27.0-32.0); Mean Platelet Vol. 11.7 fl (6.2-12.0); Monocyte# 1.06 X10^3/uL; NRBC Flagged by Analyzer 0 % (0-5); Neutrophil # 11.29 X10^3/uL (2.7-7.7); Neutrophil % 85.4 % (47-70); Platelet Count 232 K/mm3 (150-450); RBC Distribution Width CV 16.9 % (11.6-14.6); RBC Distribution Width SD 56.1 fl (35.1-43.9); Red Blood Count 2.78 M/mm3 (4.6-6.2); White Blood Count 13.2 K/mm3 (4.4-11.0)
[2022-06-26 06:24] LABS: AST(SGOT) 223 U/L (15-37); Alanine Aminotransfer ALT/SGPT 270 U/L (16-61); Albumin, Serum 1.8 g/dL (3.2-5.0); Alkaline Phosphatase 401 U/L (45-117); Anion Gap 8 (5-15); BUN 43 mg/dL (7-18); BUN/Creat Ratio 26.1 RATIO (10-20); Bilirubin, Direct 0.14 mg/dL (0.00-0.30); Chloride 107 mmol/L (98-107); Creatinine, Serum 1.65 mg/dL (0.70-1.30); EST Glomerular Filtration Rate 43 mL/min (>60); Est Glom Filt Rate - Afr Amer 52 mL/min (>60); Globulin 5.2 g/dL (2.2-4.2); Glucose 102 mg/dL (74-106); Potassium 4.3 mmol/L (3.5-5.1); Sodium Level 138 mmol/L (136-145)
[2022-06-26] MEDS: Gabapentin 300 MG Capsule GT ×3 (06:38→21:34)
[2022-06-26] MEDS: Oxymetazoline 0.05% 1 SPRAY SPRAY.BTL NASAL ×2 (06:41→19:06)
[2022-06-26] MEDS: Fluticasone/Salmeterol 232-14 Inhaler 1 PUFF INHALATION ×2 (06:42→19:07)
[2022-06-26] MEDS: Nepro with Carbsteady 237 ML Liquid 290 ML GT ×4 (06:44→21:30)
[2022-06-26] MEDS: Midodrine HCl 5 MG Tablet GT ×3 (06:46→21:34)
[2022-06-26] MEDS: Simethicone 40MG/0.6ML Bottle 80 MG GT ×3 (06:46→21:32)
[2022-06-26] MEDS: Sertraline 50 MG Tablet GT (06:47)
[2022-06-26] MEDS: Lansoprazole 15 MG Capsule.DR 30 MG GT (06:47)
[2022-06-26] MEDS: Potassium Chloride Oral Soln 20 MEQ/15 ML UDC GT (08:35)
[2022-06-26] MEDS: Aspirin 81 MG TAB.CHEW GT (08:36)
[2022-06-26] MEDS: 0.9% Saline Lock 10 ML Syringe IV (10:48)
--- NOTE | 2022-06-26 11:19 | NURSING ---
MESSAGE LEFT FOR CONSULT ORDER VIA ANSWERING SERVICE AT OFFICE, AWAITING RETURN CALL.
--- NOTE | 2022-06-26 11:24 | NURSING ---
FAXED LABS TO [facility]ECT [facility] DR REQUESTED.
[2022-06-26 14:58] VITALS: BP 132/66; PULSE 93; RESP 16; TEMP 37.3; O2SAT 92
--- NOTE | 2022-06-26 16:27 | US_ITS ---
STUDY: ABDOMINAL ULTRASOUND - RIGHT UPPER QUADRANT REASON FOR VISIT: Male, 81 years old. ABDOMEN PAIN cholestatic hepatitis TECHNIQUE: Ultrasound evaluation of the right upper quadrant was performed with real-time and static rhoades-scale imaging. TECHNICAL QUALITY: Adequate. COMPARISON: CT 04/24/2022 FINDINGS: Liver: There is normal echogenicity of the liver. The bile ducts are within normal limits. There is hepatic color flow. The direction of portal flow is hepatopetal. There is no demonstrated mass lesion. Gallbladder: Normal distended gallbladder. The gallbladder wall measures 2 mm. There is a negative sonographic Bradley''s sign. There is no pericholecystic fluid. There are multiple echogenic structures within the gallbladder, consistent with multiple gallstones. There is biliary possible adherent tumefactive sludge vs gallbladder wall mass. Common Bile Duct (C.B.D.): The common bile duct measures ( in mm): 4 Pancreas: Normal size of the head, body of the pancreas. There is normal echogenicity of the pancreas. There is no demonstrated pancreatic mass or cyst. Right Kidney: Normal size of the right kidney. The right kidney measures 11 cm. . Normal renal cortex. There are multiple cysts. Largest measures 47 x 47 mm. Thick a follow-up There is no right hydronephrosis. Aorta: It is not visualized. There is too much overlying bowel gas. . US/Liver IMPRESSION: There are multiple echogenic structures within the gallbladder, consistent with multiple gallstones. There is biliary possible adherent tumefactive sludge vs gallbladder wall mass. Electronically Signed: Felix Hamlin MD at 20:37 EDT ,
--- NOTE | 2022-06-26 16:40 | NURSING ---
Call from US about new order for liver US. They want patient to be NPO before test. Informed US that patient on tube feeds, last bolus around 1430. US to be done tonight at 8pm, meds/tube feed to be held until after procedure.
[2022-06-26 16:53] LABS: Ferritin 189 ng/mL (26-388)
[2022-06-26 17:07] LABS: CPK Total, Creatine Kinase 27 U/L (39-308)
[2022-06-26 17:15] LABS: Erythrocyte Sedimentation Rate 74 mm/hr (0-20)
[2022-06-26 17:52] LABS: International Normalized Ratio 1.3; Prothrombin Time (Protime)PT. 15.5 SECONDS (11.7-14.9)
[2022-06-26 18:54] LABS: Acetaminophen (Tylenol) Level < 2.0 ug/mL (10.0-30.0)
--- NOTE | 2022-06-26 19:42 | CON.PCM_ITS ---
Assessment & Plan Assessment/Plan (1) Increased liver enzymes: PLAN: The differential diagnosis for increased liver enzymes in the setting of chronic elevation of liver enzymes would be medications, nonalcoholic steatohepatitis, cholestatic hepatitis, hepatocellular injury secondary to hypotension causing mild ischemic hepatitis. He did have 1 episode of hypotension. In the setting peripheral vascular disease, aortic aneurysm and history of TIA I suspect that he does have some arthrosclerotic disease around the area of the daisha hepatis which could lead to transient ischemic hepatitis without acute liver failure. His acetaminophen level is within normal limits. He still would benefit from N-acetylcysteine as it has some efficacy in acute liver injury until we find out the etiology of his elevated liver enzymes. He may need a liver biopsy. I will also order an ultrasound to see if any signs of ductal dilation to see if there is any signs of cholestasis. Once laboratory analysis is complete we will have a better idea regarding the possible diagnosis. 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 He also has a history of recurrent esophageal stricture secondary to hiatal hernia and gastroesophageal reflux disease, stage III CKD, BPH, hyperlipidemia, nicotine addiction and possible COPD along with osteoarthritis, AAA. He also has a history of left right internal carotid artery stenosis status post stent and stenosis of the left internal carotid artery with diagnosis of acute CVA.? This was treated with tPA and patient was transferred to [facility] for rehab.? While in rehab he was evaluated by ENT and gastroenterology.He underwent nasopharyngoscopy and laryngoscopy which showed a normal base of the tongue without lesion or mass, lateral and posterior pharyngeal meraz appeared normal, he had postradiation erythema but no epiglottic lesions were seen. He was diagnosed with a nonfunctional larynx: Oropharyngeal dysphagia resulting in need for PEG tube.? He has had 2 PEG tubes placed.? His recent PEG tube was placed back in 05/22/2022.? I was asked to see him due to a crack in the midporti on of the PEG tube.? He has also been experiencing chronic constipation.? As per nursing he is having bowel movement possibly every 3 days.? He was given magnesium citrate and he had a small bowel movement.? Imaging with a abdominal x-ray had shown persistent ileus of the colon without signs of obstruction. I took him for percutaneous PEG replacement and he did very well. I was asked to see him currently due to the fact that he had an increase in his liver enzymes.0.30, Direct Bilirubin 0.14, AST 223 H, ALT 270 H, Alkaline Phosphatase 401 H, Total Protein 7.0, Albumin 1.8 L, Globulin 5.2 H. He does not have any history of chronic hepatitis C, chronic hepatitis B, autoimmune hepatitis, hemochromatosis. He does have a history of mildly elevated LFTs. He has been receiving intermittent acetaminophen. I ordered an acetaminophen level and it was less than 2. I also ordered an acute hepatitis panel which is pending along with other labs for chronic hepatitis. [facility] Medical History Arthritis Back pain Benign neoplasm of colon Bifascicular bundle branch block BPH (benign prostatic hypertrophy) Cancer Cardiology follow-up encounter Chest pain Chronic cough Former smoker Former smoker Gastric reflux Grade I diastolic dysfunction History of echocardiogram History of hypertension History of pain when walking History of steroid therapy History of stress test Hoarseness Hypertension Injury of head and neck Loss of consciousness Lumbar spinal stenosis Osteoarthritis of left knee Pharyngeal cancer Rhinitis Shortness of breath on exertion Silent aspiration TIA (transient ischemic attack) Wears dentures Wears glasses Home Medications albuterol sulfate 90 mcg/actuation aerosol inhaler 2 puff inhalation Q6H PRN PRN Sob &/Or Wheezing 10/01/19 [History Last Taken Unknown] acetaminophen 500 mg tablet 1,000 mg PO Q6H PRN Pain Score 1-5/10 10/31/19 [Rx Last Taken Unknown] atorvastatin 40 mg tablet 80 mg feeding tube QHS cholesterol 12/08/21 [History Last Taken Unknown] gabapentin 300 mg/6 mL (6 mL) oral solution 300 mg feeding tube TID Check with primary doctor 05/28/22 [History Last Taken Unknown] guar gum 1 tbsp feeding tube BID bowel mobility 05/28/22 [History Last Taken Unknown] mirtazapine 15 mg tablet 15 mg feeding tube QHS sleep/appetite 05/28/22 [History Last Taken Unknown] sertraline 25 mg tablet 25 mg feeding tube DAILY depression 05/28/22 [History Last Taken Unknown] Arthritis Pain Compound 0 click topical BID pain 06/11/22 [History Last Taken Unknown] aspirin 81 mg chewable tablet 324 mg G-tube DAILYCM blood thinner 06/11/22 [History Last Taken Unknown] bisacodyl 10 mg rectal suppository 10 mg [place] .PRN X 1 PRN Constipation #0 ea 06/11/22 [Rx Last Taken Unknown] fluticasone 232 mcg-salmeterol 14 mcg/actuation breath activated powdr 1 inh inhalation Q12 shortness of breath/wheezing 06/11/22 [History Last Taken Unknown] guar gum 1 tbsp feeding tube BID ##0 06/11/22 [Rx Last Taken Unknown] lansoprazole 15 mg capsule,delayed release 30 mg PO DAILY acid 06/11/22 [History Last Taken Unknown] magnesium hydroxide 400 mg/5 mL oral suspension 30 ml PO .PRN X 1 PRN Constipation #0 mL 06/11/22 [Rx Last Taken Unknown] menthol 0.44 %-zinc oxide 20.6 % topical ointment (Calmoseptine) 1 applic topical BID skin protectant 06/11/22 [History Last Taken Unknown] midodrine 5 mg tablet 5 mg G-tube TID BP 06/11/22 [History Last Taken Unknown] nut.tx.imp.renal fxn,lac-reduc 0.08 gram-1.8 kcal/mL oral liquid (Nepro Carb Steady) 250 ml G-tube 5X/DAY supplement 06/11/22 [History Last Taken Unknown] nystatin 100,000 unit/gram topical powder (Nyamyc) 1 applic topical BID redness/moisture 06/11/22 [History Last Taken Unknown] nystatin-triamcinolone 100,000 unit/g-0.1 % topical cream 1 applic topical BID@0600,2200 topical treatment 06/11/22 [History Last Taken Unknown] oxycodone 5 mg tablet 5 mg PO Q4H PRN PRN Pain Score 1-10 #0 tabs 06/11/22 [Rx Last Taken Unknown] simethicone 40 mg/0.6 mL oral drops,suspension (Infants Simethicone) 80 mg G- tube Q6 digestion 06/11/22 [History Last Taken Unknown] zolpidem 5 mg tablet 5 mg PO QHS PRN PRN Insomnia #1 TAB 06/11/22 [Rx Last Taken Unknown] Allergy/AdvReac Type Severity Reaction Status Date / Time mold Allergy NEEDS Verified 05/08/22 17:10 FOLLOW-UP house dust AdvReac SNEEZING Verified 05/08/22 17:10 morphine AdvReac Vomiting Verified 05/08/22 17:10 poison kayleen extract AdvReac Rash Verified 05/08/22 17:10 Family History Mother CAD (coronary artery disease) Brother COPD (chronic obstructive pulmonary disease) Surgical History H/O hernia repair History of cardiac catheterization History of esophageal dilatation History of laminectomy History of tonsillectomy Hx of colonoscopy Internal carotid artery stent present S/P total knee arthroplasty Spinal cord stimulator status Status post insertion of percutaneous endoscopic gastrostomy (PEG) tube Status post total left knee replacement Ureteral stent present Social History household members: none housing: house number of children: 0 current occupational status: retired Smoking Status: Former smoker Smokeless tobacco user: chewing tobacco and other how long ago did patient quit smokin alcohol intake: former substance use type: does not use ROS Constitutional Constitutional: Denies chills, fever(s) or weight gain ENT HEENT: Denies headache(s), nasal congestion or nasal discharge Cardiovascular Cardiovascular: Denies chest pain or palpitations Respiratory/Chest Respiratory/Chest: Denies cough, excessive phlegm production or shortness of breath with exertion Gastrointestinal Gastrointestinal: Denies abdominal pain, nausea or vomiting Genitourinary Genitourinary: Denies dysuria Musculoskeletal Musculoskeletal: Denies joint pain or joint swelling Integumentary Integumentary: Denies rash or wounds Neurologic Neurologic: Denies focal weakness, numbness or tingling Psychiatric Psychiatric: Denies anxiety, auditory hallucinations, depression, homicidal ideation or suicidal ideation Physical Exam Const alert General Appearance: cooperative HEENT normocephalic Eyes PERRL and EOMs intact bilaterally Neck supple, no JVD and no carotid bruits Resp normal respiratory effort, normal air movement and clear to auscultation bilaterally Cardio regular rate and regular rhythm GI normal to inspection, nondistended, normoactive bowel sounds, non-tender and non-distended GI Narrative: PEG present. Extremity normal capillary refill General Extremity: Negative for edema Skin no rashes or lesions noted General Skin Exam: no breakdown Psych affect normal Appearance: appropriate Medical Records Data Medical Nutrition Assessment Dietitian: Malnutrition Criteria Met Start: 06/12/22 08:55 Freq: Status: Active Protocol: Document 06/16/22 15:30 (Rec: 06/16/22 15:30 AG [id number]) Nutrition Malnutrition Evidence of Malnutrition Exists Yes Malnutrition (severe): Chronic Evidenced By Suboptimal Energy Intake ( Severe),Weight Loss (Severe), Physical Changes (Severe) Clinical Problem Chronic Disease or Condition Related Malnutrition Etiology severe, chronic malnutrition related to inadequate energy intake d/t swallowing difficulities Signs/Symptoms as evidenced by estimated PO intake meeting <75% of estimated energy needs >3 months; unintentional wt loss of ~27#/16%; obvious, severe muscle wasting fat loss evident in orbital, clavicle, acromion, and temporal areas per physical exam; BMI 18.3 Status Active Problem Recommendation Dietitian Recommendations/Changes Via PEG- Nepro bolus feeds 237mL 5x/day with 100mL H2O flush before and after each bolus to provide 2100 calories , 95 g protein. Will continue w/ 100mL H2O flush before and after each bolus; will adjust additional flushes to 200mL H2O flush every 4 hours to provide ~3060mL total fluid per day (860 water from TF, 1000mL from TF flushes, 1200mL additional flush). Currently meets 100% of estimated energy needs; will adjust boluses if Res able to resume PO diet. Lab / Micro Data Result Diagrams: 06/26/22 05:20 06/26/22 05:20 Labs: Laboratory Results - last 24 hr 06/26/22 05:20: WBC 13.2 H, RBC 2.78 L, Hgb 7.9 L, Hct 25.3 L, MCV 91.0, MCH 28.4, MCHC 31.2 L, RDW Std Deviation 56.1 H, RDW Coeff of [place] 16.9 H, Plt Count 232, MPV 11.7, Immature Gran % (Auto) 0.800, Neut % (Auto) 85.4 H, Lymph % (Auto) 4.8 L, [place] % (Auto) 8.0, Eos % (Auto) 0.8, Baso % (Auto) 0.2, Absolute Neuts (auto) 11.3 H, Absolute Lymphs (auto) 0.63 L, Nucleated RBC % 0 06/26/22 05:20: Sodium 138, Potassium 4.3, Chloride 107, Carbon Dioxide 23.0, Anion Gap 8, BUN 43 H, Creatinine 1.65 H, Estim Creat Clear Calc 34.00, Est GFR (MDRD) Af Amer 52 L, Est GFR (MDRD) Non-Af 43 L, BUN/Creatinine Ratio 26.1 H, Glucose 102, Calcium 9.0, Total Bilirubin 0.30, Direct Bilirubin 0.14, AST 223 H , ALT 270 H, Alkaline Phosphatase 401 H, Total Protein 7.0, Albumin 1.8 L, Globulin 5.2 H 06/26/22 05:20: ESR 74 H 06/26/22 05:20: Ferritin 189, C-React Prot Ext Range 255.00 H 06/26/22 05:20: Total Creatine Kinase 27 L 06/26/22 17:15: Acetaminophen < 2.0 L 06/26/22 17:15: PT 15.5 H, INR 1.3 Micro: Microbiology 06/26/22 18:43 Nasal Secretion SARS-CoV-2 Antigen (Rapid) - Final Charges/Coding Visit Charges Inpatient E&M: 19729 Init Hosp L2
[2022-06-26] MEDS: Mirtazapine 15 MG Tablet GT (21:34)
[2022-06-26] MEDS: Atorvastatin Calcium 40 MG Tablet GT (21:34)
[2022-06-26] MEDS: Acetylcysteine (Mucomyst Oral) 20% SOLN 1200 MG PO (21:36)
[2022-06-26 21:50] VITALS: PULSE 97; RESP 16; O2SAT 97
[2022-06-27] MEDS: Lansoprazole 15 MG Capsule.DR 30 MG GT (06:11)
[2022-06-27] MEDS: Oxymetazoline 0.05% 1 SPRAY SPRAY.BTL NASAL ×2 (06:11→18:07)
[2022-06-27] MEDS: Acetylcysteine (Mucomyst Oral) 20% SOLN 1200 MG PO ×2 (06:12→18:05)
[2022-06-27] MEDS: Midodrine HCl 5 MG Tablet GT ×3 (06:12→22:10)
[2022-06-27] MEDS: Sertraline 50 MG Tablet GT (06:13)
[2022-06-27] MEDS: Nepro with Carbsteady 237 ML Liquid 290 ML GT ×5 (06:14→22:10)
[2022-06-27] MEDS: Fluticasone/Salmeterol 232-14 Inhaler 1 PUFF INHALATION ×2 (06:14→18:05)
[2022-06-27] MEDS: Simethicone 40MG/0.6ML Bottle 80 MG GT ×3 (06:14→18:06)
[2022-06-27] MEDS: Gabapentin 300 MG Capsule GT ×3 (06:26→22:05)
[2022-06-27] MEDS: Ursodiol 250 MG Tablet PO ×3 (09:11→18:07)
[2022-06-27] MEDS: Aspirin 81 MG TAB.CHEW GT (09:11)
[2022-06-27] MEDS: Potassium Chloride Oral Soln 20 MEQ/15 ML UDC GT (09:11)
[2022-06-27] MEDS: 0.9% Saline Lock 10 ML Syringe IV ×2 (10:46→22:07)
[2022-06-27 14:02] VITALS: BP 118/78; PULSE 97; RESP 18; TEMP 36.8; O2SAT 96
--- NOTE | 2022-06-27 14:18 | NURSING ---
no residual from 10a & 2p feeds. pt tolerated well. added extra water 200cc each feed.
[2022-06-27 20:52] VITALS: PULSE 98; RESP 18; O2SAT 98
[2022-06-27 21:45] VITALS: BP 146/82; PULSE 98; RESP 16
[2022-06-27] MEDS: Mirtazapine 15 MG Tablet GT (22:10)
[2022-06-27] MEDS: Atorvastatin Calcium 40 MG Tablet GT (22:10)
[2022-06-28] MEDS: Simethicone 40MG/0.6ML Bottle 80 MG GT ×5 (00:43→23:51)
[2022-06-28 07:00] VITALS: BP 132/77; PULSE 90; RESP 18
[2022-06-28] MEDS: Fluticasone/Salmeterol 232-14 Inhaler 1 PUFF INHALATION ×2 (07:04→18:13)
[2022-06-28] MEDS: Lansoprazole 15 MG Capsule.DR 30 MG GT (07:06)
[2022-06-28] MEDS: Oxymetazoline 0.05% 1 SPRAY SPRAY.BTL NASAL ×2 (07:06→18:13)
[2022-06-28] MEDS: Midodrine HCl 5 MG Tablet GT ×3 (07:09→22:35)
[2022-06-28] MEDS: Sertraline 50 MG Tablet GT (07:09)
[2022-06-28] MEDS: Ursodiol 250 MG Tablet PO ×3 (07:10→18:14)
[2022-06-28] MEDS: Potassium Chloride Oral Soln 20 MEQ/15 ML UDC GT (07:10)
[2022-06-28] MEDS: Aspirin 81 MG TAB.CHEW GT (07:11)
[2022-06-28] MEDS: Nepro with Carbsteady 237 ML Liquid 290 ML GT ×2 (07:11→10:01)
[2022-06-28] MEDS: Gabapentin 300 MG Capsule GT ×3 (07:15→22:35)
[2022-06-28 10:00] VITALS: PULSE 84; RESP 18; O2SAT 96
[2022-06-28] MEDS: Acetylcysteine (Mucomyst Oral) 20% SOLN 1200 MG PO ×2 (10:00→18:14)
--- NOTE | 2022-06-28 10:41 | NURSING ---
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
[2022-06-28 11:58] LABS: CMV Acute Antibody IgM < 30.0 AU/mL (0.0-29.9)
[2022-06-28 14:32] VITALS: BP 123/77; PULSE 62; RESP 17; TEMP 37.2; O2SAT 93
[2022-06-28] MEDS: Nepro with Carbsteady 237 ML Liquid 360 ML GT ×2 (14:39→18:16)
[2022-06-28] MEDS: Atorvastatin Calcium 40 MG Tablet GT (22:35)
[2022-06-28] MEDS: Mirtazapine 15 MG Tablet GT (22:35)
[2022-06-28] MEDS: 0.9% Saline Lock 10 ML Syringe IV (22:47)
[2022-06-29] MEDS: Lansoprazole 15 MG Capsule.DR 30 MG GT (06:41)
[2022-06-29] MEDS: Gabapentin 300 MG Capsule GT ×3 (06:41→22:34)
[2022-06-29] MEDS: Simethicone 40MG/0.6ML Bottle 80 MG GT ×3 (06:42→18:03)
[2022-06-29] MEDS: Midodrine HCl 5 MG Tablet GT ×3 (06:46→22:35)
[2022-06-29] MEDS: Oxymetazoline 0.05% 1 SPRAY SPRAY.BTL NASAL ×2 (06:47→18:00)
[2022-06-29] MEDS: Fluticasone/Salmeterol 232-14 Inhaler 1 PUFF INHALATION ×2 (06:47→18:01)
[2022-06-29] MEDS: Nepro with Carbsteady 237 ML Liquid 360 ML GT (06:48)
[2022-06-29] MEDS: Acetylcysteine (Mucomyst Oral) 20% SOLN 1200 MG PO ×2 (06:50→18:07)
[2022-06-29] MEDS: Sertraline 50 MG Tablet GT (06:52)
[2022-06-29 07:44] VITALS: BP 122/79; PULSE 81; RESP 16
[2022-06-29] MEDS: Potassium Chloride Oral Soln 20 MEQ/15 ML UDC GT (09:36)
[2022-06-29] MEDS: Aspirin 81 MG TAB.CHEW GT (09:36)
[2022-06-29] MEDS: Ursodiol 250 MG Tablet PO ×3 (09:36→18:00)
[2022-06-29] MEDS: NEPRO TUBE FEED 1,000 ML LIQUID 360 ML GT ×3 (10:00→17:55)
[2022-06-29 13:52] LABS: Anti-Mitochondrial AB <20.0 Units (0.0-20.0)
[2022-06-29 14:00] VITALS: BP 102/69; PULSE 96; RESP 16; TEMP 36.7; O2SAT 99
[2022-06-29 14:08] LABS: HEPATITIS B SURFACE AG Negative (Negative); Hep C Antibodies <0.1 s/co ratio (0.0-0.9); Hepatitis A IgM Antibody Negative (Negative); Hepatitis B Core AB IgM Negative (Negative)
[2022-06-29 15:58] LABS: Aldolase 9.2 U/L (3.3-10.3)
[2022-06-29 16:09] LABS: Endomysial Antibody IgA Negative (Negative); Immunoglobulin A 201 mg/dL (61-437)
[2022-06-29 18:54] LABS: Anti-Smooth Muscle ABS 15 Units (0-19); Deamidated Gliadin IgA 6 units (0-19); Deamidated Gliadin IgG 3 units (0-19); t-Transglutaminase IgA <2 U/mL (0-3)
[2022-06-29 18:54] LABS: ALB/GLOB Ratio 0.3 RATIO (0.9-2.4); AST(SGOT) 171 U/L (15-37); Alanine Aminotransfer ALT/SGPT 229 U/L (16-61); Alkaline Phosphatase 739 U/L (45-117); Anion Gap 8 (5-15); BUN 50 mg/dL (7-18); BUN/Creat Ratio 34.7 RATIO (10-20); Calcium,Total 9.6 mg/dL (8.5-10.1); Chloride 102 mmol/L (98-107); Creatinine, Serum 1.44 mg/dL (0.70-1.30); EST Glomerular Filtration Rate 50 mL/min (>60); Est Glom Filt Rate - Afr Amer 61 mL/min (>60); Estimated Creatinine Clearance 38.16 ml/min; Globulin 5.8 g/dL (2.2-4.2); Glucose 108 mg/dL (74-106); Potassium 4.6 mmol/L (3.5-5.1); Protein, Total 7.8 g/dL (6.4-8.2); Sodium Level 135 mmol/L (136-145)
[2022-06-29 18:55] LABS: Erythrocyte Sedimentation Rate 72 mm/hr (0-20)
[2022-06-29] MEDS: Atorvastatin Calcium 40 MG Tablet GT (22:34)
[2022-06-29] MEDS: Mirtazapine 15 MG Tablet GT (22:35)
[2022-06-30] MEDS: Simethicone 40MG/0.6ML Bottle 80 MG GT ×5 (06:46→23:17)
[2022-06-30] MEDS: Oxymetazoline 0.05% 1 SPRAY SPRAY.BTL NASAL ×2 (06:48→18:28)
[2022-06-30] MEDS: Fluticasone/Salmeterol 232-14 Inhaler 1 PUFF INHALATION ×2 (06:49→18:28)
[2022-06-30] MEDS: NEPRO TUBE FEED 1,000 ML LIQUID 360 ML GT ×4 (06:49→18:30)
[2022-06-30] MEDS: Gabapentin 300 MG Capsule GT ×3 (06:49→20:19)
[2022-06-30] MEDS: Acetylcysteine (Mucomyst Oral) 20% SOLN 1200 MG PO ×2 (06:51→20:11)
[2022-06-30] MEDS: Midodrine HCl 5 MG Tablet GT ×3 (06:52→20:14)
[2022-06-30] MEDS: Sertraline 50 MG Tablet GT (06:52)
[2022-06-30] MEDS: Aspirin 81 MG TAB.CHEW GT (08:17)
[2022-06-30] MEDS: Potassium Chloride Oral Soln 20 MEQ/15 ML UDC GT (08:17)
[2022-06-30] MEDS: Ursodiol 250 MG Tablet PO ×3 (08:17→18:28)
[2022-06-30 13:03] VITALS: BP 112/74; PULSE 86; RESP 16; TEMP 36.9; O2SAT 95
[2022-06-30 14:29] LABS: Anti-Centromere B Ab <0.2 AI (0.0-0.9); Anti-Chromatin <0.2 AI (0.0-0.9); Anti-Jo <0.2 AI (0.0-0.9); Anti-Scleroderma-70 AB <0.2 AI (0.0-0.9); RNP Ab 0.7 AI (0.0-0.9); SJOGREN'S Anti-SS-A test < 0.2 AI (0.0-0.9); SJOGREN'S Anti-SS-B test < 0.2 AI (0.0-0.9); Smith Ab <0.2 AI (0.0-0.9)
[2022-06-30 16:13] LABS: Anti-dsDNA Ab <1 IU/mL (0-9)
[2022-06-30 17:57] LABS: EBV Acute VCA IgM < 36.0 U/mL (0.0-35.9); EBV-VCA IgG > 600.0 U/mL (0.0-17.9)
[2022-06-30 18:03] LABS: Absolute Lymphocyte Count 0.53 X10^3/uL (0.83-4.51); Absolute Neutrophil Count 10.8 X10^3/uL (2.0-7.7); Basophil# 0.05 X10^3/uL; Basophil% 0.4 % (0-1); Eosinophil# 0.29 X10^3/uL; Eosinophils% 2.2 % (0-5); Hematocrit 25.3 % (40-54); Hemoglobin 7.9 g/dL (13.0-16.5); Lymphocyte # 0.53 X10^3/ul (0.83-4.51); Mean Corp Hgb Conc 31.2 g/dL (32-36); Mean Corpuscular Volume 89.7 fL (80-94); Mean Platelet Vol. 10.5 fl (6.2-12.0); Monocyte# 1.05 X10^3/uL; NRBC Flagged by Analyzer 0 % (0-5); Neutrophil # 10.77 X10^3/uL (2.7-7.7); Neutrophil % 81.5 % (47-70); POSITIVE DIFFERENTIAL YES; Platelet Count 430 K/mm3 (150-450); RBC Distribution Width CV 17.2 % (11.6-14.6); RBC Distribution Width SD 56.9 fl (35.1-43.9); Red Blood Count 2.82 M/mm3 (4.6-6.2); White Blood Count 13.2 K/mm3 (4.4-11.0)
--- NOTE | 2022-06-30 18:15 | PCM.PROGNOTE ---
Subjective Subjective Patient without any complaints. He is tolerating his tube feedings. Objective Data Objective Data Vital Signs: Vital Signs Temp Pulse Resp BP Pulse Ox O2 Del Method 98.4 F 86 16 112/74 95 Room Air 06/30/22 13:03 06/30/22 13:03 06/30/22 13:03 06/30/22 13:03 06/30/22 13:03 06/30/22 13:03 Oxygen Delivery Method Room Air Weight: 146 lb 2 oz Body Mass Index (BMI) 18.3 Intake & Output: Intake and Output for Last 24 Hours 06/28/22 06/29/22 06/30/22 23:59 23:59 23:59 Intake Total 290 / 290 360 / 360 1320 / 1320 Balance 290 / 290 360 / 360 1320 / 1320 Medical Nutrition Assessment Dietitian: Malnutrition Criteria Met Start: 06/12/22 08:55 Freq: Status: Active Protocol: Document 06/16/22 15:30 AG (Rec: 06/16/22 15:30 AG [id number]) Nutrition Malnutrition Evidence of Malnutrition Exists Yes Malnutrition (severe): Chronic Evidenced By Suboptimal Energy Intake ( Severe),Weight Loss (Severe), Physical Changes (Severe) Clinical Problem Chronic Disease or Condition Related Malnutrition Etiology severe, chronic malnutrition related to inadequate energy intake d/t swallowing difficulities Signs/Symptoms as evidenced by estimated PO intake meeting <75% of estimated energy needs >3 months; unintentional wt loss of ~27#/16%; obvious, severe muscle wasting fat loss evident in orbital, clavicle, acromion, and temporal areas per physical exam; BMI 18.3 Status Active Problem Recommendation Dietitian Recommendations/Changes Via PEG- Nepro bolus feeds 237mL 5x/day with 100mL H2O flush before and after each bolus to provide 2100 calories , 95 g protein. Will continue w/ 100mL H2O flush before and after each bolus; will adjust additional flushes to 200mL H2O flush every 4 hours to provide ~3060mL total fluid per day (860 water from TF, 1000mL from TF flushes, 1200mL additional flush). Currently meets 100% of estimated energy needs; will adjust boluses if Res able to resume PO diet. Lab / Micro Data Result Diagrams: 06/26/22 05:20 06/29/22 18:07 Labs: Laboratory Results - last 24 hr 06/26/22 17:15: IgA 201, Anti-Smooth Muscle Ab 15, Endomysial IgA Ab Negative, Tiss Transglutamin IgG 7 H, Tiss Transglutamin IgA <2, Anti-Gliadin IgG Ab 3, Anti-Gliadin IgA Ab 6 06/26/22 17:15: EBV Capsid Ag IgG Ab > 600.0 H, EBV Capsid Ag IgM Ab < 36.0, EBV Nuclear Ag IgG Ab 320.0 H, EBV Antibody Interp Comment, Hepatitis A IgM Ab Negative, Hep Bs Antigen Negative, Hep B Core IgM Ab Negative, Hepatitis C Ab (EIA) <0.1, Hep C Ab Comment Comment 06/27/22 06:45: ALEXIS-1 Antibody <0.2, SS-A/Ro IgG Antibody < 0.2, SS-B/La IgG Antibody < 0.2, Sm (Jenkins) Antibody <0.2, PROGRESSIVE ASSEMBLER AND FITTER Antibody 0.7, Scl-70 Scleroderma Ab <0.2, Double Strand DNA Ab <1, Centromere B Antibody <0.2 06/29/22 18:07: Sodium 135 L, Potassium 4.6, Chloride 102, Carbon Dioxide 25.0, Anion Gap 8, BUN 50 H, Creatinine 1.44 H, Estim Creat Clear Calc 38.16, Est GFR (MDRD) Af Amer 61, Est GFR (MDRD) Non-Af 50 L, BUN/Creatinine Ratio 34.7 H, Glucose 108 H, Calcium 9.6, Total Bilirubin 0.30, AST 171 H, ALT 229 H, Alkaline Phosphatase 739 H, Total Protein 7.8, Albumin 2.0 L, Globulin 5.8 H, Albumin/Globulin Ratio 0.3 L 06/29/22 18:07: ESR 72 H 06/29/22 18:07: C-React Prot Ext Range 186.00 H Micro: Microbiology 06/26/22 18:43 Nasal Secretion SARS-CoV-2 Antigen (Rapid) - Final 06/22/22 14:30 Urine, Clean Catch Urine Culture - Final Mixed Gram Pos & Gram Neg Org 06/18/22 06:20 Nasal Secretion SARS-CoV-2 Antigen (Rapid) - Final 06/12/22 00:00 Nasal Secretion SARS-CoV-2 Antigen (Rapid) - Final Physical Exam Const alert General Appearance: cooperative HEENT normocephalic Eyes PERRL and EOMs intact bilaterally Neck supple, no JVD and no carotid bruits Resp normal respiratory effort, normal air movement and clear to auscultation bilaterally Cardio regular rate and regular rhythm GI normal to inspection, nondistended, normoactive bowel sounds, non-tender and non-distended GI Narrative: PEG present. Extremity normal capillary refill General Extremity: Negative for edema Skin no rashes or lesions noted General Skin Exam: no breakdown Psych affect normal Appearance: appropriate Assessment & Plan Assessment/Plan (1) Increased liver enzymes: PLAN: His ultrasound reported: There are multiple echogenic structures within the gallbladder, consistent with multiple gallstones.? There is biliary possible adherent tumefactive sludge vs gallbladder wall mass. He is not having any abdominal pain. However his alkaline phosphatase continues to rise in the setting of a normal mitochondrial antibody which would if positive make me think he has primary biliary cirrhosis. However the possibility is primary sclerosing cholangitis which would not be seen on an ultrasound versus choledocholithiasis as the etiology of his elevated liver enzymes and extremely elevated and rising alkaline phosphatase. This is not consistent with a drug reaction in the setting of multiple echogenic structures in the gallbladder. The only problem is that his common bile duct is only 4 mm and in the setting I would normally get an MRCP but I do not think I can get a MRCP with his back stimulator. He may need an ERCP. (2) Celiac disease: PLAN: His tissue transglutaminase is elevated which is very sensitive and specific for celiac disease. Dietary should be consulted regarding tube feedings that are gluten-free for him. In some cases you can get elevation in liver enzymes secondary to celiac disease. However I would not expect the alkaline phosphatase to go up so high. Charges/Coding Visit Charges Inpatient E&M: 36477 SNF Subs L2
[2022-06-30 18:26] LABS: Differential Indicated SCAN CRITERIA MET
[2022-06-30 18:45] LABS: Anisocytosis RARE; Platelet Estimate SLT INC (ADEQ); Red Cell Morphology N CHROM NORMAL (NORM C&C)
[2022-06-30 18:46] LABS: Hypochromasia 1+; Macrocytosis RARE
[2022-06-30] MEDS: Atorvastatin Calcium 40 MG Tablet GT (20:14)
[2022-06-30] MEDS: Mirtazapine 15 MG Tablet GT (20:14)
--- NOTE | 2022-06-30 20:42 | NURSING ---
Administered hs medications through peg, 8 mL of residual noted. area in tact.
[2022-06-30 21:15] VITALS: PULSE 104
[2022-07-01] MEDS: Acetylcysteine (Mucomyst Oral) 20% SOLN 1200 MG PO (06:15)
[2022-07-01] MEDS: Sertraline 50 MG Tablet GT (06:15)
[2022-07-01] MEDS: Midodrine HCl 5 MG Tablet GT ×2 (06:15→13:49)
[2022-07-01] MEDS: Gabapentin 300 MG Capsule GT ×2 (06:15→13:51)
[2022-07-01] MEDS: Simethicone 40MG/0.6ML Bottle 80 MG GT ×2 (06:16→13:48)
[2022-07-01] MEDS: NEPRO TUBE FEED 1,000 ML LIQUID 360 ML GT ×3 (06:16→13:53)
[2022-07-01] MEDS: Fluticasone/Salmeterol 232-14 Inhaler 1 PUFF INHALATION (06:16)
[2022-07-01] MEDS: Ursodiol 250 MG Tablet PO ×2 (08:51→13:49)
[2022-07-01] MEDS: Aspirin 81 MG TAB.CHEW GT (08:52)
[2022-07-01] MEDS: Potassium Chloride Oral Soln 20 MEQ/15 ML UDC GT (08:52)
[2022-07-01 13:13] LABS: Absolute Neutrophil Count 12.3 X10^3/uL (2.0-7.7); Basophil# 0.06 X10^3/uL; Basophil% 0.4 % (0-1); Eosinophil# 0.31 X10^3/uL; Hematocrit 24.3 % (40-54); Hemoglobin 7.6 g/dL (13.0-16.5); Mean Corp Hgb Conc 31.3 g/dL (32-36); Mean Corpuscular Hgb 28.1 pg (27.0-32.0); Mean Platelet Vol. 10.2 fl (6.2-12.0); Monocyte# 1.24 X10^3/uL; Monocyte% 8.2 % (0-10); NRBC Flagged by Analyzer 0 % (0-5); Neutrophil # 12.27 X10^3/uL (2.7-7.7); POSITIVE DIFFERENTIAL YES; Platelet Count 485 K/mm3 (150-450); RBC Distribution Width CV 17.3 % (11.6-14.6); RBC Distribution Width SD 57.4 fl (35.1-43.9); White Blood Count 15.1 K/mm3 (4.4-11.0)
[2022-07-01 13:29] LABS: Erythrocyte Sedimentation Rate 49 mm/hr (0-20)
[2022-07-01 13:30] LABS: Differential Indicated SCAN CRITERIA MET
[2022-07-01 13:56] LABS: ALB/GLOB Ratio 0.4 RATIO (0.9-2.4); AST(SGOT) 106 U/L (15-37); Alanine Aminotransfer ALT/SGPT 163 U/L (16-61); Alkaline Phosphatase 637 U/L (45-117); Amylase 184 U/L (25-115); Anion Gap 6 (5-15); BUN 56 mg/dL (7-18); BUN/Creat Ratio 36.1 RATIO (10-20); Calcium,Total 9.6 mg/dL (8.5-10.1); Chloride 105 mmol/L (98-107); Creatinine, Serum 1.55 mg/dL (0.70-1.30); EST Glomerular Filtration Rate 46 mL/min (>60); Est Glom Filt Rate - Afr Amer 56 mL/min (>60); Estimated Creatinine Clearance 36.23 ml/min; Globulin 5.7 g/dL (2.2-4.2); Glucose 98 mg/dL (74-106); Lipase 667 U/L (73-393); Potassium 4.8 mmol/L (3.5-5.1); Protein, Total 7.7 g/dL (6.4-8.2); Sodium Level 135 mmol/L (136-145)
[2022-07-01 14:21] LABS: Platelet Estimate ADEQUATE (ADEQ); Red Cell Morphology NORM C+C NORMAL (NORM C&C)
[2022-07-01 14:31] VITALS: BP 113/66; PULSE 86; RESP 16; TEMP 36.8; O2SAT 95
--- NOTE | 2022-07-01 16:45 | NURSING ---
Dr. Ruggiero in to see patient after reviewing labs. Expresses concerns over worsening labs and how to treat without being able to get MRI. Requests patient be admitted to the hospital for more acute care for pancreatitis. Dr. Ruggiero called over to acute side to make aware. Report called down to ER and patient made aware. Talked to POA and made aware. Sent phone, typewriter assembler, back stimulator, glasses, PEG tube attachment, wallet, pocket knife, change, and one set of clothes with him.
--- NOTE | 2022-07-01 17:14 | PCM.PROGNOTE ---
Subjective Subjective Patient was seen by dietary and recommendations were made regarding his tube feedings. Objective Data Objective Data Vital Signs: Vital Signs Temp Pulse Resp BP Pulse Ox O2 Del Method 98.2 F 86 16 113/66 95 Room Air 07/01/22 14:31 07/01/22 14:31 07/01/22 14:31 07/01/22 14:31 07/01/22 14:31 07/01/22 14:31 Oxygen Delivery Method Room Air Weight: 146 lb 2 oz Body Mass Index (BMI) 18.3 Intake & Output: Intake and Output for Last 24 Hours 06/29/22 06/30/22 07/01/22 23:59 23:59 23:59 Intake Total 360 / 360 2340 / 2340 360 / 360 Balance 360 / 360 2340 / 2340 360 / 360 Medical Nutrition Assessment Dietitian: Malnutrition Criteria Met Start: 06/12/22 08:55 Freq: Status: Active Protocol: Document 06/16/22 15:30 AG (Rec: 06/16/22 15:30 AG [id number]) Nutrition Malnutrition Evidence of Malnutrition Exists Yes Malnutrition (severe): Chronic Evidenced By Suboptimal Energy Intake ( Severe),Weight Loss (Severe), Physical Changes (Severe) Clinical Problem Chronic Disease or Condition Related Malnutrition Etiology severe, chronic malnutrition related to inadequate energy intake d/t swallowing difficulities Signs/Symptoms as evidenced by estimated PO intake meeting <75% of estimated energy needs >3 months; unintentional wt loss of ~27#/16%; obvious, severe muscle wasting fat loss evident in orbital, clavicle, acromion, and temporal areas per physical exam; BMI 18.3 Status Active Problem Recommendation Dietitian Recommendations/Changes Via PEG- Nepro bolus feeds 237mL 5x/day with 100mL H2O flush before and after each bolus to provide 2100 calories , 95 g protein. Will continue w/ 100mL H2O flush before and after each bolus; will adjust additional flushes to 200mL H2O flush every 4 hours to provide ~3060mL total fluid per day (860 water from TF, 1000mL from TF flushes, 1200mL additional flush). Currently meets 100% of estimated energy needs; will adjust boluses if Res able to resume PO diet. Lab / Micro Data Result Diagrams: 07/01/22 13:01 07/01/22 13:01 Labs: Laboratory Results - last 24 hr 06/26/22 17:15: EBV Capsid Ag IgG Ab > 600.0 H, EBV Capsid Ag IgM Ab < 36.0, EBV Nuclear Ag IgG Ab 320.0 H, EBV Antibody Interp Comment, Hepatitis A IgM Ab Negative, Hep Bs Antigen Negative, Hep B Core IgM Ab Negative, Hepatitis C Ab (EIA) <0.1, Hep C Ab Comment Comment 06/30/22 17:54: WBC 13.2 H, RBC 2.82 L, Hgb 7.9 L, Hct 25.3 L, MCV 89.7, MCH 28.0, MCHC 31.2 L, RDW Std Deviation 56.9 H, RDW Coeff of Gustabo 17.2 H, Plt Count 430, MPV 10.5, Immature Gran % (Auto) 3.900 H, Neut % (Auto) 81.5 H, Lymph % (Auto) 4.0 L, [place] % (Auto) 8.0, Eos % (Auto) 2.2, Baso % (Auto) 0.4, Absolute Neuts (auto) 10.8 H, Absolute Lymphs (auto) 0.53 L, Nucleated RBC % 0, Differential Comment SEE COMMENT, Platelet Estimate SLT INC, RBC Morphology N CHROM, Hypochromasia 1+, Anisocytosis RARE, Macrocytosis RARE 07/01/22 13:01: WBC 15.1 H, RBC 2.70 L, Hgb 7.6 L, Hct 24.3 L, MCV 90.0, MCH 28.1, MCHC 31.3 L, RDW Std Deviation 57.4 H, RDW Coeff of Gustabo 17.3 H, Plt Count 485 H, MPV 10.2, Immature Gran % (Auto) 4.400 H, Neut % (Auto) 81.0 H, Lymph % (Auto) 4.0 L, Atlantic % (Auto) 8.2, Eos % (Auto) 2.0, Baso % (Auto) 0.4, Absolute Neuts (auto) 12.3 H, Absolute Lymphs (auto) 0.60 L, Nucleated RBC % 0, Differential Comment , Platelet Estimate ADEQUATE, RBC Morphology NORM C+C, ESR 49 H 07/01/22 13:01: Sodium 135 L, Potassium 4.8, Chloride 105, Carbon Dioxide 24.0, Anion Gap 6, BUN 56 H, Creatinine 1.55 H, Estim Creat Clear Calc 36.23, Est GFR (MDRD) Af Amer 56 L, Est GFR (MDRD) Non-Af 46 L, BUN/Creatinine Ratio 36.1 H, Glucose 98, Calcium 9.6, Total Bilirubin 0.30, AST 106 H, ALT 163 H, Alkaline Phosphatase 637 H, C-React Prot Ext Range 193.00 H, Total Protein 7.7, Albumin 2.0 L, Globulin 5.7 H, Albumin/Globulin Ratio 0.4 L, Amylase 184 H, Lipase 667 H Micro: Microbiology 06/26/22 18:43 Nasal Secretion SARS-CoV-2 Antigen (Rapid) - Final 06/22/22 14:30 Urine, Clean Catch Urine Culture - Final Mixed Gram Pos & Gram Neg Org 06/18/22 06:20 Nasal Secretion SARS-CoV-2 Antigen (Rapid) - Final 06/12/22 00:00 Nasal Secretion SARS-CoV-2 Antigen (Rapid) - Final Physical Exam Const alert General Appearance: cooperative HEENT normocephalic Eyes PERRL and EOMs intact bilaterally Neck supple, no JVD and no carotid bruits Resp normal respiratory effort, normal air movement and clear to auscultation bilaterally Cardio regular rate and regular rhythm GI normal to inspection, nondistended, normoactive bowel sounds, non-tender and non-distended GI Narrative: PEG present. Extremity normal capillary refill General Extremity: Negative for edema Skin no rashes or lesions noted General Skin Exam: no breakdown Psych affect normal Appearance: appropriate Assessment & Plan Assessment/Plan (1) Celiac disease: PLAN: Celiac disease identified by elevated tissue transglutaminase. Dietary left recommendations regarding his tube feedings to hopefully decrease his tissue transglutaminase and decrease his risk of recurrent pancreatitis, protein, nutrition, diarrhea, vitamin deficiency, anemia and osteoporosis. (2) Increased liver enzymes: PLAN: Increased liver enzymes likely secondary to choledocholithiasis. He has multiple stones in his gallbladder as per ultrasound. I wanted to get an MRCP due to the persisting elevated liver enzymes however he has a back stimulator that is not compatible with the MRI scanner. (3) Pancreatitis: PLAN: I suspect he has gallstone pancreatitis with elevated amylase and lipase. Recommendation is to send the patient to the emergency room so he can be properly volume resuscitated and properly monitored. He will likely need endoscopic procedures such as ERCP due to the fact he cannot have MRCP. Charges/Coding Visit Charges Inpatient E&M: 92734 Subs Hosp L3
--- NOTE | 2022-07-01 18:56 | DS.PCM_ITS ---
Providers Date of Admission: 06/11/22 Primary Care Physician: Dr. Anderson Crowley MD Consultations 06/26/22 07:47 Consult: Gastroenterology Routine Consulting Provider: Deana Gastroenterology Reason for Consult: Elevated liver enzymes. EMERGENT Consult: No MD Notified: Yes Date Notified: 06/26/22 Time Notified: 11:18 Method of Notification: Answering Service Reason For Visit: CVA Diagnosis Discharge Diagnosis (1) Celiac disease: Status: Acute Code(s): K90.0 - Celiac disease (2) Increased liver enzymes: Status: Acute Code(s): R74.8 - Abnormal levels of other serum enzymes (3) Pancreatitis: Status: Acute Code(s): K85.90 - Acute pancreatitis without necrosis or infection, unspecified Plan 81 year old male with below past medical history hospitalized for stroke status post TPA, complicated by urinary tract infection/bacteremia, left ureteral stone requiring left ureteral stent, nonfunctional larynx requiring PEG, admitted to , transferred to TCU with debility, here for rehabilitation, strengthening, prior to discharge home alone. * Debility - PT/OT. * Dysphagia - ST. * Pain - Tylenol 1000mg q6h prn pain (1-5), Oxycodone 5mg q4h prn pain (6-10), Arthritis pain compound 3 clicks topical bid. * Bowel - Dulcolax 10mg pr x 1 prn, MOM 30ml po x 1 prn. * Adult immunization - Administer pneumonia vaccine, covid19 vaccine, flu vaccine. * DVT prophylaxis - Hold. * COPD - Advair 232-14 1 puff inhaled q12, Albuterol 2 puffs q6h prn. * Stroke - Aspirin 324mg daily. * Hyperlipidemia - Atorvastatin 80mg qhs. * Neuropathic pain - Gabapentin 300mg tid. * GERD - Lansoprazole 30mg daily. * Orthostatic hypotension - Midodrine 5mg tid. 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 Zolpidem 5mg qhs prn. * Nutrition - Nepro 250ml 5x/day. * Tinea Corporis - Nystatin powder topical bid. * Yeast Balanitis - Nystatin cream topical bid. * Depression - Sertraline 50mg daily, stable chronic detention use, GDR not recommended. * Gas - Simethicone 80mg q6. Medications at Discharge Home Medications albuterol sulfate 90 mcg/actuation aerosol inhaler 2 puff inhalation Q6H PRN PRN Sob &/Or Wheezing 10/01/19 atorvastatin 40 mg tablet 80 mg feeding tube QHS cholesterol 12/08/21 mirtazapine 15 mg tablet 15 mg feeding tube QHS sleep/appetite 05/28/22 Arthritis Pain Compound 3 click topical BID PRN Pain 06/11/22 aspirin 81 mg chewable tablet 324 mg G-tube DAILYCM blood thinner 06/11/22 bisacodyl 10 mg rectal suppository 10 mg CA .PRN X 1 PRN Constipation #0 ea 06/11/22 fluticasone 232 mcg-salmeterol 14 mcg/actuation breath activated powdr 1 inh inhalation Q12 shortness of breath/wheezing 06/11/22 magnesium hydroxide 400 mg/5 mL oral suspension 30 ml PO .PRN X 1 PRN Constipation #0 mL 06/11/22 midodrine 5 mg tablet 5 mg G-tube TID 06/11/22 nut.tx.imp.renal fxn,lac-reduc 0.08 gram-1.8 kcal/mL oral liquid (Nepro Carb Steady) 360 ml G-tube 4X/DAY supplement 06/11/22 nystatin 100,000 unit/gram topical powder (Nyamyc) 1 applic topical BID PRN redness/moisture 06/11/22 nystatin-triamcinolone 100,000 unit/g-0.1 % topical cream 1 applic topical BID@0600,2200 topical treatment 06/11/22 oxycodone 5 mg tablet 5 mg PO Q4H PRN PRN Pain Score 1-10 #0 tabs 06/11/22 simethicone 40 mg/0.6 mL oral drops,suspension (Infants Simethicone) 80 mg G- tube Q6 digestion 06/11/22 zolpidem 5 mg tablet 5 mg PO QHS PRN PRN Insomnia #1 TAB 06/11/22 acetylcysteine 200 mg/mL (20 %) solution 6 ml PO DAILY 07/01/22 gabapentin 300 mg capsule 300 mg feeding tube TID 07/01/22 potassium chloride 20 mEq/15 mL oral liquid 20 meq PO DAILY 07/01/22 sertraline 50 mg tablet 50 mg PO DAILY 07/01/22 ursodiol 250 mg tablet 250 mg PO TIDCM 07/01/22 Hospital Course Operations None Procedures None Summary of Care Provided Minutes Spent on Discharge: 35 Hospital Course: 81 year old male with below past medical history hospitalized for stroke status post TPA, complicated by urinary tract infection/bacteremia, left ureteral stone requiring left ureteral stent, nonfunctional larynx requiring PEG, admitted to , transferred to TCU with debility, here for rehabilitation, strengthening, prior to discharge home alone. Resident has had persistently elevated liver enzymes. Appreciate Dr. Ruggiero consultation. Dr. Ruggiero diagnosed celiac sprue, but more urgently, resident has signs and symptoms consistent with gallstone pancreatitis. MRCP unable due to back stimulator, Dr. Ruggiero to consider ERCP once resident stabilized in hospital. Discharge to [facility] Emergency Department for evaluation, admission to hospital. Physical Exam Const alert General Appearance: cooperative HEENT normocephalic Eyes PERRL and EOMs intact bilaterally Neck supple, no JVD and no carotid bruits Resp normal respiratory effort, normal air movement and clear to auscultation bilaterally Cardio regular rate and regular rhythm GI normal to inspection, nondistended, normoactive bowel sounds, non-tender and non -distended GI Narrative: Gastrostomy tube present. Extremity normal capillary refill General Extremity: Negative for edema Skin no rashes or lesions noted General Skin Exam: no breakdown Psych affect normal Appearance: appropriate Medical Records Data Medical Nutrition Assessment Dietitian: Malnutrition Criteria Met Start: 06/12/22 08:55 Freq: Status: Active Protocol: Document 06/16/22 15:30 (Rec: 06/16/22 15:30 AG [id number]) Nutrition Malnutrition Evidence of Malnutrition Exists Yes Malnutrition (severe): Chronic Evidenced By Suboptimal Energy Intake ( Severe),Weight Loss (Severe), Physical Changes (Severe) Clinical Problem Chronic Disease or Condition Related Malnutrition Etiology severe, chronic malnutrition related to inadequate energy intake d/t swallowing difficulities Signs/Symptoms as evidenced by estimated PO intake meeting <75% of estimated energy needs >3 months; unintentional wt loss of ~27#/16%; obvious, severe muscle wasting fat loss evident in orbital, clavicle, acromion, and temporal areas per physical exam; BMI 18.3 Status Active Problem Recommendation Dietitian Recommendations/Changes Via PEG- Nepro bolus feeds 237mL 5x/day with 100mL H2O flush before and after each bolus to provide 2100 calories , 95 g protein. Will continue w/ 100mL H2O flush before and after each bolus; will adjust additional flushes to 200mL H2O flush every 4 hours to provide ~3060mL total fluid per day (860 water from TF, 1000mL from TF flushes, 1200mL additional flush). Currently meets 100% of estimated energy needs; will adjust boluses if Res able to resume PO diet. Weight / BMI Weight Weight: 66.281 kg Body Mass Index (BMI) 18.3 ABG / Lab / Microbiology Data Result Diagrams: 07/01/22 13:01 07/01/22 13:01 Laboratory: Laboratory Results - last 24 hr 07/01/22 13:01: WBC 15.1 H, RBC 2.70 L, Hgb 7.6 L, Hct 24.3 L, MCV 90.0, MCH 28.1, MCHC 31.3 L, RDW Std Deviation 57.4 H, RDW Coeff of Gustabo 17.3 H, Plt Count 485 H, MPV 10.2, Immature Gran % (Auto) 4.400 H, Neut % (Auto) 81.0 H, Lymph % (Auto) 4.0 L, [place]uel % (Auto) 8.2, Eos % (Auto) 2.0, Baso % (Auto) 0.4, Absolute Neuts (auto) 12.3 H, Absolute Lymphs (auto) 0.60 L, Nucleated RBC % 0, Differential Comment , Platelet Estimate ADEQUATE, RBC Morphology NORM C+C, ESR 49 H 07/01/22 13:01: Sodium 135 L, Potassium 4.8, Chloride 105, Carbon Dioxide 24.0, Anion Gap 6, BUN 56 H, Creatinine 1.55 H, Estim Creat Clear Calc 36.23, Est GFR (MDRD) Af Amer 56 L, Est GFR (MDRD) Non-Af 46 L, BUN/Creatinine Ratio 36.1 H, Glucose 98, Calcium 9.6, Total Bilirubin 0.30, AST 106 H, ALT 163 H, Alkaline Phosphatase 637 H, C-React Prot Ext Range 193.00 H, Total Protein 7.7, Albumin 2.0 L, Globulin 5.7 H, Albumin/Globulin Ratio 0.4 L, Amylase 184 H, Lipase 667 H Microbiology: Microbiology 06/26/22 18:43 Nasal Secretion SARS-CoV-2 Antigen (Rapid) - Final 06/22/22 14:30 Urine, Clean Catch Urine Culture - Final Mixed Gram Pos & Gram Neg Org 06/18/22 06:20 Nasal Secretion SARS-CoV-2 Antigen (Rapid) - Final 06/12/22 00:00 Nasal Secretion SARS-CoV-2 Antigen (Rapid) - Final D/C Instructions Discharge Diet: - (Tube feed.) Discharge Activity: Return to Normal Activity, May Shower and Use Walker Weight Bearing Status: Weight bearing as tolerated Call your doctor if you observe: Fever of 101 or Higher, Inability to urinate, Inability to have a bowel movement, Shortness of breath, Dizziness, Fainting spells, Swelling in the ankles, Chest pain and Uncontrolled pain Additional Instructions: Discharge to [facility] Emergency Department for evaluation, admission to hospital. Please Follow Up With: Ivan Wise MD Meaningful Use Info Meaningful Use Diagnoses (Choose all that apply): None applicable Discharge Plan Admission Admit Date/Time: 06/11/22 18:20 Primary Reason for Your Visit: Debility. Attending Provider: Mike Anthony Chi Primary Care Provider: Anderson Crowley Instructions Additional Instructions / Restrictions: Discharge to [facility] Emergency Department for evaluation, admission to hospital. Discharge Orders/Prescriptions Prescriptions: No Action albuterol sulfate 1 INHALER inhaler 2 puff inhalation Q6H PRN PRN (Reason: Sob &/Or Wheezing) atorvastatin 40 mg Tablet 80 mg feeding tube QHS mirtazapine 15 MG tablet 15 mg feeding tube QHS magnesium hydroxide 400 mg/5 mL Suspension 30 ml PO .PRN X 1 PRN (Reason: Constipation) Qty: 0 0RF bisacodyl 10 mg Suppository 10 mg CA .PRN X 1 PRN (Reason: Constipation) Qty: 0 0RF zolpidem 5 mg Tablet 5 mg PO QHS PRN PRN (Reason: Insomnia) Qty: 1 0RF oxycodone 5 mg Tablet 5 mg PO Q4H PRN PRN (Reason: Pain Score 1-10) Qty: 0 0RF Arthritis Pain Compound 3 click topical BID PRN (Reason: Pain) midodrine 5 mg tablet 5 mg G-tube TID nystatin-triamcinolone 100,000-0.1 unit/g-% cream 1 applic topical BID@0600,2200 Protocol: *Topical Application Instructions APPLICATION INSTRUCTIONS: penile foreskin redness simethicone [Infants Simethicone] 40 mg/0.6 mL drops,suspension 80 mg G-tube Q6 aspirin 81 mg tablet,chewable 324 mg G-tube DAILYCM nystatin [Nyamyc] 100,000 unit/gram powder 1 applic topical BID PRN (Reason: redness/moisture) Protocol: *Topical Application Instructions APPLICATION INSTRUCTIONS: groin Nepro Carb Steady 0.08 gram-1.8 kcal/mL liquid 360 ml G-tube 4X/DAY fluticasone propion-salmeterol 232-14 mcg/actuation aerosol powdr breath activated 1 inh inhalation Q12 acetylcysteine [Mucomyst-20] 200 mg/mL (20 %) Solution 6 ml PO DAILY potassium chloride 20 mEq/15 mL Liquid 20 meq PO DAILY ursodiol 250 mg Tablet 250 mg PO TIDCM gabapentin 300 mg capsule 300 mg feeding tube TID sertraline 50 mg Tablet 50 mg PO DAILY Referrals / Follow Up: Anderson Crowley MD [Primary Care Provider] - Disposition Disposition (needs filled in before D/C Order can be placed): [facility]
== END 2022-07-01 16:45 | disposition short-term general hospital (02) | DRG 56 ==
PROVIDERS: Internal Medicine Gastroenterology; Admitting Provider Family Medicine Geriatric Medicine; PCP Family Medicine; Visit Provider Family Medicine Geriatric Medicine
DX: I69.354 Hemiplegia and hemiparesis following cerebral infarction affecting left non-dominant side (principal); K85.10 Biliary acute pancreatitis without necrosis or infection; N13.6 Pyonephrosis; K22.2 Esophageal obstruction; B35.4 Tinea corporis; I73.9 Peripheral vascular disease, unspecified; J44.9 Chronic obstructive pulmonary disease, unspecified; N18.30 Chronic kidney disease, stage 3 unspecified; Z93.1 Gastrostomy status; G62.9 Polyneuropathy, unspecified; E78.5 Hyperlipidemia, unspecified; I95.1 Orthostatic hypotension; M19.90 Unspecified osteoarthritis, unspecified site; K21.9 Gastro-esophageal reflux disease without esophagitis; I12.9 Hypertensive chronic kidney disease with stage 1 through stage 4 chronic kidney disease, or unspecified chronic kidney disease; D50.9 Iron deficiency anemia, unspecified; B37.42 Candidal balanitis; B95.2 Enterococcus as the cause of diseases classified elsewhere; Z85.21 Personal history of malignant neoplasm of larynx; Z87.891 Personal history of nicotine dependence; N40.0 Benign prostatic hyperplasia without lower urinary tract symptoms; F32.A Depression, unspecified; R13.10 Dysphagia, unspecified; Z79.899 Other long term (current) drug therapy; Z79.82 Long term (current) use of aspirin; K90.0 Celiac disease; Z23 Encounter for immunization
CPT/HCPCS: 36415; 74019; 76705; 80048; 80053; 80074; 80076; 80329; 81001; 82085; 82150; 82550; 82728; 82784; 82962; 83516; 83690; 85025; 85610; 85652; 86140; 86225; 86235; 86255; 86645; 86664; 86665; 87086; 87088; 87426; 87811; 92526; 92610; 97110; 97116; 97162; 97166; 97530; 97535; 97802; 97803; G0008; J7030; 90686; A4216; G0480

== ENCOUNTER 2022-06-18 22:10 | Emergency (ER) | payer MEDICARE, OTHER, SELFPAY ==
[2022-06-18 22:10] VITALS: BP 180/90; PULSE 98; RESP 16; TEMP 37; O2SAT 93; BMI 18.7
--- NOTE | 2022-06-18 22:39 | EDS_ITS ---
HPI History of Present Illness Chief Complaint: GI Bleed Informant: patient Narrative Narrative: Patient presents with some blood from his PEG tube. This was dark red with some black. This has not happened before. He states since about a week and a half since it was placed. He is not having abdominal pain nausea or vomiting. All his feeds go through the tube. He is not eating orally yet. He is on aspirin. He was on Plavix prior but that has been stopped. It sounds like its been stopped for a week or so but I am not certain of this. He denies Eliquis, Xarelto, Coumadin or other anticoagulation. He has not seen black or bloody stools. Patient also sneezed very hard and had a left-sided nosebleed. Cotton was placed and this currently has stopped. No other bleeding complaints. Nothing else makes these issues better or worse. [facility] Medical History Arthritis Back pain Benign neoplasm of colon Bifascicular bundle branch block BPH (benign prostatic hypertrophy) Cancer Cardiology follow-up encounter Chest pain Chronic cough Former smoker Former smoker Gastric reflux Grade I diastolic dysfunction History of echocardiogram History of hypertension History of pain when walking History of steroid therapy History of stress test Hoarseness Hypertension Injury of head and neck Loss of consciousness Lumbar spinal stenosis Osteoarthritis of left knee Pharyngeal cancer Rhinitis Shortness of breath on exertion Silent aspiration TIA (transient ischemic attack) Wears dentures Wears glasses Home Medications albuterol sulfate 90 mcg/actuation aerosol inhaler 2 puff inhalation Q6H PRN PRN Sob &/Or Wheezing 10/01/19 [History Last Taken Unknown] acetaminophen 500 mg tablet 1,000 mg PO Q6H PRN Pain Score 1-5/10 10/31/19 [Rx Last Taken Unknown] atorvastatin 40 mg tablet 80 mg feeding tube QHS cholesterol 12/08/21 [History Last Taken Unknown] gabapentin 300 mg/6 mL (6 mL) oral solution 300 mg feeding tube TID Check with primary doctor 05/28/22 [History Last Taken Unknown] guar gum 1 tbsp feeding tube BID bowel mobility 05/28/22 [History Last Taken Unknown] mirtazapine 15 mg tablet 15 mg feeding tube QHS sleep/appetite 05/28/22 [History Last Taken Unknown] sertraline 25 mg tablet 25 mg feeding tube DAILY depression 05/28/22 [History Last Taken Unknown] Arthritis Pain Compound 0 click topical BID pain 06/11/22 [History Last Taken Unknown] aspirin 81 mg chewable tablet 324 mg G-tube DAILYCM blood thinner 06/11/22 [History Last Taken Unknown] bisacodyl 10 mg rectal suppository 10 mg AK .PRN X 1 PRN Constipation #0 ea 06/11/22 [Rx Last Taken Unknown] fluticasone 232 mcg-salmeterol 14 mcg/actuation breath activated powdr 1 inh inhalation Q12 shortness of breath/wheezing 06/11/22 [History Last Taken Unknown] guar gum 1 tbsp feeding tube BID ##0 06/11/22 [Rx Last Taken Unknown] lansoprazole 15 mg capsule,delayed release 30 mg PO DAILY acid 06/11/22 [History Last Taken Unknown] magnesium hydroxide 400 mg/5 mL oral suspension 30 ml PO .PRN X 1 PRN Constipation #0 mL 06/11/22 [Rx Last Taken Unknown] menthol 0.44 %-zinc oxide 20.6 % topical ointment (Calmoseptine) 1 applic topical BID skin protectant 06/11/22 [History Last Taken Unknown] midodrine 5 mg tablet 5 mg G-tube TID BP 06/11/22 [History Last Taken Unknown] nut.tx.imp.renal fxn,lac-reduc 0.08 gram-1.8 kcal/mL oral liquid (Nepro Carb Steady) 250 ml G-tube 5X/DAY supplement 06/11/22 [History Last Taken Unknown] nystatin 100,000 unit/gram topical powder (Nyamyc) 1 applic topical BID r edness/moisture 06/11/22 [History Last Taken Unknown] nystatin-triamcinolone 100,000 unit/g-0.1 % topical cream 1 applic topical BID@0600,2200 topical treatment 06/11/22 [History Last Taken Unknown] oxycodone 5 mg tablet 5 mg PO Q4H PRN PRN Pain Score 1-10 #0 tabs 06/11/22 [Rx Last Taken Unknown] simethicone 40 mg/0.6 mL oral drops,suspension (Infants Simethicone) 80 mg G- tube Q6 digestion 06/11/22 [History Last Taken Unknown] zolpidem 5 mg tablet 5 mg PO QHS PRN PRN Insomnia #1 TAB 06/11/22 [Rx Last Taken Unknown] Allergy/AdvReac Type Severity Reaction Status Date / Time mold Allergy NEEDS Verified 05/08/22 17:10 FOLLOW-UP house dust AdvReac SNEEZING Verified 05/08/22 17:10 morphine AdvReac Vomiting Verified 05/08/22 17:10 poison kayleen extract AdvReac Rash Verified 05/08/22 17:10 Family History Mother CAD (coronary artery disease) Brother COPD (chronic obstructive pulmonary disease) Surgical History H/O hernia repair History of cardiac catheterization History of esophageal dilatation History of laminectomy History of tonsillectomy Hx of colonoscopy Internal carotid artery stent present S/P total knee arthroplasty Spinal cord stimulator status Status post insertion of percutaneous endoscopic gastrostomy (PEG) tube Status post total left knee replacement Ureteral stent present Social History household members: none housing: house number of children: 0 current occupational status: retired Smoking Status: Former smoker Smokeless tobacco user: chewing tobacco and other how long ago did patient quit smokin alcohol intake: former substance use type: does not use ROS ROS ED Constitutional Constitutional ED: Denies chills or fever(s) Eyes Eyes: Denies change in vision ENT ENT ED: Reports other Details: Left-sided epistaxis after sneezing. ; Denies rhinorrhea or sore throat Cardiovascular Cardiovascular: Denies chest pain or palpitations Respiratory/Chest Respiratory/Chest: Denies cough or dyspnea Gastrointestinal Gastrointestinal: Reports other Details: Dark red blood from PEG tube as above. ; Denies abdominal pain, constipation, diarrhea, melena, nausea or vomiting Musculoskeletal Musculoskeletal: Denies myalgias Integumentary Denies rash Neurologic Neurologic: Denies headache(s) Endocrine Endocrinology: Denies polydipsia or polyuria Hematologic/Lymphatic Hematologic/Lymphatic: Reports easy bleeding, easy bruising and other Details: Patient does have some easier bleeding due to being on aspirin. Allergic/Immunologic Allergic/Immunologic ED: Denies urticaria EXAM Physical Exam Const Vital Signs: 06/18/22 22:10 Temperature 98.6 F Temperature Source Oral Pulse Rate 98 Respiratory Rate 16 Blood Pressure 180/90 H Blood Pressure Mean 120 Pulse Ox 93 Oxygen Delivery Method Room Air Positive well nourished and well developed General Appearance ED: well developed and NAD HEENT Reports moist mucous membranes HEENT Narrative: Patient does have cotton with some dried blood in the left naris. No active bleeding. No blood going down posterior pharynx. Eyes General Eye ED: Negative for pale conjunctiva Chest Wall inspection of chest normal and palpation of chest normal Resp normal respiratory effort and clear to auscultation bilaterally Cardio regular rate and regular rhythm GI normal to inspection, nondistended, normoactive bowel sounds, non-tender and non-distended GI Narrative: PEG tube is in place. Extension is hooked up to this. We were able to draw out some darker red material that is consistent with some blood. There is also some dark brown. No coffee grounds really. Back/Spine no CVA tenderness Extremity normal to inspection Neuro oriented x3 Sensorium / Orientation: alert Psych mental status grossly normal Skin Skin Narrative: No notable petechiae. MDM MDM MDM Narrative Medical decision making narrative: Procedure: Epistaxis management: With the patient clear clots. Afrin was sprayed up in the left nostril. Nurse had already put a little bit in both. Anterior Kiesselbach's plexus was bit friable on the left but no focal area of bleeding. In fact that the bleeding is stopped at this time. We were able to get him to blow and clear some more clots. I then used some spray thrombin in the left nare. He has been observed at this time. He initially was doing well. About 30 or so minutes later he started to have so me more oozing from the left side. This looks like it is coming from Kiesselbach's. Its only on the left side. Patient states he always has left side nosebleeds. He has never had bleeding on the right currently or in the past. At this point I think packing is more appropriate. A 5.5 cm anterior Merocel was used. 4% lidocaine and Afrin as well as thrombin was again used prior to this. He tolerated this well. Balloon was inflated. It was rechecked after period of warming. Patient's been observed. He has no further bleeding out the front or the back. He is doing much better. I explained that this should be left in place for about 2-3 days. The packing is anterior only. We will attempt to avoid antibiotics with the short. Packing in anterior only. Patient has had frequent left-sided nosebleeds. He has had cauterization before. It is very possible that the dark blood that we saw from the PEG tube was from swallowed nasal blood. He states the nosebleed started before they found blood in the tube. Patient just had an endoscopy on 02 June that showed no significant abnormal mucosa. As long as the nose is controlled, I do not think he needs to be admitted for the blood in the PEG tube aspirate without signs of active bleeding. He has no pain or discomfort. Lab Data Labs: Laboratory Results - last 24 hr 06/18/22 06/18/22 06/18/22 22:50 22:50 22:50 WBC 14.5 H RBC 3.86 L Hgb 11.0 L Hct 35.9 L MCV 93.0 MCH 28.5 MCHC 30.6 L RDW Std Deviation 57.8 H RDW Coeff of Gustabo 17.0 H Plt Count 257 MPV 12.5 H Immature Gran % (Auto) 0.800 Neut % (Auto) 84.2 H Lymph % (Auto) 3.5 L Converse % (Auto) 7.2 Eos % (Auto) 3.9 Baso % (Auto) 0.4 Absolute Neuts (auto) 12.2 H Absolute Lymphs (auto) 0.50 L Nucleated RBC % 0 Differential Comment SCANNED PT 13.9 INR 1.1 APTT 35.7 Sodium 140 Potassium 3.9 Chloride 105 Carbon Dioxide 28.0 Anion Gap 7 BUN 50 H Creatinine 1.49 H Estim Creat Clear Calc 36.68 Est GFR (MDRD) Af Amer 58 L Est GFR (MDRD) Non-Af 48 L BUN/Creatinine Ratio 33.6 H Glucose 114 H Calcium 9.8 Total Bilirubin 0.30 AST 164 H ALT 193 H Alkaline Phosphatase 166 H Total Protein 8.4 H Albumin 3.3 Globulin 5.1 H Albumin/Globulin Ratio 0.6 L Procedures Other Procedures Procedure(s): Epistaxis management. See MDM Discharge Plan Triage Chief Complaint: GI Bleed ED Provider: Fly Alvarado Dx/Rx/DC Orders Clinical Impression: Left-sided epistaxis Instructions: ED Epistaxis (Adult) Prescriptions: No Action albuterol sulfate 1 INHALER inhaler 2 puff inhalation Q6H PRN PRN (Reason: Sob &/Or Wheezing) acetaminophen 500 MG tablet 1,000 mg PO Q6H PRN (Reason: Pain Score 1-5/10) 0RF atorvastatin 40 mg Tablet 80 mg feeding tube QHS guar gum Packet 1 tbsp feeding tube BID Rx Instructions: mix into at least 4 oz water or juice before administering sertraline 25 mg Tablet 25 mg feeding tube DAILY gabapentin 300 mg/6 mL (6 mL) Solution 300 mg feeding tube TID mirtazapine 15 MG tablet 15 mg feeding tube QHS magnesium hydroxide 400 mg/5 mL Suspension 30 ml PO .PRN X 1 PRN (Reason: Constipation) Qty: 0 0RF bisacodyl 10 mg Suppository 10 mg AK .PRN X 1 PRN (Reason: Constipation) Qty: 0 0RF Guar Gum 1 tbsp feeding tube BID Qty: 0 0RF zolpidem 5 mg Tablet 5 mg PO QHS PRN PRN (Reason: Insomnia) Qty: 1 0RF oxycodone 5 mg Tablet 5 mg PO Q4H PRN PRN (Reason: Pain Score 1-10) Qty: 0 0RF Arthritis Pain Compound 0 click topical BID midodrine 5 mg tablet 5 mg G-tube TID nystatin-triamcinolone 100,000-0.1 unit/g-% cream 1 applic topical BID@0600,2200 Protocol: *Topical Application Instructions APPLICATION INSTRUCTIONS: penile foreskin redness lansoprazole 15 mg capsule,delayed release(DR/EC) 30 mg PO DAILY simethicone [Infants Simethicone] 40 mg/0.6 mL drops,suspension 80 mg G-tube Q6 aspirin 81 mg tablet,chewable 324 mg G-tube DAILYCM nystatin [Nyamyc] 100,000 unit/gram powder 1 applic topical BID Protocol: *Topical Application Instructions APPLICATION INSTRUCTIONS: groin Nepro Carb Steady 0.08 gram-1.8 kcal/mL liquid 250 ml G-tube 5X/DAY menthol-zinc oxide [Calmoseptine] 0.44-20.6 % ointment 1 applic topical BID Protocol: *Topical Application Instructions APPLICATION INSTRUCTIONS: apply to mona-rectal area fluticasone propion-salmeterol 232-14 mcg/actuation aerosol powdr breath activated 1 inh inhalation Q12 Primary Care Provider: Anderson Crowley Referrals: Anderson Crowley MD [Primary Care Provider] - Disposition Disposition: [facility] Facility
[2022-06-18] MEDS: Oxymetazoline 0.05% 1 SPRAY SPRAY.BTL 2 SPRAY NASAL (22:41)
[2022-06-18 23:04] LABS: Absolute Neutrophil Count 12.2 X10^3/uL (2.0-7.7); Basophil# 0.06 X10^3/uL; Basophil% 0.4 % (0-1); Eosinophil# 0.56 X10^3/uL; Eosinophils% 3.9 % (0-5); Hematocrit 35.9 % (40-54); Lymphocyte % 3.5 % (19-41); Mean Corp Hgb Conc 30.6 g/dL (32-36); Mean Corpuscular Hgb 28.5 pg (27.0-32.0); Mean Platelet Vol. 12.5 fl (6.2-12.0); Monocyte# 1.04 X10^3/uL; Monocyte% 7.2 % (0-10); NRBC Flagged by Analyzer 0 % (0-5); Neutrophil % 84.2 % (47-70); POSITIVE DIFFERENTIAL YES; Platelet Count 257 K/mm3 (150-450); RBC Distribution Width SD 57.8 fl (35.1-43.9); Red Blood Count 3.86 M/mm3 (4.6-6.2); White Blood Count 14.5 K/mm3 (4.4-11.0)
[2022-06-18] MEDS: Thrombin 5,000 IU Kit (PSA) 5,000 IU Vial 5000 IU TOPICAL (23:10)
[2022-06-18 23:13] LABS: Differential Indicated SCAN CRITERIA MET
[2022-06-18 23:17] LABS: International Normalized Ratio 1.1; Prothrombin Time (Protime)PT. 13.9 SECONDS (11.7-14.9)
[2022-06-18 23:18] LABS: Partial Thromboplast Time 35.7 Seconds (24.1-36.2)
[2022-06-18 23:20] LABS: ALB/GLOB Ratio 0.6 RATIO (0.9-2.4); AST(SGOT) 164 U/L (15-37); Alanine Aminotransfer ALT/SGPT 193 U/L (16-61); Albumin, Serum 3.3 g/dL (3.2-5.0); Alkaline Phosphatase 166 U/L (45-117); Anion Gap 7 (5-15); BUN 50 mg/dL (7-18); BUN/Creat Ratio 33.6 RATIO (10-20); Calcium,Total 9.8 mg/dL (8.5-10.1); Chloride 105 mmol/L (98-107); Creatinine, Serum 1.49 mg/dL (0.70-1.30); EST Glomerular Filtration Rate 48 mL/min (>60); Est Glom Filt Rate - Afr Amer 58 mL/min (>60); Estimated Creatinine Clearance 36.68 ml/min; Globulin 5.1 g/dL (2.2-4.2); Glucose 114 mg/dL (74-106); Potassium 3.9 mmol/L (3.5-5.1); Protein, Total 8.4 g/dL (6.4-8.2); Sodium Level 140 mmol/L (136-145)
[2022-06-18 23:30] LABS: Differential Comment SCANNED
[2022-06-19 01:49] VITALS: BP 134/96; PULSE 80; RESP 18; O2SAT 100
== END 2022-06-19 01:51 | disposition skilled nursing facility (03) ==
PROVIDERS: Emergency Provider Emergency Medicine; PCP Family Medicine; Visit Provider Emergency Medicine
DX: K92.2 Gastrointestinal hemorrhage, unspecified (principal); Z93.1 Gastrostomy status; Z87.891 Personal history of nicotine dependence; I10 Essential (primary) hypertension; R04.0 Epistaxis; M19.90 Unspecified osteoarthritis, unspecified site; N40.0 Benign prostatic hyperplasia without lower urinary tract symptoms; K21.9 Gastro-esophageal reflux disease without esophagitis; Z79.899 Other long term (current) drug therapy; Z79.82 Long term (current) use of aspirin; F17.220 Nicotine dependence, chewing tobacco, uncomplicated
CPT/HCPCS: 30901; 80053; 85025; 85610; 85730; 99283; A4216

== ENCOUNTER 2022-07-01 16:44 | Inpatient (IN) | payer MEDICARE, OTHER, SELFPAY ==
[2022-07-01 16:47] VITALS: BP 127/81; PULSE 91; RESP 15; TEMP 36.1; O2SAT 95; BMI 19.5
--- NOTE | 2022-07-01 16:55 | EDS_ITS ---
HPI History of Present Illness Chief Complaint: Abn Labs Informant: patient and PCP Onset/Context/Timing Onset: Today Context: Gradual Onset Timing: Continuous Worsened by: Nothing Relieved by: Nothing Narrative Narrative: Patient presents with increasing LFTs and pancreatitis that was noticed on the TCU today. Patient was seen by Dr. Ruggiero up there who ordered amylase and lipase which were both elevated. Patient was also noted to have cholelithiasis. Dr. Ruggiero called in to let us know that the patient will be transferred to the emergency department for admission and he will consult for ERCP in a couple days when the pancreatitis improves. Patient denies any pain. Patient denies any nausea or vomiting. Patient denies any fevers or chills. [facility] Medical History (Updated 07/01/22 @ 23:[address] Yousif Cheng, ) Alcohol abuse Alcohol use Arthritis Asymmetric septal hypertrophy Back pain Benign neoplasm of colon Bifascicular bundle branch block BPH (benign prostatic hypertrophy) Cancer Cardiology follow-up encounter Chest pain Chronic cough Chronic pain COPD (chronic obstructive pulmonary disease) Depression Difficulty chewing Dyspnea Former smoker Former smoker Gastric reflux GERD (gastroesophageal reflux disease) Grade I diastolic dysfunction Hiatal hernia History of echocardiogram History of hypertension History of malignant neoplasm of larynx History of pain when walking History of steroid therapy History of stress test Hoarseness Hypertension Hypertension Injury of head and neck Loss of consciousness Lumbar spinal stenosis Microscopic hematuria Nephrolithiasis Neuropathic pain Osteoarthritis of left knee Pharyngeal cancer Restenosis of arterial stent Rhinitis Shortness of breath on exertion Silent aspiration TIA (transient ischemic attack) Wears dentures Wears glasses Home Medications albuterol sulfate 90 mcg/actuation aerosol inhaler 2 puff inhalation Q6H PRN PRN Sob &/Or Wheezing 10/01/19 [History Last Taken Unknown] atorvastatin 40 mg tablet 80 mg feeding tube QHS cholesterol 12/08/21 [History Last Taken 06/30/22 20:14] mirtazapine 15 mg tablet 15 mg feeding tube QHS sleep/appetite 05/28/22 [History Last Taken 06/30/22 20:14] Arthritis Pain Compound 3 click topical BID PRN Pain 06/11/22 [History Last Taken Unknown] aspirin 81 mg chewable tablet 324 mg G-tube DAILYCM blood thinner 06/11/22 [History Last Taken 07/01/22 08:17] bisacodyl 10 mg rectal suppository 10 mg NC .PRN X 1 PRN Constipation #0 ea 06/11/22 [Rx Last Taken Unknown] fluticasone 232 mcg-salmeterol 14 mcg/actuation breath activated powdr 1 inh inhalation Q12 shortness of breath/wheezing 06/11/22 [History Last Taken 07/01/22 06:16] magnesium hydroxide 400 mg/5 mL oral suspension 30 ml PO .PRN X 1 PRN Constipation #0 mL 06/11/22 [Rx Last Taken Unknown] midodrine 5 mg tablet 5 mg G-tube TID 06/11/22 [History Last Taken 07/01/22 06:15] nut.tx.imp.renal fxn,lac-reduc 0.08 gram-1.8 kcal/mL oral liquid (Nepro Carb Steady) 360 ml G-tube 4X/DAY supplement 06/11/22 [History Last Taken 07/01/22 06:16] nystatin 100,000 unit/gram topical powder (Nyamyc) 1 applic topical BID PRN redness/moisture 06/11/22 [History Last Taken Unknown] nystatin-triamcinolone 100,000 unit/g-0.1 % topical cream 1 applic topical BID@0600,2200 topical treatment 06/11/22 [History Last Taken Unknown] oxycodone 5 mg tablet 5 mg PO Q4H PRN PRN Pain Score 1-10 #0 tabs 06/11/22 [Rx Last Taken Unknown] simethicone 40 mg/0.6 mL oral drops,suspension (Infants Simethicone) 80 mg G- tube Q6 digestion 06/11/22 [History Last Taken 07/01/22 06:16] zolpidem 5 mg tablet 5 mg PO QHS PRN PRN Insomnia #1 TAB 06/11/22 [Rx Last Taken Unknown] acetylcysteine 200 mg/mL (20 %) solution 6 ml PO DAILY 07/01/22 [History Last Taken 07/01/22 06:15] gabapentin 300 mg capsule 300 mg feeding tube TID 07/01/22 [History Last Taken 07/01/22 06:15] potassium chloride 20 mEq/15 mL oral liquid 20 meq PO DAILY 07/01/22 [History Last Taken 07/01/22 08:17] sertraline 50 mg tablet 50 mg PO DAILY 07/01/22 [History Last Taken 07/01/22 06:15] ursodiol 250 mg tablet 250 mg PO TIDCM 07/01/22 [History Last Taken 06/30/22 18:28] Allergy/AdvReac Type Severity Reaction Status Date / Time mold Allergy NEEDS Verified 05/08/22 17:10 FOLLOW-UP house dust AdvReac SNEEZING Verified 05/08/22 17:10 morphine AdvReac Vomiting Verified 05/08/22 17:10 poison kayleen extract AdvReac Rash Verified 05/08/22 17:10 Family History Mother CAD (coronary artery disease) Brother COPD (chronic obstructive pulmonary disease) Surgical History H/O hernia repair History of cardiac catheterization History of esophageal dilatation History of heart artery stent History of laminectomy History of tonsillectomy Hx of colonoscopy Internal carotid artery stent present S/P total knee arthroplasty Spinal cord stimulator status Status post insertion of percutaneous endoscopic gastrostomy (PEG) tube Status post total left knee replacement Ureteral stent present Social History household members: none housing: house number of children: 0 current occupational status: retired Smoking Status: Former smoker Smokeless tobacco user: chewing tobacco and other how long ago did patient quit smokin alcohol intake: former substance use type: does not use ROS ROS ED Constitutional Constitutional ED: Denies chills or fever(s) Eyes Eyes: Denies blurry vision or change in vision ENT ENT ED: Denies rhinorrhea or sore throat Cardiovascular Cardiovascular: Denies chest pain or palpitations Respiratory/Chest Respiratory/Chest: Denies cough or dyspnea Gastrointestinal Gastrointestinal: Denies nausea or vomiting Genitourinary Genitourinary ED: Reports urinary frequency; Denies dysuria or hematuria Musculoskeletal Musculoskeletal: Reports neck pain; Denies back pain Integumentary Denies abscess or rash Neurologic Neurologic: Denies headache(s) or weakness Allergic/Immunologic Allergic/Immunologic ED: Denies mouth swelling or urticaria EXAM Physical Exam Const Vital Signs: 07/01/22 16:47 07/01/22 17:20 07/01/22 18:44 Temperature 97 F L 97.1 F L Temperature Source Temporal Temporal Pulse Rate 91 92 Respiratory Rate 15 15 Respiratory Effort Normal Non-Labored Respiratory Pattern Normal Blood Pressure 127/81 H 115/70 Blood Pressure Mean 96 85 Pulse Ox 95 97 Oxygen Delivery Method Room Air Room Air 07/01/22 18:44 Temperature Temperature Source Pulse Rate 88 Respiratory Rate 16 Respiratory Effort Respiratory Pattern Blood Pressure 118/77 Blood Pressure Mean 90 Pulse Ox 97 Oxygen Delivery Method Room Air Positive well nourished and well developed General Appearance ED: well developed and NAD HEENT Reports moist mucous membranes Neck supple and no JVD Resp normal respiratory effort and clear to auscultation bilaterally Cardio regular rate and regular rhythm GI normal to inspection, nondistended, normoactive bowel sounds GI Narrative: There is a PEG tube in place. Palpation: soft Extremity General Extremety ED: Negative for edema or tenderness General Extremity: Negative for edema Neuro oriented x3, CN's II-XII intact bilaterally and no sensory deficits noted Sensorium / Orientation: alert Motor Exam: strength 5/5 throughout Psych mental status grossly normal MDM MDM MDM Narrative Medical decision making narrative: IV line was established. Patient already had lab work done. Patient denies any pain or nausea at the present time. Case was discussed with the hospitalist. He requested that PT with INR and PTT be obtained. These were ordered. PTT was slightly elevated at 15.1. INR is normal at 1.2. PTT was 38.6. He will admit the patient to his service. Patient understood and was agreeable with the plan. All questions were answered. Lab Data Labs: Laboratory Results - last 24 hr 07/01/22 07/01/22 13:01 17:26 PT 15.1 H INR 1.2 APTT 38.6 H Magnesium 2.6 Discharge Plan Dx/Rx/DC Orders Clinical Impression: Pancreatitis, Cholelithiasis, Increased liver enzymes Disposition Disposition: Acute Care Hospital [facility] Discharge Date/Time: 07/01/22 19:46
[2022-07-01 17:41] LABS: International Normalized Ratio 1.2; Prothrombin Time (Protime)PT. 15.1 SECONDS (11.7-14.9)
[2022-07-01 17:42] LABS: Partial Thromboplast Time 38.6 Seconds (24.1-36.2)
[2022-07-01 18:44] VITALS: BP 115/70; BP 118/77; PULSE 88; PULSE 92; RESP 15; RESP 16; TEMP 36.2; O2SAT 97
--- NOTE | 2022-07-01 20:01 | HP.PCM.HOS_ITS ---
HPI - General General Date of Admission: 07/01/22 Date of Service: 07/01/22 Chief Complaint: Sent from TCU for abnormal labs HPI Narrative MADDI JAMESON, is a 81 M with history of stroke in May 2022 and then transferred to [facility], rehab and then TCU was transferred to ED for abnormal liver chemistry. In TCU, GI was consulted for epigastric discomfort/pressure. Patient states he did not have abdominal pain. Currently denies severe abdom inal pressure. Recent GB ultrasound shows GB calculi with biliary sludge/GB wall mass or tumefactive sludge. CBD reported 4 mm. GB wall measures 2 mm. No PC fluid. Liver normal in echogenicity with hepatopetal Doppler blood flow. Normal head body size and echogenicity of pancreas. The patient was found to have elevated transaminases and alkaline phosphatase. Actually it has gotten better as compared to 06/29/2022. Patient has CKD stage III with BUN/creatinine 56/1.55. Patient also has supraglottic laryngeal cancer and has dysphagia and esophageal stricture and has PEG tube. Patient is further admitted with GI consult for possible ERCP and cholecystectomy [facility] Medical History Arthritis Asymmetric septal hypertrophy Back pain Benign neoplasm of colon Bifascicular bundle branch block BPH (benign prostatic hypertrophy) Cancer Cardiology follow-up encounter Chest pain Chronic cough COPD (chronic obstructive pulmonary disease) Depression Former smoker Former smoker Gastric reflux GERD (gastroesophageal reflux disease) Grade I diastolic dysfunction History of echocardiogram History of hypertension History of malignant neoplasm of larynx History of pain when walking History of steroid therapy History of stress test Hoarseness Hypertension Hypertension Injury of head and neck Loss of consciousness Lumbar spinal stenosis Microscopic hematuria Nephrolithiasis Neuropathic pain Osteoarthritis of left knee Pharyngeal cancer Restenosis of arterial stent Rhinitis Shortness of breath on exertion Silent aspiration TIA (transient ischemic attack) Wears dentures Wears glasses Home Medications albuterol sulfate 90 mcg/actuation aerosol inhaler 2 puff inhalation Q6H PRN PRN Sob &/Or Wheezing 10/01/19 [History Last Taken Unknown] atorvastatin 40 mg tablet 80 mg feeding tube QHS cholesterol 12/08/21 [History Last Taken 06/30/22 20:14] mirtazapine 15 mg tablet 15 mg feeding tube QHS sleep/appetite 05/28/22 [History Last Taken 06/30/22 20:14] Arthritis Pain Compound 3 click topical BID PRN Pain 06/11/22 [History Last Taken Unknown] aspirin 81 mg chewable tablet 324 mg G-tube DAILYCM blood thinner 06/11/22 [History Last Taken 07/01/22 08:17] bisacodyl 10 mg rectal suppository 10 mg MT .PRN X 1 PRN Constipation #0 ea [Rx Last Taken Unknown] fluticasone 232 mcg-salmeterol 14 mcg/actuation breath activated powdr 1 inh inhalation Q12 shortness of breath/wheezing 06/11/22 [History Last Taken 07/01/22 06:16] magnesium hydroxide 400 mg/5 mL oral suspension 30 ml PO .PRN X 1 PRN Constipation #0 mL 06/11/22 [Rx Last Taken Unknown] midodrine 5 mg tablet 5 mg G-tube TID 06/11/22 [History Last Taken 07/01/22 06:15] nut.tx.imp.renal fxn,lac-reduc 0.08 gram-1.8 kcal/mL oral liquid (Nepro Carb Steady) 360 ml G-tube 4X/DAY supplement 06/11/22 [History Last Taken 07/01/22 06:16] nystatin 100,000 unit/gram topical powder (Nyamyc) 1 applic topical BID PRN redness/moisture 06/11/22 [History Last Taken Unknown] nystatin-triamcinolone 100,000 unit/g-0.1 % topical cream 1 applic topical BID@0600,2200 topical treatment 06/11/22 [History Last Taken Unknown] oxycodone 5 mg tablet 5 mg PO Q4H PRN PRN Pain Score 1-10 #0 tabs 06/11/22 [Rx Last Taken Unknown] simethicone 40 mg/0.6 mL oral drops,suspension (Infants Simethicone) 80 mg G- tube Q6 digestion 06/11/22 [History Last Taken 07/01/22 06:16] zolpidem 5 mg tablet 5 mg PO QHS PRN PRN Insomnia #1 TAB 06/11/22 [Rx Last Taken Unknown] acetylcysteine 200 mg/mL (20 %) solution 6 ml PO DAILY 07/01/22 [History Last Taken 07/01/22 06:15] gabapentin 300 mg capsule 300 mg feeding tube TID 07/01/22 [History Last Taken 07/01/22 06:15] potassium chloride 20 mEq/15 mL oral liquid 20 meq PO DAILY 07/01/22 [History Last Taken 07/01/22 08:17] sertraline 50 mg tablet 50 mg PO DAILY 07/01/22 [History Last Taken 07/01/22 06:15] ursodiol 250 mg tablet 250 mg PO TIDCM 07/01/22 [History Last Taken 06/30/22 18:28] Allergy/AdvReac Type Severity Reaction Status Date / Time mold Allergy NEEDS Verified 05/08/22 17:10 FOLLOW-UP house dust AdvReac SNEEZING Verified 05/08/22 17:10 morphine AdvReac Vomiting Verified 05/08/22 17:10 poison kayleen extract AdvReac Rash Verified 05/08/22 17:10 Family History Mother CAD (coronary artery disease) Brother COPD (chronic obstructive pulmonary disease) Surgical History H/O hernia repair History of cardiac catheterization History of esophageal dilatation History of laminectomy History of tonsillectomy Hx of colonoscopy Internal carotid artery stent present S/P total knee arthroplasty Spinal cord stimulator status Status post insertion of percutaneous endoscopic gastrostomy (PEG) tube Status post total left knee replacement Ureteral stent present Social History household members: none housing: house number of children: 0 current occupational status: retired Smoking Status: Former smoker Smokeless tobacco user: chewing tobacco and other how long ago did patient quit smokin alcohol intake: former substance use type: does not use ROS ROS Narrative Constitutional: Reports fatigue and weakness. No fever. HEENT: Reports systems reviewed and no addt'l complaints, except as documented Respiratory/Chest: Denies chest pain, shortness of breath at rest or with exertion Gastrointestinal: Elevated liver chemistry. Denies coffee ground emesis, hematemesis or vomiting Genitourinary: BPH with hesitancy and respiratory distress training. Denies burning urination Neurologic: Denies seizure-like activity Psychiatric: Mild forgetfulness. skin: No ulcer. No rash Endocrinology: Reports systems reviewed and no addt'l complaints, except as documented Hematologic/Lymphatic: Reports systems reviewed and no addt'l complaints, except as documented Rest 14 ROS are negative except as mentioned in HPI Vital Signs Vital Signs Vital Signs: 07/01/22 16:47 07/01/22 17:20 07/01/22 18:44 Temperature 97 F L 97.1 F L Temperature Source Temporal Temporal Pulse Rate 91 92 Respiratory Rate 15 15 Respiratory Effort Normal Non-Labored Respiratory Pattern Normal Blood Pressure 127/81 H 115/70 Blood Pressure Mean 96 85 Pulse Ox 95 97 Oxygen Delivery Method Room Air Room Air 07/01/22 18:44 Temperature Temperature Source Pulse Rate 88 Respiratory Rate 16 Respiratory Effort Respiratory Pattern Blood Pressure 118/77 Blood Pressure Mean 90 Pulse Ox 97 Oxygen Delivery Method Room Air Weight Weight: 148 lb 5.938 oz Body Mass Index (BMI) 19.5 Physical Exam Narrative Physical exam General: Alert, Oriented x3, Cooperative, BMI 19.6 kg/m? HEENT: Atraumatic, PERRLA, EOMI, Normocephalic Oral: Oral mucosa dry. No Gingival or Mucosal Lesions/ Ulcerations Neck: Supple, No JVD, Negative Carotid Bruits Lungs: Air entry diminished in bilateral lung bases. No crepitation/rhonchi Cardiovascular: Regular rate, Regular Rhythm, Normal S1, Normal S2, No murmurs Abdomen: PEG tube present. Bowel Sounds Present, Soft, Non Tender, Non- Distended : No renal angle tenderness. No suprapubic tenderness. Extremities: No edema, Capillary Refill Less than 3 Seconds Skin: No rashes, No breakdown Musculoskeletal: Moderate muscle atrophy of extremities. No Tenderness to Palpation of Joints or Extremities Neurological: Cranial nerves II-XII grossly intact, DTR 2+/4, muscle strength 4+/5 at major joints Psych/Mental Status: Flat affect. Results Lab / Micro Data Labs: Laboratory Results - last 24 hr 07/01/22 17:26: PT 15.1 H, INR 1.2, APTT 38.6 H Assessment & Plan Assessment/Plan (1) Cholelithiasis: PLAN: Plan This 81-year-old question gentleman admitted from TCU through ER for abnormal liver chemistry 1. Cholelithiasis with recent mild abdominal pressure with elevated liver chemistry and lipase: Patient is being admitted on [facility] floor. Patient does not have abdominal pain. Amylase slightly elevated. Lipase 667, less than 2 times upper limit. ALT AST and alkaline phosphatase trending down. CRP and ESR elevated. Patient has leukocytosis 15.1 thousand mainly PMN's neutrophil 81%. Denies fever or chills. No RUQ tenderness. GI is consulted. Plan for possible ERCP and lap pari. Monitor liver chemistry and lites. Tomorrow a.m. Patient on PEG tube feeding. INR normal. 2. Severe anemia of chronic disease: Patient H&H 7.6/24%. Yesterday was 7.9%. Patient hemoglobin has been low since May 2021 but it got better to 11 g probably might have required PRBC transfusion. Stool for occult blood ordered. Patient had EGD on June 02, 2022 for dysphagia and reported benign- appearing esophageal stenosis dilated. Intact gastrostomy with patent G-tube. Normal first duodenum. PEG tube was removed percutaneously as it was broken. Endoscopically, new PEG tube was placed. 3. CVA in May 2022: At that time CTA of head and neck showed left A1 segment occlusion, moderate stenosis of right ICA stent and possible focal dissection distal to the stent, moderate stenosis of left ICA and occlusion/near occlusion of proximal right vertebral artery. tPA was administered and patient was transferred to ICU. After that patient was in acute rehab in [facility], [facility] and then now admitted. PT OT and speech evaluation ordered. 4. BPH with nocturia with history of urinary retention: Continue Flomax. Nursing BladderScan every 4 hourly for retention. 5. Moderate protein calorie malnutrition: Patient has moderate muscle atrophy and loss of subcutaneous fat. On PEG tube feeding. 6. 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 Multiple other comorbidities include COPD, GERD, hypertension and multiple other comorbidities 7. VT prophylaxis: Pharmacologic prophylaxis compression as patient has severe anemia, elevated liver chemistry. Bilateral SCDs Living will/advanced directive/end of life care: Patient does have living will or advanced directive. His next to kin is patient's friend. After discussion of benefits/risks procedures involved with full code, DNR CC arrest and DNR CC, the patient wants a DNR CC arrest with no intubation. Patient is wearing wristband which states DNR CC arrest with no intubation. Patient doesn't want artificial life support including intubation, tube feed, ventilator and/chest compression, central venous catheter, vasopressor and DC shock if needed Total time spent in [id number] encounter in discussion of advanced directive 16 minutes. Laboratory Results 07/01/22 17:26: PT 15.1 H, INR 1.2, APTT 38.6 H Lipase 667 Charges/Coding Visit Charges Inpatient E&M: 64501 Init Hosp L3 Procedures Hospitalists Procedures: 51268 Advncd Care Plan 30 Min
[2022-07-01 20:47] VITALS: BP 150/85; PULSE 95; RESP 14; TEMP 37.2; O2SAT 98; BMI 19.0
[2022-07-01 21:13] LABS: Magnesium 2.6 mg/dL (1.6-2.6)
[2022-07-01] MEDS: 0.9% Normal Saline 1,000 ML 75 ML IV (21:28)
[2022-07-01] MEDS: Midodrine HCl 5 MG Tablet GT (22:49)
[2022-07-01] MEDS: Gabapentin 300 MG Capsule GT (22:49)
[2022-07-01] MEDS: Atorvastatin Calcium 80 MG Tablet GT (22:49)
[2022-07-01] MEDS: Mirtazapine 15 MG Tablet GT (22:49)
[2022-07-01] MEDS: Nepro Liquid 120 ML LIQUID 360 ML PO (23:03)
[2022-07-02] VITALS (9 sets, daily range): BP systolic 103–145; BP diastolic 65–85; PULSE 83–100; RESP 15–20; TEMP 36.6–37.2; O2SAT 93–98
--- NOTE | 2022-07-02 05:55 | EKG12_ITS ---
Test Reason : AM EKG Blood Pressure : / mmHG Vent. Rate : 082 BPM Atrial Rate : 082 BPM P-R Int : 162 ms QRS Dur : 136 ms QT Int : 418 ms P-R-T Axes : 059 -82 035 degrees QTc Int : 488 ms Normal sinus rhythm Left axis deviation Right bundle branch block Abnormal ECG When compared with ECG of 02-JUN-2022 05:02, No significant change was found Confirmed by KWAKU ALLEN, BAILEE ([id number]), slot editor MABEL MALAGON ([id number]) on 07/06/2022 2:23:35 PM Referred By: JEANETTE Confirmed By:BAILEE AMES MD
[2022-07-02 06:08] LABS: Absolute Lymphocyte Count 0.64 X10^3/uL (0.83-4.51); Absolute Neutrophil Count 14.4 X10^3/uL (2.0-7.7); Basophil# 0.06 X10^3/uL; Basophil% 0.3 % (0-1); Eosinophils% 1.2 % (0-5); Hematocrit 23.8 % (40-54); Hemoglobin 7.7 g/dL (13.0-16.5); Lymphocyte # 0.64 X10^3/ul (0.83-4.51); Lymphocyte % 3.7 % (19-41); Mean Corp Hgb Conc 32.4 g/dL (32-36); Mean Corpuscular Hgb 28.9 pg (27.0-32.0); Mean Corpuscular Volume 89.5 fL (80-94); Mean Platelet Vol. 10.3 fl (6.2-12.0); Monocyte# 1.19 X10^3/uL; Monocyte% 6.9 % (0-10); NRBC Flagged by Analyzer 0 % (0-5); Neutrophil # 14.39 X10^3/uL (2.7-7.7); Neutrophil % 83.9 % (47-70); Platelet Count 479 K/mm3 (150-450); RBC Distribution Width CV 17.2 % (11.6-14.6); RBC Distribution Width SD 56.4 fl (35.1-43.9); Red Blood Count 2.66 M/mm3 (4.6-6.2); White Blood Count 17.2 K/mm3 (4.4-11.0)
[2022-07-02 06:14] LABS: International Normalized Ratio 1.3; Prothrombin Time (Protime)PT. 15.9 SECONDS (11.7-14.9)
[2022-07-02 06:15] LABS: Partial Thromboplast Time 42.2 Seconds (24.1-36.2)
[2022-07-02 06:32] LABS: ALB/GLOB Ratio 0.3 RATIO (0.9-2.4); AST(SGOT) 87 U/L (15-37); Alanine Aminotransfer ALT/SGPT 134 U/L (16-61); Albumin, Serum 1.7 g/dL (3.2-5.0); Alkaline Phosphatase 575 U/L (45-117); Anion Gap 8 (5-15); BUN 58 mg/dL (7-18); BUN/Creat Ratio 39.7 RATIO (10-20); Calcium,Total 9.2 mg/dL (8.5-10.1); Chloride 107 mmol/L (98-107); Creatinine, Serum 1.46 mg/dL (0.70-1.30); EST Glomerular Filtration Rate 49 mL/min (>60); Est Glom Filt Rate - Afr Amer 60 mL/min (>60); Estimated Creatinine Clearance 38.13 ml/min; Globulin 5.3 g/dL (2.2-4.2); Glucose 98 mg/dL (74-106); Lipase 729 U/L (73-393); Phosphorus 5.2 mg/dL (2.5-4.9); Sodium Level 137 mmol/L (136-145)
[2022-07-02] MEDS: Albuterol 2.5 MG/3 ML VIAL.NEB. INHALATION ×3 (07:03→18:50)
[2022-07-02] MEDS: Budesonide Respules 0.5 MG/2 ML AMPUL.NEB. INHALATION ×2 (07:04→18:50)
--- NOTE | 2022-07-02 09:00 | RAD_ITS ---
STUDY: X-RAY CHEST REASON FOR EXAM: Male, 81 years old. sepsis TECHNIQUE: Single AP portable view of the chest. COMPARISON: 06/02/2022 FINDINGS: Dorsal column spinal stimulator in the lower thoracic spine. The lungs are clear and expanded. There is no demonstrated pleural abnormality. Normal size heart. Normal mediastinum and tanner. Normal visualized pulmonary arteries. There is atherosclerotic tortuosity of the aortic arch and descending thoracic aorta. Normal visualized thoracic spine. Normal visualized ribs, clavicles, and shoulders. There is no demonstrated abnormality of the visualized soft tissue structures of the upper abdomen. RAD/Chest 1 View (Portable) IMPRESSION: No active disease. Electronically Signed: David Pittman MD at 9:26 EDT ,
[2022-07-02] MEDS: 0.9% Saline Lock 10 ML Syringe IV (09:21)
[2022-07-02 10:08] LABS: Bacteria 0 SEEN /hpf (None Seen); Mucous, Urine 0 SEEN /hpf (<or=2+); Squamous Epithelial Cells - UA 0 SEEN /hpf (0-5)
[2022-07-02 10:16] LABS: Color, Urine Yellow (Yellow); Glucose, Dipstick Normal (Normal); Ketone-Dipstick Negative (Negative); Leukocyte Esterase-Dipstick 100 /ul (Negative); Nitrite-Dipstick Negative (Negative); Occult Blood-Urine 150 /ul (Negative); Protein-Dipstick Negative (Negative); Specific Gravity, Urine 1.015 (1.002-1.030); Urine Bilirubin Dipstick Negative (Negative); Urine Clarity Clear (Clear); Urine Urobilinogen Normal (Normal)
[2022-07-02 10:25] LABS: Red Blood Cells-Urine 10-25 SEEN /hpf (0-5); White Blood Cells 10-25 SEEN /hpf (0-5)
[2022-07-02] MEDS: 0.9% Normal Saline 1,000 ML 75 ML IV (11:11)
--- NOTE | 2022-07-02 12:38 | PN.HOSP_ITS ---
Subjective Subjective DOS: 07/02/2022 CC: Abdominal discomfort Mr. Eaton reports this morning that he does continue to have some dull abdominal pain. He notes that he has been having it but did not think much of it because it was not severe. It has continued/possibly slightly worse today. Denies chest pain, no changes in his breathing or coughing. Does get tube feeds which are on hold. Denies changes in bowel or bladder. Does note feeling tired and generally unwell. Objective Data Objective Data Vital Signs: Vital Signs Temp Pulse Resp BP Pulse Ox O2 Del Method 97.8 F 91 16 109/78 93 Room Air 07/02/22 09:02 07/02/22 09:02 07/02/22 09:02 07/02/22 09:02 07/02/22 09:02 07/02/22 09:02 Oxygen Delivery Method Room Air Weight: 65.7 kg Body Mass Index (BMI) 19.0 Intake & Output: Intake and Output for Last 24 Hours 06/30/22 07/01/22 07/02/22 23:59 23:59 23:59 Intake Total 200 / 400 1440 / 1440 Balance 200 / 400 1440 / 1440 Lab / Micro Data Result Diagrams: 07/02/22 05:45 07/02/22 05:45 Labs: Laboratory Results - last 24 hr 07/01/22 13:01: Magnesium 2.6 07/01/22 17:26: PT 15.1 H, INR 1.2, APTT 38.6 H 07/02/22 05:45: WBC 17.2 H, RBC 2.66 L, Hgb 7.7 L, Hct 23.8 L, MCV 89.5, MCH 28.9, MCHC 32.4, RDW Std Deviation 56.4 H, RDW Coeff of [place] 17.2 H, Plt Count 479 H, MPV 10.3, Immature Gran % (Auto) 4.000 H, Neut % (Auto) 83.9 H, Lymph % (Auto) 3.7 L, [place] % (Auto) 6.9, Eos % (Auto) 1.2, Baso % (Auto) 0.3, Absolute Neuts (auto) 14.4 H, Absolute Lymphs (auto) 0.64 L, Nucleated RBC % 0 07/02/22 05:45: Sodium 137, Potassium 5.0, Chloride 107, Carbon Dioxide 22.0, Anion Gap 8, BUN 58 H, Creatinine 1.46 H, Estim Creat Clear Calc 38.13, Est GFR (MDRD) Af Amer 60, Est GFR (MDRD) Non-Af 49 L, BUN/Creatinine Ratio 39.7 H, Glucose 98, Calcium 9.2, Phosphorus 5.2 H, Total Bilirubin 0.20, AST 87 H, ALT 134 H, Alkaline Phosphatase 575 H, Total Protein 7.0, Albumin 1.7 L, Globulin 5.3 H, Albumin/Globulin Ratio 0.3 L, Lipase 729 H 07/02/22 05:45: PT 15.9 H, INR 1.3, APTT 42.2 H 07/02/22 09:32: Urine Color Yellow, Urine Clarity Clear, Urine pH 5.0, Ur Specific [place] 1.015, Urine Protein Negative, Urine Glucose (UA) Normal, Urine Ketones Negative, Urine Occult Blood 150 H, Urine Nitrite Negative, Urine Bilirubin Negative, Urine Urobilinogen Normal, Ur Leukocyte Esterase 100 H, Urine RBC 10-25 SEEN, Urine WBC 10-25 SEEN, Ur Squamous Epith Cells 0 SEEN, Urine Bacteria 0 SEEN, Urine Mucus 0 SEEN Radiography Diagnostic Testing: Radiology Impression Chest X-Ray 07/02/22 09:00 IMPRESSION: No active disease. Electronically Signed: David Pittman MD at 9:26 EDT , Physical Exam Const alert Constitutional Narrative: Oriented, thin HEENT normocephalic and head/scalp atraumatic Eyes Eyes Narrative: EOM grossly intact, anicteric Neck supple Resp normal respiratory effort Resp Narrative: Somewhat managed at the bases Cardio regular rate and regular rhythm GI soft to palpation GI Narrative: Mildly tender to palpation, particularly on the left side of his abdomen. No rebound, guarding, rigidity. Bowel sounds heard Extremity Extremity Narrative: No edema appreciated Neuro moves all extremities Neuro Narrative: No overt focal deficits appreciated Psych Psych Narrative: Cooperative Assessment & Plan Assessment/Plan (1) Cholelithiasis: PLAN: Plan Was recently admitted 06/11/2022 after stroke status post tPA complicated by urinary infection and bacteremia as well as left ureteral stone requiring left ureteral stent and nonfunctional larynx requiring PEG. He was transferred to TCU with debility and was there for rehab prior to discharge home alone but was found to have abnormal labs while in TCU on 07/01/2022 and was transferred for admission. GI was consulted because there was possible abdominal pain and abnormal labs. Recent gallbladder ultrasound showed calculi and sludge. #Cholelithiasis with possible abdominal pressure Elevated liver chemistry and lipase Did additionally have leukocytosis as well as elevated CRP and ESR He was admitted to [facility] and GI consulted for possible ERCP and lap pari Does have increasing leukocytosis and given labs and clinical presentation he was started on Zosyn, is on normal saline at 75 an hour #Anemia of chronic disease Hemoglobin has been low since May 2021 Hemoglobin 7.7 07/02/2022 #History of CVA in May 2022 CTA of head and neck at that time showed left A1 segment occlusion and moderate stenosis of right ICA stent as well as possible focal dissection distal to the stent as well as moderate stenosis of left ICA and occlusion/near occlusion of proximal right vertebral artery He was given tPA and admitted to the ICU PT/OT/speech eval ordered Is on aspirin and statin #BPH with nocturia and history of urinary retention Flomax Bladder scan if needed #CKD stage IIIb Appears to be at baseline #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
--- NOTE | 2022-07-02 13:25 | CASEMGMT ---
Social Work SW met with pt and introduced self and role of SW. Pt admitted from [facility] TCU. A list of SNF providers including quality and resource use data and consistent with the patient?s preferred geographic region, medical needs, and insurance network were provided from the [employer]. Pt states he would like to return to TCU at discharge. SW spoke with Dory in TCU who confirms pt can return when medically ready. Plan: TCU, when medically ready RUBIO Rodríguez
--- NOTE | 2022-07-02 15:30 | CHAPLAIN ---
Type of Pastoral Visit ___ Initial Visit _x__ Follow-up Visit ___ On-call Visit ___ General Patient Visit ___ Spiritual Assessment ___ Family Conference ___ Bereavement ___ Rapid Response ___ Code Blue ___ Other (describe below) Pastoral Care Referral From _x__ Patient ___ Family ___ Nurse ___ Physician ___ Figure Skater ___ Methods Specialist ___ Other (describe below) Sacrament/Intervention _x__ Active listening ___ Anointing ___ Latter-Day ___ Bereavement ___ Communion ___ Bee exploration ___ ___ Life review _x__ Prayer ___ Reconciliation ___ Sacrament of Sick ___ Supportive presence ___ Wedding ___ Other (describe below) Pastoral Comments patient has been seen in various units in the hospital and he enjoys the company; offered support and time to listen; pt is waiting on visit from the DR to know what is next; pt does not have concerns; prayer is welcomed
--- NOTE | 2022-07-02 18:25 | PN_ITS ---
Subjective Subjective Patient seen and examined in the chair. He has a little bit of abdominal discomfort in the periumbilical area but it is not as severe as yesterday. He denied any fevers or chills. He has not had his tube feedings today in anticipation for possible ERCP today. Objective Data Objective Data Vital Signs: Vital Signs Temp Pulse Resp BP Pulse Ox O2 Del Method 98.0 F 88 16 113/69 95 Room Air 07/02/22 15:36 07/02/22 15:36 07/02/22 15:36 07/02/22 15:36 07/02/22 15:36 07/02/22 15:36 Oxygen Delivery Method Room Air Weight: 144 lb 13.499 oz Body Mass Index (BMI) 19.0 Intake & Output: Intake and Output for Last 24 Hours 06/30/22 07/01/22 07/02/22 23:59 23:59 23:59 Intake Total 200 / 400 1490 / 1490 Balance 200 / 400 1490 / 1490 Lab / Micro Data Result Diagrams: 07/02/22 05:45 07/02/22 05:45 Labs: Laboratory Results - last 24 hr 07/01/22 13:01: Magnesium 2.6 07/02/22 05:45: WBC 17.2 H, RBC 2.66 L, Hgb 7.7 L, Hct 23.8 L, MCV 89.5, MCH 28.9, MCHC 32.4, RDW Std Deviation 56.4 H, RDW Coeff of [place] 17.2 H, Plt Count 479 H, MPV 10.3, Immature Gran % (Auto) 4.000 H, Neut % (Auto) 83.9 H, Lymph % (Auto) 3.7 L, [place] % (Auto) 6.9, Eos % (Auto) 1.2, Baso % (Auto) 0.3, Absolute Neuts (auto) 14.4 H, Absolute Lymphs (auto) 0.64 L, Nucleated RBC % 0 07/02/22 05:45: Sodium 137, Potassium 5.0, Chloride 107, Carbon Dioxide 22.0, Anion Gap 8, BUN 58 H, Creatinine 1.46 H, Estim Creat Clear Calc 38.13, Est GFR (MDRD) Af Amer 60, Est GFR (MDRD) Non-Af 49 L, BUN/Creatinine Ratio 39.7 H, Glucose 98, Calcium 9.2, Phosphorus 5.2 H, Total Bilirubin 0.20, AST 87 H, ALT 134 H, Alkaline Phosphatase 575 H, Total Protein 7.0, Albumin 1.7 L, Globulin 5.3 H, Albumin/Globulin Ratio 0.3 L, Lipase 729 H 07/02/22 05:45: PT 15.9 H, INR 1.3, APTT 42.2 H 07/02/22 09:32: Urine Color Yellow, Urine Clarity Clear, Urine pH 5.0, Ur Specific [place] 1.015, Urine Protein Negative, Urine Glucose (UA) Normal, Urine Ketones Negative, Urine Occult Blood 150 H, Urine Nitrite Negative, Urine Bilirubin Negative, Urine Urobilinogen Normal, Ur Leukocyte Esterase 100 H, Urine RBC 10-25 SEEN, Urine WBC 10-25 SEEN, Ur Squamous Epith Cells 0 SEEN, Urine Bacteria 0 SEEN, Urine Mucus 0 SEEN Radiography Diagnostic Testing: Radiology Impression Chest X-Ray 07/02/22 09:00 IMPRESSION: No active disease. Electronically Signed: David Pittman MD at 9:26 EDT , Physical Exam Const alert General Appearance: cooperative HEENT normocephalic Eyes PERRL and EOMs intact bilaterally Neck supple, no JVD and no carotid bruits Resp normal respiratory effort, normal air movement and clear to auscultation bilaterally Cardio regular rate and regular rhythm GI normal to inspection, nondistended, normoactive bowel sounds, non-tender and non-distended GI Narrative: Gastrostomy tube present. Extremity normal capillary refill General Extremity: Negative for edema Skin no rashes or lesions noted General Skin Exam: no breakdown Psych affect normal Appearance: appropriate Assessment & Plan Assessment/Plan (1) Pancreatitis: PLAN: I am concerned that he is having gallstone induced pancreatitis. He is still on IV fluids. His tube feedings have been stopped but I will restart him until midnight. He is not have any signs of edema, shortness of breath, skin lesions or any signs of ARDS at this time. Plan is for ERCP tomorrow. 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 I suspect that he does have choledocholithiasis due to the fact that he has multiple stones in his gallbladder. (3) Cholelithiasis: PLAN: His white blood cell count is increasing. I had drawn urinary analysis, 2 peripheral cultures and a chest x-ray. Although patient negative thus far. I suspect that he has infection at the level of the hepatobiliary tree or this is a leukemoid reaction secondary to pancreatitis. Charges/Coding Visit Charges Inpatient E&M: 68455 Subs Hosp L3
[2022-07-02] MEDS: NEPRO TUBE FEED 1,000 ML LIQUID 360 ML GT ×2 (18:46→22:27)
[2022-07-02] MEDS: Gabapentin 300 MG Capsule GT (22:27)
[2022-07-02] MEDS: Midodrine HCl 5 MG Tablet GT (22:27)
[2022-07-02] MEDS: Atorvastatin Calcium 80 MG Tablet GT (22:27)
[2022-07-02] MEDS: Mirtazapine 15 MG Tablet GT (22:27)
[2022-07-03] VITALS (12 sets, daily range): BP systolic 123–148; BP diastolic 73–88; PULSE 80–106; RESP 15–18; TEMP 36.6–37.2; O2SAT 18–99; BMI 19.3
[2022-07-03 04:27] LABS: Absolute Lymphocyte Count 0.61 X10^3/uL (0.83-4.51); Absolute Neutrophil Count 10.4 X10^3/uL (2.0-7.7); Basophil# 0.06 X10^3/uL; Basophil% 0.5 % (0-1); Eosinophil# 0.34 X10^3/uL; Eosinophils% 2.6 % (0-5); Hematocrit 23.1 % (40-54); Hemoglobin 7.4 g/dL (13.0-16.5); Lymphocyte # 0.61 X10^3/ul (0.83-4.51); Lymphocyte % 4.7 % (19-41); Mean Corpuscular Hgb 29.1 pg (27.0-32.0); Mean Corpuscular Volume 90.9 fL (80-94); Mean Platelet Vol. 10.3 fl (6.2-12.0); Monocyte% 8.4 % (0-10); NRBC Flagged by Analyzer 0 % (0-5); Neutrophil # 10.35 X10^3/uL (2.7-7.7); Neutrophil % 78.9 % (47-70); Platelet Count 500 K/mm3 (150-450); RBC Distribution Width CV 17.2 % (11.6-14.6); RBC Distribution Width SD 57.7 fl (35.1-43.9); Red Blood Count 2.54 M/mm3 (4.6-6.2); White Blood Count 13.1 K/mm3 (4.4-11.0)
[2022-07-03 04:56] LABS: ALB/GLOB Ratio 0.3 RATIO (0.9-2.4); AST(SGOT) 81 U/L (15-37); Alanine Aminotransfer ALT/SGPT 116 U/L (16-61); Albumin, Serum 1.7 g/dL (3.2-5.0); Alkaline Phosphatase 529 U/L (45-117); Anion Gap 6 (5-15); BUN 50 mg/dL (7-18); BUN/Creat Ratio 32.1 RATIO (10-20); Calcium,Total 8.6 mg/dL (8.5-10.1); Chloride 111 mmol/L (98-107); Creatinine, Serum 1.56 mg/dL (0.70-1.30); EST Glomerular Filtration Rate 46 mL/min (>60); Est Glom Filt Rate - Afr Amer 55 mL/min (>60); Estimated Creatinine Clearance 35.68 ml/min; Globulin 5.1 g/dL (2.2-4.2); Glucose 96 mg/dL (74-106); Magnesium 2.4 mg/dL (1.6-2.6); Phosphorus 4.6 mg/dL (2.5-4.9); Potassium 4.8 mmol/L (3.5-5.1); Protein, Total 6.8 g/dL (6.4-8.2); Sodium Level 139 mmol/L (136-145)
--- NOTE | 2022-07-03 07:10 | PCM.PN.HOSP ---
Subjective Subjective DOS: 07/03/2022 CC: Abdominal pain Reports feeling roughly the same today, endorses he told GI yesterday that he did not have much abdominal pain but wanted me to know that he is having it presently. Denies any changes in breathing, no shortness of breath. Currently getting up to walk to use the restroom. Denies other complaints at this time Objective Data Objective Data Vital Signs: Vital Signs Temp Pulse Resp BP Pulse Ox O2 Del Method 99.0 F 95 18 138/83 H 96 Room Air 07/03/22 03:45 07/03/22 03:45 07/03/22 03:45 07/03/22 03:45 07/03/22 03:45 07/03/22 03:45 Oxygen Delivery Method Room Air Weight: 66.1 kg Body Mass Index (BMI) 19.0 Intake & Output: Intake and Output for Last 24 Hours 07/01/22 07/02/22 07/03/22 23:59 23:59 23:59 Intake Total 200 / 400 2150 / 2710 1610 / 1610 Balance 200 / 400 2150 / 2710 1610 / 1610 Lab / Micro Data Result Diagrams: 07/03/22 03:57 07/03/22 03:57 Labs: Laboratory Results - last 24 hr 07/02/22 09:32: Urine Color Yellow, Urine Clarity Clear, Urine pH 5.0, Ur Specific [place] 1.015, Urine Protein Negative, Urine Glucose (UA) Normal, Urine Ketones Negative, Urine Occult Blood 150 H, Urine Nitrite Negative, Urine Bilirubin Negative, Urine Urobilinogen Normal, Ur Leukocyte Esterase 100 H, Urine RBC 10-25 SEEN, Urine WBC 10-25 SEEN, Ur Squamous Epith Cells 0 SEEN, Urine Bacteria 0 SEEN, Urine Mucus 0 SEEN 07/03/22 03:57: WBC 13.1 H, RBC 2.54 L, Hgb 7.4 L, Hct 23.1 L, MCV 90.9, MCH 29.1, MCHC 32.0, RDW Std Deviation 57.7 H, RDW Coeff of [place] 17.2 H, Plt Count 500 H, MPV 10.3, Immature Gran % (Auto) 4.900 H, Neut % (Auto) 78.9 H, Lymph % (Auto) 4.7 L, [place] % (Auto) 8.4, Eos % (Auto) 2.6, Baso % (Auto) 0.5, Absolute Neuts (auto) 10.4 H, Absolute Lymphs (auto) 0.61 L, Nucleated RBC % 0 07/03/22 03:57: Sodium 139, Potassium 4.8, Chloride 111 H, Carbon Dioxide 22.0, Anion Gap 6, BUN 50 H, Creatinine 1.56 H, Estim Creat Clear Calc 35.68, Est GFR (MDRD) Af Amer 55 L, Est GFR (MDRD) Non-Af 46 L, BUN/Creatinine Ratio 32.1 H, Glucose 96, Calcium 8.6, Phosphorus 4.6, Magnesium 2.4, Total Bilirubin 0.20, AST 81 H, ALT 116 H, Alkaline Phosphatase 529 H, Total Protein 6.8, Albumin 1.7 L, Globulin 5.1 H, Albumin/Globulin Ratio 0.3 L Radiography Diagnostic Testing: Radiology Impression Chest X-Ray 07/02/22 09:00 IMPRESSION: No active disease. Electronically Signed: David Pittman MD at 9:26 EDT , Physical Exam Const alert Constitutional Narrative: Oriented, thin HEENT normocephalic and head/scalp atraumatic Eyes Eyes Narrative: EOM grossly intact, anicteric Neck supple Resp normal respiratory effort Resp Narrative: Somewhat managed at the bases Cardio regular rate and regular rhythm GI soft to palpation GI Narrative: Mildly tender to palpation, particularly on the left side of his abdomen. No rebound, guarding, rigidity. Bowel sounds heard Extremity Extremity Narrative: No edema appreciated Neuro moves all extremities Neuro Narrative: No overt focal deficits appreciated Psych Psych Narrative: Cooperative Assessment & Plan Assessment/Plan (1) Cholelithiasis: PLAN: Plan Was recently admitted 06/11/2022 after stroke status post tPA complicated by urinary infection and bacteremia as well as left ureteral stone requiring left ureteral stent and nonfunctional larynx requiring PEG. He was transferred to TCU with debility and was there for rehab prior to discharge home alone but was found to have abnormal labs while in TCU on 07/01/2022 and was transferred for admission. GI was consulted because there was possible abdominal pain and abnormal labs. Recent gallbladder ultrasound showed calculi and sludge. #Pancreatitis secondary to cholelithiasis Elevated liver chemistry and lipase Did additionally have leukocytosis as well as elevated CRP and ESR He was admitted to [facility] and GI consulted for possible ERCP and lap pari Does have increasing leukocytosis and given labs and clinical presentation he was started on Zosyn, is on normal saline at 75 an hour 07/03/2022?was resumed on tube feeds until midnight with plans for ERCP today Trending LFTs #Leukocytosis Was 17.2 yesterday, started on Zosyn by GI Unclear if hepatobiliary infection or leukemoid reaction Did improve today on Zosyn however, will continue at this time Blood pressure is also improved #Anemia of chronic disease Hemoglobin has been low since May 2021 Hemoglobin 7.7 07/02/2022 #History of CVA in May 2022 CTA of head and neck at that time showed left A1 segment occlusion and moderate stenosis of right ICA stent as well as possible focal dissection distal to the stent as well as moderate stenosis of left ICA and occlusion/near occlusion of proximal right vertebral artery He was given tPA and admitted to the ICU PT/OT/speech eval ordered Is on aspirin and statin #BPH with nocturia and history of urinary retention Flomax Bladder scan if needed #CKD stage IIIb Appears to be at baseline #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
--- NOTE | 2022-07-03 07:55 | NURSING ---
0749 pt to ultrasound via w/ch
--- NOTE | 2022-07-03 08:12 | NURSING ---
return to unit via w/ch
[2022-07-03] MEDS: Albuterol 2.5 MG/3 ML VIAL.NEB. INHALATION (13:52)
[2022-07-03] MEDS: Lactated Ringers 1,000 ML 15 ML IV (15:00)
--- NOTE | 2022-07-03 16:05 | RAD_ITS ---
CLINICAL HISTORY: Male, 81 years old. Abdominal pain. PROCEDURE: ERCP FLUOROSCOPY TIME (if supplied): Not provided TECHNIQUE: Fluoroscopy was provided during an ERCP. 7 intraprocedural images were presented for interpretation. The first 2 images demonstrates an endoscope with cannulization of the pancreatic duct.) The third image demonstrates cannulization of the CBD with injection of contrast. The central intrahepatic ducts and common hepatic duct and common bile duct and cystic duct are opacified and are of normal diameter and appearance. There is no visualized filling defects. Subsequent images demonstrate balloon stripping of the CBD. Please refer to the operative report for further details. RAD/ERCP Biliary/Pancreas IMPRESSION: Fluoroscopy provided during an ERCP. Electronically Signed: Adrian Arguello DO at 17:03 EDT ,
--- NOTE | 2022-07-03 16:57 | OP.ERCP_ITS ---
Patient Name: Alex Eaton Procedure Date: 07/03/2022 3:50 PM Date of : 1940 Age: 81 Procedure: ERCP Indications: Common bile duct stone(s), Jaundice, Abnormal liver function test, Elevated aspartate transaminase (AST), Elevated alanine transaminase (ALT), Elevated alkaline phosphatase, Acute pancreatitis Providers: Trevor Ruggiero DO Medicines: Monitored Anesthesia Care Patient Profile: This is a 81 year old male. Refer to note in patient chart for documentation of history and physical. Patient has symptoms of acute abdominal cramping and acute jaundice. This patient has no history of previous ERCP. Complications: No immediate complications. Procedure: Pre-Anesthesia Assessment: - Prior to the procedure, a History and Physical was performed, and patient medications and allergies were reviewed. The patient is competent. The risks and benefits of the procedure and the sedation options and risks were discussed with the patient. All questions were answered and informed consent was obtained. Patient identification and proposed procedure were verified by the physician in the pre-procedure area. Mental Status Examination: alert and oriented. Airway Examination: normal oropharyngeal airway and neck mobility. Respiratory Examination: clear to auscultation. CV Examination: normal. Prophylactic Antibiotics: The patient does not require prophylactic antibiotics. Prior Anticoagulants: The patient has taken no previous anticoagulant or antiplatelet agents. ASA Grade Assessment: II - A patient with mild systemic disease. After reviewing the risks and benefits, the patient was deemed in satisfactory condition to undergo the procedure. The anesthesia plan was to use general anesthesia. Immediately prior to administration of medications, the patient was re-assessed for adequacy to receive sedatives. The heart rate, respiratory rate, oxygen saturations, blood pressure, adequacy of pulmonary ventilation, and response to care were monitored throughout the procedure. The physical status of the patient was re-assessed after the procedure. After obtaining informed consent, the scope was passed under direct vision. Throughout the procedure, the patient's blood pressure, pulse, and oxygen saturations were monitored continuously. The Duodenoscope was introduced through the mouth, and advanced to the duodenum and used to inject contrast into the bile duct. The ERCP was accomplished without difficulty. The patient tolerated the procedure well. Scope In: 4:04:17 PM Scope Out: 4:40:43 PM Total Procedure Duration Time 0 hours 36 minutes 26 seconds Findings: The electrophonic engineer film was normal. The esophagus was successfully intubated under direct vision. The scope was advanced to a normal major papilla in the descending duodenum without detailed examination of the pharynx, larynx and associated structures, and upper GI tract. The upper GI tract was grossly normal. The bile duct was deeply cannulated with the short-nosed traction sphincterotome. Contrast was injected. I personally interpreted the bile duct images. There was brisk flow of contrast through the ducts. Image quality was excellent. Contrast extended to the biliary pancreatic junction. Opacification of the entire opacified area and main bile duct was successful. The maximum diameter of the ducts was 6 mm. The lower third of the main bile duct contained a single diffuse stenosis 6 mm in length. The main bile duct was mildly dilated and locally dilated, secondary to a stricture. The largest diameter was 6 mm. A straight Roadrunner wire was passed into the biliary tree. A 5 mm biliary sphincterotomy was made with a traction (standard) sphincterotome using ERBE electrocautery. There was no post-sphincterotomy bleeding. The biliary tree was swept with a 15 mm balloon starting at the bifurcation. Sludge was swept from the duct. All stones were removed. Dilation of the common bile duct with a 6-7-8 mm balloon (to a maximum balloon size of 8 mm) dilator was successful. One 4 Fr by 5 cm temporary stent with a single external flap and a single internal flap was placed 5 cm into the ventral pancreatic duct. Clear fluid flowed through the stent. The stent was in good position. The upper GI tract was traversed under direct vision without detailed examination. The major papilla was normal. A standard esophagogastroduodenoscopy scope was used for the examination of the upper gastrointestinal tract. The scope was passed under direct vision through the upper GI tract. One benign-appearing, intrinsic stenosis was found 20 to 22 cm from the incisors. This stenosis was severe and measured 4 mm (inner diameter) x 6 cm (in length). The stenosis was traversed after downsizing scope and dilating. A guidewire was placed under fluoroscopic guidance and the scope was withdrawn. Dilation was performed at the cricopharyngeus with a Savary dilator with no resistance at 51 Fr. A standard esophagogastroduodenoscopy scope was used for the examination of the upper gastrointestinal tract. The scope was passed under direct vision through the upper GI tract. There was evidence of an intact gastrostomy with a patent G-tube present in the gastric body. This was characterized by healthy appearing mucosa. A standard esophagogastroduodenoscopy scope was used for the examination of the upper gastrointestinal tract. The scope was passed under direct vision through the upper GI tract. One oozing cratered gastric ulcer with a visible vessel was found in the gastric body. The lesion was 6 mm in largest dimension. Coagulation for hemostasis in the gastric body using bipolar probe through the esophagogastroduodenoscope was successful. Impression: - Benign-appearing esophageal stenosis. - Dilation performed at the cricopharyngeus. - A single diffuse biliary stricture was found in the lower third of the main bile duct. The stricture was secondary to previous stone(s). - The entire main bile duct was mildly dilated, secondary to a stricture. - Choledocholithiasis was found. Complete removal was accomplished by biliary sphincterotomy and balloon extraction. - A biliary sphincterotomy was performed. - The biliary tree was swept. - Common bile duct was successfully dilated. - One temporary stent was placed into the ventral pancreatic duct. Procedure Code(s): --- Professional --- 68102, Endoscopic retrograde cholangiopancreatography (ERCP); with placement of endoscopic stent into biliary or pancreatic duct, including pre- and post-dilation and guide wire passage, when performed, including sphincterotomy, when performed, each stent 56891, 59, Endoscopic retrograde cholangiopancreatography (ERCP); with trans-endoscopic balloon dilation of biliary/pancreatic duct(s) or of ampulla (sphincteroplasty), including sphincterotomy, when performed, each duct 29286, Endoscopic retrograde cholangiopancreatography (ERCP); with removal of calculi/debris from biliary/pancreatic duct(s) 06922, 59, Esophagogastroduodenoscopy, flexible, transoral; with control of bleeding, any method 65148, Esophagogastroduodenoscopy, flexible, transoral; with insertion of guide wire followed by passage of dilator(s) through esophagus over guide wire 81684, 26, Endoscopic catheterization of the biliary ductal system, radiological supervision and interpretation 73621, 26,59,51, Intraluminal dilation of strictures and/or obstructions (eg, esophagus), radiological supervision and interpretation CPT copyright 2017 [employer] [place] [employer]. All rights reserved. The codes documented in this report are preliminary and upon tractor drill operator review may be revised to meet current compliance requirements. Trevro Ruggiero DO 07/03/2022 4:56:47 PM This report has been signed electronically. Number of Addenda: 0 Note Initiated On: 07/03/2022 3:50 PM
--- NOTE | 2022-07-03 16:57 | OP.CCLET_ITS ---
07/03/2022 Anderson Crowley Re : ERCP procedure for Alex Eaton Dear Keo This procedure was performed on Sunday, July 03, 2022. My impressions and recommendations are as follows: Impressions : - Benign-appearing esophageal stenosis. - Dilation performed at the cricopharyngeus. - A single diffuse biliary stricture was found in the lower third of the main bile duct. The stricture was secondary to previous stone(s). - The entire main bile duct was mildly dilated, secondary to a stricture. - Choledocholithiasis was found. Complete removal was accomplished by biliary sphincterotomy and balloon extraction. - A biliary sphincterotomy was performed. - The biliary tree was swept. - Common bile duct was successfully dilated. - One temporary stent was placed into the ventral pancreatic duct. Recommendations : My findings are described in the full procedure note, which is enclosed. If I can be of further assistance, please feel free to contact me at . Sincerely, Trevor Ruggiero, 07/03/2022 4:56:47 PM This report has been signed electronically.
--- NOTE | 2022-07-03 18:31 | US_ITS ---
STUDY: ABDOMINAL ULTRASOUND - RIGHT UPPER QUADRANT REASON FOR VISIT: Male, 81 years old right upper quadrant pain, nausea TECHNIQUE: Ultrasound evaluation of the right upper quadrant was performed with real-time and static rhoades-scale imaging. TECHNICAL QUALITY: Adequate. COMPARISON: 06/26/2022 FINDINGS: Liver: The liver measures 17.7 cm. There is normal echogenicity of the liver. The bile ducts are within normal limits. There is hepatic color flow. The direction of portal flow is hepatopetal. There is no demonstrated mass lesion. Gallbladder: Normal distended gallbladder. The gallbladder wall measures 3.1 mm. There is a negative sonographic Bradley''s sign. There is no pericholecystic fluid. There are multiple echogenic structures within the gallbladder, consistent with multiple gallstones. Ringdown artifact noted from the gallbladder suggesting adenomyomatosis Common Bile Duct (C.B.D.): The common bile duct measures 6.4 mm. Pancreas: Normal size of the head, body and tail of the pancreas. There is normal echogenicity of the pancreas. There is no demonstrated pancreatic mass or cyst. Right Kidney: Normal size of the right kidney. The right kidney measures 10.6 x 6.1 x 5.4 cm. Normal renal cortex. The right cortex measures 1.6 cm. Multiple simple cysts, largest measures 4.8 x 4.9 x 4.7 cm. There is no right hydronephrosis. US/Gallbladder IMPRESSION: Possible gallstones are noted with borderline gallbladder wall thickening and ring down artifact suggesting adenomyomatosis, but no sonographic evidence of acute cholecystitis. There is no biliary dilatation, pericholecystic fluid, and the prevention specialist notes a negative BRADLEY sign. HIDA scan may be of benefit for further evaluation Simple right renal cysts, no specific follow-up needed Electronically Signed: Orlando Moulton MD at 8:53 EDT ,
[2022-07-03] MEDS: Atorvastatin Calcium 80 MG Tablet GT (21:54)
[2022-07-03] MEDS: Midodrine HCl 5 MG Tablet GT (21:54)
[2022-07-03] MEDS: Mirtazapine 15 MG Tablet GT (21:54)
[2022-07-03] MEDS: Gabapentin 300 MG Capsule GT (21:54)
[2022-07-03] MEDS: Sertraline 50 MG Tablet GT (21:54)
[2022-07-03] MEDS: 0.9% Normal Saline 250 ML IV.SOLN. IV (22:08)
[2022-07-03] MEDS: Simethicone 40MG/0.6ML Bottle 80 MG GT (22:09)
[2022-07-04] VITALS (10 sets, daily range): BP systolic 125–160; BP diastolic 76–86; PULSE 71–92; RESP 16–20; TEMP 36.4–36.9; O2SAT 94–97; BMI 19.3
[2022-07-04] MEDS: Gabapentin 300 MG Capsule GT ×3 (05:27→22:49)
[2022-07-04] MEDS: Midodrine HCl 5 MG Tablet GT ×3 (05:27→22:35)
[2022-07-04] MEDS: Simethicone 40MG/0.6ML Bottle 80 MG GT ×4 (05:28→22:51)
[2022-07-04 07:15] LABS: Absolute Lymphocyte Count 0.51 X10^3/uL (0.83-4.51); Absolute Neutrophil Count 14.9 X10^3/uL (2.0-7.7); Basophil# 0.04 X10^3/uL; Basophil% 0.2 % (0-1); Hematocrit 24.1 % (40-54); Hemoglobin 7.7 g/dL (13.0-16.5); Lymphocyte # 0.51 X10^3/ul (0.83-4.51); Mean Corpuscular Hgb 28.6 pg (27.0-32.0); Mean Corpuscular Volume 89.6 fL (80-94); Mean Platelet Vol. 10.2 fl (6.2-12.0); Monocyte# 0.72 X10^3/uL; Monocyte% 4.3 % (0-10); NRBC Flagged by Analyzer 0 % (0-5); Neutrophil # 14.93 X10^3/uL (2.7-7.7); Neutrophil % 88.8 % (47-70); POSITIVE DIFFERENTIAL YES; Platelet Count 588 K/mm3 (150-450); RBC Distribution Width CV 17.2 % (11.6-14.6); RBC Distribution Width SD 56.4 fl (35.1-43.9); Red Blood Count 2.69 M/mm3 (4.6-6.2); White Blood Count 16.8 K/mm3 (4.4-11.0)
[2022-07-04 07:16] LABS: Differential Indicated SCAN CRITERIA MET
[2022-07-04] MEDS: Budesonide Respules 0.5 MG/2 ML AMPUL.NEB. INHALATION ×2 (07:30→19:29)
[2022-07-04] MEDS: Albuterol 2.5 MG/3 ML VIAL.NEB. INHALATION ×3 (07:30→19:30)
[2022-07-04 07:32] LABS: Anisocytosis 1+
[2022-07-04 07:33] LABS: Platelet Estimate MOD INC (ADEQ)
[2022-07-04 07:49] LABS: ALB/GLOB Ratio 0.3 RATIO (0.9-2.4); AST(SGOT) 68 U/L (15-37); Alanine Aminotransfer ALT/SGPT 103 U/L (16-61); Albumin, Serum 1.8 g/dL (3.2-5.0); Alkaline Phosphatase 469 U/L (45-117); Anion Gap 6 (5-15); BUN 45 mg/dL (7-18); BUN/Creat Ratio 27.4 RATIO (10-20); Calcium,Total 9.2 mg/dL (8.5-10.1); Chloride 110 mmol/L (98-107); Creatinine, Serum 1.64 mg/dL (0.70-1.30); EST Glomerular Filtration Rate 43 mL/min (>60); Est Glom Filt Rate - Afr Amer 52 mL/min (>60); Globulin 5.6 g/dL (2.2-4.2); Glucose 116 mg/dL (74-106); Potassium 5.2 mmol/L (3.5-5.1); Protein, Total 7.4 g/dL (6.4-8.2); Sodium Level 139 mmol/L (136-145)
[2022-07-04 08:57] LABS: Lipase 332 U/L (73-393)
--- NOTE | 2022-07-04 09:11 | PN.HOSP_ITS ---
Subjective Subjective DOS: 07/04/2022 CC: Follow-up abdominal pain Reports feeling somewhat better today. Underwent ERCP yesterday, see op note. Tolerated that well. Plan for lap pari tomorrow. He denies any chest pain or shortness of breath. Abdominal pain is improving. No change in his bladder, does report he often will have bowel movements when he has to pee. Denies leg swelling. Objective Data Objective Data Vital Signs: Vital Signs Temp Pulse Resp BP Pulse Ox O2 Del Method 97.5 F L 86 16 133/76 H 95 Room Air 07/04/22 08:19 07/04/22 08:19 07/04/22 08:19 07/04/22 08:19 07/04/22 08:19 07/04/22 08:19 Oxygen Delivery Method Room Air Weight: 66 kg Body Mass Index (BMI) 19.3 Intake & Output: Intake and Output for Last 24 Hours 07/02/22 07/03/22 07/04/22 23:59 23:59 23:59 Intake Total 2150 / 2710 2360 / 2560 250 / 250 Balance 2150 / 2710 2360 / 2560 250 / 250 Medical Nutrition Assessment Dietitian: Malnutrition Criteria Met Start: 07/02/22 08:06 Freq: Status: Active Protocol: Document 07/03/22 13:10 AG (Rec: 07/03/22 13:10 AG [id number]) Nutrition Malnutrition Evidence of Malnutrition Exists Yes Malnutrition (severe): Chronic Evidenced By Suboptimal Energy Intake ( Severe),Weight Loss (Severe), Physical Changes (Severe) Clinical Problem Chronic Disease or Condition Related Malnutrition Etiology severe, chronic malnutrition related to inadequate energy intake d/t swallowing difficulties Signs/Symptoms as evidenced by estimated PO intake meeting <75% of estimated energy needs >3 months; unintentional wt loss of ~20.2#/12%; obvious, severe muscle wasting fat loss evident in orbital, clavicle, acromion, and temporal areas per physical exam; BMI 19.1 Status Active Problem Recommendation Dietitian Recommendations/Changes 1. Chronic NPO per RESIDENTIAL TREATMENT COUNSELOR. 2. Concerns tube feeding formula contributing to cholelithiasis as Nepro is very high in fat. Recommend adjusting enteral nutrition to Vital AF 1.2. After ERCP/ cholecystectomy, would recommend initiating continuous enteral nutrition via PEG at goal rate of 70mL/ hour w/ 150mL H2O flush every 2 hours to provide 2016 calories, 126 g protein, and 3162mL total fluid/day. Would start at 35mL/hour and increase by 15mL/hour every 8- 12 hours as tolerated until goal rate is achieved. Will adjust to bolus feeds once tolerance of continuous tube feeds is established. 3. Daily wts. Close monitoring of labs. Lab / Micro Data Result Diagrams: 07/04/22 06:23 07/04/22 06:23 Labs: Laboratory Results - last 24 hr 07/04/22 06:23: WBC 16.8 H, RBC 2.69 L, Hgb 7.7 L, Hct 24.1 L, MCV 89.6, MCH 28.6, MCHC 32.0, RDW Std Deviation 56.4 H, RDW Coeff of Gustabo 17.2 H, Plt Count 588 H, MPV 10.2, Immature Gran % (Auto) 3.700 H, Neut % (Auto) 88.8 H, Lymph % (Auto) 3.0 L, Richardson % (Auto) 4.3, Eos % (Auto) 0.0, Baso % (Auto) 0.2, Absolute Neuts (auto) 14.9 H, Absolute Lymphs (auto) 0.51 L, Nucleated RBC % 0, Platelet Estimate MOD INC, Anisocytosis 1+ 07/04/22 06:23: Sodium 139, Potassium 5.2 H, Chloride 110 H, Carbon Dioxide 23.0, Anion Gap 6, BUN 45 H, Creatinine 1.64 H, Estim Creat Clear Calc 34.10, Est GFR (MDRD) Af Amer 52 L, Est GFR (MDRD) Non-Af 43 L, BUN/Creatinine Ratio 27.4 H, Glucose 116 H, Calcium 9.2, Total Bilirubin 0.30, AST 68 H, ALT 103 H, Alkaline Phosphatase 469 H, Total Protein 7.4, Albumin 1.8 L, Globulin 5.6 H, Albumin/Globulin Ratio 0.3 L 07/04/22 06:23: Lipase 332 Micro: Microbiology 07/02/22 07:55 Blood Culture (Wb) - Anticubital Right Blood Culture - Preliminary No growth in 48 hours. 07/02/22 07:47 Blood Culture (Wb) - Left Hand Blood Culture - Preliminary No growth in 48 hours. Radiography Diagnostic Testing: Radiology Impression Endo Retro Cholangiopancreatogram 07/03/22 16:05 IMPRESSION: Fluoroscopy provided during an ERCP. Electronically Signed: Adrian Arguello DO at 17:03 EDT Reading Location ID and State: [facility] / [place] Tel [phone], Service support , Physical Exam Const alert Constitutional Narrative: Oriented, thin HEENT normocephalic and head/scalp atraumatic Eyes Eyes Narrative: EOM grossly intact, anicteric Neck supple Resp normal respiratory effort and clear to auscultation bilaterally Resp Narrative: Somewhat managed at the bases Cardio regular rate and regular rhythm GI soft to palpation, non-tender and non-distended GI Narrative: Improving tenderness, no rebound, guarding, rigidity. Extremity Extremity Narrative: No edema appreciated Neuro moves all extremities Neuro Narrative: No overt focal deficits appreciated Psych Psych Narrative: Cooperative Assessment & Plan Assessment/Plan (1) Cholelithiasis: PLAN: Plan Was recently admitted 06/11/2022 after stroke status post tPA complicated by urinary infection and bacteremia as well as left ureteral stone requiring left ureteral stent and nonfunctional larynx requiring PEG. He was transferred to TCU with debility and was there for rehab prior to discharge home alone but was found to have abnormal labs while in TCU on 07/01/2022 and was transferred for admission. GI was consulted because there was possible abdominal pain and abnormal labs. Recent gallbladder ultrasound showed calculi and sludge. #Pancreatitis secondary to cholelithiasis Elevated liver chemistry and lipase Did additionally have leukocytosis as well as elevated CRP and ESR He was admitted to [facility] and GI consulted for possible ERCP and lap pari Does have increasing leukocytosis and given labs and clinical presentation he was started on Zosyn, is on normal saline at 75 an hour 07/03/2022?was resumed on tube feeds until midnight with plans for ERCP today Trending LFTs 07/04/2022: Status post ERCP on 07/03. Had benign-appearing esophageal stenosis that was dilated, diffuse biliary stricture in the lower third of the main duct. Entire main bile duct dilated. Choledocholithiasis found and complete removal was accomplished by sphincterotomy and balloon extraction. Biliary tree swept temporary stent placed into the ventral pancreatic duct. General reconsulted, with plan for lap pari tomorrow. White count did increase, will be continuing Zosyn at this time. #Leukocytosis Was 17.2 yesterday, started on Zosyn by GI Unclear if hepatobiliary infection or leukemoid reaction Did improve today on Zosyn however, will continue at this time Blood pressure is also improved 07/04/2022: Did slightly worsened today, her lab bleed #Anemia of chronic disease Hemoglobin has been low since May 2021 Hemoglobin 7.7 07/02/2022 #History of CVA in May 2022 CTA of head and neck at that time showed left A1 segment occlusion and moderate stenosis of right ICA stent as well as possible focal dissection distal to the stent as well as moderate stenosis of left ICA and occlusion/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 Feeds need held at midnight 07/04/2022 for lap pari in a.m. #DVT prophylaxis, SCDs Charges/Coding Visit Charges Inpatient E&M: 83990 Subs Hosp L2
[2022-07-04] MEDS: Aspirin 81 MG TAB.CHEW 324 MG GT (11:46)
[2022-07-04] MEDS: Ursodiol 250 MG Tablet GT ×2 (11:46→17:12)
[2022-07-04] MEDS: Acetylcysteine (Mucomyst Oral) 20% SOLN 1200 MG GT (11:47)
[2022-07-04] MEDS: Vital AF 1.2 Cal Liquid 1,000 ML 360 ML GT ×2 (11:52→17:31)
--- NOTE | 2022-07-04 12:35 | CON.PCM.SX_ITS ---
Assessment & Plan Assessment/Plan (1) Cholelithiasis: (2) Gallstone pancreatitis: (3) Cholelithiasis with choledocholithiasis: PLAN: Plan This is a 81-year-old male, with numerous medical comorbidities enumerated in the HPI, who is admitted for management of gallstone pancreatitis and choledocholithiasis with cholelithiasis. Although he is visibly frail and has a number of diagnoses, these conditions appear to be stable and he has tolerated multiple procedures this year without issue. Therefore I found it reasonable to offer him a same admission laparoscopic cholecystectomy to minimize his chances for recurrence of his current gallstone pancreatitis and choledocholithiasis. Regarding his pancreatitis, patient's pain appears completely resolved and his lipase is now within normal limits. Patient expresses understanding of this rationale and accepts the recommendation. I have also notified patient's power of county attorney, Mr. Mace who provides his consent via telephone with nurse witness. He has a history of PEG tube placement and bilateral inguinal hernias and the former will need to be negotiated during the procedure. We will plan to place this tube to suction to minimize obstruction and interference from the stomach. ? Tube feeds to be held past midnight tonight ? 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 Patient went for ERCP with stone extraction and stent placement yesterday with gastroenterology. Choledocholithiasis was found with this procedure and surgery is consulted to evaluate patient for same admission and cholecystectomy. The meantime patient also had a updated right upper quadrant ultrasound performed which showed borderline gallbladder wall thickness, no pericholecystic fluid, but confirmed cholelithiasis and possible adenomyomatosis. Patient states that he is overall feeling better today following his procedure yesterday. He grumbles that he has not yet had any nutrition today. He denies any abdominal discomfort this morning. Patient confirms a history of a carotid artery stent and use of Plavix, but reports discontinuation around the time of a spinal cord stimulator that was placed this summer. He denies any adverse reactions to either anesthesia or sedation with his recent procedures. It is noted that while at TCU, patient required replacement of a PEG tube by gastroenterology for his ongoing nutrition needs as he is unable to ingest anything orally. [facility] Medical History (Updated 07/04/22 @ 12:[address] Brandon Stevens MD) Alcohol abuse Alcohol use Arthritis Asymmetric septal hypertrophy Back pain Benign neoplasm of colon Bifascicular bundle branch block BPH (benign prostatic hypertrophy) Cancer Cardiology follow-up encounter Chest pain Chronic cough Chronic pain COPD (chronic obstructive pulmonary disease) Depression Difficulty chewing Dyspnea Former smoker Former smoker Gastric reflux GERD (gastroesophageal reflux disease) Grade I diastolic dysfunction Hiatal hernia History of echocardiogram History of hypertension History of malignant neoplasm of larynx History of pain when walking History of steroid therapy History of stress test Hoarseness Hypertension Hypertension Injury of head and neck Loss of consciousness Lumbar spinal stenosis Microscopic hematuria Nephrolithiasis Neuropathic pain Osteoarthritis of left knee Pharyngeal cancer Restenosis of arterial stent Rhinitis Shortness of breath on exertion Silent aspiration TIA (transient ischemic attack) Wears dentures Wears glasses Home Medications albuterol sulfate 90 mcg/actuation aerosol inhaler 2 puff inhalation Q6H PRN PRN Sob &/Or Wheezing 10/01/19 [History Last Taken Unknown] atorvastatin 40 mg tablet 80 mg feeding tube QHS cholesterol 12/08/21 [History Last Taken 06/30/22 20:14] mirtazapine 15 mg tablet 15 mg feeding tube QHS sleep/appetite 05/28/22 [History Last Taken 06/30/22 20:14] Arthritis Pain Compound 3 click topical BID PRN Pain 06/11/22 [History Last Taken Unknown] aspirin 81 mg chewable tablet 324 mg G-tube DAILYCM blood thinner 06/11/22 [History Last Taken 07/01/22 08:17] bisacodyl 10 mg rectal suppository 10 mg MD .PRN X 1 PRN Constipation #0 ea 06/11/22 [Rx Last Taken Unknown] fluticasone 232 mcg-salmeterol 14 mcg/actuation breath activated powdr 1 inh inhalation Q12 shortness of breath/wheezing 06/11/22 [History Last Taken 07/01/22 06:16] magnesium hydroxide 400 mg/5 mL oral suspension 30 ml PO .PRN X 1 PRN Constipation #0 mL 06/11/22 [Rx Last Taken Unknown] midodrine 5 mg tablet 5 mg G-tube TID 06/11/22 [History Last Taken 07/01/22 06:15] nut.tx.imp.renal fxn,lac-reduc 0.08 gram-1.8 kcal/mL oral liquid (Nepro Carb Steady) 360 ml G-tube 4X/DAY supplement 06/11/22 [History Last Taken 07/01/22 06:16] nystatin 100,000 unit/gram topical powder (Nyamyc) 1 applic topical BID PRN redness/moisture 06/11/22 [History Last Taken Unknown] nystatin-triamcinolone 100,000 unit/g-0.1 % topical cream 1 applic topical BID@0600,2200 topical treatment 06/11/22 [History Last Taken Unknown] oxycodone 5 mg tablet 5 mg PO Q4H PRN PRN Pain Score 1-10 #0 tabs 06/11/22 [Rx Last Taken Unknown] simethicone 40 mg/0.6 mL oral drops,suspension (Infants Simethicone) 80 mg G- tube Q6 digestion 06/11/22 [History Last Taken 07/01/22 06:16] zolpidem 5 mg tablet 5 mg PO QHS PRN PRN Insomnia #1 TAB 06/11/22 [Rx Last Taken Unknown] acetylcysteine 200 mg/mL (20 %) solution 6 ml PO DAILY 07/01/22 [History Last Taken 07/01/22 06:15] gabapentin 300 mg capsule 300 mg feeding tube TID 07/01/22 [History Last Taken 07/01/22 06:15] potassium chloride 20 mEq/15 mL oral liquid 20 meq PO DAILY 07/01/22 [History Last Taken 07/01/22 08:17] sertraline 50 mg tablet 50 mg PO DAILY 07/01/22 [History Last Taken 07/01/22 06:15] ursodiol 250 mg tablet 250 mg PO TIDCM 07/01/22 [History Last Taken 06/30/22 18:28] Allergy/AdvReac Type Severity Reaction Status Date / Time mold Allergy NEEDS Verified 05/08/22 17:10 FOLLOW-UP house dust AdvReac SNEEZING Verified 05/08/22 17:10 morphine AdvReac Vomiting Verified 05/08/22 17:10 poison kayleen extract AdvReac Rash Verified 05/08/22 17:10 Family History Mother CAD (coronary artery disease) Brother COPD (chronic obstructive pulmonary disease) Surgical History H/O hernia repair History of cardiac catheterization History of esophageal dilatation History of heart artery stent History of laminectomy History of tonsillectomy Hx of colonoscopy Internal carotid artery stent present S/P total knee arthroplasty Spinal cord stimulator status Status post insertion of percutaneous endoscopic gastrostomy (PEG) tube Status post total left knee replacement Ureteral stent present Social History household members: none housing: house number of children: 0 current occupational status: retired Smoking Status: Former smoker Smokeless tobacco user: chewing tobacco and other how long ago did patient quit smokin alcohol intake: former substance use type: does not use ROS Gastrointestinal Gastrointestinal: Reports abdominal pain, diarrhea and loose stools; Denies melena Physical Exam Const alert, oriented x3 and no apparent distress General Appearance: frail Resp normal respiratory effort Medical Records Data Medical Nutrition Assessment Dietitian: Malnutrition Criteria Met Start: 07/02/22 08:06 Freq: Status: Active Protocol: Document 07/03/22 13:10 AG (Rec: 07/03/22 13:10 [id number]) Nutrition Malnutrition Evidence of Malnutrition Exists Yes Malnutrition (severe): Chronic Evidenced By Suboptimal Energy Intake ( Severe),Weight Loss (Severe), Physical Changes (Severe) Clinical Problem Chronic Disease or Condition Related Malnutrition Etiology severe, chronic malnutrition related to inadequate energy intake d/t swallowing difficulties Signs/Symptoms as evidenced by estimated PO intake meeting <75% of estimated energy needs >3 months; unintentional wt loss of ~20.2#/12%; obvious, severe muscle wasting fat loss evident in orbital, clavicle, acromion, and temporal areas per physical exam; BMI 19.1 Status Active Problem Recommendation Dietitian Recommendations/Changes 1. Chronic NPO per MANAGER POOL. 2. Concerns tube feeding formula contributing to cholelithiasis as Nepro is very high in fat. Recommend adjusting enteral nutrition to Vital AF 1.2. After ERCP/ cholecystectomy, would recommend initiating continuous enteral nutrition via PEG at goal rate of 70mL/ hour w/ 150mL H2O flush every 2 hours to provide 2016 calories, 126 g protein, and 3162mL total fluid/day. Would start at 35mL/hour and increase by 15mL/hour every 8- 12 hours as tolerated until goal rate is achieved. Will adjust to bolus feeds once tolerance of continuous tube feeds is established. 3. Daily wts. Close monitoring of labs. Lab / Micro Data Result Diagrams: 07/04/22 06:23 07/04/22 06:23 Labs: Laboratory Results - last 24 hr 07/04/22 06:23: WBC 16.8 H, RBC 2.69 L, Hgb 7.7 L, Hct 24.1 L, MCV 89.6, MCH 28.6, MCHC 32.0, RDW Std Deviation 56.4 H, RDW Coeff of [place] 17.2 H, Plt Count 588 H, MPV 10.2, Immature Gran % (Auto) 3.700 H, Neut % (Auto) 88.8 H, Lymph % (Auto) 3.0 L, [place] % (Auto) 4.3, Eos % (Auto) 0.0, Baso % (Auto) 0.2, Absolute Neuts (auto) 14.9 H, Absolute Lymphs (auto) 0.51 L, Nucleated RBC % 0, Platelet Estimate MOD INC, Anisocytosis 1+ 07/04/22 06:23: Sodium 139, Potassium 5.2 H, Chloride 110 H, Carbon Dioxide 23.0, Anion Gap 6, BUN 45 H, Creatinine 1.64 H, Estim Creat Clear Calc 34.10, Est GFR (MDRD) Af Amer 52 L, Est GFR (MDRD) Non-Af 43 L, BUN/Creatinine Ratio 27.4 H, Glucose 116 H, Calcium 9.2, Total Bilirubin 0.30, AST 68 H, ALT 103 H, A lkaline Phosphatase 469 H, Total Protein 7.4, Albumin 1.8 L, Globulin 5.6 H, Albumin/Globulin Ratio 0.3 L 07/04/22 06:23: Lipase 332 Micro: Microbiology 07/02/22 07:55 Blood Culture (Wb) - Anticubital Right Blood Culture - Prel iminary No growth in 48 hours. 07/02/22 07:47 Blood Culture (Wb) - Left Hand Blood Culture - Preliminary No growth in 48 hours. Radiology Impression Endo Retro Cholangiopancreatogram 07/03/22 16:05 IMPRESSION: Fluoroscopy provided during an ERCP. Electronically Signed: Adrian Arguello DO at 17:03 EDT Reading Location ID and State: [address] [place] [address] Tel [phone], Service support , Charges/Coding Visit Charges Office Visits / Consults: [id number] IP Consult L2
[2022-07-04] MEDS: Sertraline 50 MG Tablet GT (22:34)
[2022-07-04] MEDS: Atorvastatin Calcium 80 MG Tablet GT (22:34)
[2022-07-04] MEDS: Mirtazapine 15 MG Tablet GT (22:34)
[2022-07-05] VITALS (15 sets, daily range): BP systolic 112–145; BP diastolic 70–91; PULSE 76–110; RESP 14–18; TEMP 36.5–37.4; O2SAT 92–98; BMI 19.0; BMI 19.3
--- NOTE | 2022-07-05 06:54 | PCM.PN.HOSP ---
Subjective Subjective DOS: 07/05/2022 CC: Pancreatitis Reports his belly pain is there. He is for lap pari today. Denies chest pain or shortness of breath. Overall is feeling somewhat better. Did not voice any other complaints at this time. Objective Data Objective Data Vital Signs: Vital Signs Temp Pulse Resp BP Pulse Ox O2 Del Method 97.8 F 86 16 140/78 H 94 Room Air 07/05/22 06:00 07/05/22 06:00 07/05/22 06:00 07/05/22 06:00 07/05/22 06:00 07/05/22 06:00 Oxygen Delivery Method Room Air Weight: 65 kg Body Mass Index (BMI) 19.0 Intake & Output: Intake and Output for Last 24 Hours 07/03/22 07/04/22 07/05/22 23:59 23:59 23:59 Intake Total 2360 / 2560 1470 / 1470 50 / 50 Balance 2360 / 2560 1470 / 1470 50 / 50 Medical Nutrition Assessment Dietitian: Malnutrition Criteria Met Start: 07/02/22 08:06 Freq: Status: Active Protocol: Document 07/03/22 13:10 AG (Rec: 07/03/22 13:10 AG [id number]) Nutrition Malnutrition Evidence of Malnutrition Exists Yes Malnutrition (severe): Chronic Evidenced By Suboptimal Energy Intake ( Severe),Weight Loss (Severe), Physical Changes (Severe) Clinical Problem Chronic Disease or Condition Related Malnutrition Etiology severe, chronic malnutrition related to inadequate energy intake d/t swallowing difficulties Signs/Symptoms as evidenced by estimated PO intake meeting <75% of estimated energy needs >3 months; unintentional wt loss of ~20.2#/12%; obvious, severe muscle wasting fat loss evident in orbital, clavicle, acromion, and temporal areas per physical exam; BMI 19.1 Status Active Problem Recommendation Dietitian Recommendations/Changes 1. Chronic NPO per ADULT MINISTRIES DIRECTOR. 2. Concerns tube feeding formula contributing to cholelithiasis as Nepro is very high in fat. Recommend adjusting enteral nutrition to Vital AF 1.2. After ERCP/ cholecystectomy, would recommend initiating continuous enteral nutrition via PEG at goal rate of 70mL/ hour w/ 150mL H2O flush every 2 hours to provide 2016 calories, 126 g protein, and 3162mL total fluid/day. Would start at 35mL/hour and increase by 15mL/hour every 8- 12 hours as tolerated until goal rate is achieved. Will adjust to bolus feeds once tolerance of continuous tube feeds is established. 3. Daily wts. Close monitoring of labs. Lab / Micro Data Result Diagrams: 07/05/22 06:10 07/04/22 06:23 Labs: Laboratory Results - last 24 hr 07/04/22 06:23: WBC 16.8 H, RBC 2.69 L, Hgb 7.7 L, Hct 24.1 L, MCV 89.6, MCH 28.6, MCHC 32.0, RDW Std Deviation 56.4 H, RDW Coeff of [place] 17.2 H, Plt Count 588 H, MPV 10.2, Immature Gran % (Auto) 3.700 H, Neut % (Auto) 88.8 H, Lymph % (Auto) 3.0 L, [place] % (Auto) 4.3, Eos % (Auto) 0.0, Baso % (Auto) 0.2, Absolute Neuts (auto) 14.9 H, Absolute Lymphs (auto) 0.51 L, Nucleated RBC % 0, Platelet Estimate MOD INC, Anisocytosis 1+ 07/04/22 06:23: Sodium 139, Potassium 5.2 H, Chloride 110 H, Carbon Dioxide 23.0, Anion Gap 6, BUN 45 H, Creatinine 1.64 H, Estim Creat Clear Calc 34.10, Est GFR (MDRD) Af Amer 52 L, Est GFR (MDRD) Non-Af 43 L, BUN/Creatinine Ratio 27.4 H, Glucose 116 H, Calcium 9.2, Total Bilirubin 0.30, AST 68 H, ALT 103 H, Alkaline Phosphatase 469 H, Total Protein 7.4, Albumin 1.8 L, Globulin 5.6 H, Albumin/Globulin Ratio 0.3 L 07/04/22 06:23: Lipase 332 Micro: Microbiology 07/02/22 07:55 Blood Culture (Wb) - Anticubital Right Blood Culture - Preliminary No growth in 48 hours. 07/02/22 07:47 Blood Culture (Wb) - Left Hand Blood Culture - Preliminary No growth in 48 hours. Physical Exam Const alert Constitutional Narrative: Oriented, thin HEENT normocephalic and head/scalp atraumatic Eyes Eyes Narrative: EOM grossly intact, anicteric Neck supple Resp normal respiratory effort and clear to auscultation bilaterally Resp Narrative: Somewhat managed at the bases Cardio regular rate and regular rhythm GI soft to palpation, non-tender and non-distended GI Narrative: Improving tenderness, no rebound, guarding, rigidity. Extremity Extremity Narrative: No edema appreciated Neuro moves all extremities Neuro Narrative: No overt focal deficits appreciated Psych Psych Narrative: Cooperative Assessment & Plan Assessment/Plan (1) Cholelithiasis: PLAN: Plan Was recently admitted 06/11/2022 after stroke status post tPA complicated by urinary infection and bacteremia as well as left ureteral stone requiring left ureteral stent and nonfunctional larynx requiring PEG. He was transferred to TCU with debility and was there for rehab prior to discharge home alone but was found to have abnormal labs while in TCU on 07/01/2022 and was transferred for admission. GI was consulted because there was possible abdominal pain and abnormal labs. Recent gallbladder ultrasound showed calculi and sludge. #Pancreatitis secondary to cholelithiasis Elevated liver chemistry and lipase Did additionally have leukocytosis as well as elevated CRP and ESR He was admitted to [facility] and GI consulted for possible ERCP and lap pari Does have increasing leukocytosis and given labs and clinical presentation he was started on Zosyn, is on normal saline at 75 an hour 07/03/2022?was resumed on tube feeds until midnight with plans for ERCP today Trending LFTs 07/04/2022: Status post ERCP on 07/03. Had benign-appearing esophageal stenosis that was dilated, diffuse biliary stricture in the lower third of the main duct. Entire main bile duct dilated. Choledocholithiasis found and complete removal was accomplished by sphincterotomy and balloon extraction. Biliary tree swept temporary stent placed into the ventral pancreatic duct. General reconsulted, with plan for lap pari tomorrow. White count did increase, will be continuing Zosyn at this time. 07/05/2022: For lap pari today, will follow up again after. Continue Zosyn at this time #Leukocytosis Was 17.2 yesterday, started on Zosyn by GI Unclear if hepatobiliary infection or leukemoid reaction Did improve today on Zosyn however, will continue at this time Blood pressure is also improved 07/04/2022: Did slightly worsened today 07/05/2022: A.m. labs pending, continue Zosyn at this time #Anemia of chronic disease Hemoglobin has been low since May 2021 Hemoglobin 7.7 07/02/2022 #History of CVA in May 2022 CTA of head and neck at that time showed left A1 segment occlusion and moderate stenosis of right ICA stent as well as possible focal dissection distal to the stent as well as moderate stenosis of left ICA and occlusion/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 Feeds need held at midnight 07/04/2022 for lap pari in a.m. 09/04: Tube feeds off for lap pari. #DVT prophylaxis, SCDs Charges/Coding Visit Charges Inpatient E&M: 53172 Subs Hosp L2
[2022-07-05 07:24] LABS: Absolute Lymphocyte Count 1.12 X10^3/uL (0.83-4.51); Absolute Neutrophil Count 9.2 X10^3/uL (2.0-7.7); Basophil# 0.07 X10^3/uL; Basophil% 0.6 % (0-1); Eosinophil# 0.34 X10^3/uL; Eosinophils% 2.8 % (0-5); Hematocrit 24.2 % (40-54); Hemoglobin 7.4 g/dL (13.0-16.5); Lymphocyte # 1.12 X10^3/ul (0.83-4.51); Lymphocyte % 9.3 % (19-41); Mean Corp Hgb Conc 30.6 g/dL (32-36); Mean Corpuscular Hgb 27.7 pg (27.0-32.0); Mean Corpuscular Volume 90.6 fL (80-94); Mean Platelet Vol. 9.9 fl (6.2-12.0); Monocyte# 0.88 X10^3/uL; Monocyte% 7.3 % (0-10); NRBC Flagged by Analyzer 0 % (0-5); Neutrophil % 76.2 % (47-70); Platelet Count 636 K/mm3 (150-450); RBC Distribution Width CV 17.3 % (11.6-14.6); RBC Distribution Width SD 58.3 fl (35.1-43.9); Red Blood Count 2.67 M/mm3 (4.6-6.2); White Blood Count 12.1 K/mm3 (4.4-11.0)
--- NOTE | 2022-07-05 07:27 | PCM.PN.SRG ---
Subjective Subjective Patient seen and examined this AM. He confirms that he has not had anything to be his feeding tube since yesterday. He denies any abdominal pain. He denies any questions for today's procedure. Objective Data Objective Data Vital Signs: Vital Signs Temp Pulse Resp BP Pulse Ox O2 Del Method 97.8 F 86 16 140/78 H 94 Room Air 07/05/22 06:00 07/05/22 06:00 07/05/22 06:00 07/05/22 06:00 07/05/22 06:00 07/05/22 06:00 Oxygen Delivery Method Room Air Weight: 143 lb 4.807 oz Body Mass Index (BMI) 19.0 Intake & Output: Intake and Output for Last 24 Hours 07/03/22 07/04/22 07/05/22 23:59 23:59 23:59 Intake Total 2360 / 2560 1470 / 1470 50 / 50 Balance 2360 / 2560 1470 / 1470 50 / 50 Medical Nutrition Assessment Dietitian: Malnutrition Criteria Met Start: 07/02/22 08:06 Freq: Status: Active Protocol: Document 07/03/22 13:10 AG (Rec: 07/03/22 13:10 AG [id number]) Nutrition Malnutrition Evidence of Malnutrition Exists Yes Malnutrition (severe): Chronic Evidenced By Suboptimal Energy Intake ( Severe),Weight Loss (Severe), Physical Changes (Severe) Clinical Problem Chronic Disease or Condition Related Malnutrition Etiology severe, chronic malnutrition related to inadequate energy intake d/t swallowing difficulties Signs/Symptoms as evidenced by estimated PO intake meeting <75% of estimated energy needs >3 months; unintentional wt loss of ~20.2#/12%; obvious, severe muscle wasting fat loss evident in orbital, clavicle, acromion, and temporal areas per physical exam; BMI 19.1 Status Active Problem Recommendation Dietitian Recommendations/Changes 1. Chronic NPO per SALES REPRESENTATIVE BUSINESS COURSES. 2. Concerns tube feeding formula contributing to cholelithiasis as Nepro is very high in fat. Recommend adjusting enteral nutrition to Vital AF 1.2. After ERCP/ cholecystectomy, would recommend initiating continuous enteral nutrition via PEG at goal rate of 70mL/ hour w/ 150mL H2O flush every 2 hours to provide 2016 calories, 126 g protein, and 3162mL total fluid/day. Would start at 35mL/hour and increase by 15mL/hour every 8- 12 hours as tolerated until goal rate is achieved. Will adjust to bolus feeds once tolerance of continuous tube feeds is established. 3. Daily wts. Close monitoring of labs. Lab / Micro Data Result Diagrams: 07/05/22 06:10 07/04/22 06:23 Labs: Laboratory Results - last 24 hr 07/04/22 06:23: Platelet Estimate MOD INC, Anisocytosis 1+ 07/04/22 06:23: Sodium 139, Potassium 5.2 H, Chloride 110 H, Carbon Dioxide 23.0, Anion Gap 6, BUN 45 H, Creatinine 1.64 H, Estim Creat Clear Calc 34.10, Est GFR (MDRD) Af Amer 52 L, Est GFR (MDRD) Non-Af 43 L, BUN/Creatinine Ratio 27.4 H, Glucose 116 H, Calcium 9.2, Total Bilirubin 0.30, AST 68 H, ALT 103 H, Alkaline Phosphatase 469 H, Total Protein 7.4, Albumin 1.8 L, Globulin 5.6 H, Albumin/Globulin Ratio 0.3 L 07/04/22 06:23: Lipase 332 07/05/22 06:10: WBC 12.1 H, RBC 2.67 L, Hgb 7.4 L, Hct 24.2 L, MCV 90.6, MCH 27.7, MCHC 30.6 L, RDW Std Deviation 58.3 H, RDW Coeff of [place] 17.3 H, Plt Count 636 H, MPV 9.9, Immature Gran % (Auto) 3.800 H, Neut % (Auto) 76.2 H, Lymph % (Auto) 9.3 L, [place] % (Auto) 7.3, Eos % (Auto) 2.8, Baso % (Auto) 0.6, Absolute Neuts (auto) 9.2 H, Absolute Lymphs (auto) 1.12, Nucleated RBC % 0 Micro: Microbiology 07/02/22 07:55 Blood Culture (Wb) - Anticubital Right Blood Culture - Preliminary No growth in 48 hours. 07/02/22 07:47 Blood Culture (Wb) - Left Hand Blood Culture - Preliminary No growth in 48 hours. Physical Exam Const oriented x3 and no apparent distress Resp normal respiratory effort GI GI Narrative: Slender, PEG tube in place, nondistended, soft, nontender to palpation Assessment & Plan Assessment/Plan (1) Cholelithiasis: (2) Gallstone pancreatitis: (3) Cholelithiasis with choledocholithiasis: PLAN: Plan This is a 81-year-old male, with numerous medical comorbidities, who is admitted for management of gallstone pancreatitis and choledocholithiasis with cholelithiasis. Although he is visibly frail and has a number of diagnoses, these conditions appear to be stable and he has tolerated multiple procedures this year without issue. Therefore he was offered same admission laparoscopic cholecystectomy with cholangiogram to minimize his risk for recurrent gallstone pancreatitis/choledocholithiasis. Plan is to proceed with this operation today after be obtained necessary permissions from his power of assistant attorney general yesterday. Patient denies any questions and is ready to proceed as recommended. Patient to return to the floor following the operating room. Charges/Coding Visit Charges Inpatient E&M: 62194 Subs Hosp L2
[2022-07-05 07:33] LABS: International Normalized Ratio 1.4; Prothrombin Time (Protime)PT. 16.7 SECONDS (11.7-14.9)
[2022-07-05 07:57] LABS: ALB/GLOB Ratio 0.4 RATIO (0.9-2.4); AST(SGOT) 54 U/L (15-37); Alanine Aminotransfer ALT/SGPT 86 U/L (16-61); Albumin, Serum 1.9 g/dL (3.2-5.0); Alkaline Phosphatase 383 U/L (45-117); Anion Gap 9 (5-15); BUN 44 mg/dL (7-18); BUN/Creat Ratio 25.6 RATIO (10-20); Calcium,Total 8.8 mg/dL (8.5-10.1); Chloride 113 mmol/L (98-107); Creatinine, Serum 1.72 mg/dL (0.70-1.30); EST Glomerular Filtration Rate 41 mL/min (>60); Est Glom Filt Rate - Afr Amer 50 mL/min (>60); Estimated Creatinine Clearance 32.02 ml/min; Globulin 5.3 g/dL (2.2-4.2); Glucose 85 mg/dL (74-106); Magnesium 2.4 mg/dL (1.6-2.6); Phosphorus 3.9 mg/dL (2.5-4.9); Potassium 4.4 mmol/L (3.5-5.1); Protein, Total 7.2 g/dL (6.4-8.2); Sodium Level 145 mmol/L (136-145)
--- NOTE | 2022-07-05 08:25 | RAD_ITS ---
CLINICAL HISTORY: Male, 81 years old. Abdominal pain PROCEDURE: CHOLANGIOGRAM - intraoperative FLUOROSCOPY TIME (if supplied): (16.7) minutes/seconds TECHNIQUE: (All elements of maximal sterile barrier technique followed, including US elements as applicable) 16.7 seconds of fluoroscopy of the abdomen was utilized and operating room during intraoperative cholangiogram and a single cine run is made of for interpretation. FINDINGS: A cannula seen in the cystic duct remnant. There is no evidence of filling defect within the common bile duct to suggest common bile duct stone. There is a spillage of contrast through the ampulla into the duodenum. RAD/Cholangiogram/ O R,Initial IMPRESSION: No common bile duct stone. Electronically Signed: David Pittman MD at 10:41 EDT ,
--- NOTE | 2022-07-05 08:50 | GALL_PTH ---
PATIENT: MADDI JAMESON LOC: [facility] U#:[id number] AGE/SX: 81/M ROOM: [facility] [place]07/01/[address]: Dr. Romana Mathis MD : [id number] BED: 1 DIS: 07/06/2022 SPEC #: [id number] RECD: 07/06/22 07:01 STATUS: JEFE REManuel #: [id number] FER: 07/05/22 08:[address]: Brandon Stevens DEPT: SURGICAL PATHOLOGY RECD BY: Muna Cervantes ENTERED: 07/06/22 09:05 SP TYPE: GALLBLADDE OTHR DR: MD Dr. Brandon Retana MD Dr. Prakash Chand, MD Dr. Paige Pierce, MD Dr. William Lago, MD Tissues: Gallbladder, NOS Procedures: Surgery Specimen Level III Comments: @ Ordering doctor for SUIII edited from to @ by BILLY at 07/06/22 1403 @ Submitting doctor edited from to @ by RGOOD at 07/06/22 1403 HEADER OPERATION: Laparoscopic cholecystectomy with IOC PRE-OP DIAGNOSIS: Cholelithiasis with choledocholithiasis, gallstone pancreatitis TISSUE SUBMITTED: Gallbladder MICROSCOPIC DIAGNOSIS Gallbladder, cholecystectomy: Chronic cholecystitis and cholelithiasis. AM:yoli 07/07/2022 MICROSCOPIC DESCRIPTION Slides are reviewed. GROSS DESCRIPTION Received is one container labeled with the patient's name and designated gallbladder. The specimen consists of a distended gallbladder measuring 12 x 6 x 4 cm. The external surface is smooth and glistening. Focally, it is granular, hemorrhagic and contains cautery artifact. The lumen of the gallbladder contains yellow-green mucoid bile and multiple black calculi ranging in size from 0.1 to 0.2 cm in greatest dimension. The mucosa is bile-stained and without any mass lesions. The gallbladder wall averages 0.1 cm in thickness and is free of mass lesions. Concrete Layer sections of the gallbladder and the cystic duct at margin of resection are submitted in one cassette. / AM:yoli 07/06/2022 TC:3 CPT: 64899
[2022-07-05] MEDS: Bupivacaine 0.25% 30 ML Vial (09:10)
--- NOTE | 2022-07-05 09:18 | OP.PCM_ITS ---
Report of Operation Date of Procedure: 07/05/22 Pre-Operative Diagnosis: 1. Gallstone pancreatitis 2. Choledocholithiasis status post ERCP and stone extraction Post-Operative Diagnosis: 1. Gallstone pancreatitis 2. Choledocholithiasis status post ERCP and stone extraction 3. Acute cholecystitis Surgery/Procedure Performed:: Laparoscopic cholecystectomy with intraoperative cholangiogram Surgeon: Brandon Stevens leather goods i assembler: Tammie Crawford Type of Anesthesia: General/Supplemental Anesthesiologist: Teetee Black Specimen's removed: Gallbladder Estimated Blood Loss (mL): 25 Description of Procedure: After proper identification in the preoperative holding area the patient was brought to the operating room where positioned supine on the operating room table. Preoperatively SCDs were placed and (antibiotics had been previously administered on the floor). General anesthesia was then induced. Connector tubing was attached to patient's PEG tube and then this was placed to suction to decompress the stomach. Patient's abdomen was prepped and draped in usual sterile fashion prepping but mostly excluding the PEG tube. A formal timeout was conducted to confirm both patient and the procedure. Procedure was begun with a supraumbilical incision which was extended deeply down to the level of the fascia. The fascia was elevated and incised, as well as the peritoneum. A finger sweep was performed to ensure there were no underlying adhesions and a 12 mm balloon trocar was inserted. Pneumoperitoneum was established at 15 mmHg. 3 additional trocars were placed in the epigastrium (12 mm) and in the right upper quadrant (2 x 5 mm) under laparoscopic visualization. Inspection of the peritoneum revealed no inadvertent injury to the viscera below. The gallbladder was visualized with mild inflammation and adhesions between the omentum and gallbladder fundus. These adhesions were bluntly swept down and the gallbladder fundus was then grasped and elevated cephalad. Then, using careful dissection the peritoneum was opened and the structures of the hepatocystic triangle were delineated. Once the critical view of safety was obtained, the cystic duct was singly clipped and a ductotomy was produced with partial transection of the cystic duct. On opening the cystic duct there was an abundance of biliary sludge and small stones. I swept the duct with multiple passes using a laparoscopic [place] retractor to express this sediment from within the duct. Once we were able to see bile reflux, A cholangiocatheter was fed into the proximal segment of the cystic duct and clipped into place. Under fluoroscopy a cholangiogram was then obtained showing a standard length cystic duct flowing into a common bile duct with unobstructed antegrade flow of contrast into the duodenum. There was also retrograde flow through the common hepatic duct into the right and left hepatic ducts. With this reassurance, this portion of the procedure was terminated and the cholangiocatheter was withdrawn. The cystic duct was triply clipped and sharply divided. The same process was used for the cystic artery. There was a smaller diminutive posterior cystic artery entering the gallbladder which was also clipped and divided. The gallbladder was then removed from the gallbladder fossa with the use of electrocautery. Selective electrocautery was used to obtain hemostasis in the gallbladder fossa. The gallbladder was placed in an Endo Catch bag with some difficulty given its large size. Morison's pouch was irrigated and the effluent was suctioned free of the peritoneum. Hemostasis was obtained after cautery was applied to the gallbladder fossa had a spot of oozing along the liver edge. The specimen was then extracted from the peritoneum after enlarging the supraumbilical incision to accommodate its size. We then placed towel clamps over the extraction site, reestablished pneumoperitoneum, and made quick inspection of the patient's gastrostomy site to confirm stable positioning. Pneumoperitoneum was evacuated and the fascia of the supraumbilical port site was closed with 3 X #1Vicryl in a [id number] fashion. A total of 25 mL of anesthetic was injected at the port sites for postoperative pain control. The skin of each port site was then closed in subcuticular fashion using 4-0 Monocryl. Steri-Strips and bandages were applied as dressings. Patient's PEG tube was redressed with clean dressing. Patient tolerated the procedure well without any apparent complications. On emergence from their anesthetic the patient was taken to PACU for ongoing recovery. Complications None Admit VTE Documentation VTE Present on Admission: No VTE Mechan Device Prophylaxis: SCD's Procedures Digestive 40xxx-49xxx: 00006 Laparo cholecystectomy/graph
[2022-07-05] MEDS: Simethicone 40MG/0.6ML Bottle 80 MG GT ×3 (12:46→22:21)
[2022-07-05] MEDS: Acetylcysteine (Mucomyst Oral) 20% SOLN 1200 MG GT (12:46)
[2022-07-05] MEDS: Vital AF 1.2 Cal Liquid 1,000 ML 360 ML GT ×2 (12:46→18:02)
[2022-07-05] MEDS: Ursodiol 250 MG Tablet GT ×2 (12:47→18:02)
[2022-07-05] MEDS: Albuterol 2.5 MG/3 ML VIAL.NEB. INHALATION ×2 (13:26→18:43)
[2022-07-05] MEDS: Midodrine HCl 5 MG Tablet GT ×2 (14:24→22:20)
[2022-07-05] MEDS: Gabapentin 300 MG Capsule GT ×2 (14:25→22:32)
[2022-07-05] MEDS: oxyCODONE 5 MG Tablet GT (14:25)
[2022-07-05] MEDS: Budesonide Respules 0.5 MG/2 ML AMPUL.NEB. INHALATION (18:43)
[2022-07-05] MEDS: Atorvastatin Calcium 80 MG Tablet GT (22:20)
[2022-07-05] MEDS: Mirtazapine 15 MG Tablet GT (22:20)
[2022-07-05] MEDS: Sertraline 50 MG Tablet GT (22:21)
[2022-07-06] VITALS (10 sets, daily range): BP systolic 112–134; BP diastolic 74–83; PULSE 82–90; RESP 16–18; TEMP 36.4–37.1; O2SAT 90–97; BMI 19.3
[2022-07-06] MEDS: Gabapentin 300 MG Capsule GT ×2 (05:44→13:54)
[2022-07-06] MEDS: Midodrine HCl 5 MG Tablet GT ×2 (05:44→13:55)
[2022-07-06] MEDS: Simethicone 40MG/0.6ML Bottle 80 MG GT ×2 (05:45→12:17)
[2022-07-06] MEDS: Vital AF 1.2 Cal Liquid 1,000 ML 360 ML GT ×3 (05:45→13:55)
[2022-07-06 06:54] LABS: Absolute Lymphocyte Count 0.84 X10^3/uL (0.83-4.51); Absolute Neutrophil Count 13.7 X10^3/uL (2.0-7.7); Basophil# 0.03 X10^3/uL; Basophil% 0.2 % (0-1); Eosinophil# 0.03 X10^3/uL; Eosinophils% 0.2 % (0-5); Hemoglobin 7.1 g/dL (13.0-16.5); Lymphocyte # 0.84 X10^3/ul (0.83-4.51); Lymphocyte % 5.3 % (19-41); Mean Corp Hgb Conc 30.9 g/dL (32-36); Mean Corpuscular Volume 90.6 fL (80-94); Mean Platelet Vol. 9.9 fl (6.2-12.0); Monocyte# 1.08 X10^3/uL; Monocyte% 6.8 % (0-10); NRBC Flagged by Analyzer 0 % (0-5); Neutrophil # 13.71 X10^3/uL (2.7-7.7); Neutrophil % 85.6 % (47-70); Platelet Count 637 K/mm3 (150-450); RBC Distribution Width CV 17.3 % (11.6-14.6); RBC Distribution Width SD 57.7 fl (35.1-43.9); Red Blood Count 2.54 M/mm3 (4.6-6.2)
[2022-07-06] MEDS: Budesonide Respules 0.5 MG/2 ML AMPUL.NEB. INHALATION (07:10)
[2022-07-06] MEDS: Albuterol 2.5 MG/3 ML VIAL.NEB. INHALATION ×2 (07:10→14:04)
[2022-07-06 07:17] LABS: ALB/GLOB Ratio 0.4 RATIO (0.9-2.4); AST(SGOT) 52 U/L (15-37); Alanine Aminotransfer ALT/SGPT 81 U/L (16-61); Albumin, Serum 1.9 g/dL (3.2-5.0); Alkaline Phosphatase 330 U/L (45-117); Anion Gap 7 (5-15); BUN 42 mg/dL (7-18); BUN/Creat Ratio 24.3 RATIO (10-20); Calcium,Total 8.5 mg/dL (8.5-10.1); Chloride 111 mmol/L (98-107); Creatinine, Serum 1.73 mg/dL (0.70-1.30); EST Glomerular Filtration Rate 41 mL/min (>60); Est Glom Filt Rate - Afr Amer 49 mL/min (>60); Estimated Creatinine Clearance 31.88 ml/min; Globulin 5.1 g/dL (2.2-4.2); Glucose 94 mg/dL (74-106); Magnesium 2.3 mg/dL (1.6-2.6); Potassium 4.4 mmol/L (3.5-5.1); Sodium Level 141 mmol/L (136-145)
--- NOTE | 2022-07-06 09:00 | DCINST_ITS ---
Discharge Instructions Activity Lifting Restrictions: No lifting greater than 15 pounds for 2 weeks post- operatively Dressing / Incision Call your doctor if your incision/area has: Continuous Slow Oozing, Sudden Increased Bleeding, Increased Pain/ Swelling, Increased Redness, Foul Smelling Discharge and Swelling at the incision site Call your doctor if you observe: Fever of 101 or Higher Remove Dressing in: 2 days Cleanse incision/area with: Soap & Water Follow Up Care Please Follow Up With: Brandon Stevens MD When: 1 week Test Results: Test results from this visit will be discussed in further detail at your follow- up appointment, if applicable. Discharge Plan Admission Admit Date/Time: 07/01/22 20:25 Attending Provider: Romana Mathis Primary Care Provider: Anderson Crowley Consulting Providers: Bari Geronimo ; Brandon Stevens ; Minna Jenkins Discharge Orders/Prescriptions Prescriptions: No Action albuterol sulfate 1 INHALER inhaler 2 puff inhalation Q6H PRN PRN (Reason: Sob &/Or Wheezing) atorvastatin 40 mg Tablet 80 mg feeding tube QHS mirtazapine 15 MG tablet 15 mg feeding tube QHS magnesium hydroxide 400 mg/5 mL Suspension 30 ml PO .PRN X 1 PRN (Reason: Constipation) Qty: 0 0RF bisacodyl 10 mg Suppository 10 mg MS .PRN X 1 PRN (Reason: Constipation) Qty: 0 0RF zolpidem 5 mg Tablet 5 mg PO QHS PRN PRN (Reason: Insomnia) Qty: 1 0RF oxycodone 5 mg Tablet 5 mg PO Q4H PRN PRN (Reason: Pain Score 1-10) Qty: 0 0RF Arthritis Pain Compound 3 click topical BID PRN (Reason: Pain) midodrine 5 mg tablet 5 mg G-tube TID nystatin-triamcinolone 100,000-0.1 unit/g-% cream 1 applic topical BID@0600,2200 Protocol: *Topical Application Instructions APPLICATION INSTRUCTIONS: penile foreskin redness simethicone [Infants Simethicone] 40 mg/0.6 mL drops,suspension 80 mg G-tube Q6 aspirin 81 mg tablet,chewable 324 mg G-tube DAILYCM nystatin [Nyamyc] 100,000 unit/gram powder 1 applic topical BID PRN (Reason: redness/moisture) Protocol: *Topical Application Instructions APPLICATION INSTRUCTIONS: groin Nepro Carb Steady 0.08 gram-1.8 kcal/mL liquid 360 ml G-tube 4X/DAY fluticasone propion-salmeterol 232-14 mcg/actuation aerosol powdr breath activated 1 inh inhalation Q12 acetylcysteine [Mucomyst-20] 200 mg/mL (20 %) Solution 6 ml PO DAILY potassium chloride 20 mEq/15 mL Liquid 20 meq PO DAILY ursodiol 250 mg Tablet 250 mg PO TIDCM gabapentin 300 mg capsule 300 mg feeding tube TID sertraline 50 mg Tablet 50 mg PO DAILY Referrals / Follow Up: Anderson Crowley MD [Primary Care Provider] -
[2022-07-06] MEDS: Ursodiol 250 MG Tablet GT ×2 (09:24→12:18)
[2022-07-06] MEDS: Aspirin 81 MG TAB.CHEW 324 MG GT (09:24)
--- NOTE | 2022-07-06 09:55 | TREXTCAR_ITS ---
Diet Diet Order/Speech Therapy: 07/05/22 00:01 NPO [Diet: Nothing Per Oral] Is pt able to select menu?: No Diet Comments: No tube feeds past midnight Routine Orders/Code Status Suppository Type: Dulcolax 10mg Suppository Frequency: Daily PRN Keep PO Greater than or Equal to (%): 94 Routine Lab Work: CBC (within 3 days) and - (CMP within 3 days) Code Status: DNRCC-A Wound(s) peg tube: Wound Type: Surgical Incision ABDOMEN: Wound Type: Surgical Incision Therapies Weight Bearing: Weight bearing as tolerated Physical Therapy: Eval and Treat Occupational Therapy: Eval and Treat Problem/Diagnosis (1) Cholelithiasis: Status: Acute Code(s): K80.20 - Calculus of gallbladder without cholecystitis without obstruction (2) Gallstone pancreatitis: Status: Acute Code(s): K85.10 - Biliary acute pancreatitis without necrosis or infection (3) Cholelithiasis with choledocholithiasis: Status: Acute Code(s): K80.70 - Calculus of gallbladder and bile duct without cholecystitis without obstruction Allergies/Procedures Done in Hospital Allergies mold Allergy (Verified 05/08/22 17:10) NEEDS FOLLOW-UP I don't know house dust Adverse Reaction (Verified 05/08/22 17:10) SNEEZING morphine Adverse Reaction (Verified 05/08/22 17:10) Vomiting poison kayleen extract Adverse Reaction (Verified 05/08/22 17:10) Rash Procedures: - (ERCP) Type of Care/Length of Stay Estimated LOS: Convalescent Care Less Than 30 days Type of Care Needed: Skilled Rehab Potential: Good Prognosis: Good Additional Orders/Day of Discharge Day of Discharge: 07/06/22 Dietary and Speech Recommendations Dietitian Recommendations/Changes: 1. Chronic NPO per MATERIAL FLOW ENGINEER. 2. Concerns tube feeding formula contributing to cholelithiasis as Nepro is very high in fat. Recommend adjusting enteral nutrition to Vital AF 1.2. After ERCP/cholecystectomy, would recommend initiating continuous enteral nutrition via PEG at goal rate of 70mL/hour w/ 150mL H2O flush every 2 hours to provide 2016 calories, 126 g protein, and 3162mL total fluid/day. Would start at 35mL/hour and increase by 15mL/hour every 8-12 hours as tolerated until goal rate is achieved. Will adjust to bolus feeds once tolerance of continuous tube feeds is established. 3. Daily wts. Close monitoring of labs. Follow Up Care Please Follow Up With: Brandon Stevens MD Discharge Plan Admission Admit Date/Time: 07/01/22 20:25 Primary Reason for Your Visit: Acute gallstone pancreatitis/cholestatic hepatitis Attending Provider: Romana Mathis Primary Care Provider: Anderson Crowley Consulting Providers: Bari Geronimo ; Brandon Stevens ; Minna Jenkins Discharge Orders/Prescriptions Prescriptions: New amoxicillin-pot clavulanate [Augmentin] 500-125 mg tablet 1 tab PO BID 5 Days Qty: 10 0RF Rx Instructions: Last dose will be 10/30 pm Continued albuterol sulfate 1 INHALER inhaler 2 puff inhalation Q6H PRN PRN (Reason: Sob &/Or Wheezing) atorvastatin 40 mg Tablet 80 mg feeding tube QHS mirtazapine 15 MG tablet 15 mg feeding tube QHS magnesium hydroxide 400 mg/5 mL Suspension 30 ml PO .PRN X 1 PRN (Reason: Constipation) Qty: 0 0RF bisacodyl 10 mg Suppository 10 mg MS .PRN X 1 PRN (Reason: Constipation) Qty: 0 0RF zolpidem 5 mg Tablet 5 mg PO QHS PRN PRN (Reason: Insomnia) Qty: 1 0RF oxycodone 5 mg Tablet 5 mg PO Q4H PRN PRN (Reason: Pain Score 1-10) Qty: 0 0RF Arthritis Pain Compound 3 click topical BID PRN (Reason: Pain) midodrine 5 mg tablet 5 mg G-tube TID nystatin-triamcinolone 100,000-0.1 unit/g-% cream 1 applic topical BID@0600,2200 Protocol: *Topical Application Instructions APPLICATION INSTRUCTIONS: penile foreskin redness simethicone [Infants Simethicone] 40 mg/0.6 mL drops,suspension 80 mg G-tube Q6 aspirin 81 mg tablet,chewable 324 mg G-tube DAILYCM nystatin [Nyamyc] 100,000 unit/gram powder 1 applic topical BID PRN (Reason: redness/moisture) Protocol: *Topical Application Instructions APPLICATION INSTRUCTIONS: groin Nepro Carb Steady 0.08 gram-1.8 kcal/mL liquid 360 ml G-tube 4X/DAY fluticasone propion-salmeterol 232-14 mcg/actuation aerosol powdr breath activated 1 inh inhalation Q12 acetylcysteine 200 mg/mL (20 %) Solution 6 ml PO DAILY potassium chloride 20 mEq/15 mL Liquid 20 meq PO DAILY ursodiol 250 mg Tablet 250 mg PO TIDCM gabapentin 300 mg capsule 300 mg feeding tube TID sertraline 50 mg Tablet 50 mg PO DAILY Referrals / Follow Up: Anderson Crowley MD [Primary Care Provider] - Friend,DO Trevor [Med Staff - Active Staff] - Within 2 Weeks Brandon Stevens MD [Med Staff - Active Staff] - In 1 Week
--- NOTE | 2022-07-06 10:06 | DS.PCM_ITS ---
Providers Date of Admission: 07/01/22 Date of Discharge: 07/06/22 Primary Care Physician: Dr. Anderson Crowley MD Consultations 07/01/22 20:45 Consult: Gastroenterology Routine Consulting Provider: Deana Gastroenterology Reason for Consult: Cholelithiasis, elevated liver chemistry EMERGENT Consult: No Notified: Yes Date Notified: 07/01/22 Time Notified: 20:34 Method of Notification: Verbal 07/03/22 18:43 Consult: General Surgery Routine Consulting Provider: Brandon Stevens Reason for Consult: gall stones EMERGENT Consult: No Notified: Yes Date Notified: 07/03/22 Time Notified: 18:43 Method of Notification: Verbal Reason For Visit: CHOLELITHIASIS WITH ELEVATED LFTS Diagnosis Discharge Diagnosis (1) Cholelithiasis: Status: Acute Code(s): K80.20 - Calculus of gallbladder without cholecystitis without obstruction (2) Gallstone pancreatitis: Status: Acute Code(s): K85.10 - Biliary acute pancreatitis without necrosis or infection (3) Cholelithiasis with choledocholithiasis: Status: Acute Code(s): K80.70 - Calculus of gallbladder and bile duct without cholecystitis without obstruction (4) Severe protein-calorie malnutrition: Status: Acute Code(s): E43 - Unspecified severe protein-calorie malnutrition Medications at Discharge Home Medications albuterol sulfate 90 mcg/actuation aerosol inhaler 2 puff inhalation Q6H PRN PRN Sob &/Or Wheezing 10/01/19 atorvastatin 40 mg tablet 80 mg feeding tube QHS cholesterol 12/08/21 mirtazapine 15 mg tablet 15 mg feeding tube QHS sleep/appetite 05/28/22 Arthritis Pain Compound 3 click topical BID PRN Pain 06/11/22 aspirin 81 mg chewable tablet 324 mg G-tube DAILYCM blood thinner 06/11/22 bisacodyl 10 mg rectal suppository 10 mg OR .PRN X 1 PRN Constipation #0 ea 06/11/22 fluticasone 232 mcg-salmeterol 14 mcg/actuation breath activated powdr 1 inh inhalation Q12 shortness of breath/wheezing 06/11/22 magnesium hydroxide 400 mg/5 mL oral suspension 30 ml PO .PRN X 1 PRN Constipation #0 mL 06/11/22 midodrine 5 mg tablet 5 mg G-tube TID 06/11/22 nut.tx.imp.renal fxn,lac-reduc 0.08 gram-1.8 kcal/mL oral liquid (Nepro Carb Steady) 360 ml G-tube 4X/DAY supplement 06/11/22 nystatin 100,000 unit/gram topical powder (Nyamyc) 1 applic topical BID PRN redness/moisture 06/11/22 nystatin-triamcinolone 100,000 unit/g-0.1 % topical cream 1 applic topical BID@0600,2200 topical treatment 06/11/22 oxycodone 5 mg tablet 5 mg PO Q4H PRN PRN Pain Score 1-10 #0 tabs 06/11/22 simethicone 40 mg/0.6 mL oral drops,suspension (Infants Simethicone) 80 mg G- tube Q6 digestion 06/11/22 zolpidem 5 mg tablet 5 mg PO QHS PRN PRN Insomnia #1 TAB 06/11/22 acetylcysteine 200 mg/mL (20 %) solution 6 ml PO DAILY 07/01/22 gabapentin 300 mg capsule 300 mg feeding tube TID 07/01/22 potassium chloride 20 mEq/15 mL oral liquid 20 meq PO DAILY 07/01/22 sertraline 50 mg tablet 50 mg PO DAILY 07/01/22 ursodiol 250 mg tablet 250 mg PO TIDCM 07/01/22 amoxicillin 500 mg-potassium clavulanate 125 mg tablet (Augmentin) 1 tab PO BID 5 days #10 tabs 07/06/22 ferrous sulfate 300 mg (60 mg iron)/5 mL oral liquid 300 mg (5 mL) PO DAILY 30 days #150 mL 07/06/22 polyethylene glycol 3350 17 gram/dose oral powder (Miralax) 17 g PO DAILY 30 days #510 grams 07/06/22 Hospital Course Operations None Procedures - (ERCP) Summary of Care Provided Minutes Spent on Discharge: 40 Hospital Course: 81-year-old male with a recent stroke in 2021, currently in TCU for subacute rehab comes in with abnormal liver function test. GI was consulted in the TCU for the abnormal liver enzymes. Gallbladder ultrasound showed gallbladder stone with biliary sludge/mass. He was admitted for GI work-up including ERCP and cholecystectomy. GI and general surgery were consulted. Patient was also started on IV antibiotics - IV Zosyn. Patient underwent ERCP on 07/03/2022 in which there was a benign-appearing esophageal stenosis, dilatation was performed at the cricopharyngeus, a single diffuse biliary stricture from the lower third of the main bile duct, the stricture was secondary to previous stone. The entire main bile duct was mildly dilated secondary to stricture, choledocholithiasis was found. A biliary sphincterectomy was performed. Biliary tree was swept, common bile duct successfully dilated, temporary stent was placed in the ventral pancreatic duct. Patient also underwent laparoscopic cholecystectomy with intraoperative cholangiograms on 07/05/22. Postoperatively, patient continued to do well. He will follow-up with general surgery within a week as well as with GI. He was discharged back to the transitional care unit in a stable condition. Physical Exam Narrative Physical exam: General: Alert, Oriented x3, Cooperative, No apparent distress HEENT: Atraumatic Oral: Moist Mucosa Neck: Supple Lungs: Clear to auscultation Cardiovascular: HS I+II, regular, no murmurs Abdomen: PEG tube in situ, laparoscopic dressing in place, clean, bowel Sounds Present, Soft, Non Tender Extremities: No edema Skin: No rashes, No breakdown Neurological: Grossly intact Psych/Mental Status: Appropriate Medical Records Data Medical Nutrition Assessment Dietitian: Malnutrition Criteria Met Start: 07/02/22 08:06 Freq: Status: Active Protocol: Document 07/03/22 13:10 AG (Rec: 07/03/22 13:10 [id number]) Nutrition Malnutrition Evidence of Malnutrition Exists Yes Malnutrition (severe): Chronic Evidenced By Suboptimal Energy Intake ( Severe),Weight Loss (Severe), Physical Changes (Severe) Clinical Problem Chronic Disease or Condition Related Malnutrition Etiology severe, chronic malnutrition related to inadequate energy intake d/t swallowing difficulties Signs/Symptoms as evidenced by estimated PO intake meeting <75% of estimated energy needs >3 months; unintentional wt loss of ~20.2#/12%; obvious, severe muscle wasting fat loss evident in orbital, clavicle, acromion, and temporal areas per physical exam; BMI 19.1 Status Active Problem Recommendation Dietitian Recommendations/Changes 1. Chronic NPO per [employer]. 2. Concerns tube feeding formula contributing to cholelithiasis as Nepro is very high in fat. Recommend adjusting enteral nutrition to Vital AF 1.2. After ERCP/ cholecystectomy, would recommend initiating continuous enteral nutrition via PEG at goal rate of 70mL/ hour w/ 150mL H2O flush every 2 hours to provide 2016 calories, 126 g protein, and 3162mL total fluid/day. Would start at 35mL/hour and increase by 15mL/hour every 8- 12 hours as tolerated until goal rate is achieved. Will adjust to bolus feeds once tolerance of continuous tube feeds is established. 3. Daily wts. Close monitoring of labs. Weight / BMI Weight Weight: 65.1 kg Body Mass Index (BMI) 19.0 ABG / Lab / Microbiology Data Result Diagrams: 07/06/22 12:00 07/06/22 05:08 Laboratory: Laboratory Results - last 24 hr 07/06/22 05:08: WBC 16.0 H, RBC 2.54 L, Hgb 7.1 L, Hct 23.0 L, MCV 90.6, MCH 28.0, MCHC 30.9 L, RDW Std Deviation 57.7 H, RDW Coeff of Gustabo 17.3 H, Plt Count 637 H, MPV 9.9, Immature Gran % (Auto) 1.900 H, Neut % (Auto) 85.6 H, Lymph % (Auto) 5.3 L, [place] % (Auto) 6.8, Eos % (Auto) 0.2, Baso % (Auto) 0.2, Absolute Neuts (auto) 13.7 H, Absolute Lymphs (auto) 0.84, Nucleated RBC % 0 07/06/22 05:08: Sodium 141, Potassium 4.4, Chloride 111 H, Carbon Dioxide 23.0, Anion Gap 7, BUN 42 H, Creatinine 1.73 H, Estim Creat Clear Calc 31.88, Est GFR (MDRD) Af Amer 49 L, Est GFR (MDRD) Non-Af 41 L, BUN/Creatinine Ratio 24.3 H, Glucose 94, Calcium 8.5, Phosphorus 4.0, Magnesium 2.3, Total Bilirubin 0.20, AST 52 H, ALT 81 H, Alkaline Phosphatase 330 H, Total Protein 7.0, Albumin 1.9 L , Globulin 5.1 H, Albumin/Globulin Ratio 0.4 L Microbiology: Microbiology 07/02/22 07:55 Blood Culture (Wb) - Anticubital Right Blood Culture - Preliminary No growth in 48 hours. 07/02/22 07:47 Blood Culture (Wb) - Left Hand Blood Culture - Preliminary No growth in 48 hours. Radiography Diagnostic Testing: Radiology Impression Cholangiogram 07/05/22 08:25 IMPRESSION: No common bile duct stone. Electronically Signed: David Pittman MD at 10:41 EDT , D/C Instructions Discharge Diet: No restrictions and - (PEG tube feeds) Call your doctor if your incision/area has: Continuous Slow Oozing, Sudden Increased Bleeding, Increased Pain/ Swelling, Increased Redness, Foul Smelling Discharge and Swelling at the incision site Call your doctor if you observe: Fever of 101 or Higher Cleanse incision/area with: Soap & Water Please Follow Up With: Brandon Stevens MD When: 1 week Meaningful Use Info Meaningful Use Diagnoses (Choose all that apply): None applicable Discharge Plan Admission Admit Date/Time: 07/01/22 20:25 Primary Reason for Your Visit: Acute gallstone pancreatitis/cholestatic hepatitis Attending Provider: Romana Mathis Primary Care Provider: Anderson Crowley Consulting Providers: Bari Geronimo ; Brandon Stevens ; Minna Jenkins Instructions Additional Instructions / Restrictions: PEG tube feeds - Vital AF at a rate of 70 mils per hour with a 150 mill water flushes every 2 hours to provide 2016 tonja, 1 to 6 g protein, 3162 total fluid daily. Discharge Orders/Prescriptions Prescriptions: New amoxicillin-pot clavulanate [Augmentin] 500-125 mg tablet 1 tab PO BID 5 Days Qty: 10 0RF Rx Instructions: Last dose will be 10/30 pm ferrous sulfate 300 mg (60 mg iron)/5 mL liquid 300 mg PO DAILY 30 Days Qty: 150 0RF polyethylene glycol 3350 [Miralax] 17 gram/dose powder 17 g PO DAILY 30 Days Qty: 510 0RF Continued albuterol sulfate 1 INHALER inhaler 2 puff inhalation Q6H PRN PRN (Reason: Sob &/Or Wheezing) atorvastatin 40 mg Tablet 80 mg feeding tube QHS mirtazapine 15 MG tablet 15 mg feeding tube QHS magnesium hydroxide 400 mg/5 mL Suspension 30 ml PO .PRN X 1 PRN (Reason: Constipation) Qty: 0 0RF bisacodyl 10 mg Suppository 10 mg OR .PRN X 1 PRN (Reason: Constipation) Qty: 0 0RF zolpidem 5 mg Tablet 5 mg PO QHS PRN PRN (Reason: Insomnia) Qty: 1 0RF oxycodone 5 mg Tablet 5 mg PO Q4H PRN PRN (Reason: Pain Score 1-10) Qty: 0 0RF Arthritis Pain Compound 3 click topical BID PRN (Reason: Pain) midodrine 5 mg tablet 5 mg G-tube TID nystatin-triamcinolone 100,000-0.1 unit/g-% cream 1 applic topical BID@0600,2200 Protocol: *Topical Application Instructions APPLICATION INSTRUCTIONS: penile foreskin redness simethicone [Infants Simethicone] 40 mg/0.6 mL drops,suspension 80 mg G-tube Q6 aspirin 81 mg tablet,chewable 324 mg G-tube DAILYCM nystatin [Nyamyc] 100,000 unit/gram powder 1 applic topical BID PRN (Reason: redness/moisture) Protocol: *Topical Application Instructions APPLICATION INSTRUCTIONS: groin Nepro Carb Steady 0.08 gram-1.8 kcal/mL liquid 360 ml G-tube 4X/DAY fluticasone propion-salmeterol 232-14 mcg/actuation aerosol powdr breath activated 1 inh inhalation Q12 acetylcysteine 200 mg/mL (20 %) Solution 6 ml PO DAILY potassium chloride 20 mEq/15 mL Liquid 20 meq PO DAILY ursodiol 250 mg Tablet 250 mg PO TIDCM gabapentin 300 mg capsule 300 mg feeding tube TID sertraline 50 mg Tablet 50 mg PO DAILY Referrals / Follow Up: Brandon Stevens MD [Med Staff - Active Staff] - In 1 Week Trevor Ruggiero DO [Med Staff - Active Staff] - Within 2 Weeks Anderson Crowley MD [Primary Care Provider] - Disposition Discharge Orders: Discharge Patient (Routine); Ordered 07/06/22 Ordered By: Dr. Romana Mathis Charges/Coding Visit Charges Inpatient E&M: 20028 Disch Hosp
--- NOTE | 2022-07-06 10:18 | PCM.PN.SRG ---
Subjective Subjective Patient seen and examined during AM rounds. He reported an uneventful overnight course. He reported minimal discomfort from his abdominal wall. Objective Data Objective Data Vital Signs: Vital Signs Temp Pulse Resp BP Pulse Ox O2 Del Method 98.0 F 86 16 128/82 H 95 Room Air 07/06/22 06:31 07/06/22 07:10 07/06/22 07:10 07/06/22 06:31 07/06/22 08:00 07/06/22 07:10 Oxygen Delivery Method Room Air Weight: 143 lb 8.335 oz Body Mass Index (BMI) 19.0 Intake & Output: Intake and Output for Last 24 Hours 07/04/22 07/05/22 07/06/22 23:59 23:59 23:59 Intake Total 1470 / 1470 2470 / 2470 50 / 50 Output Total 750 / 750 Balance 1470 / 1470 1720 / 1720 50 / 50 Medical Nutrition Assessment Dietitian: Malnutrition Criteria Met Start: 07/02/22 08:06 Freq: Status: Active Protocol: Document 07/03/22 13:10 AG (Rec: 07/03/22 13:10 [id number]) Nutrition Malnutrition Evidence of Malnutrition Exists Yes Malnutrition (severe): Chronic Evidenced By Suboptimal Energy Intake ( Severe),Weight Loss (Severe), Physical Changes (Severe) Clinical Problem Chronic Disease or Condition Related Malnutrition Etiology severe, chronic malnutrition related to inadequate energy intake d/t swallowing difficulties Signs/Symptoms as evidenced by estimated PO intake meeting <75% of estimated energy needs >3 months; unintentional wt loss of ~20.2#/12%; obvious, severe muscle wasting fat loss evident in orbital, clavicle, acromion, and temporal areas per physical exam; BMI 19.1 Status Active Problem Recommendation Dietitian Recommendations/Changes 1. Chronic NPO per [employer]. 2. Concerns tube feeding formula contributing to cholelithiasis as Nepro is very high in fat. Recommend adjusting enteral nutrition to Vital AF 1.2. After ERCP/ cholecystectomy, would recommend initiating continuous enteral nutrition via PEG at goal rate of 70mL/ hour w/ 150mL H2O flush every 2 hours to provide 2016 calories, 126 g protein, and 3162mL total fluid/day. Would start at 35mL/hour and increase by 15mL/hour every 8- 12 hours as tolerated until goal rate is achieved. Will adjust to bolus feeds once tolerance of continuous tube feeds is established. 3. Daily wts. Close monitoring of labs. Lab / Micro Data Result Diagrams: 07/06/22 12:00 07/06/22 05:08 Labs: Laboratory Results - last 24 hr 07/06/22 05:08: WBC 16.0 H, RBC 2.54 L, Hgb 7.1 L, Hct 23.0 L, MCV 90.6, MCH 28.0, MCHC 30.9 L, RDW Std Deviation 57.7 H, RDW Coeff of Gustabo 17.3 H, Plt Count 637 H, MPV 9.9, Immature Gran % (Auto) 1.900 H, Neut % (Auto) 85.6 H, Lymph % (Auto) 5.3 L, [place] % (Auto) 6.8, Eos % (Auto) 0.2, Baso % (Auto) 0.2, Absolute Neuts (auto) 13.7 H, Absolute Lymphs (auto) 0.84, Nucleated RBC % 0 07/06/22 05:08: Sodium 141, Potassium 4.4, Chloride 111 H, Carbon Dioxide 23.0, Anion Gap 7, BUN 42 H, Creatinine 1.73 H, Estim Creat Clear Calc 31.88, Est GFR (MDRD) Af Amer 49 L, Est GFR (MDRD) Non-Af 41 L, BUN/Creatinine Ratio 24.3 H, Glucose 94, Calcium 8.5, Phosphorus 4.0, Magnesium 2.3, Total Bilirubin 0.20, AST 52 H, ALT 81 H, Alkaline Phosphatase 330 H, Total Protein 7.0, Albumin 1.9 L, Globulin 5.1 H, Albumin/Globulin Ratio 0.4 L Micro: Microbiology 07/02/22 07:55 Blood Culture (Wb) - Anticubital Right Blood Culture - Preliminary No growth in 48 hours. 07/02/22 07:47 Blood Culture (Wb) - Left Hand Blood Culture - Preliminary No growth in 48 hours. Radiography Diagnostic Testing: Radiology Impression Cholangiogram 07/05/22 08:25 IMPRESSION: No common bile duct stone. Electronically Signed: David Pittman MD at 10:41 EDT , Physical Exam Const oriented x3 and no apparent distress Resp normal respiratory effort GI GI Narrative: Nondistended, operative dressings remain clean and intact without drainage. Patient's abdomen is soft and nontender with palpation. Assessment & Plan Assessment/Plan (1) S/P cholecystectomy: PLAN: Patient is postoperative day 1 from laparoscopic cholecystectomy with intraoperative cholangiogram. Case proceeded in uncomplicated fashion and patient is doing well with his recovery. He has minimal abdominal discomfort. We did not find any filling defects with our cholangiogram. He had exhibits a slight leukocytosis today with his laboratories, but I suspect this is primarily reactive from his recent procedures given his reassuring exam. Therefore, from a surgical standpoint patient is fit for transfer back to the transitional care unit.
[2022-07-06 12:10] LABS: Hematocrit 23.3 % (40-54); Hemoglobin 7.1 g/dL (13.0-16.5)
--- NOTE | 2022-07-06 12:37 | CASEMGMT ---
Social Work BARTOLO notified by pt that pt ready for discharge. BARTOLO faxed discharge orders to TCU. Ordered Covid test from pt nurse, Ginger. Ginger informed pt getting Iv iron for the next 2 hours but Covid test will be completed after. BARTOLO notified Dory, staffing coordinator at TCU. Disposition: TCU, skilled level of care. RUBIO Reid
--- NOTE | 2022-07-06 14:35 | NURSING ---
pt to [facility] [id number] via bed after report called to [facility]
== END 2022-07-06 14:39 | DRG 417 ==
LOC: ED 17:13 → MS3 18:50
PROVIDERS: Anesthesiology; Internal Medicine; Internal Medicine Gastroenterology; Surgery; Admitting Provider Internal Medicine; Emergency Provider Emergency Medicine; PCP Family Medicine; Visit Provider Internal Medicine
PROC: 0FC98ZZ Extirpation of Matter from Common Bile Duct, Via Natural or Artificial Opening Endoscopic (ICD-10-PCS; CPT 43260; principal; 2022-07-03 15:40)
PROC: (CPT 47610; principal; 2022-07-05 08:30)
DX: K85.10 Biliary acute pancreatitis without necrosis or infection (principal); E43 Unspecified severe protein-calorie malnutrition; K25.4 Chronic or unspecified gastric ulcer with hemorrhage; K80.62 Calculus of gallbladder and bile duct with acute cholecystitis without obstruction; I45.2 Bifascicular block; Z68.1 Body mass index [BMI] 19.9 or less, adult; K75.89 Other specified inflammatory liver diseases; J44.9 Chronic obstructive pulmonary disease, unspecified; N18.32 Chronic kidney disease, stage 3b; Z93.1 Gastrostomy status; D63.8 Anemia in other chronic diseases classified elsewhere; I12.9 Hypertensive chronic kidney disease with stage 1 through stage 4 chronic kidney disease, or unspecified chronic kidney disease; K21.9 Gastro-esophageal reflux disease without esophagitis; Z66 Do not resuscitate; Z87.891 Personal history of nicotine dependence; Z92.3 Personal history of irradiation; Z86.73 Personal history of transient ischemic attack (TIA), and cerebral infarction without residual deficits; Z85.819 Personal history of malignant neoplasm of unspecified site of lip, oral cavity, and pharynx; Z79.899 Other long term (current) drug therapy; Z79.82 Long term (current) use of aspirin; N40.1 Benign prostatic hyperplasia with lower urinary tract symptoms; R39.11 Hesitancy of micturition; R35.1 Nocturia
CPT/HCPCS: 36415; 71045; 74300; 74330; 76000; 76705; 80053; 81001; 83690; 83735; 84100; 85014; 85018; 85025; 85610; 85730; 87040; 87426; 88304; 93005; 94640; 97110; 97162; 97166; 97530; 97535; 97802; 97803; 99251; 99285; J7030; J7050; J7120; A4216; G0463; J2405; J2916

== ENCOUNTER 2022-07-06 14:55 | Inpatient (IN) | payer MEDICARE, OTHER, SELFPAY ==
[2022-07-06 15:07] VITALS: BP 134/74; PULSE 83; RESP 18; RESP 20; TEMP 36.1; O2SAT 98; BMI 19.3
--- NOTE | 2022-07-06 18:45 | RAD_ITS ---
INDICATION: Distended abdomen. EXAMINATION/TECHNIQUE: X-RAY - XR Abdomen 1 View COMPARISON: 06/19/2022 FINDINGS: Tubes and lines: 1. Spinal stimulator again noted. Postoperative changes involving the thoracolumbar junction with pedicle screw fixation. 2. LEFT ureteral stent is again noted, multiple small calcifications are in the region of the LEFT ureteral stent in the low pelvis likely adjacent to the stent. 3. PEG tube in place. 4. There is a small caliber stent in the RIGHT upper quadrant which may represent a biliary stent. Position however is unusual and may be dislodged within the bowel. BOWEL GAS PATTERN: Multiple gas filled distended segments of bowel including stomach and sections of the colon in the RIGHT upper abdomen. No small bowel obstruction. FREE AIR: Not assessed on a single supine view. ORGANOMEGALY: Not seen. CALCIFICATIONS: Calcifications are present in the RIGHT hemipelvis likely along the LEFT ureteral stent. LOWER CHEST: No acute pathology. BONES AND SOFT TISSUES: No acute pathology. RAD/Abdomen Single View IMPRESSION: 1. Life-support including spinal stimulator, LEFT ureteral stent which appears to be adjacent to several small LEFT lower ureteral stones. 2. PEG tube in place. 3. Gas-filled distended sections of bowel including the RIGHT hemicolon and the stomach. No small bowel obstruction. 4. Small caliber tubing/stent in the RIGHT upper quadrant appears to represent a displaced biliary stent, and may be located within the bowel. Electronically Signed: David Melgar MD at 23:58 EDT ,
[2022-07-06] MEDS: Fluticasone/Salmeterol 232-14 Inhaler 1 PUFF INHALATION (18:57)
[2022-07-06] MEDS: Menthol/Lanolin/Calamine/Znox 113 GM Tube 1 APPLIC TOPICAL (18:57)
--- NOTE | 2022-07-06 20:18 | HP.PCM_ITS ---
HPI - General General Date of Admission: 07/06/22 Date of Service: 07/06/22 Chief Complaint: Here for rehab. HPI Narrative 07/01/2022 MADDI JAMESON, is a 81 Male who presents to [facility] [place] Emergency Department with gallstone pancreatitis. Dr. Ruggiero consulted for elevated liver enzymes, elevated amylase, elevated lipase. Concern for gallstone pancreatitis, MRCP unable due to spinal cord stimulator, needs ERCP. 07/01/2022 Admit to Hospital. Plan ERCP, Lap pari for gallstone pancreatitis. 07/02/2022 Dull abdominal pain, pain worse, tubefeed on hold. Zosyn, IV fluids for cholelithiasis, gallstone pancreatitis. 07/02/2022 Dr. Ruggiero planned ERCP 07/03/2022. WBC elevated, suspect infection of hepatobiliary tree, on Zosyn. 07/03/2022 Dr. Ruggiero ERCP, sphincterotomy, biliary stent. 07/04/2022 Feeling better. 07/05/2022 Belly pain persists. 07/05/2022 Dr. Stevens performed laparoscopic cholecystectomy. 07/06/2022 Admit to TCU with debility, here for rehabilitation, stregthening, prior to discharge home alone. [facility] Medical History Alcohol abuse Alcohol use Arthritis Asymmetric septal hypertrophy Back pain Benign neoplasm of colon Bifascicular bundle branch block BPH (benign prostatic hypertrophy) Cancer Cardiology follow-up encounter Chest pain Chronic cough Chronic pain COPD (chronic obstructive pulmonary disease) Depression Difficulty chewing Dyspnea Former smoker Former smoker Gastric reflux GERD (gastroesophageal reflux disease) Grade I diastolic dysfunction Hiatal hernia History of echocardiogram History of hypertension History of malignant neoplasm of larynx History of pain when walking History of steroid therapy History of stress test Hoarseness Hypertension Hypertension Injury of head and neck Loss of consciousness Lumbar spinal stenosis Microscopic hematuria Nephrolithiasis Neuropathic pain Osteoarthritis of left knee Pharyngeal cancer Restenosis of arterial stent Rhinitis Shortness of breath on exertion Silent aspiration TIA (transient ischemic attack) Wears dentures Wears glasses Home Medications albuterol sulfate 90 mcg/actuation aerosol inhaler 2 puff inhalation Q6H PRN PRN Sob &/Or Wheezing 10/01/19 [History Last Taken Unknown] atorvastatin 40 mg tablet 80 mg feeding tube QHS cholesterol 12/08/21 [History Last Taken 06/30/22 20:14] mirtazapine 15 mg tablet 15 mg feeding tube QHS sleep/appetite 05/28/22 [History Last Taken 06/30/22 20:14] Arthritis Pain Compound 3 click topical BID PRN Pain 06/11/22 [History Last T aken Unknown] aspirin 81 mg chewable tablet 324 mg G-tube DAILYCM blood thinner 06/11/22 [History Last Taken 07/01/22 08:17] bisacodyl 10 mg rectal suppository 10 mg AL .PRN X 1 PRN Constipation #0 ea 06/11/22 [Rx Last Taken Unknown] fluticasone 232 mcg-salmeterol 14 mcg/actuation breath activated powdr 1 inh inhalation Q12 shortness of breath/wheezing 06/11/22 [History Last Taken 07/01/22 06:16] magnesium hydroxide 400 mg/5 mL oral suspension 30 ml PO .PRN X 1 PRN Constipation #0 mL 06/11/22 [Rx Last Taken Unknown] midodrine 5 mg tablet 5 mg G-tube TID low BP 06/11/22 [History Last Taken 06/13 06/04 06:15] nut.tx.imp.renal fxn,lac-reduc 0.08 gram-1.8 kcal/mL oral liquid (Nepro Carb Steady) 360 ml G-tube 4X/DAY supplement 06/11/22 [History Last Taken 07/01/22 06:16] nystatin 100,000 unit/gram topical powder (Nyamyc) 1 applic topical BID PRN redness/moisture 06/11/22 [History Last Taken Unknown] nystatin-triamcinolone 100,000 unit/g-0.1 % topical cream 1 applic topical BID@0600,2200 topical treatment 06/11/22 [History Last Taken Unknown] oxycodone 5 mg tablet 5 mg PO Q4H PRN PRN Pain Score 1-10 #0 tabs 06/11/22 [Rx Last Taken Unknown] simethicone 40 mg/0.6 mL oral drops,suspension (Infants Simethicone) 80 mg G- tube Q6 digestion 06/11/22 [History Last Taken 07/01/22 06:16] zolpidem 5 mg tablet 5 mg PO QHS PRN PRN Insomnia #1 TAB 06/11/22 [Rx Last Taken Unknown] acetylcysteine 200 mg/mL (20 %) solution 6 ml PO DAILY Liver 07/01/22 [History Last Taken 07/01/22 06:15] gabapentin 300 mg capsule 300 mg feeding tube TID nerve pain 07/01/22 [History Last Taken 07/01/22 06:15] potassium chloride 20 mEq/15 mL oral liquid 20 meq PO DAILY hypokalemia 07/01/22 [History Last Taken 07/01/22 08:17] sertraline 50 mg tablet 50 mg PO DAILY depression 07/01/22 [History Last Taken 07/01/22 06:15] ursodiol 250 mg tablet 250 mg PO TIDCM high cholesterol 07/01/22 [History Last Taken 06/30/22 18:28] amoxicillin 500 mg-potassium clavulanate 125 mg tablet (Augmentin) 1 tab PO BID infection 07/06/22 [History Last Taken Unknown] ferrous sulfate 300 mg (60 mg iron)/5 mL oral liquid 300 mg PO DAILY Low hgb 07/06/22 [History Last Taken Unknown] polyethylene glycol 3350 17 gram/dose oral powder (Miralax) 17 g PO DAILY constipation 07/06/22 [History Last Taken Unknown] Allergy/AdvReac Type Severity Reaction Status Date / Time mold Allergy NEEDS Verified 05/08/22 17:10 FOLLOW-UP house dust AdvReac SNEEZING Verified 05/08/22 17:10 morphine AdvReac Vomiting Verified 05/08/22 17:10 poison kayleen extract AdvReac Rash Verified 05/08/22 17:10 Family History Mother CAD (coronary artery disease) Brother COPD (chronic obstructive pulmonary disease) Surgical History H/O hernia repair History of cardiac catheterization History of esophageal dilatation History of heart artery stent History of laminectomy History of tonsillectomy Hx of colonoscopy Internal carotid artery stent present S/P total knee arthroplasty Spinal cord stimulator status Status post insertion of percutaneous endoscopic gastrostomy (PEG) tube Status post total left knee replacement Ureteral stent present Social History household members: none housing: house number of children: 0 current occupational status: retired Smoking Status: Former smoker Smokeless tobacco user: chewing tobacco and other how long ago did patient quit smokin alcohol intake: former substance use type: does not use ROS Constitutional Constitutional: Denies chills, fever(s) or weight gain ENT HEENT: Denies headache(s), nasal congestion or nasal discharge Cardiovascular Cardiovascular: Denies chest pain or palpitations Respiratory/Chest Respiratory/Chest: Denies cough, excessive phlegm production or shortness of breath with exertion Gastrointestinal Gastrointestinal: Denies abdominal pain, nausea or vomiting Genitourinary Genitourinary: Denies dysuria Musculoskeletal Musculoskeletal: Denies joint pain or joint swelling Integumentary Integumentary: Denies rash or wounds Neurologic Neurologic: Denies focal weakness, numbness or tingling Psychiatric Psychiatric: Denies anxiety, auditory hallucinations, depression, homicidal ideation or suicidal ideation Vital Signs Vital Signs Vital Signs: 07/06/22 15:07 07/06/22 15:07 Temperature 97.0 F L Temperature Source Temporal Pulse Rate 83 83 Pulse Rhythm Irregular Pulse Strength Normal (2+) Respiratory Rate 20 H 18 Respiratory Effort Normal Respiratory Depth Normal Respiratory Pattern Normal Blood Pressure 134/74 H Blood Pressure Mean 94 Blood Pressure Source Monitor Blood Pressure Position Sitting Blood Pressure Location Left Arm Pulse Ox 98 98 Oxygen Delivery Method Room Air Room Air Weight Weight: 64.58 kg Body Mass Index (BMI) 19.3 Physical Exam Const alert General Appearance: cooperative HEENT normocephalic Eyes PERRL and EOMs intact bilaterally Neck supple, no JVD and no carotid bruits Resp normal respiratory effort, normal air movement and clear to auscultation bilaterally Cardio regular rate and regular rhythm GI normal to inspection, nondistended, normoactive bowel sounds, non-tender and non-distended GI Narrative: G-tube present. Extremity normal capillary refill General Extremity: Negative for edema Skin no rashes or lesions noted General Skin Exam: no breakdown Psych affect normal Appearance: appropriate Assessment & Plan Assessment/Plan (1) Debility: (2) Cholelithiasis with choledocholithiasis: (3) Gallstone pancreatitis: (4) Cholelithiasis: (5) Cholestatic hepatitis: (6) Acute cerebrovascular accident (CVA) due to ischemia: (7) Chronic obstructive pulmonary disease: (8) Hyperlipidemia: (9) Neuropathic pain: (10) GERD (gastroesophageal reflux disease): (11) Orthostatic hypotension: (12) Insomnia: (13) Depression: PLAN: Plan 81 year old male with below past medical history hospitalized for gallstone pancreatitis, underwent ERCP, sphincterotomy, followed by laparoscopic cholecystectomy, admitted to TCU with debility, here for rehabilitation, strengthening, prior to discharge home alone. * Debility - PT/OT. * Pain - Arthritis pain compound 3 clicks topical bid, Oxycodone 5mg q4h prn. * Bowel - Miralax 17gm daily, Dulcolax 10mg pr daily prn, MOM 30ml x 1 prn. * Adult immunization - Administer pneumonia vaccine, covid19 vaccine, flu vaccine as appropriate. * DVT prophylaxis - Hold. * Cholestatic hepatitis - Mucomyst 1200mg daily, Ursodiol 250mg tid. * COPD - Fluticasone/salmeterol 1 puff q12h, albuterol 2 puffs q6h prn. * Gallstone pancreatitis - Augmentin 500mg bid thru 07/12/2022. * Stroke - Aspirin 324mg daily. * Hyperlipidemia - Atorvastatin 80mg qhs. * Iron deficiency anemia - Ferrous sulfate 300mg daiy. * Neuropathic pain - Gabapentin 300mg tid. * Skin irritation - Calmoseptine topical bid. * Orthostatic hypotension - Midodrine 5mg gt tid. * Appetite loss - Mirtazapine 15mg qhs. * Nutrition - Nepro 360ml 4x/day. * Tinea Corporis - Nystatin powder topical bid. * Hypokalemia - KCL 20meq daily. 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 * Gas - Simethicone 80mg q6h. * Insomnia - Zolpidem 5mg qhs prn, stable chronic senior care use, GDR not recommended.
[2022-07-06] MEDS: Simethicone 40MG/0.6ML Bottle 80 MG GT ×2 (21:33→23:18)
[2022-07-06] MEDS: oxyCODONE 5 MG Tablet GT (21:44)
[2022-07-06] MEDS: Midodrine HCl 5 MG Tablet GT (21:45)
[2022-07-06] MEDS: Gabapentin 300 MG Capsule GT (21:45)
[2022-07-06] MEDS: Mirtazapine 15 MG Tablet GT (21:45)
[2022-07-06] MEDS: Amox/Clavulanate 500 MG Tablet GT (21:46)
[2022-07-06] MEDS: Atorvastatin Calcium 80 MG Tablet GT (21:46)
[2022-07-07 05:42] LABS: Absolute Lymphocyte Count 1.01 X10^3/uL (0.83-4.51); Absolute Neutrophil Count 9.1 X10^3/uL (2.0-7.7); Basophil# 0.08 X10^3/uL; Basophil% 0.7 % (0-1); Eosinophil# 0.41 X10^3/uL; Eosinophils% 3.5 % (0-5); Hematocrit 25.4 % (40-54); Hemoglobin 7.6 g/dL (13.0-16.5); Lymphocyte # 1.01 X10^3/ul (0.83-4.51); Lymphocyte % 8.6 % (19-41); Mean Corp Hgb Conc 29.9 g/dL (32-36); Mean Corpuscular Hgb 27.4 pg (27.0-32.0); Mean Corpuscular Volume 91.7 fL (80-94); Mean Platelet Vol. 9.3 fl (6.2-12.0); Monocyte# 0.97 X10^3/uL; Monocyte% 8.2 % (0-10); NRBC Flagged by Analyzer 0 % (0-5); Neutrophil # 9.08 X10^3/uL (2.7-7.7); Platelet Count 605 K/mm3 (150-450); RBC Distribution Width CV 17.2 % (11.6-14.6); RBC Distribution Width SD 58.3 fl (35.1-43.9); Red Blood Count 2.77 M/mm3 (4.6-6.2); White Blood Count 11.8 K/mm3 (4.4-11.0)
[2022-07-07 06:14] LABS: Anion Gap 5 (5-15); BUN 37 mg/dL (7-18); BUN/Creat Ratio 24.3 RATIO (10-20); Calcium,Total 8.9 mg/dL (8.5-10.1); Chloride 114 mmol/L (98-107); Creatinine, Serum 1.52 mg/dL (0.70-1.30); EST Glomerular Filtration Rate 47 mL/min (>60); Est Glom Filt Rate - Afr Amer 57 mL/min (>60); Glucose 85 mg/dL (74-106); Potassium 4.4 mmol/L (3.5-5.1); Sodium Level 143 mmol/L (136-145)
[2022-07-07] MEDS: Fluticasone/Salmeterol 232-14 Inhaler 1 PUFF INHALATION ×2 (06:15→17:37)
[2022-07-07] MEDS: Gabapentin 300 MG Capsule GT ×3 (06:20→22:02)
[2022-07-07] MEDS: Midodrine HCl 5 MG Tablet GT ×3 (06:21→22:09)
[2022-07-07] MEDS: Sertraline 50 MG Tablet GT (06:21)
[2022-07-07] MEDS: Amox/Clavulanate 500 MG Tablet GT ×2 (06:21→17:36)
[2022-07-07] MEDS: Simethicone 40MG/0.6ML Bottle 80 MG GT ×4 (06:22→20:43)
[2022-07-07] MEDS: Menthol/Lanolin/Calamine/Znox 113 GM Tube 1 APPLIC TOPICAL ×2 (06:22→17:37)
[2022-07-07] MEDS: Nepro Liquid 120 ML LIQUID 360 ML PO ×2 (06:23→13:11)
[2022-07-07] MEDS: Acetylcysteine (Mucomyst Oral) 20% SOLN 1200 MG GT (06:23)
[2022-07-07] MEDS: Aspirin 81 MG TAB.CHEW 324 MG GT (08:54)
[2022-07-07] MEDS: Potassium Chloride Oral Soln 20 MEQ/15 ML UDC GT (08:54)
[2022-07-07] MEDS: Ferrous Sulfate 300 MG/5 ML UDC GT (08:54)
[2022-07-07] MEDS: Ursodiol 250 MG Tablet GT ×3 (09:08→17:36)
[2022-07-07 13:08] VITALS: BP 125/73; PULSE 84; RESP 18; TEMP 37; O2SAT 94
--- NOTE | 2022-07-07 14:53 | CASEMGMT ---
Social Work Pt readmitted to TCU. No changes to previous assessment, code status or MOLST. Pt readmitted on day of Medicare benefit. Pts goal remains to DC home alone. SW to continue to follow. JACK ValladaresW
[2022-07-07] MEDS: Vital AF 1.2 Cal Liq 1,500 ML 330 ML GT (17:36)
--- NOTE | 2022-07-07 19:13 | NURSING ---
no residuals at lunch, 5cc at supper.
[2022-07-07 20:51] VITALS: PULSE 88; RESP 16; O2SAT 93
[2022-07-07] MEDS: Atorvastatin Calcium 80 MG Tablet GT (22:03)
[2022-07-07] MEDS: Mirtazapine 15 MG Tablet GT (22:03)
[2022-07-07 22:18] VITALS: BP 153/83; PULSE 84
[2022-07-08] MEDS: Polyethylene Glycol 3350 17 GM PACKET GT (05:38)
[2022-07-08] MEDS: Sertraline 50 MG Tablet GT (05:38)
[2022-07-08] MEDS: Ursodiol 250 MG Tablet GT ×3 (05:38→18:08)
[2022-07-08] MEDS: Midodrine HCl 5 MG Tablet GT ×3 (05:38→21:22)
[2022-07-08] MEDS: Gabapentin 300 MG Capsule GT ×3 (05:38→21:19)
[2022-07-08] MEDS: Amox/Clavulanate 500 MG Tablet GT ×2 (05:38→18:08)
[2022-07-08] MEDS: Fluticasone/Salmeterol 232-14 Inhaler 1 PUFF INHALATION ×2 (05:39→18:08)
[2022-07-08] MEDS: Simethicone 40MG/0.6ML Bottle 80 MG GT ×3 (05:39→18:20)
[2022-07-08] MEDS: Vital AF 1.2 Cal Liq 1,500 ML 330 ML GT ×4 (05:40→18:09)
[2022-07-08] MEDS: Acetylcysteine (Mucomyst Oral) 20% SOLN 1200 MG GT (05:42)
--- NOTE | 2022-07-08 10:50 | NURSING ---
residual checked prior to tube feed and noted to be 90cc
[2022-07-08] MEDS: Aspirin 81 MG TAB.CHEW 324 MG GT (11:20)
[2022-07-08] MEDS: Ferrous Sulfate 300 MG/5 ML UDC GT (11:20)
[2022-07-08] MEDS: Potassium Chloride Oral Soln 20 MEQ/15 ML UDC GT (11:20)
--- NOTE | 2022-07-08 13:18 | NURSING ---
Signal Inspector Note; Activity Asst Complete
[2022-07-08 14:17] VITALS: BP 113/68; PULSE 74; RESP 16; TEMP 36.5; O2SAT 94
--- NOTE | 2022-07-08 14:18 | PHA.CONS_ITS ---
TCU RX Drug Regimen Review Subjective: TCU Admission. 81 YOM presented to ER with gallstone pancreatitis. Admitted to the hospital for gallstone pancreatitis, underwent ERCP, sphincterotomy, followed by laparoscopic cholecystectomy. Admitted to TCU with debility for strengthening and rehabilitation. Objective: Allergies mold Allergy (Verified 05/08/22 17:10) NEEDS FOLLOW-UP I don't know house dust Adverse Reaction (Verified 05/08/22 17:10) SNEEZING morphine Adverse Reaction (Verified 05/08/22 17:10) Vomiting poison kayleen extract Adverse Reaction (Verified 05/08/22 17:10) Rash Current Medications Generic Name Dose Route Start Last Admin Trade Name Freq PRN Reason Stop Dose Admin Acetylcysteine 1,200 mg 07/07/22 06:00 07/08/22 05:42 Acetylcysteine (Mucomyst Oral) 20% Soln GT 1,200 mg DAILY KEENAN Administration Albuterol Sulfate 2 puff 07/06/22 16:01 Albuterol Ih (6.7 Gm) 1 Puff Inhaler INHALATION Q6H PRN PRN Sob &/Or Wheezing Amoxicillin/Clavulanate Potassium 500 mg 07/07/22 06:00 07/08/22 05:38 Amox/Clavulanate 500 Mg Tablet GT 07/12/22 22:00 500 mg BID KEENAN Administration Aspirin 324 mg 07/08/22 12:00 07/08/22 11:20 Aspirin 81 Mg Tab.Chew GT 324 mg DAILY@1200 KEENAN Administration Atorvastatin Calcium 80 mg 07/06/22 22:00 07/07/22 22:03 Atorvastatin Calcium 80 Mg Tablet GT 80 mg QHS KEENAN Administration Bisacodyl 10 mg 07/06/22 15:48 Bisacodyl 10 Mg Suppository RC .PRN X 1 PRN Constipation Calamine/Phenol 1 applic 07/06/22 18:00 07/08/22 05:40 Menthol/Lanolin/Calamine/Znox 113 Gm Tube TOPICAL Not Given BID [facility] Protocol Compound Med 3 click 07/06/22 16:07 Arthritis Pain Compound 60 Click Tube TOPICAL BID PRN Pain 1-10 Ferrous Sulfate 300 mg 07/08/22 12:00 07/08/22 11:20 Ferrous Sulfate 300 Mg/5 Ml Udc GT 300 mg DAILY@1200 KEENAN Administration Gabapentin 300 mg 07/06/22 22:00 07/08/22 05:38 Gabapentin 300 Mg Capsule GT 300 mg TID KEENAN Administration Magnesium Hydroxide 30 ml 07/06/22 20:50 Magnesium Hydroxide 30 Ml Udc GT .PRN X 1 PRN Constipation Midodrine 5 mg 07/06/22 22:00 07/08/22 05:38 Midodrine Hcl 5 Mg Tablet GT 5 mg TID KEENAN Administration Mirtazapine 15 mg 07/06/22 22:00 07/07/22 22:03 Mirtazapine 15 Mg Tablet GT 15 mg QHS KEENAN Administration Nutritional Form-Impair Digest-Fibe 330 ml 07/07/22 18:00 07/08/22 11:19 Vital Af 1.2 Papito Liq 1,500 Ml GT 330 ml 5X/DAY KEENAN Administration Nystatin 1 applic 07/06/22 15:48 Nystatin Powder 15gm Bottle TOPICAL BID PRN redness/moisture Protocol Nystatin/Triamcinolone Acetonide 1 applic 07/06/22 22:00 07/08/22 05:40 Nystatin/Triamcin Cream Tube TOPICAL Not Given BID@0600,2200 [facility] Protocol Oxycodone HCl 5 mg 07/06/22 15:48 07/06/22 21:44 Oxycodone 5 Mg Tablet GT 5 mg Q4H PRN PRN Administration Pain Score 1-10 Polyethylene Glycol 17 gm 07/07/22 06:00 07/08/22 05:38 Polyethylene Glycol 3350 17 Gm Packet GT 17 gm DAILY KEENAN Administration Potassium Chloride 20 meq 07/08/22 12:00 07/08/22 11:20 Potassium Chloride Oral Soln 20 Meq/15 Ml Udc GT 20 meq DAILY@1200 KEENAN Administration Fluticasone/Salmeterol 1 puff 07/06/22 18:00 07/08/22 05:39 Fluticasone/Salmeterol 232-14 Inhaler INHALATION 1 puff Q12 KEENAN Administration Sertraline HCl 50 mg 07/07/22 06:00 07/08/22 05:38 Sertraline 50 Mg Tablet GT 50 mg DAILY KEENAN Administration Simethicone 80 mg 07/06/22 18:00 07/08/22 11:25 Simethicone 40mg/0.6ml Bottle GT 80 mg Q6 KEENAN Administration Sodium Chloride 10 - 40 ml 07/06/22 15:33 0.9% Saline Lock 10 Ml Syringe IV UD PRN SALINE FLUSH Ursodiol 250 mg 07/07/22 12:00 07/08/22 11:21 Ursodiol 250 Mg Tablet GT 250 mg 0600,1200,1700 KEENAN Administration Zolpidem Tartrate 5 mg 07/06/22 20:55 Zolpidem Tartrate 5 Mg Tablet GT QHS PRN PRN Insomnia Problem List (Last Reviewed 07/06/22 @ 20:[address] Mike Anthony MD) Depression (Acute) Insomnia (Acute) Orthostatic hypotension (Acute) GERD (gastroesophageal reflux disease) (Acute) Neuropathic pain (Acute) Hyperlipidemia (Acute) Chronic obstructive pulmonary disease (Chronic) Debility (Acute) Cholelithiasis with choledocholithiasis (Acute) Gallstone pancreatitis (Acute) Cholelithiasis (Acute) Cholestatic hepatitis (Acute) Acute cerebrovascular accident (CVA) due to ischemia (Acute) Vital Signs Temp Pulse Resp BP Pulse Ox O2 Del Method 97.7 F L 74 16 113/68 94 Room Air 07/08/22 14:17 07/08/22 14:17 07/08/22 14:17 07/08/22 14:17 07/08/22 14:17 07/08/22 14:17 Oxygen Delivery Method Room Air Weight: 64.58 kg Body Mass Index (BMI) 19.3 Sodium 143 mmol/L (136-145) 07/07/22 05:22 Potassium 4.4 mmol/L (3.5-5.1) 07/07/22 05:22 Chloride 114 mmol/L (98-107) H 07/07/22 05:22 Carbon Dioxide 24.0 mmol/L (21.0-32.0) 07/07/22 05:22 Anion Gap 5 (5-15) 07/07/22 05:22 BUN 37 mg/dL (7-18) H 07/07/22 05:22 Creatinine 1.52 mg/dL (0.70-1.30) H 07/07/22 05:22 Est GFR (MDRD) Af Amer 57 mL/min (>60) L 07/07/22 05:22 Est GFR (MDRD) Non-Af 47 mL/min (>60) L 07/07/22 05:22 BUN/Creatinine Ratio 24.3 RATIO (10-20) H 07/07/22 05:22 Glucose 85 mg/dL (74-106) 07/07/22 05:22 Assessment/Plan: 1. Pain: Arthritis Pain compound 3 clicks topically BID PRN pain 1-10 and oxycodone 5mg GT Q4H PRN pain 1-10. Resident has not had any doses of the pain compound but has had 1 dose of oxycodone for a pain of 7 in the abdomen. Please clarify if the arthritis pain compound or the oxycodone should be given first line for pain 1-10 since both medications are ordered PRN. Thanks. Please continue to monitor for PRN usage, increased pain, constipation (last BM 07/07), and respiratory depression. 2. Bowel: Miralax 17gm GT daily, bisacodyl 10mg RC daily PRN constipation and MOM 30mL GT x1 PRN constipation. Resident has not had any doses of bisacodyl or MOM. Last documented bowel movement was 07/07. 3. Gallstone pancreatitis: Augmentin 500mg GT BID thru 07/12/22. Please continue to monitor for S/S of infection, diarrhea and renal function. 4. Cholestatic hepatitis: Mucomyst 1200mg GT daily and ursodiol 250mg PO TID. Please continue to monitor for nausea, vomiting, skin rash and stomach pain. 5. Stroke: aspirin 324mg GT daily. Please continue to monitor for S/S of bleeding/stroke and hemoglobin (last 7.6g/dL). 6. COPD: fluticasone/salmeterol 232/14mcg 1puff Q12 and albuterol MDI 2puffs Q6H PRN SOB/wheezing. Please continue to monitor HR (last 74), S/S of thrush, PRN usage and S/S of COPD. Please rinse mouth with water and spit following administration of fluticasone/salmeterol to prevent thrush. 7. Hyperlipidemia: atorvastatin 80mg GT QHS. Please consider ordering a lipid panel (last 09/2019) now and then annually if clinically appropriate. Thanks. Please continue to monitor LFTs (last 07/06/22) and muscle pain. 8. Iron deficiency anemia: ferrous sulfate 300mg GT daily. Please continue to monitor hemoglobin (last 7.6g/dL), constipation and dark stools. 9. Orthostatic hypotension: midodrine 5mg GT TID. Please continue to monitor BP (last 113/68). 10. Hypokalemia: potassium solution 20mEq GT daily. Please continue to monitor potassium levels (last 4.4mmol/L). 11. Gas: simethicone 80mg GT Q6H. Please continue to monitor. Assessment/Plan for indications treated with psychotropic medications: 1. Neuropathic pain: gabapentin 300mg GT TID. Please continue to monitor for increased pain, confusion and renal function. GDR not appropriate as this medication is being used for neuropathic pain. However, resident's CrCl is 36mL/min, it is recommended to decrease dose to 400-1400mg per day in 2 divided dose to prevent falls/fractures. Thanks. 2. Appetite loss: mirtazapine 15mg GT QHS. Per dietitian note, resident with unintentional weight loss. Would not recommend GDR at this time. Please continue to monitor for suicidal ideation (black box warning), and GI side effects. 3. Depression: sertraline 50mg GT daily. Please see physician note regarding GDR. Please continue to monitor for suicidal ideation (Black box warning), GI side effects and falls/fractures (BEERs criteria medication). 4. Insomnia: zolpidem 5mg GT QHS PRN insomnia. Please see physician note regarding GDR. Resident has not required any doses so far. If resident begins to require doses, please continue to monitor for falls/fractures, delirium/dementia as this medication is on the BEERs list. Medical chart and medication regimen reviewed. The following medication irregularities or issues were identified: *1. Arthritis Pain compound 3 clicks topically BID PRN pain 1-10 and oxycodone 5mg GT Q4H PRN pain 1-10. Please clarify if the arthritis pain compound or the oxycodone should be given first line for pain 1-10 since both medications are or dered PRN. Thanks. *2. Gabapentin 300mg GT TID. However, resident's CrCl is 36mL/min, it is recommended to decrease dose to 400-1400mg per day in 2 divided dose to prevent falls/fractures. Thanks. Date of Note:: 07/08/22
--- NOTE | 2022-07-08 14:30 | NURSING ---
residual checked prior to tube feed and noted to be 30cc
--- NOTE | 2022-07-08 14:34 | NURSING ---
Pt left floor for cardiology appointment
[2022-07-08] MEDS: Menthol/Lanolin/Calamine/Znox 113 GM Tube 1 APPLIC TOPICAL (18:08)
--- NOTE | 2022-07-08 18:26 | NURSING ---
residual checked prior to tube feed and noted to be 10cc
[2022-07-08] MEDS: Atorvastatin Calcium 80 MG Tablet GT (21:20)
[2022-07-08] MEDS: Mirtazapine 15 MG Tablet GT (21:22)
[2022-07-09] MEDS: Simethicone 40MG/0.6ML Bottle 80 MG GT ×5 (00:09→23:14)
[2022-07-09 05:50] LABS: Hematocrit 25.3 % (40-54)
[2022-07-09] MEDS: Midodrine HCl 5 MG Tablet GT ×3 (06:19→22:04)
[2022-07-09] MEDS: Sertraline 50 MG Tablet GT (06:19)
[2022-07-09] MEDS: Fluticasone/Salmeterol 232-14 Inhaler 1 PUFF INHALATION ×2 (06:19→17:22)
[2022-07-09] MEDS: Ursodiol 250 MG Tablet GT ×3 (06:19→17:22)
[2022-07-09] MEDS: Amox/Clavulanate 500 MG Tablet GT ×2 (06:19→17:21)
[2022-07-09] MEDS: Menthol/Lanolin/Calamine/Znox 113 GM Tube 1 APPLIC TOPICAL ×2 (06:19→17:22)
[2022-07-09] MEDS: Polyethylene Glycol 3350 17 GM PACKET GT (06:20)
[2022-07-09] MEDS: Gabapentin 300 MG Capsule GT ×3 (06:22→22:04)
[2022-07-09] MEDS: Vital AF 1.2 Cal Liq 1,500 ML 330 ML GT ×4 (06:28→17:23)
--- NOTE | 2022-07-09 06:37 | NURSING ---
pt requested TF be held due to feeling of fullness..only 20 residual, but quite a bit of gas. This am there was no residual and pt tolerated TF without difficulty. No c/o feeling of fullness noted.
[2022-07-09] MEDS: oxyCODONE 5 MG Tablet GT ×2 (10:14→22:05)
[2022-07-09] MEDS: Ferrous Sulfate 300 MG/5 ML UDC GT (10:15)
[2022-07-09] MEDS: Aspirin 81 MG TAB.CHEW 324 MG GT (10:15)
[2022-07-09] MEDS: Potassium Chloride Oral Soln 20 MEQ/15 ML UDC GT (10:15)
--- NOTE | 2022-07-09 11:54 | CASEMGMT ---
Social Work BIMS () and PHQ-9 (01/07) completed for MDS assessment. SW inquired about DC plans. Pt stated he is 50/50 about feeling safe at home alone. SW offered LOAN DOCUMENTATION SPECIALIST resources - pt agreed to consider hiring assistance at home. SW encouraged to begin calling agencies for availability. Will continue to follow. Hansa Kerr ,JACK LITIGATION MANAGER
[2022-07-09 16:00] VITALS: BP 107/68; PULSE 91; RESP 16; TEMP 36.6; O2SAT 92
[2022-07-09 22:00] VITALS: O2SAT 95
[2022-07-09] MEDS: Atorvastatin Calcium 80 MG Tablet GT (22:04)
[2022-07-09] MEDS: Mirtazapine 15 MG Tablet GT (22:05)
[2022-07-10] MEDS: Acetylcysteine (Mucomyst Oral) 20% SOLN 1200 MG GT (06:29)
[2022-07-10] MEDS: Midodrine HCl 5 MG Tablet GT ×3 (06:29→22:40)
[2022-07-10] MEDS: Gabapentin 300 MG Capsule GT ×3 (06:29→22:40)
[2022-07-10] MEDS: Amox/Clavulanate 500 MG Tablet GT ×2 (06:29→17:57)
[2022-07-10] MEDS: Polyethylene Glycol 3350 17 GM PACKET GT (06:29)
[2022-07-10] MEDS: Simethicone 40MG/0.6ML Bottle 80 MG GT ×4 (06:29→22:40)
[2022-07-10] MEDS: Sertraline 50 MG Tablet GT (06:29)
[2022-07-10] MEDS: Ursodiol 250 MG Tablet GT ×3 (06:30→17:57)
[2022-07-10] MEDS: Fluticasone/Salmeterol 232-14 Inhaler 1 PUFF INHALATION ×2 (06:30→17:58)
--- NOTE | 2022-07-10 06:30 | NURSING ---
Residual checked before bolus feeding was 0ml. Tolerated bolus well.
[2022-07-10] MEDS: Vital AF 1.2 Cal Liq 1,500 ML 330 ML GT ×4 (06:36→17:58)
[2022-07-10] MEDS: Menthol/Lanolin/Calamine/Znox 113 GM Tube 1 APPLIC TOPICAL ×2 (06:48→17:57)
[2022-07-10] MEDS: Aspirin 81 MG TAB.CHEW 324 MG GT (10:55)
[2022-07-10] MEDS: Potassium Chloride Oral Soln 20 MEQ/15 ML UDC GT (10:55)
[2022-07-10] MEDS: Ferrous Sulfate 300 MG/5 ML UDC GT (10:55)
--- NOTE | 2022-07-10 12:13 | PN.SURG_ITS ---
Subjective Subjective Patient seen and examined during AM rounds. He is reclining near his window napping when I arrived. He reports some pain in his right upper quadrant which she states started suddenly yesterday. He was initially unsure whether this was related to his incision, but feeling more for the area believes it is directly beneath one of his dressings. He otherwise is without complaint and reports that he has been tolerating tube feeds well. He states that he is making slow progress with therapy. Objective Data Objective Data Vital Signs: Vital Signs Temp Pulse Resp BP Pulse Ox O2 Del Method 97.8 F 91 16 107/68 95 Room Air 07/09/22 16:00 07/09/22 16:00 07/09/22 16:00 07/09/22 16:00 07/09/22 22:00 07/09/22 22:00 Oxygen Delivery Method Room Air Weight: 138 lb 6.4 oz Body Mass Index (BMI) 19.3 Intake & Output: Intake and Output for Last 24 Hours 07/08/22 07/09/22 07/10/22 23:59 23:59 23:59 Intake Total 400 / 400 2880 / 2880 Balance 400 / 400 2880 / 2880 Medical Nutrition Assessment Dietitian: Malnutrition Criteria Met Start: 07/07/22 15:07 Freq: Status: Active Protocol: Document 07/07/22 15:07 (Rec: 07/07/22 15:07 [id number]) Nutrition Malnutrition Evidence of Malnutrition Exists Yes Malnutrition (severe): Chronic Evidenced By Suboptimal Energy Intake ( Severe),Weight Loss (Severe) Clinical Problem Chronic Disease or Condition Related Malnutrition Etiology severe, chronic malnutrition related to inadequate energy intake d/t swallowing difficulties Signs/Symptoms as evidenced by estimated PO intake meeting <75% of estimated energy needs >3 months; unintentional wt loss of ~22.6#/14%; obvious, severe muscle wasting fat loss evident in orbital, clavicle, acromion, and temporal areas per physical exam Status Active Problem Recommendation Dietitian Recommendations/Changes 1) NPO per DIRECTOR MEDICAL SURGICAL. 2) Nepro high in fat, not recommended after cholecystectomy. Will adjust enteral nutrition to Vital AF 1.2- 330mL bolus 5x/day w/ 75mL H2O flush before and after each bolus to provide 1980 calories, 124 g protein per day. Would continue 200mL H2O flush every 4 hours to provide 3288mL total fluid/day (1338mL from formula, 750mL from bolus flushes, 1200mL from additional flushes). 3) Daily wts. Lab / Micro Data Result Diagrams: 07/09/22 05:21 07/07/22 05:22 Physical Exam Const oriented x3 and no apparent distress Resp normal respiratory effort GI GI Narrative: Patient stool scaphoid abdomen, nondistended. Operative dressings remain intact but there is no drainage to these dressings. Once removed patient's Steri- Strips are in place and there is no periincisional erythema or drainage. There is some slight ecchymosis about the central port sites that is resolving with a yellowing hue about the incision sites. Patient's abdomen is soft and minimally tender to palpation. He describes some abdominal wall tenderness along the [facility] upper quadrant midclavicular port site. Assessment & Plan Assessment/Plan (1) S/P cholecystectomy: PLAN: Patient is status postcholecystectomy with intraoperative cholangiogram on 07/08/2022. He overall is recovering well. His exam is reassuring, despite some complaints of discomfort in the right upper quadrant. I do not find evidence of wound compromise or infection. I did review his pathology with him at bedside. Would recommend lying him to shower and wounds can become wetted with shower water, but then dried. Leave Steri-Strips in place until they are spontaneously curling. Patient is invited to follow-up with me as an outpatient once discharged from TCU, but this is also not necessary given today's reassuring exam
[2022-07-10 16:00] VITALS: BP 106/63; PULSE 67; RESP 16; TEMP 36.3; O2SAT 93
[2022-07-10 21:44] VITALS: PULSE 80; RESP 16; O2SAT 95
[2022-07-10] MEDS: Mirtazapine 15 MG Tablet GT (22:40)
[2022-07-10] MEDS: Atorvastatin Calcium 80 MG Tablet GT (22:40)
[2022-07-11 06:15] VITALS: BP 117/68; PULSE 73
[2022-07-11] MEDS: Fluticasone/Salmeterol 232-14 Inhaler 1 PUFF INHALATION ×2 (06:21→17:29)
[2022-07-11] MEDS: Polyethylene Glycol 3350 17 GM PACKET GT (06:21)
[2022-07-11] MEDS: Simethicone 40MG/0.6ML Bottle 80 MG GT ×3 (06:21→17:28)
[2022-07-11 06:23] LABS: Hematocrit 26.2 % (40-54); Hemoglobin 8.1 g/dL (13.0-16.5)
[2022-07-11] MEDS: Ursodiol 250 MG Tablet GT ×3 (06:23→17:27)
[2022-07-11] MEDS: Midodrine HCl 5 MG Tablet GT ×3 (06:23→21:57)
[2022-07-11] MEDS: Vital AF 1.2 Cal Liq 1,500 ML 330 ML GT ×4 (06:23→17:28)
[2022-07-11] MEDS: Amox/Clavulanate 500 MG Tablet GT ×2 (06:23→17:27)
[2022-07-11] MEDS: Sertraline 50 MG Tablet GT (06:23)
[2022-07-11] MEDS: Gabapentin 300 MG Capsule GT ×3 (06:26→22:03)
[2022-07-11] MEDS: Acetylcysteine (Mucomyst Oral) 20% SOLN 1200 MG GT (06:26)
[2022-07-11] MEDS: Ferrous Sulfate 300 MG/5 ML UDC GT (11:02)
[2022-07-11] MEDS: Aspirin 81 MG TAB.CHEW 324 MG GT (11:02)
[2022-07-11] MEDS: Potassium Chloride Oral Soln 20 MEQ/15 ML UDC GT (11:02)
[2022-07-11 13:57] VITALS: BP 102/62; PULSE 80; RESP 16; TEMP 36.6; O2SAT 90
[2022-07-11] MEDS: Menthol/Lanolin/Calamine/Znox 113 GM Tube 1 APPLIC TOPICAL (17:29)
[2022-07-11] MEDS: Atorvastatin Calcium 80 MG Tablet GT (21:56)
[2022-07-11] MEDS: Mirtazapine 15 MG Tablet GT (21:57)
--- NOTE | 2022-07-11 23:38 | NURSING ---
patient refusing TF due to full feeling and stated he sleeps better without it
[2022-07-12] MEDS: Simethicone 40MG/0.6ML Bottle 80 MG GT ×4 (00:30→17:39)
[2022-07-12] MEDS: Sertraline 50 MG Tablet GT (06:28)
[2022-07-12] MEDS: Ursodiol 250 MG Tablet GT ×3 (06:28→17:39)
[2022-07-12] MEDS: Polyethylene Glycol 3350 17 GM PACKET GT (06:28)
[2022-07-12] MEDS: Gabapentin 300 MG Capsule GT ×3 (06:28→22:53)
[2022-07-12] MEDS: Acetylcysteine (Mucomyst Oral) 20% SOLN 1200 MG GT (06:28)
[2022-07-12] MEDS: Amox/Clavulanate 500 MG Tablet GT ×2 (06:28→17:39)
[2022-07-12] MEDS: Midodrine HCl 5 MG Tablet GT ×3 (06:28→22:53)
[2022-07-12] MEDS: Vital AF 1.2 Cal Liq 1,500 ML 330 ML GT ×4 (06:29→17:40)
[2022-07-12] MEDS: Fluticasone/Salmeterol 232-14 Inhaler 1 PUFF INHALATION ×2 (06:30→17:39)
[2022-07-12] MEDS: Ferrous Sulfate 300 MG/5 ML UDC GT (11:11)
[2022-07-12] MEDS: Aspirin 81 MG TAB.CHEW 324 MG GT (11:11)
[2022-07-12] MEDS: Potassium Chloride Oral Soln 20 MEQ/15 ML UDC GT (11:16)
[2022-07-12 15:10] VITALS: BP 117/68; PULSE 77; RESP 16; TEMP 36.6; O2SAT 96
[2022-07-12] MEDS: Menthol/Lanolin/Calamine/Znox 113 GM Tube 1 APPLIC TOPICAL (17:40)
[2022-07-12 22:00] VITALS: PULSE 80; RESP 16; O2SAT 94
[2022-07-12] MEDS: Mirtazapine 15 MG Tablet GT (22:53)
[2022-07-12] MEDS: Atorvastatin Calcium 80 MG Tablet GT (22:53)
[2022-07-13] MEDS: Simethicone 40MG/0.6ML Bottle 80 MG GT ×5 (00:47→22:32)
[2022-07-13 05:59] LABS: Hematocrit 24.9 % (40-54); Hemoglobin 7.8 g/dL (13.0-16.5)
[2022-07-13] MEDS: Acetylcysteine (Mucomyst Oral) 20% SOLN 1200 MG GT (06:38)
[2022-07-13] MEDS: Fluticasone/Salmeterol 232-14 Inhaler 1 PUFF INHALATION ×2 (06:38→17:57)
[2022-07-13] MEDS: Polyethylene Glycol 3350 17 GM PACKET GT (06:38)
[2022-07-13] MEDS: Gabapentin 300 MG Capsule GT ×3 (06:38→22:31)
[2022-07-13] MEDS: Ursodiol 250 MG Tablet GT ×3 (06:39→17:57)
[2022-07-13] MEDS: Sertraline 50 MG Tablet GT (06:39)
[2022-07-13] MEDS: Vital AF 1.2 Cal Liq 1,500 ML 330 ML GT ×3 (06:39→15:05)
[2022-07-13] MEDS: Midodrine HCl 5 MG Tablet GT ×3 (06:39→22:31)
[2022-07-13 08:58] VITALS: PULSE 92; RESP 16; O2SAT 96
--- NOTE | 2022-07-13 09:41 | NURSING ---
Inside Sales Trainer Note; MDS complete
[2022-07-13] MEDS: Aspirin 81 MG TAB.CHEW 324 MG GT (10:14)
[2022-07-13] MEDS: Potassium Chloride Oral Soln 20 MEQ/15 ML UDC GT (10:14)
[2022-07-13] MEDS: Ferrous Sulfate 300 MG/5 ML UDC GT (10:14)
--- NOTE | 2022-07-13 10:30 | NURSING ---
75cc residual this AM, pt able to tolerate TF and meds thus far. will monitor residual next due at 1400
[2022-07-13 13:47] VITALS: BP 100/64; PULSE 76; RESP 18; TEMP 36.4; O2SAT 96
[2022-07-13] MEDS: Vital AF 1.2 Cal Liq 1,500 ML 360 ML GT (17:57)
[2022-07-13] MEDS: Menthol/Lanolin/Calamine/Znox 113 GM Tube 1 APPLIC TOPICAL (17:58)
[2022-07-13] MEDS: Atorvastatin Calcium 80 MG Tablet GT (22:31)
[2022-07-13] MEDS: Mirtazapine 15 MG Tablet GT (22:31)
[2022-07-14 05:41] LABS: Absolute Lymphocyte Count 0.84 X10^3/uL (0.83-4.51); Absolute Neutrophil Count 7.1 X10^3/uL (2.0-7.7); Basophil# 0.05 X10^3/uL; Basophil% 0.5 % (0-1); Eosinophil# 0.27 X10^3/uL; Hemoglobin 7.8 g/dL (13.0-16.5); Lymphocyte # 0.84 X10^3/ul (0.83-4.51); Lymphocyte % 9.2 % (19-41); Mean Corp Hgb Conc 31.2 g/dL (32-36); Mean Corpuscular Volume 89.6 fL (80-94); Mean Platelet Vol. 10.2 fl (6.2-12.0); Monocyte# 0.74 X10^3/uL; Monocyte% 8.1 % (0-10); NRBC Flagged by Analyzer 0 % (0-5); Neutrophil # 7.05 X10^3/uL (2.7-7.7); Neutrophil % 77.4 % (47-70); Platelet Count 372 K/mm3 (150-450); RBC Distribution Width CV 17.2 % (11.6-14.6); RBC Distribution Width SD 56.1 fl (35.1-43.9); Red Blood Count 2.79 M/mm3 (4.6-6.2); White Blood Count 9.1 K/mm3 (4.4-11.0)
[2022-07-14 06:10] LABS: Anion Gap 6 (5-15); BUN 50 mg/dL (7-18); Calcium,Total 9.2 mg/dL (8.5-10.1); Chloride 107 mmol/L (98-107); Creatinine, Serum 1.39 mg/dL (0.70-1.30); EST Glomerular Filtration Rate 52 mL/min (>60); Est Glom Filt Rate - Afr Amer 63 mL/min (>60); Estimated Creatinine Clearance 38.15 ml/min; Glucose 92 mg/dL (74-106); Potassium 5.2 mmol/L (3.5-5.1); Sodium Level 135 mmol/L (136-145)
[2022-07-14] MEDS: Fluticasone/Salmeterol 232-14 Inhaler 1 PUFF INHALATION ×2 (06:51→18:40)
[2022-07-14] MEDS: Midodrine HCl 5 MG Tablet GT ×3 (06:52→22:27)
[2022-07-14] MEDS: Ursodiol 250 MG Tablet GT ×3 (06:52→18:39)
[2022-07-14] MEDS: Simethicone 40MG/0.6ML Bottle 80 MG GT ×4 (06:52→22:37)
[2022-07-14] MEDS: Sertraline 50 MG Tablet GT (06:52)
[2022-07-14] MEDS: Vital AF 1.2 Cal Liq 1,500 ML 360 ML GT ×4 (06:57→18:39)
[2022-07-14] MEDS: Polyethylene Glycol 3350 17 GM PACKET GT (06:57)
[2022-07-14] MEDS: Gabapentin 300 MG Capsule GT ×3 (06:57→22:25)
[2022-07-14] MEDS: Acetylcysteine (Mucomyst Oral) 20% SOLN 1200 MG GT (07:01)
[2022-07-14] MEDS: Nystatin Powder 15gm Bottle 1 APPLIC TOPICAL ×2 (07:11→18:44)
[2022-07-14] MEDS: Menthol/Lanolin/Calamine/Znox 113 GM Tube 1 APPLIC TOPICAL ×2 (07:11→18:41)
[2022-07-14] MEDS: Sodium Polystyrene Sulfonate 15 GM/60 ML UDC PO (09:48)
--- NOTE | 2022-07-14 09:54 | NURSING ---
dr kahn updated on potassium level, new order for kayexalate x1. pt updated and educated that he may develop loose stools to rid K+ from body.
[2022-07-14] MEDS: Aspirin 81 MG TAB.CHEW 324 MG GT (11:16)
[2022-07-14] MEDS: Ferrous Sulfate 300 MG/5 ML UDC GT (11:17)
[2022-07-14 15:01] VITALS: BP 93/53; PULSE 70; RESP 18; TEMP 36.4; O2SAT 96
--- NOTE | 2022-07-14 16:49 | CASEMGMT ---
Social Work Discussed with IDT setting a DC date. Spoke with pt and discussed DC plans. Pt states his legs still feel weak and would like to strengthen those more. SW to notify therapy of pt's goals. SW explained IDT is concerned about pt being home alone as pt is high fall risk, hence not making pt adlib. Inquired about pt contacting [employer] agencies. Pt states, no I have help at home; that's not going happen and I'm not going to [place]. SW stated that pt's 'help' works during the week and recommending additional assistance. Explained unsure how much stronger pt can get as pt may be at new baseline. Pt expressed understanding and still denied having additional assistance. SW offered to coordinate skilled HHC. Pt agreed to that since insurance covers it. Pt agreeable to set DC date for 07/25. Pt has POC mtg with POA tomorrow and SW to confirm plans. SW faxed referral to [facility] for new peg/tube feed supplies. Plan: DC home alone 07/25, HHC PT/OT/SN JACK Valladares
--- NOTE | 2022-07-14 18:51 | NURSING ---
20cc residual tonight, noted dark flecks in ho liquid. will pass on in report to night shift manager to monitor.,
[2022-07-14] MEDS: Atorvastatin Calcium 80 MG Tablet GT (22:26)
[2022-07-14] MEDS: Mirtazapine 15 MG Tablet GT (22:27)
[2022-07-14 22:58] VITALS: PULSE 81; RESP 16; O2SAT 97
[2022-07-14 23:23] VITALS: BP 122/66; PULSE 81
--- NOTE | 2022-07-14 23:30 | NURSING ---
During HS meds. Pt had 10cc of residual out of PEG tube, noted to have minimal dark tinged content. Pt stable and @ baseline. No c/o.
[2022-07-15 05:45] LABS: Hematocrit 24.5 % (40-54); Hemoglobin 7.7 g/dL (13.0-16.5)
[2022-07-15 06:10] LABS: Anion Gap 6 (5-15); BUN 54 mg/dL (7-18); BUN/Creat Ratio 36.5 RATIO (10-20); Chloride 107 mmol/L (98-107); Creatinine, Serum 1.48 mg/dL (0.70-1.30); EST Glomerular Filtration Rate 49 mL/min (>60); Est Glom Filt Rate - Afr Amer 59 mL/min (>60); Estimated Creatinine Clearance 35.57 ml/min; Glucose 92 mg/dL (74-106); Potassium 4.9 mmol/L (3.5-5.1); Sodium Level 137 mmol/L (136-145)
[2022-07-15] MEDS: Polyethylene Glycol 3350 17 GM PACKET GT (06:47)
[2022-07-15] MEDS: Fluticasone/Salmeterol 232-14 Inhaler 1 PUFF INHALATION ×2 (06:47→18:45)
[2022-07-15] MEDS: Simethicone 40MG/0.6ML Bottle 80 MG GT ×4 (06:47→23:03)
[2022-07-15] MEDS: Ursodiol 250 MG Tablet GT ×3 (06:48→18:33)
[2022-07-15] MEDS: Sertraline 50 MG Tablet GT (06:48)
[2022-07-15] MEDS: Midodrine HCl 5 MG Tablet GT ×3 (06:48→21:01)
[2022-07-15] MEDS: Menthol/Lanolin/Calamine/Znox 113 GM Tube 1 APPLIC TOPICAL ×2 (06:49→18:34)
[2022-07-15] MEDS: Gabapentin 300 MG Capsule GT ×3 (06:58→20:58)
[2022-07-15] MEDS: Nystatin Powder 15gm Bottle 1 APPLIC TOPICAL ×2 (06:59→18:34)
[2022-07-15] MEDS: Vital AF 1.2 Cal Liq 1,500 ML 360 ML GT ×4 (07:12→18:33)
--- NOTE | 2022-07-15 09:45 | CASEMGMT ---
Social Work IDT met with patient and POA for care plan meeting. Discussed patient's progress in PT/OT/ST/SN. Confirmed DC plan home alone 07/25 with HHC PT/OT/SN. Inquired about HHC preference. Pt has no preference. Provided print skilled HHC agency list with quality and resource data via [employer] Guide to POA. POA to review and notify this worker of choices. No DME needs. POA to transport. Plan: DC home alone 07/25, new [place], HHC PT/OT/SN JACK ValladaresW
[2022-07-15] MEDS: Acetylcysteine (Mucomyst Oral) 20% SOLN 1200 MG GT (11:16)
[2022-07-15] MEDS: Aspirin 81 MG TAB.CHEW 324 MG GT (11:18)
[2022-07-15] MEDS: Ferrous Sulfate 300 MG/5 ML UDC GT (11:18)
[2022-07-15] MEDS: BACITRACIN 15 GM Tube 1 APPLIC TOPICAL (11:39)
--- NOTE | 2022-07-15 11:53 | NURSING ---
Residual checked prior to administering Tube feed and medication 40cc of ho colored residual noted. Pt assisted with tube feed at this time.
--- NOTE | 2022-07-15 14:30 | NURSING ---
Residual checked prior to administering Tube feed and medication. 175ml of ho residual noted. Pt helped administer feed and medication.
[2022-07-15 15:27] VITALS: BP 105/57; PULSE 70; RESP 16; TEMP 36.3; O2SAT 95
--- NOTE | 2022-07-15 19:10 | PCM.DC.SUM ---
Providers Date of Admission: 07/06/22 Primary Care Physician: Dr. Anderson Crowley MD Reason For Visit: PANCREATITUS Diagnosis Discharge Diagnosis (1) S/P cholecystectomy: Status: Acute Code(s): Z90.49 - Acquired absence of other specified parts of digestive tract Plan 81 year old male with below past medical history hospitalized for gallstone pancreatitis, underwent ERCP, sphincterotomy, followed by laparoscopic cholecystectomy, admitted to TCU with debility, here for rehabilitation, strengthening, prior to discharge home alone. Debility - PT/OT. Pain - Arthritis pain compound 3 clicks topical bid, Oxycodone 5mg q4h prn. Bowel - Miralax 17gm daily, Dulcolax 10mg pr daily prn, MOM 30ml x 1 prn. Adult immunization - Administer pneumonia vaccine, covid19 vaccine, flu vaccine as appropriate. DVT prophylaxis - Hold. 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 COPD - Fluticasone/salmeterol 1 puff q12h, albuterol 2 puffs q6h prn. Gallstone pancreatitis - Augmentin 500mg bid thru 07/12/2022. Stroke - Aspirin 324mg daily. Hyperlipidemia - Atorvastatin 80mg qhs. Iron deficiency anemia - Ferrous sulfate 300mg daiy. Neuropathic pain - Gabapentin 300mg tid. Skin irritation - Calmoseptine topical bid. Orthostatic hypotension - Midodrine 5mg gt tid. Appetite loss - Mirtazapine 15mg qhs. Nutrition - Nepro 360ml 4x/day. Tinea Corporis - Nystatin powder topical bid. Hypokalemia - KCL 20meq daily. 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 Gas - Simethicone 80mg q6h. 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 Medications at Discharge Home Medications mirtazapine 15 mg tablet 15 mg feeding tube QHS sleep/appetite 05/28/22 aspirin 81 mg chewable tablet 324 mg G-tube DAILYCM blood thinner 06/11/22 fluticasone 232 mcg-salmeterol 14 mcg/actuation breath activated powdr 1 inh inhalation Q12 shortness of breath/wheezing 06/11/22 gabapentin 300 mg capsule 300 mg feeding tube TID nerve pain 07/01/22 acetylcysteine 200 mg/mL (20 %) solution 1,200 mg (6 mL) G-tube DAILY 30 days #180 mL 07/15/22 atorvastatin 80 mg tablet 80 mg G-tube QHS 30 days #30 tabs 07/15/22 ferrous sulfate 300 mg (60 mg iron)/5 mL oral liquid 300 mg (5 mL) G-tube DAILY@1200 30 days #150 mL 07/15/22 midodrine 5 mg tablet 5 mg G-tube TID 30 days #90 tabs 07/15/22 nut.tx impaired digestive fxn-fiber 0.08 gram-1.2 kcal/mL oral liquid (Vital AF 1.2 Tonja) 360 ml G-tube 0600,1000,1400,1800 30 days #43,200 mL 07/15/22 sertraline 50 mg tablet 50 mg G-tube DAILY 30 days #30 tabs 07/15/22 simethicone 40 mg/0.6 mL oral drops,suspension (Infants Simethicone) 80 mg (1.2 mL) G-tube Q6 30 days #144 mL 07/15/22 ursodiol 250 mg tablet 250 mg G-tube 0600,1200,1700 30 days #90 tabs 07/15/22 Hospital Course Operations cholecystecomy and ERCP Procedures None Summary of Care Provided Minutes Spent on Discharge: 35 Hospital Course: 81 year old male with below past medical history hospitalized for gallstone pancreatitis, underwent ERCP, sphincterotomy, followed by laparoscopic cholecystectomy, admitted to TCU with debility, here for rehabilitation, strengthening, prior to discharge home alone. Discharge home alone 07/25/2022, new PEG, Home Health Care PT/OT/SN. Physical Exam Const alert General Appearance: cooperative HEENT normocephalic Eyes PERRL and EOMs intact bilaterally Neck supple, no JVD and no carotid bruits Resp normal respiratory effort, normal air movement and clear to auscultation bilaterally Cardio regular rate and regular rhythm GI normal to inspection, nondistended, normoactive bowel sounds, non-tender and non-distended GI Narrative: Gastrostomy tube. Extremity normal capillary refill General Extremity: Negative for edema Skin no rashes or lesions noted General Skin Exam: no breakdown Psych affect normal Appearance: appropriate Medical Records Data Medical Nutrition Assessment Dietitian: Malnutrition Criteria Met Start: 07/07/22 15:07 Freq: Status: Active Protocol: Document 07/15/22 11:43 [facility] (Rec: 07/15/22 11:44 [facility] [id number]) Nutrition Malnutrition Evidence of Malnutrition Exists Yes Malnutrition (severe): Chronic Evidenced By Suboptimal Energy Intake ( Severe),Weight Loss (Severe), Physical Changes (Severe) Clinical Problem Chronic Disease or Condition Related Malnutrition Etiology severe, chronic malnutrition related to inadequate energy intake d/t swallowing difficulties Signs/Symptoms as evidenced by estimated PO intake meeting <75% of estimated energy needs >3 months; unintentional wt loss of ~17% in past 6-7 mo; obvious, severe muscle wasting fat loss evident in orbital, clavicle, acromion, and temporal areas per physical exam Status Active Problem Recommendation Dietitian Recommendations/Changes 1) NPO per RUCHING MACHINE OPERATOR. 2) Will continue Vital AF 1.2 - 360mL bolus 4x/day w/ 75mL H2O flush before and after each bolus to provide 1728 calories, 108 g protein. Will add 180 ml Vital AF 1.2 at 2000 w/ 50 ml H2O flush before and after each bolus to provide 216 tonja/ 13.5 gm pro. Will decrease to 100mL H2O flush every 4 hours. TF as ordered will provide 1944 tonja/ 121 gm pro/ 1867 ml free water/day. 3) Daily wts. Weight / BMI Weight Weight: 62.142 kg Body Mass Index (BMI) 19.3 ABG / Lab / Microbiology Data Result Diagrams: 07/15/22 05:14 07/15/22 05:14 Laboratory: Laboratory Results - last 24 hr 07/15/22 05:14: Hgb 7.7 L, Hct 24.5 L 07/15/22 05:14: Sodium 137, Potassium 4.9, Chloride 107, Carbon Dioxide 24.0, Anion Gap 6, BUN 54 H, Creatinine 1.48 H, Estim Creat Clear Calc 35.57, Est GFR (MDRD) Af Amer 59 L, Est GFR (MDRD) Non-Af 49 L, BUN/Creatinine Ratio 36.5 H, Glucose 92, Calcium 9.0 D/C Instructions Discharge Diet: - (NPO.) Discharge Activity: Return to Normal Activity, May Shower and Use Walker Weight Bearing Status: Weight bearing as tolerated Call your doctor if you observe: Fever of 101 or Higher, Inability to urinate, Inability to have a bowel movement, Shortness of breath, Dizziness, Fainting spells, Swelling in the ankles, Chest pain and Uncontrolled pain Additional Instructions: Discharge home alone 07/25/2022, new PEG, Home Health Care PT/OT/SN. Please Follow Up With: Brandon Stevens MD When: As scheduled. Meaningful Use Info Meaningful Use Diagnoses (Choose all that apply): None applicable Discharge Plan Admission Admit Date/Time: 07/06/22 14:55 Primary Reason for Your Visit: Debility. Attending Provider: Mike Anthony Chi Primary Care Provider: Anderson Crowley Instructions Additional Instructions / Restrictions: Discharge home alone 07/25/2022, new PEG, Home Health Care PT/OT/SN. Discharge Orders/Prescriptions Prescriptions: New acetylcysteine 200 mg/mL (20 %) Solution 1,200 mg G-tube DAILY 30 Days Qty: 180 0RF atorvastatin 80 mg Tablet 80 mg G-tube QHS 30 Days Qty: 30 0RF midodrine 5 mg Tablet 5 mg G-tube TID 30 Days Qty: 90 0RF ferrous sulfate 300 mg (60 mg iron)/5 mL Liquid 300 mg G-tube DAILY@1200 30 Days Qty: 150 0RF ursodiol 250 mg Tablet 250 mg G-tube 0600,1200,1700 30 Days Qty: 90 0RF simethicone [Infants Simethicone] 40 mg/0.6 mL Drops,Suspension 80 mg G-tube Q6 30 Days Qty: 144 0RF sertraline 50 mg Tablet 50 mg G-tube DAILY 30 Days Qty: 30 0RF Vital AF 1.2 Tonja 0.08 gram- 1.2 kcal/mL Liquid 360 ml G-tube 0600,1000,1400,1800 30 Days Qty: 74117 0RF Continued mirtazapine 15 MG tablet 15 mg feeding tube QHS aspirin 81 mg tablet,chewable 324 mg G-tube DAILYCM fluticasone propion-salmeterol 232-14 mcg/actuation aerosol powdr breath activated 1 inh inhalation Q12 gabapentin 300 mg capsule 300 mg feeding tube TID Discontinued albuterol sulfate 1 INHALER inhaler 2 puff inhalation Q6H PRN PRN (Reason: Sob &/Or Wheezing) atorvastatin 40 mg Tablet 80 mg feeding tube QHS magnesium hydroxide 400 mg/5 mL Suspension 30 ml PO .PRN X 1 PRN (Reason: Constipation) Qty: 0 0RF bisacodyl 10 mg Suppository [address] .PRN X 1 PRN (Reason: Constipation) Qty: 0 0RF zolpidem 5 mg Tablet 5 mg PO QHS PRN PRN (Reason: Insomnia) Qty: 1 0RF oxycodone 5 mg Tablet 5 mg PO Q4H PRN PRN (Reason: Pain Score 1-10) Qty: 0 0RF Arthritis Pain Compound 3 click topical BID PRN (Reason: Pain) midodrine 5 mg tablet 5 mg G-tube TID nystatin-triamcinolone 100,000-0.1 unit/g-% cream 1 applic topical BID@0600,2200 Protocol: *Topical Application Instructions APPLICATION INSTRUCTIONS: penile foreskin redness simethicone [Infants Simethicone] 40 mg/0.6 mL drops,suspension 80 mg G-tube Q6 nystatin [Nyamyc] 100,000 unit/gram powder 1 applic topical BID PRN (Reason: redness/moisture) Protocol: *Topical Application Instructions APPLICATION INSTRUCTIONS: groin Nepro Carb Steady 0.08 gram-1.8 kcal/mL liquid 360 ml G-tube 4X/DAY acetylcysteine 200 mg/mL (20 %) Solution 6 ml PO DAILY potassium chloride 20 mEq/15 mL Liquid 20 meq PO DAILY ursodiol 250 mg Tablet 250 mg PO TIDCM sertraline 50 mg Tablet 50 mg PO DAILY ferrous sulfate 300 mg (60 mg iron)/5 mL liquid 300 mg PO DAILY polyethylene glycol 3350 [Miralax] 17 gram/dose powder 17 g PO DAILY amoxicillin-pot clavulanate [Augmentin] 500-125 mg tablet 1 tab PO BID Rx Instructions: Last dose will be 10/30 pm Referrals / Follow Up: Anderson Crowley MD [Primary Care Provider] - Disposition Disposition (needs filled in before D/C Order can be placed): Home Health Service
--- NOTE | 2022-07-15 19:26 | NURSING ---
Residual checked prior to administering medication and Tube feed 120ml of ho residual noted.
[2022-07-15] MEDS: Atorvastatin Calcium 80 MG Tablet GT (20:58)
[2022-07-15] MEDS: Mirtazapine 15 MG Tablet GT (21:00)
[2022-07-15 22:37] VITALS: RESP 16; O2SAT 96
[2022-07-16] MEDS: BACITRACIN 15 GM Tube 1 APPLIC TOPICAL (06:08)
[2022-07-16] MEDS: Acetylcysteine (Mucomyst Oral) 20% SOLN 1200 MG GT (06:09)
[2022-07-16] MEDS: Ursodiol 250 MG Tablet GT ×3 (06:09→18:57)
[2022-07-16] MEDS: Sertraline 50 MG Tablet GT (06:09)
[2022-07-16] MEDS: Polyethylene Glycol 3350 17 GM PACKET GT (06:09)
[2022-07-16] MEDS: Gabapentin 300 MG Capsule GT ×3 (06:09→21:19)
[2022-07-16] MEDS: Simethicone 40MG/0.6ML Bottle 80 MG GT ×3 (06:09→18:57)
[2022-07-16] MEDS: Midodrine HCl 5 MG Tablet GT ×3 (06:09→21:20)
[2022-07-16] MEDS: Vital AF 1.2 Cal Liq 1,500 ML 360 ML GT ×4 (06:10→19:05)
[2022-07-16] MEDS: Fluticasone/Salmeterol 232-14 Inhaler 1 PUFF INHALATION ×2 (06:18→18:56)
[2022-07-16] MEDS: Nystatin Powder 15gm Bottle 1 APPLIC TOPICAL ×2 (06:25→18:59)
[2022-07-16] MEDS: Menthol/Lanolin/Calamine/Znox 113 GM Tube 1 APPLIC TOPICAL ×2 (06:25→18:58)
--- NOTE | 2022-07-16 06:28 | NURSING ---
Pt continues to refuse his HS tube feed as it upsets his stomach and interferes his sleep. He states he still feels very full after his dinner tube feed. Note left for Dr. Anthony.
[2022-07-16 06:45] VITALS: BP 116/65; PULSE 66
[2022-07-16] MEDS: Aspirin 81 MG TAB.CHEW 324 MG GT (11:21)
[2022-07-16] MEDS: Ferrous Sulfate 300 MG/5 ML UDC GT (11:21)
--- NOTE | 2022-07-16 13:00 | NURSING ---
Patient has done well demonstrating how to do his own tube feedings. Night tube feeding dc'd per Dr. Anthony and patient made aware. Patient in good spirits.
[2022-07-16 16:00] VITALS: BP 97/54; PULSE 65; RESP 16; TEMP 36.4; O2SAT 95
[2022-07-16] MEDS: Atorvastatin Calcium 80 MG Tablet GT (21:19)
[2022-07-16] MEDS: Mirtazapine 15 MG Tablet GT (21:20)
[2022-07-17] MEDS: Simethicone 40MG/0.6ML Bottle 80 MG GT ×4 (00:09→17:32)
[2022-07-17 05:44] LABS: Hematocrit 25.7 % (40-54); Hemoglobin 7.9 g/dL (13.0-16.5)
[2022-07-17] MEDS: Ursodiol 250 MG Tablet GT ×3 (06:11→17:32)
[2022-07-17] MEDS: Gabapentin 300 MG Capsule GT ×3 (06:11→20:04)
[2022-07-17] MEDS: Polyethylene Glycol 3350 17 GM PACKET GT (06:11)
[2022-07-17] MEDS: Sertraline 50 MG Tablet GT (06:11)
[2022-07-17] MEDS: Midodrine HCl 5 MG Tablet GT ×3 (06:11→20:04)
[2022-07-17] MEDS: Fluticasone/Salmeterol 232-14 Inhaler 1 PUFF INHALATION ×2 (06:12→17:30)
[2022-07-17] MEDS: Acetylcysteine (Mucomyst Oral) 20% SOLN 1200 MG GT (06:18)
[2022-07-17] MEDS: BACITRACIN 15 GM Tube 1 APPLIC TOPICAL (06:27)
[2022-07-17] MEDS: Nystatin Powder 15gm Bottle 1 APPLIC TOPICAL ×2 (06:29→17:35)
[2022-07-17] MEDS: Menthol/Lanolin/Calamine/Znox 113 GM Tube 1 APPLIC TOPICAL ×2 (06:29→17:34)
[2022-07-17] MEDS: Vital AF 1.2 Cal Liq 1,500 ML 360 ML GT ×3 (06:30→17:32)
--- NOTE | 2022-07-17 10:30 | MDS.RN ---
Information for the mds was obtained from review of the clinical record, interview of resident, staff, and direct observation of resident's care.
[2022-07-17] MEDS: Ferrous Sulfate 300 MG/5 ML UDC GT (12:22)
[2022-07-17] MEDS: Aspirin 81 MG TAB.CHEW 324 MG GT (12:22)
--- NOTE | 2022-07-17 14:58 | CASEMGMT ---
Social Work Received call from [facility] requesting additional paperwork supporting the need for peg tube. Faxed more clinical information. JACK ValladaresW
--- NOTE | 2022-07-17 15:43 | NURSING ---
Dry Placer Machine Operator concerned about patient losing weight and having higher residuals recently. She recommended starting reglan and adding back the PM 180cc bolus feed. Note left for Dr. Anthony. Dr. Anthony ordered reglan but said that after patient refused PM bolus so many times he was not going to re-order.
[2022-07-17 16:00] VITALS: BP 97/51; PULSE 70; RESP 16; TEMP 36.7; O2SAT 95
[2022-07-17] MEDS: Metoclopramide 5 MG TABLET GT (20:03)
[2022-07-17] MEDS: Atorvastatin Calcium 80 MG Tablet GT (20:03)
[2022-07-17] MEDS: Mirtazapine 15 MG Tablet GT (20:16)
[2022-07-18] MEDS: Simethicone 40MG/0.6ML Bottle 80 MG GT ×4 (00:10→18:49)
[2022-07-18] MEDS: Fluticasone/Salmeterol 232-14 Inhaler 1 PUFF INHALATION ×2 (05:13→18:09)
[2022-07-18] MEDS: Nystatin Powder 15gm Bottle 1 APPLIC TOPICAL ×2 (05:17→22:37)
[2022-07-18] MEDS: Menthol/Lanolin/Calamine/Znox 113 GM Tube 1 APPLIC TOPICAL ×2 (05:17→22:38)
[2022-07-18] MEDS: BACITRACIN 15 GM Tube 1 APPLIC TOPICAL (05:17)
--- NOTE | 2022-07-18 05:59 | RAD_ITS ---
STUDY: X-RAY - ABDOMEN/PELVIS REASON FOR EXAM: Male, 81 years old. check placement TECHNIQUE: AP portable. 5:56 AM. COMPARISON: Abdomen x-ray 07/06/2022. FINDINGS: Single limited view included lower chest and upper abdomen. G-tube overlying the left mid abdomen. There is contrast in the stomach and proximal duodenum confirming intraluminal placement. No definite extraluminal contrast identified on this single limited supine view. No dilated bowel. Multiple devices in objects, left presumed ureteral stent, device overlying the right abdomen with electrodes along the spine, and spinal surgical hardware unchanged. Surgical clips previous cholecystectomy. Lung bases are not well assessed. RAD/Abdomen Single View (Portable) IMPRESSION: Single view demonstrating contrast in the stomach and duodenum. Electronically Signed: Alysa Silva MD at 6:24 EDT ,
[2022-07-18] MEDS: Gabapentin 300 MG Capsule GT ×3 (06:52→22:36)
[2022-07-18] MEDS: Midodrine HCl 5 MG Tablet GT ×3 (06:52→22:35)
[2022-07-18] MEDS: Polyethylene Glycol 3350 17 GM PACKET GT (06:52)
[2022-07-18] MEDS: Ursodiol 250 MG Tablet GT ×3 (06:52→18:48)
[2022-07-18] MEDS: Vital AF 1.2 Cal Liq 1,500 ML 360 ML GT ×4 (06:52→18:51)
[2022-07-18] MEDS: Sertraline 50 MG Tablet GT (06:53)
[2022-07-18] MEDS: Metoclopramide 5 MG TABLET GT ×4 (06:53→22:33)
--- NOTE | 2022-07-18 07:08 | NURSING ---
Dr Anthony paged at 0610. When this nurse went to check residual gastric juice came out of Pts krystal site and not the tubing. Dr. Anthony ordered Upper Abdominal X-Ray to check placement, possible consult with Dr. Ruggiero.
--- NOTE | 2022-07-18 07:33 | NURSING ---
Pt had 15ml of green/yellow stomach contents. 15ml returned to stomach.
[2022-07-18] MEDS: Aspirin 81 MG TAB.CHEW 324 MG GT (11:07)
[2022-07-18] MEDS: Ferrous Sulfate 300 MG/5 ML UDC GT (11:08)
--- NOTE | 2022-07-18 11:27 | NURSING ---
PLACEMENT VERIFIED, 0 RESIDUAL, MEDS AND VITAL AF ADMINISTERED PER ORDER, PT TOLERATED WELL.
[2022-07-18 14:45] VITALS: BP 112/63; PULSE 71; RESP 16; TEMP 37.1; O2SAT 94
--- NOTE | 2022-07-18 15:20 | NURSING ---
0 RESIDUAL AT 1500 FEEDING. VITAL AF WITH FLUSH AND MEDS GIVEN. PT TOLERATED WELL. PEG SITE CLEANED,NO DRAINAGE NOTED.
[2022-07-18 22:35] VITALS: BP 114/67; PULSE 71; O2SAT 95
[2022-07-18] MEDS: Atorvastatin Calcium 80 MG Tablet GT (22:35)
[2022-07-18] MEDS: Mirtazapine 15 MG Tablet GT (22:36)
[2022-07-19] MEDS: Simethicone 40MG/0.6ML Bottle 80 MG GT ×4 (00:36→17:27)
[2022-07-19] MEDS: Ursodiol 250 MG Tablet GT ×3 (06:44→17:27)
[2022-07-19] MEDS: Midodrine HCl 5 MG Tablet GT ×3 (06:45→21:00)
[2022-07-19] MEDS: Gabapentin 300 MG Capsule GT ×3 (06:45→20:59)
[2022-07-19] MEDS: Sertraline 50 MG Tablet GT (06:45)
[2022-07-19] MEDS: Fluticasone/Salmeterol 232-14 Inhaler 1 PUFF INHALATION ×2 (06:46→17:25)
[2022-07-19] MEDS: BACITRACIN 15 GM Tube 1 APPLIC TOPICAL (06:46)
[2022-07-19] MEDS: Vital AF 1.2 Cal Liq 1,500 ML 360 ML GT ×4 (06:47→20:59)
[2022-07-19] MEDS: Menthol/Lanolin/Calamine/Znox 113 GM Tube 1 APPLIC TOPICAL ×2 (06:59→18:12)
[2022-07-19 07:03] VITALS: BP 110/76; PULSE 76
[2022-07-19] MEDS: Metoclopramide 5 MG TABLET GT ×4 (07:46→20:59)
[2022-07-19] MEDS: Ferrous Sulfate 300 MG/5 ML UDC GT (10:59)
[2022-07-19] MEDS: Aspirin 81 MG TAB.CHEW 324 MG GT (10:59)
[2022-07-19 11:15] VITALS: PULSE 67; RESP 18; O2SAT 94
--- NOTE | 2022-07-19 11:20 | NURSING ---
PLACEMENT CHECKED, 0 RESIDUAL, VITAL AF/FLUSH AND MEDS GIVEN. CLEANED,SMALL SCAB BUT NO DRAINAGE UNDER PEG SITE. PT TOLERATED WELL.
--- NOTE | 2022-07-19 15:08 | NURSING ---
PT HAD 30 CC LIGHT BROWN RESIDUAL, NO DRAINAGE AROUND PEG SITE.
[2022-07-19 15:15] VITALS: BP 108/57; PULSE 67; RESP 13; TEMP 36.6; O2SAT 96
[2022-07-19] MEDS: Nystatin Powder 15gm Bottle 1 APPLIC TOPICAL (18:13)
[2022-07-19] MEDS: Atorvastatin Calcium 80 MG Tablet GT (20:59)
[2022-07-19] MEDS: Mirtazapine 15 MG Tablet GT (20:59)
[2022-07-20] MEDS: Simethicone 40MG/0.6ML Bottle 80 MG GT ×4 (00:20→17:56)
[2022-07-20] MEDS: BACITRACIN 15 GM Tube 1 APPLIC TOPICAL (06:33)
[2022-07-20] MEDS: Menthol/Lanolin/Calamine/Znox 113 GM Tube 1 APPLIC TOPICAL ×2 (06:34→17:57)
[2022-07-20] MEDS: Fluticasone/Salmeterol 232-14 Inhaler 1 PUFF INHALATION ×2 (06:35→17:56)
[2022-07-20] MEDS: Polyethylene Glycol 3350 17 GM PACKET GT (06:35)
[2022-07-20] MEDS: Nystatin Powder 15gm Bottle 1 APPLIC TOPICAL ×2 (06:35→17:57)
[2022-07-20] MEDS: Midodrine HCl 5 MG Tablet GT ×3 (06:36→21:48)
[2022-07-20] MEDS: Ursodiol 250 MG Tablet GT ×3 (06:36→17:56)
[2022-07-20] MEDS: Metoclopramide 5 MG TABLET GT ×4 (06:37→21:48)
[2022-07-20] MEDS: Vital AF 1.2 Cal Liq 1,500 ML 360 ML GT ×4 (06:37→21:48)
[2022-07-20] MEDS: Sertraline 50 MG Tablet GT (06:41)
[2022-07-20] MEDS: Gabapentin 300 MG Capsule GT ×3 (06:43→21:48)
[2022-07-20] MEDS: Aspirin 81 MG TAB.CHEW 324 MG GT (11:29)
[2022-07-20] MEDS: Ferrous Sulfate 300 MG/5 ML UDC GT (11:29)
[2022-07-20 13:37] VITALS: BP 101/60; PULSE 70; RESP 16; TEMP 36.4; O2SAT 96
[2022-07-20] MEDS: Atorvastatin Calcium 80 MG Tablet GT (21:48)
[2022-07-20] MEDS: Mirtazapine 15 MG Tablet GT (21:48)
--- NOTE | 2022-07-20 21:50 | NURSING ---
Residual checked prior to administering medication and Tube feed 15ml of light residual noted.
[2022-07-20 22:08] VITALS: PULSE 66; RESP 16; O2SAT 95
[2022-07-21 05:32] LABS: Absolute Lymphocyte Count 0.89 X10^3/uL (0.83-4.51); Absolute Neutrophil Count 5.6 X10^3/uL (2.0-7.7); Basophil# 0.03 X10^3/uL; Basophil% 0.4 % (0-1); Eosinophil# 0.33 X10^3/uL; Eosinophils% 4.3 % (0-5); Hematocrit 27.4 % (40-54); Hemoglobin 8.3 g/dL (13.0-16.5); Lymphocyte # 0.89 X10^3/ul (0.83-4.51); Lymphocyte % 11.6 % (19-41); Mean Corp Hgb Conc 30.3 g/dL (32-36); Mean Corpuscular Hgb 27.5 pg (27.0-32.0); Mean Corpuscular Volume 90.7 fL (80-94); Mean Platelet Vol. 10.5 fl (6.2-12.0); Monocyte# 0.75 X10^3/uL; Monocyte% 9.8 % (0-10); NRBC Flagged by Analyzer 0 % (0-5); Neutrophil # 5.58 X10^3/uL (2.7-7.7); Neutrophil % 72.7 % (47-70); Platelet Count 291 K/mm3 (150-450); RBC Distribution Width SD 57.3 fl (35.1-43.9); Red Blood Count 3.02 M/mm3 (4.6-6.2); White Blood Count 7.7 K/mm3 (4.4-11.0)
[2022-07-21 06:03] LABS: Anion Gap 6 (5-15); BUN 60 mg/dL (7-18); BUN/Creat Ratio 39.7 RATIO (10-20); Calcium,Total 9.2 mg/dL (8.5-10.1); Chloride 106 mmol/L (98-107); Creatinine, Serum 1.51 mg/dL (0.70-1.30); EST Glomerular Filtration Rate 48 mL/min (>60); Est Glom Filt Rate - Afr Amer 58 mL/min (>60); Estimated Creatinine Clearance 35.25 ml/min; Glucose 94 mg/dL (74-106); Potassium 5.3 mmol/L (3.5-5.1); Sodium Level 137 mmol/L (136-145)
[2022-07-21] MEDS: Sertraline 50 MG Tablet GT (06:37)
[2022-07-21] MEDS: Gabapentin 300 MG Capsule GT ×3 (06:37→22:20)
[2022-07-21] MEDS: Midodrine HCl 5 MG Tablet GT ×3 (06:37→22:20)
[2022-07-21] MEDS: Ursodiol 250 MG Tablet GT ×3 (06:37→16:00)
[2022-07-21] MEDS: Simethicone 40MG/0.6ML Bottle 80 MG GT ×4 (06:37→22:19)
[2022-07-21] MEDS: Metoclopramide 5 MG TABLET GT ×4 (06:37→22:20)
[2022-07-21] MEDS: Nystatin Powder 15gm Bottle 1 APPLIC TOPICAL ×2 (06:38→16:11)
[2022-07-21] MEDS: Menthol/Lanolin/Calamine/Znox 113 GM Tube 1 APPLIC TOPICAL ×2 (06:38→16:10)
[2022-07-21] MEDS: Fluticasone/Salmeterol 232-14 Inhaler 1 PUFF INHALATION ×2 (06:38→16:11)
[2022-07-21] MEDS: Polyethylene Glycol 3350 17 GM PACKET GT (06:39)
[2022-07-21] MEDS: Vital AF 1.2 Cal Liq 1,500 ML 360 ML GT ×4 (06:41→22:19)
[2022-07-21] MEDS: Sodium Polystyrene Sulfonate 15 GM/60 ML UDC 30 GM GT (08:11)
--- NOTE | 2022-07-21 08:28 | CASEMGMT ---
Social Work Received written note from STEPHAN with choices for HHC. First referral made via phone to [facility] for PT/OT/SN. Hansa Kerr MSW DIAMOND EXPERT
[2022-07-21] MEDS: Ferrous Sulfate 300 MG/5 ML UDC GT (11:29)
[2022-07-21] MEDS: Aspirin 81 MG TAB.CHEW 324 MG GT (11:29)
[2022-07-21 14:36] VITALS: BP 94/63; PULSE 73; RESP 16; TEMP 36.4; O2SAT 98
[2022-07-21] MEDS: Atorvastatin Calcium 80 MG Tablet GT (22:21)
[2022-07-21] MEDS: Mirtazapine 15 MG Tablet GT (22:22)
[2022-07-22 05:59] LABS: Anion Gap 6 (5-15); BUN 61 mg/dL (7-18); BUN/Creat Ratio 43.9 RATIO (10-20); Calcium,Total 8.7 mg/dL (8.5-10.1); Chloride 108 mmol/L (98-107); Creatinine, Serum 1.39 mg/dL (0.70-1.30); EST Glomerular Filtration Rate 52 mL/min (>60); Est Glom Filt Rate - Afr Amer 63 mL/min (>60); Estimated Creatinine Clearance 37.88 ml/min; Glucose 93 mg/dL (74-106); Potassium 4.4 mmol/L (3.5-5.1); Sodium Level 139 mmol/L (136-145)
[2022-07-22 06:00] VITALS: BP 119/64; PULSE 63
[2022-07-22] MEDS: Nystatin Powder 15gm Bottle 1 APPLIC TOPICAL ×2 (06:30→16:23)
[2022-07-22] MEDS: Polyethylene Glycol 3350 17 GM PACKET GT (06:31)
[2022-07-22] MEDS: Fluticasone/Salmeterol 232-14 Inhaler 1 PUFF INHALATION ×2 (06:31→16:22)
[2022-07-22] MEDS: Menthol/Lanolin/Calamine/Znox 113 GM Tube 1 APPLIC TOPICAL (06:31)
[2022-07-22] MEDS: Gabapentin 300 MG Capsule GT ×3 (06:31→22:51)
[2022-07-22] MEDS: Simethicone 40MG/0.6ML Bottle 80 MG GT ×4 (06:31→23:00)
[2022-07-22] MEDS: Ursodiol 250 MG Tablet GT ×3 (06:34→16:25)
[2022-07-22] MEDS: Midodrine HCl 5 MG Tablet GT ×3 (06:34→22:51)
[2022-07-22] MEDS: Sertraline 50 MG Tablet GT (06:35)
[2022-07-22] MEDS: Metoclopramide 5 MG TABLET GT ×4 (06:35→22:51)
[2022-07-22] MEDS: Vital AF 1.2 Cal Liq 1,500 ML 360 ML GT ×4 (06:36→18:25)
[2022-07-22] MEDS: BACITRACIN 15 GM Tube 1 APPLIC TOPICAL (06:36)
[2022-07-22] MEDS: Aspirin 81 MG TAB.CHEW 324 MG GT (13:24)
[2022-07-22] MEDS: Ferrous Sulfate 300 MG/5 ML UDC GT (13:25)
[2022-07-22 15:45] VITALS: BP 108/58; PULSE 69; RESP 14; TEMP 36.6; O2SAT 98
[2022-07-22] MEDS: Mirtazapine 15 MG Tablet GT (22:51)
[2022-07-22] MEDS: Atorvastatin Calcium 80 MG Tablet GT (22:51)
[2022-07-22 23:06] VITALS: PULSE 74; RESP 15; O2SAT 98
[2022-07-23] MEDS: Ursodiol 250 MG Tablet GT ×3 (06:36→17:48)
[2022-07-23] MEDS: Fluticasone/Salmeterol 232-14 Inhaler 1 PUFF INHALATION ×2 (06:36→17:48)
[2022-07-23] MEDS: Sertraline 50 MG Tablet GT (06:36)
[2022-07-23] MEDS: Metoclopramide 5 MG TABLET GT ×4 (06:36→21:25)
[2022-07-23] MEDS: Midodrine HCl 5 MG Tablet GT ×3 (06:36→21:25)
[2022-07-23] MEDS: Gabapentin 300 MG Capsule GT ×3 (06:37→21:25)
[2022-07-23] MEDS: Simethicone 40MG/0.6ML Bottle 80 MG GT ×4 (06:37→23:41)
[2022-07-23] MEDS: Vital AF 1.2 Cal Liq 1,500 ML 360 ML GT ×4 (06:37→17:49)
[2022-07-23] MEDS: Nystatin Powder 15gm Bottle 1 APPLIC TOPICAL ×2 (06:37→17:50)
[2022-07-23] MEDS: Menthol/Lanolin/Calamine/Znox 113 GM Tube 1 APPLIC TOPICAL (06:38)
--- NOTE | 2022-07-23 08:55 | CASEMGMT ---
Social Work Therapy has been working with pt on ambulating with a cane since pt does not have a FWW at home. Pt adamantly refusing this worker ordering a walker for home. Hansa Kerr, JACK ROEW
[2022-07-23 10:00] VITALS: O2SAT 94
[2022-07-23] MEDS: Aspirin 81 MG TAB.CHEW 324 MG GT (11:01)
[2022-07-23] MEDS: Ferrous Sulfate 300 MG/5 ML UDC GT (11:01)
[2022-07-23 15:31] VITALS: BP 100/59; PULSE 71; RESP 14; TEMP 36.5; O2SAT 97
[2022-07-23 21:15] VITALS: BP 101/56; PULSE 66
[2022-07-23] MEDS: Atorvastatin Calcium 80 MG Tablet GT (21:25)
[2022-07-23] MEDS: Mirtazapine 15 MG Tablet GT (21:26)
[2022-07-24] MEDS: Polyethylene Glycol 3350 17 GM PACKET GT (06:16)
[2022-07-24] MEDS: Fluticasone/Salmeterol 232-14 Inhaler 1 PUFF INHALATION ×2 (06:16→18:11)
[2022-07-24] MEDS: Simethicone 40MG/0.6ML Bottle 80 MG GT ×4 (06:17→22:27)
[2022-07-24] MEDS: Vital AF 1.2 Cal Liq 1,500 ML 360 ML GT ×4 (06:18→18:17)
[2022-07-24] MEDS: Midodrine HCl 5 MG Tablet GT ×3 (06:18→22:16)
[2022-07-24] MEDS: Sertraline 50 MG Tablet GT (06:18)
[2022-07-24] MEDS: Ursodiol 250 MG Tablet GT ×3 (06:18→18:11)
[2022-07-24] MEDS: Gabapentin 300 MG Capsule GT ×3 (06:20→22:16)
[2022-07-24] MEDS: Metoclopramide 5 MG TABLET GT ×4 (06:21→22:16)
[2022-07-24] MEDS: Menthol/Lanolin/Calamine/Znox 113 GM Tube 1 APPLIC TOPICAL (06:27)
[2022-07-24] MEDS: Nystatin Powder 15gm Bottle 1 APPLIC TOPICAL ×2 (06:34→18:18)
[2022-07-24 06:36] VITALS: BP 104/56; PULSE 68
[2022-07-24 09:45] VITALS: PULSE 64; RESP 18; O2SAT 90
--- NOTE | 2022-07-24 10:20 | CASEMGMT ---
Social Work BIMS () and PHQ-9 (12/07) completed for MDS assessment. Hansa Kerr MSW COMMUNICATION AND OUTREACH MANAGER
[2022-07-24] MEDS: Ferrous Sulfate 300 MG/5 ML UDC GT (10:59)
[2022-07-24] MEDS: Aspirin 81 MG TAB.CHEW 324 MG GT (10:59)
[2022-07-24 14:55] VITALS: BP 109/63; PULSE 71; RESP 16; TEMP 36.6; O2SAT 97
--- NOTE | 2022-07-24 15:03 | NURSING ---
PLACEMENT VERIFIED, 0 RESIDUAL IN MORNING. 40 CC AT 1400 FEEDING. PT TOLERATED WELL,NO COMPLAINTS.
--- NOTE | 2022-07-24 18:32 | NURSING ---
0 RESIDUAL AT 1800. NO DRAINAGE AT PEG SITE. PT TOLERATED WELL.
[2022-07-24] MEDS: Atorvastatin Calcium 80 MG Tablet GT (22:16)
[2022-07-24] MEDS: Mirtazapine 15 MG Tablet GT (22:16)
[2022-07-25] MEDS: Midodrine HCl 5 MG Tablet GT (06:56)
[2022-07-25] MEDS: Gabapentin 300 MG Capsule GT (06:56)
[2022-07-25] MEDS: Metoclopramide 5 MG TABLET GT (06:56)
[2022-07-25] MEDS: Polyethylene Glycol 3350 17 GM PACKET GT (06:56)
[2022-07-25] MEDS: Menthol/Lanolin/Calamine/Znox 113 GM Tube 1 APPLIC TOPICAL (06:56)
[2022-07-25] MEDS: Simethicone 40MG/0.6ML Bottle 80 MG GT (06:56)
[2022-07-25] MEDS: Sertraline 50 MG Tablet GT (06:56)
[2022-07-25] MEDS: Ursodiol 250 MG Tablet GT (06:56)
[2022-07-25] MEDS: Nystatin Powder 15gm Bottle 1 APPLIC TOPICAL (06:57)
[2022-07-25] MEDS: Vital AF 1.2 Cal Liq 1,500 ML 360 ML GT ×2 (07:08→09:38)
[2022-07-25] MEDS: Fluticasone/Salmeterol 232-14 Inhaler 1 PUFF INHALATION (07:09)
[2022-07-25 10:17] VITALS: BP 106/59; PULSE 71; RESP 16; TEMP 37.1; O2SAT 91
== END 2022-07-25 10:38 | disposition home health service (06) | DRG 949 ==
PROVIDERS: Admitting Provider Family Medicine Geriatric Medicine; PCP Family Medicine; Visit Provider Family Medicine Geriatric Medicine
DX: Z48.815 Encounter for surgical aftercare following surgery on the digestive system (principal); K85.10 Biliary acute pancreatitis without necrosis or infection; D50.9 Iron deficiency anemia, unspecified; G62.9 Polyneuropathy, unspecified; E78.5 Hyperlipidemia, unspecified; B35.4 Tinea corporis; J44.9 Chronic obstructive pulmonary disease, unspecified; Z93.1 Gastrostomy status; K21.9 Gastro-esophageal reflux disease without esophagitis; I95.1 Orthostatic hypotension; M19.90 Unspecified osteoarthritis, unspecified site; E87.6 Hypokalemia; Z87.891 Personal history of nicotine dependence; G47.00 Insomnia, unspecified; F32.A Depression, unspecified; N40.0 Benign prostatic hyperplasia without lower urinary tract symptoms; Z79.899 Other long term (current) drug therapy; Z79.82 Long term (current) use of aspirin
CPT/HCPCS: 36415; 74018; 80048; 85014; 85018; 85025; 92526; 92610; 97110; 97116; 97162; 97166; 97530; 97535; 97802; 97803

== ENCOUNTER 2023-05-26 12:43 | Emergency (ER) | payer MEDICARE, OTHER, SELFPAY ==
[2023-05-26 12:44] VITALS: BP 163/117; PULSE 102; RESP 15; TEMP 36.6; O2SAT 97
--- NOTE | 2023-05-26 13:08 | EKG12_ITS ---
Test Reason : HYPRTENSION Blood Pressure : / mmHG Vent. Rate : 097 BPM Atrial Rate : 097 BPM P-R Int : 182 ms QRS Dur : 142 ms QT Int : 382 ms P-R-T Axes : 062 265 059 degrees QTc Int : 485 ms Normal sinus rhythm Right bundle branch block Abnormal ECG Confirmed by KWAKU ALLEN, BAILEE ([id number]), copy editor AIDA [place]O ([id number]) on 05/27/2023 1:13:41 PM Referred By: PL Confirmed By:BAILEE AMES MD
--- NOTE | 2023-05-26 13:23 | ED.VIS.GI ---
HPI HPI - GI History of Present Illness Chief Complaint: Nausea/Vomiting Narrative Narrative: Male presenting with nausea/vomiting. He denies chest pain, palpitations, shortness of breath. He states he does not have any abdominal pain. He is making stool and urine. No fevers or chills. No myalgias. Patient states he had multiple episodes of nausea/vomiting. Patient states he lives alone and has no sick contacts. [facility] Medical History Alcohol abuse Alcohol use Arthritis Asymmetric septal hypertrophy Back pain Benign neoplasm of colon Bifascicular bundle branch block BPH (benign prostatic hypertrophy) Cancer Cardiology follow-up encounter Chest pain Chronic cough Chronic pain COPD (chronic obstructive pulmonary disease) Depression Difficulty chewing Dyspnea Former smoker Former smoker Gastric reflux GERD (gastroesophageal reflux disease) Grade I diastolic dysfunction Hiatal hernia History of echocardiogram History of hypertension History of malignant neoplasm of larynx History of pain when walking History of steroid therapy History of stress test Hoarseness Hypertension Hypertension Injury of head and neck Loss of consciousness Lumbar spinal stenosis Microscopic hematuria Nephrolithiasis Neuropathic pain Osteoarthritis of left knee Pharyngeal cancer Polycystic kidney disease Restenosis of arterial stent Rhinitis Shortness of breath on exertion Silent aspiration TIA (transient ischemic attack) Wears dentures Wears glasses Home Medications mirtazapine 15 mg tablet 15 mg feeding tube QHS sleep/appetite 05/28/22 [History Last Taken 06/30/22 20:14] aspirin 81 mg chewable tablet 324 mg G-tube DAILYCM blood thinner 06/11/22 [History Last Taken 07/01/22 08:17] fluticasone 232 mcg-salmeterol 14 mcg/actuation breath activated powdr 1 inh inhalation Q12 shortness of breath/wheezing 06/11/22 [History Last Taken 07/01/22 06:16] gabapentin 300 mg capsule 300 mg feeding tube TID nerve pain 07/01/22 [History Last Taken 07/01/22 06:15] acetylcysteine 200 mg/mL (20 %) solution 1,200 mg (6 mL) G-tube DAILY 30 days #180 mL 07/15/22 [Rx Last Taken Unknown] atorvastatin 80 mg tablet 80 mg G-tube QHS 30 days #30 tabs 07/15/22 [Rx Last Taken Unknown] ferrous sulfate 300 mg (60 mg iron)/5 mL oral liquid 300 mg (5 mL) G-tube DAILY@1200 30 days #150 mL 07/15/22 [Rx Last Taken Unknown] midodrine 5 mg tablet 5 mg G-tube TID 30 days #90 tabs 07/15/22 [Rx Last Taken Unknown] nut.tx impaired digestive fxn-fiber 0.08 gram-1.2 kcal/mL oral liquid (Vital AF 1.2 Papito) 360 ml G-tube 0600,1000,1400,1800 30 days #43,200 mL 07/15/22 [Rx Last Taken Unknown] sertraline 50 mg tablet 50 mg G-tube DAILY 30 days #30 tabs 07/15/22 [Rx Last Taken Unknown] simethicone 40 mg/0.6 mL oral drops,suspension (Infants Simethicone) 80 mg (1.2 mL) G-tube Q6 30 days #144 mL 07/15/22 [Rx Last Taken Unknown] ursodiol 250 mg tablet 250 mg G-tube 0600,1200,1700 30 days #90 tabs 07/15/22 [Rx Last Taken Unknown] nut.tx impaired digestive fxn-fiber 0.08 gram-1.2 kcal/mL oral liquid (Vital AF 1.2 Papito) 360 ml G-tube 0600,1000,1400,1800 30 days #43,200 mL 07/23/22 [Rx Last Taken Unknown] omeprazole 40 mg capsule,delayed release 40 mg PO DAILY #30 caps 05/26/23 [Rx Last Taken Unknown] ondansetron 4 mg disintegrating tablet 4 mg PO Q8H PRN PRN Nausea #14 tabs 05/26/23 [Rx Last Taken Unknown] Allergy/AdvReac Type Severity Reaction Status Date / Time mold Allergy NEEDS Verified 05/26/23 12:50 FOLLOW-UP house dust AdvReac SNEEZING Verified 05/26/23 12:50 morphine AdvReac Vomiting Verified 05/26/23 12:50 poison kayleen extract AdvReac Rash Verified 05/26/23 12:50 Family History Mother CAD (coronary artery disease) Brother COPD (chronic obstructive pulmonary disease) Surgical History H/O hernia repair History of cardiac catheterization History of esophageal dilatation History of heart artery stent History of laminectomy History of tonsillectomy Hx of colonoscopy Internal carotid artery stent present S/P total knee arthroplasty Spinal cord stimulator status Status post insertion of percutaneous endoscopic gastrostomy (PEG) tube Status post total left knee replacement Ureteral stent present Social History household members: none housing: house number of children: 0 current occupational status: retired Smoking Status: Former smoker Smokeless tobacco user: chewing tobacco and other how long ago did patient quit smokin alcohol intake: former substance use type: does not use ROS ROS ED Constitutional Constitutional ED: Denies chills, fever(s) or sweats Eyes Eyes: Denies blurry vision or change in vision ENT ENT ED: Denies ear pain or sore throat Cardiovascular Cardiovascular: Denies chest pain, palpitations or racing heartbeat Respiratory/Chest Respiratory/Chest: Denies cough, dyspnea or sputum Gastrointestinal Gastrointestinal: Reports nausea and vomiting; Denies abdominal pain, constipation or diarrhea Genitourinary Genitourinary ED: Denies dysuria, hematuria or urinary frequency Musculoskeletal Musculoskeletal: Denies arthralgias, myalgias or neck pain Integumentary Denies abscess, Abrasions or rash Neurologic Neurologic: Denies headache(s), paresthesias or weakness Psychiatric Psychiatric: Denies anxiety, depression, suicidal ideation or suicidal thoughts Endocrine Endocrinology: Denies polydipsia or polyuria EXAM Physical Exam Const Vital Signs: 05/26/23 12:44 05/26/23 13:51 Temperature 98 F Temperature Source Oral Pulse Rate 102 H Respiratory Rate 15 Blood Pressure 163/117 H Blood Pressure Mean 132 Pulse Ox 97 Oxygen Delivery Method Room Air Room Air Positive well nourished General Appearance ED: NAD; Negative for pallor HEENT Reports moist mucous membranes normocephalic and atraumatic Eyes PERRL and EOMs intact bilaterally Resp normal respiratory effort and clear to auscultation bilaterally Auscultation: Negative for rales, rhonchi or wheezes Cardio regular rate and regular rhythm GI non-tender and non-distended Neuro CN's II-XII intact bilaterally Sensorium / Orientation: alert Motor Exam: strength 5/5 throughout Psych mental status grossly normal Skin General Skin Exam: Negative for jaundice or pallor MDM MDM MDM Narrative Medical decision making narrative: With nausea/vomiting which started last night. Differential includes acute coronary syndrome, pneumonia, dehydration, electrolyte abnormalities, pancreatitis, colitis, UTI. CBC will be obtained to assess white blood cell count, hemoglobin, platelets. CMP to assess liver function, renal function, electrolytes. Lipase to assess for pancreatitis. EKG and high-sensitivity troponin to assess for ischemia and dysrhythmia. Chest x-ray to rule out pneumonia. Urinalysis to assess for UTI. Patient states he is not having pain currently and he was given Zofran and Protonix. On reevaluation he is feeling much better. CBC shows white blood cell count of 13. Hemoglobin stable 13.3. Platelets are high at 481. Lipase minimally elevated. Sensitivity troponin is 8. EKG on my interpretation shows a normal sinus rhythm with a ventricular rate 97 bpm with right bundle branch block. Chest x-ray shows a mass in the right upper lobe, interpretation. Radiology interprets as spiculated lung mass. They recommended CT. This was performed. CT of the chest shows concerning for right upper lobe neoplasm. Patient was counseled this. [place] fast pass was initiated. Nurse practitioner called back from [place] fast pass in regard to come him. Impression: 1. Nausea/vomiting 2. Spiculated lung masses right upper lobe Lab Data Attestation: I reviewed the patient's lab results. Labs: Laboratory Results - last 24 hr 05/26/23 05/26/23 13:00 15:00 WBC 13.0 H RBC 4.70 Hgb 13.9 Hct 42.9 MCV 91.3 MCH 29.6 MCHC 32.4 RDW Std Deviation 43.2 RDW Coeff of [place] 12.9 Plt Count 481 H MPV 10.4 Immature Gran % (Auto) 0.800 Neut % (Auto) 89.4 H Lymph % (Auto) 5.4 L [place] % (Auto) 3.5 Eos % (Auto) 0.4 Baso % (Auto) 0.5 Absolute Neuts (auto) 11.7 H Absolute Lymphs (auto) 0.70 L Nucleated RBC % 0 Sodium 135 L Potassium 5.1 Chloride 107 Carbon Dioxide 22.0 Anion Gap 6 BUN 54 H Creatinine 1.51 H Estim Creat Clear Calc 37.97 Est GFR (MDRD) Af Amer 57 L Est GFR (MDRD) Non-Af 47 L BUN/Creatinine Ratio 35.8 H Glucose 114 H Calcium 10.1 Total Bilirubin 0.30 Direct Bilirubin 0.11 AST 34 ALT 41 Alkaline Phosphatase 117 Troponin I High Sens 8 Total Protein 9.4 H Albumin 3.1 L Globulin 6.3 H Lipase 149 H Urine Color Yellow Urine Clarity Clear Urine pH 6.0 Ur Specific Sims 1.020 Urine Protein 30 H Urine Glucose (UA) Normal Urine Ketones Negative Urine Occult Blood 10 H Urine Nitrite Negative Urine Bilirubin Negative Urine Urobilinogen Normal Ur Leukocyte Esterase Negative Urine RBC 0 SEEN Urine WBC 0 SEEN Ur Squamous Epith Cells 0 SEEN Urine Bacteria 0 SEEN Urine Mucus 0 SEEN Radiography Diagnostic Testing: Clinical Impression(s) from Imaging Studies Chest X-Ray 05/26/23 13:26 IMPRESSION: New spiculated density in the right upper lobe. Correlation with CT scan is recommended. Electronically Signed: Kb Garduno MD at 13:52 EDT , Chest CT 05/26/23 13:58 IMPRESSION: Emphysematous changes with several areas of the abnormal scarring/possible neoplasm in the right upper lobe as discussed. Correlation with a PET scan is recommended. No acute infiltration is seen. Electronically Signed: Kb Garduno MD at 14:30 EDT , Discharge Plan Triage Chief Complaint: Nausea/Vomiting ED Provider: Puneet Valentine Dx/Rx/DC Orders Instructions: ED Pulmonary Nodule, Solitary, ED Vomiting (Adult) Prescriptions: New omeprazole 40 mg capsule,delayed release(DR/EC) 40 mg PO DAILY Qty: 30 0RF ondansetron 4 mg tablet,disintegrating 4 mg PO Q8H PRN PRN (Reason: Nausea) Qty: 14 0RF No Action mirtazapine 15 MG tablet 15 mg feeding tube QHS aspirin 81 mg tablet,chewable 324 mg G-tube DAILYCM fluticasone propion-salmeterol 232-14 mcg/actuation aerosol powdr breath activated 1 inh inhalation Q12 gabapentin 300 mg capsule 300 mg feeding tube TID acetylcysteine 200 mg/mL (20 %) Solution 1,200 mg G-tube DAILY 30 Days Qty: 180 0RF atorvastatin 80 mg Tablet 80 mg G-tube QHS 30 Days Qty: 30 0RF midodrine 5 mg Tablet 5 mg G-tube TID 30 Days Qty: 90 0RF ferrous sulfate 300 mg (60 mg iron)/5 mL Liquid 300 mg G-tube DAILY@1200 30 Days Qty: 150 0RF ursodiol 250 mg Tablet 250 mg G-tube 0600,1200,1700 30 Days Qty: 90 0RF simethicone [Infants Simethicone] 40 mg/0.6 mL Drops,Suspension 80 mg G-tube Q6 30 Days Qty: 144 0RF sertraline 50 mg Tablet 50 mg G-tube DAILY 30 Days Qty: 30 0RF Vital AF 1.2 Papito 0.08 gram- 1.2 kcal/mL Liquid 360 ml G-tube 0600,1000,1400,1800 30 Days Qty: 71689 0RF Vital AF 1.2 Papito 0.08 gram- 1.2 kcal/mL Liquid 360 ml G-tube 0600,1000,1400,1800 30 Days Qty: 45051 0RF Other Ambulatory Orders: Fast Pass: Oncology Referral [facility] (Routine) Facility: [facility] - Location: [facility] Ordered By: Dr. Puneet Valentine Primary Care Provider: Anderson Crowley Referrals: Anderson Crowley MD [Primary Care Provider] - Disposition Disposition: Home, Self Care
--- NOTE | 2023-05-26 13:26 | RAD_ITS ---
STUDY: X-RAY CHEST REASON FOR EXAM: Male, 82 years old. Chest pain TECHNIQUE: Single AP portable view of the chest. COMPARISON: Comparison is made with prior study July 02, 2022. FINDINGS: EKG electrodes are seen. There is a new 2.2 cm x 3 cm spiculated nodular density in the right upper lobe. Hyperinflation. There is no demonstrated pleural abnormality. Normal size heart. Normal mediastinum and tanner. Normal visualized pulmonary arteries. There is atherosclerotic tortuosity of the aortic arch and descending thoracic aorta. Electrodes from a TENS unit are seen with the tip at the T7-T8 level. Normal visualized ribs, clavicles, and shoulders. There is no demonstrated abnormality of the visualized soft tissue structures of the upper abdomen. RAD/Chest 1 View (Portable) IMPRESSION: New spiculated density in the right upper lobe. Correlation with CT scan is recommended. Electronically Signed: Kb Garduno MD at 13:52 EDT ,
[2023-05-26 13:30] LABS: Absolute Neutrophil Count 11.7 X10^3/uL (2.0-7.7); Basophil# 0.06 X10^3/uL; Basophil% 0.5 % (0-1); Eosinophil# 0.05 X10^3/uL; Eosinophils% 0.4 % (0-5); Hematocrit 42.9 % (40-54); Hemoglobin 13.9 g/dL (13.0-16.5); Lymphocyte % 5.4 % (19-41); Mean Corp Hgb Conc 32.4 g/dL (32-36); Mean Corpuscular Hgb 29.6 pg (27.0-32.0); Mean Corpuscular Volume 91.3 fL (80-94); Mean Platelet Vol. 10.4 fl (6.2-12.0); Monocyte# 0.45 X10^3/uL; Monocyte% 3.5 % (0-10); NRBC Flagged by Analyzer 0 % (0-5); Neutrophil # 11.67 X10^3/uL (2.7-7.7); Neutrophil % 89.4 % (47-70); Platelet Count 481 K/mm3 (150-450); RBC Distribution Width CV 12.9 % (11.6-14.6); RBC Distribution Width SD 43.2 fl (35.1-43.9)
[2023-05-26] MEDS: Ondansetron 4 MG/2 ML Vial IV (13:44)
[2023-05-26 13:46] LABS: AST(SGOT) 34 U/L (15-37); Alanine Aminotransfer ALT/SGPT 41 U/L (16-61); Albumin, Serum 3.1 g/dL (3.2-5.0); Alkaline Phosphatase 117 U/L (45-117); Anion Gap 6 (5-15); BUN 54 mg/dL (7-18); BUN/Creat Ratio 35.8 RATIO (10-20); Bilirubin, Direct 0.11 mg/dL (0.00-0.30); Calcium,Total 10.1 mg/dL (8.5-10.1); Chloride 107 mmol/L (98-107); Creatinine, Serum 1.51 mg/dL (0.70-1.30); EST Glomerular Filtration Rate 47 mL/min (>60); Est Glom Filt Rate - Afr Amer 57 mL/min (>60); Estimated Creatinine Clearance 37.97 ml/min; Globulin 6.3 g/dL (2.2-4.2); Glucose 114 mg/dL (74-106); Lipase 149 U/L (13-75); Potassium 5.1 mmol/L (3.5-5.1); Protein, Total 9.4 g/dL (6.4-8.2); Sodium Level 135 mmol/L (136-145); Troponin-I HS 8 pg/mL (3.0-78.0)
[2023-05-26] MEDS: Pantoprazole Sodium 40 MG in 0.9% Normal Saline (100mL MB+) 100 ML 330 MG IV (13:50)
--- NOTE | 2023-05-26 13:58 | CT_ITS ---
STUDY: CT CHEST WITHOUT CONTRAST REASON FOR EXAM: Male, 82 years old. Mass RADIATION DOSAGE (If Supplied By Facility): CTDIvol = ( 6.81 ) mGy, DLP = ( 258.67 ) mGycm TECHNIQUE: Transaxial imaging was performed without the administration of intravenous contrast material. Multiplanar coronal and sagittal images were reformatted. Individualized dose optimization techniques were used for this CT. COMPARISON: Comparison is made with prior chest radiograph done earlier in the day. FINDINGS: CHEST Hyperinflation. Emphysematous changes with bullous formation worse in the upper lobes. There are spiculated irregular densities in the upper lobe. The largest measures 2.1 cm x 1.4 cm. This corresponds to the radiographic changes. There is evidence of bronchiectasis. This most likely represents areas of scarring although correlation with a PET scan is recommended for further evaluation. No consolidation is seen. There are calcifications of the coronary arteries. Normal mediastinum. Normal hilar regions. Normal unenhanced pulmonary arteries. There is atherosclerotic calcification of the aortic arch. There is demineralization of the thoracic spine. There is no demonstrated abnormality of the visualized upper abdomen. CT/Chest without Contrast IMPRESSION: Emphysematous changes with several areas of the abnormal scarring/possible neoplasm in the right upper lobe as discussed. Correlation with a PET scan is recommended. No acute infiltration is seen. Electronically Signed: Kb Garduno MD at 14:30 EDT ,
[2023-05-26 14:44] VITALS: BP 149/74; PULSE 88; RESP 17; O2SAT 96
[2023-05-26 15:16] LABS: Bacteria 0 SEEN /hpf (None Seen); Mucous, Urine 0 SEEN /hpf (<or=2+); Red Blood Cells-Urine 0 SEEN /hpf (0-5); Squamous Epithelial Cells - UA 0 SEEN /hpf (0-5); White Blood Cells 0 SEEN /hpf (0-5)
[2023-05-26 15:21] LABS: Color, Urine Yellow (Yellow); Glucose, Dipstick Normal (Normal); Ketone-Dipstick Negative (Negative); Leukocyte Esterase-Dipstick Negative /ul (Negative); Nitrite-Dipstick Negative (Negative); Occult Blood-Urine 10 /ul (Negative); Protein-Dipstick 30 mg/dl (Negative); Urine Bilirubin Dipstick Negative (Negative); Urine Clarity Clear (Clear); Urine Urobilinogen Normal (Normal)
[2023-05-26 16:56] VITALS: BP 157/81; PULSE 82; RESP 15; O2SAT 97
== END 2023-05-26 16:57 | disposition home or self-care (01) ==
PROVIDERS: Emergency Provider Student in an Organized Health Care Education/Training Program; PCP Family Medicine; Visit Provider Student in an Organized Health Care Education/Training Program
DX: R11.2 Nausea with vomiting, unspecified (principal); Z93.1 Gastrostomy status; J44.9 Chronic obstructive pulmonary disease, unspecified; Z87.891 Personal history of nicotine dependence; R91.8 Other nonspecific abnormal finding of lung field; I10 Essential (primary) hypertension; Z86.73 Personal history of transient ischemic attack (TIA), and cerebral infarction without residual deficits; Z79.82 Long term (current) use of aspirin; Z79.899 Other long term (current) drug therapy; F32.A Depression, unspecified; K21.9 Gastro-esophageal reflux disease without esophagitis; Z95.5 Presence of coronary angioplasty implant and graft; Z96.652 Presence of left artificial knee joint
CPT/HCPCS: 71045; 71250; 80048; 80076; 81001; 83690; 84484; 85025; 93005; 96361; 96374; 99285; A4216; J2405

== ENCOUNTER → 2023-06-28 | Outpatient (CLI) | payer MEDICARE, OTHER, SELFPAY ==
--- NOTE | 2023-06-28 07:46 | CT_ITS ---
EXAM: CT ABDOMEN WITHOUT AND WITH INTRAVENOUS CONTRAST CLINICAL INDICATION: lung nodules -- ADRENAL PROTOCOL TECHNIQUE: Helically acquired images were obtained of the abdomen without and with intravenous contrast. This CT exam was performed using one or more of the following dose reduction techniques: automated exposure control, adjustment of the mA and/or kV according to patient size, and/or use of iterative reconstruction technique. CONTRAST: IV 100mL [id number] COMPARISON: PET/CT, 06/15/[address] abdomen and pelvis, 04/24/2022. FINDINGS: LOWER THORAX: No significant abnormality. Lung bases are clear. No cardiomegaly. No significant pericardial effusion. LIVER: No significant abnormality. Homogeneous. No focal mass. GALLBLADDER AND BILE DUCTS: Status post cholecystectomy. No intra- or extrahepatic biliary ductal dilation. PANCREAS: No significant abnormality. No focal cystic or solid mass. SPLEEN: No significant abnormality. Normal size without focal cystic or solid mass. ADRENALS: Mild bilateral diffuse adrenal hyperplasia. No focal adrenal nodule or mass is identified. KIDNEYS AND URETERS: Multiple renal cysts are identified for which no follow-up would be indicated. Normal renal size and position. No hydronephrosis. STOMACH AND BOWEL: There is a linear metallic intraluminal body within the right colon measuring up to approximately 6 cm in length, perhaps an ingested foreign body. No stomach or bowel distention. No focal inflammatory change. INTRAPERITONEAL SPACE: No significant abnormality. No ascites or other fluid collection. No free air. BONES/JOINTS: Status post L4-L5 posterior fusion. L3, L4, and L5 partial laminectomy changes. 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 No suspicious lytic or blastic abnormality. SOFT TISSUES: Fat-containing umbilical hernia. VASCULATURE: Partially thrombosed unruptured abdominal aortic aneurysm measuring up to approximately 5.9 cm. Atherosclerosis of the aorta and its branch vessels. LYMPH NODES: No enlarged lymph nodes. TUBES, LINES AND DEVICES: A gastrostomy tube is present. Spinal cord stimulator present. CT/Abdomen W/WO IV Contrast IMPRESSION: 1. Partially thrombosed unruptured abdominal aortic aneurysm measuring up to approximately 5.9 cm. ACR White Paper guidelines (Ashwin, et al. JACR 2013; 10(10):789-77) suggest surgical or endovascular referral. 2. Mild bilateral diffuse adrenal hyperplasia. No focal adrenal nodule or mass is identified. Doubt adrenal metastasis. 3. Status post cholecystectomy. 4. There is a linear metallic intraluminal body within the right colon measuring up to approximately 6 cm in length, perhaps an ingested foreign body. 5. 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 Postoperative and degenerative changes in the spine. Electronically Signed: Raudel Singleton DO at 22:28 EDT ,
== END | disposition home or self-care (01) ==
LOC: CT 07:32
PROVIDERS: PCP Family Medicine; Visit Provider Internal Medicine Hematology & Oncology
DX: R91.8 Other nonspecific abnormal finding of lung field (principal)
CPT/HCPCS: 74170; Q9967

== ENCOUNTER 2023-07-21 08:43 | Outpatient (CLI) | payer MEDICARE, OTHER, SELFPAY ==
[2023-07-21] VITALS (11 sets, daily range): BP systolic 106–139; BP diastolic 62–89; PULSE 64–72; RESP 12–14; TEMP 36.8; O2SAT 92–97; BMI 21.2
--- NOTE | 2023-07-21 08:54 | CT_ITS ---
STUDY: CT CHEST WITHOUT CONTRAST REASON FOR EXAM: Male, 82 years old. LUNG NODULES RADIATION DOSAGE (If Supplied By Facility): CTDIvol = ( 10.21 ) mGy, DLP = ( 369.78 ) mGycm TECHNIQUE: Transaxial imaging was performed without the administration of intravenous contrast material. Individualized dose optimization techniques were used for this CT. COMPARISON: Comparison is made with prior study of May 26, 2023. FINDINGS: CHEST The patient was scheduled for biopsy of a right upper lobe pulmonary nodule. Since prior study, there has been progressive irregular infiltrate in the right upper lobe with evidence of the cystic changes. This has the appearance of the pneumonitis rather than a true mass. The patient does have a history of aspiration. Biopsy was not performed. Radiographic follow-up is recommended. CT/Chest without Contrast IMPRESSION: Irregular progressive infiltration in the right upper lobe as described. This is worse as compared to prior study. The CT biopsy is possible. Radiographic follow-up is recommended. The patient did receive 1 mg of Versed and 25 mcg of fentanyl prior to the examination. Electronically Signed: Kb Garduno MD at 11:03 [facility] ,
[2023-07-21 08:56] LABS: Absolute Lymphocyte Count 0.65 X10^3/uL (0.83-4.51); Absolute Neutrophil Count 7.7 X10^3/uL (2.0-7.7); Basophil# 0.05 X10^3/uL; Basophil% 0.5 % (0-1); Eosinophil# 0.61 X10^3/uL; Eosinophils% 6.3 % (0-5); Hematocrit 37.1 % (40-54); Hemoglobin 11.3 g/dL (13.0-16.5); Lymphocyte # 0.65 X10^3/ul (0.83-4.51); Lymphocyte % 6.7 % (19-41); Mean Corp Hgb Conc 30.5 g/dL (32-36); Mean Corpuscular Hgb 28.5 pg (27.0-32.0); Mean Corpuscular Volume 93.7 fL (80-94); Monocyte# 0.57 X10^3/uL; Monocyte% 5.9 % (0-10); NRBC Flagged by Analyzer 0 % (0-5); Neutrophil # 7.73 X10^3/uL (2.7-7.7); Neutrophil % 79.8 % (47-70); Platelet Count 275 K/mm3 (150-450); RBC Distribution Width CV 15.2 % (11.6-14.6); RBC Distribution Width SD 52.3 fl (35.1-43.9); Red Blood Count 3.96 M/mm3 (4.6-6.2); White Blood Count 9.7 K/mm3 (4.4-11.0)
[2023-07-21 09:06] LABS: International Normalized Ratio 1.1
[2023-07-21 09:07] LABS: Partial Thromboplast Time 33.7 Seconds (24.1-36.2)
[2023-07-21] MEDS: 0.9% Normal Saline (250mL Bag) 250 ML 15 ML IV (10:01)
[2023-07-21] MEDS: Midazolam 2 MG/2 ML Syringe IV (10:07)
[2023-07-21] MEDS: fentaNYL 100 MCG/2 ML Ampul IV (10:08)
== END 2023-07-21 23:59 | disposition home or self-care (01) ==
PROVIDERS: PCP Family Medicine; Referring Provider Internal Medicine Hematology & Oncology; Visit Provider Internal Medicine Hematology & Oncology
DX: Z01.812 Encounter for preprocedural laboratory examination (principal); R91.8 Other nonspecific abnormal finding of lung field; R91.1 Solitary pulmonary nodule; Z01.818 Encounter for other preprocedural examination
CPT/HCPCS: 36415; 71250; 85025; 85610; 85730; 99156; J7050; A4216

== ENCOUNTER 2023-08-28 13:42 | Inpatient (IN) | payer MEDICARE, OTHER, SELFPAY ==
[2023-08-28 13:43] VITALS: BP 143/86; PULSE 86; RESP 20; TEMP 35.8; O2SAT 97; BMI 25.0
--- NOTE | 2023-08-28 13:46 | EDS_ITS ---
HPI HPI - GI History of Present Illness Chief Complaint: Abd Pain Informant: patient Abdominal Pain/Flank Pain Onset: Today Context: Sudden Onset Timing: Continuous Quality: Aching Location: Diffuse Worsened by: Nothing Relieved by: Nothing Nausea/Vomiting/Emesis GI Symptom: Positive for Nausea and Vomiting Quality: Positive for Nonbilious; Negative for Blood streaks, Coffee ground or Hematemesis Diarrhea/Melena/Hematochezia GI Symptom: Positive for Diarrhea; Negative for Melena or Hematochezia Associated Symptoms Associated Symptoms: Negative for Dysuria, Frequency or Hematuria Narrative Narrative: Patient presents with abdominal pain that began earlier this morning. Patient states the pain woke him up in the middle of the night. Patient states it has been constant. Patient describes the pain as aching. Patient states the pain is diffuse across his entire abdomen. Patient states nothing makes it better and nothing makes it worse. Patient admits to some nausea and vomiting but denies any hematemesis or coffee-ground emesis. Patient admits to some diarrhea but denies any melena or hematochezia. Patient denies any urinary complaints. Patient denies any fevers or chills. PFSH PFS Medical History Alcohol abuse Alcohol use Arthritis Asymmetric septal hypertrophy Back pain Benign neoplasm of colon Bifascicular bundle branch block BPH (benign prostatic hypertrophy) Cancer Cardiology follow-up encounter Chest pain Chronic cough Chronic pain COPD (chronic obstructive pulmonary disease) CRF (chronic renal failure) Depression Difficulty chewing Dyspnea Former smoker Former smoker Gastric reflux GERD (gastroesophageal reflux disease) Grade I diastolic dysfunction Hiatal hernia History of echocardiogram History of hypertension History of malignant neoplasm of larynx History of pain when walking History of steroid therapy History of stress test Hoarseness Hypertension Hypertension Injury of head and neck Loss of consciousness Lumbar spinal stenosis Lung nodule, multiple Microscopic hematuria Nephrolithiasis Neuropathic pain Osteoarthritis of left knee Pharyngeal cancer Polycystic kidney disease Restenosis of arterial stent Rhinitis Shortness of breath on exertion Silent aspiration TIA (transient ischemic attack) Wears dentures Wears glasses Home Medications mirtazapine 15 mg tablet 15 mg feeding tube QHS sleep/appetite 05/28/22 [History Last Taken 06/30/22 20:14] aspirin 81 mg chewable tablet 324 mg G-tube DAILYCM blood thinner 06/11/22 [History Last Taken 08/28/23] fluticasone 232 mcg-salmeterol 14 mcg/actuation breath activated powdr 1 inh inhalation Q12 shortness of breath/wheezing 06/11/22 [History Last Taken 08/27/23] gabapentin 300 mg capsule 300 mg feeding tube TID nerve pain 07/01/22 [History Last Taken 08/28/23] acetylcysteine 200 mg/mL (20 %) solution 1,200 mg (6 mL) G-tube DAILY 30 days #180 mL 07/15/22 [Rx Last Taken Unknown] atorvastatin 80 mg tablet 80 mg G-tube QHS 30 days #30 tabs 07/15/22 [Rx Last Taken 08/27/23] midodrine 5 mg tablet 5 mg G-tube TID 30 days #90 tabs 07/15/22 [Rx Last Taken 08/28/23] nut.tx impaired digestive fxn-fiber 0.08 gram-1.2 kcal/mL oral liquid (Vital AF 1.2 Papito) 360 ml G-tube 0600,1000,1400,1800 30 days #43,200 mL 07/15/22 [Rx Last Taken Unknown] sertraline 50 mg tablet 50 mg G-tube DAILY 30 days #30 tabs 07/15/22 [Rx Last Taken 08/28/23] simethicone 40 mg/0.6 mL oral drops,suspension (Infants Simethicone) 80 mg (1.2 mL) G-tube Q6 30 days #144 mL 07/15/22 [Rx Last Taken Unknown] ursodiol 250 mg tablet 250 mg G-tube 0600,1200,1700 30 days #90 tabs 07/15/22 [Rx Last Taken 08/28/23] nut.tx impaired digestive fxn-fiber 0.08 gram-1.2 kcal/mL oral liquid (Vital AF 1.2 Papito) 360 ml G-tube 0600,1000,1400,1800 30 days #43,200 mL 07/23/22 [Rx Last Taken Unknown] omeprazole 40 mg capsule,delayed release 40 mg PO DAILY #30 caps 05/26/23 [Rx Last Taken Unknown] Allergy/AdvReac Type Severity Reaction Status Date / Time mold Allergy NEEDS Verified 08/28/23 13:43 FOLLOW-UP house dust AdvReac SNEEZING Verified 08/28/23 13:43 morphine AdvReac Vomiting Verified 08/28/23 13:43 poison kayleen extract AdvReac Rash Verified 08/28/23 13:43 Family History Mother CAD (coronary artery disease) Brother COPD (chronic obstructive pulmonary disease) Surgical History H/O hernia repair History of cardiac catheterization History of cholecystectomy History of esophageal dilatation History of heart artery stent History of laminectomy History of tonsillectomy Hx of colonoscopy Internal carotid artery stent present S/P total knee arthroplasty Spinal cord stimulator status Status post insertion of percutaneous endoscopic gastrostomy (PEG) tube Status post total left knee replacement Ureteral stent present Social History household members: none housing: house number of children: 0 current occupational status: retired Smoking Status: Former smoker Smokeless tobacco user: chewing tobacco and other how long ago did patient quit smokin alcohol intake: former substance use type: does not use ROS ROS ED Constitutional Constitutional ED: Denies chills or fever(s) Eyes Eyes: Denies blurry vision or change in vision ENT ENT ED: Denies rhinorrhea or sore throat Cardiovascular Cardiovascular: Denies chest pain or palpitations Respiratory/Chest Respiratory/Chest: Reports cough; Denies dyspnea Gastrointestinal Gastrointestinal: Reports abdominal pain, diarrhea, nausea and vomiting; Denies melena Genitourinary Genitourinary ED: Denies dysuria or hematuria Musculoskeletal Musculoskeletal: Denies back pain or neck pain Integumentary Denies abscess or rash Neurologic Neurologic: Denies headache(s) or weakness Allergic/Immunologic Allergic/Immunologic ED: Denies mouth swelling or urticaria EXAM Physical Exam Const Vital Signs: 08/28/23 13:43 Temperature 96.4 F L Temperature Source Temporal Pulse Rate 86 Respiratory Rate 20 H Blood Pressure 143/86 H Blood Pressure Mean 105 Pulse Ox 97 Oxygen Delivery Method Room Air Positive well nourished and well developed General Appearance ED: well developed HEENT Reports moist mucous membranes Neck supple and no JVD Resp normal respiratory effort and clear to auscultation bilaterally Cardio regular rate and regular rhythm GI Palpation: soft and tender epigastric, LLQ, RLQ, LUQ, RUQ, periumbilical and suprapubic; Negative for guarding or rebound tenderness present Neuro CN's II-XII intact bilaterally, moves all extremities and no sensory deficits noted Sensorium / Orientation: alert Motor Exam: strength 5/5 throughout Psych mental status grossly normal MDM MDM MDM Narrative Medical decision making narrative: Differential diagnosis includes bowel obstruction, perforation, gastroenteritis, gastritis, pancreatitis, cirrhosis, hepatitis, electrolyte abnormality, and dehydration. CBC will be obtained to assess for leukocytosis and anemia. Comprehensive metabolic profile will be obtained to assess for electrolyte abnormality, renal function, and hepatic function. Lipase will be obtained to assess for pancreatitis. Urinalysis will be obtained to assess for urinary tract infection and hematuria. CT scan of the abdomen pelvis will be obtained to assess for bowel obstruction, perforation, and ascites. Lab Data Attestation: I reviewed the patient's lab results. Lab results narrative: CBC was reviewed. There is a mild anemia with a hemoglobin of 12.0 hematocrit 36.2. Platelets were normal. White blood cell count was normal. Comprehensive metabolic profile was reviewed. BUN was slightly elevated at 65 and creatinine was slightly elevated at 1.69. These are consistent with prior results. Lipase was reviewed and was elevated at 447. Urinalysis was reviewed. There is no evidence of urinary tract infection or hematuria. Labs: Laboratory Results - last 24 hr 08/28/23 08/28/23 13:55 15:50 WBC 6.1 RBC 4.02 L Hgb 12.0 L Hct 36.2 L MCV 90.0 MCH 29.9 MCHC 33.1 RDW Std Deviation 52.3 H RDW Coeff of [place] 15.9 H Plt Count 209 MPV 10.5 Immature Gran % (Auto) 0.700 Neut % (Auto) 81.1 H Lymph % (Auto) 5.8 L [place] % (Auto) 10.9 H Eos % (Auto) 1.2 Baso % (Auto) 0.3 Absolute Neuts (auto) 4.9 Absolute Lymphs (auto) 0.35 L Nucleated RBC % 0 Differential Comment SCANNED Sodium 135 L Potassium 4.5 Chloride 104 Carbon Dioxide 25.0 Anion Gap 6 BUN 65 H Creatinine 1.69 H Estim Creat Clear Calc 38.74 Est GFR (MDRD) Af Amer 50 L Est GFR (MDRD) Non-Af 42 L BUN/Creatinine Ratio 38.5 H Glucose 123 H Calcium 9.3 Total Bilirubin 0.40 AST 45 H ALT 30 Alkaline Phosphatase 62 Total Protein 7.9 Albumin 2.8 L Globulin 5.1 H Albumin/Globulin Ratio 0.5 L Lipase 447 H Urine Color Yellow Urine Clarity Clear Urine pH 6.0 Ur Specific [place] 1.015 Urine Protein 15 H Urine Glucose (UA) Normal Urine Ketones Negative Urine Occult Blood 10 H Urine Nitrite Negative Urine Bilirubin Negative Urine Urobilinogen Normal Ur Leukocyte Esterase Negative Urine RBC 0-5 SEEN Urine WBC 0 SEEN Ur Squamous Epith Cells 0-5 SEEN Urine Bacteria 0 SEEN Urine Mucus 0 SEEN Radiography Diagnostic Testing: Clinical Impression(s) from Imaging Studies Abdomen/Pelvis CT 08/28/23 14:03 IMPRESSION: Stable 4.6 cm infrarenal abdominal aortic aneurysm. Mild ileus or nonspecific diarrheal disease. Electronically Signed: Ivan Tovar MD at 16:44 EST , CT scan of the abdomen and pelvis was obtained. There is a mild ileus. There is a stable 4.6 cm infrarenal abdominal aortic aneurysm. There is no free air or free fluid. This was interpreted by the radiologist and was also dependently reviewed by myself. Treatment and Re-Evaluation :: Patient was given IV fluids and Zofran. Patient is feeling somewhat better on reevaluation. Patient was advised of his findings. Patient states he has had a prior cholecystectomy. Patient states he has not had a drink of alcohol in several years. Patient denies any prior history of pancreas problems. Because of this, I recommended admission to the hospital. Patient is agreeable with this. Case was discussed with the hospitalist. He will admit the patient to his service. Patient understood and was agreeable with the plan. All questions were answered. Discharge Plan Triage Chief Complaint: Abd Pain ED Provider: Yousif Cheng Dx/Rx/DC Orders Clinical Impression: CRF (chronic renal failure), Acute pancreatitis Prescriptions: No Action mirtazapine 15 MG tablet 15 mg feeding tube QHS Hold Instructions: Ordered aspirin 81 mg tablet,chewable 324 mg G-tube DAILYCM fluticasone propion-salmeterol 232-14 mcg/actuation aerosol powdr breath activated 1 inh inhalation Q12 gabapentin 300 mg capsule 300 mg feeding tube TID acetylcysteine 200 mg/mL (20 %) Solution 1,200 mg G-tube DAILY 30 Days Qty: 180 0RF atorvastatin 80 mg Tablet 80 mg G-tube QHS 30 Days Qty: 30 0RF midodrine 5 mg Tablet 5 mg G-tube TID 30 Days Qty: 90 0RF ursodiol 250 mg Tablet 250 mg G-tube 0600,1200,1700 30 Days Qty: 90 0RF simethicone [Infants Simethicone] 40 mg/0.6 mL Drops,Suspension 80 mg G-tube Q6 30 Days Qty: 144 0RF sertraline 50 mg Tablet 50 mg G-tube DAILY 30 Days Qty: 30 0RF Vital AF 1.2 Papito 0.08 gram- 1.2 kcal/mL Liquid 360 ml G-tube 0600,1000,1400,1800 30 Days Qty: 24204 0RF Vital AF 1.2 Papito 0.08 gram- 1.2 kcal/mL Liquid 360 ml G-tube 0600,1000,1400,1800 30 Days Qty: 19865 0RF omeprazole 40 mg capsule,delayed release(DR/EC) 40 mg PO DAILY Qty: 30 0RF Hold Instructions: Ordered Primary Care Provider: Anderson Crowley Referrals: Anderson Crowley MD [Primary Care Provider] - Disposition Disposition: Acute Care Hospital [facility]
--- NOTE | 2023-08-28 14:03 | CT_ITS ---
STUDY: CT ABDOMEN AND PELVIS WITH CONTRAST REASON FOR EXAM: Male, 83 years old. Abdominal pain -- IV PO Contrast RADIATION DOSAGE (If Supplied By Facility): CTDIvol = ( 16.37 ) mGy, DLP = ( 779.63 ) mGycm TECHNIQUE: Transaxial images were obtained from the dome of the diaphragm to the symphysis pubis without oral contrast. Oral and amp;amp; IV Gastrografin and amp;amp; 100mL Isovue-370 was administered. Sagittal and coronal images were reconstructed. Individualized dose optimization techniques were used for this CT. COMPARISON: CT abdomen and pelvis June 28, 2023. FINDINGS: The visualized lung bases are unremarkable. The visualized portions of the heart are within normal limits. Normal liver. Gallbladder surgically absent. Normal spleen. Normal pancreas. Normal bilateral adrenal glands. Multiple simple bilateral renal cortical cysts measuring up to 3.7 cm on the right. No further follow-up required as it appears simple/benign. PEG tube in the stomach. Oral contrast noted throughout the small bowel. Air-fluid levels throughout the colon. The appendix is visualized and appears normal. Infrarenal fusiform abdominal aortic aneurysm measures up to 4.6 cm in diameter essentially unchanged. Calcified plaque and thrombus unchanged. Normal inferior vena cava. Normal retroperitoneum. Normal urinary bladder. Bilateral fat-containing inguinal hernias. Normal abdominal wall. Posterior interbody fusion rods and pedicular screws and laminectomies L3-L4 and L5. Intraspinal electrodes L1-L2 extending into the thoracic spine. CT/Abdomen/Pelvis WITH Contrast IMPRESSION: Stable 4.6 cm infrarenal abdominal aortic aneurysm. Mild ileus or nonspecific diarrheal disease. Electronically Signed: Ivan Tovar MD at 16:44 EST ,
[2023-08-28] MEDS: 0.9% Normal Saline (1000mL) 1,000 ML 1000 ML IV (14:26)
[2023-08-28] MEDS: Ondansetron 4 MG/2 ML Vial IV (14:26)
[2023-08-28 14:31] LABS: ALB/GLOB Ratio 0.5 RATIO (0.9-2.4); AST(SGOT) 45 U/L (15-37); Alanine Aminotransfer ALT/SGPT 30 U/L (16-61); Albumin, Serum 2.8 g/dL (3.2-5.0); Alkaline Phosphatase 62 U/L (45-117); Anion Gap 6 (5-15); BUN 65 mg/dL (7-18); BUN/Creat Ratio 38.5 RATIO (10-20); Calcium,Total 9.3 mg/dL (8.5-10.1); Chloride 104 mmol/L (98-107); Creatinine, Serum 1.69 mg/dL (0.70-1.30); EST Glomerular Filtration Rate 42 mL/min (>60); Est Glom Filt Rate - Afr Amer 50 mL/min (>60); Estimated Creatinine Clearance 38.74 ml/min; Globulin 5.1 g/dL (2.2-4.2); Glucose 123 mg/dL (74-106); Lipase 447 U/L (13-75); Potassium 4.5 mmol/L (3.5-5.1); Protein, Total 7.9 g/dL (6.4-8.2); Sodium Level 135 mmol/L (136-145)
[2023-08-28 14:43] LABS: Absolute Lymphocyte Count 0.35 X10^3/uL (0.83-4.51); Absolute Neutrophil Count 4.9 X10^3/uL (2.0-7.7); Basophil# 0.02 X10^3/uL; Basophil% 0.3 % (0-1); Eosinophil# 0.07 X10^3/uL; Eosinophils% 1.2 % (0-5); Hematocrit 36.2 % (40-54); Lymphocyte # 0.35 X10^3/ul (0.83-4.51); Lymphocyte % 5.8 % (19-41); Mean Corp Hgb Conc 33.1 g/dL (32-36); Mean Corpuscular Hgb 29.9 pg (27.0-32.0); Mean Platelet Vol. 10.5 fl (6.2-12.0); Monocyte# 0.66 X10^3/uL; Monocyte% 10.9 % (0-10); NRBC Flagged by Analyzer 0 % (0-5); Neutrophil # 4.91 X10^3/uL (2.7-7.7); Neutrophil % 81.1 % (47-70); Platelet Count 209 K/mm3 (150-450); RBC Distribution Width CV 15.9 % (11.6-14.6); RBC Distribution Width SD 52.3 fl (35.1-43.9); Red Blood Count 4.02 M/mm3 (4.6-6.2); White Blood Count 6.1 K/mm3 (4.4-11.0)
[2023-08-28 14:44] LABS: Differential Indicated SCAN CRITERIA MET
[2023-08-28 15:05] LABS: Differential Comment SCANNED
[2023-08-28 15:38] LABS: POSITIVE DIFFERENTIAL YES
[2023-08-28 15:42] VITALS: BP 136/98; PULSE 87; RESP 16; O2SAT 94
[2023-08-28 16:02] LABS: Bacteria 0 SEEN /hpf (None Seen); Mucous, Urine 0 SEEN /hpf (<or=2+); White Blood Cells 0 SEEN /hpf (0-5)
[2023-08-28 16:04] LABS: Color, Urine Yellow (Yellow); Glucose, Dipstick Normal (Normal); Ketone-Dipstick Negative (Negative); Leukocyte Esterase-Dipstick Negative /ul (Negative); Nitrite-Dipstick Negative (Negative); Occult Blood-Urine 10 /ul (Negative); Protein-Dipstick 15 mg/dl (Negative); Specific Gravity, Urine 1.015 (1.002-1.030); Urine Bilirubin Dipstick Negative (Negative); Urine Clarity Clear (Clear); Urine Urobilinogen Normal (Normal)
[2023-08-28 16:16] LABS: Red Blood Cells-Urine 0-5 SEEN /hpf (0-5); Squamous Epithelial Cells - UA 0-5 SEEN /hpf (0-5)
--- NOTE | 2023-08-28 17:14 | NURSING ---
DR JEANETTE WEBER
--- NOTE | 2023-08-28 17:20 | HP.PCM.HOS_ITS ---
HPI - General General Date of Admission: 08/28/23 Date of Service: 08/28/23 Chief Complaint: Abdominal pain that is started last night. HPI Narrative MADDI JAMESON, is a 83 M who came to ED for acute worsening of pain since last night. He describes abdominal pain in the central abdomen epigastric/umbilical with migration to flank, 6-8/10 intensity, episodic, intermittent with no precipitating, aggravating or relieving factor. Currently his abdominal pain has much improved but he still feels bloating and gas inside. He denies any prior history of pancreatitis. He has history of Ca larynx status post chemoradiation and he quit smoking and drinking about 20 years ago. Patient also had 2 times bilious vomiting. Patient is on tube feed through a PEG tube after cancer larynx and he states he is always bowel movements are liquid with no change recently. Denies hematochezia hematemesis or melena. Denies fever chills or acute URI symptoms but patient has mild chronic baseline cough. Patient has elevated lipase. CT abdomen individually reviewed and shows normal liver with GB surgically absent. Normal spleen and pancreas. Vitals, labs and imaging reviewed. In discussion assessment and plan. [facility] Medical History Alcohol abuse Alcohol use Arthritis Asymmetric septal hypertrophy Back pain Benign neoplasm of colon Bifascicular bundle branch block BPH (benign prostatic hypertrophy) Cancer Cardiology follow-up encounter Chest pain Chronic cough Chronic pain COPD (chronic obstructive pulmonary disease) CRF (chronic renal failure) Depression Difficulty chewing Dyspnea Former smoker Former smoker Gastric reflux GERD (gastroesophageal reflux disease) Grade I diastolic dysfunction Hiatal hernia History of echocardiogram History of hypertension History of malignant neoplasm of larynx History of pain when walking History of steroid therapy History of stress test Hoarseness Hypertension Hypertension Injury of head and neck Loss of consciousness Lumbar spinal stenosis Lung nodule, multiple Microscopic hematuria Nephrolithiasis Neuropathic pain Osteoarthritis of left knee Pharyngeal cancer Polycystic kidney disease Restenosis of arterial stent Rhinitis Shortness of breath on exertion Silent aspiration TIA (transient ischemic attack) Wears dentures Wears glasses Home Medications mirtazapine 15 mg tablet 15 mg feeding tube QHS sleep/appetite 05/28/22 [History Last Taken 06/30/22 20:14] aspirin 81 mg chewable tablet 324 mg G-tube DAILYCM blood thinner 06/11/22 [History Last Taken 08/28/23] fluticasone 232 mcg-salmeterol 14 mcg/actuation breath activated powdr 1 inh inhalation Q12 shortness of breath/wheezing 06/11/22 [History Last Taken 08/27/23] gabapentin 300 mg capsule 300 mg feeding tube TID nerve pain 07/01/22 [History Last Taken 08/28/23] acetylcysteine 200 mg/mL (20 %) solution 1,200 mg (6 mL) G-tube DAILY 30 days #180 mL 07/15/22 [Rx Last Taken Unknown] atorvastatin 80 mg tablet 80 mg G-tube QHS 30 days #30 tabs 07/15/22 [Rx Last Taken 08/27/23] midodrine 5 mg tablet 5 mg G-tube TID 30 days #90 tabs 07/15/22 [Rx Last Taken 08/28/23] nut.tx impaired digestive fxn-fiber 0.08 gram-1.2 kcal/mL oral liquid (Vital AF 1.2 Papito) 360 ml G-tube 0600,1000,1400,1800 30 days #43,200 mL 07/15/22 [Rx Last Taken Unknown] sertraline 50 mg tablet 50 mg G-tube DAILY 30 days #30 tabs 07/15/22 [Rx Last Taken 08/28/23] simethicone 40 mg/0.6 mL oral drops,suspension (Infants Simethicone) 80 mg (1.2 mL) G-tube Q6 30 days #144 mL 07/15/22 [Rx Last Taken Unknown] ursodiol 250 mg tablet 250 mg G-tube 0600,1200,1700 30 days #90 tabs 07/15/22 [Rx Last Taken 08/28/23] nut.tx impaired digestive fxn-fiber 0.08 gram-1.2 kcal/mL oral liquid (Vital AF 1.2 Papito) 360 ml G-tube 0600,1000,1400,1800 30 days #43,200 mL 07/23/22 [Rx Last Taken Unknown] omeprazole 40 mg capsule,delayed release 40 mg PO DAILY #30 caps 05/26/23 [Rx Last Taken Unknown] Allergy/AdvReac Type Severity Reaction Status Date / Time mold Allergy NEEDS Verified 08/28/23 13:43 FOLLOW-UP house dust AdvReac SNEEZING Verified 08/28/23 13:43 morphine AdvReac Vomiting Verified 08/28/23 13:43 poison kayleen extract AdvReac Rash Verified 08/28/23 13:43 Family History Mother CAD (coronary artery disease) Brother COPD (chronic obstructive pulmonary disease) Surgical History H/O hernia repair History of cardiac catheterization History of cholecystectomy History of esophageal dilatation History of heart artery stent History of laminectomy History of tonsillectomy Hx of colonoscopy Internal carotid artery stent present S/P total knee arthroplasty Spinal cord stimulator status Status post insertion of percutaneous endoscopic gastrostomy (PEG) tube Status post total left knee replacement Ureteral stent present Social History household members: none housing: house number of children: 0 current occupational status: retired Smoking Status: Former smoker Smokeless tobacco user: chewing tobacco and other how long ago did patient quit smokin alcohol intake: former substance use type: does not use ROS ROS Narrative Constitutional: Reports chronic fatigue and weakness. No fever. HEENT: Reports systems reviewed and no addt'l complaints, except as documented Respiratory/Chest: Mild chronic cough. No acute shortness of breath or respiratory distress or wheezing. CVS: No acute chest pain. Gastrointestinal: As described in HPI. Genitourinary: Denies burning urination or new urinary tract symptoms Musculoskeletal: Denies acute joint pain or limited range of motion. No acute injury Neurologic: Denies seizure-like symptoms. No acute or strokelike symptoms. skin: No ulcer. No rash Endocrinology: Reports systems reviewed and no addt'l complaints, except as documented Hematologic/Lymphatic: Reports systems reviewed and no addt'l complaints, except as documented Rest 14 ROS are negative except as mentioned in HPI Vital Signs Vital Signs Vital Signs: 08/28/23 13:43 Temperature 96.4 F L Temperature Source Temporal Pulse Rate 86 Respiratory Rate 20 H Blood Pressure 143/86 H Blood Pressure Mean 105 Pulse Ox 97 Oxygen Delivery Method Room Air Weight Weight: 190 lb 0.615 oz Body Mass Index (BMI) 25.0 Physical Exam Narrative General: Alert, Oriented x3, Cooperative HEENT: Atraumatic, PERRLA, EOMI, Normocephalic Oral: Oral mucosa dry. No Gingival or Mucosal Lesions/ Ulcerations Neck: Supple, No JVD, Negative Carotid Bruits Lungs: Air entry diminished in bilateral lung bases. No crepitation/rhonchi Cardiovascular: Regular rate, Regular Rhythm, Normal S1, Normal S2, No murmurs Abdomen: Bowel Sounds Present, Soft, mild gaseous distention. Status post PEG tube. Mild tenderness present around umbilical region. : No renal angle tenderness. No suprapubic tenderness. Extremities: No edema, Capillary Refill Less than 3 Seconds Skin: No rashes, No breakdown Musculoskeletal: No Tenderness to Palpation of Joints or Extremities. ROM intact. Neurological: Cranial nerves II-XII grossly intact, DTR 2+/4. No acute focal neurological deficit. Psych/Mental Status: Normal Affect, Appropriate. Results Lab / Micro Data 08/28/23 13:55 08/28/23 13:55 Labs: Laboratory Results - last 24 hr 08/28/23 13:55: WBC 6.1, RBC 4.02 L, Hgb 12.0 L, Hct 36.2 L, MCV 90.0, MCH 29.9, MCHC 33.1, RDW Std Deviation 52.3 H, RDW Coeff of [place] 15.9 H, Plt Count 209, MPV 10.5, Immature Gran % (Auto) 0.700, Neut % (Auto) 81.1 H, Lymph % (Auto) 5.8 L, [place] % (Auto) 10.9 H, Eos % (Auto) 1.2, Baso % (Auto) 0.3, Absolute Neuts (auto) 4.9, Absolute Lymphs (auto) 0.35 L, Nucleated RBC % 0, Differential Comment SCANNED, Sodium 135 L, Potassium 4.5, Chloride 104, Carbon Dioxide 25.0, Anion Gap 6, BUN 65 H, Creatinine 1.69 H, Estim Creat Clear Calc 38.74, Est GFR (MDRD) Af Amer 50 L, Est GFR (MDRD) Non-Af 42 L, BUN/Creatinine Ratio 38.5 H, Glucose 123 H, Calcium 9.3, Total Bilirubin 0.40, AST 45 H, ALT 30, Alkaline Phosphatase 62, Total Protein 7.9, Albumin 2.8 L, Globulin 5.1 H, Albumin/Globulin Ratio 0.5 L, Lipase 447 H 08/28/23 15:50: Urine Color Yellow, Urine Clarity Clear, Urine pH 6.0, Ur Specific [place] 1.015, Urine Protein 15 H, Urine Glucose (UA) Normal, Urine Ketones Negative, Urine Occult Blood 10 H, Urine Nitrite Negative, Urine Bilirubin Negative, Urine Urobilinogen Normal, Ur Leukocyte Esterase Negative, Urine RBC 0-5 SEEN, Urine WBC 0 SEEN, Ur Squamous Epith Cells 0-5 SEEN, Urine Bacteria 0 SEEN, Urine Mucus 0 SEEN Imagaing Radiology Impression Abdomen/Pelvis CT 08/28/23 14:03 IMPRESSION: Stable 4.6 cm infrarenal abdominal aortic aneurysm. Mild ileus or nonspecific diarrheal disease. Electronically Signed: Ivan Tovar MD at 16:44 EST , Assessment & Plan Assessment/Plan (1) Acute pancreatitis: PLAN: Plan This 83-year-old gentleman being admitted for acute abdominal pain and elevated lipase. 1. Acute abdominal pain suspected due to acute on recurrent pancreatitis/mild ileus: Although lipase is elevated but CT abdomen with oral and IV contrast shows normal pancreas. Lipase may be elevated from bowel or gallbladder patient is status postcholecystectomy and no acute change in bowel habit. Hematocrit 36%. No leukocytosis. No fever. AST 45 but normal ALT and alkaline phosphatase. Serum magnesium and phosphorus ordered. CRP ordered. IV fluid normal saline 150 mill per hour. Abdominal pain improving. Hold enteric feeding and if pain resolves, gradual tube feed from tomorrow. Maintain intake and output. The patient was last admitted in July 2022 for acute pancreatitis due to cholelithiasis and had ERCP and cholecystectomy. At that time ERCP showed biliary stricture defusing lower third of main duct and entire main duct was dilated. Choledocholithiasis complete removal was done. Temporary stent into the ventral pancreatic duct. 2. Mild hyponatremia: Serum sodium 135 otherwise normal electrolytes with anion gap 6. Monitor serum sodium. 3. CKD stage IIIb: Baseline creatinine runs around 1.5. Today of 65/1.69 elevated but does not meet the diagnosis of MAGDALENA. Continue IV fluid normal saline. UA shows protein 15 mild proteinuria. Benign microscopic study. 4. CA larynx status post chemoradiation, ex-smoker quit in 2002, COPD and bronchiectasis: The patient has chronic recurrent aspiration and dry mouth since treatment of laryngeal cancer. Patient follows [facility] oncologist Dr. Dr. Jordi Lacey last visit in July 2023 for lung nodules on the CT. 5.Anemia of chronic disease: H&H 12.30 6.2%. Platelet count in normal range 209,000. 6. History of CVA in May 2022: CTA of head and neck in 05/2022 showed left A1 segment occlusion and moderate stenosis of right ICA stent as well as possible focal dissection distal to the stent as well as moderate stenosis of left ICA and occlusion/near occlusion of proximal right vertebral artery. At that time patient was given tPA. Continue baby aspirin and statin when oral is allowed. 7. BPH: Continue Flomax. 8. Stable 4.6 infrarenal aortic aneurysm: CT abdomen/pelvis showed AAA unchanged. Calcified plaque and thrombus unchanged. DVT, high risk due to history of cancer and pancreatitis: Lovenox 40 mill subcu daily. Bilateral SCDs. Living will/advanced directive/end of life care: Patient does have living will or advanced directive. He is adopted son, Mr. Jesse MaceJr. is power of litigation attorney associate for health. After discussion of benefits/risks procedures involved with full code, DNR CC arrest and DNR CC, the patient in the first instance was not clear but he stated he wants to try first and if it is a reversible or terminal or prolonging on vent support he will choose DNR CC A but first want to be full code. Patient does want artificial life support including intubation, tube feed, ventilator and/chest compression, central venous catheter, vasopressor and DC shock if needed Total time spent in [id number] encounter in discussion of advanced directive 17 minutes. Laboratory Results 08/28/23 13:55: WBC 6.1, RBC 4.02 L, Hgb 12.0 L, Hct 36.2 L, MCV 90.0, MCH 29.9, MCHC 33.1, RDW Std Deviation 52.3 H, RDW Coeff of [place] 15.9 H, Plt Count 209, MPV 10.5, Immature Gran % (Auto) 0.700, Neut % (Auto) 81.1 H, Lymph % (Auto) 5.8 L, [place] % (Auto) 10.9 H, Eos % (Auto) 1.2, Baso % (Auto) 0.3, Absolute Neuts (auto) 4.9, Absolute Lymphs (auto) 0.35 L, Nucleated RBC % 0, Differential Comment SCANNED, Sodium 135 L, Potassium 4.5, Chloride 104, Carbon Dioxide 25.0, Anion Gap 6, BUN 65 H, Creatinine 1.69 H, Estim Creat Clear Calc 38.74, Est GFR (MDRD) Af Amer 50 L, Est GFR (MDRD) Non-Af 42 L, BUN/Creatinine Ratio 38.5 H, Glucose 123 H, Calcium 9.3, Total Bilirubin 0.40, AST 45 H, ALT 30, Alkaline Phosphatase 62, Total Protein 7.9, Albumin 2.8 L, Globulin 5.1 H, Albumin/Globulin Ratio 0.5 L, Lipase 447 H 08/28/23 15:50: Urine Color Yellow, Urine Clarity Clear, Urine pH 6.0, Ur Specific [place] 1.015, Urine Protein 15 H, Urine Glucose (UA) Normal, Urine Ketones Negative, Urine Occult Blood 10 H, Urine Nitrite Negative, Urine Bilirubin Negative, Urine Urobilinogen Normal, Ur Leukocyte Esterase Negative, Urine RBC 0-5 SEEN, Urine WBC 0 SEEN, Ur Squamous Epith Cells 0-5 SEEN, Urine Bacteria 0 SEEN, Urine Mucus 0 SEEN Clinical Impression(s) from Imaging Studies Abdomen/Pelvis CT 08/28/23 14:03 IMPRESSION: Stable 4.6 cm infrarenal abdominal aortic aneurysm. Mild ileus or nonspecific diarrheal disease. Charges/Coding Visit Charges Inpatient E&M: 64078 Init Hosp L3 Procedures Hospitalists Procedures: 28780 Advncd Care Plan 30 Min
--- NOTE | 2023-08-28 17:24 | NURSING ---
MED SURG JEANETTE ACUTE PANCREATITIS, CHRONIC KIDNEY DISEASE
[2023-08-28 17:30] VITALS: BP 136/89; PULSE 79; RESP 16; O2SAT 96
[2023-08-28 18:17] VITALS: BMI 25.0
[2023-08-28 18:22] VITALS: BP 150/101; PULSE 77; RESP 18; TEMP 36.6; O2SAT 98
[2023-08-28 18:27] LABS: Magnesium 1.9 mg/dL (1.6-2.6); Phosphorus 3.5 mg/dL (2.5-4.9)
[2023-08-28] MEDS: Pantoprazole Sodium 40 MG in 0.9% Normal Saline (100mL MB+) 100 ML 330 MG IV (19:41)
[2023-08-28] MEDS: 0.9% Normal Saline (1000mL) 1,000 ML 150 ML IV (19:41)
[2023-08-28] MEDS: Enoxaparin 40 MG/0.4 ML Syringe SC (19:43)
[2023-08-28 21:41] VITALS: BP 115/69; PULSE 78; RESP 16; TEMP 36.8; O2SAT 93
[2023-08-29 02:03] VITALS: BP 106/69; PULSE 81; RESP 16; TEMP 37; O2SAT 93
[2023-08-29] MEDS: HYDROmorphone Inj 0.2 MG/ML SYRINGE IV ×2 (02:04→23:47)
[2023-08-29] MEDS: 0.9% Normal Saline (1000mL) 1,000 ML 150 ML IV (02:07)
[2023-08-29 06:00] VITALS: BMI 25.2
[2023-08-29 06:08] LABS: Absolute Lymphocyte Count 0.46 X10^3/uL (0.83-4.51); Absolute Neutrophil Count 2.9 X10^3/uL (2.0-7.7); Basophil# 0.01 X10^3/uL; Basophil% 0.2 % (0-1); Eosinophil# 0.08 X10^3/uL; Hematocrit 32.5 % (40-54); Hemoglobin 10.4 g/dL (13.0-16.5); Lymphocyte # 0.46 X10^3/ul (0.83-4.51); Lymphocyte % 11.3 % (19-41); Mean Corpuscular Hgb 29.7 pg (27.0-32.0); Mean Corpuscular Volume 92.9 fL (80-94); Mean Platelet Vol. 10.8 fl (6.2-12.0); Monocyte# 0.59 X10^3/uL; Monocyte% 14.5 % (0-10); NRBC Flagged by Analyzer 0 % (0-5); Neutrophil # 2.89 X10^3/uL (2.7-7.7); Neutrophil % 71.3 % (47-70); POSITIVE DIFFERENTIAL YES; Platelet Count 186 K/mm3 (150-450); RBC Distribution Width CV 15.9 % (11.6-14.6); RBC Distribution Width SD 53.6 fl (35.1-43.9); White Blood Count 4.1 K/mm3 (4.4-11.0)
[2023-08-29 06:26] LABS: Differential Indicated SCAN CRITERIA MET
[2023-08-29 07:08] LABS: Differential Comment SCANNED
[2023-08-29 07:09] LABS: ALB/GLOB Ratio 0.6 RATIO (0.9-2.4); AST(SGOT) 39 U/L (15-37); Alanine Aminotransfer ALT/SGPT 25 U/L (16-61); Albumin, Serum 2.3 g/dL (3.2-5.0); Alkaline Phosphatase 45 U/L (45-117); Anion Gap 3 (5-15); BUN 50 mg/dL (7-18); BUN/Creat Ratio 31.8 RATIO (10-20); Calcium,Total 7.8 mg/dL (8.5-10.1); Chloride 111 mmol/L (98-107); Creatinine, Serum 1.57 mg/dL (0.70-1.30); EST Glomerular Filtration Rate 45 mL/min (>60); Est Glom Filt Rate - Afr Amer 55 mL/min (>60); Globulin 4.1 g/dL (2.2-4.2); Glucose 92 mg/dL (74-106); Potassium 4.3 mmol/L (3.5-5.1); Protein, Total 6.4 g/dL (6.4-8.2); Sodium Level 138 mmol/L (136-145)
[2023-08-29 08:00] VITALS: BP 157/71; PULSE 74; RESP 18; TEMP 36.6; O2SAT 97
[2023-08-29] MEDS: Pantoprazole Sodium 40 MG in 0.9% Normal Saline (100mL MB+) 100 ML 330 MG IV (08:31)
[2023-08-29] MEDS: HYDROmorphone 0.5 MG/0.5 ML SYRINGE IV (08:31)
[2023-08-29 08:56] LABS: Free T3 1.4 pg/mL (2.18-3.98); T4 Free Direct 0.49 ng/dL (0.76-1.46)
[2023-08-29] MEDS: proCHLORPERazine 10 MG/2 ML Vial 5 MG IV (11:15)
[2023-08-29] MEDS: 0.9% Saline Lock 10 ML Syringe IV ×2 (11:16→23:47)
[2023-08-29] MEDS: Acetylcysteine (Mucomyst Oral) 20% SOLN 1200 MG GT (11:17)
[2023-08-29] MEDS: Budesonide Respules 0.5 MG/2 ML AMPUL.NEB. INHALATION ×2 (13:16→19:55)
[2023-08-29] MEDS: Albuterol 2.5 MG/3 ML VIAL.NEB. INHALATION ×2 (13:16→19:55)
[2023-08-29 13:29] VITALS: PULSE 79; RESP 20
--- NOTE | 2023-08-29 13:37 | PN.HOSP_ITS ---
Reason for Visit Reason for Visit: Diagnoses Acute pancreatitis without necrosis or infection, unspecified (08/28/23) Subjective Subjective Patient seen at bedside this morning. Was sitting in bedside chair. Patient was nauseous on my arrival to the room and was holding a vomit bag. Patient stated he has felt nauseous since earlier this morning, did have an episode of small bowel vomitus earlier. He denies any significant abdominal pain or distention. He denies any fevers or chills. Denies any other pain or discomfort. No other acute concerns. Objective Data Objective Data Vital Signs: Vital Signs Temp Pulse Resp BP Pulse Ox O2 Del Method 97.8 F 79 20 H 157/71 H 97 Room Air 08/29/23 08:00 08/29/23 13:29 08/29/23 13:29 08/29/23 08:00 08/29/23 08:00 08/29/23 09:00 Oxygen Delivery Method Room Air Weight: 86.3 kg Body Mass Index (BMI) 25.2 Intake & Output: Intake and Output for Last 24 Hours 08/27/23 08/28/23 08/29/23 23:59 23:59 23:59 Intake Total 1110 / 1110 2175 / 2175 Balance 1110 / 1110 2175 / 2175 Lab / Micro Data 08/29/23 04:59 08/29/23 04:59 Labs: Laboratory Results - last 24 hr 08/28/23 13:55: WBC 6.1, RBC 4.02 L, Hgb 12.0 L, Hct 36.2 L, MCV 90.0, MCH 29.9, MCHC 33.1, RDW Std Deviation 52.3 H, RDW Coeff of [place] 15.9 H, Plt Count 209, MPV 10.5, Immature Gran % (Auto) 0.700, Neut % (Auto) 81.1 H, Lymph % (Auto) 5.8 L, [place] % (Auto) 10.9 H, Eos % (Auto) 1.2, Baso % (Auto) 0.3, Absolute Neuts (auto) 4.9, Absolute Lymphs (auto) 0.35 L, Nucleated RBC % 0, Differential Comment SCANNED, Sodium 135 L, Potassium 4.5, Chloride 104, Carbon Dioxide 25.0, Anion Gap 6, BUN 65 H, Creatinine 1.69 H, Estim Creat Clear Calc 38.74, Est GFR (MDRD) Af Amer 50 L, Est GFR (MDRD) Non-Af 42 L, BUN/Creatinine Ratio 38.5 H, Glucose 123 H, Calcium 9.3, Phosphorus 3.5, Magnesium 1.9, Total Bilirubin 0.40, AST 45 H, ALT 30, Alkaline Phosphatase 62, C-React Prot Ext Range 23.10 H, Total Protein 7.9, Albumin 2.8 L, Globulin 5.1 H, Albumin/Globulin Ratio 0.5 L, Lipase 447 H 08/28/23 15:50: Urine Color Yellow, Urine Clarity Clear, Urine pH 6.0, Ur Specific [place] 1.015, Urine Protein 15 H, Urine Glucose (UA) Normal, Urine Ketones Negative, Urine Occult Blood 10 H, Urine Nitrite Negative, Urine Bilirubin Negative, Urine Urobilinogen Normal, Ur Leukocyte Esterase Negative, Urine RBC 0-5 SEEN, Urine WBC 0 SEEN, Ur Squamous Epith Cells 0-5 SEEN, Urine Bacteria 0 SEEN, Urine Mucus 0 SEEN 08/29/23 04:59: WBC 4.1 L, RBC 3.50 L, Hgb 10.4 L, Hct 32.5 L, MCV 92.9, MCH 29.7, MCHC 32.0, RDW Std Deviation 53.6 H, RDW Coeff of [place] 15.9 H, Plt Count 186, MPV 10.8, Immature Gran % (Auto) 0.700, Neut % (Auto) 71.3 H, Lymph % (Auto) 11.3 L, [place] % (Auto) 14.5 H, Eos % (Auto) 2.0, Baso % (Auto) 0.2, Absolute Neuts (auto) 2.9, Absolute Lymphs (auto) 0.46 L, Nucleated RBC % 0, Differential Comment SCANNED, Diff Path Review January, Sodium 138, Potassium 4.3, Chloride 111 H, Carbon Dioxide 24.0, Anion Gap 3 L, BUN 50 H, Creatinine 1.57 H, Estim Creat Clear Calc 41.70, Est GFR (MDRD) Af Amer 55 L, Est GFR (MDRD) Non-Af 45 L, BUN/Creatinine Ratio 31.8 H, Glucose 92, Calcium 7.8 L, Total Bilirubin 0.10 L, AST 39 H, ALT 25, Alkaline Phosphatase 45, Total Protein 6.4, Albumin 2.3 L, Globulin 4.1, Albumin/Globulin Ratio 0.6 L, TSH 133.00 H, Free T4 0.49 L, Free T3 pg/dL 1.4 L Radiography Diagnostic Testing: Radiology Impression Abdomen/Pelvis CT 08/28/23 14:03 IMPRESSION: Stable 4.6 cm infrarenal abdominal aortic aneurysm. Mild ileus or nonspecific diarrheal disease. Electronically Signed: Ivan Tovar MD at 16:44 EST , Physical Exam Const alert Constitutional Narrative: Elderly male, appeared quite nauseous with vomitus bag in hand, sitting in bedside chair, conversing normally. General Appearance: cooperative HEENT normocephalic, head/scalp atraumatic, hearing grossly normal bilaterally, nasal mucous membranes and turbinates normal and moist oral mucous membranes Eyes PERRL, EOMs intact bilaterally and conjunctivae normal Neck full ROM, no lymphadenopathy and supple Lymph Lymphatic: no lymphadenopathy noted Chest inspection of chest normal Resp normal respiratory effort, normal air movement, no use of accessory muscles and clear to auscultation bilaterally Cardio regular rate, regular rhythm, no murmurs and peripheral pulses 2+ throughout GI GI Narrative: Mild distention, mild tenderness to palpation in umbilical and epigastric area. Soft to palpation. Back/Spine normal ROM Extremity normal to inspection, full ROM and no pedal edema Skin no rashes or lesions noted Neuro moves all extremities and no focal motor deficits Speech: speech normal Psych mental status grossly normal Assessment & Plan Assessment/Plan (1) Abdominal pain: PLAN: Plan Patient is an 83-year-old male who presented to [facility] ED on 08/29/2023 with worsening abdominal pain. 1. Abdominal pain, concern for pancreatitis, history of pancreatitis due to cholelithiasis Patient was hospitalized in 07/2022 for acute pancreatitis due to cholelithiasis, had ERCP and cholecystectomy done at that time. 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 No recurrence of issues until this point. Presented with abdominal pain and nausea/vomiting. Lipase 477 on admit. However, CT abdomen pelvis with oral and IV contrast showed normal pancreas. ? Continue maintenance IV fluids for now. Will restart home tube feeds at slow rate today, increase as tolerated. IV Zofran as needed for nausea. Low-dose IV Dilaudid as needed for pain. 2. History of cancer of the larynx s/p chemoradiation Follows with Dr. Lacey with oncology, last office visit on 07/28/2023. Melissa jones with combined chemoradiation at [facility] in 2008 with no recurrence. Notably is G-tube feeds dependent and has chronic recurrent aspirations and dry mouth since the treatment of his laryngeal cancer. ? Restarting tube feeds at lower rate today as noted above. Increase slowly, monitor for signs of aspiration. Chronic medical conditions: ? CKD stage IIIb: Baseline creatinine around 1.5. Creatinine at baseline on admit, monitor. ? Anemia of chronic disease: Hemoglobin at baseline, monitor. ? History of CVA in 05/2022: Received tPA at that time. No significant residual deficits. Continue home baby aspirin and statin. ? BPH: Continue home Flomax. ? Stable 4.6 cm infrarenal aortic aneurysm: CT abdomen pelvis on admit showed unchanged. Continue outpatient follow-up. DVT prophylaxis: Lovenox CODE STATUS: Full code, verified Expected disposition: Home, 2 to 3 days Total clinical time spent by myself addressing the patient's medical issues, reviewing all the data, and collaborating with patient's care team: 35 minutes. Charges/Coding Visit Charges Inpatient E&M: 96706 Subs Hosp L2
[2023-08-29] MEDS: Enoxaparin 40 MG/0.4 ML Syringe SC (13:40)
[2023-08-29] MEDS: Gabapentin 300 MG Capsule GT ×2 (13:41→23:08)
[2023-08-29] MEDS: Ursodiol 250 MG Tablet GT ×2 (13:41→18:21)
[2023-08-29] MEDS: Midodrine HCl 5 MG Tablet GT ×2 (13:41→18:20)
[2023-08-29 16:12] VITALS: BP 169/97; PULSE 78; RESP 18; TEMP 36.6; O2SAT 995
[2023-08-29] MEDS: Vital AF 1.2 Cal Liq 1,500 ML GT ×2 (18:21→23:08)
[2023-08-29 19:56] VITALS: PULSE 77; RESP 16
[2023-08-29 23:00] VITALS: BP 149/84; PULSE 74; RESP 16; TEMP 36.6; O2SAT 93
[2023-08-29] MEDS: Atorvastatin Calcium 80 MG Tablet GT (23:08)
[2023-08-30 04:36] LABS: ALB/GLOB Ratio 0.6 RATIO (0.9-2.4); AST(SGOT) 47 U/L (15-37); Alanine Aminotransfer ALT/SGPT 26 U/L (16-61); Albumin, Serum 2.5 g/dL (3.2-5.0); Alkaline Phosphatase 46 U/L (45-117); Anion Gap 7 (5-15); BUN 42 mg/dL (7-18); BUN/Creat Ratio 27.3 RATIO (10-20); Chloride 111 mmol/L (98-107); Creatinine, Serum 1.54 mg/dL (0.70-1.30); EST Glomerular Filtration Rate 46 mL/min (>60); Est Glom Filt Rate - Afr Amer 56 mL/min (>60); Estimated Creatinine Clearance 42.52 ml/min; Globulin 4.1 g/dL (2.2-4.2); Glucose 87 mg/dL (74-106); Potassium 4.2 mmol/L (3.5-5.1); Protein, Total 6.6 g/dL (6.4-8.2); Sodium Level 142 mmol/L (136-145)
[2023-08-30 05:56] VITALS: O2SAT 86
[2023-08-30] MEDS: Gabapentin 300 MG Capsule GT ×2 (05:58→14:09)
[2023-08-30] MEDS: Ursodiol 250 MG Tablet GT ×2 (05:58→12:52)
[2023-08-30] MEDS: Vital AF 1.2 Cal Liq 1,500 ML GT ×3 (05:59→14:09)
[2023-08-30 06:00] VITALS: BMI 24.4
[2023-08-30 06:24] VITALS: BP 105/67; PULSE 81; RESP 16; TEMP 36.7; O2SAT 94
[2023-08-30 08:00] VITALS: BP 134/77; PULSE 81; RESP 18; TEMP 36.9; O2SAT 95
--- NOTE | 2023-08-30 08:09 | PN.HOSP_ITS ---
Subjective Subjective Feels better. Tolerating tube feeds. Has not had any flatus as he does not want to shit myself. States that his abdomen varies from abdominal distention to no distention normally. Does not feel that his abdominal distention currently is out of the norm. Objective Data Objective Data Vital Signs: Vital Signs Temp Pulse Resp BP Pulse Ox O2 Del Method O2 Flow Rate 36.7 C 81 16 105/67 94 Nasal Cannula 2 08/30/23 06:24 08/30/23 06:24 08/30/23 06:24 08/30/23 06:24 08/30/23 06:24 08/30/23 06:24 08/30/23 06:24 Oxygen Flow Rate (L/min) 2 Oxygen Delivery Method Nasal Cannula Weight: 83.6 kg Body Mass Index (BMI) 24.4 Intake & Output: Intake and Output for Last 24 Hours 08/28/23 08/29/23 08/30/23 23:59 23:59 23:59 Intake Total 1110 / 1110 2275 / 2475 400 / 400 Balance 1110 / 1110 2275 / 2475 400 / 400 Lab / Micro Data 08/29/23 04:59 08/30/23 03:20 Labs: Laboratory Results - last 24 hr 08/29/23 04:59: Free T4 0.49 L, Free T3 pg/dL 1.4 L 08/30/23 03:20: Sodium 142, Potassium 4.2, Chloride 111 H, Carbon Dioxide 24.0, Anion Gap 7, BUN 42 H, Creatinine 1.54 H, Estim Creat Clear Calc 42.52, Est GFR (MDRD) Af Amer 56 L, Est GFR (MDRD) Non-Af 46 L, BUN/Creatinine Ratio 27.3 H, Glucose 87, Calcium 8.0 L, Total Bilirubin 0.20, AST 47 H, ALT 26, Alkaline Phosphatase 46, Total Protein 6.6, Albumin 2.5 L, Globulin 4.1, Albumin/Globulin Ratio 0.6 L Physical Exam Const alert and no apparent distress GI GI Narrative: Distended. Nontender. Assessment & Plan Assessment/Plan (1) Abdominal pain: PLAN: Plan Abdominal pain * Secondary to ileus and not pancreatitis. CT showed mild ileus or non-specific diarrheal disease * Patient was hospitalized in 07/2022 for acute pancreatitis due to cholelithiasis, had ERCP and cholecystectomy done at that time. 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 No recurrence of issues until this point. Presented with abdominal pain and nausea/vomiting. Lipase 477 on admit. However, CT abdomen pelvis with oral and IV contrast showed normal pancreas. * Continue maintenance IV fluids for now. Will restart home tube feeds at slow rate today, increase as tolerated. IV Zofran as needed for nausea. Low-dose IV Dilaudid as needed for pain. History of cancer of the larynx s/p chemoradiation * Follows with Dr. Lacey with oncology, last office visit on 07/28/2023. Treated with combined chemoradiation at [facility] in 2008 with no recurrence. Notably is G-tube feeds dependent and has chronic recurrent aspirations and dry mouth since the treatment of his laryngeal cancer. * Restarting tube feeds at lower rate today as noted above. Increase slowly, monitor for signs of aspiration. Hypothyroidism: * TSH 133, Free T4 low at 0.4 * start levothyroxine Chronic medical conditions: ? CKD stage IIIb: Baseline creatinine around 1.5. Creatinine at baseline on admit, monitor. ? Anemia of chronic disease: Hemoglobin at baseline, monitor. ? History of CVA in 05/2022: Received tPA at that time. No significant residual deficits. Continue home baby aspirin and statin. ? BPH: Continue home Flomax. ? Stable 4.6 cm infrarenal aortic aneurysm: CT abdomen pelvis on admit showed unchanged. Continue outpatient follow-up. DVT prophylaxis: Lovenox CODE STATUS: Full code, verified Expected disposition: [place] home. Patient refuses use a walker.
[2023-08-30] MEDS: Acetylcysteine (Mucomyst Oral) 20% SOLN 1200 MG GT (08:44)
[2023-08-30] MEDS: Levothyroxine 50 MCG Tablet GT (08:44)
[2023-08-30] MEDS: Enoxaparin 40 MG/0.4 ML Syringe SC (08:45)
[2023-08-30] MEDS: Aspirin 81 MG TAB.CHEW 324 MG GT (08:45)
[2023-08-30] MEDS: Midodrine HCl 5 MG Tablet GT ×2 (08:46→12:52)
[2023-08-30] MEDS: Pantoprazole Sodium 40 MG in 0.9% Normal Saline (100mL MB+) 100 ML 330 MG IV (08:57)
--- NOTE | 2023-08-30 12:03 | DS.PCM_ITS ---
Providers Date of Admission: 08/28/23 Primary Care Physician: Dr. Anderson Crowley MD Reason For Visit: ACUTE PANCREATITIS Diagnosis Discharge Diagnosis (1) Abdominal pain: Status: Acute Code(s): R10.9 - Unspecified abdominal pain Plan Abdominal pain * Secondary to ileus and not pancreatitis. CT showed mild ileus or non-specific diarrheal disease * Patient was hospitalized in 07/2022 for acute pancreatitis due to cholelithiasis, had ERCP and cholecystectomy done at that time. 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 No recurrence of issues until this point. Presented with abdominal pain and nausea/vomiting. Lipase 477 on admit. However, CT abdomen pelvis with oral and IV contrast showed normal pancreas. * Continue maintenance IV fluids for now. Will restart home tube feeds at slow rate today, increase as tolerated. IV Zofran as needed for nausea. Low-dose IV Dilaudid as needed for pain. History of cancer of the larynx s/p chemoradiation * Follows with Dr. Lacey with oncology, last office visit on 07/28/2023. Treated with combined chemoradiation at [facility] in 2008 with no recurrence. Notably is G-tube feeds dependent and has chronic recurrent aspirations and dry mouth since the treatment of his laryngeal cancer. * Restarting tube feeds at lower rate today as noted above. Increase slowly, monitor for signs of aspiration. Hypothyroidism: * TSH 133, Free T4 low at 0.4 * start levothyroxine Chronic medical conditions: ? CKD stage IIIb: Baseline creatinine around 1.5. Creatinine at baseline on admit, monitor. ? Anemia of chronic disease: Hemoglobin at baseline, monitor. ? History of CVA in 05/2022: Received tPA at that time. No significant residual deficits. Continue home baby aspirin and statin. ? BPH: Continue home Flomax. ? Stable 4.6 cm infrarenal aortic aneurysm: CT abdomen pelvis on admit showed unchanged. Continue outpatient follow-up. DVT prophylaxis: Lovenox CODE STATUS: Full code, verified Expected disposition: [place] home. Patient refuses use a walker. Medications at Discharge Home Medications mirtazapine 15 mg tablet 15 mg feeding tube QHS sleep/appetite 05/28/22 aspirin 81 mg chewable tablet 324 mg G-tube DAILYCM blood thinner 06/11/22 fluticasone 232 mcg-salmeterol 14 mcg/actuation breath activated powdr 1 inh inhalation Q12 shortness of breath/wheezing 06/11/22 gabapentin 300 mg capsule 300 mg feeding tube TID nerve pain 07/01/22 acetylcysteine 200 mg/mL (20 %) solution 1,200 mg (6 mL) G-tube DAILY 30 days #180 mL 07/15/22 atorvastatin 80 mg tablet 80 mg G-tube QHS 30 days #30 tabs 07/15/22 midodrine 5 mg tablet 5 mg G-tube TID 30 days #90 tabs 07/15/22 nut.tx impaired digestive fxn-fiber 0.08 gram-1.2 kcal/mL oral liquid (Vital AF 1.2 Papito) 360 ml G-tube 0600,1000,1400,1800 30 days #43,200 mL 07/15/22 sertraline 50 mg tablet 50 mg G-tube DAILY 30 days #30 tabs 07/15/22 simethicone 40 mg/0.6 mL oral drops,suspension (Infants Simethicone) 80 mg (1.2 mL) G-tube Q6 30 days #144 mL 07/15/22 ursodiol 250 mg tablet 250 mg G-tube 0600,1200,1700 30 days #90 tabs 07/15/22 nut.tx impaired digestive fxn-fiber 0.08 gram-1.2 kcal/mL oral liquid (Vital AF 1.2 Papito) 360 ml G-tube 0600,1000,1400,1800 30 days #43,200 mL 07/23/22 omeprazole 40 mg capsule,delayed release 40 mg PO DAILY #30 caps 05/26/23 levothyroxine 50 mcg tablet 50 mcg G-tube DAILY@0600 #30 tabs 08/30/23 Hospital Course Operations None Procedures None Summary of Care Provided Minutes Spent on Discharge: 32 Hospital Course: Presents with abdominal pain. Drury to be related with pancreatitis the patient recently underwent went pancreatitis. Seen more likely an ileus as CAT scan showed an ileus. Patient slowly been advanced on his tube feeds and is tolerating that well. Patient advised that this ileus could recur but if he is having abdominal pain that may not necessarily mean he is having ileus but could be another etiology and advised to return if he is having worsening abdominal pain. Weight / BMI Weight Weight: 83.6 kg Body Mass Index (BMI) 24.4 ABG / Lab / Microbiology Data 08/29/23 04:59 08/30/23 03:20 Laboratory: Laboratory Results - last 24 hr 08/30/23 03:20: Sodium 142, Potassium 4.2, Chloride 111 H, Carbon Dioxide 24.0, Anion Gap 7, BUN 42 H, Creatinine 1.54 H, Estim Creat Clear Calc 42.52, Est GFR (MDRD) Af Amer 56 L, Est GFR (MDRD) Non-Af 46 L, BUN/Creatinine Ratio 27.3 H, Glucose 87, Calcium 8.0 L, Total Bilirubin 0.20, AST 47 H, ALT 26, Alkaline Phosphatase 46, Total Protein 6.6, Albumin 2.5 L, Globulin 4.1, Albumin/Globulin Ratio 0.6 L D/C Instructions Discharge Diet: - (Continue with tube feeds as previously instructed.) Call your doctor if you observe: - (Worsening abdominal pain and distention.) Meaningful Use Info Meaningful Use Diagnoses (Choose all that apply): None applicable Discharge Plan Admission Admit Date/Time: 08/28/23 17:15 Primary Reason for Your Visit: Ileus Attending Provider: Yousif Hodgson Primary Care Provider: Anderson Crowley Consulting Providers: Bari Geronimo; aTd Arnett Instructions Additional Instructions / Restrictions: You had abdominal pain secondary to what appears to be an ileus, this is an area of stunned bowel that does not work in sync with the rest of bowel and can lead to abdominal distention and pain. These tend to be self-limiting and resolve on their own. If you do have worsening abdominal pain and distention is possible this could be the case but if it is very severe please return to the emergency room for evaluation. We also found out that you have an underactive thyroid and I have written a prescription for you to take Synthroid (levothyroxine) daily. Discharge Orders/Prescriptions Prescriptions: New levothyroxine 50 mcg Tablet 50 mcg G-tube DAILY@0600 Qty: 30 0RF Continued mirtazapine 15 MG tablet 15 mg feeding tube QHS Hold Instructions: Ordered aspirin 81 mg tablet,chewable 324 mg G-tube DAILYCM fluticasone propion-salmeterol 232-14 mcg/actuation aerosol powdr breath activated 1 inh inhalation Q12 gabapentin 300 mg capsule 300 mg feeding tube TID acetylcysteine 200 mg/mL (20 %) Solution 1,200 mg G-tube DAILY 30 Days Qty: 180 0RF atorvastatin 80 mg Tablet 80 mg G-tube QHS 30 Days Qty: 30 0RF midodrine 5 mg Tablet 5 mg G-tube TID 30 Days Qty: 90 0RF ursodiol 250 mg Tablet 250 mg G-tube 0600,1200,1700 30 Days Qty: 90 0RF simethicone [Infants Simethicone] 40 mg/0.6 mL Drops,Suspension 80 mg G-tube Q6 30 Days Qty: 144 0RF sertraline 50 mg Tablet 50 mg G-tube DAILY 30 Days Qty: 30 0RF Vital AF 1.2 Papito 0.08 gram- 1.2 kcal/mL Liquid 360 ml G-tube 0600,1000,1400,1800 30 Days Qty: 65524 0RF Vital AF 1.2 Papito 0.08 gram- 1.2 kcal/mL Liquid 360 ml G-tube 0600,1000,1400,1800 30 Days Qty: 64851 0RF omeprazole 40 mg capsule,delayed release(DR/EC) 40 mg PO DAILY Qty: 30 0RF Hold Instructions: MD Ordered Referrals / Follow Up: Anderson Crowley MD [Primary Care Provider] - Within 2 Weeks Disposition Disposition (needs filled in before D/C Order can be placed): Home, Self Care Charges/Coding Visit Charges Inpatient E&M: 15276 Disch Hosp >30min
--- NOTE | 2023-08-30 12:10 | CASEMGMT ---
CHAVEZ OSEGUERA Assessment: Face to Face with pt for initial transition planning/care coordination assessment. RN OUMAR introduced self and role at [facility], pt voices understanding and consents to assessment. Pt sitting up in chair at bedside. No visitors.Pt is A&O x3 and answers all questions appropriately at this time. Care providers, pharmacy, and demographics verified/updated. Admitting Dx:acute pancreatitis PCP:Anderson Crowley Specialists:Dr. Wilson-cardiology, Dr. Jordi Barrow- oncologist Preferred Pharmacy:[facility] Insurance:Medicare Part A and B Prescription Benefit: states after 09/13/23, changing insurance to [employer] LNOK:Jesse CazaresJr jeremy friend that he refers to as adopted son. Living Arrangements: Pt lives alone. Pt lives in 2 story kori with 3 steps with railing to enter. Patient was independent with ADLs prior to admission. Pt independent with PEG feedings. Transportation: Pt drives self and denies concerns with transportation. DME:Pt had walker in room that he does not use. Pt with cane at home. Pt orders feeding supplies on own. HHC/SNF:Pt used [facility] in past. No SNF. Pt states no concerns with going home at time of dc. Pt states no further concerns/needs. CM to follow. Advised pt to ask CM if any further question/concerns/needs arise, voices understanding. Pt Goal:To return home, denied need for walker. Plan:To return home
--- NOTE | 2023-08-30 12:57 | PHA.DC_ITS ---
Pharmacy [facility] Service has performed discharge medication reconciliation and counseling for this patient. The patient's discharge medication list was reviewed for discrepancies and discrepancies were resolved. The patient was counseled on the following discharge medications and changes in medications for homegoing were reviewed. The Reason for Use, instructions for use, and potential side effects were reviewed for all new medications. The patient's questions regarding all of their medications were answered. 1. Levothyroxine 50 mcg PO daily The patient was able to verbally demonstrate an understanding of their discharge medications. Medications at Discharge Home Medications mirtazapine 15 mg tablet 15 mg feeding tube QHS sleep/appetite 05/28/22 aspirin 81 mg chewable tablet 324 mg G-tube DAILYCM blood thinner 06/11/22 fluticasone 232 mcg-salmeterol 14 mcg/actuation breath activated powdr 1 inh inhalation Q12 shortness of breath/wheezing 06/11/22 gabapentin 300 mg capsule 300 mg feeding tube TID nerve pain 07/01/22 acetylcysteine 200 mg/mL (20 %) solution 1,200 mg (6 mL) G-tube DAILY 30 days #180 mL 07/15/22 atorvastatin 80 mg tablet 80 mg G-tube QHS 30 days #30 tabs 07/15/22 midodrine 5 mg tablet 5 mg G-tube TID 30 days #90 tabs 07/15/22 nut.tx impaired digestive fxn-fiber 0.08 gram-1.2 kcal/mL oral liquid (Vital AF 1.2 Papito) 360 ml G-tube 0600,1000,1400,1800 30 days #43,200 mL 07/15/22 sertraline 50 mg tablet 50 mg G-tube DAILY 30 days #30 tabs 07/15/22 simethicone 40 mg/0.6 mL oral drops,suspension (Infants Simethicone) 80 mg (1.2 mL) G-tube Q6 30 days #144 mL 07/15/22 ursodiol 250 mg tablet 250 mg G-tube 0600,1200,1700 30 days #90 tabs 07/15/22 nut.tx impaired digestive fxn-fiber 0.08 gram-1.2 kcal/mL oral liquid (Vital AF 1.2 Papito) 360 ml G-tube 0600,1000,1400,1800 30 days #43,200 mL 07/23/22 omeprazole 40 mg capsule,delayed release 40 mg PO DAILY #30 caps 05/26/23 levothyroxine 50 mcg tablet 50 mcg G-tube DAILY@0600 #30 tabs 08/30/23
[2023-08-30 13:29] LABS: Pathologist Review Reviewed
[2023-08-30 14:32] VITALS: BP 146/73; PULSE 66; RESP 18; TEMP 37.2; O2SAT 93
== END 2023-08-30 14:34 | disposition home or self-care (01) | DRG 389 ==
LOC: ED 17:18 → MS3 17:41
PROVIDERS: Hospitalist; Admitting Provider Internal Medicine; Emergency Provider Emergency Medicine; PCP Family Medicine
DX: K56.7 Ileus, unspecified (principal); E87.1 Hypo-osmolality and hyponatremia; D63.1 Anemia in chronic kidney disease; J44.9 Chronic obstructive pulmonary disease, unspecified; N18.32 Chronic kidney disease, stage 3b; I71.43 Infrarenal abdominal aortic aneurysm, without rupture; Z93.1 Gastrostomy status; I12.9 Hypertensive chronic kidney disease with stage 1 through stage 4 chronic kidney disease, or unspecified chronic kidney disease; E03.9 Hypothyroidism, unspecified; N40.0 Benign prostatic hyperplasia without lower urinary tract symptoms; Z90.49 Acquired absence of other specified parts of digestive tract; Z79.82 Long term (current) use of aspirin; Z79.899 Other long term (current) drug therapy; Z85.21 Personal history of malignant neoplasm of larynx; Z86.73 Personal history of transient ischemic attack (TIA), and cerebral infarction without residual deficits; Z87.891 Personal history of nicotine dependence
CPT/HCPCS: 36415; 74177; 80053; 81001; 83690; 83735; 84100; 84439; 84443; 84481; 85025; 86140; 94640; 94668; 97116; 97162; 97166; 97530; 97802; 99252; 99283; J7030; Q9967; A4216; G0463; J2405

== ENCOUNTER 2023-09-26 23:43 | Emergency (ER) | payer MEDICARE, OTHER, SELFPAY ==
[2023-09-26 23:45] VITALS: BP 170/118; PULSE 106; RESP 12; TEMP 36.4; O2SAT 96; BMI 21.5
--- NOTE | 2023-09-26 23:59 | ED.VIS.GI ---
HPI HPI - GI History of Present Illness Chief Complaint: Nausea/Vomiting/Diarrhea Informant: patient Abdominal Pain/Flank Pain Onset: Yesterday Context: Gradual Onset Timing: Continuous Quality: Cramping Location: RLQ and LLQ Worsened by: Nothing Relieved by: Nothing Nausea/Vomiting/Emesis GI Symptom: Positive for Nausea and Vomiting Onset: Yesterday Quality: Positive for Nonbilious; Negative for Blood streaks, Coffee ground or Hematemesis Diarrhea/Melena/Hematochezia GI Symptom: Positive for Diarrhea; Negative for Melena or Hematochezia Onset: Yesterday Associated Symptoms Associated Symptoms: Negative for Dysuria, Frequency or Hematuria Narrative Narrative: Presents with abdominal pain, nausea, and vomiting that began yesterday. Patient states it has been constant for the past 24 hours. Patient denies any hematemesis or coffee-ground emesis. Patient states his pain is mainly over the lower abdomen. Patient describes it as cramping. Patient states it has been constant. Patient notes to some diarrhea but denies any melena or hematochezia. Patient denies any dysuria, frequency, or hematuria. Patient denies any fevers or chills. [facility] Medical History Alcohol abuse Alcohol use Arthritis Asymmetric septal hypertrophy Back pain Benign neoplasm of colon Bifascicular bundle branch block BPH (benign prostatic hypertrophy) Cancer Cardiology follow-up encounter Chest pain Chronic cough Chronic pain COPD (chronic obstructive pulmonary disease) CRF (chronic renal failure) Depression Difficulty chewing Dyspnea Former smoker Former smoker Gastric reflux GERD (gastroesophageal reflux disease) Grade I diastolic dysfunction Hiatal hernia History of echocardiogram History of hypertension History of malignant neoplasm of larynx History of pain when walking History of steroid therapy History of stress test Hoarseness Hypertension Hypertension Injury of head and neck Loss of consciousness Lumbar spinal stenosis Lung nodule, multiple Microscopic hematuria Nephrolithiasis Neuropathic pain Osteoarthritis of left knee Pharyngeal cancer Polycystic kidney disease Restenosis of arterial stent Rhinitis Shortness of breath on exertion Silent aspiration TIA (transient ischemic attack) Wears dentures Wears glasses Home Medications aspirin 81 mg chewable tablet 324 mg G-tube DAILYCM blood thinner 06/11/22 [History Last Taken 08/28/23] fluticasone 232 mcg-salmeterol 14 mcg/actuation breath activated powdr 1 inh inhalation Q12 shortness of breath/wheezing 06/11/22 [History Last Taken 08/27/23] gabapentin 300 mg capsule 300 mg feeding tube TID nerve pain 07/01/22 [History Last Taken 08/28/23] acetylcysteine 200 mg/mL (20 %) solution 1,200 mg (6 mL) G-tube DAILY 30 days #180 mL 07/15/22 [Rx Last Taken Unknown] atorvastatin 80 mg tablet 80 mg G-tube QHS 30 days #30 tabs 07/15/22 [Rx Last Taken 08/27/23] midodrine 5 mg tablet 5 mg G-tube TID 30 days #90 tabs 07/15/22 [Rx Last Taken 08/28/23] nut.tx impaired digestive fxn-fiber 0.08 gram-1.2 kcal/mL oral liquid (Vital AF 1.2 Papito) 360 ml G-tube 0600,1000,1400,1800 30 days #43,200 mL 07/15/22 [Rx Last Taken Unknown] sertraline 50 mg tablet 50 mg G-tube DAILY 30 days #30 tabs 07/15/22 [Rx Last Taken 08/28/23] simethicone 40 mg/0.6 mL oral drops,suspension (Infants Simethicone) 80 mg (1.2 mL) G-tube Q6 30 days #144 mL 07/15/22 [Rx Last Taken Unknown] ursodiol 250 mg tablet 250 mg G-tube 0600,1200,1700 30 days #90 tabs 07/15/22 [Rx Last Taken 08/28/23] nut.tx impaired digestive fxn-fiber 0.08 gram-1.2 kcal/mL oral liquid (Vital AF 1.2 Papito) 360 ml G-tube 0600,1000,1400,1800 30 days #43,200 mL 07/23/22 [Rx Last Taken Unknown] omeprazole 40 mg capsule,delayed release 40 mg PO DAILY #30 caps 05/26/23 [Rx Last Taken Unknown] levothyroxine 50 mcg tablet 50 mcg G-tube DAILY@0600 #30 tabs 08/30/23 [Rx Last Taken Unknown] Allergy/AdvReac Type Severity Reaction Status Date / Time mold Allergy NEEDS Verified 09/26/23 23:44 FOLLOW-UP house dust AdvReac SNEEZING Verified 09/26/23 23:44 morphine AdvReac Vomiting Verified 09/26/23 23:44 poison kayleen extract AdvReac Rash Verified 09/26/23 23:44 Family History Mother CAD (coronary artery disease) Brother COPD (chronic obstructive pulmonary disease) Surgical History H/O hernia repair History of cardiac catheterization History of cholecystectomy History of esophageal dilatation History of heart artery stent History of laminectomy History of tonsillectomy Hx of colonoscopy Internal carotid artery stent present S/P total knee arthroplasty Spinal cord stimulator status Status post insertion of percutaneous endoscopic gastrostomy (PEG) tube Status post total left knee replacement Ureteral stent present Social History household members: none housing: house number of children: 0 current occupational status: retired Smoking Status: Former smoker Smokeless tobacco user: chewing tobacco and other how long ago did patient quit smokin alcohol intake: former substance use type: does not use ROS ROS ED Constitutional Constitutional ED: Denies chills or fever(s) Eyes Eyes: Denies blurry vision or change in vision ENT ENT ED: Denies rhinorrhea or sore throat Cardiovascular Cardiovascular: Denies chest pain or palpitations Respiratory/Chest Respiratory/Chest: Denies cough or dyspnea Gastrointestinal Gastrointestinal: Reports abdominal pain, diarrhea, nausea and vomiting; Denies melena Genitourinary Genitourinary ED: Denies dysuria or hematuria Musculoskeletal Musculoskeletal: Denies back pain or neck pain Integumentary Denies abscess or rash Neurologic Neurologic: Denies headache(s) or weakness Allergic/Immunologic Allergic/Immunologic ED: Denies mouth swelling or urticaria EXAM Physical Exam Const Vital Signs: 09/26/23 23:45 09/27/23 00:28 Temperature 97.6 F L Temperature Source Oral Pulse Rate 106 H 84 Respiratory Rate 12 13 Blood Pressure 170/118 H 116/86 H Blood Pressure Mean 135 96 Pulse Ox 96 96 Oxygen Delivery Method Room Air Room Air Positive well nourished and well developed General Appearance ED: well developed and NAD HEENT Reports moist mucous membranes Neck supple and no JVD Resp normal respiratory effort and clear to auscultation bilaterally Cardio regular rate and regular rhythm GI non-distended Palpation: soft and tender epigastric, LLQ, RLQ, LUQ, RUQ, periumbilical and suprapubic; Negative for guarding or rebound tenderness present Extremity full ROM General Extremety ED: Negative for tenderness Neuro CN's II-XII intact bilaterally, moves all extremities and no sensory deficits noted Sensorium / Orientation: alert Motor Exam: strength 5/5 throughout Psych mental status grossly normal and thought process normal MDM MDM MDM Narrative Medical decision making narrative: Differential diagnosis includes bowel obstruction, perforation, gastroenteritis, colitis, pancreatitis, urinary tract infection, ureteral calculus, and diverticulitis. CBC will be obtained to assess for leukocytosis and anemia. Comprehensive metabolic profile will be obtained to assess for hepatic function, renal function, and electrolyte abnormality. Lipase will be obtained to assess for pancreatitis. Urinalysis will be obtained to assess for urinary tract infection and hematuria. CT scan of the abdomen pelvis will be obtained to assess for bowel obstruction, perforation, and diverticulitis. Lab Data Attestation: I reviewed the patient's lab results. Lab results narrative: CBC was reviewed and was within normal limits. Comprehensive metabolic profile was reviewed. BUN was 63 and creatinine was 1.88. These are consistent with prior results. Lipase was reviewed and was normal at 70. PT was INR and PTT were reviewed and were within normal limits. Urinalysis was reviewed. There is no evidence of urinary tract infection or hematuria. Labs: Laboratory Results - last 24 hr 09/27/23 09/27/23 00:00 00:25 WBC 7.8 RBC 4.66 Hgb 13.7 Hct 43.3 MCV 92.9 MCH 29.4 MCHC 31.6 L RDW Std Deviation 54.5 H RDW Coeff of Gustabo 16.1 H Plt Count 242 MPV 11.2 Immature Gran % (Auto) 0.600 Neut % (Auto) 79.5 H Lymph % (Auto) 6.3 L Banks % (Auto) 11.5 H Eos % (Auto) 1.7 Baso % (Auto) 0.4 Absolute Neuts (auto) 6.2 Absolute Lymphs (auto) 0.49 L Nucleated RBC % 0 Differential Comment SCANNED PT 14.0 INR 1.1 APTT 33.0 Sodium 142 Potassium 4.1 Chloride 109 H Carbon Dioxide 24.0 Anion Gap 9 BUN 63 H Creatinine 1.88 H Estim Creat Clear Calc 32.30 Est GFR (MDRD) Af Amer 45 L Est GFR (MDRD) Non-Af 37 L BUN/Creatinine Ratio 33.5 H Glucose 120 H Calcium 8.9 Total Bilirubin 0.40 AST 48 H ALT 45 Alkaline Phosphatase 65 Total Protein 8.9 H Albumin 3.4 Globulin 5.5 H Albumin/Globulin Ratio 0.6 L Lipase 70 Urine Color Yellow Urine Clarity Clear Urine pH 6.0 Ur Specific Piggott 1.020 Urine Protein 30 H Urine Glucose (UA) Normal Urine Ketones Negative Urine Occult Blood 10 H Urine Nitrite Negative Urine Bilirubin Negative Urine Urobilinogen Normal Ur Leukocyte Esterase Negative Urine RBC 0 SEEN Urine WBC 0 SEEN Ur Squamous Epith Cells 0 SEEN Urine Bacteria 0 SEEN Urine Mucus 0 SEEN Radiography Diagnostic Testing: Clinical Impression(s) from Imaging Studies Abdomen/Pelvis CT 09/27/23 00:18 IMPRESSION: 1. Liquid feces as well as somewhat prominent gas in the colon may represent malabsorption. No demonstrated colonic wall thickening. 2. 2.2 cm space-occupying lesion arising exophytically from the anterolateral upper pole left kidney has indeterminate attenuation characteristics. This was not close avid on the PET scan, which decreases the likelihood for malignancy. Would still consider MRI or CT scan of the kidney with and without IV contrast for further evaluation. 3. 5.3 cm infrarenal abdominal aortic aneurysm which is unchanged from the 2022 exams but shows modest increase in size from the 2021 exam. Recommend abdomen/pelvis CT or MR imaging follow-up in 3-6 months. Consider surgical or endovascular referral. 4. Mildly enlarged prostate gland. 5. Gastrostomy tube in place. Previous cholecystectomy. Previous L spine surgery. Electrodes in the thoracic spinal canal. 6. Bilateral adrenal gland hyperplasia. No further imaging evaluation is necessary. However, would recommend biochemical evaluation and/or endocrine consult. Electronically Signed: Pablo Escobar MD at 2:36 EST , CT scan of the abdomen and pelvis was obtained. There is gas and liquid feces in the colon. There is no wall thickening. There is no free air or free fluid. There is no other acute abnormality noted. This was interpreted by the radiologist and was also independently reviewed by myself. Treatment and Re-Evaluation :: Patient was given IV fluids and Zofran. Patient is allergic to morphine. Patient was advised of his findings. Patient was instructed to start with a liquid diet and advance as tolerated. Patient was instructed to follow-up with his primary care physician in 5 to 7 days. Patient was instructed return if worse in any way. Patient understood and was agreeable with the plan. All questions were answered. Discharge Plan Triage Chief Complaint: Nausea/Vomiting/Diarrhea Other Complaint: Nosebleed ED Provider: Yousif Cheng Dx/Rx/DC Orders Clinical Impression: Nausea and vomiting, Abdominal pain Instructions: ED Vomiting (Adult), ED Abdominal Pain Unkn Cause Male... Prescriptions: No Action aspirin 81 mg tablet,chewable 324 mg G-tube DAILYCM fluticasone propion-salmeterol 232-14 mcg/actuation aerosol powdr breath activated 1 inh inhalation Q12 gabapentin 300 mg capsule 300 mg feeding tube TID acetylcysteine 200 mg/mL (20 %) Solution 1,200 mg G-tube DAILY 30 Days Qty: 180 0RF atorvastatin 80 mg Tablet 80 mg G-tube QHS 30 Days Qty: 30 0RF midodrine 5 mg Tablet 5 mg G-tube TID 30 Days Qty: 90 0RF ursodiol 250 mg Tablet 250 mg G-tube 0600,1200,1700 30 Days Qty: 90 0RF simethicone [Infants Simethicone] 40 mg/0.6 mL Drops,Suspension 80 mg G-tube Q6 30 Days Qty: 144 0RF sertraline 50 mg Tablet 50 mg G-tube DAILY 30 Days Qty: 30 0RF Vital AF 1.2 Papito 0.08 gram- 1.2 kcal/mL Liquid 360 ml G-tube 0600,1000,1400,1800 30 Days Qty: 40446 0RF Vital AF 1.2 Papito 0.08 gram- 1.2 kcal/mL Liquid 360 ml G-tube 0600,1000,1400,1800 30 Days Qty: 00231 0RF omeprazole 40 mg capsule,delayed release(DR/EC) 40 mg PO DAILY Qty: 30 0RF Hold Instructions: Ordered levothyroxine 50 mcg Tablet 50 mcg G-tube DAILY@0600 Qty: 30 0RF Primary Care Provider: Anderson Crowley Referrals: Anderson Crowley MD [Primary Care Provider] - 3-5 Days Disposition Disposition: Home, Self Care
--- NOTE | 2023-09-27 00:18 | CT_ITS ---
EXAM: CT ABDOMEN AND PELVIS WITH INTRAVENOUS CONTRAST CLINICAL INDICATION: Abdominal pain -- IV PO Contrast Abdominal pain -- IV PO Contrast TECHNIQUE: Helically acquired images were obtained of the abdomen and pelvis with intravenous contrast. This CT exam was performed using one or more of the following dose reduction techniques: automated exposure control, adjustment of the mA and/or kV according to patient size, and/or use of iterative reconstruction technique. CONTRAST: Oral and amp; IV Gastrografin and amp; 100mL Isovue-370 RADIATION DOSE: CTDIvol = 15.34 mGy, DLP = 909.65 mGy-cm COMPARISON: CT scan abdomen and pelvis 08/28/2023 and 02/23/2022. CT PET scan 06/25/2023. FINDINGS: LOWER THORAX: There is mild atelectasis at the visualized lung bases. No cardiomegaly. No significant pericardial effusion. ABDOMEN: LIVER: Unremarkable. Homogeneous. No focal mass. GALLBLADDER AND BILE DUCTS: The gallbladder surgically absent. No intra- or extrahepatic biliary ductal dilation. PANCREAS: Unremarkable. No focal cystic or solid mass. SPLEEN: Unremarkable. Normal size without focal cystic or solid mass. ADRENALS: There is mild thickening of the adrenal glands bilaterally, consistent with hyperplasia. No discrete adrenal nodule is visualized. KIDNEYS AND URETERS: Multiple simple appearing renal cysts bilaterally, fortunately no further evaluation is necessary. As seen on series 2, axial images 39-40, there is a 2.2 cm heterogeneous space-occupying lesion arising exophytically from the anterolateral upper pole of the left kidney with attenuation ranging from 30 HU to 45 HU. This was not glucose avid on the recent previous PET scan, which decreases likely that it represents malignancy. Normal renal size and position. STOMACH AND BOWEL: There is mildly prominent large bowel gas and feces in the colon which may be due to malabsorption. There is no demonstrated mural thickening of the colon. PELVIS: APPENDIX: A normal-appearing appendix is seen on axial images 65-69. BLADDER: See below. REPRODUCTIVE: The prostate gland is mildly enlarged and it irregularly indents the base the urinary bladder. ABDOMEN and PELVIS: INTRAPERITONEAL SPACE: Unremarkable. No ascites or other fluid collection. No free air. BONES/JOINTS: There are multilevel degenerative changes in the visualized spine. There are postsurgical changes in the lumbar spine. 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 No suspicious lytic or blastic abnormality. SOFT TISSUES: There is a right angle hernia which contains fat, but no bowel. There is an electronic box implanted in subcutaneous fat of the right buttocks. There are associated wires with electrodes in the lower thoracic spinal canal. VASCULATURE: There is a 5.3 x 5.3 cm infrarenal abdominal aortic aneurysm which contains clot. By my measurement, this was 4.6 x 5.0 cm on the 2021 exam, but unchanged compared to the August 2023 exam. There is no evidence for leakage. LYMPH NODES: Unremarkable. No enlarged lymph nodes. TUBES, LINES AND DEVICES: There is a percutaneous gastrostomy tube with its tip in the lumen of the body of the stomach. CT/Abdomen/Pelvis WITH Contrast IMPRESSION: 1. Liquid feces as well as somewhat prominent gas in the colon may represent malabsorption. No demonstrated colonic wall thickening. 2. 2.2 cm space-occupying lesion arising exophytically from the anterolateral upper pole left kidney has indeterminate attenuation characteristics. This was not close avid on the PET scan, which decreases the likelihood for malignancy. Would still consider MRI or CT scan of the kidney with and without IV contrast for further evaluation. 3. 5.3 cm infrarenal abdominal aortic aneurysm which is unchanged from the 2022 exams but shows modest increase in size from the 2021 exam. Recommend abdomen/pelvis CT or MR imaging follow-up in 3-6 months. Consider surgical or endovascular referral. 4. Mildly enlarged prostate gland. 5. Gastrostomy tube in place. Previous cholecystectomy. Previous L spine surgery. Electrodes in the thoracic spinal canal. 6. Bilateral adrenal gland hyperplasia. No further imaging evaluation is necessary. However, would recommend biochemical evaluation and/or endocrine consult. Electronically Signed: Pablo Escobar MD at 2:36 EST ,
[2023-09-27 00:28] VITALS: BP 116/86; PULSE 84; RESP 13; O2SAT 96
[2023-09-27] MEDS: Ondansetron 4 MG/2 ML Vial IV (00:31)
[2023-09-27] MEDS: 0.9% Normal Saline (1000mL) 1,000 ML 1000 ML IV (00:31)
[2023-09-27 00:35] LABS: Bacteria 0 SEEN /hpf (None Seen); Mucous, Urine 0 SEEN /hpf (<or=2+); Red Blood Cells-Urine 0 SEEN /hpf (0-5); Squamous Epithelial Cells - UA 0 SEEN /hpf (0-5); White Blood Cells 0 SEEN /hpf (0-5)
[2023-09-27 00:46] LABS: Absolute Lymphocyte Count 0.49 X10^3/uL (0.83-4.51); Absolute Neutrophil Count 6.2 X10^3/uL (2.0-7.7); Basophil# 0.03 X10^3/uL; Basophil% 0.4 % (0-1); Eosinophil# 0.13 X10^3/uL; Eosinophils% 1.7 % (0-5); Hematocrit 43.3 % (40-54); Hemoglobin 13.7 g/dL (13.0-16.5); Lymphocyte # 0.49 X10^3/ul (0.83-4.51); Lymphocyte % 6.3 % (19-41); Mean Corp Hgb Conc 31.6 g/dL (32-36); Mean Corpuscular Hgb 29.4 pg (27.0-32.0); Mean Corpuscular Volume 92.9 fL (80-94); Mean Platelet Vol. 11.2 fl (6.2-12.0); Monocyte# 0.89 X10^3/uL; Monocyte% 11.5 % (0-10); NRBC Flagged by Analyzer 0 % (0-5); Neutrophil # 6.17 X10^3/uL (2.7-7.7); Neutrophil % 79.5 % (47-70); POSITIVE DIFFERENTIAL YES; Platelet Count 242 K/mm3 (150-450); RBC Distribution Width CV 16.1 % (11.6-14.6); RBC Distribution Width SD 54.5 fl (35.1-43.9); Red Blood Count 4.66 M/mm3 (4.6-6.2); White Blood Count 7.8 K/mm3 (4.4-11.0)
[2023-09-27 00:47] LABS: Color, Urine Yellow (Yellow); Glucose, Dipstick Normal (Normal); Ketone-Dipstick Negative (Negative); Leukocyte Esterase-Dipstick Negative /ul (Negative); Nitrite-Dipstick Negative (Negative); Occult Blood-Urine 10 /ul (Negative); Protein-Dipstick 30 mg/dl (Negative); Urine Bilirubin Dipstick Negative (Negative); Urine Clarity Clear (Clear); Urine Urobilinogen Normal (Normal)
[2023-09-27 00:51] LABS: International Normalized Ratio 1.1
[2023-09-27 01:04] LABS: ALB/GLOB Ratio 0.6 RATIO (0.9-2.4); AST(SGOT) 48 U/L (15-37); Alanine Aminotransfer ALT/SGPT 45 U/L (16-61); Albumin, Serum 3.4 g/dL (3.2-5.0); Alkaline Phosphatase 65 U/L (45-117); Anion Gap 9 (5-15); BUN 63 mg/dL (7-18); BUN/Creat Ratio 33.5 RATIO (10-20); Calcium,Total 8.9 mg/dL (8.5-10.1); Chloride 109 mmol/L (98-107); Creatinine, Serum 1.88 mg/dL (0.70-1.30); EST Glomerular Filtration Rate 37 mL/min (>60); Est Glom Filt Rate - Afr Amer 45 mL/min (>60); Globulin 5.5 g/dL (2.2-4.2); Glucose 120 mg/dL (74-106); Lipase 70 U/L (13-75); Potassium 4.1 mmol/L (3.5-5.1); Protein, Total 8.9 g/dL (6.4-8.2); Sodium Level 142 mmol/L (136-145)
[2023-09-27 01:26] LABS: Differential Indicated SCAN CRITERIA MET
[2023-09-27 01:29] LABS: Differential Comment SCANNED
[2023-09-27 03:38] VITALS: PULSE 85; RESP 16; O2SAT 95
== END 2023-09-27 03:48 | disposition home or self-care (01) ==
PROVIDERS: Emergency Provider Emergency Medicine; PCP Family Medicine; Visit Provider Emergency Medicine
DX: R10.9 Unspecified abdominal pain (principal); Z93.1 Gastrostomy status; J44.9 Chronic obstructive pulmonary disease, unspecified; R11.2 Nausea with vomiting, unspecified; Z87.891 Personal history of nicotine dependence; I12.9 Hypertensive chronic kidney disease with stage 1 through stage 4 chronic kidney disease, or unspecified chronic kidney disease; N18.9 Chronic kidney disease, unspecified; Z86.73 Personal history of transient ischemic attack (TIA), and cerebral infarction without residual deficits; Z79.899 Other long term (current) drug therapy; Z79.82 Long term (current) use of aspirin; Z79.51 Long term (current) use of inhaled steroids; F32.A Depression, unspecified; Z90.49 Acquired absence of other specified parts of digestive tract; Z95.5 Presence of coronary angioplasty implant and graft; Z96.659 Presence of unspecified artificial knee joint; Z96.652 Presence of left artificial knee joint; Z96.0 Presence of urogenital implants
CPT/HCPCS: 74177; 80053; 81001; 83690; 85025; 85610; 85730; 96361; 96374; 99284; J7030; Q9967; A4216; J2405

== ENCOUNTER 2023-12-16 10:35 | Day surgery (SDC) | payer MEDICARE, OTHER, SELFPAY ==
[2023-12-16] VITALS (7 sets, daily range): BP systolic 71–153; BP diastolic 55–82; PULSE 62–79; RESP 16; TEMP 36.4–36.6; O2SAT 93–98; BMI 20.9
[2023-12-16] MEDS: Lactated Ringers 1,000 ML 15 ML IV (11:12)
--- NOTE | 2023-12-16 11:59 | HP.PCM_ITS ---
History and Physical Date of Admission: 12/16/23 83 M who presents to the office today for follow up. 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 He was initially seen [facility] ED for stroke-like symptoms 05.08.22 with TPA administered and concern for aneurysm and transferred to [facility] for management. Returned to [facility] for rehab. ?EGD 05.22.22 ([facility])?with PEG placement ?EGD 06.02.22 ([facility])?severe esophageal stenosis, Savary 30F; PEG broken and replaced with endoscopically removal PEG with one T-fastener. [facility] hospitalization 06.11.22-07.01.22 for management of celiac disease, transaminitis, pancreatitis. GI consulted with concern for possible PBC versus PSC. ?US 06.26.22?multiple gallstones with adherent tumefactive sludge versus gallbladder wall mass [facility] hospitalization 07.01.22-07.06.22 for management of cholelithiasis, gallstones pancreatitis. ?US 07.03.22?multiple gallstones and artifact suggestive of adenomyomatosis ERCP 07.03.22?esophageal stenosis, dilation at cricopharyngeus; MBD stricture secondary to stone(s) with dilation; choledocholithiasis removed via biliary sph incterotomy/balloon; CBD dilation; temporary stent placed in ventral pancreatic duct. No specimens Surgery 07.05.22?cholecystectomy [facility] hospitalization 08.28.23-08.30.23 for management of abdominal pain secondary to ileus with possible recent pancreatitis involvement (pancreatitis requiring recent hospitalization [facility]) OV 3..24- Pt reports his peg tube is falling apart. States he is still functional but broken. Is not having any abdominal pain, cramping, nausea. Is currently presenting with a nose bleed. States he has them often. No bloody or dark stools. No dizziness, weakness or SOB. States he has diarrhea daily. ROS Const Constitutional: No fatigue ENT ENT: No difficulty swallowing Gastro GI: Positive for diarrhea; No abdominal pain, belching, bloating, change in bowel habits, change in stool character, coffee ground emesis, constipation, cramping, heartburn, difficulty swallowing, feeling full early, excessive flatus, incontinent of stools, Vomiting blood/hematemesis, Blood in stool, loose stools, Black,tarry stools, nausea/dyspepsia, pain with swallowing, vomiting or other Musc Musculoskeletal: No joint pain Skin Skin: No yellowing of the eye or itchy eyes Psych Psychiatric: No anxiety and No depression Endo Endocrine: No fatigue Aller/Imm Allergy/Immunologic: No itchy eyes Andrew/Lymp Hematologic/Lymphatic: No easy bleeding or easy bruising Exam Const General: cooperative and comfortable Nutritional Appearance: average body habitus and well nourished HENCT Head: normal to inspection Ears: hearing grossly normal bilaterally Nose: external nose normal Face and sinus: normal facial exam Mouth: oral mucosae normal Throat: posterior oropharynx normal Eyes General: appearance normal, both eyes and all related structures Neck Neck: normal visual inspection Chest Chest palpation & inspection: normal inspection of the chest and normal palpation of entire chest wall Resp Effort & Inspection: normal respiratory effort Auscultation: Bilateral: Clear to Auscultation Cardio Palpation: normal PMI Rate: regular rate Rhythm: regular rhythm GI Inspection: normal to inspection Auscultation: normal bowel sounds Percussion: normal to percussion Palpation: no hepatosplenomegaly Skin General: no rashes or lesions noted Neuro General: patient alert Extrem General: normal to inspection Psych Affect: normal affect Quality Reporting Tobacco Screening ([facility] 138) Smoking Status: Former smoker Assessment and Plan Assessment and Plan (1) PEG tube malfunction: Status: Acute Plan: PEG tube malfunction. Will perform an upper endoscopy with PEG tube exchange. He will need a low-profile Nicolas tube with either they 2 cm 1 cm flange and bumper. We will have 2 sizes available 118 Mohawk and another 20 Mohawk. I have examined the patient and the H&P has been reviewed. There are no clinical changes since date of exam.
--- NOTE | 2023-12-16 12:19 | OP.CCLET_ITS ---
12/16/2023 Anderson Crowley Re : Upper GI endoscopy procedure for Alex Eaton Dear Keo This procedure was performed on December. My impressions and recommendations are as follows: Impressions : - Benign-appearing esophageal stenosis. Dilated. - Eroding gastrostomy tube present. - Normal duodenal bulb. - The PEG was removed because it was broken and was leaking, and replaced with an externally removable PEG. - No specimens collected. Recommendations : - Discharge patient to home. - Resume previous diet. - Continue present medications. My findings are described in the full procedure note, which is enclosed. If I can be of further assistance, please feel free to contact me at . Sincerely, Trevor Ruggiero, 12/16/2023 12:18:48 PM This report has been signed electronically.
--- NOTE | 2023-12-16 12:19 | OP.EGD_ITS ---
Patient Name: Alex Eaton Procedure Date: 12/16/2023 11:56 AM Date of : 1940 Age: 83 Procedure: Upper GI endoscopy Indications: Dysphagia, Exchange PEG tube due to malfunctioning gastrostomy tube Providers: Trevor Ruggiero DO Medicines: Monitored Anesthesia Care Patient Profile: This is an 83 year old male. Refer to note in patient chart for documentation of history and physical. Patient has symptoms of chronic dysphagia. Complications: No immediate complications. Procedure: Pre-Anesthesia Assessment: - Prior to the procedure, a History and Physical was performed, and patient medications and allergies were reviewed. The patient is competent. The risks and benefits of the procedure and the sedation options and risks were discussed with the patient. All questions were answered and informed consent was obtained. Patient identification and proposed procedure were verified by the physician in the pre-procedure area. Mental Status Examination: alert and oriented. Airway Examination: normal oropharyngeal airway and neck mobility. Respiratory Examination: clear to auscultation. Prophylactic Antibiotics: The patient does not require prophylactic antibiotics. Prior Anticoagulants: The patient has taken no anticoagulant or antiplatelet agents. ASA Grade Assessment: II - A patient with mild systemic disease. After reviewing the risks and benefits, the patient was deemed in satisfactory condition to undergo the procedure. The anesthesia plan was to use monitored anesthesia care (MAC). Immediately prior to administration of medications, the patient was re-assessed for adequacy to receive sedatives. The heart rate, respiratory rate, oxygen saturations, blood pressure, adequacy of pulmonary ventilation, and response to care were monitored throughout the procedure. The physical status of the patient was re-assessed after the procedure. After obtaining informed consent, the endoscope was passed under direct vision. Throughout the procedure, the patient's blood pressure, pulse, and oxygen saturations were monitored continuously. The gastroscope was introduced through the mouth, and advanced to the second part of duodenum. The upper GI endoscopy was accomplished without difficulty. The patient tolerated the procedure well. Scope In: 12:05:22 PM Scope Out: 12:11:11 PM Total Procedure Duration Time 0 hours 5 minutes 49 seconds Findings: One benign-appearing, intrinsic severe (stenosis; an endoscope cannot pass) stenosis was found 18 to 21 cm from the incisors. The stenosis was traversed after dilation. A guidewire was placed and the scope was withdrawn. Dilation was performed with a Savary dilator with no resistance at 42 Fr. The dilation site was examined and showed mild mucosal disruption. Estimated blood loss was minimal. There was evidence of an eroding gastrostomy tube present in the gastric body. The PEG required removal because it was broken and was leaking. The PEG was removed under endoscopic vision. Removal was easily accomplished. An externally removable 20 Fr Bard gastrostomy tube was lubricated. The replacement tube was placed using the existing gastrostomy port. The final position of the gastrostomy tube was confirmed by relook endoscopy, and skin marking noted to be 4 cm at the external bumper. The final tension and compression of the abdominal wall by the PEG tube and external bumper were checked. The tube was capped, and the tube site was cleaned and dressed. The duodenal bulb was normal. Impression: - Benign-appearing esophageal stenosis. Dilated. - Eroding gastrostomy tube present. - Normal duodenal bulb. - The PEG was removed because it was broken and was leaking, and replaced with an externally removable PEG. - No specimens collected. Recommendation: - Discharge patient to home. - Resume previous diet. - Continue present medications. Procedure Code(s): --- Professional --- 53856, Esophagogastroduodenoscopy, flexible, transoral; with directed placement of percutaneous gastrostomy tube 88529, Esophagogastroduodenoscopy, flexible, transoral; with insertion of guide wire followed by passage of dilator(s) through esophagus over guide wire CPT copyright 2021 [employer]. All rights reserved. The codes documented in this report are preliminary and upon fire management officer review may be revised to meet current compliance requirements. Trevor Ruggiero DO 12/16/2023 12:18:48 PM This report has been signed electronically. Number of Addenda: 0 Note Initiated On: 12/16/2023 11:56 AM
== END 2023-12-16 13:13 | disposition home or self-care (01) ==
LOC: EN 10:35 → AC 10:38
PROVIDERS: PCP Family Medicine; Referring Provider Family Medicine; Visit Provider Internal Medicine Gastroenterology
PROC: 0DJ08ZZ Inspection of Upper Intestinal Tract, Via Natural or Artificial Opening Endoscopic (ICD-10-PCS; CPT 43235; principal; 2023-12-16 11:40)
DX: K94.23 Gastrostomy malfunction (principal); K22.2 Esophageal obstruction
CPT/HCPCS: 43762; 43248; J7120; J2405

== ENCOUNTER 2024-12-21 11:46 | Emergency (ER) | payer MEDICARE, OTHER, SELFPAY ==
[2024-12-21 11:47] VITALS: BP 153/113; PULSE 91; RESP 14; TEMP 36.4; O2SAT 96; BMI 18.0
--- NOTE | 2024-12-21 12:01 | RAD_ITS ---
EXAM: XR Chest, 2 Views CLINICAL INDICATION: COUGH TECHNIQUE: Frontal and lateral views of the chest. COMPARISON: No relevant prior studies available. FINDINGS: LUNGS AND PLEURAL SPACES: Hyperlucent lungs. Flattening of the diaphragm. No pneumothorax. No focal consolidation. HEART: Unremarkable. No cardiomegaly. MEDIASTINUM: Unremarkable. Normal mediastinal contour. BONES/JOINTS: Unremarkable. No acute fracture. RAD/Chest PA and Lateral IMPRESSION: 1. No focal consolidation. 2. Suggestion of COPD. Reading [facility]
[2024-12-21] MEDS: 0.9% Normal Saline (1000mL) 1,000 ML 999 ML IV ×2 (12:16→15:49)
[2024-12-21] MEDS: Ondansetron 4 MG/2 ML Vial IV (12:16)
--- NOTE | 2024-12-21 12:24 | EDS_ITS ---
HPI History of Present Illness Chief Complaint: Nausea/Vomiting/Diarrhea Narrative Narrative: Chief complaint and HPI: Nausea, vomiting, diarrhea. 84-year-old male with past medical history of CVA with chronic dysphagia status post PEG, history of laryngeal cancer status post treatment, hypothyroidism, orthostatic hypotension on midodrine presents for evaluation of nausea, vomiting, diarrhea. Onset of symptoms Wednesday. Patient states Wednesday he started develop chills with nonbloody emesis/diarrhea. He states that he has continued his tube feeds. Patient states he is not supposed to take anything by mouth but occasionally still eats and drinks. He has not had anything over the last several days due to his symptoms. He endorses a cough but states this is more chronic given his COPD. He denies any fever, URI symptoms, chest pain, shortness of breath, dysuria. Does endorse some vague abdominal pain. Review of systems: See HPI Medications: As listed on the chart Allergies: As listed on the chart PFSH: Per chart Vital signs: As listed on the chart. Reviewed. Physical exam: Gen: A&O x3, NAD Head: Normocephalic, atraumatic Eyes: No sclera icterus, conjunctiva clear ENT: Dry mucous membranes Neck: Trachea midline, No JVD CV: RRR, no murmurs, no peripheral edema Resp: Lungs CTA BL, no w/r/c GI: Abd soft, mildly distended, mildly tender to palpation diffusely no rebound or rigidity, PEG tube insertion site clean : No CVA tenderness. Circumcised penis. No penile tenderness or discharge. No penile or testicular swelling. Normal lie and position of the testicles. No testicular tenderness, masses, or skin changes. Musc: Full ROM, no deformity Skin: Warm, dry Neuro: Alert, oriented, grossly intact, sensation intact Psych: Cooperative, appropriate mood and affect PFSH PFSH Medical History Thyroid disease Ambulates with cane Poor historian Blackout Lung nodule, multiple CRF (chronic renal failure) Alcohol use Difficulty chewing Hiatal hernia Dyspnea Alcohol abuse Chronic pain Polycystic kidney disease Microscopic hematuria History of malignant neoplasm of larynx Silent aspiration Restenosis of arterial stent Wears dentures Wears glasses Cancer History of steroid therapy Arthritis Back pain Injury of head and neck Hoarseness Loss of consciousness TIA (transient ischemic attack) Gastric reflux Former smoker Shortness of breath on exertion Chronic cough History of pain when walking History of stress test History of echocardiogram Hypertension Cardiology follow-up encounter Chest pain Pharyngeal cancer Neuropathic pain Hypertension Lumbar spinal stenosis Asymmetric septal hypertrophy Grade I diastolic dysfunction Bifascicular bundle branch block Benign neoplasm of colon Nephrolithiasis COPD (chronic obstructive pulmonary disease) Osteoarthritis of left knee Depression GERD (gastroesophageal reflux disease) Rhinitis BPH (benign prostatic hypertrophy) History of hypertension Former smoker Home Medications ?Medication ?Instructions ?Recorded ?Last Taken ?Type aspirin 81 mg chewable tablet 324 mg G-tube DAILYCM bl ood thinner 06/11/22 12/12/23 History gabapentin 300 mg capsule 300 mg feeding tube TID nerv e pain 07/01/22 12/16/23 History atorvastatin 80 mg tablet 80 mg G-tube QHS 30 days #30 tabs 07/15/22 12/15/23 Rx nut.tx impaired digestive 360 ml G-tube 0600,1000,1400 ,1800 07/15/22 12/15/23 Rx fxn-fiber 0.08 gram-1.2 kcal/mL 30 days #43,200 mL oral liquid (Vital AF 1.2 Papito) sertraline 50 mg tablet 50 mg G-tube DAILY 30 days # 30 tabs 07/15/22 12/15/23 Rx ursodiol 250 mg tablet 250 mg G-tube 0600,1200,1700 30 07/15/22 12/16/23 Rx days #90 tabs levothyroxine 50 mcg tablet 50 mcg G-tube DAILY@0600 # 30 tabs 08/30/23 12/16/23 Rx midodrine 5 mg tablet 2.5 mg G-tube BID 12/15/23 0 12/15/23 History ondansetron HCl 4 mg/5 mL oral 4 mg (5 mL) PO Q8H PRN nausea and 12/21/24 Unknown Rx solution vomiting 5 days #75 mL Allergy/AdvReac Type Severity Reaction Status Date / Time mold Allergy NEEDS Verified 12/21/24 11:51 FOLLOW-UP house dust AdvReac SNEEZING Verified 12/21/24 11:51 morphine AdvReac Vomiting Verified 12/21/24 11:51 poison kayleen extract AdvReac Rash Verified 12/21/24 11:51 Family History Mother CAD (coronary artery disease) Brother COPD (chronic obstructive pulmonary disease) Surgical History History of cholecystectomy History of heart artery stent Status post insertion of percutaneous endoscopic gastrostomy (PEG) tube Ureteral stent present Spinal cord stimulator status Internal carotid artery stent present History of esophageal dilatation History of cardiac catheterization Hx of colonoscopy History of laminectomy S/P total knee arthroplasty H/O hernia repair History of tonsillectomy Status post total left knee replacement Social History household members: none housing: house number of children: 0 current occupational status: retired Smoking Status: Former smoker Smokeless tobacco user: chewing tobacco and other how long ago did patient quit smokin alcohol intake: former substance use type: does not use EXAM Physical Exam Const Vital Signs: 12/21/24 11:47 12/21/24 13:57 12/21/24 14:48 Temperature 97.5 F L Temperature Source Oral Pulse Rate 91 80 79 Respiratory Rate 14 16 12 Blood Pressure 153/113 H 163/95 H 178/98 H Blood Pressure Mean 126 117 124 Pulse Ox 96 97 98 Oxygen Delivery Method Room Air Nasal Cannula MDM MDM MDM Narrative Medical decision making narrative: 84-year-old male with past medical history of CVA with chronic dysphagia status post PEG, history of laryngeal cancer status post treatment, hypothyroidism, orthostatic hypotension on midodrine presents for evaluation of nausea, vomiting, diarrhea. Differential diagnosis includes but is not limited to viral illness, obstruction, colitis, pancreatitis, aspiration pneumonia, UTI. NS bolus, Zofran ordered for symptoms. Laboratory workup ordered including CT abdomen pelvis as well as chest x-ray. CBC without leukocytosis or anemia. CMP shows mild dehydration. Patient at baseline renal insufficiency. Patient has mild transaminitis however on chart review has had this in the past. No right upper quadrant abdominal pain. Lipase unremarkable. UA negative for UTI. COVID, flu, RSV negative. Chest x-ray was personally viewed interpreted by me, ED physician. No pneumonia, effusion. Patient has chronic lung changes from COPD. CT abdomen pelvis shows scattered calcified atherosclerotic disease of the descending aorta with aneurysm measuring up to 6.1 cm in diameter. Right inguinal hernia. On reevaluation, patient states his nausea is improved. He has not had any emesis. Patient was updated on his results and comfortable with discharging home. I did reach out to vascular surgery about his descending aorta with aneurysm. I spoke with Annamarie at the vascular clinic. Agrees with follow-up outpatient. No emergent treatment needed. After filling out discharge paperwork, patient states that he does not feel comfortable discharging home and would like to be admitted. Hospitalist aamir. I spoke with Dr. Lara, patient does not meet admission criteria. Recommend another NS bolus and within that time if he has a bowel movement to obtain stool cultures. Plan is for discharge home. NS bolus ordered. Stool cultures ordered. Patient was updated on the recommendations of the hospitalist and that he does not meet admission criteria. He confirmed understanding. After NS bolus, patient will be discharged home. Patient signed out to oncoming provider. Impression: 1. Nausea and vomiting 2. Diarrhea 3. Incidental 6.1 cm descending aortic aneurysm Lab Data Labs: Laboratory Results - last 24 hr 12/21/24 12/21/24 12:15 13:49 WBC 10.4 RBC 4.76 Hgb 14.3 Hct 44.1 MCV 92.6 MCH 30.0 MCHC 32.4 RDW Std Deviation 46.9 H RDW Coeff of [place] 13.8 Plt Count 240 MPV 10.5 Immature Gran % (Auto) 0.400 Neut % (Auto) 87.4 H Lymph % (Auto) 4.3 L [place] % (Auto) 7.8 Eos % (Auto) 0.0 Baso % (Auto) 0.1 Absolute Neuts (auto) 9.1 H Absolute Lymphs (auto) 0.45 L Nucleated RBC % 0 Sodium 145 Potassium 4.3 Chloride 106 Carbon Dioxide 23.3 Anion Gap 16 H BUN 66 H Creatinine 1.97 H Estim Creat Clear Calc 25.31 L Est GFR (MDRD) Non-Af 33 L BUN/Creatinine Ratio 33.2 H Glucose 149 H Lactic Acid 2.0 Calcium 10.0 Total Bilirubin 0.38 AST 86 H ALT 94 H Alkaline Phosphatase 120 Total Protein 9.1 H Albumin 4.8 Globulin 4.4 H Albumin/Globulin Ratio 1.1 Lipase 57 Urine Color Straw Urine Clarity Clear Urine pH 6.0 Ur Specific [place] 1.010 Urine Protein 30 H Urine Glucose (UA) Normal Urine Ketones Negative Urine Occult Blood 10 H Urine Nitrite Negative Urine Bilirubin Negative Urine Urobilinogen Normal Ur Leukocyte Esterase Negative Radiography Diagnostic Testing: Clinical Impression(s) from Imaging Studies Chest X-Ray 12/21/24 12:01 IMPRESSION: 1. No focal consolidation. 2. Suggestion of COPD. Reading Location: [facility] Abdomen/Pelvis CT 12/21/24 12:30 IMPRESSION: 1. Scattered calcified atherosclerotic disease of the descending aorta with aneurysm measuring up to 6.1 cm in diameter. No active contrast extravasation in the aneurysm sac to suggest bleed. However, this is not a dedicated CT angiogram. 2. Right inguinal hernia. Reading Location: [facility] Discharge Plan Triage Chief Complaint: Nausea/Vomiting/Diarrhea ED Provider: Luciano Jama Dx/Rx/DC Orders Clinical Impression: Viral gastroenteritis Instructions: ED Diet Vomiting Diarrhea Prescriptions: New ondansetron HCl 4 mg/5 mL solution 4 mg PO Q8H PRN (Reason: nausea and vomiting) 5 Days Qty: 75 0RF Rx Instructions: Down PEG tube No Action aspirin 81 mg tablet,chewable 324 mg G-tube DAILYCM gabapentin 300 mg capsule 300 mg feeding tube TID atorvastatin 80 mg Tablet 80 mg G-tube QHS 30 Days Qty: 30 0RF ursodiol 250 mg Tablet 250 mg G-tube 0600,1200,1700 30 Days Qty: 90 0RF sertraline 50 mg Tablet 50 mg G-tube DAILY 30 Days Qty: 30 0RF Vital AF 1.2 Papito 0.08 gram- 1.2 kcal/mL Liquid 360 ml G-tube 0600,1000,1400,1800 30 Days Qty: 23613 0RF levothyroxine 50 mcg Tablet 50 mcg G-tube DAILY@0600 Qty: 30 0RF midodrine 5 mg Tablet 2.5 mg G-tube BID Primary Care Provider: Anderson Crowley Referrals: Yousif Kulkarni MD [Med Staff - Active Staff] - 3-5 Days Anderson Crowley MD [Primary Care Provider] - 3-5 Days Activity Restrictions/Additional Instructions: Zofran as needed for nausea. You received Zofran here in the emergency department, no Zofran for 8 hours. Follow-up with primary care physician. Return back to the ED if symptoms change or worsen. CT abdomen pelvis shows a descending aorta with aneurysm measuring up to 6.1 cm diameter. This will need to be further worked up outpatient as you will likely need surgery given this has an increase of rupture. Follow-up with vascular surgery at the number attached above. You need to call to make an appointment as soon as possible. If you develop any severe or worsening abdominal pain/chest pain you need to be reevaluated. Follow-up with primary care physician. Print Language: Amharic Disposition Disposition: Home, Self Care
--- NOTE | 2024-12-21 12:30 | CT_ITS ---
EXAM: CT Abdomen and Pelvis With Intravenous Contrast CLINICAL INDICATION: NAUSEA, VOMITING, DIARRHEA TECHNIQUE: Axial computed tomography images of the abdomen and pelvis with intravenous contrast. This CT exam was performed using one or more of the following dose reduction techniques: automated exposure control, adjustment of the mA and/or kV according to patient size, and/or use of iterative reconstruction technique. COMPARISON: No relevant prior studies available. FINDINGS: LUNG BASES: Unremarkable. No mass. No consolidation. ABDOMEN: LIVER: Fatty infiltration of the liver. GALLBLADDER AND BILE DUCTS: Gallbladder is surgically absent. No ductal dilation. PANCREAS: Unremarkable. No mass. No ductal dilation. SPLEEN: Unremarkable. No splenomegaly. ADRENALS: Unremarkable. No mass. KIDNEYS AND URETERS: Bilateral renal cysts. No hydronephrosis. STOMACH AND BOWEL: Unremarkable. No obstruction. No mucosal thickening. PELVIS: APPENDIX: No findings to suggest acute appendicitis. BLADDER: Unremarkable. No mass. REPRODUCTIVE: Unremarkable as visualized. ABDOMEN and PELVIS: INTRAPERITONEAL SPACE: Unremarkable. No free air. No significant fluid collection. BONES/JOINTS: Status post posterior fusion of L4-5. Intact hardware. No acute fracture. No dislocation. SOFT TISSUES: Right inguinal hernia. VASCULATURE: Scattered calcified atherosclerotic disease of the descending aorta with aneurysm measuring up to 6.1 cm in diameter. No active contrast extravasation in the aneurysm sac to suggest bleed. However, this is not a dedicated CT angiogram. LYMPH NODES: Unremarkable. No enlarged lymph nodes. TUBES, LINES AND DEVICES: G-tube in place. CT/Abdomen/Pelvis W IV Cont ONLY IMPRESSION: 1. Scattered calcified atherosclerotic disease of the descending aorta with an eurysm measuring up to 6.1 cm in diameter. No active contrast extravasation in the aneurysm sac to suggest bleed. However, t his is not a dedicated CT angiogram. 2. Right inguinal hernia. Reading [facility]
[2024-12-21 12:41] LABS: Absolute Lymphocyte Count 0.45 X10^3/uL (0.83-4.51); Absolute Neutrophil Count 9.1 X10^3/uL (2.0-7.7); Basophil# 0.01 X10^3/uL; Basophil% 0.1 % (0-1); Hematocrit 44.1 % (40-54); Hemoglobin 14.3 g/dL (13.0-16.5); Lymphocyte # 0.45 X10^3/ul (0.83-4.51); Lymphocyte % 4.3 % (19-41); Mean Corp Hgb Conc 32.4 g/dL (32-36); Mean Corpuscular Volume 92.6 fL (80-94); Mean Platelet Vol. 10.5 fl (6.2-12.0); Monocyte# 0.81 X10^3/uL; Monocyte% 7.8 % (0-10); NRBC Flagged by Analyzer 0 % (0-5); Neutrophil % 87.4 % (47-70); POSITIVE DIFFERENTIAL YES; Platelet Count 240 K/mm3 (150-450); RBC Distribution Width CV 13.8 % (11.6-14.6); RBC Distribution Width SD 46.9 fl (35.1-43.9); Red Blood Count 4.76 M/mm3 (4.6-6.2); White Blood Count 10.4 K/mm3 (4.4-11.0)
[2024-12-21 13:03] LABS: ALB/GLOB Ratio 1.1 RATIO (0.9-2.4); AST(SGOT) 86 U/L (<=37); Alanine Aminotransfer ALT/SGPT 94 U/L (<=46); Albumin, Serum 4.8 g/dL (3.4-4.8); Alkaline Phosphatase 120 U/L (40-129); Anion Gap 16 (5-15); BUN 66 mg/dL (4-19); BUN/Creat Ratio 33.2 RATIO (10-20); Carbon Dioxide 23.3 mmol/L (21.0-32.0); Chloride 106 mmol/L (98-108); Creatinine, Serum 1.97 mg/dL (0.70-1.20); EST Glomerular Filtration Rate 33 (>60); Estimated Creatinine Clearance 25.31 ml/min (50-250); Globulin 4.4 g/dL (2.2-4.2); Glucose 149 mg/dL (70-99); Lipase 57 U/L (13-75); Potassium 4.3 mmol/L (3.3-5.1); Protein, Total 9.1 g/dL (5.9-8.4); Sodium Level 145 mmol/L (133-145); Total Bilirubin 0.38 mg/dL (0.00-1.30)
[2024-12-21 13:57] VITALS: BP 163/95; PULSE 80; RESP 16; O2SAT 97
[2024-12-21 14:01] LABS: Color, Urine Straw (Yellow); Glucose, Dipstick Normal (Normal); Ketone-Dipstick Negative (Negative); Leukocyte Esterase-Dipstick Negative /ul (Negative); Nitrite-Dipstick Negative (Negative); Occult Blood-Urine 10 /ul (Negative); Protein-Dipstick 30 mg/dl (Negative); Urine Bilirubin Dipstick Negative (Negative); Urine Clarity Clear (Clear); Urine Urobilinogen Normal (Normal)
[2024-12-21 14:48] VITALS: BP 178/98; PULSE 79; RESP 12; O2SAT 98
[2024-12-21 16:00] VITALS: BP 170/92; PULSE 85; RESP 11; O2SAT 95
[2024-12-21 16:28] LABS: Reflex Lactate? Y
[2024-12-21 17:36] LABS: Lactic Acid 1.7 mmol/L (0.0-2.0)
[2024-12-21 18:00] VITALS: BP 170/96; PULSE 92; RESP 16; O2SAT 96
== END 2024-12-21 18:36 | disposition home or self-care (01) ==
PROVIDERS: Emergency Provider Surgery; PCP Family Medicine; Visit Provider Surgery
DX: A08.4 Viral intestinal infection, unspecified (principal); Z93.1 Gastrostomy status; J44.9 Chronic obstructive pulmonary disease, unspecified; I71.9 Aortic aneurysm of unspecified site, without rupture; N18.9 Chronic kidney disease, unspecified; Z86.73 Personal history of transient ischemic attack (TIA), and cerebral infarction without residual deficits; Z85.21 Personal history of malignant neoplasm of larynx; Z79.82 Long term (current) use of aspirin; Z79.899 Other long term (current) drug therapy; F32.A Depression, unspecified; E03.9 Hypothyroidism, unspecified; Z79.890 Hormone replacement therapy; Z90.49 Acquired absence of other specified parts of digestive tract; Z95.5 Presence of coronary angioplasty implant and graft; Z96.659 Presence of unspecified artificial knee joint; Z96.652 Presence of left artificial knee joint; F17.220 Nicotine dependence, chewing tobacco, uncomplicated; R19.7 Diarrhea, unspecified; I12.9 Hypertensive chronic kidney disease with stage 1 through stage 4 chronic kidney disease, or unspecified chronic kidney disease
CPT/HCPCS: 71046; 74177; 80053; 81002; 83605; 83690; 85025; 87631; 96361; 96374; 99284; Q9967; J2405

== ENCOUNTER 2025-07-22 08:28 | Emergency (ER) | payer MEDICARE, OTHER, SELFPAY ==
[2025-07-22 08:29] VITALS: BP 128/89; PULSE 91; RESP 16; TEMP 36.3; O2SAT 97; BMI 18.8
--- NOTE | 2025-07-22 08:54 | ED.VIS.FALL ---
HPI HPI - Fall History of Present Illness Chief Complaint: Fall Informant: patient Narrative Narrative: 84-year-old male presenting to the emergency room following a fall. Patient states on Wednesday (posttrauma day 5) he was going down the stairs to his basement to do a load of laundry carrying a basket when he got to the bottom and tripped over his feet. He states he landed on his right side with his right elbow against his chest. Since that time he has had pain in the right anterior lateral lower chest wall. He denies any change in breathing hemoptysis. He denies any abdominal pain. When asked if he has any known lung issues the patient states he does not know. He then tells me that he has COPD. Patient has a PEG tube. He notes he has had a bloody nose but he does not want that evaluated. He states he is just here because of the rib pain. States he has fallen in the past and has had rib pain but only lasted a few days so he would like to know if he has something broken. He would also like something for pain. PFSH PFSH Medical History Thyroid disease Ambulates with cane Wei historian Blackout Lung nodule, multiple CRF (chronic renal failure) Alcohol use Difficulty chewing Hiatal hernia Dyspnea Alcohol abuse Chronic pain Polycystic kidney disease Microscopic hematuria History of malignant neoplasm of larynx Silent aspiration Restenosis of arterial stent Wears dentures Wears glasses Cancer History of steroid therapy Arthritis Back pain Injury of head and neck Hoarseness Loss of consciousness TIA (transient ischemic attack) Gastric reflux Former smoker Shortness of breath on exertion Chronic cough History of pain when walking History of stress test History of echocardiogram Hypertension Cardiology follow-up encounter Chest pain Pharyngeal cancer Neuropathic pain Hypertension Lumbar spinal stenosis Asymmetric septal hypertrophy Grade I diastolic dysfunction Bifascicular bundle branch block Benign neoplasm of colon Nephrolithiasis COPD (chronic obstructive pulmonary disease) Osteoarthritis of left knee Depression GERD (gastroesophageal reflux disease) Rhinitis BPH (benign prostatic hypertrophy) History of hypertension Former smoker Home Medications ?Medication ?Instructions ?Recorded ?Last Taken ?Type aspirin 81 mg chewable tablet 324 mg G-tube DAILYCM blood thinner 06/11/22 12/12/23 History gabapentin 300 mg capsule 300 mg feeding tube TID nerve pain 07/01/22 12/16/23 History atorvastatin 80 mg tablet 80 mg G-tube QHS 30 days #30 tabs 07/15/22 12/15/23 Rx nut.tx impaired digestive 360 ml G-tube 0600,1000,1400,1800 07/15/22 12/15/23 Rx fxn-fiber 0.08 gram-1.2 kcal/mL 30 days #43,200 mL oral liquid (Vital AF 1.2 Papito) sertraline 50 mg tablet 50 mg G-tube DAILY 30 days #30 tabs 07/15/22 12/15/23 Rx ursodiol 250 mg tablet 250 mg G-tube 0600,1200,1700 30 07/15/22 12/16/23 Rx days #90 tabs levothyroxine 50 mcg tablet 50 mcg G-tube DAILY@0600 #30 tabs 08/30/23 12/16/23 Rx midodrine 5 mg tablet 2.5 mg G-tube BID 12/15/23 12/15/23 History ondansetron HCl 4 mg/5 mL oral 4 mg (5 mL) PO Q8H PRN nausea and 12/21/24 Unknown Rx solution vomiting 5 days #75 mL oxycodone 5 mg tablet 5 mg PO Q6H PRN pain 3 days #12 07/22/25 Unknown Rx tabs Allergy/AdvReac Type Severity Reaction Status Date / Time mold Allergy NEEDS Verified 12/21/24 11:51 FOLLOW-UP house dust AdvReac SNEEZING Verified 12/21/24 11:51 morphine AdvReac Vomiting Verified 12/21/24 11:51 poison kayleen extract AdvReac Rash Verified 12/21/24 11:51 Family History Mother CAD (coronary artery disease) Brother COPD (chronic obstructive pulmonary disease) Surgical History History of cholecystectomy History of heart artery stent Status post insertion of percutaneous endoscopic gastrostomy (PEG) tube Ureteral stent present Spinal cord stimulator status Internal carotid artery stent present History of esophageal dilatation History of cardiac catheterization Hx of colonoscopy History of laminectomy S/P total knee arthroplasty H/O hernia repair History of tonsillectomy Status post total left knee replacement Social History household members: none housing: house number of children: 0 current occupational status: retired Smoking Status: Former smoker Smokeless tobacco user: chewing tobacco and other how long ago did patient quit smokin alcohol intake: former substance use type: does not use ROS ROS ED Constitutional Constitutional ED: Denies chills, fever(s) or weight loss Eyes Eyes: Denies change in vision or diplopia ENT ENT ED: Reports other Details: Left epistaxis ; Denies ear pain, rhinorrhea or sore throat Cardiovascular Cardiovascular: Reports chest pain and other Details: See history of present illness ; Denies orthopnea, palpitations or racing heartbeat Respiratory/Chest Respiratory/Chest: Denies cough, dyspnea or orthopnea Gastrointestinal Gastrointestinal: Denies abdominal pain, diarrhea, nausea or vomiting Genitourinary Genitourinary ED: Denies dysuria, hematuria or urinary frequency Musculoskeletal Musculoskeletal: Denies arthralgias, back pain, myalgias or neck pain Integumentary Denies abscess or rash Neurologic Neurologic: Denies headache(s) or weakness Psychiatric Psychiatric: Denies anxiety, depression, suicidal ideation or suicidal thoughts Endocrine Endocrinology: Denies polydipsia, polyphagia or polyuria Allergic/Immunologic Allergic/Immunologic ED: Denies mouth swelling, tongue swelling or urticaria EXAM Physical Exam Const Vital Signs: 07/22/25 08:29 07/22/25 08:55 Temperature 97.3 F L Temperature Source Temporal Pulse Rate 91 Respiratory Rate 16 Respiratory Effort Normal Respiratory Pattern Normal Blood Pressure 128/89 H Blood Pressure Mean 102 Pulse Ox 97 Oxygen Delivery Method Room Air Room Air Positive well nourished and well developed General Appearance ED: well developed and NAD HEENT Reports normocephalic, head/scalp atraumatic and moist mucous membranes HEENT Narrative: There is a tissue in the left naris with dried blood. Eyes PERRL and EOMs intact bilaterally Neck full ROM, no lymphadenopathy, supple and no JVD Chest Wall Chest Narrative: Patient has some yellow faint ecchymosis over the lower anterior lateral rib cage. Just cephalad to this ecchymosis the ribs are tender to palpation. Do not appreciate any crepitance or subcutaneous emphysema. Resp normal respiratory effort and clear to auscultation bilaterally Cardio regular rate, regular rhythm and no murmurs GI normal to inspection, nondistended, normoactive bowel sounds and non-tender Palpation: soft Back/Spine no CVA tenderness and normal ROM Extremity normal to inspection General Extremety ED: Negative for edema General Extremity: Negative for edema Neuro oriented x3 and CN's II-XII intact bilaterally Sensorium / Orientation: alert Motor Exam: strength 5/5 throughout Psych mental status grossly normal Mood & Affect: Negative for depressed or tearful Skin no rashes or lesions noted and no wounds MDM MDM MDM Narrative Medical decision making narrative: Differential diagnosis includes but not limited to rib fracture rib contusion costal cartilage separation chest wall contusion pneumothorax hemothorax pulmonary contusion Patient received a dose of oxycodone and a CT of the chest was obtained. This demonstrates fractures of the 7th, 8th and 9th ribs right. Do not appreciate a hemopneumothorax. This was read by radiology reviewed by myself. Patient does have COPD he and states that a lot of times in the mornings he will bring up some thick mucus. I think that is most likely what we are seeing on the CT regarding impression #4. Patient denies any fevers. He is comfortable being discharged home. I will write for some pain medication. He is aware of complications including sedation nausea constipation confusion etc. he understands return instructions. History & Record Review Discussion w/independent historian: Patient Additional record(s) reviewed:: Prior outpatient record, Prior ED visit and Prior labs Radiography Diagnostic Testing: Clinical Impression(s) from Imaging Studies Chest CT 07/22/25 09:00 IMPRESSION: 1. Nondisplaced right anterolateral 7th to 9th rib fractures. No pneumothorax. 2. Moderate centrilobular emphysema. 3. Mild bronchial wall thickening in the right lung, likely infectious or inflammatory in etiology. 4. Partial right lower lobe distal airway occlusion, possibly due to mucoid impaction, infectious debris or aspirate. 5. Coronary artery calcification (CAC) is present. 6. Infrarenal abdominal aortic aneurysm, which is only partially imaged on the current study. Reading Location: [facility] Discharge Plan Triage Chief Complaint: Fall ED Provider: Aguilar Whiting Dx/Rx/DC Orders Clinical Impression: Fracture of right seventh rib, Fracture of right eighth rib, Fall, COPD (chronic obstructive pulmonary disease), Chest pain, Fracture of right ninth rib Instructions: ED Rib Fracture Prescriptions: New oxycodone 5 mg tablet 5 mg PO Q6H PRN (Reason: pain) 3 Days Qty: 12 0RF No Action aspirin 81 mg tablet,chewable 324 mg G-tube DAILYCM gabapentin 300 mg capsule 300 mg feeding tube TID atorvastatin 80 mg Tablet 80 mg G-tube QHS 30 Days Qty: 30 0RF ursodiol 250 mg Tablet 250 mg G-tube 0600,1200,1700 30 Days Qty: 90 0RF sertraline 50 mg Tablet 50 mg G-tube DAILY 30 Days Qty: 30 0RF Vital AF 1.2 [place] 0.08 gram- 1.2 kcal/mL Liquid 360 ml G-tube 0600,1000,1400,1800 30 Days Qty: 60040 0RF levothyroxine 50 mcg Tablet 50 mcg G-tube DAILY@0600 Qty: 30 0RF midodrine 5 mg Tablet 2.5 mg G-tube BID ondansetron HCl 4 mg/5 mL solution 4 mg PO Q8H PRN (Reason: nausea and vomiting) 5 Days Qty: 75 0RF Rx Instructions: Down PEG tube Primary Care Provider: Anderson Crowley Referrals: Anderson Crowley MD [Primary Care Provider, Medical] - 3-5 Days Print Language: Mohawk
--- NOTE | 2025-07-22 09:00 | CT_ITS ---
PROCEDURE: CT/Chest without Contrast
[2025-07-22 10:16] VITALS: BP 139/71; PULSE 76; RESP 16; TEMP 36.6; O2SAT 98
== END 2025-07-22 10:17 | disposition home or self-care (01) ==
PROVIDERS: Emergency Provider Emergency Medicine; PCP Family Medicine; Visit Provider Emergency Medicine
DX: S22.41XA Multiple fractures of ribs, right side, initial encounter for closed fracture (principal); Z93.1 Gastrostomy status; I50.9 Heart failure, unspecified; I11.0 Hypertensive heart disease with heart failure; J44.9 Chronic obstructive pulmonary disease, unspecified; R07.9 Chest pain, unspecified; W01.10XA Fall on same level from slipping, tripping and stumbling with subsequent striking against unspecified object, initial encounter; Y93.89 Activity, other specified; Z85.819 Personal history of malignant neoplasm of unspecified site of lip, oral cavity, and pharynx; Z86.73 Personal history of transient ischemic attack (TIA), and cerebral infarction without residual deficits; Z79.82 Long term (current) use of aspirin; Z79.899 Other long term (current) drug therapy; F32.A Depression, unspecified; Z90.49 Acquired absence of other specified parts of digestive tract; Z95.5 Presence of coronary angioplasty implant and graft; Z96.652 Presence of left artificial knee joint; F17.220 Nicotine dependence, chewing tobacco, uncomplicated
CPT/HCPCS: 71250; 99282; A4216